=== PATIENT | male | born 1950 | race Caucasian/White ===

== ENCOUNTER 2018-03-13 10:09 | Inpatient (IN) | payer OTHER, MEDICARE ==
[~2018-03-13] VITALS: Ht 170.2 cm; Wt 73.6 kg
[2018-03-13 10:18] VITALS: BP 109/59; PULSE 77; RESP 16; TEMP 98.6; O2SAT 96
[2018-03-13 11:42] LABS: AUTOMATED NEUTROPHIL # 4.8 TH/MM3 (1.8-7.7); BASOPHIL # 0.1 TH/MM3 (0-0.2); BASOPHIL % 1.2 % (0.0-2.0); EOSINOPHIL # 0.1 TH/MM3 (0-0.4); EOSINOPHIL % 1.7 % (0.0-4.0); HEMOGLOBIN 14.1 GM/DL (13.0-17.0); LYMPH % 18.2 % (9.0-44.0); LYMPHOCYTE # 1.3 TH/MM3 (1.0-4.8); MEAN CELL VOLUME 91.8 FL (80.0-100.0); MEAN CORPUSCULAR HEMOGLOBIN 31.5 PG (27.0-34.0); MEAN CORPUSCULAR HGB CONC 34.4 % (32.0-36.0); MEAN PLATELET VOLUME 7.7 FL (7.0-11.0); MONO % 11.2 % (0.0-8.0); MONOCYTE # 0.8 TH/MM3 (0-0.9); NEUT % 67.7 % (16.0-70.0); PLATELET COUNT 392 TH/MM3 (150-450); RED BLOOD COUNT 4.47 MIL/MM3 (4.50-5.90); RED CELL DISTRIBUTION WIDTH 17.2 % (11.6-17.2); WHITE BLOOD COUNT 7.2 TH/MM3 (4.0-11.0)
--- NOTE | 2018-03-13 11:59 | PD ---
HPI Chief Complaint: Skin Problem Time Seen by Provider: 10:54 Travel History International Travel<30 days: No Contact w/Intl Traveler<30days: No Traveled to known affect area: No History of Present Illness HPI 68-year-old male with PMH of DM, HTN, paraplegia, current smoker presents the ED for evaluation of bilateral lower extremity cellulitis. Patient states it started with the bilateral great toes. He was seen at the [facility] and prescribed an unknown antibiotic for the last 10 days. Despite this the redness of the leg has continued to spread. He denies fevers, chills, nausea, vomiting. States that he recently ran his foot into the wall while using his wheelchair. Complains of 6/10 bilateral great toe pain, left greater than right, worsened by touch. No alleviating factors reported. Patient states that he just moved from [facility] ~7 weeks ago. Denies history of MRSA. PFSH Past Medical History Hx Anticoagulant Therapy: Yes High Cholesterol: Yes Neurologic: Yes (nerve damage in legs) Tetanus Vaccination: < 5 Years Social History Alcohol Use: Yes Tobacco Use: Yes Substance Use: No Allergies-Medications (Allergen,Severity, Reaction): Coded Allergies: No Known Allergies (Unverified , 03/13/18) Reported Meds & Prescriptions Reported Meds & Active Scripts Active Active Prescriptions or Reported Medications Unobtainable Review of Systems ROS Limitations: Poor Historian Except as stated in HPI: all other systems reviewed are Neg Physical Exam Exam Limitations: Poor Historian Narrative GENERAL: Pleasant white male, confined to a wheelchair, in no acute distress. SKIN: Focused skin assessment warm/dry. Warm, tender, erythema and edema to the knees bilaterally. HEAD: Atraumatic. Normocephalic. EYES: Pupils equal and round. No scleral icterus. No injection or drainage. ENT: No nasal bleeding or discharge. Mucous membranes pink and moist. NECK: Trachea midline. No JVD. CARDIOVASCULAR: Regular rate and rhythm. No murmur appreciated. RESPIRATORY: No accessory muscle use. Clear to auscultation. Breath sounds equal bilaterally. GASTROINTESTINAL: Abdomen soft, non-tender, nondistended. Hepatic and splenic margins not palpable. MUSCULOSKELETAL: No obvious deformities. No clubbing. No cyanosis. Bilateral great toes are erythematous, edematous, tender to touch. Left greater than right. Palpable DP pulses bilaterally. Patient is able to wiggle her toes bilaterally. Sensation intact to light touch distally bilaterally. NEUROLOGICAL: Awake and alert. No obvious cranial nerve deficits. Motor grossly within normal limits. Normal speech. PSYCHIATRIC: Appropriate mood and affect; insight and judgment normal. Data Data Last Documented VS Vital Signs Date Time Temp Pulse Resp B/P (MAP) Pulse Ox O2 Delivery O2 Flow Rate FiO2 03/13/18 10:18 98.6 77 16 109/59 (76) 96 Orders Orders Basic Metabolic Panel (Bmp) (03/13/18 11:12) Complete Blood Count With Diff (03/13/18 11:12) Iv Access Insert/Monitor (03/13/18 11:12) Blood Culture (03/13/18 11:25) Foot, Complete ([id number]) (03/13/18 11:25) Foot, Complete ([id number]) (03/13/18 11:25) Vancomycin Inj (Vancomycin Inj) (03/13/18 12:45) Piperacil-Tazo 4.5 Gm Premix (Zosyn 4.5 (03/13/18 12:45) Sodium Chlor 0.9% 1000 Ml Inj (Ns 1000 M (03/13/18 12:45) Nicotine 21 Mg Patch.24 Hr (Habitrol 21 (03/13/18 12:45) Diet Heart Healthy (03/13/18 Lunch) Furosemide Inj (Lasix Inj) (03/13/18 13:30) Consult Podiatry (03/13/18 ) Admit Order (Ed Use Only) (03/13/18 13:18) Labs Laboratory Tests Test 03/13/18 11:15 White Blood Count 7.2 TH/MM3 Red Blood Count 4.47 MIL/MM3 Hemoglobin 14.1 GM/DL Hematocrit 41.0 % Mean Corpuscular Volume 91.8 FL Mean Corpuscular Hemoglobin 31.5 PG Mean Corpuscular Hemoglobin Concent 34.4 % Red Cell Distribution Width 17.2 % Platelet Count 392 TH/MM3 Mean Platelet Volume 7.7 FL Neutrophils (%) (Auto) 67.7 % Lymphocytes (%) (Auto) 18.2 % Monocytes (%) (Auto) 11.2 % Eosinophils (%) (Auto) 1.7 % Basophils (%) (Auto) 1.2 % Neutrophils # (Auto) 4.8 TH/MM3 Lymphocytes # (Auto) 1.3 TH/MM3 Monocytes # (Auto) 0.8 TH/MM3 Eosinophils # (Auto) 0.1 TH/MM3 Basophils # (Auto) 0.1 TH/MM3 CBC Comment DIFF FINAL Differential Comment Blood Urea Nitrogen 6 MG/DL Creatinine 0.57 MG/DL Random Glucose 89 MG/DL Calcium Level 8.1 MG/DL Sodium Level 125 MEQ/L Potassium Level 3.5 MEQ/L Chloride Level 87 MEQ/L Carbon Dioxide Level 24.8 MEQ/L Anion Gap 13 MEQ/L Estimat Glomerular Filtration Rate 143 ML/MIN MDM Medical Decision Making Medical Screen Exam Complete: Yes Emergency Medical Condition: Yes Differential Diagnosis Great toe fracture versus cellulitis versus failed outpatient treatment versus sepsis versus other Narrative Course 68-year-old male with PMH of DM, HTN, paraplegia, current smoker presents the ED for evaluation of bilateral lower extremity cellulitis. [facility] Denies history of MRSA. States he ran into the wall with his wheelchair and complains of bilateral great toe pain. Afebrile on presentation. On exam there is erythema, tender edema in bilateral lower extremities extending to the knee. Left foot erythematous, tender to touch. No visible deformity. X-ray reveals distal phalanx fracture left great toe. No leukocytosis noted. Potassium 125, chloride 87. I discussed the results of the workup with the patient as well as the recommendation for admission. He is agreeable to the plan. Blood cultures were obtained. Patient was administered vancomycin and Zosyn IV. Podiatry consult placed. I spoke with Dr. Licona. He suspects hyponatremia secondary to lower extremity edema. [address] Licona will accept the patient to the medicine service. Please see medicine and podiatry notes for disposition. Diagnosis Primary Impression: Bilateral lower leg cellulitis Additional Impressions: Hyponatremia Fracture of left great toe Qualified Codes: S92.425A - Nondisplaced fracture of distal phalanx of left great toe, initial encounter for closed fracture Scripts Unable to Obtain Active Prescriptions or Reported Meds Kyra Rdz Mar 13, 2018 11:59
[2018-03-13 12:14] LABS: BICARBONATE 24.8 MEQ/L (21.0-32.0); CALCIUM 8.1 MG/DL (8.5-10.1); CREATININE 0.57 MG/DL (0.60-1.30)
--- NOTE | 2018-03-13 12:36 | RADRPT ---
EXAM DATE: 03/13/2018 12:28 PM EDT AGE/SEX: 68 years / Male INDICATIONS: Left foot pain, redness and swelling. Hit legs on a wall in his wheelchair. CLINICAL DATA: This is the patient's initial encounter. Patient reports that signs and symptoms have been present for 3 days and indicates a pain score of 10/10. MEDICAL/SURGICAL HISTORY: Hypertension. Paraplegia in legs. . ORIF left ankle COMPARISON: No prior exams available for comparison. FINDINGS: There is a complete fracture of the first distal phalanx partially extending intra-articularly. Diffu se osteopenia is seen with superimposed chronic degenerative change and vascular calcifications. Ther e are postsurgical changes involving the distal tibia and fibula. CONCLUSION: Fracture of the first distal phalanx. Electronically signed by: Jacobo Lora MD 03/13/2018 12:35 PM EDT
--- NOTE | 2018-03-13 12:37 | RADRPT ---
EXAM DATE: 03/13/2018 12:30 PM EDT AGE/SEX: 68 years / Male INDICATIONS: Right foot pain, swelling and redness. Ran into wall with wheelchair. CLINICAL DATA: This is the patient's initial encounter. Patient reports that signs and symptoms have been present for 3 days and indicates a pain score of 10/10. MEDICAL/SURGICAL HISTORY: Hypertension. Paraplegia in legs. None. COMPARISON: No prior exams available for comparison. FINDINGS: No definite fractures, or dislocations are identified. No definite lytic or sclerotic les ion is seen. Slight to moderate osteopenia is seen. There are atherosclerotic calcifications involvi ng the visualized blood vessels chronic in nature. CONCLUSION: Chronic changes and no definite fracture for technique. Electronically signed by: Jacobo Lora MD 03/13/2018 12:35 PM EDT
[2018-03-13] MEDS ORDERED: SODIUM CHLOR 0.9% 1000 ML INJ 1,000 ML IV ONE (12:45)
[2018-03-13] MEDS ORDERED: PIPERACIL-TAZO 4.5 GM PREMIX 100 ML IV ONE (12:45)
[2018-03-13] MEDS ORDERED: NICOTINE 21 MG/24 HR PATCH T-DERMAL ONE (12:45)
[2018-03-13] MEDS ORDERED: VANCOMYCIN INJ 1,000 MG in SODIUM CHLOR 0.9% 250 ML INJ 250 ML IV ONE (12:45)
[2018-03-13] MEDS ORDERED: FUROSEMIDE 40 MG/4 ML VIAL IV PUSH ONE (13:30)
[2018-03-13] MEDS ORDERED: NALOXONE HCL 0.4 MG/ML AMP IV PUSH PRN (14:30)
[2018-03-13] MEDS ORDERED: SODIUM CHLORIDE 0.9% FLUSH 10 ML FLUSH IV FLUSH PRN (14:30)
[2018-03-13] MEDS ORDERED: ACETAMINOPHEN 325 MG TAB PO PRN (14:30)
[2018-03-13] MEDS ORDERED: BISACODYL 10 MG SUPP RECTAL PRN (14:30)
[2018-03-13] MEDS ORDERED: LACTULOSE SYRUP 20 GM/30 ML CUP PO PRN (14:30)
[2018-03-13] MEDS ORDERED: SENNOSIDES 8.6 MG TAB PO PRN (14:30)
[2018-03-13] MEDS ORDERED: MAGNESIUM HYDROXIDE SUSP 30 ML CUP PO PRN (14:30)
[2018-03-13 16:07] VITALS: BP 128/62; PULSE 89; RESP 18; O2SAT 95
[2018-03-13] MEDS: ENOXAPARIN SODIUM 40 MG/0.4 ML SYRINGE SQ SCH (16:09)
[2018-03-13 17:15] VITALS: BP 105/67; PULSE 86; RESP 16; TEMP 98.1; O2SAT 94
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
[2018-03-13] MEDS: SODIUM CHLOR 0.9% 1000 ML INJ 1,000 ML IV SCH (18:00)
[2018-03-13 20:00] VITALS: BP 119/59; PULSE 91; RESP 18; TEMP 97.7; O2SAT 93
[2018-03-13] MEDS: DOCUSATE SODIUM 50 MG/SENNA 8.6 MG TAB PO SCH (20:30)
[2018-03-13] MEDS: MORPHINE SULFATE 4 MG/ML INJ IV PUSH PRN (20:30)
[2018-03-13] MEDS: SODIUM CHLORIDE 0.9% FLUSH 10 ML FLUSH IV FLUSH SCH (20:31)
[2018-03-13] MEDS: VANCOMYCIN INJ 1,000 MG in SODIUM CHLOR 0.9% 250 ML INJ 250 ML IV SCH (20:32)
[2018-03-13 21:38] LABS: INTERNATIONAL NORMALIZED RATIO 3.5 RATIO
[2018-03-13 21:43] LABS: CALCIUM 7.6 MG/DL (8.5-10.1); CREATININE 0.68 MG/DL (0.60-1.30)
[2018-03-13] MEDS: KETOROLAC TROMETHAMINE 10 MG TAB PO PRN (21:53)
[2018-03-14] VITALS (7 sets, daily range): BP systolic 117–158; BP diastolic 56–76; PULSE 87–93; RESP 16–18; TEMP 97.3–98.1; O2SAT 90–95
[2018-03-14] MEDS: SODIUM CHLOR 0.9% 1000 ML INJ 1,000 ML IV SCH ×2 (04:00→09:23)
[2018-03-14] MEDS: KETOROLAC TROMETHAMINE 10 MG TAB PO PRN ×3 (04:24→16:10)
[2018-03-14 07:35] LABS: AUTOMATED NEUTROPHIL # 3.8 TH/MM3 (1.8-7.7); BASOPHIL % 0.9 % (0.0-2.0); EOSINOPHIL # 0.1 TH/MM3 (0-0.4); EOSINOPHIL % 1.5 % (0.0-4.0); HEMATOCRIT 36.8 % (39.0-51.0); HEMOGLOBIN 12.4 GM/DL (13.0-17.0); LYMPH % 17.3 % (9.0-44.0); LYMPHOCYTE # 0.9 TH/MM3 (1.0-4.8); MEAN CELL VOLUME 91.8 FL (80.0-100.0); MEAN CORPUSCULAR HGB CONC 33.7 % (32.0-36.0); MEAN PLATELET VOLUME 7.3 FL (7.0-11.0); MONO % 11.3 % (0.0-8.0); MONOCYTE # 0.6 TH/MM3 (0-0.9); PLATELET COUNT 306 TH/MM3 (150-450); RED BLOOD COUNT 4.01 MIL/MM3 (4.50-5.90); RED CELL DISTRIBUTION WIDTH 17.3 % (11.6-17.2); WHITE BLOOD COUNT 5.4 TH/MM3 (4.0-11.0)
[2018-03-14 07:56] LABS: ALBUMIN 2.1 GM/DL (3.4-5.0); BICARBONATE 28.4 MEQ/L (21.0-32.0); CALCIUM-PROTEIN CORRECTED 7.8 MG/DL (8.5-10.1); CREATININE 0.57 MG/DL (0.60-1.30); TOTAL BILIRUBIN ADULT 0.4 MG/DL (0.2-1.0); TOTAL PROTEIN 5.5 GM/DL (6.4-8.2)
[2018-03-14] MEDS: DOCUSATE SODIUM 50 MG/SENNA 8.6 MG TAB PO SCH ×2 (09:23→21:00)
[2018-03-14] MEDS: VANCOMYCIN INJ 1,000 MG in SODIUM CHLOR 0.9% 250 ML INJ 250 ML IV SCH ×2 (09:23→11:27)
[2018-03-14] MEDS: SODIUM CHLORIDE 0.9% FLUSH 10 ML FLUSH IV FLUSH SCH ×2 (09:24→21:26)
[2018-03-14] MEDS ORDERED: POTASSIUM CHLORIDE 20 MEQ CONTROLLED RELEASE TAB PO ONE (09:30)
[2018-03-14] MEDS: POTASSIUM CHLOR 20 MEQ PREMIX 100 ML IV SCH ×2 (09:33→12:00)
[2018-03-14] MEDS ORDERED: CALCIUM CHLORIDE INJ 2 GM in SODIUM CHLORIDE 0.9% INJ 100 ML IV ONE (10:00)
[2018-03-14] MEDS: MORPHINE SULFATE 4 MG/ML INJ IV PUSH PRN ×3 (11:27→21:20)
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
[2018-03-14] MEDS: ENOXAPARIN SODIUM 40 MG/0.4 ML SYRINGE SQ SCH (16:21)
--- NOTE | 2018-03-14 16:56 | HHI.PR ---
Subjective Remarks Deferred entry, the patient was seen earlier at 9:30 AM. Patient is threatening to leave AGAINST MEDICAL ADVICE. States pain in lower extremities is still present but improved. Denies fevers or chills. Denies chest pain or shortness of breath. Potassium critically low. Objective Vitals Vital Signs Date Time Temp Pulse Resp B/P (MAP) Pulse Ox O2 Delivery O2 Flow Rate FiO2 03/14/18 12:16 95 Nasal Cannula 3.00 03/14/18 12:05 94 Nasal Cannula 3.00 03/14/18 12:00 98.0 90 16 158/75 (102) 90 03/14/18 08:00 98.1 92 16 156/71 (99) 93 03/14/18 04:00 97.8 93 18 138/67 (90) 92 03/14/18 00:00 97.5 87 18 117/56 (76) 94 03/13/18 20:30 94 Nasal Cannula 3.00 03/13/18 20:00 97.7 91 18 119/59 (79) 93 03/13/18 17:42 94 Nasal Cannula 3.00 03/13/18 17:15 98.1 86 16 105/67 (80) 94 03/13/18 17:06 I/O 03/13/18 03/13/18 03/13/18 03/14/18 03/14/18 03/14/18 07:00 15:00 23:00 07:00 15:00 23:00 Intake Total 1350 ml 550 ml Output Total 2200 ml 300 ml 600 ml Balance 1350 ml -2200 ml -300 ml -50 ml Intake IV Total 1350 ml 550 ml Output Urine Total 2200 ml 300 ml 600 ml # Voids 1 1 # Bowel Movements 1 Result Diagram: 03/14/18 0721 03/14/18 0721 Imaging Last Impressions Foot X-Ray 03/13/18 1125 Signed Impressions: CONCLUSION: Fracture of the first distal phalanx. Objective Remarks AAOx3 Clear lungs BL S1S2 RRR, no MRG abdomen soft, nt, nd Swelling with erythema, warmth, tenderness to touch in bilateral extremities. A/P Problem List: (1) Bilateral lower leg cellulitis ICD Code: L03.116 - Cellulitis of left lower limb; L03.115 - Cellulitis of right lower limb Status: Acute Plan: The patient admitted to the medical floor. Start an IV vancomycin IV cefazolin. Status post IV vancomycin IV Zosyn in the emergency department. ID consulted. Appreciate recommendations. Discontinue IV vancomycin and continue IV cefazolin. Monitor response to antibiotic therapy. Blood cultures negative to date. Continue pain control with p.o. Toradol and IV morphine sulfate for breakthrough pain. (2) Fracture of left great toe ICD Code: S92.402A - Displaced unspecified fracture of left great toe, initial encounter for closed fracture Status: Acute Plan: Podiatry consulted. Recommendations pending. (3) Hyponatremia ICD Code: E87.1 - Hypo-osmolality and hyponatremia Status: Acute Plan: Sodium seems to be improving. Up to 130. Discontinue IV normal saline. Monitor BMP (4) Hypokalemia ICD Code: E87.6 - Hypokalemia Status: Acute Plan: Severe hypokalemia with a potassium of 2.8. Replace orally and with IV potassium chloride. Continue to monitor BMP. (5) Hypocalcemia ICD Code: E83.51 - Hypocalcemia Status: Acute Plan: Replace with IV calcium chloride. Continue to monitor calcium levels. Assessment and Plan DVT prophylaxis: Lovenox subcutaneously. Discharge Planning Continue to monitor and the medical floor. Possible discharge in 1-2 days. Problem Qualifiers (1) Fracture of left great toe: Qualified Codes: S92.425A - Nondisplaced fracture of distal phalanx of left great toe, initial encounter for closed fracture Jamshid Reynoso MD Mar 14, 2018 16:56
--- NOTE | 2018-03-14 17:45 | MB ---
cc: Aba Gordillo DPM DATE: 03/14/2018 REASON FOR CONSULTATION: Hallux fracture, lower extremity cellulitis. HISTORY OF PRESENT ILLNESS: This is a 68-year-old male who presented to [facility] with redness and pain in the extremities. Redness started approximately 10 days ago. He was seen at the [facility] and prescribed an antibiotic, which was not helpful. The patient reports an injury in which he ran his foot into a wall. Otherwise, no obvious incident. PAST MEDICAL HISTORY: Hypercholesteremia, hypertension, diabetes, paraplegia, peripheral vascular disease, ORIF of the ankle after being injured with a bear trap. OUTPATIENT MEDICATIONS: Poor historian when it comes to outpatient medications. INPATIENT MEDICATIONS: Cefazolin and vancomycin. Please see complete medication list in chart. ALLERGIES: NO KNOWN DRUG ALLERGIES. PHYSICAL EXAMINATION: VITAL SIGNS: Temperature 98, pulse rate 90, respiratory rate 16, blood pressure 158/75, saturating 95% on 3 liters nasal cannula. GENERAL: Alert and oriented male, seen bedside. EXTREMITIES: Bilateral lower extremities were examined. There is noted to be diffuse muscle wasting. Erythema of the bilateral calves. Superficial abrasions to the dorsum of the feet. They appeared to be a very superficial. No obvious signs of abscess or cellulitis. Left hallux, there is edema, ecchymosis and early signs of a superficial eschar over the dorsal aspect of the proximal phalanx. There is extreme tenderness upon attempting range of motion. The knees are noted to be in a mild flexure contracture. Limited range of motion of the lower extremities: Pulses are hard to palpate, specifically the posterior tibialis on the left. LABORATORY FINDINGS: White blood cell 5.4, hemoglobin and hematocrit 12 and 36, platelet count 306. Chem-7: Sodium 130, potassium 2.8, chloride 92, CO2 of 28.4, BUN is 3, creatinine 0.57, random glucose is 112. Microbiology: Aerobic blood culture, no growth. IMAGING FINDINGS: Right foot: Chronic changes, osteopenia, no obvious acute fracture. Left lower extremity x-rays: Fracture of the distal phalanx extending intraarticularly with good alignment. There appears to be post-surgical changes involving the distal tibia and fibula. Evidence of old placement of hardware. ASSESSMENT: Left hallux fracture, cellulitis, bilateral lower extremities. Rule out peripheral vascular disease. RECOMMENDATION: ABIs to be ordered to be certain blood flow is adequate for healing. Otherwise, the patient can followup with the [facility] outpatient. Recommend a postop shoe, fracture shoe for immobilization, which will be ordered to bedside. If blood flow comes back reasonable, no reason for the patient to stay in-house; however, [facility]. NIKITA Sinha/RHETT , 05:27 PM , 05:44 PM
[2018-03-14] MEDS: ceFAZolin 2 GM PREMIX 50 ML IV SCH (21:17)
[2018-03-15] VITALS (7 sets, daily range): BP systolic 112–155; BP diastolic 68–82; PULSE 87–114; RESP 18; TEMP 97.8–99.1; O2SAT 90–97
[2018-03-15] MEDS: MORPHINE SULFATE 4 MG/ML INJ IV PUSH PRN ×5 (03:20→22:33)
[2018-03-15] MEDS: ceFAZolin 2 GM PREMIX 50 ML IV SCH ×3 (05:04→20:32)
[2018-03-15] MEDS: DOCUSATE SODIUM 50 MG/SENNA 8.6 MG TAB PO SCH ×3 (07:55→20:32)
[2018-03-15] MEDS: SODIUM CHLORIDE 0.9% FLUSH 10 ML FLUSH IV FLUSH SCH ×2 (07:55→20:32)
[2018-03-15 09:39] LABS: AUTOMATED NEUTROPHIL # 4.9 TH/MM3 (1.8-7.7); BASOPHIL # 0.1 TH/MM3 (0-0.2); BASOPHIL % 1.2 % (0.0-2.0); EOSINOPHIL % 0.7 % (0.0-4.0); HEMATOCRIT 40.3 % (39.0-51.0); HEMOGLOBIN 13.8 GM/DL (13.0-17.0); LYMPH % 13.2 % (9.0-44.0); LYMPHOCYTE # 0.9 TH/MM3 (1.0-4.8); MEAN CELL VOLUME 91.2 FL (80.0-100.0); MEAN CORPUSCULAR HEMOGLOBIN 31.3 PG (27.0-34.0); MEAN CORPUSCULAR HGB CONC 34.3 % (32.0-36.0); MEAN PLATELET VOLUME 7.7 FL (7.0-11.0); MONO % 10.3 % (0.0-8.0); MONOCYTE # 0.7 TH/MM3 (0-0.9); NEUT % 74.6 % (16.0-70.0); PLATELET COUNT 288 TH/MM3 (150-450); RED BLOOD COUNT 4.42 MIL/MM3 (4.50-5.90); WHITE BLOOD COUNT 6.6 TH/MM3 (4.0-11.0)
[2018-03-15 10:28] LABS: ALBUMIN 2.1 GM/DL (3.4-5.0); ALKALINE PHOSPHATASE 132 U/L (45-117); ALT (GPT) 13 U/L (12-78); AST (GOT) 20 U/L (15-37); BICARBONATE 25.1 MEQ/L (21.0-32.0); BLOOD UREA NITROGEN 1 MG/DL (7-18); CHLORIDE 90 MEQ/L (98-107); GLOMERULAR FILTRATION RATE 215 ML/MIN (>89); GLUCOSE,RANDOM 117 MG/DL (74-106); MAGNESIUM 1.4 MG/DL (1.5-2.5); PHOSPHORUS 2.6 MG/DL (2.5-4.9); SODIUM (NA) 126 MEQ/L (136-145); TOTAL BILIRUBIN ADULT 0.5 MG/DL (0.2-1.0); TOTAL PROTEIN 6.1 GM/DL (6.4-8.2)
[2018-03-15] MEDS: KETOROLAC TROMETHAMINE 10 MG TAB PO PRN (10:40)
--- NOTE | 2018-03-15 12:50 | RADRPT ---
EXAM DATE: 03/15/2018 11:48 AM EDT AGE/SEX: 68 years / Male INDICATIONS: Bilateral lower extremity cellulitis CLINICAL DATA: This is the patient's initial encounter. Patient reports that signs and symptoms have been present for 2 weeks and indicates a pain score of 6/10. MEDICAL/SURGICAL HISTORY: . Bilateral lower extremity cellulitis, left great toe fracture, diab etes mellitus, hyperlipidemia, hypertension, nerve damage legs, smoking, hyponatremia . COMPARISON: No prior exams available for comparison. TECHNIQUE: Four-cuff ankle and brachial pressures were obtained. Pulse cuff waveform tracings of the ankles were recorded, and ankle-brachial indices were calculated. PRESSURES (mmHg): Brachial (arm) : RIGHT: IV SITE, LEFT: 141 Ankle : RIGHT: 95, LEFT: 78 ALAINA : RIGHT: 0.67, LEFT: 0.55 TBI : RIGHT: 0.00, LEFT: 0.00 PULSED CUFF WAVEFORMS: There is blunting of the waveform bilaterally. CONCLUSION: 1. Significantly diminished ABIs bilaterally. CT angiography and runoff would be warranted for more definitive assessment. 2. No definite pulse could be identified within the great toe bilaterally. Electronically signed by: Martir Zacarias MD 03/15/2018 12:49 PM EDT
[2018-03-15] MEDS: ENOXAPARIN SODIUM 40 MG/0.4 ML SYRINGE SQ SCH (14:05)
--- NOTE | 2018-03-15 14:22 | HHI.IDPN ---
Note Infectious Disease Note Patient states that he feels better. He notes that the leg pain is improved. Afebrile. Admitted after failed outpatient oral antibiotic treatment for cellulitis. PAST MEDICAL HISTORY: Paraplegia, peripheral vascular disease, hypercholesterolemia, left ankle repair surgery. ALLERGIES: NO KNOWN DRUG ALLERGIES. MEDICATIONS: Current Medications Medications (Trade) Dose Ordered Sig/Geoffrey Route PRN Reason Start Time Stop Time Status Last Admin Dose Admin Sodium Chloride (NS Flush) 2 ml UNSCH PRN IV FLUSH FLUSH AFTER USING IV ACCESS 03/13/18 14:30 Sodium Chloride (NS Flush) 2 ml BID IV FLUSH 03/13/18 21:00 03/15/18 07:55 Acetaminophen (Tylenol) 650 mg Q4H PRN PO TEMP > 100.4 03/13/18 14:30 Enoxaparin Sodium (Lovenox Inj) 40 mg Q24H SQ 03/13/18 16:00 03/15/18 14:05 Naloxone HCl (Narcan Inj) 0.4 mg UNSCH PRN IV PUSH SEE LABEL COMMENTS 03/13/18 14:30 Senna/Docusate Sodium (Felicia-Colace) 1 tab BID PO 03/13/18 21:00 03/14/18 09:23 Magnesium Hydroxide (Milk Of Magnesia Liq) 30 ml Q12H PRN PO Mild constipation 03/13/18 14:30 Sennosides (Senokot) 17.2 mg Q12H PRN PO Moderate constipation 03/13/18 14:30 Bisacodyl (Dulcolax Supp) 10 mg DAILY PRN RECTAL SEVERE CONSITIPATION 03/13/18 14:30 Lactulose (Lactulose Liq) 30 ml DAILY PRN PO SEVERE CONSITIPATION 03/13/18 14:30 Ketorolac Tromethamine (Toradol) 10 mg Q6H PRN PO PAIN 1 TO 10 AND/OR AGITATION 03/13/18 18:00 03/18/18 17:59 03/15/18 10:40 Morphine Sulfate (Morphine Inj) 2 mg Q4H PRN IV PUSH BREAKTHROUGH PAIN 03/13/18 18:00 03/15/18 14:06 Cefazolin Sodium/ Dextrose 50 ml @ 200 mls/hr Q8H IV 03/14/18 21:00 03/15/18 14:04 OBJECTIVE: Vital Signs Date Time Temp Pulse Resp B/P (MAP) Pulse Ox O2 Delivery O2 Flow Rate FiO2 03/15/18 12:00 99.1 87 18 147/79 (101) 90 03/15/18 10:50 94 Nasal Cannula 3.00 03/15/18 08:00 97.8 102 18 131/68 (89) 94 03/15/18 04:00 98.7 101 18 151/82 (105) 93 03/15/18 00:00 97.9 99 18 155/74 (101) 93 03/14/18 20:00 97.3 92 18 135/67 (89) 95 03/14/18 16:00 97.8 88 18 143/76 (98) 94 Laboratory Tests Test 03/14/18 07:21 03/15/18 09:10 White Blood Count 5.4 TH/MM3 6.6 TH/MM3 Red Blood Count 4.01 MIL/MM3 4.42 MIL/MM3 Hemoglobin 12.4 GM/DL 13.8 GM/DL Hematocrit 36.8 % 40.3 % Mean Corpuscular Volume 91.8 FL 91.2 FL Mean Corpuscular Hemoglobin 31.0 PG 31.3 PG Mean Corpuscular Hemoglobin Concent 33.7 % 34.3 % Red Cell Distribution Width 17.3 % 17.0 % Platelet Count 306 TH/MM3 288 TH/MM3 Mean Platelet Volume 7.3 FL 7.7 FL Neutrophils (%) (Auto) 69.0 % 74.6 % Lymphocytes (%) (Auto) 17.3 % 13.2 % Monocytes (%) (Auto) 11.3 % 10.3 % Eosinophils (%) (Auto) 1.5 % 0.7 % Basophils (%) (Auto) 0.9 % 1.2 % Neutrophils # (Auto) 3.8 TH/MM3 4.9 TH/MM3 Lymphocytes # (Auto) 0.9 TH/MM3 0.9 TH/MM3 Monocytes # (Auto) 0.6 TH/MM3 0.7 TH/MM3 Eosinophils # (Auto) 0.1 TH/MM3 0.0 TH/MM3 Basophils # (Auto) 0.0 TH/MM3 0.1 TH/MM3 CBC Comment DIFF FINAL DIFF FINAL Differential Comment Laboratory Tests Test 03/13/18 20:02 03/14/18 07:21 03/15/18 09:10 Blood Urea Nitrogen 5 MG/DL 3 MG/DL 1 MG/DL Creatinine 0.68 MG/DL 0.57 MG/DL 0.40 MG/DL Random Glucose 128 MG/DL 112 MG/DL 117 MG/DL Calcium Level 7.6 MG/DL 7.0 MG/DL 8.0 MG/DL Sodium Level 133 MEQ/L 130 MEQ/L 126 MEQ/L Potassium Level 3.1 MEQ/L 2.8 MEQ/L 3.3 MEQ/L Chloride Level 94 MEQ/L 92 MEQ/L 90 MEQ/L Carbon Dioxide Level 28.0 MEQ/L 28.4 MEQ/L 25.1 MEQ/L Anion Gap 11 MEQ/L 10 MEQ/L 11 MEQ/L Estimat Glomerular Filtration Rate 117 ML/MIN 143 ML/MIN 215 ML/MIN Total Protein 5.5 GM/DL 6.1 GM/DL Albumin 2.1 GM/DL 2.1 GM/DL Alkaline Phosphatase 127 U/L 132 U/L Aspartate Amino Transf (AST/SGOT) 21 U/L 20 U/L Alanine Aminotransferase (ALT/SGPT) 12 U/L 13 U/L Total Bilirubin 0.4 MG/DL 0.5 MG/DL Protein Corrected Calcium 7.8 MG/DL Phosphorus Level 2.6 MG/DL Magnesium Level 1.4 MG/DL Microbiology Date/Time Source Procedure Growth Status 03/13/18 11:25 Blood Line Aerobic Blood Culture - Preliminary NO GROWTH IN 2 DAYS Resulted 03/13/18 11:25 Blood Line Anaerobic Blood Culture - Preliminary NO GROWTH IN 2 DAYS Resulted 03/13/18 11:20 Blood Line Aerobic Blood Culture - Preliminary NO GROWTH IN 2 DAYS Resulted 03/13/18 11:20 Blood Line Anaerobic Blood Culture - Preliminary NO GROWTH IN 2 DAYS Resulted PHYSICAL EXAMINATION: GENERAL: No acute distress. HEENT: The head is atraumatic. Extraocular movements are grossly intact. Pupils reactive to light. No icterus. Oropharynx moist mucosa without lesions. NECK: Supple without swelling or adenopathy. LUNGS: Clear to auscultation. HEART: Regular S1 and S2, without murmurs, rubs or gallops. ABDOMEN: Bowel sounds present. Soft, nontender. GENITOURINARY: Normal genitalia. EXTREMITIES: Erythema of both legs has improved. Patient still has a fair amount of erythema. Decreased edema. Peeling of skin at the feet. No drainage. NEUROLOGIC: The patient is paraplegic. PSYCHIATRIC: The patient is calm, irate. IMPRESSION: Bilateral lower extremity cellulitis. The patient failed outpatient oral antibiotic treatment. Improving. RECOMMENDATIONS: 1. Continue cefazolin. 2. Monitor response to antibiotic. If there continues to be continued improvement tomorrow We may be able to send him out on p.o. Keflex. Per his description of antibiotics he was receiving it appears that he may have been on Bactrim. If the cellulitis does not show additional improvement he may require a course of IV antibiotics outpatient. Rahat Le MD Mar 15, 2018 14:22
--- NOTE | 2018-03-15 17:22 | HHI.PR ---
Subjective Remarks Deferred entry - patient seen in am patient c/o bl foot pain States redness and swelling is improving. Denies fevers or chills Objective Vitals Vital Signs Date Time Temp Pulse Resp B/P (MAP) Pulse Ox O2 Delivery O2 Flow Rate FiO2 03/15/18 15:37 97.9 114 18 129/78 (95) 91 03/15/18 12:00 99.1 87 18 147/79 (101) 90 03/15/18 10:50 94 Nasal Cannula 3.00 03/15/18 08:00 97.8 102 18 131/68 (89) 94 03/15/18 04:00 98.7 101 18 151/82 (105) 93 03/15/18 00:00 97.9 99 18 155/74 (101) 93 03/14/18 20:00 97.3 92 18 135/67 (89) 95 I/O 03/14/18 03/14/18 03/14/18 03/15/18 03/15/18 03/15/18 07:00 15:00 23:00 07:00 15:00 23:00 Intake Total 550 ml 871 ml 50 ml Output Total 300 ml 600 ml 920 ml 1600 ml Balance -300 ml -50 ml -49 ml -1600 ml 50 ml Intake IV Total 550 ml 871 ml 50 ml Output Urine Total 300 ml 600 ml 920 ml 1600 ml # Voids 1 # Bowel Movements 1 1 Result Diagram: 03/15/18 0910 03/15/18 0910 Imaging Last Impressions Extremity Arterial Study 03/14/18 0000 Signed Impressions: CONCLUSION: 1. Significantly diminished ABIs bilaterally. CT angiography and runoff would be warranted for more definitive assessment. 2. No definite pulse could be identified within the great toe bilaterally. Foot X-Ray 03/13/18 1125 Signed Impressions: CONCLUSION: Fracture of the first distal phalanx. Objective Remarks AAOx3 Clear lungs BL S1S2 RRR, no MRG abdomen soft, nt, nd Swelling with erythema, warmth, tenderness to touch in bilateral extremities - improving A/P Problem List: (1) Bilateral lower leg cellulitis ICD Code: L03.116 - Cellulitis of left lower limb; L03.115 - Cellulitis of right lower limb Status: Acute Plan: The patient admitted to the medical floor. Start an IV vancomycin IV cefazolin. Status post IV vancomycin IV Zosyn in the emergency department. ID consulted. Appreciate recommendations. Discontinue IV vancomycin and continue IV cefazolin. Monitor response to antibiotic therapy. Blood cultures negative to date. Continue pain control with p.o. Toradol and IV morphine sulfate for breakthrough pain. will start gabapentin for pain control (2) Fracture of left great toe ICD Code: S92.402A - Displaced unspecified fracture of left great toe, initial encounter for closed fracture Status: Acute Plan: Appreciate podiatry recommendations. Discussed the case with Dr Marquis, vascular surgery will be consulted since ALAINA 's abnormal. (3) Hyponatremia ICD Code: E87.1 - Hypo-osmolality and hyponatremia Status: Acute Plan: Sodium seems to be improving. Up to 130. Discontinue IV normal saline. Monitor BMP / Sodium trending down. Patient with negative fluid balance - likely hypovolemic hyponatremia. Start normal saline (4) Hypokalemia ICD Code: E87.6 - Hypokalemia Status: Acute Plan: K improving. Replace orally. monitor bmp in am.. (5) Hypocalcemia ICD Code: E83.51 - Hypocalcemia Status: Acute Plan: sp replacement with IV calcium chloride. Calcium within normal ramge. Monitor calcium levels. Assessment and Plan DVT prophylaxis: Lovenox subcutaneously. Discharge Planning Continue to monitor and the medical floor. Pending vascular surgery consultation, podiatry and ID. Problem Qualifiers (1) Fracture of left great toe: Qualified Codes: S92.425A - Nondisplaced fracture of distal phalanx of left great toe, initial encounter for closed fracture Jamshid Reynoso MD Mar 15, 2018 17:22
--- NOTE | 2018-03-15 19:39 | HHI.PR ---
Subjective Remarks Pain remains of the left foot, no events over night. Objective Vital Signs Date Time Temp Pulse Resp B/P (MAP) Pulse Ox O2 Delivery O2 Flow Rate FiO2 03/15/18 15:37 97.9 114 18 129/78 (95) 91 03/15/18 12:00 99.1 87 18 147/79 (101) 90 03/15/18 10:50 94 Nasal Cannula 3.00 03/15/18 08:00 97.8 102 18 131/68 (89) 94 03/15/18 04:00 98.7 101 18 151/82 (105) 93 03/15/18 00:00 97.9 99 18 155/74 (101) 93 03/14/18 20:00 97.3 92 18 135/67 (89) 95 I/O 03/14/18 03/14/18 03/14/18 03/15/18 03/15/18 03/15/18 07:00 15:00 23:00 07:00 15:00 23:00 Intake Total 550 ml 871 ml 50 ml Output Total 300 ml 600 ml 920 ml 1600 ml Balance -300 ml -50 ml -49 ml -1600 ml 50 ml Intake IV Total 550 ml 871 ml 50 ml Output Urine Total 300 ml 600 ml 920 ml 1600 ml # Voids 1 # Bowel Movements 1 1 Result Diagram: 03/15/18 0910 03/15/18 0910 Imaging Last 72 hours Impressions Extremity Arterial Study 03/14/18 0000 Signed Impressions: CONCLUSION: 1. Significantly diminished ABIs bilaterally. CT angiography and runoff would be warranted for more definitive assessment. 2. No definite pulse could be identified within the great toe bilaterally. Foot X-Ray 03/13/18 1125 Signed Impressions: CONCLUSION: Fracture of the first distal phalanx. Foot X-Ray 03/13/18 1125 Signed Impressions: CONCLUSION: Chronic changes and no definite fracture for technique. Objective Remarks GENERAL: Alert and oriented male, seen bedside. EXTREMITIES: Bilateral lower extremities were examined. There is noted to be diffuse muscle wasting. Erythema of the bilateral calves. Superficial abrasions to the dorsum of the feet. They appeared to be a very superficial. No obvious signs of abscess or cellulitis. Left hallux, there is edema, ecchymosis and early signs of a superficial eschar over the dorsal aspect of the proximal phalanx. There is extreme tenderness upon attempting range of motion. The knees are noted to be in a mild flexure contracture. Limited range of motion of the lower extremities: Pulses are hard to palpate, specifically the posterior tibialis on the left. Medications and IVs Administered Medications Medications (Trade) Dose Ordered Sig/Geoffrey Route PRN Reason Start Time Stop Time Status Last Admin Dose Admin Sodium Chloride (NS Flush) 2 ml BID IV FLUSH 03/13/18 21:00 03/15/18 07:55 Enoxaparin Sodium (Lovenox Inj) 40 mg Q24H SQ 03/13/18 16:00 03/15/18 14:05 Senna/Docusate Sodium (Felicia-Colace) 1 tab BID PO 03/13/18 21:00 03/14/18 09:23 Ketorolac Tromethamine (Toradol) 10 mg Q6H PRN PO PAIN 1 TO 10 AND/OR AGITATION 03/13/18 18:00 03/18/18 17:59 03/15/18 10:40 Morphine Sulfate (Morphine Inj) 2 mg Q4H PRN IV PUSH BREAKTHROUGH PAIN 03/13/18 18:00 03/15/18 18:07 Cefazolin Sodium/ Dextrose 50 ml @ 200 mls/hr Q8H IV 03/14/18 21:00 03/15/18 14:04 Assessment and Plan Assessment and Plan Left hallux fracture, abrasion, PVD, possible early ischemic changes. Reviewed ALAINA's with patient. Informed him that he may not heal the toe injury given blood flow. Requesting Vascular consult to evaluate. Follow up 1-2 days. Continue post op shoe and monitoring of healing, do not recommend ice at this point Aba Gordillo DPM Mar 15, 2018 19:39
[2018-03-15] MEDS ORDERED: GABA800T PO (20:41)
[2018-03-16] VITALS: BP 154/80; PULSE 98; RESP 17; TEMP 98.6; O2SAT 95
[2018-03-16] MEDS ORDERED: NS + KCL 20 MEQ INJ 1,000 ML IV SCH
[2018-03-16] MEDS: KETOROLAC TROMETHAMINE 10 MG TAB PO PRN ×3 (02:23→18:09)
[2018-03-16] MEDS: NS + KCL 20 MEQ INJ 1,000 ML IV SCH ×2 (02:24→11:42)
[2018-03-16] MEDS: ceFAZolin 2 GM PREMIX 50 ML IV SCH ×3 (03:55→20:27)
[2018-03-16] MEDS: MORPHINE SULFATE 4 MG/ML INJ IV PUSH PRN ×4 (03:55→20:28)
[2018-03-16 03:56] VITALS: BP 142/77; PULSE 88; RESP 18; TEMP 98.3; O2SAT 95
[2018-03-16 07:08] LABS: BICARBONATE 27.1 MEQ/L (21.0-32.0); CALCIUM 7.6 MG/DL (8.5-10.1); CREATININE 0.46 MG/DL (0.60-1.30)
[2018-03-16 08:00] VITALS: BP 139/76; PULSE 91; RESP 18; TEMP 98; O2SAT 92
[2018-03-16] MEDS: GABAPENTIN 300 MG CAP PO SCH ×3 (08:10→18:09)
[2018-03-16] MEDS: SODIUM CHLORIDE 0.9% FLUSH 10 ML FLUSH IV FLUSH SCH ×2 (08:11→20:28)
[2018-03-16] MEDS: DOCUSATE SODIUM 50 MG/SENNA 8.6 MG TAB PO SCH ×2 (08:11→20:28)
[2018-03-16] MEDS ORDERED: POTASSIUM CHLORIDE 10 MEQ CONTROLLED RELEASE TAB PO ONE (09:00)
--- NOTE | 2018-03-16 11:19 | HHI.IDPN ---
Note Infectious Disease Note Patient notes that he feels okay. Has pain in the left foot. No other complaints. Afebrile. Admitted after failed outpatient oral antibiotic treatment for cellulitis. PAST MEDICAL HISTORY: Paraplegia, peripheral vascular disease, hypercholesterolemia, left ankle repair surgery. ALLERGIES: NO KNOWN DRUG ALLERGIES. MEDICATIONS: Current Medications Medications (Trade) Dose Ordered Sig/Geoffrey Route PRN Reason Start Time Stop Time Status Last Admin Dose Admin Sodium Chloride (NS Flush) 2 ml UNSCH PRN IV FLUSH FLUSH AFTER USING IV ACCESS 03/13/18 14:30 Sodium Chloride (NS Flush) 2 ml BID IV FLUSH 03/13/18 21:00 03/16/18 08:11 Acetaminophen (Tylenol) 650 mg Q4H PRN PO TEMP > 100.4 03/13/18 14:30 Enoxaparin Sodium (Lovenox Inj) 40 mg Q24H SQ 03/13/18 16:00 03/15/18 14:05 Naloxone HCl (Narcan Inj) 0.4 mg UNSCH PRN IV PUSH SEE LABEL COMMENTS 03/13/18 14:30 Senna/Docusate Sodium (Felicia-Colace) 1 tab BID PO 03/13/18 21:00 03/15/18 20:32 Magnesium Hydroxide (Milk Of Magnesia Liq) 30 ml Q12H PRN PO Mild constipation 03/13/18 14:30 Sennosides (Senokot) 17.2 mg Q12H PRN PO Moderate constipation 03/13/18 14:30 Bisacodyl (Dulcolax Supp) 10 mg DAILY PRN RECTAL SEVERE CONSITIPATION 03/13/18 14:30 Lactulose (Lactulose Liq) 30 ml DAILY PRN PO SEVERE CONSITIPATION 03/13/18 14:30 Ketorolac Tromethamine (Toradol) 10 mg Q6H PRN PO PAIN 1 TO 10 AND/OR AGITATION 03/13/18 18:00 03/18/18 17:59 03/16/18 02:23 Morphine Sulfate (Morphine Inj) 2 mg Q4H PRN IV PUSH BREAKTHROUGH PAIN 03/13/18 18:00 03/16/18 08:11 Cefazolin Sodium/ Dextrose 50 ml @ 200 mls/hr Q8H IV 03/14/18 21:00 03/16/18 03:55 Gabapentin (Neurontin) 300 mg TID PO 03/16/18 09:00 03/16/18 08:10 Potassium Chloride/Sodium Chloride 1,000 ml @ 84 mls/hr [id number] IV 03/16/18 00:00 03/16/18 02:24 OBJECTIVE: Vital Signs Date Time Temp Pulse Resp B/P (MAP) Pulse Ox O2 Delivery O2 Flow Rate FiO2 03/16/18 08:00 98.0 91 18 139/76 (97) 92 03/16/18 07:00 95 Nasal Cannula 3.00 03/16/18 03:56 98.3 88 18 142/77 (98) 95 03/16/18 00:00 98.6 98 17 154/80 (104) 95 03/15/18 20:36 95 Nasal Cannula 3.00 03/15/18 20:00 98.6 100 18 112/78 (89) 97 03/15/18 15:37 97.9 114 18 129/78 (95) 91 03/15/18 12:00 99.1 87 18 147/79 (101) 90 Laboratory Tests Test 03/15/18 09:10 White Blood Count 6.6 TH/MM3 Red Blood Count 4.42 MIL/MM3 Hemoglobin 13.8 GM/DL Hematocrit 40.3 % Mean Corpuscular Volume 91.2 FL Mean Corpuscular Hemoglobin 31.3 PG Mean Corpuscular Hemoglobin Concent 34.3 % Red Cell Distribution Width 17.0 % Platelet Count 288 TH/MM3 Mean Platelet Volume 7.7 FL Neutrophils (%) (Auto) 74.6 % Lymphocytes (%) (Auto) 13.2 % Monocytes (%) (Auto) 10.3 % Eosinophils (%) (Auto) 0.7 % Basophils (%) (Auto) 1.2 % Neutrophils # (Auto) 4.9 TH/MM3 Lymphocytes # (Auto) 0.9 TH/MM3 Monocytes # (Auto) 0.7 TH/MM3 Eosinophils # (Auto) 0.0 TH/MM3 Basophils # (Auto) 0.1 TH/MM3 CBC Comment DIFF FINAL Differential Comment Laboratory Tests Test 03/15/18 09:10 03/16/18 05:57 Blood Urea Nitrogen 1 MG/DL 2 MG/DL Creatinine 0.40 MG/DL 0.46 MG/DL Random Glucose 117 MG/DL 102 MG/DL Total Protein 6.1 GM/DL Albumin 2.1 GM/DL Calcium Level 8.0 MG/DL 7.6 MG/DL Phosphorus Level 2.6 MG/DL Magnesium Level 1.4 MG/DL Alkaline Phosphatase 132 U/L Aspartate Amino Transf (AST/SGOT) 20 U/L Alanine Aminotransferase (ALT/SGPT) 13 U/L Total Bilirubin 0.5 MG/DL Sodium Level 126 MEQ/L 129 MEQ/L Potassium Level 3.3 MEQ/L 3.1 MEQ/L Chloride Level 90 MEQ/L 92 MEQ/L Carbon Dioxide Level 25.1 MEQ/L 27.1 MEQ/L Anion Gap 11 MEQ/L 10 MEQ/L Estimat Glomerular Filtration Rate 215 ML/MIN 183 ML/MIN Microbiology Date/Time Source Procedure Growth Status 03/13/18 11:25 Blood Line Aerobic Blood Culture - Preliminary NO GROWTH IN 3 DAYS Resulted 03/13/18 11:25 Blood Line Anaerobic Blood Culture - Preliminary NO GROWTH IN 3 DAYS Resulted 03/13/18 11:20 Blood Line Aerobic Blood Culture - Preliminary NO GROWTH IN 3 DAYS Resulted 03/13/18 11:20 Blood Line Anaerobic Blood Culture - Preliminary NO GROWTH IN 3 DAYS Resulted IMAGING: Extremity Arterial Study 03/14/18 0000 Signed Impressions: CONCLUSION: 1. Significantly diminished ABIs bilaterally. CT angiography and runoff would be warranted for more definitive assessment. 2. No definite pulse could be identified within the great toe bilaterally. Foot X-Ray 03/13/18 1125 Signed Impressions: CONCLUSION: Fracture of the first distal phalanx. PHYSICAL EXAMINATION: GENERAL: No acute distress. HEENT: The head is atraumatic. Extraocular movements are grossly intact. Pupils reactive to light. No icterus. Oropharynx moist mucosa without lesions. NECK: Supple without swelling or adenopathy. LUNGS: Clear to auscultation. HEART: Regular S1 and S2, without murmurs, rubs or gallops. ABDOMEN: Bowel sounds present. Soft, nontender. EXTREMITIES: Decreasing erythema of both legs. No edema. Purpuric discoloration at the distal aspect of the left great toe. Peeling of skin at the feet. No drainage. NEUROLOGIC: The patient is paraplegic. PSYCHIATRIC: The patient is calm and cooperative. IMPRESSION: Bilateral lower extremity cellulitis. Improving. PVD. RECOMMENDATIONS: Okay to transition to PO Keflex 500mg QID x 10 days and follow up at the [facility]. Discussed with Dr. Licona. I will sign off now. Call if further input is needed. Rahat Le MD Mar 16, 2018 11:19
[2018-03-16 12:00] VITALS: BP 145/78; PULSE 86; RESP 19; TEMP 98.1; O2SAT 93
--- NOTE | 2018-03-16 15:04 | HHI.PR ---
Subjective Remarks She states that he wants to go home. Denies fevers or chills. Pain is better controlled. Denies rash, denies diarrhea. Objective Vitals Vital Signs Date Time Temp Pulse Resp B/P (MAP) Pulse Ox O2 Delivery O2 Flow Rate FiO2 03/16/18 12:00 98.1 86 19 145/78 (100) 93 03/16/18 08:00 98.0 91 18 139/76 (97) 92 03/16/18 07:00 95 Nasal Cannula 3.00 03/16/18 03:56 98.3 88 18 142/77 (98) 95 03/16/18 00:00 98.6 98 17 154/80 (104) 95 03/15/18 20:36 95 Nasal Cannula 3.00 03/15/18 20:00 98.6 100 18 112/78 (89) 97 03/15/18 15:37 97.9 114 18 129/78 (95) 91 I/O 03/15/18 03/15/18 03/15/18 03/16/18 03/16/18 03/16/18 07:00 15:00 23:00 07:00 15:00 23:00 Intake Total 50 ml 50 ml Output Total 1600 ml Balance -1600 ml 50 ml 50 ml Intake IV Total 50 ml 50 ml Output Urine Total 1600 ml Result Diagram: 03/15/18 0910 03/16/18 0557 Imaging Last Impressions Extremity Arterial Study 03/14/18 0000 Signed Impressions: CONCLUSION: 1. Significantly diminished ABIs bilaterally. CT angiography and runoff would be warranted for more definitive assessment. 2. No definite pulse could be identified within the great toe bilaterally. Foot X-Ray 03/13/18 1125 Signed Impressions: CONCLUSION: Fracture of the first distal phalanx. Objective Remarks AAOx3 Clear lungs BL S1S2 RRR, no MRG abdomen soft, nt, nd Swelling with erythema, warmth, tenderness to touch in bilateral extremities - improving A/P Problem List: (1) Bilateral lower leg cellulitis ICD Code: L03.116 - Cellulitis of left lower limb; L03.115 - Cellulitis of right lower limb Status: Acute Plan: The patient admitted to the medical floor. Start an IV vancomycin IV cefazolin. Status post IV vancomycin IV Zosyn in the emergency department. ID consulted. Appreciate recommendations. Discontinue IV vancomycin and continue IV cefazolin. Monitor response to antibiotic therapy. Blood cultures negative to date. Continue pain control with p.o. Toradol and IV morphine sulfate for breakthrough pain. 03/16 continue gabapentin, Toradol and IV morphine for pain control. Discussed case with ID who cleared the patient for discharge on oral Keflex 500 mg p.o. twice daily 10 days. (2) Fracture of left great toe ICD Code: S92.402A - Displaced unspecified fracture of left great toe, initial encounter for closed fracture Status: Acute Plan: Appreciate podiatry recommendations. Discussed the case with Dr Marquis, vascular surgery will be consulted since ALAINA 's abnormal. (3) Hyponatremia ICD Code: E87.1 - Hypo-osmolality and hyponatremia Status: Acute Plan: Sodium seems to be improving. Up to 130. Discontinue IV normal saline. Monitor BMP 03/15 Sodium trending down. Patient with negative fluid balance - likely hypovolemic hyponatremia. Start normal saline 03/16 continue IV normal saline, sodium slowly improving. (4) Hypokalemia ICD Code: E87.6 - Hypokalemia Status: Acute Plan: Potassium still low at 3.1. Replace orally and continue to monitor BMP. (5) Hypocalcemia ICD Code: E83.51 - Hypocalcemia Status: Acute Plan: sp replacement with IV calcium chloride. Calcium within normal ramge. Monitor calcium levels. Assessment and Plan DVT prophylaxis: Lovenox subcutaneously. Discharge Planning Continue to monitor and the medical floor. Pending vascular surgery consultation, podiatry and ID. Problem Qualifiers (1) Fracture of left great toe: Qualified Codes: S92.425A - Nondisplaced fracture of distal phalanx of left great toe, initial encounter for closed fracture Jamshid Reynoso MD Mar 16, 2018 15:04
[2018-03-16] MEDS: ENOXAPARIN SODIUM 40 MG/0.4 ML SYRINGE SQ SCH (15:28)
[2018-03-16 16:00] VITALS: BP 141/78; PULSE 71; RESP 19; TEMP 98.1; O2SAT 92
--- NOTE | 2018-03-16 18:23 | PD.CAR.PN ---
CVT Progress Note Subjective/Hospital Course: Patient seen and examined Full consult dictated CTA and carotid ultrasound ordered Patient has bilateral severe peripheral vascular disease based on clinical findings and should stay in the hospital to this is resolved Patient wanted to go home and sign out AMA but it would be quite unwise in this situation We will follow Thanks J Objective: Vital Signs Date Time Temp Pulse Resp B/P (MAP) Pulse Ox O2 Delivery O2 Flow Rate FiO2 03/16/18 16:00 98.1 71 19 141/78 (99) 92 03/16/18 15:19 3.00 03/16/18 12:00 98.1 86 19 145/78 (100) 93 03/16/18 08:00 98.0 91 18 139/76 (97) 92 03/16/18 07:00 95 Nasal Cannula 3.00 03/16/18 03:56 98.3 88 18 142/77 (98) 95 03/16/18 00:00 98.6 98 17 154/80 (104) 95 03/15/18 20:36 95 Nasal Cannula 3.00 03/15/18 20:00 98.6 100 18 112/78 (89) 97 Result Diagram: 03/15/18 0910 03/16/18 0557 Bertram Luciano MD Mar 16, 2018 18:23
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
[2018-03-16 20:00] VITALS: BP 110/60; PULSE 96; RESP 18; TEMP 97.9; O2SAT 96
[2018-03-17] MEDS: KETOROLAC TROMETHAMINE 10 MG TAB PO PRN ×4 (00:40→23:34)
[2018-03-17 00:56] VITALS: BP 130/76; PULSE 93; RESP 18; TEMP 98; O2SAT 96
[2018-03-17] MEDS: MORPHINE SULFATE 4 MG/ML INJ IV PUSH PRN ×5 (01:56→21:54)
[2018-03-17] MEDS: NS + KCL 20 MEQ INJ 1,000 ML IV SCH ×3 (01:56→21:56)
[2018-03-17 04:57] VITALS: BP 152/82; PULSE 92; RESP 18; TEMP 98.1; O2SAT 93
[2018-03-17] MEDS: ceFAZolin 2 GM PREMIX 50 ML IV SCH ×3 (05:56→21:54)
[2018-03-17 07:37] VITALS: BP 146/76; PULSE 102; RESP 19; TEMP 98.4; O2SAT 92
[2018-03-17] MEDS: GABAPENTIN 300 MG CAP PO SCH ×3 (08:42→17:22)
[2018-03-17] MEDS: DOCUSATE SODIUM 50 MG/SENNA 8.6 MG TAB PO SCH ×2 (08:42→21:54)
[2018-03-17] MEDS: SODIUM CHLORIDE 0.9% FLUSH 10 ML FLUSH IV FLUSH SCH ×2 (08:43→21:54)
[2018-03-17 10:27] LABS: BICARBONATE 26.8 MEQ/L (21.0-32.0); CALCIUM 7.7 MG/DL (8.5-10.1); CREATININE 0.45 MG/DL (0.60-1.30); MAGNESIUM 1.6 MG/DL (1.5-2.5); PHOSPHORUS 2.5 MG/DL (2.5-4.9)
[2018-03-17] MEDS ORDERED: IOHEXOL 350 MG/ML 10 ML VIAL (for RAD DIAG) IVCONTRAST ONE (10:58)
--- NOTE | 2018-03-17 11:41 | RADRPT ---
EXAM DATE: 03/17/2018 11:38 AM EDT AGE/SEX: 68 years / Male INDICATIONS: Right Bruit. CLINICAL DATA: This is the patient's initial encounter. Patient reports that signs and symptoms have been present for 1 day and indicates a pain score of 1/10. MEDICAL/SURGICAL HISTORY: Chronic obstructive pulmonary disease. Hypercholesterolemia. Cardio vascular disease. PVD. Paraplegia. . Left ankle surgery. COMPARISON: No prior exams available for comparison. VELOCITY PARAMETERS: ICA/CCA Ratio: Right 1.3 , Left 1.4 ICA: Right 106.4 cm/sec, Left 102.2 cm/sec CCA: Right 82.7 cm/sec, Left 72.6 cm/sec ECA: Right 76.3 cm/sec, Left 76.5 cm/sec Vertebral: Right UTO cm/sec absent, Left 41.7 cm/sec antegrade FINDINGS: RIGHT CAROTID: There is no evidence for a hemodynamically significant carotid stenosis. Minimal int imal hyperplasia is present with scattered calcific plaque. LEFT CAROTID: There is no evidence for a hemodynamically significant carotid stenosis. Minimal inti mal hyperplasia is present with scattered calcific plaque. Flow is antegrade in left vertebral artery. Right vertebral artery not visualized There are no ancillary masses or adenopathy. CONCLUSION: Negative examination for a hemodynamically significant carotid stenosis. Right vertebral artery not visualized Dhruv Zacarias MD FACR Electronically signed by: Dhruv Zacarias MD 03/17/2018 11:39 AM EDT
--- NOTE | 2018-03-17 12:05 | RADRPT ---
EXAM DATE: 03/17/2018 11:34 AM EDT AGE/SEX: 68 years / Male INDICATIONS: Severe peripheral vascular disease CLINICAL DATA: This is the patient's initial encounter. Patient reports that signs and symptoms have been present for 1 day and indicates a pain score of 3/10. MEDICAL/SURGICAL HISTORY: Chronic obstructive pulmonary disease. nerve damage in legs . RADIATION DOSE: 3.75 CTDI (mGy) COMPARISON: No prior exams available for comparison. TECHNIQUE: Volumetric scanning was performed using a multi-row detector CT scanner during bolus infu dustin of 97 ml Omnipaque 350 (iohexol) nonionic water-soluble contrast as a single exam dose. The d fuad was post processed with a variety of visualization algorithms including full volume maximum inten sity projection, multi-planar sliding thin slab reformation, curved planar reformation, and surface r endering techniques. Using automated exposure control and adjustment of the mA and/or kV according t o patient size, radiation dose was kept as low as reasonably achievable to obtain optimal diagnostic quality images. FINDINGS: AORTA: Diffuse calcified atheromatous plaque throughout the aorta and inflow vessels. No aneurysmal c hange or significant stenosis involving the aorta. A 40% stenosis is seen involving the right common iliac artery origin due to eccentric calcified plaque. The right inflow is calcified but otherwise pa tent. Left inflow is diffusely calcified but patent. Both internal iliac arteries are stenotic at the ir origins. A high-grade stenosis is seen involving the celiac origin. A 50% stenosis involving the S MA origin. Moderate stenoses involving the renal artery origins bilaterally. Approximately 50% on the right and 30-40% on the left. RIGHT LOWER EXTREMITY: Eccentric calcified plaque involving the common femoral artery generates a 30% stenosis. There is a 50% stenosis involving the origin of the profunda femoris. The SFA is occluded throughout its entirety. There is reconstitution of the popliteal artery essentially at the level of the knee joint. The below-knee popliteal artery is patent. The posterior tibial artery is chronically occluded. The anterior tibial artery and peroneal artery show diffuse atherosclerotic disease with m ultiple areas of moderate luminal narrowing scattered throughout their entirety. Dorsalis pedis arter y is formed and patent. There is reconstitution of a very small plantar vessels. LEFT LOWER EXTREMITY: Eccentric calcified plaque involving the common femoral artery generates a 30% stenosis. Profunda femoris origin is patent. The [place] SFA is occluded throughout its entirety. The re is reconstitution of the popliteal artery at the level of the knee joint. The below-knee popliteal artery is patent. The posterior tibial artery is chronically occluded. The peroneal artery and anter ior tibial artery are significantly diseased. The anterior tibial artery has short segment occlusions throughout. Peroneal artery shows numerous moderate stenoses throughout. A dorsalis pedis artery is patent. A small reconstituted plantar vessel is seen. OTHER STRUCTURES: Emphysematous changes within the visualized lung bases. Coronary artery atheroscle rotic calcifications. Scattered colonic diverticuli without acute inflammation. Spinal stimulator pac k overlies left hip posteriorly. CONCLUSION: 1. 40% stenosis involving the right common iliac artery origin. Inflow is calcified but otherwise pa tent. 2. 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 Reconstitution of the popliteal a t the medial joint. Posterior tibial artery is occluded. Diseased anterior tibial artery and peroneal artery are present. 3. Left lower extremity with chronic occlusion of the entire SFA. Reconstitution of the popliteal at the medial joint. Posterior tibial artery is occluded. Diseased anterior tibial artery and peroneal artery are present. Electronically signed by: Sheng Mora MD 03/17/2018 12:04 PM EDT
[2018-03-17 12:11] VITALS: BP 176/94; PULSE 107; RESP 20; TEMP 98.3; O2SAT 93
--- NOTE | 2018-03-17 13:28 | HHI.PR ---
Subjective Remarks Pain controlled Denies fevers or chills Denies cp/sob sodium trending up. Objective Vitals Vital Signs Date Time Temp Pulse Resp B/P (MAP) Pulse Ox O2 Delivery O2 Flow Rate FiO2 03/17/18 12:11 98.3 107 20 176/94 (121) 93 03/17/18 07:37 98.4 102 19 146/76 (99) 92 03/17/18 04:57 98.1 92 18 152/82 (105) 93 03/17/18 00:56 98.0 93 18 130/76 (94) 96 03/16/18 20:45 Nasal Cannula 3.00 03/16/18 20:00 97.9 96 18 110/60 (77) 96 03/16/18 16:00 98.1 71 19 141/78 (99) 92 03/16/18 15:19 3.00 I/O 03/16/18 03/16/18 03/16/18 03/17/18 03/17/18 03/17/18 07:00 15:00 23:00 07:00 15:00 23:00 Intake Total 530 ml 1322 ml Output Total 850 ml 800 ml 1850 ml 200 ml Balance -320 ml 522 ml -1850 ml -200 ml Intake Oral 480 ml IV Total 50 ml 1322 ml Output Urine Total 850 ml 800 ml 1850 ml 200 ml # Bowel Movements 0 Result Diagram: 03/15/18 0910 03/17/18 0832 Imaging Last Impressions Carotid Artery Ultrasound 03/17/18 0000 Signed Impressions: CONCLUSION: Negative examination for a hemodynamically significant carotid rayna nosis. Right vertebral artery not visualized Dhruv Zacarias MD FACR Aorta w/Runoff CTA 03/17/18 0000 Signed Impressions: CONCLUSION: 1. 40% stenosis involving the right common iliac artery origin. Inflow is calc ified but otherwise patent. 2. 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 Reconstitut ion of the popliteal at the medial joint. Posterior tibial artery is occluded. Diseased anterior tibial artery and peroneal artery are present. 3. Left lower extremity with chronic occlusion of the entire SFA. Reconstituti on of the popliteal at the medial joint. Posterior tibial artery is occluded. D iseased anterior tibial artery and peroneal artery are present. Extremity Arterial Study 03/14/18 0000 Signed Impressions: CONCLUSION: 1. Significantly diminished ABIs bilaterally. CT angiography and runoff would be warranted for more definitive assessment. 2. No definite pulse could be identified within the great toe bilaterally. Foot X-Ray 03/13/18 1125 Signed Impressions: CONCLUSION: Fracture of the first distal phalanx. Objective Remarks AAOx3 Clear lungs BL S1S2 RRR, no MRG abdomen soft, nt, nd Swelling with erythema, warmth, tenderness to touch in bilateral extremities - improving A/P Problem List: (1) Bilateral lower leg cellulitis ICD Code: L03.116 - Cellulitis of left lower limb; L03.115 - Cellulitis of right lower limb Status: Acute Plan: The patient admitted to the medical floor. Start an IV vancomycin IV cefazolin. Status post IV vancomycin IV Zosyn in the emergency department. ID consulted. Appreciate recommendations. Discontinue IV vancomycin and continue IV cefazolin. Monitor response to antibiotic therapy. Blood cultures negative to date. Continue pain control with p.o. Toradol and IV morphine sulfate for breakthrough pain. 03/16 continue gabapentin, Toradol and IV morphine for pain control. Discussed case with ID who cleared the patient for discharge on oral Keflex 500 mg p.o. twice daily 10 days. (2) Fracture of left great toe ICD Code: S92.402A - Displaced unspecified fracture of left great toe, initial encounter for closed fracture Status: Acute Plan: Appreciate podiatry recommendations. Discussed the case with Dr Marquis, vascular surgery will be consulted since ALAINA 's abnormal. 03/17 appreciate vascular surgery recommendation Carotid ultrasound negative. Aorta with runoff as described above. Fu CV surgery recommendations. (3) Hyponatremia ICD Code: E87.1 - Hypo-osmolality and hyponatremia Status: Acute Plan: Sodium seems to be improving. Up to 130. Discontinue IV normal saline. Monitor BMP 03/15 Sodium trending down. Patient with negative fluid balance - likely hypovolemic hyponatremia. Start normal saline 03/17 continue IV normal saline, sodium slowly improving. (4) Hypokalemia ICD Code: E87.6 - Hypokalemia Status: Acute Plan: Potassium still low at 3.1. Replace orally and continue to monitor BMP. 03/17 Resolved. Continue to monitor BMP and replace as needed. (5) Hypocalcemia ICD Code: E83.51 - Hypocalcemia Status: Acute Plan: sp replacement with IV calcium chloride. Calcium within normal range. Monitor calcium levels. Assessment and Plan DVT prophylaxis: Lovenox subcutaneously. Discharge Planning Continue to monitor and the medical floor. Pending vascular surgery consultation, podiatry and ID. Problem Qualifiers (1) Fracture of left great toe: Qualified Codes: S92.425A - Nondisplaced fracture of distal phalanx of left great toe, initial encounter for closed fracture Jamshid Reynoso MD Mar 17, 2018 13:28
[2018-03-17 14:46] LABS: HEMATOCRIT 41.2 % (39.0-51.0); MEAN CELL VOLUME 92.7 FL (80.0-100.0); MEAN CORPUSCULAR HEMOGLOBIN 31.5 PG (27.0-34.0); MEAN PLATELET VOLUME 7.4 FL (7.0-11.0); PLATELET COUNT 300 TH/MM3 (150-450); RED BLOOD COUNT 4.45 MIL/MM3 (4.50-5.90); RED CELL DISTRIBUTION WIDTH 17.5 % (11.6-17.2); WHITE BLOOD COUNT 8.6 TH/MM3 (4.0-11.0)
[2018-03-17] MEDS: ENOXAPARIN SODIUM 40 MG/0.4 ML SYRINGE SQ SCH (15:26)
[2018-03-17 15:49] VITALS: BP 121/66; PULSE 106; RESP 20; TEMP 98.4; O2SAT 96
--- NOTE | 2018-03-17 19:22 | PD.CAR.PN ---
CVT Progress Note Subjective/Hospital Course: Patient seen and examined Full consult dictated CTA and carotid ultrasound ordered Patient has bilateral severe peripheral vascular disease based on clinical findings and should stay in the hospital to this is resolved Patient wanted to go home and sign out AMA but it would be quite unwise in this situation We will follow Thanks J 03/17/2018 Consistent with clinical examination CTA with a runoff confirms the finding of severe peripheral vascular disease. Patient has calcified aorta and some aortoiliac disease with perhaps 40% stenosis of the right common iliac artery while on the left side looks little better The right 40% stenosis is not hemodynamically significant so inflow is not terribly impaired Coming to the groin patient has arterial sclerotic changes in both common femoral arteries and and occlusion of both SFAs with reconstitution of popliteal arteries Below the level of the trifurcation patient has severe vascular disease with multilevel occlusions of all 3 vessels but eventual flow to the foot At this point the only remaining option is the left femoral-popliteal bypass followed by the right. There is nothing to do below the level of the knee for vessels are multilevel interrupted with collateral flow so there is no endovascular open procedure to remedy this If patient has no procedure done he will for sure lose the left leg in the next few weeks. At this point patient refuses surgery wants to go home to see his doggie and spent some time with him I can see his point no matter how medically ill advised. Therefore I am willing to bring patient in next week and do surgery on him if he is willing to come in Objective: Vital Signs Date Time Temp Pulse Resp B/P (MAP) Pulse Ox O2 Delivery O2 Flow Rate FiO2 03/17/18 15:49 98.4 106 20 121/66 (84) 96 03/17/18 12:11 98.3 107 20 176/94 (121) 93 03/17/18 07:37 98.4 102 19 146/76 (99) 92 03/17/18 04:57 98.1 92 18 152/82 (105) 93 03/17/18 00:56 98.0 93 18 130/76 (94) 96 03/16/18 20:45 Nasal Cannula 3.00 03/16/18 20:00 97.9 96 18 110/60 (77) 96 Labs: Laboratory Tests Test 03/17/18 08:32 03/17/18 14:20 Blood Urea Nitrogen 2 MG/DL (7-18) Creatinine 0.45 MG/DL (0.60-1.30) Random Glucose 91 MG/DL (74-106) Calcium Level 7.7 MG/DL (8.5-10.1) Phosphorus Level 2.5 MG/DL (2.5-4.9) Magnesium Level 1.6 MG/DL (1.5-2.5) Sodium Level 130 MEQ/L (136-145) Potassium Level 4.2 MEQ/L (3.5-5.1) Chloride Level 96 MEQ/L (98-107) Carbon Dioxide Level 26.8 MEQ/L (21.0-32.0) Anion Gap 7 MEQ/L (5-15) Estimat Glomerular Filtration Rate 188 ML/MIN (>89) White Blood Count 8.6 TH/MM3 (4.0-11.0) Red Blood Count 4.45 MIL/MM3 (4.50-5.90) Hemoglobin 14.0 GM/DL (13.0-17.0) Hematocrit 41.2 % (39.0-51.0) Mean Corpuscular Volume 92.7 FL (80.0-100.0) Mean Corpuscular Hemoglobin 31.5 PG (27.0-34.0) Mean Corpuscular Hemoglobin Concent 34.0 % (32.0-36.0) Red Cell Distribution Width 17.5 % (11.6-17.2) Platelet Count 300 TH/MM3 (150-450) Mean Platelet Volume 7.4 FL (7.0-11.0) Result Diagram: 03/17/18 1420 03/17/18 0832 Bertram Luciano MD Mar 17, 2018 19:22
[2018-03-17 19:55] VITALS: BP 130/65; PULSE 104; RESP 20; TEMP 97.7; O2SAT 93
[2018-03-18 00:21] VITALS: BP 135/73; PULSE 99; RESP 20; TEMP 97.1; O2SAT 96
[2018-03-18] MEDS: ceFAZolin 2 GM PREMIX 50 ML IV SCH ×2 (04:42→12:05)
[2018-03-18 04:46] VITALS: BP 149/86; PULSE 67; RESP 20; TEMP 97.6; O2SAT 96
[2018-03-18] MEDS: KETOROLAC TROMETHAMINE 10 MG TAB PO PRN (05:59)
[2018-03-18] MEDS: MORPHINE SULFATE 4 MG/ML INJ IV PUSH PRN ×2 (06:54→11:34)
[2018-03-18] MEDS: SODIUM CHLORIDE 0.9% FLUSH 10 ML FLUSH IV FLUSH SCH (07:08)
[2018-03-18] MEDS: NS + KCL 20 MEQ INJ 1,000 ML IV SCH (07:21)
[2018-03-18] MEDS: DOCUSATE SODIUM 50 MG/SENNA 8.6 MG TAB PO SCH (07:21)
[2018-03-18] MEDS: GABAPENTIN 300 MG CAP PO SCH ×2 (07:22→12:05)
[2018-03-18 08:00] VITALS: BP 153/88; PULSE 97; RESP 18; TEMP 98.2; O2SAT 94
--- NOTE | 2018-03-18 10:51 | PD.POD ---
Subjective Podiatric Problems Left hallux fracture with progressing ischemia. Pt states he is still having pain, but wants to leave today to care for his dog. He has spoken with and they have agreed on an outpt procedure. He is aware that prolonging his vascular surgery will increase the risk of possible amputation in the future. He denies any n/v/f/h/c/s/ob. Pain score: 5 Past Med/Surg/Social History Social History Smoking Status: Current Every Day Smoker Objective Vital Signs Vital Signs Date Time Temp Pulse Resp B/P (MAP) Pulse Ox O2 Delivery O2 Flow Rate FiO2 03/18/18 08:07 94 Nasal Cannula 3.00 03/18/18 08:00 98.2 97 18 153/88 (109) 94 03/18/18 04:46 97.6 67 20 149/86 (107) 96 03/18/18 00:21 97.1 99 20 135/73 (93) 96 03/17/18 19:55 97.7 104 20 130/65 (86) 93 03/17/18 19:14 Room Air 03/17/18 15:49 98.4 106 20 121/66 (84) 96 03/17/18 12:11 98.3 107 20 176/94 (121) 93 Coded Allergies: No Known Allergies (Unverified , 03/13/18) Exam-Podiatry Remarks Left hallux with splotchy areas of ischemia, borderline dry gangrene, + edema, + mild erythema. +pain Assessment & Plan A/P 1) left hallux fx with vascular impairment -pt is persistent about d/c today despite increased risk -f/u with outpt Tuesday -f/u with outpt in 3-5 days -outpt abx as pre ID recs -no home health care needed Wendi Reich DPM Mar 18, 2018 10:51
--- NOTE | 2018-03-18 11:36 | HHI.PR ---
Subjective Remarks Follow-up bilateral lower extremity cellulitis/left hallux fracture with vascular impairment/severe peripheral arterial disease March 18, 2018-patient seen and examined, patient is very adamant about leaving hospital today. Denies any significant lower stomach complaints although is requesting narcotics to be written prior to discharge. States he will follow with vascular surgery upon discharge. Objective Vitals Vital Signs Date Time Temp Pulse Resp B/P (MAP) Pulse Ox O2 Delivery O2 Flow Rate FiO2 03/18/18 08:07 94 Nasal Cannula 3.00 03/18/18 08:00 98.2 97 18 153/88 (109) 94 03/18/18 04:46 97.6 67 20 149/86 (107) 96 03/18/18 00:21 97.1 99 20 135/73 (93) 96 03/17/18 19:55 97.7 104 20 130/65 (86) 93 03/17/18 19:14 Room Air 03/17/18 15:49 98.4 106 20 121/66 (84) 96 03/17/18 12:11 98.3 107 20 176/94 (121) 93 I/O 03/17/18 03/17/18 03/17/18 03/18/18 03/18/18 03/18/18 07:00 15:00 23:00 07:00 15:00 23:00 Intake Total 50 ml 470 ml 50 ml Output Total 1850 ml 200 ml 1200 ml 700 ml Balance -1850 ml -150 ml -730 ml -650 ml IV Total 50 ml 470 ml 50 ml Output Urine Total 1850 ml 200 ml 1200 ml 700 ml Result Diagram: 03/17/18 1420 03/17/18 0832 Imaging Last Impressions Carotid Artery Ultrasound 03/17/18 0000 Signed Impressions: CONCLUSION: Negative examination for a hemodynamically significant carotid rayna nosis. Right vertebral artery not visualized Dhruv Zacarias MD FACR Aorta w/Runoff CTA 03/17/18 0000 Signed Impressions: CONCLUSION: 1. 40% stenosis involving the right common iliac artery origin. Inflow is calc ified but otherwise patent. 2. 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 Reconstitut ion of the popliteal at the medial joint. Posterior tibial artery is occluded. Diseased anterior tibial artery and peroneal artery are present. 3. Left lower extremity with chronic occlusion of the entire SFA. Reconstituti on of the popliteal at the medial joint. Posterior tibial artery is occluded. D iseased anterior tibial artery and peroneal artery are present. Extremity Arterial Study 03/14/18 0000 Signed Impressions: CONCLUSION: 1. Significantly diminished ABIs bilaterally. CT angiography and runoff would be warranted for more definitive assessment. 2. No definite pulse could be identified within the great toe bilaterally. Foot X-Ray 03/13/18 1125 Signed Impressions: CONCLUSION: Fracture of the first distal phalanx. Objective Remarks GENERAL: NAD SKIN: Warm and dry. HEAD: Normocephalic. EYES: No scleral icterus. No injection or drainage. NECK: Supple, trachea midline. No JVD or lymphadenopathy. CARDIOVASCULAR: Regular rate and rhythm without murmurs, gallops, or rubs. RESPIRATORY: Breath sounds equal bilaterally. No accessory muscle use. GASTROINTESTINAL: Abdomen soft, non-tender, nondistended. MUSCULOSKELETAL: No cyanosis, or edema. BACK: Nontender without obvious deformity. No CVA tenderness. A/P Problem List: (1) Bilateral lower leg cellulitis ICD Code: L03.116 - Cellulitis of left lower limb; L03.115 - Cellulitis of right lower limb Status: Acute (2) Fracture of left great toe ICD Code: S92.402A - Displaced unspecified fracture of left great toe, initial encounter for closed fracture Status: Acute (3) Hyponatremia ICD Code: E87.1 - Hypo-osmolality and hyponatremia Status: Acute (4) Hypokalemia ICD Code: E87.6 - Hypokalemia Status: Acute (5) Hypocalcemia ICD Code: E83.51 - Hypocalcemia Status: Acute Assessment and Plan 68-year-old man with Bilateral lower extremity cellulitis Currently on Ancef IV, will discharge home on Keflex 500 mg 4 times daily 10 days per ID Left hallux fracture with vascular impairment Patient's seen by podiatry, will follow outpatient in 3-5 days Severe bilateral peripheral vascular disease Patient seen by vascular surgery however patient is adamant about leaving the hospital. He will follow outpatient with Dr. Chavarria, who plan for femoropopliteal of the left follow by the right Hyponatremia Improving with IV fluid Will discharge home on salt tablet 2 days Hypokalemia Resolved status post replacement Problem Qualifiers (1) Fracture of left great toe: Qualified Codes: S92.425A - Nondisplaced fracture of distal phalanx of left great toe, initial encounter for closed fracture Rory Allan MD Mar 18, 2018 11:36
[2018-03-18] MEDS ORDERED: HYDR-3288 PO (11:44)
[2018-03-18] MEDS ORDERED: CEPH-460 PO (11:44)
[2018-03-18] MEDS ORDERED: LACTCHW3 CHEW (11:44)
[2018-03-18] MEDS ORDERED: KETO10 PO (11:44)
--- NOTE | 2018-03-18 11:49 | HHI.DS ---
Discharge Summary Admission Date Mar 13, 2018 at 13:21 Discharge Date: Mar 18, 2018 Admitting Diagnosis BLE cellulitis, hyponatremia, left great toe fracture (1) Bilateral lower leg cellulitis ICD Code: L03.116 - Cellulitis of left lower limb; L03.115 - Cellulitis of right lower limb Status: Acute (2) Fracture of left great toe ICD Code: S92.402A - Displaced unspecified fracture of left great toe, initial encounter for closed fracture Status: Acute (3) Hyponatremia ICD Code: E87.1 - Hypo-osmolality and hyponatremia Status: Acute (4) Hypokalemia ICD Code: E87.6 - Hypokalemia Status: Acute (5) Hypocalcemia ICD Code: E83.51 - Hypocalcemia Status: Acute Procedures None Brief History - From Admission This is a 68-year-old male very poor historian who presented to [facility] complaining of redness and pain of bilateral extremities. The patient states that he has had redness which started approximately 10 days ago. The patient was seen at the [facility] and prescribed an unknown antibiotic for the last 10 days. The patient states that despite taking the antibiotic the redness over the legs and increased pain continue to spread. Patient denies any fevers, chills, nausea, vomiting. The patient states that he recently ran his foot into the wall while using his wheelchair. Complains of 6/10 pain in bilateral toes left greater than right. No alleviating factors reported other than medications given in the ED. CBC/BMP: 03/17/18 1420 03/17/18 0832 Significant Findings Laboratory Tests Test 03/16/18 05:57 03/17/18 08:32 03/17/18 14:20 Blood Urea Nitrogen 2 MG/DL (7-18) 2 MG/DL (7-18) Creatinine 0.46 MG/DL (0.60-1.30) 0.45 MG/DL (0.60-1.30) Calcium Level 7.6 MG/DL (8.5-10.1) 7.7 MG/DL (8.5-10.1) Sodium Level 129 MEQ/L (136-145) 130 MEQ/L (136-145) Potassium Level 3.1 MEQ/L (3.5-5.1) Chloride Level 92 MEQ/L (98-107) 96 MEQ/L (98-107) Red Blood Count 4.45 MIL/MM3 (4.50-5.90) Red Cell Distribution Width 17.5 % (11.6-17.2) Imaging Last Impressions Carotid Artery Ultrasound 03/17/18 0000 Signed Impressions: CONCLUSION: Negative examination for a hemodynamically significant carotid rayna nosis. Right vertebral artery not visualized Dhruv Zacarias MD FACR Aorta w/Runoff CTA 03/17/18 0000 Signed Impressions: CONCLUSION: 1. 40% stenosis involving the right common iliac artery origin. Inflow is calc ified but otherwise patent. 2. 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 Reconstitut ion of the popliteal at the medial joint. Posterior tibial artery is occluded. Diseased anterior tibial artery and peroneal artery are present. 3. Left lower extremity with chronic occlusion of the entire SFA. Reconstituti on of the popliteal at the medial joint. Posterior tibial artery is occluded. D iseased anterior tibial artery and peroneal artery are present. Extremity Arterial Study 03/14/18 0000 Signed Impressions: CONCLUSION: 1. Significantly diminished ABIs bilaterally. CT angiography and runoff would be warranted for more definitive assessment. 2. No definite pulse could be identified within the great toe bilaterally. Foot X-Ray 03/13/18 1125 Signed Impressions: CONCLUSION: Fracture of the first distal phalanx. PE at Discharge GENERAL: NAD SKIN: Warm and dry. HEAD: Normocephalic. EYES: No scleral icterus. No injection or drainage. NECK: Supple, trachea midline. No JVD or lymphadenopathy. CARDIOVASCULAR: Regular rate and rhythm without murmurs, gallops, or rubs. RESPIRATORY: Breath sounds equal bilaterally. No accessory muscle use. GASTROINTESTINAL: Abdomen soft, non-tender, nondistended. MUSCULOSKELETAL: No cyanosis, or edema. BACK: Nontender without obvious deformity. No CVA tenderness. Hospital Course Patient admitted securing to bilateral lower extremity cellulitis for which I was consulted and patient started on IV antibiotic with monitoring of culture. Secondary to severe peripheral vascular disease diagnosed by CTA runoff, vascular surgery was consulted for evaluation for possible femoropopliteal however patient's was adamant about leaving the hospital and state he will follow outpatient with Dr. Chavarria. Podiatry was consulted due to left hallux fracture with vascular impairments, again patient's was adamant that he would only follow outpatient. All electrolyte abnormalities were corrected accordingly. Patient will be discharged home on Keflex 500 4 times daily 10 days. Pt Condition on Discharge: Fair Discharge Disposition: Discharge Home Discharge Time: > 30 minutes Discharge Instructions DIET: Follow Instructions for: Heart Healthy Diet Activities you can perform: Regular-No Restrictions Follow up Referrals: PCP Follow-up - 1 Week Podiatry - 3-5 Days Vascular Surgery - 3-5 Days New Medications: Cephalexin (Keflex) 500 Mg Capsule 500 MG PO QID for Infection, #40 CAP 0 Refills Hydrocodone-Acetaminophen (Colmar) 7.5-325 mg Tab 1 TAB PO Q6H PRN for PAIN, #15 TAB 0 Refills Lactobacillus Acidophilus (Lactinex) 1 Chew 1 TAB CHEW BID for Nutritional Supplement, #20 TAB 0 Refills Ketorolac (Ketorolac) 10 Mg Tab 10 MG PO Q6H PRN for PAIN 1 TO 10 AND/OR AGITATION, #20 TAB Continued Medications: Gabapentin (Gabapentin) 800 Mg Tab 800 MG PO QID, #90 TAB 0 Refills Rory Allan MD Mar 18, 2018 11:49
--- NOTE | 2018-03-18 12:14 | PD.CAR.PN ---
CVT Progress Note Subjective/Hospital Course: Patient seen and examined Full consult dictated CTA and carotid ultrasound ordered Patient has bilateral severe peripheral vascular disease based on clinical findings and should stay in the hospital to this is resolved Patient wanted to go home and sign out AMA but it would be quite unwise in this situation We will follow Thanks J 03/17/2018 Consistent with clinical examination CTA with a runoff confirms the finding of severe peripheral vascular disease. Patient has calcified aorta and some aortoiliac disease with perhaps 40% stenosis of the right common iliac artery while on the left side looks little better The right 40% stenosis is not hemodynamically significant so inflow is not terribly impaired Coming to the groin patient has arterial sclerotic changes in both common femoral arteries and and occlusion of both SFAs with reconstitution of popliteal arteries Below the level of the trifurcation patient has severe vascular disease with multilevel occlusions of all 3 vessels but eventual flow to the foot At this point the only remaining option is the left femoral-popliteal bypass followed by the right. There is nothing to do below the level of the knee for vessels are multilevel interrupted with collateral flow so there is no endovascular open procedure to remedy this If patient has no procedure done he will for sure lose the left leg in the next few weeks. At this point patient refuses surgery wants to go home to see his doggie and spent some time with him I can see his point no matter how medically ill advised. Therefore I am willing to bring patient in next week and do surgery on him if he is willing to come in 03/18/2018 Patient with bilateral SFA occlusions and severe ischemia over the both legs Patient will lose both legs if it does not have vascular construction and even in face of vascular construction he may progress to the same Patient is adamant to go home so I guess I will have to bring him in electively to do the surgery next week If patient stayed in the hospital he could have had surgery Tuesday Objective: Vital Signs Date Time Temp Pulse Resp B/P (MAP) Pulse Ox O2 Delivery O2 Flow Rate FiO2 03/18/18 08:07 94 Nasal Cannula 3.00 03/18/18 08:00 98.2 97 18 153/88 (109) 94 03/18/18 04:46 97.6 67 20 149/86 (107) 96 03/18/18 00:21 97.1 99 20 135/73 (93) 96 03/17/18 19:55 97.7 104 20 130/65 (86) 93 03/17/18 19:14 Room Air 03/17/18 15:49 98.4 106 20 121/66 (84) 96 Result Diagram: 03/17/18 1420 03/17/18 0832 Bertram Luciano MD Mar 18, 2018 12:14
== END 2018-03-18 12:39 | disposition home or self-care (01) | DRG 603 ==
LOC: NEPE 10:09 → NEDA 13:21 → N05A 17:01
PROVIDERS: ADMIT Hospitalist; ATTEND Hospitalist
PROC: B41DYZZ Fluoroscopy of Aorta and Bilateral Lower Extremity Arteries using Other Contrast (ICD-10-PCS; principal; 2018-03-17)
DX: L03.115 Cellulitis of right lower limb (principal); G82.22 Paraplegia, incomplete; J44.9 Chronic obstructive pulmonary disease, unspecified; E87.1 Hypo-osmolality and hyponatremia; S92.425A Nondisplaced fracture of distal phalanx of left great toe, initial encounter for closed fracture; I10 Essential (primary) hypertension; L03.116 Cellulitis of left lower limb; E78.00 Pure hypercholesterolemia, unspecified; I70.0 Atherosclerosis of aorta; I70.203 Unspecified atherosclerosis of native arteries of extremities, bilateral legs; I70.8 Atherosclerosis of other arteries; I35.0 Nonrheumatic aortic (valve) stenosis; E87.6 Hypokalemia; E83.51 Hypocalcemia; F17.210 Nicotine dependence, cigarettes, uncomplicated; W22.09XA Striking against other stationary object, initial encounter; Z53.29 Procedure and treatment not carried out because of patient's decision for other reasons; Z79.01 Long term (current) use of anticoagulants
CPT/HCPCS: 73630; 75635; 80048; 80053; 82948; 83735; 84100; 85025; 85027; 85610; 87040; 93880; 93922; 96365; 96368; J0690; J1650; J1940; J2270; J2543; J3370; J3480; J7030; J7050; Q9967

== ENCOUNTER 2018-03-23 07:13 | Inpatient (IN) | payer MEDICARE, OTHER ==
[~2018-03-23] VITALS: Ht 170.2 cm; Wt 77.7 kg
[~2018-03-23 07:13] MED LIST: CEPH-460 PO; GABA800T PO; HYDR-3288 PO; KETO10 PO; LACTCHW3 CHEW
[2018-03-23] MEDS ORDERED: METOPROLOL TARTRATE 25 MG TAB PO PRN (08:00)
[2018-03-23] MEDS ORDERED: POVIDONE IODINE 5% (ANTISEPSIS KIT) 4 APPLICATIONS EACH NARE PRN (08:00)
[2018-03-23] MEDS ORDERED: CHLORHEXIDINE GLUCONATE 2 % 1 PACK (2 CLOTHS) TOPICAL PRN (08:00)
[2018-03-23] MEDS ORDERED: SODIUM CHLORID 0.9% 500 ML IV PRN (08:00)
[2018-03-23] MEDS ORDERED: LACTATED RINGER'S 1000 ML IV PRN (08:00)
[2018-03-23 08:36] LABS: AUTOMATED NEUTROPHIL # 3.6 TH/MM3 (1.8-7.7); BASOPHIL # 0.1 TH/MM3 (0-0.2); BASOPHIL % 1.1 % (0.0-2.0); EOSINOPHIL # 0.1 TH/MM3 (0-0.4); EOSINOPHIL % 2.3 % (0.0-4.0); HEMATOCRIT 37.8 % (39.0-51.0); HEMOGLOBIN 12.8 GM/DL (13.0-17.0); LYMPH % 23.9 % (9.0-44.0); LYMPHOCYTE # 1.5 TH/MM3 (1.0-4.8); MEAN CELL VOLUME 91.8 FL (80.0-100.0); MEAN CORPUSCULAR HEMOGLOBIN 31.2 PG (27.0-34.0); MEAN PLATELET VOLUME 8.2 FL (7.0-11.0); MONO % 15.3 % (0.0-8.0); NEUT % 57.4 % (16.0-70.0); PLATELET COUNT 370 TH/MM3 (150-450); RED BLOOD COUNT 4.12 MIL/MM3 (4.50-5.90); WHITE BLOOD COUNT 6.2 TH/MM3 (4.0-11.0)
[2018-03-23] MEDS ORDERED: COUM1TAB PO (08:41)
[2018-03-23] MEDS ORDERED: ASPI-516 CHEW (08:41)
[2018-03-23] MEDS ORDERED: OMEP10SU PO (08:41)
[2018-03-23 08:44] LABS: PROTHROMBIN TIME - PATIENT 19.9 SEC (9.8-11.6)
[2018-03-23] MEDS ORDERED: PROTAMINE SULFATE 50 MG/5 ML VIAL ONE (08:49)
[2018-03-23] MEDS ORDERED: HEPARIN SODIUM - IV 10,000 UNITS/10 ML VIAL ONE (08:49)
[2018-03-23] MEDS ORDERED: HEPARIN SODIUM - SQ 10,000 UNITS/ML VIAL ONE (08:49)
[2018-03-23] MEDS ORDERED: ceFAZolin 2 GM PREMIX 0 ML ONE (08:49)
[2018-03-23 09:13] LABS: ALBUMIN 2.4 GM/DL (3.4-5.0); ALKALINE PHOSPHATASE 125 U/L (45-117); ALT (GPT) 14 U/L (12-78); AST (GOT) 33 U/L (15-37); BICARBONATE 19.2 MEQ/L (21.0-32.0); BLOOD UREA NITROGEN 12 MG/DL (7-18); CALCIUM 8.5 MG/DL (8.5-10.1); CHLORIDE 88 MEQ/L (98-107); CREATININE 0.66 MG/DL (0.60-1.30); GLOMERULAR FILTRATION RATE 121 ML/MIN (>89); GLUCOSE,RANDOM 85 MG/DL (74-106); TOTAL BILIRUBIN ADULT 0.6 MG/DL (0.2-1.0); TOTAL PROTEIN 6.4 GM/DL (6.4-8.2)
[2018-03-23 09:16] LABS: SODIUM (NA) 120 MEQ/L (136-145)
--- NOTE | 2018-03-23 10:16 | PD.CAR.PN ---
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 Scheduled for the left femoropopliteal bypass today. On preop studies patient has significant hyponatremia with sodium of 1 20 mEq/ L. while mild hyponatremia is not uncommon in hospital patients doing an elective surgery with this level of hyponatremia will be quite unwise and potentially dangerous. Therefore patient needs to be admitted, hyponatremia corrected and patient will be scheduled for surgery once sodium within normal range, likely Tuesday. In addition, patient forgot to stop coumadin as instructed in pre-op phase. INR 2.0. Will wait till INR comes down as well. Discussed with hospitalist nurse practitioner. Patient will be admitted to medicine and I will follow. Objective: Vital Signs Date Time Temp Pulse Resp B/P (MAP) Pulse Ox O2 Delivery O2 Flow Rate FiO2 03/23/18 08:13 98.0 72 18 98/51 (67) 93 Labs: Laboratory Tests Test 03/23/18 08:00 White Blood Count 6.2 TH/MM3 (4.0-11.0) Red Blood Count 4.12 MIL/MM3 (4.50-5.90) Hemoglobin 12.8 GM/DL (13.0-17.0) Hematocrit 37.8 % (39.0-51.0) Mean Corpuscular Volume 91.8 FL (80.0-100.0) Mean Corpuscular Hemoglobin 31.2 PG (27.0-34.0) Mean Corpuscular Hemoglobin Concent 34.0 % (32.0-36.0) Red Cell Distribution Width 17.0 % (11.6-17.2) Platelet Count 370 TH/MM3 (150-450) Mean Platelet Volume 8.2 FL (7.0-11.0) Neutrophils (%) (Auto) 57.4 % (16.0-70.0) Lymphocytes (%) (Auto) 23.9 % (9.0-44.0) Monocytes (%) (Auto) 15.3 % (0.0-8.0) Eosinophils (%) (Auto) 2.3 % (0.0-4.0) Basophils (%) (Auto) 1.1 % (0.0-2.0) Neutrophils # (Auto) 3.6 TH/MM3 (1.8-7.7) Lymphocytes # (Auto) 1.5 TH/MM3 (1.0-4.8) Monocytes # (Auto) 1.0 TH/MM3 (0-0.9) Eosinophils # (Auto) 0.1 TH/MM3 (0-0.4) Basophils # (Auto) 0.1 TH/MM3 (0-0.2) CBC Comment DIFF FINAL Differential Comment Prothrombin Time 19.9 SEC (9.8-11.6) Prothromb Time International Ratio 2.0 RATIO Blood Urea Nitrogen 12 MG/DL (7-18) Creatinine 0.66 MG/DL (0.60-1.30) Random Glucose 85 MG/DL (74-106) Total Protein 6.4 GM/DL (6.4-8.2) Albumin 2.4 GM/DL (3.4-5.0) Calcium Level 8.5 MG/DL (8.5-10.1) Alkaline Phosphatase 125 U/L (45-117) Aspartate Amino Transf (AST/SGOT) 33 U/L (15-37) Alanine Aminotransferase (ALT/SGPT) 14 U/L (12-78) Total Bilirubin 0.6 MG/DL (0.2-1.0) Sodium Level 120 MEQ/L (136-145) Potassium Level 4.3 MEQ/L (3.5-5.1) Chloride Level 88 MEQ/L (98-107) Carbon Dioxide Level 19.2 MEQ/L (21.0-32.0) Anion Gap 13 MEQ/L (5-15) Estimat Glomerular Filtration Rate 121 ML/MIN (>89) Result Diagram: 03/23/18 0800 03/23/18 0800 Bertram Luciano MD Mar 23, 2018 10:16
[2018-03-23] MEDS ORDERED: SODIUM CHLOR 0.9% 1000 ML INJ 1,000 ML IV SCH (10:30)
--- NOTE | 2018-03-23 10:44 | HHI.HP ---
[facility] Admission Diagnosis hyponatremia Diagnoses: (1) Hyponatremia Diagnosis: Principal (2) Peripheral vascular disease Diagnosis: Principal Chief Complaint: ' my sodium is low'. Travel History International Travel<30 Days: No Contact w/Intl Traveler <30 Da: No Traveled to Known Affected Are: No History of Present Illness patient is a 68 y/o male with history of PVD,recently diagnosed and treated for cellulitis of both legs was scheduled for left fem-pop bypass today . however the surgery was cancelled after he was found to have a sodium level of 120. he was just admitted to the hospital for cellulitis of both lower extremities. he was evaluated by ID, podiatry and vascular surgery. he was discharged on po Keflex per ID recommendations. he was found to have PVD with bilateral SFA occlusions. the patient decided to go home at the time. he was brought back for elective surgery today. at the time of my evaluation he was in no distress with no reported headache, nausea, vomiting- has some pain to both legs. Review of Systems Constitutional: DENIES: Fever, Weight loss, Chills, Night Sweats Eyes: DENIES: Blurred vision, Diplopia, Vision loss, Double Vision Ears, nose, mouth, throat: DENIES: Tinnitus, Vertigo, Throat pain, Epistaxis Respiratory: DENIES: Apneas, Cough, Snoring, Wheezing, Hemoptysis, Sputum production, Shortness of breath Cardiovascular: DENIES: Chest pain, Palpitations, Syncope, Dyspnea on Exertion , PND, Lower Extremity Edema, Orthopnea, Claudication Gastrointestinal: DENIES: Abdominal pain, Black stools, Bloody stools, Constipation, Diarrhea, Nausea, Vomiting, Difficulty Swallowing, Anorexia Genitourinary: DENIES: Urinary frequency, Urgency, Hematuria, Dysuria Musculoskeletal: COMPLAINS OF: Joint pain, DENIES: Muscle aches, Stiffness, Joint Swelling Integumentary: DENIES: Rash Neurologic: DENIES: Abnormal gait, Headache, Localized weakness, Paresthesias, Seizures, Speech Problems, Tremor, Poor Balance Psychiatric: DENIES: Anxiety, Confusion, Mood changes, Depression, Hallucinations, Agitation, Suicidal Ideation, Homicidal Ideation, Delusions Past Family Social History Past Medical History CHF?/ dyslipidemia/ PVD- recently treated cellulitis. Past Surgical History foot surgery. Reported Medications aspirin/ coumadin/ lactobacillus Allergies: Coded Allergies: No Known Allergies (Unverified , 03/23/18) Active Ordered Medications Inpatient Medications Chlorhexidine Gluconate (Chlorhexidine 2% Cloth) 3 pack WEIGHER OPERATOR PRN TOPICAL SEE LABEL COMMENTS; Start 03/23/18 at 08:00; Stop 03/26/18 at 07:59 Lactated Ringer's 1,000 ml @ 30 mls/hr Q24H PRN IV SEE LABEL COMMENTS; Start at 08:00; Stop 03/26/18 at 07:59 Metoprolol Tartrate (Lopressor) 25 mg WEIGHER OPERATOR PRN PO SEE LABEL COMMENTS; Start 03/23/18 at 08:00; Stop 03/26/18 at 07:59 Povidone Iodine (Betadine 5% Antisepsis Kit) 1 applic WEIGHER OPERATOR PRN EACH NARE SEE LABEL COMMENTS; Start 03/23/18 at 08:00; Stop 03/26/18 at 07:59 Sodium Chloride 1,000 ml @ 84 mls/hr [id number] IV ; Start 03/23/18 at 10:30; Status UNV Family History not significant. Social History smokes half a pack a day- drinks occasionally. Physical Exam Vital Signs Vital Signs Date Time Temp Pulse Resp B/P (MAP) Pulse Ox O2 Delivery O2 Flow Rate FiO2 03/23/18 08:13 98.0 72 18 98/51 (67) 93 Physical Exam GENERAL: This is a well-nourished, well-developed patient, in no apparent distress. SKIN: erythema of both lower extremities. HEAD: Atraumatic. Normocephalic. No temporal or scalp tenderness. EYES: Pupils equal round and reactive. Extraocular motions intact. No scleral icterus. No injection or drainage. ENT: Nose without bleeding, purulent drainage or septal hematoma. Throat without erythema, tonsillar hypertrophy or exudate. Uvula midline. Airway patent. NECK: Trachea midline. No JVD or lymphadenopathy. Supple, nontender, no meningeal signs. CARDIOVASCULAR: Regular rate and rhythm without murmurs, gallops, or rubs. RESPIRATORY: Clear to auscultation. Breath sounds equal bilaterally. No wheezes , rales, or rhonchi. GASTROINTESTINAL: Abdomen soft, non-tender, nondistended. No hepato-splenomegaly , or palpable masses. No guarding. MUSCULOSKELETAL: gangrene of the left great toe/ redness and warmth over both lower extremities. NEUROLOGICAL: Awake and alert. Cranial nerves II through XII intact. Laboratory Laboratory Tests Test 03/23/18 08:00 White Blood Count 6.2 Red Blood Count 4.12 Hemoglobin 12.8 Hematocrit 37.8 Mean Corpuscular Volume 91.8 Mean Corpuscular Hemoglobin 31.2 Mean Corpuscular Hemoglobin Concent 34.0 Red Cell Distribution Width 17.0 Platelet Count 370 Mean Platelet Volume 8.2 Neutrophils (%) (Auto) 57.4 Lymphocytes (%) (Auto) 23.9 Monocytes (%) (Auto) 15.3 Eosinophils (%) (Auto) 2.3 Basophils (%) (Auto) 1.1 Neutrophils # (Auto) 3.6 Lymphocytes # (Auto) 1.5 Monocytes # (Auto) 1.0 Eosinophils # (Auto) 0.1 Basophils # (Auto) 0.1 CBC Comment DIFF FINAL Differential Comment Prothrombin Time 19.9 Prothromb Time International Ratio 2.0 Blood Urea Nitrogen 12 Creatinine 0.66 Random Glucose 85 Total Protein 6.4 Albumin 2.4 Calcium Level 8.5 Alkaline Phosphatase 125 Aspartate Amino Transf (AST/SGOT) 33 Alanine Aminotransferase (ALT/SGPT) 14 Total Bilirubin 0.6 Sodium Level 120 Potassium Level 4.3 Chloride Level 88 Carbon Dioxide Level 19.2 Anion Gap 13 Estimat Glomerular Filtration Rate 121 Result Diagram: 03/23/18 0800 03/23/18 0800 Caprini VTE Risk Assessment Caprini VTE Risk Assessment: Mod/High Risk (score >= 2) Caprini Risk Assessment Model Point Value = 1 Point Value = 2 Point Value = 3 Point Value = 5 Age 41-60 Minor surgery BMI > 25 kg/m2 Swollen legs Varicose veins or History of unexplained or recurrent spontaneous Oral contraceptives or hormone replacement Sepsis (< 1 month) Serious lung disease, including pneumonia (< 1 month) Abnormal pulmonary function Acute myocardial infarction Congestive heart failure (< 1 month) History of inflammatory bowel disease Medical patient at bed rest Age 61-74 Arthroscopic surgery Major open surgery (> 45 min) Laparoscopic surgery (> 45 min) Malignancy Confined to bed (> 72 hours) Immobilizing plaster cast Central venous access Age >= 75 History of VTE Family history of VTE Factor V Leiden Prothrombin [id number] Lupus anticoagulant Anticardiolipin antibodies Elevated serum homocysteine Heparin-induced thrombocytopenia Other congenital or acquired thrombophilia Stroke (< 1 month) Elective arthroplasty Hip, pelvis, or leg fracture Acute spinal cord injury (< 1 month) Prophylaxis Regimen Total Risk Factor Score Risk Level Prophylaxis Regimen 0-1 Low Early ambulation 2 Moderate Order ONE of the following: *Sequential Compression Device (SCD) *Heparin 5000 units SQ BID 3-4 Higher Order ONE of the following medications: *Heparin 5000 units SQ TID *Enoxaparin/Lovenox 40 mg SQ daily (WT < 150 kg, CrCl > 30 mL/min) *Enoxaparin/Lovenox 30 mg SQ daily (WT < 150 kg, CrCl > 10-29 mL/min) *Enoxaparin/Lovenox 30 mg SQ BID (WT < 150 kg, CrCl > 30 mL/min) AND/OR *Sequential Compression Device (SCD) 5 or more Highest Order ONE of the following medications: *Heparin 5000 units SQ TID (Preferred with Epidurals) *Enoxaparin/Lovenox 40 mg SQ daily (WT < 150 kg, CrCl > 30 mL/min) *Enoxaparin/Lovenox 30 mg SQ daily (WT < 150 kg, CrCl > 10-29 mL/min) *Enoxaparin/Lovenox 30 mg SQ BID (WT < 150 kg, CrCl > 30 mL/min) AND *Sequential Compression Device (SCD) Assessment and Plan Assessment and Plan A/P - Hyponatremia start on NS- check urine/ plasma osmolality and urine sodium- check TSH- will monitor the sodium level closely. -PVD- schedule for left fem-pop bypass surgery- surgery was cancelled today due to hyponatremia; will be rescheduled when the sodium level improves- vascular surgery consulted. hold coumadin for planned surgery. -cellulitis of both lower extremities; evaluated by podiatry and ID recent admission ( recommended Keflex as outpatient) ; will start on Ancef for now- will consult podiatry ( ). -DVT prophylaxis; will start on subq Lovenox when INR < 2. Discussed Condition With the patient and RN. Physician Certification 2 Midnight Certification Type: Admission for Inpatient Services Order for Inpatient Services The services are ordered in accordance with Medicare regulations or non- Medicare payer requirements, as applicable. In the case of services not specified as inpatient-only, they are appropriately provided as inpatient services in accordance with the 2-midnight benchmark. Estimated LOS (days): 5 days is the estimated time the patient will need to remain in the hospital, assuming treatment plan goals are met and no additional complications. Post-Hospital Plan: Not yet determined Mor Prieto MD Mar 23, 2018 10:44
[2018-03-23] MEDS ORDERED: CEPHALEXIN MONOHYDRATE 500 MG CAP PO SCH (12:00)
[2018-03-23 13:00] VITALS: BP 106/51; PULSE 87; RESP 18; TEMP 97.5; O2SAT 93
[2018-03-23] MEDS: GABAPENTIN 400 MG CAP PO SCH ×3 (14:53→21:43)
[2018-03-23] MEDS: ACETAMINOPHEN/HYDROcodone 325 MG/5 MG TAB PO PRN ×2 (14:53→21:55)
[2018-03-23] MEDS: SODIUM CHLOR 0.9% 1000 ML INJ 1,000 ML IV SCH (15:09)
[2018-03-23 16:28] VITALS: BP_SYST 114; BP_SYST 163; BP_DIAS 59; BP_DIAS 72; PULSE 60; PULSE 83; RESP 18; TEMP 97.7; O2SAT 93; O2SAT 97
--- NOTE | 2018-03-23 17:45 | EKG ---
Date Performed: 03/23/2018 Time Performed: 08:00:35 PTAGE: 68 years EKG: Sinus rhythm WITH FIRST DEGREE AV BLOCK INFERIOR MYOCARDIAL INFARCTION , PROBABLY OLD WITH POSTERIOR EXTENSION AB NORMAL ECG NO PREVIOUS TRACING DOCTOR: Melanie Pena Interpretating Date/Time 03/23/2018 17:43:28
[2018-03-23 19:53] VITALS: BP 125/62; PULSE 85; RESP 18; TEMP 97.8; O2SAT 94
[2018-03-23] MEDS: LACTOBACILLUS ACIDOPHILUS TAB PO SCH (21:43)
[2018-03-24 00:01] VITALS: BP 105/54; PULSE 91; RESP 18; TEMP 97.7; O2SAT 93
[2018-03-24 04:00] VITALS: BP 143/70; PULSE 84; RESP 18; TEMP 97.7; O2SAT 93
[2018-03-24] MEDS: ACETAMINOPHEN/HYDROcodone 325 MG/7.5 MG TAB PO PRN ×4 (04:27→23:20)
[2018-03-24 05:32] LABS: SODIUM,RANDOM URINE 71 MEQ/L
[2018-03-24 08:00] VITALS: BP 144/71; PULSE 83; RESP 18; TEMP 97.4; O2SAT 91
[2018-03-24 08:05] LABS: OSMOLALITY,URINE 394 MOSM/KG (300-1300)
[2018-03-24 08:15] LABS: INTERNATIONAL NORMALIZED RATIO 1.3 RATIO; PROTHROMBIN TIME - PATIENT 13.2 SEC (9.8-11.6)
[2018-03-24 08:45] LABS: BICARBONATE 23.7 MEQ/L (21.0-32.0); CALCIUM 7.4 MG/DL (8.5-10.1); CREATININE 0.45 MG/DL (0.60-1.30)
[2018-03-24] MEDS: REMOVE OLD NICOTINE PATCH T-DERMAL SCH (08:55)
[2018-03-24] MEDS: NICOTINE 14 MG/24 HR PATCH T-DERMAL SCH (08:55)
[2018-03-24] MEDS: GABAPENTIN 400 MG CAP PO SCH ×4 (08:55→21:36)
[2018-03-24] MEDS: ASPIRIN 81 MG CHEW TAB CHEW SCH (08:55)
[2018-03-24] MEDS: LACTOBACILLUS ACIDOPHILUS TAB PO SCH ×2 (08:55→21:36)
[2018-03-24 08:58] LABS: CALCIUM-PROTEIN CORRECTED 8.3 MG/DL (8.5-10.1); TOTAL PROTEIN 5.4 GM/DL (6.4-8.2)
--- NOTE | 2018-03-24 09:33 | PD.WCN.NOT ---
Wound Consult Description: Wound care consult ordered by for wound management Communicated with: Akosua HEARN 6 [place], Recommendation: 1. Turn patient every 2 hours for comfort and offloading. 2. Cleanse intra gluteal cleft/groin with remedy soft cloth barrier wipes 3. Apply Calazime cream in thick layer to intra gluteal cleft and groin/scrotum skin folds BID or as needed for incontinence. 4. Avoid placing patient on cotton underpads please use only UltraSorb moisture wicking underpads 5. Please reconsult wound care if treatment fails or wounds worsen. Additional Information: Late entry from 03/23.Patient was seen today by manual writer for wound management.Patient alert and oriented laying in bed resting upon writers arrival.No complaints at this time.Patient has general lower extremity weakness in which he ambulates with electric wheelchair.Patient was able to independently reposition to left side .Foam dressing removed from sacral area and intra gluteal cleft/sacral area cleansed with remedy soft cloth barriers wipes.Patient states he is not very good at providing self vishnu care.Patient noted to have moisture/incontinence related dermatitis to intra gluteal cleft and groin/scrotum area.Partial thickness denuded area located on right intra gluteal cleft measures ~1.5cm x~1.0cm wound base is 100% moist pink tissue periwound blanchable to touch.Calazime cream applied in thick layer and left open to air cotton underpad removed and ultrasorb moisture wicking underpad .Patient remained offloaded on left side upon writers departure. Abdiel Mcknight [facility] Mar 24, 2018 09:33
[2018-03-24] MEDS: SODIUM CHLOR 0.9% 1000 ML INJ 1,000 ML IV SCH ×3 (11:10→21:35)
--- NOTE | 2018-03-24 11:17 | HHI.PR ---
Subjective Remarks Leg pain better. But needs to take pain medication. Wound care nurse came out to see him earlier Objective Vitals Vital Signs Date Time Temp Pulse Resp B/P (MAP) Pulse Ox O2 Delivery O2 Flow Rate FiO2 03/24/18 08:00 97.4 83 18 144/71 (95) 91 03/24/18 04:00 97.7 84 18 143/70 (94) 93 03/24/18 00:01 97.7 91 18 105/54 (71) 93 03/23/18 19:53 97.8 85 18 125/62 (83) 94 03/23/18 16:28 97.7 83 18 114/59 (77) 93 03/23/18 13:00 97.5 87 18 106/51 (69) 93 I/O 03/23/18 03/23/18 03/23/18 03/24/18 03/24/18 03/24/18 07:00 15:00 23:00 07:00 15:00 23:00 Intake Total 1552 ml Output Total 250 ml 600 ml 625 ml Balance -250 ml -600 ml 927 ml Intake IV Total 1552 ml Output Urine Total 250 ml 600 ml 625 ml Result Diagram: 03/23/18 0800 03/24/18 0728 Other Results Item Value Date Time Prothromb Time International Ratio 1.3 RATIO 03/24/18 0728 Objective Remarks GENERAL: This is a well-nourished, well-developed patient, in no apparent distress. CARDIOVASCULAR: Regular rate and rhythm RESPIRATORY: Clear to auscultation. Breath sounds equal bilaterally. No wheezes , rales, or rhonchi. GASTROINTESTINAL: Abdomen soft, non-tender, nondistended. Normal active bowel sounds SKIN: Peripheral vascular changes with black necrotic changes in the left and right foot first toe areas, erythematous redness worse over the left dorsum of the foot but present on bilateral lower extremities NEURO: Alert & Oriented x4 to person, place, time, situation. Moves all ext x4 A/P Problem List: (1) Hyponatremia ICD Code: E87.1 - Hypo-osmolality and hyponatremia (2) Peripheral vascular disease ICD Code: I73.9 - Peripheral vascular disease, unspecified Assessment and Plan -1. Hyponatremia Levels improved On NS- check urine/ plasma osmolality and urine sodium- check TSH- will monitor the sodium level closely. 2. PVD-previously scheduled for left fem-pop bypass surgery- surgery was cancelled yesterday due to hyponatremia; will be rescheduled when the sodium level improves- vascular surgery consulted. hold coumadin for planned surgery. 3. Cellulitis of both lower extremities; evaluated by podiatry and ID recent admission ( recommended Keflex as outpatient) ; will start on Ancef for now- will consult podiatry ( ). 4. DVT prophylaxis; will start on subq Lovenox when INR < 2. Today's INR 1.3. Coumadin currently on hold. Cheri Woodson MD Mar 24, 2018 11:17
[2018-03-24 12:00] VITALS: BP 126/60; PULSE 71; RESP 18; TEMP 97.6; O2SAT 91
[2018-03-24] MEDS: ENOXAPARIN SODIUM 40 MG/0.4 ML SYRINGE SQ SCH (13:10)
[2018-03-24] MEDS: LACTIC ACID (AMMONIUM LACTATE) 12% LOTION 225 GM BTL TOPICAL SCH ×2 (14:21→21:36)
[2018-03-24 16:00] VITALS: BP 152/75; PULSE 85; RESP 20; TEMP 97.4; O2SAT 97
--- NOTE | 2018-03-24 16:44 | MB ---
cc: Aba Gordillo DPM DATE: 03/24/2018 REASON FOR CONSULTATION: Management of lower extremity wounds, specifically left hallux fracture with ischemic changes. HISTORY OF PRESENT ILLNESS: This is a 68-year-old male who was originally planned to have a revascularization per Dr. Luciano. However, the patient was noted to have an elevated INR and needed correction of sodium. The patient is known to me from previous admission. The patient sustained an injury in which it was noted that he had a left hallux fracture. Upon evaluating his condition last admission, signs of early ischemic changes were noted and Vascular Surgery was consulted. There was a plan for the patient to followup and receive revascularization in an attempt to salvage the left lower extremity. PAST MEDICAL HISTORY: Paraplegia with limited function of the extremities, PVD, hallux fracture, questionable CHF, dyslipidemia, limited movement of the lower extremities; however, mainly in wheelchair but uses his limbs to transfer. SOCIAL HISTORY: Smokes half a pack a day, drinks occasionally. INPATIENT MEDICATIONS: Reviewed. He is receiving cefazolin. Please see complete medication list in chart. PHYSICAL EXAMINATION: VITAL SIGNS: Temperature 97.6, pulse rate 71, respiratory rate 18, blood pressure 126/60, saturating 91% on room air. GENERAL: This is an alert and oriented gentleman. He is seen bedside. EXTREMITIES: He has mild contractures at his knees and his feet. In the left lower extremity there is a near-circumferential dry stable eschar with delayed capillary refill time to the left hallux. There is also noted to be interdigital eschar between the third and fourth digits. There is ischemic rubor of the left lower extremity in a similar type presentation of the right lower extremity, but no eschar, no wounds. The feet are warm, however, pulses are not palpable. Sensation significantly decreased to light touch and deep pressure. LABORATORY DATA: White blood cell 6.2, hemoglobin and hematocrit, 12 and 37, platelet count is 370. Chem-7: Sodium 130, potassium 3.6, chloride 98, CO2 23.7, BUN 4, creatinine 0.45, glucose 107. Coagulation profile: PT 13.2, INR 1.3. IMAGING STUDIES: Foot x-ray from 03/13/2018, left foot x-rays from earlier admission: Fracture of the distal phalanx extending intraarticular with good alignment. CTA with runoff, as well as arterial Doppler, all significant for peripheral vascular disease. Please see complete dictation in medical records. ASSESSMENT: Peripheral vascular disease, early evolving ischemia, left hallux and forefoot. PLAN; Await vascular intervention. The patient may need debridement versus amputation. We will discuss after the patient receives vascular intervention. In the meantime, we will keep the lesions clean and dry, Betadine swab, try to offload the heels. Thank you for this consultation. NIKITA Sinha/DONNELL , 04:11 PM , 04:43 PM AGATHA
[2018-03-24 20:00] VITALS: BP 156/72; PULSE 82; RESP 18; TEMP 97.3; O2SAT 98
[2018-03-24] MEDS: CALCIUM CARBONATE 1.25 GM (CA 500 MG) TAB PO SCH (21:36)
[2018-03-25] VITALS: BP 146/73; PULSE 84; RESP 20; TEMP 97.4; O2SAT 97
[2018-03-25] MEDS: SODIUM CHLOR 0.9% 1000 ML INJ 1,000 ML IV SCH ×2 (06:06→15:45)
[2018-03-25] MEDS: ACETAMINOPHEN/HYDROcodone 325 MG/7.5 MG TAB PO PRN ×3 (06:10→18:21)
[2018-03-25 06:40] LABS: INTERNATIONAL NORMALIZED RATIO 1.1 RATIO; PROTHROMBIN TIME - PATIENT 11.1 SEC (9.8-11.6)
[2018-03-25 06:51] LABS: BICARBONATE 28.7 MEQ/L (21.0-32.0); CALCIUM 7.9 MG/DL (8.5-10.1); CREATININE 0.38 MG/DL (0.60-1.30)
[2018-03-25 08:00] VITALS: BP 150/72; PULSE 77; RESP 20; TEMP 97.2; O2SAT 96
[2018-03-25] MEDS: ASPIRIN 81 MG CHEW TAB CHEW SCH (08:57)
[2018-03-25] MEDS: CALCIUM CARBONATE 1.25 GM (CA 500 MG) TAB PO SCH ×2 (08:57→20:47)
[2018-03-25] MEDS: LACTOBACILLUS ACIDOPHILUS TAB PO SCH ×2 (08:57→20:47)
[2018-03-25] MEDS: GABAPENTIN 400 MG CAP PO SCH ×4 (08:57→20:48)
[2018-03-25] MEDS: NICOTINE 14 MG/24 HR PATCH T-DERMAL SCH (08:58)
[2018-03-25] MEDS: LACTIC ACID (AMMONIUM LACTATE) 12% LOTION 225 GM BTL TOPICAL SCH ×2 (08:58→20:49)
[2018-03-25] MEDS: REMOVE OLD NICOTINE PATCH T-DERMAL SCH (08:59)
[2018-03-25] MEDS: ENOXAPARIN SODIUM 40 MG/0.4 ML SYRINGE SQ SCH (12:34)
--- NOTE | 2018-03-25 13:22 | PD.CAR.PN ---
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 Scheduled for the left femoropopliteal bypass today. On preop studies patient has significant hyponatremia with sodium of 1 20 mEq/ L. while mild hyponatremia is not uncommon in hospital patients doing an elective surgery with this level of hyponatremia will be quite unwise and potentially dangerous. Therefore patient needs to be admitted, hyponatremia corrected and patient will be scheduled for surgery once sodium within normal range, likely Tuesday. In addition, patient forgot to stop coumadin as instructed in pre-op phase. INR 2.0. Will wait till INR comes down as well. Discussed with hospitalist nurse practitioner. Patient will be admitted to medicine and I will follow. 03/25/2018 Patient with improving Na level. INR normalized. For left fem-pop Tuesday Objective: Vital Signs Date Time Temp Pulse Resp B/P (MAP) Pulse Ox O2 Delivery O2 Flow Rate FiO2 03/25/18 08:00 97.2 77 20 150/72 (98) 96 03/25/18 00:00 97.4 84 20 146/73 (97) 97 03/24/18 20:00 97.3 82 18 156/72 (100) 98 03/24/18 16:00 97.4 85 20 152/75 (100) 97 Labs: Laboratory Tests Test 03/25/18 06:00 Prothrombin Time 11.1 SEC (9.8-11.6) Prothromb Time International Ratio 1.1 RATIO Blood Urea Nitrogen 2 MG/DL (7-18) Creatinine 0.38 MG/DL (0.60-1.30) Random Glucose 99 MG/DL (74-106) Calcium Level 7.9 MG/DL (8.5-10.1) Sodium Level 133 MEQ/L (136-145) Potassium Level 3.6 MEQ/L (3.5-5.1) Chloride Level 96 MEQ/L (98-107) Carbon Dioxide Level 28.7 MEQ/L (21.0-32.0) Anion Gap 8 MEQ/L (5-15) Estimat Glomerular Filtration Rate 228 ML/MIN (>89) Result Diagram: 03/23/18 0800 03/25/18 0600 Bertram Luciano MD Mar 25, 2018 13:22
[2018-03-25 14:00] VITALS: BP 142/66; PULSE 87; RESP 18; TEMP 97.6; O2SAT 96
--- NOTE | 2018-03-25 15:09 | HHI.PR ---
Subjective Remarks patient is a 68 y/o male with history of PVD,recently diagnosed and treated for cellulitis of both legs was scheduled for left fem-pop bypass today . however the surgery was cancelled after he was found to have a sodium level of 120. he was just admitted to the hospital for cellulitis of both lower extremities. he was evaluated by ID, podiatry and vascular surgery. he was discharged on po Keflex per ID recommendations. he was found to have PVD with bilateral SFA occlusions. the patient decided to go home at the time. he was brought back for elective surgery today. at the time of my evaluation he was in no distress with no reported headache, nausea, vomiting- has some pain to both legs. 03-24 Leg pain better. But needs to take pain medication. Wound care nurse came out to see him earlier 03-05 PATIENT IS SCHEDULED FOR LEFT FEM-POP WITH Dr. Luciano on Tuesday Monitor labs and correct Pain control as needed Discussed with RN and patient and case management Objective Vitals Vital Signs Date Time Temp Pulse Resp B/P (MAP) Pulse Ox O2 Delivery O2 Flow Rate FiO2 03/25/18 08:00 97.2 77 20 150/72 (98) 96 03/25/18 00:00 97.4 84 20 146/73 (97) 97 03/24/18 20:00 97.3 82 18 156/72 (100) 98 03/24/18 16:00 97.4 85 20 152/75 (100) 97 I/O 03/24/18 03/24/18 03/24/18 03/25/18 03/25/18 03/25/18 07:00 15:00 23:00 07:00 15:00 23:00 Intake Total 1552 ml 493 ml 1126 ml 2145 ml Output Total 625 ml 2150 ml Balance 927 ml 493 ml 1126 ml -5 ml Intake Oral 720 ml IV Total 1552 ml 493 ml 1126 ml 1425 ml Output Urine Total 625 ml 2150 ml Result Diagram: 03/23/18 0800 03/25/18 0600 Other Results Laboratory Tests Test 03/23/18 08:00 03/23/18 18:41 03/23/18 19:32 03/24/18 04:58 White Blood Count 6.2 TH/MM3 Red Blood Count 4.12 MIL/MM3 Hemoglobin 12.8 GM/DL Hematocrit 37.8 % Mean Corpuscular Volume 91.8 FL Mean Corpuscular Hemoglobin 31.2 PG Mean Corpuscular Hemoglobin Concent 34.0 % Red Cell Distribution Width 17.0 % Platelet Count 370 TH/MM3 Mean Platelet Volume 8.2 FL Neutrophils (%) (Auto) 57.4 % Lymphocytes (%) (Auto) 23.9 % Monocytes (%) (Auto) 15.3 % Eosinophils (%) (Auto) 2.3 % Basophils (%) (Auto) 1.1 % Neutrophils # (Auto) 3.6 TH/MM3 Lymphocytes # (Auto) 1.5 TH/MM3 Monocytes # (Auto) 1.0 TH/MM3 Eosinophils # (Auto) 0.1 TH/MM3 Basophils # (Auto) 0.1 TH/MM3 CBC Comment DIFF FINAL Differential Comment Prothrombin Time 19.9 SEC Prothromb Time International Ratio 2.0 RATIO Blood Urea Nitrogen 12 MG/DL Creatinine 0.66 MG/DL Random Glucose 85 MG/DL Total Protein 6.4 GM/DL Albumin 2.4 GM/DL Calcium Level 8.5 MG/DL Alkaline Phosphatase 125 U/L Aspartate Amino Transf (AST/SGOT) 33 U/L Alanine Aminotransferase (ALT/SGPT) 14 U/L Total Bilirubin 0.6 MG/DL Sodium Level 120 MEQ/L 128 MEQ/L 128 MEQ/L Potassium Level 4.3 MEQ/L Chloride Level 88 MEQ/L Carbon Dioxide Level 19.2 MEQ/L Anion Gap 13 MEQ/L Estimat Glomerular Filtration Rate 121 ML/MIN Serum Osmolality 262 MOSM/KG Thyroid Stimulating Hormone 3rd Gen 3.120 uIU/ML Urine Osmolality 394 MOSM/KG Urine Random Sodium 71 MEQ/L Test 03/24/18 07:28 03/25/18 06:00 Prothrombin Time 13.2 SEC 11.1 SEC Prothromb Time International Ratio 1.3 RATIO 1.1 RATIO Blood Urea Nitrogen 4 MG/DL 2 MG/DL Creatinine 0.45 MG/DL 0.38 MG/DL Random Glucose 107 MG/DL 99 MG/DL Total Protein 5.4 GM/DL Calcium Level 7.4 MG/DL 7.9 MG/DL Sodium Level 130 MEQ/L 133 MEQ/L Potassium Level 3.6 MEQ/L 3.6 MEQ/L Chloride Level 98 MEQ/L 96 MEQ/L Carbon Dioxide Level 23.7 MEQ/L 28.7 MEQ/L Anion Gap 8 MEQ/L 8 MEQ/L Estimat Glomerular Filtration Rate 188 ML/MIN 228 ML/MIN Protein Corrected Calcium 8.3 MG/DL Objective Remarks GENERAL: Well-nourished well-developed patient in no acute distress SKIN: Warm and dry. Peripheral vascular changes with black necrotic changes in the left and right foot first toe areas, erythematous redness worse over the left dorsum of the foot present on bilateral lower extremities HEAD: Atraumatic. Normocephalic. EYES: Pupils equal and round. No scleral icterus. No injection or drainage. ENT: No nasal bleeding or discharge. Mucous membranes pink and moist. NECK: Trachea midline. No JVD. CARDIOVASCULAR: Regular rate and rhythm. RESPIRATORY: No accessory muscle use. Clear to auscultation. Breath sounds equal bilaterally. GASTROINTESTINAL: Abdomen soft, non-tender, nondistended. Hepatic and splenic margins not palpable. MUSCULOSKELETAL: Extremities without clubbing, cyanosis, or edema. No obvious deformities. NEUROLOGICAL: Awake and alert. No obvious cranial nerve deficits. Motor grossly within normal limits. Five out of 5 muscle strength in the arms and legs. Normal speech. Awake alert and oriented 4 to person, place, time, situation moves all 4 extremities PSYCHIATRIC: Appropriate mood and affect; insight and judgment normal. Medications and IVs Current Medications Lactated Ringer's 1,000 ml @ 30 mls/hr Q24H PRN IV SEE LABEL COMMENTS Last administered on 03/23/18at 09:00; Start 03/23/18 at 08:00; Stop 03/23/18 at 14:08 ; Status DC Sodium Chloride 500 ml @ 30 mls/hr [id number] PRN IV SEE LABEL COMMENTS; Start at 08:00; Stop 03/23/18 at 14:08; Status DC Metoprolol Tartrate (Lopressor) 25 mg POSTING SPECIALIST PRN PO SEE LABEL COMMENTS; Start 03/23/18 at 08:00; Stop 03/26/18 at 07:59 Povidone Iodine (Betadine 5% Antisepsis Kit) 1 applic POSTING SPECIALIST PRN EACH NARE SEE LABEL COMMENTS; Start 03/23/18 at 08:00; Stop 03/26/18 at 07:59 Chlorhexidine Gluconate (Chlorhexidine 2% Cloth) 3 pack POSTING SPECIALIST PRN TOPICAL SEE LABEL COMMENTS; Start 03/23/18 at 08:00; Stop 03/26/18 at 07:59 Heparin Sodium (Porcine) (Heparin Inj) 10,000 units STK-MED ONCE .ROUTE ; Start 03/23/18 at 08:49; Stop 03/23/18 at 08:50; Status DC Cefazolin Sodium/ Dextrose 0 ml @ As Directed STK-MED ONCE .ROUTE ; Start at 08:49; Stop 03/23/18 at 08:50; Status DC Heparin Sodium (Porcine) (Heparin Inj) 10,000 units STK-MED ONCE .ROUTE ; Start 03/23/18 at 08:49; Stop 03/23/18 at 08:50; Status DC Protamine Sulfate (Protamine Sulfate Inj) 50 mg STK-MED ONCE .ROUTE ; Start at 08:49; Stop 03/23/18 at 08:50; Status DC Sodium Chloride 1,000 ml @ 84 mls/hr [id number] IV ; Start 03/23/18 at 10:30; Stop 03/23/18 at 10:49; Status DC Sodium Chloride 1,000 ml @ 100 mls/hr Q10H IV Last administered on 03/25/18at 06:06; Start 03/23/18 at 14:00 Gabapentin (Neurontin) 800 mg QID PO Last administered on 03/25/18at 12:34; Start 03/23/18 at 14:00 Lactobacillus Acidophilus (Lactinex) 1 tab BID PO Last administered on at 08:57; Start 03/23/18 at 21:00 Cephalexin Monohydrate (Keflex) 500 mg Q6HR PO ; Start 03/23/18 at 12:00; Stop 03/23/18 at 12:00; Status DC Nicotine (Habitrol 14 Mg Patch.24 Hr) 1 patch DAILY T-DERMAL Last administered on 03/25/18at 08:58; Start 03/24/18 at 09:00 Acetaminophen/ Hydrocodone Bitart ([place] 5-325 Mg) 1 tab Q4H PRN PO PAIN 4-10 Last administered on 03/23/18at 21:55; Start 03/23/18 at 11:00 Cefazolin Sodium 1000 mg/Sodium Chloride 100 ml @ 200 mls/hr Q8H IV Last administered on 03/25/18 06:06; Start 03/23/18 at 14:00 Miscellaneous Information 1 DAILY T-DERMAL Last administered on 03/25/18 08:59 ; Start 03/24/18 at 09:00 Aspirin (Aspirin Chew) 81 mg DAILY CHEW Last administered on 03/25/18 08:57; Start 03/24/18 at 09:00 Acetaminophen/ Hydrocodone Bitart ([place] 7.5-325 Mg) 1 tab Q6H PRN PO PAIN Last administered on 03/25/18 12:34; Start 03/24/18 at 02:45 Calcium Carbonate (Oscal) 500 mg Q12HR PO Last administered on 03/25/18 08:57 ; Start 03/24/18 at 21:00 Enoxaparin Sodium (Lovenox Inj) 40 mg Q24H SQ Last administered on 03/25/18 12 :34; Start 03/24/18 at 13:00 Lactic Acid (Lac-Hydrin 12% Lotion) 1 applic BID TOPICAL Last administered on 08:58; Start 03/24/18 at 14:00 A/P Problem List: (1) Hyponatremia ICD Code: E87.1 - Hypo-osmolality and hyponatremia (2) Peripheral vascular disease ICD Code: I73.9 - Peripheral vascular disease, unspecified Assessment and Plan -1. Hyponatremia Levels improved On NS- check urine/ plasma osmolality and urine sodium- check TSH- will monitor the sodium level closely. 2. PVD-previously scheduled for left fem-pop bypass surgery- surgery was cancelled yesterday due to hyponatremia; will be rescheduled when the sodium level improves- vascular surgery consulted. hold coumadin for planned surgery. 3. Cellulitis of both lower extremities; evaluated by podiatry and ID recent admission ( recommended Keflex as outpatient) ; will start on Ancef for now- will consult podiatry ( ). 4. DVT prophylaxis; will start on subq Lovenox when INR < 2. Today's INR 1.3. Coumadin currently on hold. Discharge Planning Pending surgical clearance Dhruv Tobias DO Mar 25, 2018 15:09
[2018-03-25 20:00] VITALS: BP 122/59; PULSE 91; RESP 20; TEMP 97.7; O2SAT 95
[2018-03-26] VITALS: BP 113/59; PULSE 79; RESP 20; TEMP 97.4; O2SAT 91
[2018-03-26] MEDS: SODIUM CHLOR 0.9% 1000 ML INJ 1,000 ML IV SCH ×2 (02:38→12:00)
[2018-03-26] MEDS: ACETAMINOPHEN/HYDROcodone 325 MG/7.5 MG TAB PO PRN ×2 (02:42→09:23)
[2018-03-26 06:36] LABS: AUTOMATED NEUTROPHIL # 3.7 TH/MM3 (1.8-7.7); BASOPHIL # 0.1 TH/MM3 (0-0.2); BASOPHIL % 1.4 % (0.0-2.0); EOSINOPHIL # 0.3 TH/MM3 (0-0.4); EOSINOPHIL % 4.3 % (0.0-4.0); HEMATOCRIT 38.8 % (39.0-51.0); HEMOGLOBIN 12.9 GM/DL (13.0-17.0); LYMPH % 22.5 % (9.0-44.0); LYMPHOCYTE # 1.3 TH/MM3 (1.0-4.8); MEAN CELL VOLUME 92.4 FL (80.0-100.0); MEAN CORPUSCULAR HEMOGLOBIN 30.8 PG (27.0-34.0); MEAN CORPUSCULAR HGB CONC 33.3 % (32.0-36.0); MEAN PLATELET VOLUME 8.1 FL (7.0-11.0); MONO % 9.7 % (0.0-8.0); MONOCYTE # 0.6 TH/MM3 (0-0.9); NEUT % 62.1 % (16.0-70.0); PLATELET COUNT 372 TH/MM3 (150-450); RED CELL DISTRIBUTION WIDTH 17.5 % (11.6-17.2); WHITE BLOOD COUNT 5.9 TH/MM3 (4.0-11.0)
[2018-03-26 07:00] LABS: ALBUMIN 1.9 GM/DL (3.4-5.0); AST (GOT) 23 U/L (15-37); BICARBONATE 28.7 MEQ/L (21.0-32.0); BLOOD UREA NITROGEN 3 MG/DL (7-18); CALCIUM 8.1 MG/DL (8.5-10.1); CHLORIDE 95 MEQ/L (98-107); CREATININE 0.39 MG/DL (0.60-1.30); GLOMERULAR FILTRATION RATE 222 ML/MIN (>89); GLUCOSE,RANDOM 87 MG/DL (74-106); MAGNESIUM 1.4 MG/DL (1.5-2.5); SODIUM (NA) 132 MEQ/L (136-145)
[2018-03-26 07:10] LABS: ALKALINE PHOSPHATASE 104 U/L (45-117); ALT (GPT) 10 U/L (12-78); FREE T4 1.03 NG/DL (0.76-1.46); PHOSPHORUS 2.3 MG/DL (2.5-4.9); TOTAL BILIRUBIN ADULT 0.2 MG/DL (0.2-1.0); TOTAL PROTEIN 5.5 GM/DL (6.4-8.2)
[2018-03-26 08:00] VITALS: BP 173/73; PULSE 85; RESP 18; TEMP 98; O2SAT 94
[2018-03-26] MEDS: REMOVE OLD NICOTINE PATCH T-DERMAL SCH (09:00)
[2018-03-26] MEDS: ASPIRIN 81 MG CHEW TAB CHEW SCH (09:22)
[2018-03-26] MEDS: CALCIUM CARBONATE 1.25 GM (CA 500 MG) TAB PO SCH ×2 (09:22→20:15)
[2018-03-26] MEDS: GABAPENTIN 400 MG CAP PO SCH ×4 (09:22→20:15)
[2018-03-26] MEDS: LACTOBACILLUS ACIDOPHILUS TAB PO SCH ×2 (09:22→20:15)
[2018-03-26] MEDS: NICOTINE 14 MG/24 HR PATCH T-DERMAL SCH (09:23)
[2018-03-26] MEDS: LACTIC ACID (AMMONIUM LACTATE) 12% LOTION 225 GM BTL TOPICAL SCH ×2 (09:23→20:15)
--- NOTE | 2018-03-26 11:26 | HHI.PR ---
Subjective Remarks patient is a 68 y/o male with history of PVD,recently diagnosed and treated for cellulitis of both legs was scheduled for left fem-pop bypass today . however the surgery was cancelled after he was found to have a sodium level of 120. he was just admitted to the hospital for cellulitis of both lower extremities. he was evaluated by ID, podiatry and vascular surgery. he was discharged on po Keflex per ID recommendations. he was found to have PVD with bilateral SFA occlusions. the patient decided to go home at the time. he was brought back for elective surgery today. at the time of my evaluation he was in no distress with no reported headache, nausea, vomiting- has some pain to both legs. 03-24 Leg pain better. But needs to take pain medication. Wound care nurse came out to see him earlier 03-25 PATIENT IS SCHEDULED FOR LEFT FEM-POP WITH Dr. Luciano on Tuesday Monitor labs and correct Pain control as needed Discussed with RN and patient and case management 03-26 SCHEDULED FOR FEM-POP WITH Dr. Luciano TUESDAY STATES PAIN IS NOT CONTROLLED WILL ADJUST AM LABS DW RN AND PT AND CM REPLACE POTASSIUM HYPOMAG WILL REPLACE ALSO Objective Vitals Vital Signs Date Time Temp Pulse Resp B/P (MAP) Pulse Ox O2 Delivery O2 Flow Rate FiO2 03/26/18 00:00 97.4 79 20 113/59 (77) 91 03/25/18 20:00 97.7 91 20 122/59 (80) 95 03/25/18 14:00 97.6 87 18 142/66 (91) 96 I/O 03/25/18 03/25/18 03/25/18 03/26/18 03/26/18 03/26/18 07:00 15:00 23:00 07:00 15:00 23:00 Intake Total 2145 ml 1080 ml Output Total 2150 ml 2475 ml Balance -5 ml -1395 ml Intake Oral 720 ml 1080 ml IV Total 1425 ml Output Urine Total 2150 ml 2475 ml Result Diagram: 03/26/18 0530 03/26/18 0530 Other Results Laboratory Tests Test 03/23/18 18:41 03/23/18 19:32 03/24/18 04:58 03/24/18 07:28 Sodium Level 128 MEQ/L 128 MEQ/L 130 MEQ/L Serum Osmolality 262 MOSM/KG Thyroid Stimulating Hormone 3rd Gen 3.120 uIU/ML Urine Osmolality 394 MOSM/KG Urine Random Sodium 71 MEQ/L Prothrombin Time 13.2 SEC Prothromb Time International Ratio 1.3 RATIO Blood Urea Nitrogen 4 MG/DL Creatinine 0.45 MG/DL Random Glucose 107 MG/DL Total Protein 5.4 GM/DL Calcium Level 7.4 MG/DL Potassium Level 3.6 MEQ/L Chloride Level 98 MEQ/L Carbon Dioxide Level 23.7 MEQ/L Anion Gap 8 MEQ/L Estimat Glomerular Filtration Rate 188 ML/MIN Protein Corrected Calcium 8.3 MG/DL Test 03/25/18 06:00 03/26/18 05:30 Prothrombin Time 11.1 SEC Prothromb Time International Ratio 1.1 RATIO Blood Urea Nitrogen 2 MG/DL 3 MG/DL Creatinine 0.38 MG/DL 0.39 MG/DL Random Glucose 99 MG/DL 87 MG/DL Calcium Level 7.9 MG/DL 8.1 MG/DL Sodium Level 133 MEQ/L 132 MEQ/L Potassium Level 3.6 MEQ/L 3.3 MEQ/L Chloride Level 96 MEQ/L 95 MEQ/L Carbon Dioxide Level 28.7 MEQ/L 28.7 MEQ/L Anion Gap 8 MEQ/L 8 MEQ/L Estimat Glomerular Filtration Rate 228 ML/MIN 222 ML/MIN White Blood Count 5.9 TH/MM3 Red Blood Count 4.20 MIL/MM3 Hemoglobin 12.9 GM/DL Hematocrit 38.8 % Mean Corpuscular Volume 92.4 FL Mean Corpuscular Hemoglobin 30.8 PG Mean Corpuscular Hemoglobin Concent 33.3 % Red Cell Distribution Width 17.5 % Platelet Count 372 TH/MM3 Mean Platelet Volume 8.1 FL Neutrophils (%) (Auto) 62.1 % Lymphocytes (%) (Auto) 22.5 % Monocytes (%) (Auto) 9.7 % Eosinophils (%) (Auto) 4.3 % Basophils (%) (Auto) 1.4 % Neutrophils # (Auto) 3.7 TH/MM3 Lymphocytes # (Auto) 1.3 TH/MM3 Monocytes # (Auto) 0.6 TH/MM3 Eosinophils # (Auto) 0.3 TH/MM3 Basophils # (Auto) 0.1 TH/MM3 CBC Comment DIFF FINAL Differential Comment Total Protein 5.5 GM/DL Albumin 1.9 GM/DL Phosphorus Level 2.3 MG/DL Magnesium Level 1.4 MG/DL Alkaline Phosphatase 104 U/L Aspartate Amino Transf (AST/SGOT) 23 U/L Alanine Aminotransferase (ALT/SGPT) 10 U/L Total Bilirubin 0.2 MG/DL Free Thyroxine 1.03 NG/DL Thyroid Stimulating Hormone 3rd Gen 4.310 uIU/ML Objective Remarks GENERAL: Well-nourished well-developed patient in no acute distress SKIN: Warm and dry. Peripheral vascular changes with black necrotic changes in the left and right foot first toe areas, erythematous redness worse over the left dorsum of the foot present on bilateral lower extremities HEAD: Atraumatic. Normocephalic. EYES: Pupils equal and round. No scleral icterus. No injection or drainage. ENT: No nasal bleeding or discharge. Mucous membranes pink and moist. NECK: Trachea midline. No JVD. CARDIOVASCULAR: Regular rate and rhythm. RESPIRATORY: No accessory muscle use. Clear to auscultation. Breath sounds equal bilaterally. GASTROINTESTINAL: Abdomen soft, non-tender, nondistended. Hepatic and splenic margins not palpable. MUSCULOSKELETAL: Extremities without clubbing, cyanosis, or edema. No obvious deformities. NEUROLOGICAL: Awake and alert. No obvious cranial nerve deficits. Motor grossly within normal limits. Five out of 5 muscle strength in the arms and legs. Normal speech. Awake alert and oriented 4 to person, place, time, situation moves all 4 extremities PSYCHIATRIC: Appropriate mood and affect; insight and judgment normal. Medications and IVs Current Medications Lactated Ringer's 1,000 ml @ 30 mls/hr Q24H PRN IV SEE LABEL COMMENTS Last administered on 03/23/18at 09:00; Start 03/23/18 at 08:00; Stop 03/23/18 at 14:08 ; Status DC Sodium Chloride 500 ml @ 30 mls/hr [id number] PRN IV SEE LABEL COMMENTS; Start at 08:00; Stop 03/23/18 at 14:08; Status DC Metoprolol Tartrate (Lopressor) 25 mg [employer]GER PRN PO SEE LABEL COMMENTS; Start 03/23/18 at 08:00; Stop 03/26/18 at 07:59; Status DC Povidone Iodine (Betadine 5% Antisepsis Kit) 1 applic [employer]GER PRN EACH NARE SEE LABEL COMMENTS; Start 03/23/18 at 08:00; Stop 03/26/18 at 07:59; Status DC Chlorhexidine Gluconate (Chlorhexidine 2% Cloth) 3 pack [employer]GER PRN TOPICAL SEE LABEL COMMENTS; Start 03/23/18 at 08:00; Stop 03/26/18 at 07:59; Status DC Heparin Sodium (Porcine) (Heparin Inj) 10,000 units STK-MED ONCE .ROUTE ; Start 03/23/18 at 08:49; Stop 03/23/18 at 08:50; Status DC Cefazolin Sodium/ Dextrose 0 ml @ As Directed STK-MED ONCE .ROUTE ; Start at 08:49; Stop 03/23/18 at 08:50; Status DC Heparin Sodium (Porcine) (Heparin Inj) 10,000 units STK-MED ONCE .ROUTE ; Start 03/23/18 at 08:49; Stop 03/23/18 at 08:50; Status DC Protamine Sulfate (Protamine Sulfate Inj) 50 mg STK-MED ONCE .ROUTE ; Start at 08:49; Stop 03/23/18 at 08:50; Status DC Sodium Chloride 1,000 ml @ 84 mls/hr [id number] IV ; Start 03/23/18 at 10:30; Stop 03/23/18 at 10:49; Status DC Sodium Chloride 1,000 ml @ 100 mls/hr Q10H IV Last administered on 03/26/18at 02:38; Start 03/23/18 at 14:00 Gabapentin (Neurontin) 800 mg QID PO Last administered on 03/26/18at 09:22; Start 03/23/18 at 14:00 Lactobacillus Acidophilus (Lactinex) 1 tab BID PO Last administered on at 09:22; Start 03/23/18 at 21:00 Cephalexin Monohydrate (Keflex) 500 mg Q6HR PO ; Start 03/23/18 at 12:00; Stop 03/23/18 at 12:00; Status DC Nicotine (Habitrol 14 Mg Patch.24 Hr) 1 patch DAILY T-DERMAL Last administered on 03/26/18at 09:23; Start 03/24/18 at 09:00 Acetaminophen/ Hydrocodone Bitart ([place] 5-325 Mg) 1 tab Q4H PRN PO PAIN 4-10 Last administered on 6/21/18at 21:55; Start 03/23/18 at 11:00 Cefazolin Sodium 1000 mg/Sodium Chloride 100 ml @ 200 mls/hr Q8H IV Last administered on 03/26/18 06:19; Start 03/23/18 at 14:00 Miscellaneous Information 1 DAILY T-DERMAL Last administered on 03/26/18 09:00 ; Start 03/24/18 at 09:00 Aspirin (Aspirin Chew) 81 mg DAILY CHEW Last administered on 03/26/18 09:22; Start 03/24/18 at 09:00 Acetaminophen/ Hydrocodone Bitart ([place] 7.5-325 Mg) 1 tab Q6H PRN PO PAIN Last administered on 03/26/18 09:23; Start 03/24/18 at 02:45 Calcium Carbonate ([place]scal) 500 mg Q12HR PO Last administered on 03/26/18 09:22 ; Start 03/24/18 at 21:00 Enoxaparin Sodium (Lovenox Inj) 40 mg Q24H SQ Last administered on 03/25/18 12 :34; Start 03/24/18 at 13:00 Lactic Acid (Lac-Hydrin 12% Lotion) 1 applic BID TOPICAL Last administered on 09:23; Start 03/24/18 at 14:00 A/P Problem List: (1) Hyponatremia ICD Code: E87.1 - Hypo-osmolality and hyponatremia (2) Peripheral vascular disease ICD Code: I73.9 - Peripheral vascular disease, unspecified Assessment and Plan -1. Hyponatremia Levels improved On NS- check urine/ plasma osmolality and urine sodium- check TSH- will monitor the sodium level closely. 2. PVD-previously scheduled for left fem-pop bypass surgery- surgery was cancelled yesterday due to hyponatremia; will be rescheduled when the sodium level improves- vascular surgery consulted. hold coumadin for planned surgery. 3. Cellulitis of both lower extremities; evaluated by podiatry and ID recent admission ( recommended Keflex as outpatient) ; will start on Ancef for now- will consult podiatry ( ). 4. DVT prophylaxis; will start on subq Lovenox when INR < 2. Today's INR 1.3. Coumadin currently on hold. FOR LEFT FEM-POP TOMORROW AM LABS ADJUST PAIN MEDS HYPOKALEMIA WILL REPLACE HYPOMAG WILL REPLACE Discharge Planning Pending surgical clearance Dhruv Tobias DO Mar 26, 2018 11:26
[2018-03-26] MEDS ORDERED: NALOXONE HCL 0.4 MG/ML AMP IV PUSH PRN (11:30)
[2018-03-26] MEDS ORDERED: METOCLOPRAMIDE HCL 10 MG/2 ML VIAL IV PUSH PRN (11:30)
[2018-03-26] MEDS ORDERED: LACTULOSE SYRUP 20 GM/30 ML CUP PO PRN (11:30)
[2018-03-26] MEDS ORDERED: ACETAMINOPHEN 325 MG TAB PO PRN ×2 (11:30)
[2018-03-26] MEDS ORDERED: SODIUM CHLORIDE 0.9% FLUSH 10 ML FLUSH IV FLUSH PRN (11:30)
[2018-03-26] MEDS ORDERED: SENNOSIDES 8.6 MG TAB PO PRN (11:30)
[2018-03-26] MEDS ORDERED: MAGNESIUM HYDROXIDE SUSP 30 ML CUP PO PRN (11:30)
[2018-03-26] MEDS ORDERED: POTASSIUM PHOSPHATE INJ 30 MMOL in SODIUM CHLOR 0.9% 250 ML INJ 250 ML IV ONE (11:30)
[2018-03-26] MEDS ORDERED: MORPHINE SULFATE 4 MG/ML INJ IV PUSH PRN ×2 (11:30)
[2018-03-26] MEDS ORDERED: BISACODYL 10 MG SUPP RECTAL PRN (11:30)
[2018-03-26] MEDS ORDERED: POTASSIUM CHLORIDE 20 MEQ CONTROLLED RELEASE TAB PO ONE ×2 (11:30→13:30)
[2018-03-26] MEDS ORDERED: ONDANSETRON ODT 4 MG TAB PO PRN (11:45)
[2018-03-26 12:22] LABS: HEMOGLOBIN A1C 5.1 % (4.3-6.0)
[2018-03-26] MEDS: MAGNESIUM SULFATE 1 GM PREMIX 100 ML IV SCH ×2 (14:42→16:03)
[2018-03-26] MEDS: ENOXAPARIN SODIUM 40 MG/0.4 ML SYRINGE SQ SCH (14:48)
[2018-03-26] MEDS: oxyCODONE/ACETAMINOPHEN 10 MG/325 MG TAB PO PRN ×2 (14:50→20:51)
--- NOTE | 2018-03-26 14:52 | PD.CAR.PN ---
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 Scheduled for the left femoropopliteal bypass today. On preop studies patient has significant hyponatremia with sodium of 1 20 mEq/ L. while mild hyponatremia is not uncommon in hospital patients doing an elective surgery with this level of hyponatremia will be quite unwise and potentially dangerous. Therefore patient needs to be admitted, hyponatremia corrected and patient will be scheduled for surgery once sodium within normal range, likely Tuesday. In addition, patient forgot to stop coumadin as instructed in pre-op phase. INR 2.0. Will wait till INR comes down as well. Discussed with hospitalist nurse practitioner. Patient will be admitted to medicine and I will follow. 03/25/2018 Patient with improving Na level. INR normalized. For left fem-pop Tuesday03/26/2018 Patient doing much better Sodium corrected Hemoglobin stable For left femoropopliteal bypass tomorrow Objective: Vital Signs Date Time Temp Pulse Resp B/P (MAP) Pulse Ox O2 Delivery O2 Flow Rate FiO2 03/26/18 00:00 97.4 79 20 113/59 (77) 91 03/25/18 20:00 97.7 91 20 122/59 (80) 95 Labs: Laboratory Tests Test 03/26/18 05:30 White Blood Count 5.9 TH/MM3 (4.0-11.0) Red Blood Count 4.20 MIL/MM3 (4.50-5.90) Hemoglobin 12.9 GM/DL (13.0-17.0) Hematocrit 38.8 % (39.0-51.0) Mean Corpuscular Volume 92.4 FL (80.0-100.0) Mean Corpuscular Hemoglobin 30.8 PG (27.0-34.0) Mean Corpuscular Hemoglobin Concent 33.3 % (32.0-36.0) Red Cell Distribution Width 17.5 % (11.6-17.2) Platelet Count 372 TH/MM3 (150-450) Mean Platelet Volume 8.1 FL (7.0-11.0) Neutrophils (%) (Auto) 62.1 % (16.0-70.0) Lymphocytes (%) (Auto) 22.5 % (9.0-44.0) Monocytes (%) (Auto) 9.7 % (0.0-8.0) Eosinophils (%) (Auto) 4.3 % (0.0-4.0) Basophils (%) (Auto) 1.4 % (0.0-2.0) Neutrophils # (Auto) 3.7 TH/MM3 (1.8-7.7) Lymphocytes # (Auto) 1.3 TH/MM3 (1.0-4.8) Monocytes # (Auto) 0.6 TH/MM3 (0-0.9) Eosinophils # (Auto) 0.3 TH/MM3 (0-0.4) Basophils # (Auto) 0.1 TH/MM3 (0-0.2) CBC Comment DIFF FINAL Differential Comment Blood Urea Nitrogen 3 MG/DL (7-18) Creatinine 0.39 MG/DL (0.60-1.30) Random Glucose 87 MG/DL (74-106) Total Protein 5.5 GM/DL (6.4-8.2) Albumin 1.9 GM/DL (3.4-5.0) Calcium Level 8.1 MG/DL (8.5-10.1) Phosphorus Level 2.3 MG/DL (2.5-4.9) Magnesium Level 1.4 MG/DL (1.5-2.5) Alkaline Phosphatase 104 U/L (45-117) Aspartate Amino Transf (AST/SGOT) 23 U/L (15-37) Alanine Aminotransferase (ALT/SGPT) 10 U/L (12-78) Total Bilirubin 0.2 MG/DL (0.2-1.0) Sodium Level 132 MEQ/L (136-145) Potassium Level 3.3 MEQ/L (3.5-5.1) Chloride Level 95 MEQ/L (98-107) Carbon Dioxide Level 28.7 MEQ/L (21.0-32.0) Anion Gap 8 MEQ/L (5-15) Estimat Glomerular Filtration Rate 222 ML/MIN (>89) Hemoglobin A1c 5.1 % (4.3-6.0) Free Thyroxine 1.03 NG/DL (0.76-1.46) Thyroid Stimulating Hormone 3rd Gen 4.310 uIU/ML (0.358-3.740) Result Diagram: 03/26/1830 03/26/1830 Bertram Luciano MD Mar 26, 2018 14:52
--- NOTE | 2018-03-26 15:18 | OTSOAPIP ---
RECEIVED OCCUPATIONAL THERAPY ORDERS FROM DR. BERNARD. ATTEMPTED TO SEE PATIENT THIS DATE, HOWEVER PATIENT POLITELY DECLINES EVALUATION. PATIENT STATES "I'M NOT FEELING GOOD AT ALL." PATIENT IS SCHEDULED FOR LEFT FEMOROPOPLITEAL BYPASS TOMORROW. WILL REATTEMPT POST SURGERY. INTERDISCIPLINARY COMMUNICATION: REVIEWED ELECTRONIC MEDICAL RECORD Therapist: Leeann Mohr, OTR/L Signature on file
[2018-03-26 16:00] VITALS: BP 156/76; PULSE 84; RESP 18; TEMP 98; O2SAT 96
[2018-03-26 20:10] VITALS: BP 140/69; PULSE 86; RESP 17; TEMP 97.6; O2SAT 96
[2018-03-26] MEDS: DOCUSATE SODIUM 50 MG/SENNA 8.6 MG TAB PO SCH (20:15)
[2018-03-26] MEDS: SODIUM CHLORIDE 0.9% FLUSH 10 ML FLUSH IV FLUSH SCH (20:16)
[2018-03-27] MEDS: SODIUM CHLOR 0.9% 1000 ML INJ 1,000 ML IV SCH ×4 (00:31→20:30)
[2018-03-27 00:32] VITALS: BP 157/69; PULSE 82; RESP 17; TEMP 97.5; O2SAT 98
[2018-03-27] MEDS: MORPHINE SULFATE 4 MG/ML INJ IV PUSH PRN ×5 (00:32→14:23)
[2018-03-27] MEDS ORDERED: POVIDONE IODINE 5% (ANTISEPSIS KIT) 4 APPLICATIONS EACH NARE PRN (02:45)
[2018-03-27] MEDS ORDERED: LACTATED RINGER'S 1000 ML IV PRN (02:45)
[2018-03-27] MEDS ORDERED: METOPROLOL TARTRATE 25 MG TAB PO PRN (02:45)
[2018-03-27] MEDS ORDERED: CHLORHEXIDINE GLUCONATE 2 % 1 PACK (2 CLOTHS) TOPICAL PRN (02:45)
[2018-03-27] MEDS ORDERED: SODIUM CHLORID 0.9% 500 ML IV PRN (02:45)
[2018-03-27 08:00] VITALS: BP 144/79; PULSE 86; RESP 18; TEMP 97.3; O2SAT 97
[2018-03-27] MEDS: REMOVE OLD NICOTINE PATCH T-DERMAL SCH (08:15)
[2018-03-27] MEDS: NICOTINE 14 MG/24 HR PATCH T-DERMAL SCH (08:22)
[2018-03-27] MEDS: CALCIUM CARBONATE 1.25 GM (CA 500 MG) TAB PO SCH ×2 (08:23→22:06)
[2018-03-27] MEDS: GABAPENTIN 400 MG CAP PO SCH ×4 (08:23→22:06)
[2018-03-27] MEDS: LACTOBACILLUS ACIDOPHILUS TAB PO SCH ×2 (08:23→22:05)
[2018-03-27] MEDS: ASPIRIN 81 MG CHEW TAB CHEW SCH (08:23)
[2018-03-27] MEDS: DOCUSATE SODIUM 50 MG/SENNA 8.6 MG TAB PO SCH ×2 (08:23→22:06)
[2018-03-27] MEDS: LACTIC ACID (AMMONIUM LACTATE) 12% LOTION 225 GM BTL TOPICAL SCH ×2 (09:00→21:00)
[2018-03-27] MEDS: SODIUM CHLORIDE 0.9% FLUSH 10 ML FLUSH IV FLUSH SCH ×2 (09:00→20:30)
[2018-03-27 09:50] LABS: AUTOMATED NEUTROPHIL # 3.2 TH/MM3 (1.8-7.7); BASOPHIL # 0.1 TH/MM3 (0-0.2); BASOPHIL % 1.1 % (0.0-2.0); EOSINOPHIL # 0.4 TH/MM3 (0-0.4); EOSINOPHIL % 6.9 % (0.0-4.0); HEMATOCRIT 39.8 % (39.0-51.0); HEMOGLOBIN 13.4 GM/DL (13.0-17.0); LYMPH % 26.1 % (9.0-44.0); LYMPHOCYTE # 1.5 TH/MM3 (1.0-4.8); MEAN CELL VOLUME 94.5 FL (80.0-100.0); MEAN CORPUSCULAR HEMOGLOBIN 31.8 PG (27.0-34.0); MEAN CORPUSCULAR HGB CONC 33.6 % (32.0-36.0); MEAN PLATELET VOLUME 7.9 FL (7.0-11.0); MONO % 10.6 % (0.0-8.0); MONOCYTE # 0.6 TH/MM3 (0-0.9); NEUT % 55.3 % (16.0-70.0); PLATELET COUNT 378 TH/MM3 (150-450); RED BLOOD COUNT 4.21 MIL/MM3 (4.50-5.90); RED CELL DISTRIBUTION WIDTH 17.3 % (11.6-17.2); WHITE BLOOD COUNT 5.7 TH/MM3 (4.0-11.0)
[2018-03-27 10:05] LABS: PROTHROMBIN TIME - PATIENT 10.4 SEC (9.8-11.6)
--- NOTE | 2018-03-27 11:00 | HHI.PR ---
Subjective Remarks patient is a 68 y/o male with history of PVD,recently diagnosed and treated for cellulitis of both legs was scheduled for left fem-pop bypass today . however the surgery was cancelled after he was found to have a sodium level of 120. he was just admitted to the hospital for cellulitis of both lower extremities. he was evaluated by ID, podiatry and vascular surgery. he was discharged on po Keflex per ID recommendations. he was found to have PVD with bilateral SFA occlusions. the patient decided to go home at the time. he was brought back for elective surgery today. at the time of my evaluation he was in no distress with no reported headache, nausea, vomiting- has some pain to both legs. 03-24 Leg pain better. But needs to take pain medication. Wound care nurse came out to see him earlier 03-25 PATIENT IS SCHEDULED FOR LEFT FEM-POP WITH Dr. Luciano on Tuesday Monitor labs and correct Pain control as needed Discussed with RN and patient and case management 03-26 SCHEDULED FOR FEM-POP WITH Dr. Luciano TUESDAY STATES PAIN IS NOT CONTROLLED WILL ADJUST AM LABS DW RN AND PT AND CM REPLACE POTASSIUM HYPOMAG WILL REPLACE ALSO 03-27 FOR SURGERY TODAY DW RN AND PT AND CM Objective Vitals Vital Signs Date Time Temp Pulse Resp B/P (MAP) Pulse Ox O2 Delivery O2 Flow Rate FiO2 03/27/18 08:00 97.3 86 18 144/79 (100) 97 03/27/18 00:32 97.5 82 17 157/69 (98) 98 03/26/18 20:10 97.6 86 17 140/69 (92) 96 03/26/18 16:00 98.0 84 18 156/76 (102) 96 I/O 03/26/18 03/26/18 03/26/18 03/27/18 03/27/18 03/27/18 07:00 15:00 23:00 07:00 15:00 23:00 Intake Total 1080 ml 1820 ml Output Total 2475 ml 2100 ml 1950 ml 700 ml Balance -1395 ml -2100 ml -130 ml -700 ml Intake Oral 1080 ml 720 ml IV Total 1100 ml Output Urine Total 2475 ml 2100 ml 1950 ml 700 ml # Bowel Movements 0 Result Diagram: 03/27/18 0810 03/26/18 0530 Other Results Laboratory Tests Test 03/25/18 06:00 03/26/18 05:30 03/27/18 08:00 03/27/18 08:10 Prothrombin Time 11.1 SEC 10.4 SEC Prothromb Time International Ratio 1.1 RATIO 1.0 RATIO Blood Urea Nitrogen 2 MG/DL 3 MG/DL Creatinine 0.38 MG/DL 0.39 MG/DL Random Glucose 99 MG/DL 87 MG/DL Calcium Level 7.9 MG/DL 8.1 MG/DL Sodium Level 133 MEQ/L 132 MEQ/L Potassium Level 3.6 MEQ/L 3.3 MEQ/L Chloride Level 96 MEQ/L 95 MEQ/L Carbon Dioxide Level 28.7 MEQ/L 28.7 MEQ/L Anion Gap 8 MEQ/L 8 MEQ/L Estimat Glomerular Filtration Rate 228 ML/MIN 222 ML/MIN White Blood Count 5.9 TH/MM3 5.7 TH/MM3 Red Blood Count 4.20 MIL/MM3 4.21 MIL/MM3 Hemoglobin 12.9 GM/DL 13.4 GM/DL Hematocrit 38.8 % 39.8 % Mean Corpuscular Volume 92.4 FL 94.5 FL Mean Corpuscular Hemoglobin 30.8 PG 31.8 PG Mean Corpuscular Hemoglobin Concent 33.3 % 33.6 % Red Cell Distribution Width 17.5 % 17.3 % Platelet Count 372 TH/MM3 378 TH/MM3 Mean Platelet Volume 8.1 FL 7.9 FL Neutrophils (%) (Auto) 62.1 % 55.3 % Lymphocytes (%) (Auto) 22.5 % 26.1 % Monocytes (%) (Auto) 9.7 % 10.6 % Eosinophils (%) (Auto) 4.3 % 6.9 % Basophils (%) (Auto) 1.4 % 1.1 % Neutrophils # (Auto) 3.7 TH/MM3 3.2 TH/MM3 Lymphocytes # (Auto) 1.3 TH/MM3 1.5 TH/MM3 Monocytes # (Auto) 0.6 TH/MM3 0.6 TH/MM3 Eosinophils # (Auto) 0.3 TH/MM3 0.4 TH/MM3 Basophils # (Auto) 0.1 TH/MM3 0.1 TH/MM3 CBC Comment DIFF FINAL DIFF FINAL Differential Comment Total Protein 5.5 GM/DL Albumin 1.9 GM/DL Phosphorus Level 2.3 MG/DL Magnesium Level 1.4 MG/DL Alkaline Phosphatase 104 U/L Aspartate Amino Transf (AST/SGOT) 23 U/L Alanine Aminotransferase (ALT/SGPT) 10 U/L Total Bilirubin 0.2 MG/DL Hemoglobin A1c 5.1 % Free Thyroxine 1.03 NG/DL Thyroid Stimulating Hormone 3rd Gen 4.310 uIU/ML Objective Remarks GENERAL: Well-nourished well-developed patient in no acute distress SKIN: Warm and dry. Peripheral vascular changes with black necrotic changes in the left and right foot first toe areas, erythematous redness worse over the left dorsum of the foot present on bilateral lower extremities HEAD: Atraumatic. Normocephalic. EYES: Pupils equal and round. No scleral icterus. No injection or drainage. ENT: No nasal bleeding or discharge. Mucous membranes pink and moist. NECK: Trachea midline. No JVD. CARDIOVASCULAR: Regular rate and rhythm. RESPIRATORY: No accessory muscle use. Clear to auscultation. Breath sounds equal bilaterally. GASTROINTESTINAL: Abdomen soft, non-tender, nondistended. Hepatic and splenic margins not palpable. MUSCULOSKELETAL: Extremities without clubbing, cyanosis, or edema. No obvious deformities. NEUROLOGICAL: Awake and alert. No obvious cranial nerve deficits. Motor grossly within normal limits. Five out of 5 muscle strength in the arms and legs. Normal speech. Awake alert and oriented 4 to person, place, time, situation moves all 4 extremities PSYCHIATRIC: Appropriate mood and affect; insight and judgment normal. Medications and IVs Current Medications Lactated Ringer's 1,000 ml @ 30 mls/hr Q24H PRN IV SEE LABEL COMMENTS Last administered on 03/23/18at 09:00; Start 03/23/18 at 08:00; Stop 03/23/18 at 14:08 ; Status DC Sodium Chloride 500 ml @ 30 mls/hr [id number] PRN IV SEE LABEL COMMENTS; Start at 08:00; Stop 03/23/18 at 14:08; Status DC Metoprolol Tartrate (Lopressor) 25 mg ADMINISTRATIVE ASSISTANT PRN PO SEE LABEL COMMENTS; Start 03/23/18 at 08:00; Stop 03/26/18 at 07:59; Status DC Povidone Iodine (Betadine 5% Antisepsis Kit) 1 applic ADMINISTRATIVE ASSISTANT PRN EACH NARE SEE LABEL COMMENTS; Start 03/23/18 at 08:00; Stop 03/26/18 at 07:59; Status DC Chlorhexidine Gluconate (Chlorhexidine 2% Cloth) 3 pack ADMINISTRATIVE ASSISTANT PRN TOPICAL SEE LABEL COMMENTS; Start 03/23/18 at 08:00; Stop 03/26/18 at 07:59; Status DC Heparin Sodium (Porcine) (Heparin Inj) 10,000 units STK-MED ONCE .ROUTE ; Start 03/23/18 at 08:49; Stop 03/23/18 at 08:50; Status DC Cefazolin Sodium/ Dextrose 0 ml @ As Directed STK-MED ONCE .ROUTE ; Start at 08:49; Stop 03/23/18 at 08:50; Status DC Heparin Sodium (Porcine) (Heparin Inj) 10,000 units STK-MED ONCE .ROUTE ; Start 03/23/18 at 08:49; Stop 03/23/18 at 08:50; Status DC Protamine Sulfate (Protamine Sulfate Inj) 50 mg STK-MED ONCE .ROUTE ; Start at 08:49; Stop 03/23/18 at 08:50; Status DC Sodium Chloride 1,000 ml @ 84 mls/hr [id number] IV ; Start 03/23/18 at 10:30; Stop 03/23/18 at 10:49; Status DC Sodium Chloride 1,000 ml @ 100 mls/hr Q10H IV Last administered on 03/27/18at 00:31; Start 03/23/18 at 14:00 Gabapentin (Neurontin) 800 mg QID PO Last administered on 03/27/18at 08:23; Start 03/23/18 at 14:00 Lactobacillus Acidophilus (Lactinex) 1 tab BID PO Last administered on at 08:23; Start 03/23/18 at 21:00 Cephalexin Monohydrate (Keflex) 500 mg Q6HR PO ; Start 03/23/18 at 12:00; Stop 03/23/18 at 12:00; Status DC Nicotine (Habitrol 14 Mg Patch.24 Hr) 1 patch DAILY T-DERMAL Last administered on 03/27/18at 08:22; Start 03/24/18 at 09:00 Acetaminophen/ Hydrocodone Bitart ([place] 5-325 Mg) 1 tab Q4H PRN PO PAIN 4-10 Last administered on 03/23/18at 21:55; Start 03/23/18 at 11:00; Stop 03/26/18 at 11:23; Status DC Cefazolin Sodium 1000 mg/Sodium Chloride 100 ml @ 200 mls/hr Q8H IV Last administered on 03/27/18 05:35; Start 03/23/18 at 14:00 Miscellaneous Information 1 DAILY T-DERMAL Last administered on 03/27/18 08:15 ; Start 03/24/18 at 09:00 Aspirin (Aspirin Chew) 81 mg DAILY CHEW Last administered on 03/27/18 08:23; Start 03/24/18 at 09:00 Acetaminophen/ Hydrocodone Bitart ([place] 7.5-325 Mg) 1 tab Q6H PRN PO PAIN Last administered on 03/26/18 09:23; Start 03/24/18 at 02:45; Stop 03/26/18 at 11:23; Status DC Calcium Carbonate (Oscal) 500 mg Q12HR PO Last administered on 03/27/18 08:23 ; Start 03/24/18 at 21:00 Enoxaparin Sodium (Lovenox Inj) 40 mg Q24H SQ Last administered on 03/26/18 14 :48; Start 03/24/18 at 13:00 Lactic Acid (Lac-Hydrin 12% Lotion) 1 applic BID TOPICAL Last administered on 09:00; Start 03/24/18 at 14:00 Sodium Chloride (NS Flush) 2 ml UNSCH PRN IV FLUSH FLUSH AFTER USING IV ACCESS ; Start 03/26/18 at 11:30 Sodium Chloride (NS Flush) 2 ml BID IV FLUSH Last administered on 03/27/18at 09: 00; Start 03/26/18 at 21:00 Acetaminophen (Tylenol) 650 mg Q4H PRN PO TEMP > 100.4; Start 03/26/18 at 11:30 Ondansetron HCl (Zofran Odt) 4 mg Q6H PRN PO NAUSEA OR VOMITING; Start at 11:45 Metoclopramide HCl (Reglan Inj) 5 mg Q6H PRN IV PUSH NAUSEA OR VOMITING; Start 03/26/18 at 11:30 Acetaminophen (Tylenol) 650 mg Q6H PRN PO PAIN SCALE 1 TO 2; Start 03/26/18 at 11:30 Oxycodone/ Acetaminophen (Percocet 5-325 Mg) 1 tab Q6H PRN PO PAIN SCALE 3 TO 5; Start 03/26/18 at 11:30 Oxycodone/ Acetaminophen (Percocet 10-325 Mg) 1 tab Q6H PRN PO PAIN SCALE 6 TO 10 Last administered on 03/26/18at 20:51; Start 03/26/18 at 11:30 Morphine Sulfate (Morphine Inj) 2 mg Q3H PRN IV PUSH Pain 3-5; if unable to take PO; Start 03/26/18 at 11:30 Morphine Sulfate (Morphine Inj) 4 mg Q3H PRN IV PUSH Pain 6-10;if unable to take PO Last administered on 03/27/18at 08:23; Start 03/26/18 at 11:30 Morphine Sulfate (Morphine Inj) 4 mg Q3H PRN IV PUSH BREAKTHROUGH PAIN; Start 03/26/18 at 11:30 Naloxone HCl (Narcan Inj) 0.4 mg UNSCH PRN IV PUSH SEE LABEL COMMENTS; Start at 11:30 Senna/Docusate Sodium (Felicia-Colace) 1 tab BID PO Last administered on at 08:23; Start 03/26/18 at 21:00 Magnesium Hydroxide (Milk Of Magnesia Liq) 30 ml Q12H PRN PO Mild constipation ; Start 03/26/18 at 11:30 Sennosides (Senokot) 17.2 mg Q12H PRN PO Moderate constipation; Start 03/26/18 at 11:30 Bisacodyl (Dulcolax Supp) 10 mg DAILY PRN RECTAL SEVERE CONSITIPATION; Start at 11:30 Lactulose (Lactulose Liq) 30 ml DAILY PRN PO SEVERE CONSITIPATION; Start at 11:30 Magnesium Sulfate/ Dextrose 100 ml @ 100 mls/hr Q1H IV Last administered on at 16:03; Start 03/26/18 at 11:30; Stop 03/26/18 at 13:29; Status DC Potassium Phosphate 30 mmol/ Sodium Chloride 260 ml @ 43.333 mls/ hr ONCE ONCE IV Last administered on 03/26/18at 17:26; Start 03/26/18 at 11:30; Stop at 17:29; Status DC Potassium Chloride (KCl) 40 meq ONCE ONCE PO Last administered on 03/26/18at 14 :49; Start 03/26/18 at 11:30; Stop 03/26/18 at 11:42; Status DC Potassium Chloride (KCl) 40 meq ONCE ONCE PO Last administered on 03/26/18at 13 :30; Start 03/26/18 at 13:30; Stop 03/26/18 at 13:31; Status DC Lactated Ringer's 1,000 ml @ 30 mls/hr Q24H PRN IV SEE LABEL COMMENTS; Start at 02:45; Stop 03/30/18 at 02:44 Sodium Chloride 500 ml @ 30 mls/hr [id number] PRN IV SEE LABEL COMMENTS; Start at 02:45; Stop 03/30/18 at 02:44 Metoprolol Tartrate (Lopressor) 25 mg ADMINISTRATIVE ASSISTANT PRN PO SEE LABEL COMMENTS; Start 03/27/18 at 02:45; Stop 03/30/18 at 02:44 Povidone Iodine (Betadine 5% Antisepsis Kit) 1 applic ADMINISTRATIVE ASSISTANT PRN EACH NARE SEE LABEL COMMENTS; Start 03/27/18 at 02:45; Stop 03/30/18 at 02:44 Chlorhexidine Gluconate (Chlorhexidine 2% Cloth) 3 pack ADMINISTRATIVE ASSISTANT PRN TOPICAL SEE LABEL COMMENTS; Start 03/27/18 at 02:45; Stop 03/30/18 at 02:44 A/P Problem List: (1) Hyponatremia ICD Code: E87.1 - Hypo-osmolality and hyponatremia (2) Peripheral vascular disease ICD Code: I73.9 - Peripheral vascular disease, unspecified Assessment and Plan -1. Hyponatremia Levels improved On NS- check urine/ plasma osmolality and urine sodium- check TSH- will monitor the sodium level closely. 2. PVD-previously scheduled for left fem-pop bypass surgery- surgery was cancelled yesterday due to hyponatremia; will be rescheduled when the sodium level improves- vascular surgery consulted. hold coumadin for planned surgery. 3. Cellulitis of both lower extremities; evaluated by podiatry and ID recent admission ( recommended Keflex as outpatient) ; will start on Ancef for now- will consult podiatry ( ). 4. DVT prophylaxis; will start on subq Lovenox when INR < 2. Today's INR 1.3. Coumadin currently on hold. FOR LEFT FEM-POP 6-25 AM LABS ADJUST PAIN MEDS HYPOKALEMIA WILL REPLACE HYPOMAG WILL REPLACE Discharge Planning Pending surgical clearance Dhruv Tobias DO Mar 27, 2018 11:00
[2018-03-27] MEDS ORDERED: ROCURONIUM INJ 50 MG/5 ML SYRINGE IV PUSH ONE (12:00)
[2018-03-27] MEDS ORDERED: METOPROLOL TARTRATE 5 MG/5 ML VIAL IV ONE (12:00)
[2018-03-27] MEDS ORDERED: ceFAZolin INJ 1,000 MG VIAL IV ONE ×2 (12:00→19:34)
[2018-03-27] MEDS ORDERED: ONDANSETRON HCL 4 MG/2 ML VIAL IV PUSH ONE (12:00)
[2018-03-27] MEDS ORDERED: PHENYLEPH/NS 1000 MCG/10 ML SYR IV ONE (12:00)
[2018-03-27] MEDS ORDERED: GLYCOPYRROLATE 1 MG/5 ML SYRINGE IV PUSH ONE (12:00)
[2018-03-27] MEDS ORDERED: PROPOFOL 200 MG/20 ML AMP IV ONE (12:00)
[2018-03-27] MEDS ORDERED: LIDOCAINE HCL 1% PF 5 ML SYRINGE OTHER ONE (12:00)
[2018-03-27] MEDS ORDERED: NEOSTIGMINE 5 MG/5 ML SYRINGE IV PUSH ONE (12:00)
[2018-03-27 12:15] LABS: AST (GOT) 24 U/L (15-37); BLOOD UREA NITROGEN 3 MG/DL (7-18); CHLORIDE 96 MEQ/L (98-107); CREATININE 0.39 MG/DL (0.60-1.30); GLOMERULAR FILTRATION RATE 222 ML/MIN (>89); GLUCOSE,RANDOM 65 MG/DL (74-106); SODIUM (NA) 132 MEQ/L (136-145)
[2018-03-27 12:22] LABS: ALKALINE PHOSPHATASE 104 U/L (45-117); ALT (GPT) 13 U/L (12-78); PHOSPHORUS 3.3 MG/DL (2.5-4.9); TOTAL BILIRUBIN ADULT 0.2 MG/DL (0.2-1.0); TOTAL PROTEIN 5.9 GM/DL (6.4-8.2)
[2018-03-27 12:46] VITALS: BP 165/80; PULSE 86; RESP 17; TEMP 97.7; O2SAT 94
[2018-03-27] MEDS: ENOXAPARIN SODIUM 40 MG/0.4 ML SYRINGE SQ SCH (13:00)
--- NOTE | 2018-03-27 13:34 | OTSOAPIP ---
REATTEMPTED TO COMPLETE OT EVALUATION AGAIN THIS DATE. PATIENT STATED, "WHAT FOR? I CAN DO EVERYTHING ON MY OWN AND I HAVE EVERYTHING I NEED AT HOME. I'M WAITING TO GO TO SURGERY AND I'M NOT HAPPY" (REGARDING WAITING A LONG TIME TO GO TO SURGERY). WILL CONTINUE TO DEFER EVALUATION AND REATTEMPT ONE LAST TIME TOMORROW POST SURGERY. IF PATIENT CONTINUES TO DECLINE EVALUATION, OCCUPATIONAL THERAPY WILL SIGN OFF. INTERDISCIPLINARY COMMUNICATION: REVIEWED ELECTRONIC MEDICAL RECORD Therapist: BEATRIZ Kumar/Jessica Signature on file
[2018-03-27] MEDS ORDERED: HEPARIN SODIUM - IV 10,000 UNITS/10 ML VIAL ONE (14:37)
[2018-03-27] MEDS ORDERED: fentaNYL CITRATE 250 MCG/5 ML AMP ONE (14:37)
[2018-03-27] MEDS ORDERED: PROTAMINE SULFATE 50 MG/5 ML VIAL ONE (14:37)
[2018-03-27] MEDS ORDERED: HEPARIN SODIUM - SQ 10,000 UNITS/ML VIAL ONE (14:37)
[2018-03-27] MEDS ORDERED: MIDAZOLAM HCL 2 MG/2 ML VIAL ONE (19:00)
[2018-03-27] MEDS ORDERED: DO NOT ADM ANY ANTICOAGULANT DRUGS PRN (21:00)
[2018-03-27] MEDS ORDERED: *morphine SULFATE 4 MG/ML PERIprocedure ONLY ONE (21:03)
[2018-03-27 22:38] VITALS: PULSE 76
[2018-03-27 23:29] VITALS: BP 105/53; PULSE 71; PULSE 74; TEMP 97.7; O2SAT 93
[2018-03-28] VITALS (29 sets, daily range): BP systolic 123–151; BP diastolic 64–73; PULSE 67–114; RESP 18; TEMP 98.1–98.8; O2SAT 93–98
[2018-03-28] MEDS: MORPHINE SULFATE 4 MG/ML INJ IV PUSH PRN ×2 (00:25→05:10)
[2018-03-28 05:42] LABS: AUTOMATED NEUTROPHIL # 5.1 TH/MM3 (1.8-7.7); BASOPHIL # 0.1 TH/MM3 (0-0.2); BASOPHIL % 0.8 % (0.0-2.0); EOSINOPHIL # 0.2 TH/MM3 (0-0.4); EOSINOPHIL % 2.1 % (0.0-4.0); HEMATOCRIT 36.8 % (39.0-51.0); HEMOGLOBIN 12.2 GM/DL (13.0-17.0); LYMPH % 17.4 % (9.0-44.0); LYMPHOCYTE # 1.2 TH/MM3 (1.0-4.8); MEAN CELL VOLUME 93.3 FL (80.0-100.0); MEAN CORPUSCULAR HEMOGLOBIN 30.8 PG (27.0-34.0); MEAN PLATELET VOLUME 7.8 FL (7.0-11.0); MONO % 8.8 % (0.0-8.0); MONOCYTE # 0.6 TH/MM3 (0-0.9); NEUT % 70.9 % (16.0-70.0); PLATELET COUNT 385 TH/MM3 (150-450); RED BLOOD COUNT 3.95 MIL/MM3 (4.50-5.90); RED CELL DISTRIBUTION WIDTH 17.1 % (11.6-17.2); WHITE BLOOD COUNT 7.2 TH/MM3 (4.0-11.0)
[2018-03-28 05:56] LABS: ALBUMIN 1.9 GM/DL (3.4-5.0); AST (GOT) 16 U/L (15-37); BICARBONATE 29.3 MEQ/L (21.0-32.0); BLOOD UREA NITROGEN 5 MG/DL (7-18); CALCIUM 7.8 MG/DL (8.5-10.1); CHLORIDE 96 MEQ/L (98-107); CREATININE 0.43 MG/DL (0.60-1.30); GLOMERULAR FILTRATION RATE 198 ML/MIN (>89); GLUCOSE,RANDOM 86 MG/DL (74-106); MAGNESIUM 1.8 MG/DL (1.5-2.5); SODIUM (NA) 132 MEQ/L (136-145)
[2018-03-28 06:00] LABS: ALKALINE PHOSPHATASE 99 U/L (45-117); ALT (GPT) 9 U/L (12-78); PHOSPHORUS 3.8 MG/DL (2.5-4.9); TOTAL BILIRUBIN ADULT 0.2 MG/DL (0.2-1.0); TOTAL PROTEIN 5.4 GM/DL (6.4-8.2)
--- NOTE | 2018-03-28 06:31 | MP ---
cc: Bertram Luciano MD DATE OF OPERATION: 03/27/2018 PREOPERATIVE DIAGNOSIS: Ischemia of both legs, left more than right, SFA occlusion peripheral severe vascular disease. POSTOPERATIVE DIAGNOSIS: Ischemia of both legs, left more than right, SFA occlusion peripheral severe vascular disease. PROCEDURE PERFORMED: Left femoropopliteal bypass. SURGEON: Bertram Luciano MD ANESTHESIA: General. ESTIMATED BLOOD LOSS: 100 mL. PROCEDURE IN DETAIL: The patient prepped and draped in the usual fashion. First, a left groin incision was made, deepened down to the level of the neurovascular bundle. Common femoral, deep femoral, superficial femoral arteries are isolated and proximal external iliac artery is isolated. Each is encircled with a vessel loop and now the attention is directed toward the distal end. Incisions made in the medial thigh just proximal to the knee, deepened down to the level of the neurovascular bundle and then the popliteal artery was carefully isolated with sharp and blunt dissection with vessel loops placed around it. I isolated the vessel very distally considering the fact that proximally it is closed and the very distal end of the popliteal artery is open as it goes into the trifurcation. I could see the trifurcation vessels at this point coming off and even here, the vessel is very diseased. The patient was given 5000 units of heparin and then an 8 mm ringed [place] graft is pulled from proximal to distal using a Park-Wick tunneler. The popliteal artery is now attended. Vessel loops were pulled up and then vessels opened longitudinally with an 11 blade and Hayes scissors. Distally, there is backbleeding, but proximally there is a large atherosclerotic plaque occluding the vessel. Part of this is removed in order to gain some more control of the vessel and gain the length for the anastomosis. This was done by dissecting the plaque with a Frederick dissector and then removing it. There is pretty good bleeding back from the vessel at this point. The graft is now cut in an oblique angle with the 11 blade and the anastomosis between the PTFE graft and the popliteal artery was created with a running 5-0 Prolene. Once this was completed, the graft was flushed with heparinized saline and clamped while allowing the blood flow in the chitina vessels to continue. The proximal area was now attended. The Satinsky clamp is placed proximally and then a profunda clamp on the deep femoral artery. The vessel is opened longitudinally with Hayes scissors. There was a huge plaque in the vessel. This was dissected with a [place] dissector and removed. Anastomosis is now created between the graft under a very spatulated angle in the common femoral and distal external iliac artery using a 5-0 running Prolene. Once this was completed, blood flow was reestablished in the usual order and fashion. Meticulous hemostasis assured. At this point, the patient has a bounding pulse in the popliteal distal artery and trifurcation which is checked with Doppler. Foot warms up. I do not believe the patient ever had an actually dopplerable pulse since I saw him distally; however, now there is a faint posterior tibial pulse present. The area irrigated with copious amounts of saline and then the incision was closed with 0 Vicryl in layers and 4-0 Monocryl for the skin. The patient tolerated the procedure well. MD MEHNAZ Solorzano/YARITZA , 09:06 PM , 06:29 AM
--- NOTE | 2018-03-28 07:42 | HHI.PR ---
Subjective Remarks in no acute distress. has some pain to the left foot. otherwise no other complaints. d/w the RN and no acute issues over night. Objective Vitals Vital Signs Date Time Temp Pulse Resp B/P (MAP) Pulse Ox O2 Delivery O2 Flow Rate FiO2 03/28/18 06:06 75 03/28/18 05:24 79 03/28/18 05:23 95 Nasal Cannula 4.00 03/28/18 05:22 98.1 80 151/70 (97) 95 03/28/18 04:31 84 03/28/18 03:21 73 03/28/18 02:35 69 03/28/18 01:02 70 03/28/18 00:16 93 Nasal Cannula 4.00 03/28/18 00:08 67 03/27/18 23:29 97.7 74 105/53 (70) 93 03/27/18 23:29 71 03/27/18 22:38 76 03/27/18 21:30 71 13 125/67 (86) 92 Nasal Cannula 4 03/27/18 21:15 69 10 118/62 (80) 94 Nasal Cannula 4 03/27/18 21:00 97.3 70 22 128/68 (88) 93 Nasal Cannula 4 03/27/18 20:45 73 16 133/64 (87) 94 Nasal Cannula 4 03/27/18 20:30 76 15 159/79 (105) 91 Nasal Cannula 4 03/27/18 20:00 75 10 131/73 (92) 100 Simple Mask 10 03/27/18 19:45 82 10 133/71 (91) 84 Simple Mask 10 03/27/18 19:44 97.5 82 10 138/75 (96) 87 Nasal Cannula 5 03/27/18 12:46 97.7 86 17 165/80 (108) 94 03/27/18 08:00 97.3 86 18 144/79 (100) 97 I/O 03/27/18 03/27/18 03/27/18 03/28/18 03/28/18 03/28/18 07:00 15:00 23:00 07:00 15:00 23:00 Intake Total 1820 ml 2300 ml 1340 ml Output Total 1950 ml 1400 ml 1300 ml 425 ml Balance -130 ml -1400 ml 1000 ml 915 ml Intake Oral 720 ml 0 ml 240 ml IV Total 1100 ml 300 ml 1100 ml Other 2000 ml Output Urine Total 1950 ml 1400 ml 1100 ml 425 ml Estimated Blood Loss 200 ml # Bowel Movements 0 Result Diagram: 03/28/1843103/28/18431 Objective Remarks GENERAL: This is a well-nourished, well-developed patient, in no apparent distress. CARDIOVASCULAR: Regular rate and regular rhythm without murmurs, gallops, or rubs. RESPIRATORY: Clear to auscultation. Breath sounds equal bilaterally. No wheezes , rales, or rhonchi. GASTROINTESTINAL: Abdomen soft, non-tender, nondistended. 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 Moves all ext x4 Procedures left fem-pop bypass. Medications and IVs Inpatient Medications Acetaminophen (Tylenol) 650 mg Q6H PRN PO PAIN SCALE 1 TO 2; Start 03/26/18 at 11:30 Acetaminophen/ Hydrocodone Bitart ([place] 5-325 Mg) 1 tab Q4H PRN PO PAIN 4-10 Last administered on 03/23/18at 21:55; Start 03/23/18 at 11:00; Stop 03/26/18 at 11:23; Status DC Acetaminophen/ Hydrocodone Bitart ([place] 7.5-325 Mg) 1 tab Q6H PRN PO PAIN Last administered on 03/26/18at 09:23; Start 03/24/18 at 02:45; Stop 03/26/18 at 11:23; Status DC Aspirin (Aspirin Chew) 81 mg DAILY CHEW Last administered on 03/27/18at 08:23; Start 03/24/18 at 09:00 Bisacodyl (Dulcolax Supp) 10 mg DAILY PRN RECTAL SEVERE CONSITIPATION; Start at 11:30 Calcium Carbonate (Oscal) 500 mg Q12HR PO Last administered on 03/27/18at 22:06 ; Start 03/24/18 at 21:00 Cefazolin Sodium (Ancef Inj) 2,000 mg ONCE ONCE IV Last administered on at 17:06; Start 03/27/18 at 19:34; Stop 03/27/18 at 19:35; Status DC Cefazolin Sodium 1000 mg/Sodium Chloride 100 ml @ 200 mls/hr Q8H IV Last administered on 03/28/18at 05:10; Start 03/23/18 at 14:00 Cephalexin Monohydrate (Keflex) 500 mg Q6HR PO ; Start 03/23/18 at 12:00; Stop 03/23/18 at 12:00; Status DC Chlorhexidine Gluconate (Chlorhexidine 2% Cloth) 3 pack SUPERVISOR POWDERED METAL PRN TOPICAL SEE LABEL COMMENTS; Start 03/27/18 at 02:45; Stop 03/30/18 at 02:44 Enoxaparin Sodium (Lovenox Inj) 40 mg Q24H SQ Last administered on 03/26/18at 14 :48; Start 03/24/18 at 13:00 Gabapentin (Neurontin) 800 mg QID PO Last administered on 03/27/18at 22:06; Start 03/23/18 at 14:00 Lactated Ringer's 1,000 ml @ 30 mls/hr Q24H PRN IV SEE LABEL COMMENTS; Start at 02:45; Stop 03/30/18 at 02:44 Lactic Acid (Lac-Hydrin 12% Lotion) 1 applic BID TOPICAL Last administered on at 09:00; Start 03/24/18 at 14:00 Lactobacillus Acidophilus (Lactinex) 1 tab BID PO Last administered on at 22:05; Start 03/23/18 at 21:00 Lactulose (Lactulose Liq) 30 ml DAILY PRN PO SEVERE CONSITIPATION; Start at 11:30 Magnesium Hydroxide (Milk Of Magnesia Liq) 30 ml Q12H PRN PO Mild constipation ; Start 03/26/18 at 11:30 Magnesium Sulfate/ Dextrose 100 ml @ 100 mls/hr Q1H IV Last administered on at 16:03; Start 03/26/18 at 11:30; Stop 03/26/18 at 13:29; Status DC Metoclopramide HCl (Reglan Inj) 5 mg Q6H PRN IV PUSH NAUSEA OR VOMITING; Start 03/26/18 at 11:30 Metoprolol Tartrate (Lopressor) 25 mg SUPERVISOR POWDERED METAL PRN PO SEE LABEL COMMENTS; Start 03/27/18 at 02:45; Stop 03/30/18 at 02:44 Miscellaneous Information (Misc Nursing Information) ALL NURSING DEPARTME... UNSCH PRN .XX SEE LABEL COMMENTS; Start 03/27/18 at 21:00; Stop 03/28/18 at 20: 59 Morphine Sulfate (Morphine Inj) 4 mg Q3H PRN IV PUSH BREAKTHROUGH PAIN; Start 03/26/18 at 11:30 Naloxone HCl (Narcan Inj) 0.4 mg UNSCH PRN IV PUSH SEE LABEL COMMENTS; Start at 11:30 Nicotine (Habitrol 14 Mg Patch.24 Hr) 1 patch DAILY T-DERMAL Last administered on 03/27/18at 08:22; Start 03/24/18 at 09:00 Ondansetron HCl (Zofran Odt) 4 mg Q6H PRN PO NAUSEA OR VOMITING; Start at 11:45 Oxycodone/ Acetaminophen (Percocet 5-325 Mg) 1 tab Q6H PRN PO PAIN SCALE 3 TO 5; Start 03/26/18 at 11:30 Oxycodone/ Acetaminophen (Percocet 10-325 Mg) 1 tab Q6H PRN PO PAIN SCALE 6 TO 10 Last administered on 03/26/18at 20:51; Start 03/26/18 at 11:30 Potassium Phosphate 30 mmol/ Sodium Chloride 260 ml @ 43.333 mls/ hr ONCE ONCE IV Last administered on 03/26/18at 17:26; Start 03/26/18 at 11:30; Stop at 17:29; Status DC Potassium Chloride (KCl) 40 meq ONCE ONCE PO Last administered on 03/26/18at 13 :30; Start 03/26/18 at 13:30; Stop 03/26/18 at 13:31; Status DC Povidone Iodine (Betadine 5% Antisepsis Kit) 1 applic SUPERVISOR POWDERED METAL PRN EACH NARE SEE LABEL COMMENTS; Start 03/27/18 at 02:45; Stop 03/30/18 at 02:44 Senna/Docusate Sodium (Felicia-Colace) 1 tab BID PO Last administered on at 22:06; Start 03/26/18 at 21:00 Sennosides (Senokot) 17.2 mg Q12H PRN PO Moderate constipation; Start 03/26/18 at 11:30 Sodium Chloride 500 ml @ 30 mls/hr [id number] PRN IV SEE LABEL COMMENTS; Start at 02:45; Stop 03/30/18 at 02:44 Sodium Chloride (NS Flush) 2 ml BID IV FLUSH Last administered on 03/27/18at 20: 30; Start 03/26/18 at 21:00 A/P Problem List: (1) Hyponatremia ICD Code: E87.1 - Hypo-osmolality and hyponatremia (2) Peripheral vascular disease ICD Code: I73.9 - Peripheral vascular disease, unspecified Assessment and Plan A/P -1. Hyponatremia Levels improved On NS- 2. PVD- s/p left fem-pop bypass- continue with pain control- management per vascular surgery. 3. Cellulitis of both lower extremities with ischemia of the left hallux and forefoot; evaluated by podiatry and ID recent admission ( recommended Keflex as outpatient) ; continue Ancef. podiatry consult appreciated; considering debridement vs amputation. 4. DVT prophylaxis; resume subq Lovenox- when ok with surgery. Discharge Planning w/u in progress- not ready for discharge yet. Mor Prieto MD Mar 28, 2018 07:42
[2018-03-28] MEDS: DOCUSATE SODIUM 50 MG/SENNA 8.6 MG TAB PO SCH ×2 (08:14→21:37)
[2018-03-28] MEDS: SODIUM CHLORIDE 0.9% FLUSH 10 ML FLUSH IV FLUSH SCH ×2 (08:15→21:38)
[2018-03-28] MEDS: CALCIUM CARBONATE 1.25 GM (CA 500 MG) TAB PO SCH ×2 (08:15→21:37)
[2018-03-28] MEDS: GABAPENTIN 400 MG CAP PO SCH ×4 (08:15→21:37)
[2018-03-28] MEDS: oxyCODONE/ACETAMINOPHEN 10 MG/325 MG TAB PO PRN ×3 (08:15→21:38)
[2018-03-28] MEDS: LACTOBACILLUS ACIDOPHILUS TAB PO SCH ×2 (08:15→21:37)
[2018-03-28] MEDS: ASPIRIN 81 MG CHEW TAB CHEW SCH (08:15)
[2018-03-28] MEDS: REMOVE OLD NICOTINE PATCH T-DERMAL SCH (08:17)
[2018-03-28] MEDS: NICOTINE 14 MG/24 HR PATCH T-DERMAL SCH (08:17)
[2018-03-28] MEDS: LACTIC ACID (AMMONIUM LACTATE) 12% LOTION 225 GM BTL TOPICAL SCH ×2 (08:19→21:38)
[2018-03-28] MEDS: ENOXAPARIN SODIUM 40 MG/0.4 ML SYRINGE SQ SCH (12:40)
[2018-03-28] MEDS: SODIUM CHLOR 0.9% 1000 ML INJ 1,000 ML IV SCH (13:51)
--- NOTE | 2018-03-28 14:17 | PD.POD ---
Subjective Podiatric Problems Pt states that he is having some discomfort in the left leg from recent vascular surgery but denies any pain in the foot. He states that he has elected not to have surgery today and wants to wait and see how the eschars progress naturally. He denies any n/v/f/h/c/sob. Pain score: 4 Past Med/Surg/Social History Social History Smoking Status: Current Every Day Smoker Objective Vital Signs Vital Signs Date Time Temp Pulse Resp B/P (MAP) Pulse Ox O2 Delivery O2 Flow Rate FiO2 03/28/18 14:00 95 03/28/18 13:00 110 03/28/18 12:00 86 03/28/18 11:07 98.5 84 18 131/64 (86) 98 03/28/18 11:07 98 Nasal Cannula 3.00 03/28/18 11:00 80 03/28/18 10:00 90 03/28/18 09:00 101 03/28/18 08:00 98 03/28/18 07:15 93 Nasal Cannula 3.00 03/28/18 07:15 98.3 76 18 130/69 (89) 93 03/28/18 07:00 68 03/28/18 06:06 75 03/28/18 05:24 79 03/28/18 05:23 95 Nasal Cannula 4.00 03/28/18 05:22 98.1 80 151/70 (97) 95 03/28/18 04:31 84 03/28/18 03:21 73 03/28/18 02:35 69 03/28/18 01:02 70 03/28/18 00:16 93 Nasal Cannula 4.00 03/28/18 00:08 67 03/27/18 23:29 97.7 74 105/53 (70) 93 03/27/18 23:29 71 03/27/18 22:38 76 03/27/18 21:30 71 13 125/67 (86) 92 Nasal Cannula 4 03/27/18 21:15 69 10 118/62 (80) 94 Nasal Cannula 4 03/27/18 21:00 97.3 70 22 128/68 (88) 93 Nasal Cannula 4 03/27/18 20:45 73 16 133/64 (87) 94 Nasal Cannula 4 03/27/18 20:30 76 15 159/79 (105) 91 Nasal Cannula 4 03/27/18 20:00 75 10 131/73 (92) 100 Simple Mask 10 03/27/18 19:45 82 10 133/71 (91) 84 Simple Mask 10 03/27/18 19:44 97.5 82 10 138/75 (96) 87 Nasal Cannula 5 Coded Allergies: No Known Allergies (Unverified , 03/23/18) Physical Exam Remarks No changes from consultation evaluation. Pulses in left foot are not palpable but overall perfusion does appear improved. 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 He is well aware that is places him at an increased risk for infection and potentially limb amputation. He would like to monitor the area and treat conservatively. He states that he wants to avoid multiple surgeries and if he developed an infection that requires amputation he would elect for a BKA or AKA. We spoke at length regarding all possible outcomes. -No dressing needed, area to be swabbed daily with betadine and kept dry -ok to d/c from a podiatry standpoint, no further intervention warranted Wendi Reich DPM Mar 28, 2018 14:17
--- NOTE | 2018-03-28 15:59 | PD.CAR.PN ---
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 Scheduled for the left femoropopliteal bypass today. On preop studies patient has significant hyponatremia with sodium of 1 20 mEq/ L. while mild hyponatremia is not uncommon in hospital patients doing an elective surgery with this level of hyponatremia will be quite unwise and potentially dangerous. Therefore patient needs to be admitted, hyponatremia corrected and patient will be scheduled for surgery once sodium within normal range, likely Tuesday. In addition, patient forgot to stop coumadin as instructed in pre-op phase. INR 2.0. Will wait till INR comes down as well. Discussed with hospitalist nurse practitioner. Patient will be admitted to medicine and I will follow. 03/25/2018 Patient with improving Na level. INR normalized. For left fem-pop Tuesday03/26/2018 Patient doing much better Sodium corrected Hemoglobin stable For left femoropopliteal bypass tomorrow 03/28/2018 Patient status post left femoral-popliteal bypass and endarterectomy. Foot is warm and incisions are clean and dry There is strong dopplerable pulse in the graft and popliteal artery Would proceed with podiatry surgery as per Dr. Reich and after that patient can be discharged from my point any time Objective: Vital Signs Date Time Temp Pulse Resp B/P (MAP) Pulse Ox O2 Delivery O2 Flow Rate FiO2 03/28/18 15:07 97 Nasal Cannula 3.00 03/28/18 15:07 98.6 98 18 131/67 (88) 97 03/28/18 15:00 106 03/28/18 14:00 95 03/28/18 13:00 110 03/28/18 12:00 86 03/28/18 11:07 98.5 84 18 131/64 (86) 98 03/28/18 11:07 98 Nasal Cannula 3.00 03/28/18 11:00 80 03/28/18 10:00 90 03/28/18 09:00 101 03/28/18 08:00 98 03/28/18 07:15 93 Nasal Cannula 3.00 03/28/18 07:15 98.3 76 18 130/69 (89) 93 03/28/18 07:00 68 03/28/18 06:06 75 03/28/18 05:24 79 03/28/18 05:23 95 Nasal Cannula 4.00 03/28/18 05:22 98.1 80 151/70 (97) 95 03/28/18 04:31 84 03/28/18 03:21 73 03/28/18 02:35 69 03/28/18 01:02 70 03/28/18 00:16 93 Nasal Cannula 4.00 03/28/18 00:08 67 03/27/18 23:29 97.7 74 105/53 (70) 93 03/27/18 23:29 71 03/27/18 22:38 76 03/27/18 21:30 71 13 125/67 (86) 92 Nasal Cannula 4 03/27/18 21:15 69 10 118/62 (80) 94 Nasal Cannula 4 03/27/18 21:00 97.3 70 22 128/68 (88) 93 Nasal Cannula 4 03/27/18 20:45 73 16 133/64 (87) 94 Nasal Cannula 4 03/27/18 20:30 76 15 159/79 (105) 91 Nasal Cannula 4 03/27/18 20:00 75 10 131/73 (92) 100 Simple Mask 10 03/27/18 19:45 82 10 133/71 (91) 84 Simple Mask 10 03/27/18 19:44 97.5 82 10 138/75 (96) 87 Nasal Cannula 5 Labs: Laboratory Tests Test 03/28/18 04:32 White Blood Count 7.2 TH/MM3 (4.0-11.0) Red Blood Count 3.95 MIL/MM3 (4.50-5.90) Hemoglobin 12.2 GM/DL (13.0-17.0) Hematocrit 36.8 % (39.0-51.0) Mean Corpuscular Volume 93.3 FL (80.0-100.0) Mean Corpuscular Hemoglobin 30.8 PG (27.0-34.0) Mean Corpuscular Hemoglobin Concent 33.0 % (32.0-36.0) Red Cell Distribution Width 17.1 % (11.6-17.2) Platelet Count 385 TH/MM3 (150-450) Mean Platelet Volume 7.8 FL (7.0-11.0) Neutrophils (%) (Auto) 70.9 % (16.0-70.0) Lymphocytes (%) (Auto) 17.4 % (9.0-44.0) Monocytes (%) (Auto) 8.8 % (0.0-8.0) Eosinophils (%) (Auto) 2.1 % (0.0-4.0) Basophils (%) (Auto) 0.8 % (0.0-2.0) Neutrophils # (Auto) 5.1 TH/MM3 (1.8-7.7) Lymphocytes # (Auto) 1.2 TH/MM3 (1.0-4.8) Monocytes # (Auto) 0.6 TH/MM3 (0-0.9) Eosinophils # (Auto) 0.2 TH/MM3 (0-0.4) Basophils # (Auto) 0.1 TH/MM3 (0-0.2) CBC Comment DIFF FINAL Differential Comment Blood Urea Nitrogen 5 MG/DL (7-18) Creatinine 0.43 MG/DL (0.60-1.30) Random Glucose 86 MG/DL (74-106) Total Protein 5.4 GM/DL (6.4-8.2) Albumin 1.9 GM/DL (3.4-5.0) Calcium Level 7.8 MG/DL (8.5-10.1) Phosphorus Level 3.8 MG/DL (2.5-4.9) Magnesium Level 1.8 MG/DL (1.5-2.5) Alkaline Phosphatase 99 U/L (45-117) Aspartate Amino Transf (AST/SGOT) 16 U/L (15-37) Alanine Aminotransferase (ALT/SGPT) 9 U/L (12-78) Total Bilirubin 0.2 MG/DL (0.2-1.0) Sodium Level 132 MEQ/L (136-145) Potassium Level 4.7 MEQ/L (3.5-5.1) Chloride Level 96 MEQ/L (98-107) Carbon Dioxide Level 29.3 MEQ/L (21.0-32.0) Anion Gap 7 MEQ/L (5-15) Estimat Glomerular Filtration Rate 198 ML/MIN (>89) Result Diagram: 03/28/18 0432 03/28/18 0432 Bertram Luciano MD Mar 28, 2018 15:59
[2018-03-29] VITALS (12 sets, daily range): BP systolic 160–184; BP diastolic 89; PULSE 82–112; RESP 18–20; TEMP 98.9–99; O2SAT 93–97
[2018-03-29] MEDS: oxyCODONE/ACETAMINOPHEN 5 MG/325 MG TAB PO PRN ×2 (01:45→08:47)
[2018-03-29] MEDS: SODIUM CHLOR 0.9% 1000 ML INJ 1,000 ML IV SCH ×2 (01:49→10:00)
[2018-03-29] MEDS: ASPIRIN 81 MG CHEW TAB CHEW SCH (08:47)
[2018-03-29] MEDS: DOCUSATE SODIUM 50 MG/SENNA 8.6 MG TAB PO SCH (08:49)
[2018-03-29] MEDS: LACTOBACILLUS ACIDOPHILUS TAB PO SCH (08:49)
[2018-03-29] MEDS: CALCIUM CARBONATE 1.25 GM (CA 500 MG) TAB PO SCH (08:49)
[2018-03-29] MEDS: SODIUM CHLORIDE 0.9% FLUSH 10 ML FLUSH IV FLUSH SCH (08:50)
[2018-03-29] MEDS: GABAPENTIN 400 MG CAP PO SCH (08:50)
[2018-03-29] MEDS: NICOTINE 14 MG/24 HR PATCH T-DERMAL SCH (08:51)
[2018-03-29] MEDS: LACTIC ACID (AMMONIUM LACTATE) 12% LOTION 225 GM BTL TOPICAL SCH (09:00)
[2018-03-29] MEDS: REMOVE OLD NICOTINE PATCH T-DERMAL SCH (09:00)
--- NOTE | 2018-03-29 09:53 | HHI.PR ---
Subjective Remarks patient is a 68 y/o male with history of PVD,recently diagnosed and treated for cellulitis of both legs was scheduled for left fem-pop bypass today . however the surgery was cancelled after he was found to have a sodium level of 120. he was just admitted to the hospital for cellulitis of both lower extremities. he was evaluated by ID, podiatry and vascular surgery. he was discharged on po Keflex per ID recommendations. he was found to have PVD with bilateral SFA occlusions. the patient decided to go home at the time. he was brought back for elective surgery today. at the time of my evaluation he was in no distress with no reported headache, nausea, vomiting- has some pain to both legs. 03-24 Leg pain better. But needs to take pain medication. Wound care nurse came out to see him earlier 03-25 PATIENT IS SCHEDULED FOR LEFT FEM-POP WITH Dr. Luciano on Tuesday Monitor labs and correct Pain control as needed Discussed with RN and patient and case management 03-26 SCHEDULED FOR FEM-POP WITH Dr. Luciano TUESDAY STATES PAIN IS NOT CONTROLLED WILL ADJUST AM LABS DW RN AND PT AND CM REPLACE POTASSIUM HYPOMAG WILL REPLACE ALSO 03-27 FOR SURGERY TODAY DW RN AND PT AND CM 03-28 CLEARED BY SURGERY AND PODIATRY 03-29 WANTS TO GO HOME DW RN AND PT STATES HE FEELS HE CAN GO HOME Objective Vitals Vital Signs Date Time Temp Pulse Resp B/P (MAP) Pulse Ox O2 Delivery O2 Flow Rate FiO2 03/29/18 09:00 82 03/29/18 08:59 93 Nasal Cannula 4.00 03/29/18 08:00 98.9 98 20 184/89 (120) 97 03/29/18 08:00 99 03/29/18 07:00 96 03/29/18 06:23 112 03/29/18 05:34 102 03/29/18 05:00 93 Nasal Cannula 4.00 03/29/18 04:59 99.0 108 160/89 (112) 93 03/29/18 04:27 99 03/29/18 03:48 100 03/29/18 02:53 100 03/29/18 02:52 18 03/29/18 01:54 95 03/29/18 00:48 20 03/29/18 00:21 92 03/28/18 23:59 98.1 104 142/73 (96) 94 03/28/18 23:59 94 Nasal Cannula 3.00 03/28/18 23:55 104 03/28/18 23:21 18 03/28/18 22:16 103 03/28/18 20:09 100 03/28/18 20:05 94 Nasal Cannula 3.00 03/28/18 20:03 98.8 110 123/64 (83) 94 03/28/18 19:10 98 03/28/18 18:00 104 03/28/18 17:00 114 03/28/18 16:00 112 03/28/18 15:07 97 Nasal Cannula 3.00 03/28/18 15:07 98.6 98 18 131/67 (88) 97 03/28/18 15:00 106 03/28/18 14:00 95 03/28/18 13:00 110 03/28/18 12:00 86 03/28/18 11:07 98.5 84 18 131/64 (86) 98 03/28/18 11:07 98 Nasal Cannula 3.00 03/28/18 11:00 80 03/28/18 10:00 90 I/O 03/28/18 03/28/18 03/28/18 03/29/18 03/29/18 03/29/18 07:00 15:00 23:00 07:00 15:00 23:00 Intake Total 1340 ml 100 ml 2645 ml 1060 ml Output Total 425 ml 800 ml 500 ml Balance 915 ml 100 ml 1845 ml 560 ml Intake Oral 240 ml 1400 ml 960 ml IV Total 1100 ml 100 ml 1245 ml 100 ml Output Urine Total 425 ml 800 ml 500 ml Bladder Scan Volume Amount 357 ml 357 ml Result Diagram: 03/28/18 0432 03/28/18 0432 Other Results Laboratory Tests Test 03/27/18 08:00 03/27/18 08:10 03/27/18 18:00 03/28/18 04:32 Blood Urea Nitrogen 3 MG/DL 5 MG/DL Creatinine 0.39 MG/DL 0.43 MG/DL Random Glucose 65 MG/DL 86 MG/DL Total Protein 5.9 GM/DL 5.4 GM/DL Albumin 2.0 GM/DL 1.9 GM/DL Calcium Level 8.0 MG/DL 7.8 MG/DL Phosphorus Level 3.3 MG/DL 3.8 MG/DL Magnesium Level 2.0 MG/DL 1.8 MG/DL Alkaline Phosphatase 104 U/L 99 U/L Aspartate Amino Transf (AST/SGOT) 24 U/L 16 U/L Alanine Aminotransferase (ALT/SGPT) 13 U/L 9 U/L Total Bilirubin 0.2 MG/DL 0.2 MG/DL Sodium Level 132 MEQ/L 132 MEQ/L Potassium Level 3.9 MEQ/L 4.7 MEQ/L Chloride Level 96 MEQ/L 96 MEQ/L Carbon Dioxide Level 27.0 MEQ/L 29.3 MEQ/L Anion Gap 9 MEQ/L 7 MEQ/L Estimat Glomerular Filtration Rate 222 ML/MIN 198 ML/MIN White Blood Count 5.7 TH/MM3 7.2 TH/MM3 Red Blood Count 4.21 MIL/MM3 3.95 MIL/MM3 Hemoglobin 13.4 GM/DL 12.2 GM/DL Hematocrit 39.8 % 36.8 % Mean Corpuscular Volume 94.5 FL 93.3 FL Mean Corpuscular Hemoglobin 31.8 PG 30.8 PG Mean Corpuscular Hemoglobin Concent 33.6 % 33.0 % Red Cell Distribution Width 17.3 % 17.1 % Platelet Count 378 TH/MM3 385 TH/MM3 Mean Platelet Volume 7.9 FL 7.8 FL Neutrophils (%) (Auto) 55.3 % 70.9 % Lymphocytes (%) (Auto) 26.1 % 17.4 % Monocytes (%) (Auto) 10.6 % 8.8 % Eosinophils (%) (Auto) 6.9 % 2.1 % Basophils (%) (Auto) 1.1 % 0.8 % Neutrophils # (Auto) 3.2 TH/MM3 5.1 TH/MM3 Lymphocytes # (Auto) 1.5 TH/MM3 1.2 TH/MM3 Monocytes # (Auto) 0.6 TH/MM3 0.6 TH/MM3 Eosinophils # (Auto) 0.4 TH/MM3 0.2 TH/MM3 Basophils # (Auto) 0.1 TH/MM3 0.1 TH/MM3 CBC Comment DIFF FINAL DIFF FINAL Differential Comment Prothrombin Time 10.4 SEC Prothromb Time International Ratio 1.0 RATIO Blood Gas Puncture Site DRAWN IN OR Blood Gas Patient Temperature 98.6 Blood Gas HCO3 27 mmol/L Blood Gas Base Excess 2.3 mmol/L Blood Gas Oxygen Saturation 96 % Arterial Blood pH 7.41 Arterial Blood Partial Pressure CO2 43 mmHg Arterial Blood Partial Pressure O2 133 mmHg Arterial Blood Oxygen Content 16.6 Vol % Arterial Blood Carboxyhemoglobin 1.0 % Arterial Blood Methemoglobin 1.3 % Blood Gas Hemoglobin 12.1 G/DL Oxygen Delivery Device OR Blood Gas Ventilator Setting OR Objective Remarks GENERAL: Well-nourished well-developed patient in no acute distress SKIN: Warm and dry. Peripheral vascular changes with black necrotic changes in the left and right foot first toe areas, erythematous redness worse over the left dorsum of the foot present on bilateral lower extremities HEAD: Atraumatic. Normocephalic. EYES: Pupils equal and round. No scleral icterus. No injection or drainage. ENT: No nasal bleeding or discharge. Mucous membranes pink and moist. NECK: Trachea midline. No JVD. CARDIOVASCULAR: Regular rate and rhythm. RESPIRATORY: No accessory muscle use. Clear to auscultation. Breath sounds equal bilaterally. GASTROINTESTINAL: Abdomen soft, non-tender, nondistended. Hepatic and splenic margins not palpable. MUSCULOSKELETAL: Extremities without clubbing, cyanosis, or edema. No obvious deformities. NEUROLOGICAL: Awake and alert. No obvious cranial nerve deficits. Motor grossly within normal limits. Five out of 5 muscle strength in the arms and legs. Normal speech. Awake alert and oriented 4 to person, place, time, situation moves all 4 extremities PSYCHIATRIC: Appropriate mood and affect; insight and judgment normal. Procedures left fem-pop bypass. Medications and IVs Current Medications Lactated Ringer's 1,000 ml @ 30 mls/hr Q24H PRN IV SEE LABEL COMMENTS Last administered on 03/23/18at 09:00; Start 03/23/18 at 08:00; Stop 03/23/18 at 14:08 ; Status DC Sodium Chloride 500 ml @ 30 mls/hr [id number] PRN IV SEE LABEL COMMENTS; Start at 08:00; Stop 03/23/18 at 14:08; Status DC Metoprolol Tartrate (Lopressor) 25 mg JUKEBOX CHECKER PRN PO SEE LABEL COMMENTS; Start 03/23/18 at 08:00; Stop 03/26/18 at 07:59; Status DC Povidone Iodine (Betadine 5% Antisepsis Kit) 1 applic JUKEBOX CHECKER PRN EACH NARE SEE LABEL COMMENTS; Start 03/23/18 at 08:00; Stop 03/26/18 at 07:59; Status DC Chlorhexidine Gluconate (Chlorhexidine 2% Cloth) 3 pack JUKEBOX CHECKER PRN TOPICAL SEE LABEL COMMENTS; Start 03/23/18 at 08:00; Stop 03/26/18 at 07:59; Status DC Heparin Sodium (Porcine) (Heparin Inj) 10,000 units STK-MED ONCE .ROUTE ; Start 03/23/18 at 08:49; Stop 03/23/18 at 08:50; Status DC Cefazolin Sodium/ Dextrose 0 ml @ As Directed STK-MED ONCE .ROUTE ; Start at 08:49; Stop 03/23/18 at 08:50; Status DC Heparin Sodium (Porcine) (Heparin Inj) 10,000 units STK-MED ONCE .ROUTE ; Start 03/23/18 at 08:49; Stop 03/23/18 at 08:50; Status DC Protamine Sulfate (Protamine Sulfate Inj) 50 mg STK-MED ONCE .ROUTE ; Start at 08:49; Stop 03/23/18 at 08:50; Status DC Sodium Chloride 1,000 ml @ 84 mls/hr [id number] IV ; Start 03/23/18 at 10:30; Stop 03/23/18 at 10:49; Status DC Sodium Chloride 1,000 ml @ 100 mls/hr Q10H IV Last administered on 03/29/18at 01:49; Start 03/23/18 at 14:00 Gabapentin (Neurontin) 800 mg QID PO Last administered on 03/29/18at 08:50; Start 03/23/18 at 14:00 Lactobacillus Acidophilus (Lactinex) 1 tab BID PO Last administered on at 08:49; Start 03/23/18 at 21:00 Cephalexin Monohydrate (Keflex) 500 mg Q6HR PO ; Start 03/23/18 at 12:00; Stop 03/23/18 at 12:00; Status DC Nicotine (Habitrol 14 Mg Patch.24 Hr) 1 patch DAILY T-DERMAL Last administered on 03/27/18at 08:22; Start 03/24/18 at 09:00 Acetaminophen/ Hydrocodone Bitart ([place] 5-325 Mg) 1 tab Q4H PRN PO PAIN 4-10 Last administered on 03/23/18 21:55; Start 03/23/18 at 11:00; Stop 03/26/18 at 11:23; Status DC Cefazolin Sodium 1000 mg/Sodium Chloride 100 ml @ 200 mls/hr Q8H IV Last administered on 03/29/18 06:39; Start 03/23/18 at 14:00 Miscellaneous Information 1 DAILY T-DERMAL Last administered on 03/28/18 08:17 ; Start 03/24/18 at 09:00 Aspirin (Aspirin Chew) 81 mg DAILY CHEW Last administered on 03/29/18 08:47; Start 03/24/18 at 09:00 Acetaminophen/ Hydrocodone Bitart ([place] 7.5-325 Mg) 1 tab Q6H PRN PO PAIN Last administered on 03/26/18 09:23; Start 03/24/18 at 02:45; Stop 03/26/18 at 11:23; Status DC Calcium Carbonate (Oscal) 500 mg Q12HR PO Last administered on 03/29/18 08:49 ; Start 03/24/18 at 21:00 Enoxaparin Sodium (Lovenox Inj) 40 mg Q24H SQ Last administered on 03/28/18 12 :40; Start 03/24/18 at 13:00 Lactic Acid (Lac-Hydrin 12% Lotion) 1 applic BID TOPICAL Last administered on at 21:38; Start 03/24/18 at 14:00 Sodium Chloride (NS Flush) 2 ml UNSCH PRN IV FLUSH FLUSH AFTER USING IV ACCESS ; Start 03/26/18 at 11:30 Sodium Chloride (NS Flush) 2 ml BID IV FLUSH Last administered on 03/29/18at 08: 50; Start 03/26/18 at 21:00 Acetaminophen (Tylenol) 650 mg Q4H PRN PO TEMP > 100.4; Start 03/26/18 at 11:30 Ondansetron HCl (Zofran Odt) 4 mg Q6H PRN PO NAUSEA OR VOMITING; Start at 11:45 Metoclopramide HCl (Reglan Inj) 5 mg Q6H PRN IV PUSH NAUSEA OR VOMITING; Start 03/26/18 at 11:30 Acetaminophen (Tylenol) 650 mg Q6H PRN PO PAIN SCALE 1 TO 2; Start 03/26/18 at 11:30 Oxycodone/ Acetaminophen (Percocet 5-325 Mg) 1 tab Q6H PRN PO PAIN SCALE 3 TO 5 Last administered on 03/29/18at 08:47; Start 03/26/18 at 11:30 Oxycodone/ Acetaminophen (Percocet 10-325 Mg) 1 tab Q6H PRN PO PAIN SCALE 6 TO 10 Last administered on 03/28/18at 21:38; Start 03/26/18 at 11:30 Morphine Sulfate (Morphine Inj) 2 mg Q3H PRN IV PUSH Pain 3-5; if unable to take PO Last administered on 03/29/18at 00:26; Start 03/26/18 at 11:30 Morphine Sulfate (Morphine Inj) 4 mg Q3H PRN IV PUSH Pain 6-10;if unable to take PO Last administered on 03/28/18at 05:10; Start 03/26/18 at 11:30 Morphine Sulfate (Morphine Inj) 4 mg Q3H PRN IV PUSH BREAKTHROUGH PAIN; Start 03/26/18 at 11:30 Naloxone HCl (Narcan Inj) 0.4 mg UNSCH PRN IV PUSH SEE LABEL COMMENTS; Start at 11:30 Senna/Docusate Sodium (Felicia-Colace) 1 tab BID PO Last administered on at 08:49; Start 03/26/18 at 21:00 Magnesium Hydroxide (Milk Of Magnesia Liq) 30 ml Q12H PRN PO Mild constipation ; Start 03/26/18 at 11:30 Sennosides (Senokot) 17.2 mg Q12H PRN PO Moderate constipation; Start 03/26/18 at 11:30 Bisacodyl (Dulcolax Supp) 10 mg DAILY PRN RECTAL SEVERE CONSITIPATION; Start at 11:30 Lactulose (Lactulose Liq) 30 ml DAILY PRN PO SEVERE CONSITIPATION; Start at 11:30 Magnesium Sulfate/ Dextrose 100 ml @ 100 mls/hr Q1H IV Last administered on at 16:03; Start 03/26/18 at 11:30; Stop 03/26/18 at 13:29; Status DC Potassium Phosphate 30 mmol/ Sodium Chloride 260 ml @ 43.333 mls/ hr ONCE ONCE IV Last administered on 03/26/18at 17:26; Start 03/26/18 at 11:30; Stop at 17:29; Status DC Potassium Chloride (KCl) 40 meq ONCE ONCE PO Last administered on 03/26/18at 14 :49; Start 03/26/18 at 11:30; Stop 03/26/18 at 11:42; Status DC Potassium Chloride (KCl) 40 meq ONCE ONCE PO Last administered on 03/26/18at 13 :30; Start 03/26/18 at 13:30; Stop 03/26/18 at 13:31; Status DC Lactated Ringer's 1,000 ml @ 30 mls/hr Q24H PRN IV SEE LABEL COMMENTS; Start at 02:45; Stop 03/30/18 at 02:44 Sodium Chloride 500 ml @ 30 mls/hr [id number] PRN IV SEE LABEL COMMENTS; Start at 02:45; Stop 03/30/18 at 02:44 Metoprolol Tartrate (Lopressor) 25 mg JUKEBOX CHECKER PRN PO SEE LABEL COMMENTS; Start 03/27/18 at 02:45; Stop 03/30/18 at 02:44 Povidone Iodine (Betadine 5% Antisepsis Kit) 1 applic JUKEBOX CHECKER PRN EACH NARE SEE LABEL COMMENTS; Start 03/27/18 at 02:45; Stop 03/30/18 at 02:44 Chlorhexidine Gluconate (Chlorhexidine 2% Cloth) 3 pack JUKEBOX CHECKER PRN TOPICAL SEE LABEL COMMENTS; Start 03/27/18 at 02:45; Stop 03/30/18 at 02:44 Heparin Sodium (Porcine) (Heparin Inj) 10,000 units STK-MED ONCE .ROUTE Last administered on 03/27/18at 17:25; Start 03/27/18 at 14:37; Stop 03/27/18 at 14:38 ; Status DC Heparin Sodium (Porcine) (Heparin Inj) 10,000 units STK-MED ONCE .ROUTE Last administered on 03/27/18at 17:25; Start 03/27/18 at 14:37; Stop 03/27/18 at 14:38 ; Status DC Protamine Sulfate (Protamine Sulfate Inj) 50 mg STK-MED ONCE .ROUTE ; Start at 14:37; Stop 03/27/18 at 14:38; Status DC Fentanyl Citrate (fentaNYL INJ) 500 mcg STK-MED ONCE .ROUTE ; Start 03/27/18 at 14:37; Stop 03/27/18 at 14:38; Status DC Midazolam HCl (Versed Inj) 2 mg STK-MED ONCE .ROUTE ; Start 03/27/18 at 19:00; Stop 03/27/18 at 19:01; Status DC Cefazolin Sodium (Ancef Inj) 2,000 mg ONCE ONCE IV Last administered on at 17:06; Start 03/27/18 at 19:34; Stop 03/27/18 at 19:35; Status DC Miscellaneous Information ([facility] Nursing Information) ALL NURSING DEPARTME... UNSCH PRN .XX SEE LABEL COMMENTS; Start 03/27/18 at 21:00; Stop 03/28/18 at 20: 59; Status DC Morphine Sulfate (*morphine INJ PERIprocedure ONLY) 4 mg STK-MED ONCE .ROUTE Last administered on 03/27/18at 21:06; Start 03/27/18 at 21:03; Stop 03/27/18 at 21:04; Status DC Lidocaine HCl (Xylocaine-Mpf 1% Inj) 10 ml STK-MED ONCE OTHER ; Start 03/27/18 at 12:00; Stop 03/28/18 at 11:41; Status DC Rocuronium [place] (Zemuron Inj) 100 mg STK-MED ONCE IV PUSH ; Start 03/27/18 at 12:00; Stop 03/28/18 at 11:41; Status DC Neostigmine Methylsulfate (Prostigmine Inj) 5 mg STK-MED ONCE IV PUSH ; Start at 12:00; Stop 03/28/18 at 11:41; Status DC Glycopyrrolate (Robinul Inj) 1 mg STK-MED ONCE IV PUSH ; Start 03/27/18 at 12:00 ; Stop 03/28/18 at 11:41; Status DC Phenylephrine HCl (Neosynephrine/ NS 1000 Mcg/10ml Syr) 1,000 mcg STK-MED ONCE IV ; Start 03/27/18 at 12:00; Stop 03/28/18 at 11:41; Status DC Metoprolol Tartrate (Lopressor Inj) 5 mg STK-MED ONCE IV ; Start 03/27/18 at 12: 00; Stop 03/28/18 at 11:41; Status DC Ondansetron HCl (Zofran Inj) 4 mg STK-MED ONCE IV PUSH ; Start 03/27/18 at 12:00 ; Stop 03/28/18 at 11:41; Status DC Cefazolin Sodium (Ancef Inj) 2,000 mg STK-MED ONCE IV ; Start 03/27/18 at 12:00 ; Stop 03/28/18 at 11:41; Status DC Propofol (Diprivan 200 Mg/20 ml Inj) 200 mg STK-MED ONCE IV ; Start 03/27/18 at 12:00; Stop 03/28/18 at 11:41; Status DC A/P Problem List: (1) Hyponatremia ICD Code: E87.1 - Hypo-osmolality and hyponatremia (2) Peripheral vascular disease ICD Code: I73.9 - Peripheral vascular disease, unspecified Assessment and Plan -1. Hyponatremia Levels improved On NS- check urine/ plasma osmolality and urine sodium- check TSH- will monitor the sodium level closely. 2. PVD-previously scheduled for left fem-pop bypass surgery- surgery was cancelled yesterday due to hyponatremia; will be rescheduled when the sodium level improves- vascular surgery consulted. hold coumadin for planned surgery. 3. Cellulitis of both lower extremities; evaluated by podiatry and ID recent admission ( recommended Keflex as outpatient) ; will start on Ancef for now- will consult podiatry ( ). 4. DVT prophylaxis; will start on subq Lovenox when INR < 2. Today's INR 1.3. Coumadin currently on hold. SP LEFT FEM-POP BYPASS SURGERY FOR LEFT FEM-POP 6-25 AM LABS ADJUST PAIN MEDS HYPOKALEMIA WILL REPLACE HYPOMAG WILL REPLACE WANTS TO GO HOME Discharge Planning CLEARED BY SURGERY FOR Dhruv Kc DO Mar 29, 2018 09:52
[2018-03-29] MEDS ORDERED: NICO14DI23 T-DERMAL (10:00)
[2018-03-29] MEDS ORDERED: HYDR-3288 PO (10:00)
[2018-03-29] MEDS ORDERED: SENN187 P-ARTICULR (10:00)
[2018-03-29] MEDS ORDERED: ASPI-516 CHEW (10:00)
[2018-03-29] MEDS ORDERED: GABA800T PO (10:00)
[2018-03-29] MEDS ORDERED: LACTCHW3 CHEW (10:00)
[2018-03-29] MEDS ORDERED: CEPH-460 PO (10:00)
[2018-03-29] MEDS ORDERED: PRIL20TA2 PO (10:00)
--- NOTE | 2018-03-29 10:03 | HHI.FF ---
Face to Face Verification Diagnosis: (1) Gangrene of toe (2) Tobacco abuse (3) Peripheral vascular disease (4) Hyponatremia (5) Hypocalcemia (6) Hypokalemia Physical Therapy Order: Evaluate and Treat, Improve ambulation, Strength and gait training Occupational Therapy Order: Evaluate and Treat, Gross motor coordination, Fine motor coordination Home Health Nursing Order: Medical education Signs/symptoms of disease process Wound care and dressing changes Nursing assessment with vital signs Home Health Aide Order: To Assist In: Bathing and personal care, electronic wirer and meal prep I have seen patient Aron Wang on 03/29/18. My clinical findings support the need for the requested home health care services because: Ltd mobility - disease progression Med compliance is questionable Impaired cognition/judgement I certify that my clinical findings support that this patient is homebound because: Post-op weakness Impaired cognitive ability/safety Unsteady gait/balance Need for psychosocial assistance Dhruv Tobias DO Mar 29, 2018 10:03
--- NOTE | 2018-03-29 10:04 | HHI.DS ---
Discharge Summary Admission Date Mar 23, 2018 at 10:31 Discharge Date: Mar 29, 2018 Admitting Diagnosis hyponatremia (1) Hyponatremia ICD Code: E87.1 - Hypo-osmolality and hyponatremia Diagnosis: Principal (2) Peripheral vascular disease ICD Code: I73.9 - Peripheral vascular disease, unspecified Diagnosis: Principal Procedures left fem-pop bypass. Brief History - From Admission patient is a 68 y/o male with history of PVD,recently diagnosed and treated for cellulitis of both legs was scheduled for left fem-pop bypass today . however the surgery was cancelled after he was found to have a sodium level of 120. he was just admitted to the hospital for cellulitis of both lower extremities. he was evaluated by ID, podiatry and vascular surgery. he was discharged on po Keflex per ID recommendations. he was found to have PVD with bilateral SFA occlusions. the patient decided to go home at the time. he was brought back for elective surgery today. at the time of my evaluation he was in no distress with no reported headache, nausea, vomiting- has some pain to both legs. CBC/BMP: 03/28/18 0432 03/28/18 0432 Significant Findings Laboratory Tests Test 03/27/18 08:00 03/27/18 08:10 03/27/18 18:00 03/28/18 04:32 Blood Urea Nitrogen 3 MG/DL (7-18) 5 MG/DL (7-18) Creatinine 0.39 MG/DL (0.60-1.30) 0.43 MG/DL (0.60-1.30) Random Glucose 65 MG/DL (74-106) Total Protein 5.9 GM/DL (6.4-8.2) 5.4 GM/DL (6.4-8.2) Albumin 2.0 GM/DL (3.4-5.0) 1.9 GM/DL (3.4-5.0) Calcium Level 8.0 MG/DL (8.5-10.1) 7.8 MG/DL (8.5-10.1) Sodium Level 132 MEQ/L (136-145) 132 MEQ/L (136-145) Chloride Level 96 MEQ/L (98-107) 96 MEQ/L (98-107) Red Blood Count 4.21 MIL/MM3 (4.50-5.90) 3.95 MIL/MM3 (4.50-5.90) Red Cell Distribution Width 17.3 % (11.6-17.2) Monocytes (%) (Auto) 10.6 % (0.0-8.0) 8.8 % (0.0-8.0) Eosinophils (%) (Auto) 6.9 % (0.0-4.0) Blood Gas HCO3 27 mmol/L (22-26) Blood Gas Base Excess 2.3 mmol/L (-2-2) Arterial Blood Partial Pressure CO2 43 mmHg (38-42) Arterial Blood Partial Pressure O2 133 mmHg (61-120) Hemoglobin 12.2 GM/DL (13.0-17.0) Hematocrit 36.8 % (39.0-51.0) Neutrophils (%) (Auto) 70.9 % (16.0-70.0) Alanine Aminotransferase (ALT/SGPT) 9 U/L (12-78) PE at Discharge GENERAL: This is a well-nourished, well-developed patient, in no apparent distress. CARDIOVASCULAR: Regular rate and regular rhythm without murmurs, gallops, or rubs. RESPIRATORY: Clear to auscultation. Breath sounds equal bilaterally. No wheezes , rales, or rhonchi. GASTROINTESTINAL: Abdomen soft, non-tender, nondistended. 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 Moves all ext x4 Hospital Course patient is a 68 y/o male with history of PVD,recently diagnosed and treated for cellulitis of both legs was scheduled for left fem-pop bypass today . however the surgery was cancelled after he was found to have a sodium level of 120. he was just admitted to the hospital for cellulitis of both lower extremities. he was evaluated by ID, podiatry and vascular surgery. he was discharged on po Keflex per ID recommendations. he was found to have PVD with bilateral SFA occlusions. the patient decided to go home at the time. he was brought back for elective surgery today. at the time of my evaluation he was in no distress with no reported headache, nausea, vomiting- has some pain to both legs. 03-24 Leg pain better. But needs to take pain medication. Wound care nurse came out to see him earlier 03-25 PATIENT IS SCHEDULED FOR LEFT FEM-POP WITH Dr. Luciano on Tuesday Monitor labs and correct Pain control as needed Discussed with RN and patient and case management 03-26 SCHEDULED FOR FEM-POP WITH Dr. Luciano TUESDAY STATES PAIN IS NOT CONTROLLED WILL ADJUST AM LABS DW RN AND PT AND CM REPLACE POTASSIUM HYPOMAG WILL REPLACE ALSO 03-27 FOR SURGERY TODAY DW RN AND PT AND CM 03-28 CLEARED BY SURGERY AND PODIATRY 03-29 WANTS TO GO HOME DW RN AND PT STATES HE FEELS HE CAN GO HOME Pt Condition on Discharge: Good Discharge Disposition: Disch w/ Home Health Serv Discharge Time: > 30 minutes Discharge Instructions DIET: Follow Instructions for: Heart Healthy Diet Speech Therapy-Diet Recommends: Regular Activities you can perform: Weight Bearing as [place], Shower Only-No Bath Follow up Referrals: Home Health PCP Follow-up - 2-3 Days @ [facility] Podiatry - 3-5 Days with Wendi Reich DPM Vascular Surgery - 2 Weeks with Bertram Luciano MD New Medications: Cephalexin (Keflex) 500 Mg Cap 500 MG PO Q6H for Infection, #40 CAP 0 Refills Omeprazole Magnesium (Prilosec) 20 Mg Tab 1 TAB PO DAILY for Manage Heartburn, #30 TAB Sennosides (Senna-Lax) 8.6 Mg Tab 2 TAB P-ARTICULR BID for Bowel Management, #120 TAB Nicotine (Eq Nicotine) 14 Mg/24 Hour Dis 1 PATCH T-DERMAL DAILY for TOBACCO, #30 PATCH Continued Medications: Aspirin (Aspirin) 81 Mg Chew 81 MG CHEW DAILY for Blood Clot Prevention, #30 TAB 0 Refills (This prescription has been renewed) Gabapentin (Gabapentin) 800 Mg Tab 800 MG PO QID for Pain Management, #120 TAB 0 Refills (This prescription has been renewed) Hydrocodone-Acetaminophen ([place]) 7.5-325 mg Tab 1 TAB PO Q6H PRN for PAIN, #40 TAB 0 Refills (This prescription has been renewed ) Lactobacillus Acidophilus (Lactinex) 1 Chew 1 TAB CHEW BID for Nutritional Supplement, #30 TAB 0 Refills (This prescription has been renewed) Discontinued Medications: Omeprazole Magnesium (Prilosec) 10 Mg Pow MG PO DAILY Dhruv Tobias DO Mar 29, 2018 10:04
== END 2018-03-29 11:56 | disposition home or self-care (01) | DRG 629 ==
LOC: HSDC 07:13 → N06B 10:31 → HPAC 03-27 20:21 → HCPC 03-27 20:37 → HPAC 03-27 20:44 → HCPC 03-27 21:35
PROVIDERS: ADMIT Hospitalist; ATTEND Hospitalist
PROC: 041L0JL Bypass Left Femoral Artery to Popliteal Artery with Synthetic Substitute, Open Approach (ICD-10-PCS; principal; 2018-03-27 16:10)
DX: E87.1 Hypo-osmolality and hyponatremia (principal); G82.22 Paraplegia, incomplete; I50.9 Heart failure, unspecified; I70.262 Atherosclerosis of native arteries of extremities with gangrene, left leg; I70.221 Atherosclerosis of native arteries of extremities with rest pain, right leg; L03.115 Cellulitis of right lower limb; E83.42 Hypomagnesemia; L03.116 Cellulitis of left lower limb; E78.5 Hyperlipidemia, unspecified; F17.210 Nicotine dependence, cigarettes, uncomplicated; E87.6 Hypokalemia; Z79.01 Long term (current) use of anticoagulants
CPT/HCPCS: 80048; 80053; 82805; 83036; 83735; 83930; 83935; 84100; 84155; 84295; 84300; 84439; 84443; 85025; 85610; 86850; 86900; 86901; 88304; 88311; 93005; C1768; J0690; J1644; J1650; J2250; J2270; J2370; J2405; J2710; J2720; J3010; J3475; J7030; J7050; J7120

== ENCOUNTER 2018-03-31 13:47 | Inpatient (IN) ==
[2018-04-01] MEDS ORDERED: Albumin Human 5% Inj 500 ML IV.SIG ONE (23:52)
[2018-04-02] MEDS ORDERED: Sodium Phosphate Inj 30 MMOL in Sodium Chlor 0.9% Inj 250 ML IV.SIG PRN (00:01)
[2018-04-02] MEDS ORDERED: Morphine Inj 4 MG/ML Vial IV.PUSH PRN (00:01)
[2018-04-02] MEDS ORDERED: Potassium Chlor 20 mEq Premix 20 MEQ/100 ML PIGGYBACK IV.SIG PRN ×2 (00:01)
[2018-04-02] MEDS ORDERED: RESP: Albuterol Concentrated 2.5 MG/0.5 ML Neb NEB PRN (00:01)
[2018-04-02] MEDS ORDERED: Dextrose 50% in Water 50 ML Vial IV.PUSH PRN (00:01)
[2018-04-02] MEDS ORDERED: Magnesium Sulfate Inj 4 GM in Sodium Chlor 0.9% Inj 92 ML IV.SIG PRN (00:01)
[2018-04-02] MEDS ORDERED: Vancomycin Consult Pharmacy 1 EACH OTHER SCH (00:01)
[2018-04-02] MEDS ORDERED: Potassium Chloride 25 MEQ Effervescent Tablet PO PRN (00:01)
[2018-04-02] MEDS ORDERED: Dexmedetomidine Inj 200 MCG/50 ML INFUS..BTL IV.CONT PRN (00:01)
[2018-04-02] MEDS ORDERED: Magnesium Oxide 400 MG Tablet PO PRN (00:01)
[2018-04-02] MEDS ORDERED: Potassium Phosphate 500 MG Soluble Tablet PO PRN ×2 (00:01)
[2018-04-02] MEDS ORDERED: Bisacodyl 10 MG Supp RECTAL PRN (00:01)
[2018-04-02] MEDS ORDERED: Magnesium Sulfate Inj 2 GM in Sodium Chlor 0.9% Inj 96 ML IV.SIG PRN (00:01)
[2018-04-02] MEDS ORDERED: Potassium Chlor 40 mEq Premix 40 MEQ/100 ML PIGGYBACK IV.SIG PRN ×2 (00:01)
[2018-04-02] MEDS ORDERED: Potassium Phosphate Inj 30 MMOL in Sodium Chlor 0.9% Inj 250 ML IV.SIG PRN (00:01)
[2018-04-02] MEDS: Sod Chloride 0.9% Inj 1,000 ML IV.SIG SCH ×2 (01:00→14:46)
[2018-04-02] MEDS: Morphine Inj 4 MG/ML Vial IV.PUSH PRN ×4 (03:13→22:46)
[2018-04-02] MEDS: Piperacil/Tazo 3.375 GM Premix 50 ML IV.SIG SCH ×2 (04:00→09:28)
[2018-04-02] MEDS: Chlorhexidine Gluconate 2% 1 Pack (2 Cloths) TOPICAL SCH (04:00)
[2018-04-02] MEDS ORDERED: Chlorhexidine Gluconate 2% 1 Pack (2 Cloths) TOPICAL PRN (04:00)
[2018-04-02] MEDS ORDERED: Dextrose 5%/Lactated Ringer's 1,000 ML IV.SIG ONE (04:16)
[2018-04-02] MEDS ORDERED: Vancomycin Inj 1,500 MG in Sodium Chlor 0.9% Inj 500 ML IV.SIG SCH (07:00)
[2018-04-02] MEDS: Gabapentin 400 MG Capsule PO SCH ×4 (09:28→22:16)
[2018-04-02] MEDS: Famotidine PF Inj 20 MG/2 ML Vial IV.PUSH SCH ×2 (09:29→21:15)
[2018-04-02] MEDS: Senna/Docusate Sodium 8.6/50 MG Tablet PO SCH ×2 (10:58→22:15)
[2018-04-02] MEDS: Insulin NovoLOG Aspart Correctional Sugar Inj SQ SCH ×4 (11:08→22:47)
--- NOTE | 2018-04-02 12:34 | P.PNCC ---
Subjective Subjective Remarks/Hospital Course: 03/31: Providing cross cover and called to bedside for respiratory distress. He was tachypneic with poor air movement bilaterally and appeared in distress on 100% NR. I discussed intubation and mechanical ventilation with him and he refused stating that he did not need it. Ordered duo nebs. He remained in some distress and indicated to nurse that he might want to "use the breathing machine". His son (Scot Wang) called and intubation and mechanical ventilation was discussed with him (by RN) and he was surprised stating that his father had a DNR. His son, states he is the healthcare surrogate. I went in to discuss code status with patient. He is oriented x3 and appears capacitated for medical decision-making. He confirms that he previously had designated himself DNR. I discussed that his respiratory status was worse and that we were preparing for intubation. He states that he would not want to be on ventilator. I discussed with him what he would want us to do if it was " life and ". He states that he would wish to forego intubation and ventilation even if it would result in . He states that if intubation became inevitable and he was in distress, that he wishes to be "kept comfortable ". He is agreeable to trying BiPAP. He primarily is focused on getting pain medication right now. I discussed with them that we can treat his pain while simultaneously supporting his breathing. His bedside RN, compass operator and RT are at bedside. Asked him again about his code status. He confirms DNR. I called patients son. He states that it was his understanding from prior conversations with his dad that he desires DNR and he states he would support decision for DNR if patient lost capacity. Son states he want to be the only person that could receive medical information about the patient. I spoke with the patient who also states he wants his SON TO BE THE ONLY PERSON WHO RECEIVES MEDICAL INFORMATION. I have notified charge nurse and bedside nurse. Patient's pin number will be changed to last 4 of H number. Son provided the pin. Son wishes to be called with any major changes, any time of day/night [phone] Code status changed to DNR as per above. 04/01: On nasal cannula since this morning, off BiPAP. 04/02: Received fluid bolus overnight for hypotension. Currently appears comfortable breathing comfortably. No specific complaints normotensive now Objective Vital Signs / I&O: Vital Signs 04/02/18 00:00 04/02/18 01:00 04/02/18 02:00 Temperature 98.2 F Pulse Rate 76 72 84 Respiratory Rate 11 L 10 L 16 Blood Pressure 98/57 L 106/65 84/60 L Pulse Oximetry 99 96 92 L 04/02/18 03:00 04/02/18 03:15 04/02/18 04:00 Temperature 98.0 F Pulse Rate 80 74 Respiratory Rate 15 16 15 Blood Pressure 99/58 L 80/50 L Pulse Oximetry 97 100 04/02/18 05:00 04/02/18 05:07 04/02/18 06:00 Temperature Pulse Rate 70 71 80 Respiratory Rate 15 16 17 Blood Pressure 103/56 L 100/57 L Pulse Oximetry 99 98 04/02/18 07:00 04/02/18 07:57 04/02/18 08:00 Temperature 98.5 F Pulse Rate 74 79 Respiratory Rate 11 L 21 Blood Pressure 93/57 L 101/55 L Pulse Oximetry 95 94 L 95 04/02/18 09:39 Temperature Pulse Rate 76 Respiratory Rate 15 Blood Pressure Pulse Oximetry 99 Intake & Output 04/01/18 04/02/18 04/02/18 18:59 06:59 18:59 Intake Total 1550 / 1550 Output Total 600 / 600 Balance 950 / 950 Intake: IV 1550 / 1550 Alburx 5% Inj 500 ML @ 0 mls/hr 500 / 500 IV.SIG .STK-MED ONE Rx#: [id number] D5W/LR Inj 1,000 ML @ Wide Open 1000 / 1000 IV.SIG BOLUS ONE Rx#:[id number] Zosyn 3.375 GM Premix 50 ML @ 50 / 50 100 mls/hr IV.SIG Q6H ZULEMA Rx#: [id number] Output: Urine Amount (Catheter) 600 / 600 Condom 600 / 600 Result Diagrams: 04/01/18 03:27 04/02/18 06:19 Objective Remarks: GENERAL: Elderly male, laying in ICU bed, not in any acute distress SKIN: Cool and dry. No generalized rash, no ecchymoses HEAD: Atraumatic. Normocephalic. EYES: Pupils equal, round and reactive to light. Extraocular movements full and intact. No scleral icterus. No injection or drainage. EARS, NOSE AND THROAT: No exudate. No oral thrush. NECK: Trachea midline. Supple and not tender, no meningeal signs CARDIOVASCULAR: Regular rate and rhythm. No murmurs, rubs or gallops heard RESPIRATORY: Scattered rhonchi bilaterally with few wheezes. Decreased breath sounds at bases ABDOMEN: Soft, non-tender, nondistended. Bowel sounds present and normoactive. No guarding. No rebound. No organomegaly. EXTREMITIES: No clubbing, cyanosis. Incision L groin ok, no redness, has small amount drainage. Incision L medial thigh with some induration. Ecchymoses in L upper thigh. Swelling L foot, sensitive to touch, some necrotic changes over his big toe and the 4th band 3rd toes, no odor. LLE, no redness, no tenderness. NEUROLOGICAL: Awake and alert. Cranial nerves grossly intact. Motor grossly within normal limits. Assessment and Plan - Assessment and Plan Plan: Assessment and Plan This is a 68-year-old male recently hospitalized status post femoropopliteal bypass with concurrent diagnosis of bilateral foot cellulitis under the direction of infectious disease management, that was recently discharged. Now presenting with altered mental status, electrolyte derangement with severe hyponatremia and possible necrotizing fasciitis. Plan by systems: Neurologic: Paraplegia Syncopal episodes Altered mental status Neuro checks per ICU protocol Acetaminophen 650 every 6 hours as needed for pain 1-5 and/or fever Dilaudid 1 mg every 4 hours for pain scale 6-10 CT brain-no acute abnormality Respiratory: Home O2 dependency/COPD Maintain O2 saturation greater than 92% Duo nebs every 4 hours as needed for wheezing BIPAP prn Cardiovascular: Peripheral vascular disease Hypotension S/P left femoropopliteal bypass Hypercholesterolemia Received fluid bolus yesterday night Maintain MAP greater than 65mmHG Noted elevated troponin 1.2, cardiology consult Monitor serial troponin, obtain EKG Vascular surgery Dr. Luciano Renal: Place condom catheter if needed -- Strict I/Os FEN/GI: Rhabdomyolysis Hyponatremia Hyperammonemia Protein calorie malnutrition PO diet as tolerated Zofran for nausea Monitor ammonia levels Trend creatinine kinase level Heme/ID: Leukocytosis Recent history bilateral lower extremity cellulitis F/U blood and urine cultures Monitor CBC empiric antibiotics-vancomycin and Zosyn ID consult noted Endocrine: Glucose monitoring per ICU protocol low dose regimen -- SSI Prophylaxis: GI Prophylaxis Famotidine twice daily DVT Prophylaxis -- SCDs Lines: Peripheral IVs 2 DNR status Problem Qualifiers
--- NOTE | 2018-04-02 13:41 | P.PNCA ---
- Note Subjective/Hospital Course:: 04/02/2018 Patient is status post left femoral-popliteal bypass Graft is patent patient has good dopplerable signal in the graft and popliteal artery Feet are warm Incisions are clean and dry Still persistent leukocytosis but not from the surgery sites Nothing to add to care at this time We will continue to follow with you Objective:: Vital Signs - 24 hr 04/02/18 00:00 04/02/18 01:00 04/02/18 02:00 Temperature 98.2 F Pulse Rate 76 72 84 Respiratory Rate 11 L 10 L 16 Blood Pressure 98/57 L 106/65 84/60 L Pulse Oximetry 99 96 92 L 04/02/18 03:00 04/02/18 03:15 04/02/18 04:00 Temperature 98.0 F Pulse Rate 80 74 Respiratory Rate 15 16 15 Blood Pressure 99/58 L 80/50 L Pulse Oximetry 97 100 04/02/18 05:00 04/02/18 05:07 04/02/18 06:00 Temperature Pulse Rate 70 71 80 Respiratory Rate 15 16 17 Blood Pressure 103/56 L 100/57 L Pulse Oximetry 99 98 04/02/18 07:00 04/02/18 07:57 04/02/18 08:00 Temperature 98.5 F Pulse Rate 74 79 Respiratory Rate 11 L 21 Blood Pressure 93/57 L 101/55 L Pulse Oximetry 95 94 L 95 04/02/18 09:39 04/02/18 12:00 04/02/18 13:00 Temperature 97.8 F Pulse Rate 76 82 82 Respiratory Rate 15 22 Blood Pressure 109/61 Pulse Oximetry 99 97 Labs:: Laboratory Results - last 12 hr 04/02/18 04/02/18 04/02/18 06:19 06:19 06:19 Sodium 130 L Potassium Troponin I 0.80 H* Vancomycin Trough 18.3 H 04/02/18 06:19 Sodium Potassium 3.8 Troponin I Vancomycin Trough Result Diagrams: 04/01/18 03:27 04/02/18 06:19
--- NOTE | 2018-04-02 13:56 | P.PNID ---
Subjective Remarks: Patient is a 68-year-old male, presented to the hospital after he was found by his home health vocational nursing instructor on the floor. He was quite lethargic with altered mental status. Patient has been hospitalized twice recently. The first one was March 13 - March 18 and at that time he was diagnosed to have bilateral lower extremity cellulitis, and he had some gangrenous changes on the toes on his left foot. Vascular saw the patient, and it was decided to have the patient come in for elective surgery to do his revascularization. He was discharged March 18 on Keflex. He was readmitted March 23 after he was found to have significant hyponatremia. He is vascular surgery was postponed. During that admission he underwent left femoropopliteal bypass grafting March 27 and he had a Mckee-Abraham graft put in. Podiatry apparently has evaluated the patient, and had recommended amputation of some of the toes on his left foot, but the patient refused. Patient was discharged March 29, and he had home health vocational nursing instructor come to his house twice a day. On the day of admission, he was apparently on his wheelchair, and he passed out. When the home health vocational nursing instructor came that night he was found on the floor, and he was brought into the hospital for further evaluation and treatment. In the ED his vital signs were stable. He has had some low-grade temps. His WBC was up to 22,000. CPK was elevated. Urinalysis had 15 WBC. Chest x-ray with cardiomegaly and pulmonary vascular congestion. Patient had CT of the left lower extremity and there are some postsurgical changes with some gas and some small pockets of fluid. WBC is up to 24,000 today. Cultures are pending. Vascular surgery has evaluated the patient, and felt that there is no evidence of infection in the left lower extremity. Infectious disease consultation has been requested to evaluate the patient with recent bilateral lower extremity cellulitis,? Necrotizing fasciitis. At the time my exam, patient denies any shortness of breath. He has some low-grade temps. His hemodynamics are stable. He is not on pressors. He states he has some smoker's cough, but not does not bring up any significant sputum production. He uses oxygen at home. He denies any chest pain. There is been no nausea or vomiting, no diarrhea or any urinary complaints. He complains of pain in his left lower extremity which has mildly improved since after the surgery. He has significant sensitivity on the left foot when touched which has been the same and has not really worsened. Currently he is on vancomycin and Zosyn. Notes reviewed Last fever was yesterday at 4:00 in the morning Leg pain under control blood cultures are negative Urine culture with Pseudomonas Hemodynamics good Antibiotics: Zosyn Vancomycin Past Medical History: CHF? Hyperlipidemia PVD Recently treated cellulitis. ?COPD Past Surgical History Ankle surgery Recent L fempop bypass Allergies/Adverse Reactions: Allergies No Known Allergies Allergy (Unverified 03/31/18 14:30) Objective Vital Signs Temp Pulse Resp BP Pulse Ox 04/02/18 13:00 82 04/02/18 12:00 97.8 F 82 22 109/61 97 04/02/18 09:39 76 15 99 04/02/18 08:00 98.5 F 79 21 101/55 L 95 04/02/18 07:57 94 L 04/02/18 07:00 74 11 L 93/57 L 95 04/02/18 06:00 80 17 100/57 L 98 04/02/18 05:07 71 16 04/02/18 05:00 70 15 103/56 L 99 04/02/18 04:00 98.0 F 74 15 80/50 L 100 04/02/18 03:15 16 04/02/18 03:00 80 15 99/58 L 97 04/02/18 02:00 84 16 84/60 L 92 L 04/02/18 01:00 72 10 L 106/65 96 04/02/18 00:00 98.2 F 76 11 L 98/57 L 99 Intake and Output 04/01/18 04/02/18 04/02/18 22:59 06:59 14:59 Intake Total 1550 / 1550 Output Total 600 / 600 Balance 950 / 950 Intake: IV 1550 / 1550 Al[place] 5% Inj 500 ML @ 0 mls/hr 500 / 500 IV.SIG .STK-MED ONE Rx#: [id number] D5W/LR Inj 1,000 ML @ Wide Open 1000 / 1000 IV.SIG BOLUS ONE Rx#:[id number] Zosyn 3.375 GM Premix 50 ML @ 50 / 50 100 mls/hr IV.SIG Q6H ZULEMA Rx#: [id number] Output: Urine Amount (Catheter) 600 / 600 Condom 600 / 600 Intake & Output 04/01/18 04/02/18 04/02/18 18:59 06:59 18:59 Intake Total 1550 / 1550 Output Total 600 / 600 Balance 950 / 950 Intake: IV 1550 / 1550 [place] 5% Inj 500 ML @ 0 mls/hr 500 / 500 IV.SIG .STK-MED ONE Rx#: [id number] D5W/LR Inj 1,000 ML @ Wide Open 1000 / 1000 IV.SIG BOLUS ONE Rx#:[id number] Zosyn 3.375 GM Premix 50 ML @ 50 / 50 100 mls/hr IV.SIG Q6H ZULEMA Rx#: [id number] Output: Urine Amount (Catheter) 600 / 600 Condom 600 / 600 Lab - Hematology Results 03/31/18 04/01/18 15:10 03:27 WBC 22.6 H 24.3 H RBC 3.44 L 2.94 L Hgb 10.4 L 9.0 L Hct 31.3 L 26.6 L MCV 91.1 90.5 MCH 30.2 30.7 MCHC 33.2 34.0 RDW 17.0 16.3 Plt Count 365 316 MPV 8.3 8.0 Neut % (Auto) 93.5 H 94.7 H Lymph % (Auto) 2.9 L 2.0 L [place] % (Auto) 3.3 2.1 Eos % (Auto) 0.1 0.0 Baso % (Auto) 0.2 1.2 Neut # (Auto) 21.1 H 23.0 H Lymph # (Auto) 0.7 L 0.5 L [place] # (Auto) 0.7 0.5 Eos # (Auto) 0.0 0.0 Baso # (Auto) 0.0 0.3 H CBC Comment AUTO DIFF DIFF FINAL Total Counted 100 Neutrophils % (Manual) 77 H Band Neutrophils % 15 H Lymphocytes % 4 L Monocytes % 4 Neutrophils # (Manual) 20.8 H Differential Comment FINAL DIFF MANUAL Toxic Vacuolation PRESENT H Platelet Estimate NORMAL Plt Morphology Comment NORMAL Lab - Chemistry Results 03/31/18 03/31/18 03/31/18 15:10 15:10 15:10 Sodium 120 L* Potassium 4.0 Chloride 85 L Carbon Dioxide 20.6 L Anion Gap 14 BUN 14 Creatinine 0.55 L Estimated GFR 149 Random Glucose 80 Lactic Acid 1.6 Calcium 7.2 L* Prot Corrected Calcium 7.9 L Phosphorus Total Bilirubin 0.7 AST 76 H ALT 12 Alkaline Phosphatase 91 Ammonia 30 Total Creatine Kinase 1214 H CK-MB (CK-2) 9.6 H CK-MB (CK-2) % 0.8 Troponin I 1.21 H* B-Natriuretic Peptide Total Protein 5.7 L Albumin 1.9 L [facility] 3rd Generation 1.780 03/31/18 03/31/18 04/01/18 15:10 18:30 01:09 Sodium 125 L Potassium Chloride Carbon Dioxide Anion Gap BUN Creatinine Estimated GFR Random Glucose Lactic Acid Calcium Prot Corrected Calcium Phosphorus 2.3 L Total Bilirubin AST ALT Alkaline Phosphatase Ammonia Total Creatine Kinase 1432 H 1324 H CK-MB (CK-2) 10.8 H 5.9 H CK-MB (CK-2) % 0.8 0.4 Troponin I 2.44 H* D B-Natriuretic Peptide 1345 H Total Protein Albumin [facility] 3rd Generation 04/01/18 04/01/18 04/01/18 03:27 03:27 13:05 Sodium 126 L 126 L Potassium 2.8 L* D Chloride 92 L Carbon Dioxide 19.7 L Anion Gap 14 BUN 11 Creatinine 0.56 L Estimated GFR 146 Random Glucose 102 Lactic Acid 1.3 Calcium 6.7 L* Prot Corrected Calcium 7.8 L Phosphorus 3.1 Total Bilirubin 0.6 AST 93 H ALT 16 Alkaline Phosphatase 77 Ammonia Total Creatine Kinase CK-MB (CK-2) CK-MB (CK-2) % Troponin I 2.31 H* D 1.22 H* D B-Natriuretic Peptide Total Protein 4.9 L D Albumin 1.6 L [facility] 3rd Generation 04/01/18 04/01/18 04/02/18 18:40 18:40 06:19 Sodium 126 L 130 L Potassium 3.4 L Chloride Carbon Dioxide Anion Gap BUN Creatinine Estimated GFR Random Glucose Lactic Acid Calcium Prot Corrected Calcium Phosphorus Total Bilirubin AST ALT Alkaline Phosphatase Ammonia Total Creatine Kinase CK-MB (CK-2) CK-MB (CK-2) % Troponin I 1.11 H* D B-Natriuretic Peptide Total Protein Albumin [facility] 3rd Generation 04/02/18 04/02/18 06:19 06:19 Sodium Potassium 3.8 Chloride Carbon Dioxide Anion Gap BUN Creatinine Estimated GFR Random Glucose Lactic Acid Calcium Prot Corrected Calcium Phosphorus Total Bilirubin AST ALT Alkaline Phosphatase Ammonia Total Creatine Kinase CK-MB (CK-2) CK-MB (CK-2) % Troponin I 0.80 H* B-Natriuretic Peptide Total Protein Albumin TSH 3rd Generation Imaging: RADIOLOGY STUDIES/FILMS REVIEWED Head CT 03/31/18 1505 Signed Impressions: CONCLUSION: 1. Senescent changes with mild to moderate periventricular ischemic white dio er demyelination. 2. No acute intracranial abnormality. Chest X-Ray 03/31/18 1505 Signed Impressions: CONCLUSION: 1. Cardiomegaly with mild pulmonary vascular congestion. Lower Extremity CT 03/31/18 0000 Signed Impressions: CONCLUSION: 1. Expected postsurgical changes status post recent surgery with edema and sma ll fluid collections. 2. No definite abscess. Abdomen/Pelvis CT 03/31/18 0000 Signed Impressions: CONCLUSION: 1. Diffuse anasarca. 2. Nonobstructive bowel gas pattern. 3. Moderate to severe compression fracture deformity L3 vertebral body which i s of indeterminate age but could be acute. 4. Chronic appearing interstitial opacities in both lung bases as well as atel ectasis in the dependent portions. There is evidence of chronic underlying lung disease. Physical Exam: Physical Exam GENERAL: Patient is a well-nourished, well-developed male, awake and alert, not in respiratory distress. SKIN: Cool and dry. No generalized rash, no ecchymoses and no evidence of embolic lesions. HEAD: Atraumatic. Normocephalic. No temporal wasting, or tenderness. EYES: [place] conjunctiva. No petechia or hemorrhage. Pupils equal, round and reactive to light. Extraocular movements full and intact. No scleral icterus. No injection or drainage. EARS, NOSE AND THROAT: Nose without bleeding or purulent nasal discharge. No sinus tenderness. Mucous membranes pink and moist. No oral lesions noted. No exudate. No oral thrush. NECK: Trachea midline. Supple and not tender, no meningeal signs CARDIOVASCULAR: Regular rate and rhythm. No murmurs, rubs or gallops heard RESPIRATORY: Clear to auscultation. Breath sounds equal bilaterally. No rales , wheezing or rhonchi. Decreased breath sounds at bases ABDOMEN: Soft, non-tender, nondistended. Bowel sounds present and normoactive. No guarding. No rebound. No organomegaly. EXTREMITIES: No clubbing, cyanosis. Incision L groin ok, no redness, has small amount drainage. INcision L medial thigh with some induration, nut no redness, tender to touch, no crepitus. Has some ecchymoses in L upper thigh. L leg not tender. Has swelling L foot, very sensitive to touch, no erythema, has some necrotic changes over his big toe and the 4th band 3rd toes, no odor. LLE, no redness, no tenderness. Both LE has very tight skin. No calf tenderness. NEUROLOGICAL: Awake and alert. Cranial nerves grossly intact. Motor grossly within normal limits. PSYCHIATRIC: Normal affect, calm and cooperative. LINE: No evidence of infection Assessment and Plan - Plan IMPRESSION Possible sepsis, present on admission - source - LLE looks ok, no cellulitis, wounds ok, clinically no evidence of nec fasc - CT findings prob all post op changes - ?PNA - has mild pyuria, UC with PSAE UTI, PSAE - CT A/P no obstruction PVD with necrotic changes in his toes L foot, S/P revascularization Elevated CPK, ?from fall and post-op Leukocytosis ?Possible acute AK, with elevated troponin RECOMMENDATION Stop Vancomycin Change Zosyn to Cefepime Follow cultures and adjust antibiotics accordingly Monitor temps Follow CBC Monitor progress
--- NOTE | 2018-04-02 15:09 | P.PNCA ---
Subjective Interval history: Follow up for Dr. Larson Evaluated due to elevated troponin with SOB Extubated, doing well overall Denies CP, SOB better Physical Exam Vital signs: Vital Signs 04/02/18 00:00 04/02/18 01:00 04/02/18 02:00 Temperature 98.2 F Pulse Rate 76 72 84 Respiratory Rate 11 L 10 L 16 Blood Pressure 98/57 L 106/65 84/60 L Pulse Oximetry 99 96 92 L 04/02/18 03:00 04/02/18 03:15 04/02/18 04:00 Temperature 98.0 F Pulse Rate 80 74 Respiratory Rate 15 16 15 Blood Pressure 99/58 L 80/50 L Pulse Oximetry 97 100 04/02/18 05:00 04/02/18 05:07 04/02/18 06:00 Temperature Pulse Rate 70 71 80 Respiratory Rate 15 16 17 Blood Pressure 103/56 L 100/57 L Pulse Oximetry 99 98 04/02/18 07:00 04/02/18 07:57 04/02/18 08:00 Temperature 98.5 F Pulse Rate 74 79 Respiratory Rate 11 L 21 Blood Pressure 93/57 L 101/55 L Pulse Oximetry 95 94 L 95 04/02/18 09:39 04/02/18 12:00 04/02/18 13:00 Temperature 97.8 F Pulse Rate 76 82 82 Respiratory Rate 15 22 Blood Pressure 109/61 Pulse Oximetry 99 97 Intake & Output 04/01/18 04/02/18 04/02/18 18:59 06:59 18:59 Intake Total 1550 / 1550 Output Total 600 / 600 Balance 950 / 950 Intake: IV 1550 / 1550 Alburx 5% Inj 500 ML @ 0 mls/hr 500 / 500 IV.SIG .STK-MED ONE Rx#: [id number] D5W/LR Inj 1,000 ML @ Wide Open 1000 / 1000 IV.SIG BOLUS ONE Rx#:[id number] Zosyn 3.375 GM Premix 50 ML @ 50 / 50 100 mls/hr IV.SIG Q6H ZULEMA Rx#: [id number] Output: Urine Amount (Catheter) 600 / 600 Condom 600 / 600 Narrative: GENERAL: NAD, AAOx3 SKIN: Warm and dry. HEAD: Atraumatic. Normocephalic. EYES: Pupils equal and round. No scleral icterus. No injection or drainage. ENT: No nasal bleeding or discharge. Mucous membranes pink and moist. NECK: Trachea midline. No JVD. CARDIOVASCULAR: Regular rate and rhythm. RESPIRATORY: No accessory muscle use. Clear to auscultation. Breath sounds equal bilaterally. GASTROINTESTINAL: Abdomen soft, non-tender, nondistended. Hepatic and splenic margins not palpable. MUSCULOSKELETAL: Extremities without clubbing, cyanosis, or edema. Left foot with some eschar around the toes NEUROLOGICAL: Awake and alert. No obvious cranial nerve deficits. Motor grossly within normal limits. Five out of 5 muscle strength in the arms and legs. Normal speech. PSYCHIATRIC: Appropriate mood and affect; insight and judgment normal. - Urinary Catheter Management Condom Cath placed during this visit: no Assessment and Plan - Assessment (1) NSTEMI (non-ST elevated myocardial infarction) Code(s): I21.4 - Non-ST elevation (NSTEMI) myocardial infarction Status: Acute (2) SOB (shortness of breath) Code(s): R06.02 - Shortness of breath Status: Acute (3) COPD (chronic obstructive pulmonary disease) Code(s): J44.9 - Chronic obstructive pulmonary disease, unspecified Status: Acute (4) Peripheral vascular disease Code(s): I73.9 - Peripheral vascular disease, unspecified Status: Acute - Plan 1) NSTEMI Most likely type 2 due to significant COPD exacerbation High likelihood of significant CAD due to history of PAD Will not plan on ischemic evaluation at the patient's wishes due to DNR status and he would not like further procedures 2) COPD exacerbation s/p intubation and extubation 3) PAD s/p left fem-pop bypass 4) EF 55-60% 5) Con't medical management
[2018-04-03 05:03] LABS: Baso # (Auto) 0.1 th/mm3 (0.0-0.2); Baso % (Auto) 0.6 % (0.0-2.0); Eos # (Auto) 0.2 th/mm3 (0.0-0.4); Hematocrit 28.9 % (39.0-51.0); Hemoglobin 9.6 gm/dL (13.0-17.0); Lymph % (Auto) 11.5 % (9.0-44.0); Mean Corpuscular HGB Conc 33.3 % (32.0-36.0); Mean Corpuscular Hemoglobin 30.9 pg (27.0-34.0); Mean Corpuscular Volume 92.6 fL (80.0-100.0); Mean Platelet Volume 8.4 fL (7.0-11.0); Mono # (Auto) 0.5 th/mm3 (0.0-0.9); Mono % (Auto) 5.9 % (0.0-8.0); Neut # (Auto) 7.2 th/mm3 (1.8-7.7); Platelet Count 285 th/mm3 (150-450); Red Blood Count 3.12 mil/mm3 (4.50-5.90); Red Cell Distribution Width 16.9 % (11.6-17.2)
[2018-04-03 05:26] LABS: Alanine Aminotransferase 22 U/L (12-78); Albumin 1.8 g/dL (3.4-5.0); Alkaline Phosphatase 77 U/L (45-117); Anion Gap 11 meq/L (5-15); Aspartate Aminotransferase 49 U/L (15-37); Blood Urea Nitrogen 6 mg/dL (7-18); Calcium 7.7 mg/dL (8.5-10.1); Carbon Dioxide 19.6 meq/L (21.0-32.0); Chloride 101 meq/L (98-107); Glomerular Filtration Rate Greater Than 89 mL/min (>89); Glucose,Random 96 mg/dL (74-106); Potassium 3.5 meq/L (3.5-5.1); Sodium 132 meq/L (136-145); Total Protein 5.3 g/dL (6.4-8.2)
[2018-04-03] MEDS: Morphine Inj 4 MG/ML Vial IV.PUSH PRN ×5 (06:09→23:12)
--- NOTE | 2018-04-03 09:12 | P.PN ---
Subjective Interval history: Nursing denies any deterioration since last night. Patient himself says he really wants to go home. Says he is open to "operations" if warranted but he does not want to be resuscitated. He declined a cardiac catheterization. Physical Exam Vital signs: Vital Signs 04/02/18 09:39 04/02/18 12:00 04/02/18 13:00 Temperature 97.8 F Pulse Rate 76 82 82 Respiratory Rate 15 22 Blood Pressure 109/61 Pulse Oximetry 99 97 04/02/18 16:00 04/02/18 16:06 04/02/18 20:00 Temperature 98.7 F 97.7 F Pulse Rate 88 77 84 Respiratory Rate 22 14 13 Blood Pressure 104/57 L 131/59 L Pulse Oximetry 94 L 96 04/02/18 21:49 04/02/18 21:50 04/02/18 22:00 Temperature Pulse Rate 79 82 Respiratory Rate 12 Blood Pressure Pulse Oximetry 100 04/03/18 00:00 04/03/18 04:00 04/03/18 04:52 Temperature 98.1 F 97.8 F Pulse Rate 83 81 79 Respiratory Rate 16 14 17 Blood Pressure 109/56 L 116/63 Pulse Oximetry 96 96 04/03/18 08:00 Temperature 98.3 F Pulse Rate 80 Respiratory Rate 9 L Blood Pressure 129/73 Pulse Oximetry 94 L Intake & Output 04/02/18 04/03/18 04/03/18 18:59 06:59 18:59 Intake Total 1000 / 1000 1480 / 1480 Output Total 850 / 850 400 / 400 Balance 150 / 150 1080 / 1080 Intake: IV 1000 / 1000 NS Inj 1,000 ML @ 84 mls/hr IV. 1000 / 1000 SIG .[id number] [facility] Rx#:[id number] Oral 1000 / 1000 480 / 480 Output: Urine Amount (Catheter) 850 / 850 400 / 400 Condom 850 / 850 400 / 400 Other: Date of Last Bowel Movement 04/03/18 04/02/18 # Bowel Movements 1 1 Narrative: Unlabored breathing, clear lungs bilaterally, no cyanosis Atrophied skin on bilateral lower extremities, bilateral feet appears slightly erythematous - Urinary Catheter Management Condom Cath placed during this visit: no Results - Labs CBC & Chem 7: 04/03/18 03:48 04/03/18 03:48 Laboratory Results - last 24 hr 04/02/18 04/02/18 04/02/18 06:19 11:16 11:16 WBC RBC Hgb Hct MCV MCH MCHC RDW Plt Count MPV Neut % (Auto) Lymph % (Auto) [place] % (Auto) Eos % (Auto) Baso % (Auto) Neut # (Auto) Lymph # (Auto) [place] # (Auto) Eos # (Auto) Baso # (Auto) WBC Differential Differential Comment Sodium 133 L Potassium 3.8 Chloride Carbon Dioxide Anion Gap BUN Creatinine Estimated GFR Random Glucose Calcium Total Bilirubin AST ALT Alkaline Phosphatase Troponin I 0.76 H* Total Protein Albumin 04/02/18 04/02/18 04/03/18 11:16 20:01 03:48 WBC RBC Hgb Hct MCV MCH MCHC RDW Plt Count MPV Neut % (Auto) Lymph % (Auto) [place] % (Auto) Eos % (Auto) Baso % (Auto) Neut # (Auto) Lymph # (Auto) [place] # (Auto) Eos # (Auto) Baso # (Auto) WBC Differential Differential Comment Sodium 132 L Potassium 3.5 Chloride 101 Carbon Dioxide 19.6 L Anion Gap 11 BUN 6 L Creatinine 0.51 L Estimated GFR Greater than 89 Random Glucose 113 H 96 Calcium 7.7 L Total Bilirubin 0.3 AST 49 H ALT 22 Alkaline Phosphatase 77 Troponin I 0.70 H* Total Protein 5.3 L Albumin 1.8 L 04/03/18 03:48 WBC 9.0 RBC 3.12 L Hgb 9.6 L Hct 28.9 L MCV 92.6 MCH 30.9 MCHC 33.3 RDW 16.9 Plt Count 285 MPV 8.4 Neut % (Auto) 80.0 H Lymph % (Auto) 11.5 [place] % (Auto) 5.9 Eos % (Auto) 2.0 Baso % (Auto) 0.6 Neut # (Auto) 7.2 Lymph # (Auto) 1.0 [place] # (Auto) 0.5 Eos # (Auto) 0.2 Baso # (Auto) 0.1 WBC Differential . Differential Comment Auto diff final Sodium Potassium Chloride Carbon Dioxide Anion Gap BUN Creatinine Estimated GFR Random Glucose Calcium Total Bilirubin AST ALT Alkaline Phosphatase Troponin I Total Protein Albumin Assessment and Plan - Plan This is a 68-year-old male recently hospitalized status post femoropopliteal bypass with concurrent diagnosis of bilateral foot cellulitis under the direction of infectious disease management, that was recently discharged. Now presenting with altered mental status, electrolyte derangement with severe hyponatremia and possible necrotizing fasciitis. Chronic Paraplegia Syncopal episodes - possibly 2/2 NSTEMI, fall precautions and keep on telemetry Altered mental status -resolved Neuro checks Dilaudid 1 mg every 4 hours for pain scale 6-10 CT brain-no acute abnormality Home O2 dependency/COPD Duo nebs every 4 hours as needed for wheezing BIPAP prn Possible ACS/N STEMI Patient declining invasive cardiac workup. Start aspirin and Lipitor Peripheral vascular disease Starting aspirin and Lipitor S/P left femoropopliteal bypass Rhabdomyolysis Hyponatremia Hyperammonemia Recent history bilateral lower extremity cellulitis F/U blood and urine cultures empiric antibiotics-vancomycin and Zosyn ID consult noted lovenox DNR status Discharge Planning: Patient is willing to have conversation with palliative care, especially given that he has very complex preferences in terms of the level of care he would desire.
[2018-04-03] MEDS: Famotidine PF Inj 20 MG/2 ML Vial IV.PUSH SCH ×2 (09:18→23:23)
[2018-04-03] MEDS: Gabapentin 400 MG Capsule PO SCH ×5 (09:19→23:50)
[2018-04-03] MEDS: Chlorhexidine Gluconate 2% 1 Pack (2 Cloths) TOPICAL SCH (09:19)
[2018-04-03] MEDS: Sod Chloride 0.9% Inj 1,000 ML IV.SIG SCH (09:20)
--- NOTE | 2018-04-03 10:26 | P.CONPAL ---
Consult Service: Palliative Care Requesting Physician: Kike Toussaint Reason for Consult: a. To assist with evaluation and management of symptoms including: b. To assist medical decision maker(s) with: better understanding of current medical conditions; weighing benefits/burdens of medical treatment options; making medical treatment decisions. Primary Care Provider: [facility] History of Present Illness History of Present Illness: This is the third acute care hospitalization since 03/13/18 for this 68 y/o with a complicated medical history including peripheral vascular disease ; O2 dependent COPD; hyperlipidemia; hypertension who presented to the [facility] Emergency Department via EMS on 03/31/18 with altered mental status. The patient had recently been discharged from the hospital after having undergone left femoral-popliteal bypass surgery on 03/27/[address] Varela. The patient had to have his vascular bypass surgery postponed initially due to cellulitis. The surgery, however was uneventful with a reported normal postoperative course. He was discharged home with home health services in place. It was the home health nurse who apparently activated EMS by calling 911. The patient reported that he had been passing out earlier in the morning. There is no history of vomiting or diarrhea. Patient denied pain. Initial vital signs in the emergency department revealed the following: Temperature 98.0; pulse 94; respiratory rate 16; blood pressure 144/75; pulse oximetry 95% on O2 via nasal cannula at 3 L a minute. Initial examination by the emergency emergency department clinician noted the following: Patient was lethargic, disheveled appearing, poor skin hygiene, and in moderate distress. Cardiovascular, respiratory, abdominal, and psychiatric exams were reportedly normal. The left lower extremity was noted to be warm, swollen, and erythematous especially in the groin area. The emergency emergency department clinician was concerned about possible subcutaneous emphysema in that area. Slurred speech was noted. Initial diagnostic testing revealed the following: * CBC showed WBC 22.6; hemoglobin 10.4; platelet count 365. There were 15% band neutrophils. Toxic vacuolation was present. * Coagulation profile showed PT 11.5 seconds; INR level 1.1 * Urinalysis showed large occult blood, small leukocyte esterase, 15 WBCs per high-power field. Nitrites were negative. * Chemistry profile showed sodium 120; potassium 4.0; chloride 85; CO2 20.6; BUN 14; creatinine 0.55; glucose 80; calcium 7.2; GFR 149; anion gap 14; lactic acid 1.6; protein corrected calcium 7.9 * Liver function studies showed total bilirubin 0.7; AST 76; ALT 12; alkaline phosphatase 91; total protein 5.7; albumin 1.9; ammonia 30 * Cardiac serology showed total CK 1214; CK-MB 9.6; CK-MB percent 0.8; troponin I 0.21; B-type natriuretic peptide 1345 * TSH was 1.78 * Urine drug screen was negative as was acetaminophen level * Ethyl alcohol level was less than 3 * Twelve-lead EKG showed normal sinus rhythm, normal axis, and nonspecific ST-T wave changes. * Chest x-ray showed a left lower lobe infiltrate * CT imaging of the abdomen/pelvis showed diffuse anasarca; nonobstructive bowel gas pattern; moderate to severe compression fracture deformity of L3 of indeterminate age; and chronic appearing interstitial opacities in both lung bases. * Head CT was unremarkable except for mild to moderate senescent changes. Overall, there were concerns for the patient's elevated white blood cell count and bandemia; lung infiltrate; hyponatremia; possible rhabdomyolysis, and elevated cardiac enzymes. The intravenous antibiotics. The patient was placed on empiric Critical care was consulted and the patient was admitted to the intensive care unit. Cardiology and vascular surgery was also consulted. Cardiology felt the patient had suffered a non-ST elevation myocardial infarction. Echocardiogram showed preserved left ventricular systolic function with an ejection fraction of 55-60%. There is no significant valvular dysfunction. Vascular surgery did not think the patient's status was related to the recent vascular surgery but instead felt the clinical picture is due to the left lower lobe infiltrate and hyponatremia as well as the apparent myocardial infarction. The patient went into respiratory distress on the evening of 03/31/18. He was tachypneic with poor air movement bilaterally in spite of being on a nonrebreather and 100%. the critical care physician felt the patient was capacitated. Resuscitation status was discussed with both the patient and the patient's son. The patient was clear that he did not want to be intubated or placed on mechanical ventilation. He did agree to BiPAP. Infectious disease was consulted on oh 04/01/18. Infectious disease did not think there was cellulitis or wound infection or necrotizing fasciitis. There were concerns for pneumonia and possible urinary tract infection. The urine culture ultimately grew out Pseudomonas. Blood cultures were negative. By 04/01/18 the patient had weaned off the BiPAP and was tolerating O2 via nasal cannula. On 04/02/18 there was an episode of hypotension requiring a fluid bolus. The patient has complained of significant pain since admission primarily involving his leg and foot on the affected side. He has also had pain in the medial buttock. Have primarily been in the #6 to #10 range. Nursing pain scores Nurses have noted that the reported pain has been accompanied by anxiety , restlessness, agitation, moaning, grimacing, and guarding. Patient has at times described the pain as hot and burning. Patient complains of deteriorating vision. He is quite hard of hearing and wears hearing aids at home. He gets occasional chest pains which he attributes to his COPD. He rarely coughs. No nausea, vomiting, diarrhea, constipation, blood per rectum. He has some discomfort chronically when he starts to urinate , but things feel normal once urination is under way. The remainder of the ROS is negative. . 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 He began using a walker in 1972 and became essentially wheelchair bound in 1975. Nevertheless, he has been living independently doing his own transfers, toileting, bathing, and other ADLs. 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 He normally has pain in the lower extremities requiring scheduled gabapentin and 0-3 immediate release oxycodone per day. . Review of Systems All other systems reviewed negative except as stated in HPI [facility] - Surgical History Surgical History: Surgical History (Last Updated 04/03/18 @ 10:40 by Reji Copeland MD) Status post femoral-popliteal bypass surgery - Family History Family History: Family History (Last Updated 04/03/18 @ 11:25 by Reji Copeland MD) Father Family history of cancer - Tobacco History Tobacco Use In Past 30 Days: Yes Smoking Status: Current every day smoker - Alcohol History How Often Do You Have a Drink Containing Alcohol: 2 to 3 times a week - Substance Use History Substance History: No History of Abuse - Travel History History of Recent Travel: Yes (Moved here from [facility] about 3 weeks ago) Recent Travel in the [facility] Within the Last 8 Weeks: Yes Recent Travel Out of the Country Within the Last 8 Weeks: No Medications and Allergies Active Medications: Active Medications Hydrocodone Bitart/Acetaminophen ([place] 5/325) 1 tab PO Q6H PRN PRN Reason: PAIN SCALE 1 TO 10 Al Hydroxide/Mg Hydroxide (Milk Of Magnazul Liq) 30 ml PO Q12H PRN PRN Reason: MILD CONSTIPATION Albuterol (Duoneb Neb ([facility])) 1 ampul NEB Q6HR NEB [facility] Last Admin: 04/02/18 21:48 Dose: 1 ampul Albuterol (Albuterol Concentrated Neb) 2.5 mg NEB Q2HR NEB PRN PRN Reason: WHEEZING Albuterol (Duoneb Neb ([facility]off[facility])) 1 ampul NEB Q4HR NEB [facility] Last Admin: 04/02/18 16:05 Dose: 1 ampul Aspirin (Aspirin) 325 mg PO DAILY GEOFFREY Atorvastatin Calcium (Lipitor) 40 mg PO HS [facility] Bisacodyl (Dulcolax Supp) 10 mg RECTAL DAILY PRN PRN Reason: SEVERE CONSITIPATION Chlorhexidine Gluconate (Chlorhexidine 2% Cloth) 3 pack TOPICAL DAILY@0400 [facility] Stop: 04/07/18 03:59 Last Admin: 04/03/18 09:19 Dose: 3 pack Chlorhexidine Gluconate (Chlorhexidine 2% Cloth) 3 pack TOPICAL DAILY@0400 PRN PRN Reason: Extra cloth needed Stop: 04/07/18 03:59 Dextrose (D50w Vial) 50 ml IV.PUSH UNSCH PRN PRN Reason: PER HYPOGLYCEMIA PROTOCOL Famotidine (Pepcid Pf Inj) 20 mg IV.PUSH Q12HR [facility] Last Admin: 04/03/18 09:18 Dose: 20 mg Gabapentin (Neurontin) 800 mg PO QID [facility] Gabapentin (Neurontin) 800 mg PO QID [facility] Last Admin: 04/03/18 09:19 Dose: 800 mg Glucagon (Glucagon Inj) 1 mg OTHER PRN PRN PRN Reason: for Hypoglycemia Protocol Cefepime HCl 2,000 mg/ Sodium (Chloride) 100 mls @ 200 mls/hr IV.SIG Q8H [facility] Last Admin: 04/03/18 09:19 Dose: 200 mls/hr Magnesium Sulfate Inj 4 gm/ (Sodium Chloride) 100 mls @ 50 mls/hr IV.SIG UNSCH PRN PRN Reason: For Magnesium 0.9 - 1.1 mg/dL Magnesium Sulfate Inj 2 gm/ (Sodium Chloride) 100 mls @ 50 mls/hr IV.SIG UNSCH PRN PRN Reason: For Magnesium 1.2 - 1.6 mg/dL Potassium Chloride (Kcl 40 Meq Premix Inj) 40 meq in 100 mls @ 25 mls/hr IV.SIG Q2H PRN PRN Reason: For Potassium 2.8 - 3.2 mEq/L Potassium Chloride (Kcl 20 Meq Premix Inj) 20 meq in 100 mls @ 50 mls/hr IV.SIG Q2H PRN PRN Reason: For Potassium 3.3 - 3.5 mEq/L Potassium Chloride (Kcl 40 Meq Premix Inj) 40 meq in 100 mls @ 25 mls/hr IV.SIG UNSCH PRN PRN Reason: For Potassium 3.3 - 3.5 mEq/L Potassium Phosphate 30 mmol/ (Sodium Chloride) 260 mls @ 42 mls/hr IV.SIG UNSCH PRN PRN Reason: SEE LABEL COMMENTS Sodium Phosphate 30 mmol/ (Sodium Chloride) 260 mls @ 42 mls/hr IV.SIG UNSCH PRN PRN Reason: For Phosphorus < 2.5 mg/dL Potassium Chloride (Kcl 20 Meq Premix Inj) 20 meq in 100 mls @ 50 mls/hr IV.SIG Q2H PRN PRN Reason: For Potassium 2.8 - 3.2 mEq/L Sodium Chloride (Ns Inj) 1,000 mls @ 84 mls/hr IV.SIG .[id number] [facility] Last Admin: 04/03/18 09:20 Dose: 84 mls/hr Dexmedetomidine/Sodium Chloride (Precedex Inj) 200 mcg in 50 mls @ 3.885 mls/ hr IV.CONT TITRATE PRN; Protocol PRN Reason: SEDATION Insulin Aspart (Novolog Insulin Suppl Scale Inj) 1 unit SQ ACHS GEOFFREY; Protocol Last Admin: 04/02/18 22:47 Dose: Not Given Lactobacillus Acidophilus (Lactinex) 1 tab PO BID [facility] Lactulose (Lactulose Liq) 30 ml PO DAILY PRN PRN Reason: SEVERE CONSITIPATION Magnesium Oxide (Mag-Ox) 800 mg PO UNSCH PRN PRN Reason: For Magnesium 1.2 - 1.6 mg/dL Miscellaneous Information ([facility] Ordered Lab Info) 0 each OTHER ONCE ONE Stop: 04/06/18 06:46 Morphine Sulfate (Morphine Inj) 2 mg IV.PUSH Q3H PRN PRN Reason: BREAKTHROUGH PAIN 1-3 Morphine Sulfate (Morphine Inj) 4 mg IV.PUSH Q3H PRN PRN Reason: BREAKTROUGH PAIN 4-10 Last Admin: 04/03/18 09:31 Dose: 4 mg Ondansetron HCl (Zofran Inj) 4 mg IV.PUSH Q6H PRN PRN Reason: NAUSEA OR VOMITING Potassium Bicarb/Potassium Chloride (K-Lyte) 50 meq PO UNSCH PRN PRN Reason: For Potassium 3.3 - 3.5 mEq/L Potassium Phosphate (K-Phos Original) 2,000 mg PO Q4H PRN PRN Reason: Phosphorus Less Than 2.5 mg/dL Potassium Phosphate (K-Phos Original) 2,000 mg PO UNSCH PRN PRN Reason: SEE LABEL COMMENTS Senna/Docusate Sodium (Felicia-Colace) 1 tab PO BID [facility] Last Admin: 04/02/18 22:15 Dose: Not Given Sennosides (Senokot) 17.2 mg PO Q12H PRN PRN Reason: MODERATE CONSTIPATION Sodium Chloride (Ns Flush) 2 ml IV.FLUSH BID [facility] Last Admin: 04/02/18 22:16 Dose: 2 ml Sodium Chloride (Ns Flush) 2 ml IV.FLUSH PRN PRN PRN Reason: FLUSH AFTER USING IV ACCESS Allergies Allergy/AdvReac Type Severity Reaction Status Date / Time No Known Allergies Allergy Unverified 03/31/18 14:30 Home Medications Medication Instructions Recorded Confirmed Type Lactobacillus acidoph-L.bulgar 1 tab PO BID 04/01/18 04/01/18 History [Lactinex] aspirin 81 mg PO DAILY 04/01/18 04/01/18 History cephalexin 500 mg PO Q6H 04/01/18 04/01/18 History gabapentin 800 mg PO QID 04/01/18 04/01/18 History hydrocodone-acetaminophen 1 tab PO DAILY 04/01/18 04/01/18 History nicotine 1 patch TRANSDERMAL DAILY 04/01/18 04/01/18 History omeprazole 20 mg PO DAILY 04/01/18 04/01/18 History sennosides 8.6 mg PO BID 04/01/18 04/01/18 History Advance Directives Living Will: Yes Healthcare Surrogate: Yes (Reports his son is his health care surrogate. ) Power of Special Service Officer: No Today's verbally stated goals: Patient does not want intubation, mechanical ventilation, or shock. He will accpet BiPAP. He still wants aggressive care short of hospitalizations including surgery, more hospitalizations, diagnostic testing, etc. . Family/friends goals: Did not speak with family/friends today Ethical and Legal Issues: No known legal / ethical issues at this time. . Physical Exam Vital Signs: Vital Signs - 24 hr 04/02/18 12:00 04/02/18 13:00 04/02/18 16:00 Temperature 97.8 F 98.7 F Pulse Rate 82 82 88 Respiratory Rate 22 22 Blood Pressure 109/61 104/57 L Pulse Oximetry 97 94 L 04/02/18 16:06 04/02/18 20:00 04/02/18 21:49 Temperature 97.7 F Pulse Rate 77 84 79 Respiratory Rate 14 13 12 Blood Pressure 131/59 L Pulse Oximetry 96 04/02/18 21:50 04/02/18 22:00 04/03/18 00:00 Temperature 98.1 F Pulse Rate 82 83 Respiratory Rate 16 Blood Pressure 109/56 L Pulse Oximetry 100 96 04/03/18 04:00 04/03/18 04:52 04/03/18 08:00 Temperature 97.8 F 98.3 F Pulse Rate 81 79 80 Respiratory Rate 14 17 9 L Blood Pressure 116/63 129/73 Pulse Oximetry 96 94 L I&O: Intake & Output 04/01/18 04/02/18 04/03/18 04/04/18 06:59 06:59 06:59 06:59 Intake Total 1550 / 1550 2580 / 2580 Output Total 600 / 600 1250 / 1250 Balance 950 / 950 1330 / 1330 Weight 77.7 kg Physical Exam: CONSTITUTIONAL/GENERAL: This is an adequately nourished patient, in no apparent distress. TUBES/LINES/DRAINS: Nasal cannula 02; peripheral IV; dodd SKIN: No jaundice, rashes. Healing surgical incision Left lower extremity without evidence of infection. Both lower extermities with induration but no real erythema/warmth. Left foot swollen and tender. Necrotic changes over left great toe. . Skin temperature appropriate. Not diaphoretic. HEAD: Atraumatic. Normocephalic. EYES: Pupils equal and round and reactive. Extraocular motions intact. No scleral icterus. No injection or drainage. Fundi not examined. ENT: Hard of hearing. Nose without bleeding or purulent drainage. Throat without visible erythema, exudates, masses, or lesions. Dentures. NECK: Trachea midline. Supple, nontender. No palpable thyroid enlargement or nodularity. CARDIOVASCULAR: Regular rate and rhythm without murmurs, gallops, or rubs. + JVD. RESPIRATORY/CHEST: Symmetric, unlabored respirations. Diminished air moveemnt bilatearlly. . No wheezes, rales, or rhonchi. GASTROINTESTINAL: Abdomen soft, non-tender, nondistended. No hepato-splenomegaly , or palpable masses. No guarding. Bowel sounds present. GENITOURINARY: Without palpable bladder distension. Dodd catheter in place. MUSCULOSKELETAL: Healing surgical incision Left lower extremity without evidence of infection. Both lower extermities with induration but no real erythema/warmth. Left foot swollen and tender. Necrotic changes over left great toe. . Skin temperature appropriate. Not diaphoretic. LYMPHATICS: No palpable cervical or supraclavicular adenopathy. NEUROLOGICAL: Awake and alert. Motor and sensory grossly within normal limits. Follows commands. Cognitively sharp. Moves all extremities. PSYCHIATRIC: No obvious anxiety/depression. Frustrated with being in hospital. No apparent hallucinations or other psychotic thought process. Diagnostic Tests Laboratory: Laboratory Results - last 72 hr 03/31/18 03/31/18 03/31/18 15:10 15:10 15:10 WBC RBC Hgb Hct MCV MCH MCHC RDW Plt Count MPV Neut % (Auto) Lymph % (Auto) [place] % (Auto) Eos % (Auto) Baso % (Auto) Neut # (Auto) Lymph # (Auto) [place] # (Auto) Eos # (Auto) Baso # (Auto) CBC Comment WBC Differential Total Counted Neutrophils % (Manual) Band Neutrophils % Lymphocytes % Monocytes % Neutrophils # (Manual) Differential Comment Toxic Vacuolation Platelet Estimate Plt Morphology Comment PT INR APTT Puncture Site Patient Temperature HCO3 Base Excess O2 Saturation ABG pH ABG pCO2 ABG pO2 ABG O2 Content ABG Carboxyhemoglobin ABG Methemoglobin Hemoglobin O2 Delivery Device Liter Flow Sodium 120 L* Potassium 4.0 Chloride 85 L Carbon Dioxide 20.6 L Anion Gap 14 BUN 14 Creatinine 0.55 L Estimated GFR 149 Random Glucose 80 Lactic Acid Calcium 7.2 L* Prot Corrected Calcium 7.9 L Phosphorus Total Bilirubin 0.7 AST 76 H ALT 12 Alkaline Phosphatase 91 Ammonia Total Creatine Kinase 1214 H CK-MB (CK-2) 9.6 H CK-MB (CK-2) % 0.8 Troponin I 1.21 H* B-Natriuretic Peptide Total Protein 5.7 L Albumin 1.9 L TSH 3rd Generation 1.780 Urine Color Urine Turbidity Urine pH Ur Specific [place] Urine Protein Urine Glucose (UA) Urine Ketones Urine Occult Blood Urine Nitrite Urine Bilirubin Urine Urobilinogen Ur Leukocyte Esterase Urine RBC Urine WBC Hyaline Casts Urine Mucus Micro UA Comment Nasal Screen MRSA (PCR) Vancomycin Trough Salicylates LESS THAN 1.7 L Urine Opiates Screen NEG Acetaminophen LESS THAN 2.0 L Ur Barbiturates Screen NEG Ur Amphetamines Screen NEG U Benzodiazepines Scrn NEG Urine Cocaine Screen NEG U Cannabinoids Screen NEG Ethyl Alcohol LESS THAN 3 03/31/18 03/31/18 03/31/18 15:10 15:10 15:10 WBC RBC Hgb Hct MCV MCH MCHC RDW Plt Count MPV Neut % (Auto) Lymph % (Auto) [place] % (Auto) Eos % (Auto) Baso % (Auto) Neut # (Auto) Lymph # (Auto) [place] # (Auto) Eos # (Auto) Baso # (Auto) CBC Comment WBC Differential Total Counted Neutrophils % (Manual) Band Neutrophils % Lymphocytes % Monocytes % Neutrophils # (Manual) Differential Comment Toxic Vacuolation Platelet Estimate Plt Morphology Comment PT 11.5 INR 1.1 APTT Puncture Site Patient Temperature HCO3 Base Excess O2 Saturation ABG pH ABG pCO2 ABG pO2 ABG O2 Content ABG Carboxyhemoglobin ABG Methemoglobin Hemoglobin O2 Delivery Device Liter Flow Sodium Potassium Chloride Carbon Dioxide Anion Gap BUN Creatinine Estimated GFR Random Glucose Lactic Acid 1.6 Calcium Prot Corrected Calcium Phosphorus Total Bilirubin AST ALT Alkaline Phosphatase Ammonia 30 Total Creatine Kinase CK-MB (CK-2) CK-MB (CK-2) % Troponin I B-Natriuretic Peptide Total Protein Albumin TSH 3rd Generation Urine Color Urine Turbidity Urine pH Ur Specific [place] Urine Protein Urine Glucose (UA) Urine Ketones Urine Occult Blood Urine Nitrite Urine Bilirubin Urine Urobilinogen Ur Leukocyte Esterase Urine RBC Urine WBC Hyaline Casts Urine Mucus Micro UA Comment Nasal Screen MRSA (PCR) Vancomycin Trough Salicylates Urine Opiates Screen Acetaminophen Ur Barbiturates Screen Ur Amphetamines Screen U Benzodiazepines Scrn Urine Cocaine Screen U Cannabinoids Screen Ethyl Alcohol 03/31/18 03/31/18 03/31/18 15:10 15:10 15:10 WBC 22.6 H RBC 3.44 L Hgb 10.4 L Hct 31.3 L MCV 91.1 MCH 30.2 MCHC 33.2 RDW 17.0 Plt Count 365 MPV 8.3 Neut % (Auto) 93.5 H Lymph % (Auto) 2.9 L [place] % (Auto) 3.3 Eos % (Auto) 0.1 Baso % (Auto) 0.2 Neut # (Auto) 21.1 H Lymph # (Auto) 0.7 L [place] # (Auto) 0.7 Eos # (Auto) 0.0 Baso # (Auto) 0.0 CBC Comment AUTO DIFF WBC Differential Total Counted 100 Neutrophils % (Manual) 77 H Band Neutrophils % 15 H Lymphocytes % 4 L Monocytes % 4 Neutrophils # (Manual) 20.8 H Differential Comment FINAL DIFF MANUAL Toxic Vacuolation PRESENT H Platelet Estimate NORMAL Plt Morphology Comment NORMAL PT INR APTT Puncture Site Patient Temperature HCO3 Base Excess O2 Saturation ABG pH ABG pCO2 ABG pO2 ABG O2 Content ABG Carboxyhemoglobin ABG Methemoglobin Hemoglobin O2 Delivery Device Liter Flow Sodium Potassium Chloride Carbon Dioxide Anion Gap BUN Creatinine Estimated GFR Random Glucose Lactic Acid Calcium Prot Corrected Calcium Phosphorus Total Bilirubin AST ALT Alkaline Phosphatase Ammonia Total Creatine Kinase CK-MB (CK-2) CK-MB (CK-2) % Troponin I B-Natriuretic Peptide 1345 H Total Protein Albumin TSH 3rd Generation Urine Color YELLOW Urine Turbidity HAZY H Urine pH 6.0 Ur Specific [place] 1.012 Urine Protein NEG Urine Glucose (UA) NEG Urine Ketones TRACE H Urine Occult Blood LARGE H Urine Nitrite NEG Urine Bilirubin NEG Urine Urobilinogen 2.0 H Ur Leukocyte Esterase SMALL H Urine RBC 1 Urine WBC 15 H Hyaline Casts 1 Urine Mucus FEW H Micro UA Comment CULTURE INDICATED Nasal Screen MRSA (PCR) Vancomycin Trough Salicylates Urine Opiates Screen Acetaminophen Ur Barbiturates Screen Ur Amphetamines Screen U Benzodiazepines Scrn Urine Cocaine Screen U Cannabinoids Screen Ethyl Alcohol 03/31/18 03/31/18 03/31/18 17:28 18:30 21:00 WBC RBC Hgb Hct MCV MCH MCHC RDW Plt Count MPV Neut % (Auto) Lymph % (Auto) [place] % (Auto) Eos % (Auto) Baso % (Auto) Neut # (Auto) Lymph # (Auto) [place] # (Auto) Eos # (Auto) Baso # (Auto) CBC Comment WBC Differential Total Counted Neutrophils % (Manual) Band Neutrophils % Lymphocytes % Monocytes % Neutrophils # (Manual) Differential Comment Toxic Vacuolation Platelet Estimate Plt Morphology Comment PT INR APTT Puncture Site RT RADIAL Patient Temperature 98.6 HCO3 22 Base Excess -0.8 O2 Saturation 85 L* ABG pH 7.50 H ABG pCO2 29 L ABG pO2 53 L* ABG O2 Content 11.4 L ABG Carboxyhemoglobin 3.2 ABG Methemoglobin 0.4 Hemoglobin 9.5 L O2 Delivery Device [place]AL [place] Liter Flow 3 Sodium Potassium Chloride Carbon Dioxide Anion Gap BUN Creatinine Estimated GFR Random Glucose Lactic Acid Calcium Prot Corrected Calcium Phosphorus Total Bilirubin AST ALT Alkaline Phosphatase Ammonia Total Creatine Kinase 1432 H CK-MB (CK-2) 10.8 H CK-MB (CK-2) % 0.8 Troponin I B-Natriuretic Peptide Total Protein Albumin TSH 3rd Generation Urine Color Urine Turbidity Urine pH Ur Specific [place] Urine Protein Urine Glucose (UA) Urine Ketones Urine Occult Blood Urine Nitrite Urine Bilirubin Urine Urobilinogen Ur Leukocyte Esterase Urine RBC Urine WBC Hyaline Casts Urine Mucus Micro UA Comment Nasal Screen MRSA (PCR) MRSA NOT DETECTED Vancomycin Trough Salicylates Urine Opiates Screen Acetaminophen Ur Barbiturates Screen Ur Amphetamines Screen U Benzodiazepines Scrn Urine Cocaine Screen U Cannabinoids Screen Ethyl Alcohol 04/01/18 04/01/18 04/01/18 01:09 03:27 03:27 WBC RBC Hgb Hct MCV MCH MCHC RDW Plt Count MPV Neut % (Auto) Lymph % (Auto) [place] % (Auto) Eos % (Auto) Baso % (Auto) Neut # (Auto) Lymph # (Auto) [place] # (Auto) Eos # (Auto) Baso # (Auto) CBC Comment WBC Differential Total Counted Neutrophils % (Manual) Band Neutrophils % Lymphocytes % Monocytes % Neutrophils # (Manual) Differential Comment Toxic Vacuolation Platelet Estimate Plt Morphology Comment PT INR APTT Puncture Site Patient Temperature HCO3 Base Excess O2 Saturation ABG pH ABG pCO2 ABG pO2 ABG O2 Content ABG Carboxyhemoglobin ABG Methemoglobin Hemoglobin O2 Delivery Device Liter Flow Sodium 125 L 126 L Potassium 2.8 L* D Chloride 92 L Carbon Dioxide 19.7 L Anion Gap 14 BUN 11 Creatinine 0.56 L Estimated GFR 146 Random Glucose 102 Lactic Acid 1.3 Calcium 6.7 L* Prot Corrected Calcium 7.8 L Phosphorus 2.3 L 3.1 Total Bilirubin 0.6 AST 93 H ALT 16 Alkaline Phosphatase 77 Ammonia Total Creatine Kinase 1324 H CK-MB (CK-2) 5.9 H CK-MB (CK-2) % 0.4 Troponin I 2.44 H* D 2.31 H* D B-Natriuretic Peptide Total Protein 4.9 L D Albumin 1.6 L TSH 3rd Generation Urine Color Urine Turbidity Urine pH Ur Specific [place] Urine Protein Urine Glucose (UA) Urine Ketones Urine Occult Blood Urine Nitrite Urine Bilirubin Urine Urobilinogen Ur Leukocyte Esterase Urine RBC Urine WBC Hyaline Casts Urine Mucus Micro UA Comment Nasal Screen MRSA (PCR) Vancomycin Trough Salicylates Urine Opiates Screen Acetaminophen Ur Barbiturates Screen Ur Amphetamines Screen U Benzodiazepines Scrn Urine Cocaine Screen U Cannabinoids Screen Ethyl Alcohol 04/01/18 04/01/18 04/01/18 03:27 03:27 13:05 WBC 24.3 H RBC 2.94 L Hgb 9.0 L Hct 26.6 L MCV 90.5 MCH 30.7 MCHC 34.0 RDW 16.3 Plt Count 316 MPV 8.0 Neut % (Auto) 94.7 H Lymph % (Auto) 2.0 L [place] % (Auto) 2.1 Eos % (Auto) 0.0 Baso % (Auto) 1.2 Neut # (Auto) 23.0 H Lymph # (Auto) 0.5 L [place] # (Auto) 0.5 Eos # (Auto) 0.0 Baso # (Auto) 0.3 H CBC Comment DIFF FINAL WBC Differential Total Counted Neutrophils % (Manual) Band Neutrophils % Lymphocytes % Monocytes % Neutrophils # (Manual) Differential Comment Toxic Vacuolation Platelet Estimate Plt Morphology Comment PT INR APTT 30.2 H Puncture Site Patient Temperature HCO3 Base Excess O2 Saturation ABG pH ABG pCO2 ABG pO2 ABG O2 Content ABG Carboxyhemoglobin ABG Methemoglobin Hemoglobin O2 Delivery Device Liter Flow Sodium 126 L Potassium Chloride Carbon Dioxide Anion Gap BUN Creatinine Estimated GFR Random Glucose Lactic Acid Calcium Prot Corrected Calcium Phosphorus Total Bilirubin AST ALT Alkaline Phosphatase Ammonia Total Creatine Kinase CK-MB (CK-2) CK-MB (CK-2) % Troponin I 1.22 H* D B-Natriuretic Peptide Total Protein Albumin TSH 3rd Generation Urine Color Urine Turbidity Urine pH Ur Specific [place] Urine Protein Urine Glucose (UA) Urine Ketones Urine Occult Blood Urine Nitrite Urine Bilirubin Urine Urobilinogen Ur Leukocyte Esterase Urine RBC Urine WBC Hyaline Casts Urine Mucus Micro UA Comment Nasal Screen MRSA (PCR) Vancomycin Trough Salicylates Urine Opiates Screen Acetaminophen Ur Barbiturates Screen Ur Amphetamines Screen U Benzodiazepines Scrn Urine Cocaine Screen U Cannabinoids Screen Ethyl Alcohol 04/01/18 04/01/18 04/01/18 18:40 18:40 18:40 WBC RBC Hgb Hct MCV MCH MCHC RDW Plt Count MPV Neut % (Auto) Lymph % (Auto) [place] % (Auto) Eos % (Auto) Baso % (Auto) Neut # (Auto) Lymph # (Auto) [place] # (Auto) Eos # (Auto) Baso # (Auto) CBC Comment WBC Differential Total Counted Neutrophils % (Manual) Band Neutrophils % Lymphocytes % Monocytes % Neutrophils # (Manual) Differential Comment Toxic Vacuolation Platelet Estimate Plt Morphology Comment PT INR APTT Puncture Site Patient Temperature HCO3 Base Excess O2 Saturation ABG pH ABG pCO2 ABG pO2 ABG O2 Content ABG Carboxyhemoglobin ABG Methemoglobin Hemoglobin O2 Delivery Device Liter Flow Sodium 126 L Potassium 3.4 L Chloride Carbon Dioxide Anion Gap BUN Creatinine Estimated GFR Random Glucose Lactic Acid Calcium Prot Corrected Calcium Phosphorus Total Bilirubin AST ALT Alkaline Phosphatase Ammonia Total Creatine Kinase CK-MB (CK-2) CK-MB (CK-2) % Troponin I 1.11 H* D B-Natriuretic Peptide Total Protein Albumin TSH 3rd Generation Urine Color Urine Turbidity Urine pH Ur Specific [place] Urine Protein Urine Glucose (UA) Urine Ketones Urine Occult Blood Urine Nitrite Urine Bilirubin Urine Urobilinogen Ur Leukocyte Esterase Urine RBC Urine WBC Hyaline Casts Urine Mucus Micro UA Comment Nasal Screen MRSA (PCR) Vancomycin Trough 17.8 H Salicylates Urine Opiates Screen Acetaminophen Ur Barbiturates Screen Ur Amphetamines Screen U Benzodiazepines Scrn Urine Cocaine Screen U Cannabinoids Screen Ethyl Alcohol 04/02/18 04/02/18 04/02/18 06:19 06:19 06:19 WBC RBC Hgb Hct MCV MCH MCHC RDW Plt Count MPV Neut % (Auto) Lymph % (Auto) [place] % (Auto) Eos % (Auto) Baso % (Auto) Neut # (Auto) Lymph # (Auto) [place] # (Auto) Eos # (Auto) Baso # (Auto) CBC Comment WBC Differential Total Counted Neutrophils % (Manual) Band Neutrophils % Lymphocytes % Monocytes % Neutrophils # (Manual) Differential Comment Toxic Vacuolation Platelet Estimate Plt Morphology Comment PT INR APTT Puncture Site Patient Temperature HCO3 Base Excess O2 Saturation ABG pH ABG pCO2 ABG pO2 ABG O2 Content ABG Carboxyhemoglobin ABG Methemoglobin Hemoglobin O2 Delivery Device Liter Flow Sodium 130 L Potassium Chloride Carbon Dioxide Anion Gap BUN Creatinine Estimated GFR Random Glucose Lactic Acid Calcium Prot Corrected Calcium Phosphorus Total Bilirubin AST ALT Alkaline Phosphatase Ammonia Total Creatine Kinase CK-MB (CK-2) CK-MB (CK-2) % Troponin I 0.80 H* B-Natriuretic Peptide Total Protein Albumin TSH 3rd Generation Urine Color Urine Turbidity Urine pH Ur Specific [place] Urine Protein Urine Glucose (UA) Urine Ketones Urine Occult Blood Urine Nitrite Urine Bilirubin Urine Urobilinogen Ur Leukocyte Esterase Urine RBC Urine WBC Hyaline Casts Urine Mucus Micro UA Comment Nasal Screen MRSA (PCR) Vancomycin Trough 18.3 H Salicylates Urine Opiates Screen Acetaminophen Ur Barbiturates Screen Ur Amphetamines Screen U Benzodiazepines Scrn Urine Cocaine Screen U Cannabinoids Screen Ethyl Alcohol 04/02/18 04/02/18 04/02/18 06:19 11:16 11:16 WBC RBC Hgb Hct MCV MCH MCHC RDW Plt Count MPV Neut % (Auto) Lymph % (Auto) [place] % (Auto) Eos % (Auto) Baso % (Auto) Neut # (Auto) Lymph # (Auto) [place] # (Auto) Eos # (Auto) Baso # (Auto) CBC Comment WBC Differential Total Counted Neutrophils % (Manual) Band Neutrophils % Lymphocytes % Monocytes % Neutrophils # (Manual) Differential Comment Toxic Vacuolation Platelet Estimate Plt Morphology Comment PT INR APTT Puncture Site Patient Temperature HCO3 Base Excess O2 Saturation ABG pH ABG pCO2 ABG pO2 ABG O2 Content ABG Carboxyhemoglobin ABG Methemoglobin Hemoglobin O2 Delivery Device Liter Flow Sodium 133 L Potassium 3.8 Chloride Carbon Dioxide Anion Gap BUN Creatinine Estimated GFR Random Glucose Lactic Acid Calcium Prot Corrected Calcium Phosphorus Total Bilirubin AST ALT Alkaline Phosphatase Ammonia Total Creatine Kinase CK-MB (CK-2) CK-MB (CK-2) % Troponin I 0.76 H* B-Natriuretic Peptide Total Protein Albumin TSH 3rd Generation Urine Color Urine Turbidity Urine pH Ur Specific [place] Urine Protein Urine Glucose (UA) Urine Ketones Urine Occult Blood Urine Nitrite Urine Bilirubin Urine Urobilinogen Ur Leukocyte Esterase Urine RBC Urine WBC Hyaline Casts Urine Mucus Micro UA Comment Nasal Screen MRSA (PCR) Vancomycin Trough Salicylates Urine Opiates Screen Acetaminophen Ur Barbiturates Screen Ur Amphetamines Screen U Benzodiazepines Scrn Urine Cocaine Screen U Cannabinoids Screen Ethyl Alcohol 04/02/18 04/02/18 04/03/18 11:16 20:01 03:48 WBC RBC Hgb Hct MCV MCH MCHC RDW Plt Count MPV Neut % (Auto) Lymph % (Auto) [place] % (Auto) Eos % (Auto) Baso % (Auto) Neut # (Auto) Lymph # (Auto) [place] # (Auto) Eos # (Auto) Baso # (Auto) CBC Comment WBC Differential Total Counted Neutrophils % (Manual) Band Neutrophils % Lymphocytes % Monocytes % Neutrophils # (Manual) Differential Comment Toxic Vacuolation Platelet Estimate Plt Morphology Comment PT INR APTT Puncture Site Patient Temperature HCO3 Base Excess O2 Saturation ABG pH ABG pCO2 ABG pO2 ABG O2 Content ABG Carboxyhemoglobin ABG Methemoglobin Hemoglobin O2 Delivery Device Liter Flow Sodium 132 L Potassium 3.5 Chloride 101 Carbon Dioxide 19.6 L Anion Gap 11 BUN 6 L Creatinine 0.51 L Estimated GFR Greater than 89 Random Glucose 113 H 96 Lactic Acid Calcium 7.7 L Prot Corrected Calcium Phosphorus Total Bilirubin 0.3 AST 49 H ALT 22 Alkaline Phosphatase 77 Ammonia Total Creatine Kinase CK-MB (CK-2) CK-MB (CK-2) % Troponin I 0.70 H* B-Natriuretic Peptide Total Protein 5.3 L Albumin 1.8 L TSH 3rd Generation Urine Color Urine Turbidity Urine pH Ur Specific [place] Urine Protein Urine Glucose (UA) Urine Ketones Urine Occult Blood Urine Nitrite Urine Bilirubin Urine Urobilinogen Ur Leukocyte Esterase Urine RBC Urine WBC Hyaline Casts Urine Mucus Micro UA Comment Nasal Screen MRSA (PCR) Vancomycin Trough Salicylates Urine Opiates Screen Acetaminophen Ur Barbiturates Screen Ur Amphetamines Screen U Benzodiazepines Scrn Urine Cocaine Screen U Cannabinoids Screen Ethyl Alcohol 04/03/18 03:48 WBC 9.0 RBC 3.12 L Hgb 9.6 L Hct 28.9 L MCV 92.6 MCH 30.9 MCHC 33.3 RDW 16.9 Plt Count 285 MPV 8.4 Neut % (Auto) 80.0 H Lymph % (Auto) 11.5 [place] % (Auto) 5.9 Eos % (Auto) 2.0 Baso % (Auto) 0.6 Neut # (Auto) 7.2 Lymph # (Auto) 1.0 [place] # (Auto) 0.5 Eos # (Auto) 0.2 Baso # (Auto) 0.1 CBC Comment WBC Differential . Total Counted Neutrophils % (Manual) Band Neutrophils % Lymphocytes % Monocytes % Neutrophils # (Manual) Differential Comment Auto diff final Toxic Vacuolation Platelet Estimate Plt Morphology Comment PT INR APTT Puncture Site Patient Temperature HCO3 Base Excess O2 Saturation ABG pH ABG pCO2 ABG pO2 ABG O2 Content ABG Carboxyhemoglobin ABG Methemoglobin Hemoglobin O2 Delivery Device Liter Flow Sodium Potassium Chloride Carbon Dioxide Anion Gap BUN Creatinine Estimated GFR Random Glucose Lactic Acid Calcium Prot Corrected Calcium Phosphorus Total Bilirubin AST ALT Alkaline Phosphatase Ammonia Total Creatine Kinase CK-MB (CK-2) CK-MB (CK-2) % Troponin I B-Natriuretic Peptide Total Protein Albumin TSH 3rd Generation Urine Color Urine Turbidity Urine pH Ur Specific [place] Urine Protein Urine Glucose (UA) Urine Ketones Urine Occult Blood Urine Nitrite Urine Bilirubin Urine Urobilinogen Ur Leukocyte Esterase Urine RBC Urine WBC Hyaline Casts Urine Mucus Micro UA Comment Nasal Screen MRSA (PCR) Vancomycin Trough Salicylates Urine Opiates Screen Acetaminophen Ur Barbiturates Screen Ur Amphetamines Screen U Benzodiazepines Scrn Urine Cocaine Screen U Cannabinoids Screen Ethyl Alcohol Result Diagrams: 04/03/18 03:48 04/03/18 03:48 Microbiology: Urine cx from 03/31/18 -- Psuedomoans Blood cx from 03/31/18 -- no growth Patient/Family Conference Present at Family Conference: Patient Family Conference Time: 45 Family Conference Location: Bedside Issues Discussed: * Palliative care role, purpose, approach * Additional medical, psychosocial, and spiritual history * Patients general health, functional status, and cognitive changes in the months leading up to the current hospitalization * Patient understanding of the current medical problems * Patient understanding of prognosis * Patients goals of care as best understood from advance directives and/or conversations and/or values * Current medical treatment options and benefits/burdens of those options * Likely scenarios comparing ongoing aggressive care with a transition to comfort measures only * Questions answered to the best of my ability . Assessment and Plan - Disease Oriented Problem List (1) COPD (chronic obstructive pulmonary disease) (2) NSTEMI (non-ST elevated myocardial infarction) (3) Hyponatremia (4) Hypoalbuminemia (5) Anemia (6) Pseudomonas urinary tract infection (7) Pneumonia (8) Peripheral vascular disease - Symptom Scale (1) Dyspnea 0-10 Scale: Unable to quantify (2) Pain Comment: Patient has had chronic lower extremity pain since the 1970s. Pain has been worse since his left lower extremity bypass surgery. Pain is often in the #6-#10 level. Prior to surgery he would use 0-3 5 mg oxycodone tablets a day as well as daily gabapentin. He describes pain at different times as achey and burning. Pertinent Non-Medical Issues: Psychosocial: Originally from [place], [place]. Just moved to [facility] in March 2018. High school education . [place] with service related injuries to lower extremities in . Using a walker in 1972, and became wheel chair bound in 1975. 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 x 1 and . Has one son who lives in [place] Has one brother and 4 sisters. Spiritual: "I'm a believer." No particular denomination. Not interested in neon sign mechanic visits at this time. Legal: Reportedly has completed Advance Directives and has them at home. Ethical issues impacting care: No known ethical issues at this time. Substance Use: == Smoked 1 ppd for most of his adult life. Still actively smokes but probably about 1/2 ppd. == Consumes about 2-3 drinks / week. No known hx of abuse == No known use of illicits. Family History: Father of lung cancer. Mother of "old age." 1 brother and 4 sisters reported to be in good health. No known family history of atherosclerotic vascular disease or chronic lung disease. . Important Contacts: Scot Wang (son and patient's verbally designated health care surrogate) [phone] . Prognosis: This 68 y/o [place] has had 02 dependent COPD for 3 years. He has been wheelchair bound since 1975. He has severe coronary and peripheral vascular disease requiring femoral-popliteal bypass surgery in 03/2018 and suffering a NSTEMI during this admission. He has hyponatremia. He had respiratory insufficiency during this admission that would have resulted in intubation and mechanical ventilation had the patient permitted it. He has recurrent hyponatremia. On this admission he also has an apparent pneumonia and Pseudomonas UTI. Given the above, I would not be surprised if life expectancy were 6 months or less. He would be eiligible for hospice services at such time that his goals are comfort oriented. . Code Status: No Code DNR Plan: == Code Status: No Code -- pt is willing to accept BiPAP but NO intubation, mechanical ventilation, chest compressions, or shock. = Decision making: Patient is capacitated to make his own medical decisions. Should he become incapacitated he would like his son to serve as health care surrogate. He says he has an advance directive indicating this selection but we do not have a copy of a living willl or health care surrogate designation in his record. == Goals of medical treatment: though the patient does NOT want to be resuscitated, he will accept BiPAP and he does want ongoing aggressive care short of resuscitation including surgical procedures, diagnostic testing, hospitalizations, etc. if needed. == Symptoms * Pain: Patient has acute on chronic pain. He has long-standing pain that is probably neuropathic in both lower extremities. He would take gabapentin for this and 0-3 oxycodone per day. Pain has become much worse, moreso in the LLE, since his recent femoro-popliteal bypass surgery on that side. Other sources of discomfort include vascular access lines, urinary catheter, prolonged bedbound status. His current regimen which included IV moprhine and PO hydrocodone as well as gabapentin appears to be adequate. No further recommendations at this time. * Dyspnea: Dyspnea likely secondary to underlying COPD, acute pneumonia, anemia , and possible CAD. Patient is relatively comfortable now on 02 via nasal cannula while at rest. He was in respiratory distress requiring BiPAP earlier in this hospitalization. Anticipate the dyspnea will grow worse as he becomes more active. Optimal treatment will be to treat the underlying problems. Should he require BipAP and remain dyspneic and not want intubation, his opiates and additional benzodiazepines would be good comfort oriented medications. == Patient is NOT hospice appropriate because goals remain aggressive short of resuscitation. == Patient does not seem to have a good understanding of how ill he has been with his underlying COPD, pneumonia, UTI, NC, hyponatremia, and hypotension. He is already frustrated with the hospitalization, but he is likely to return to the hospital again if discharged home too soon. If he is not willing to go to a rehab facility, he could certainly benefit from home health. Given his range of problems , not having a caregiver at home is a concern. == If hyponatremia persists or is recurrent, we may have to consider an occult malignancy. == Palliative care will continue to follow to assist with symptom management and to further clarify goals of medical treatment as the clinical course evolves. Appreciation Thank you for the opportunity to participate in the care of Aron Mcmanus . Attestation Attestation: To help prompt me to consider important information that might be impacting today's encounter and assessment, information from prior notes written by myself or my colleagues may have been "brought forward" into today's note. My signature on this note, however, is an attestation that I personally performed the exam, history, and/or decision-making noted today, and, unless otherwise indicated, the interactions with patient, family, and staff as well as the review of records all occurred today. I also attest that the listed assessment and stated plan reflect my best clinical judgment today based on the combination of historical information, prior notes, and today's exam/ interactions. When time spent is documented, it refers only to time spent today by the signer, or if indicated, combined time spent today by collaborating physician/nurse practitioner. .
--- NOTE | 2018-04-03 12:20 | P.PNCA ---
Subjective Interval history: No events overnight Patient anxious to get home No chest pain Physical Exam Vital signs: Vital Signs 04/02/18 13:00 04/02/18 16:00 04/02/18 16:06 Temperature 98.7 F Pulse Rate 82 88 77 Respiratory Rate 22 14 Blood Pressure 104/57 L Pulse Oximetry 94 L 04/02/18 20:00 04/02/18 21:49 04/02/18 21:50 Temperature 97.7 F Pulse Rate 84 79 Respiratory Rate 13 12 Blood Pressure 131/59 L Pulse Oximetry 96 100 04/02/18 22:00 04/03/18 00:00 04/03/18 04:00 Temperature 98.1 F 97.8 F Pulse Rate 82 83 81 Respiratory Rate 16 14 Blood Pressure 109/56 L 116/63 Pulse Oximetry 96 96 04/03/18 04:52 04/03/18 08:00 04/03/18 10:51 Temperature 98.3 F Pulse Rate 79 80 80 Respiratory Rate 17 9 L 20 Blood Pressure 129/73 Pulse Oximetry 94 L 04/03/18 10:58 04/03/18 12:00 Temperature 98.2 F Pulse Rate 77 Respiratory Rate 10 L Blood Pressure 137/74 Pulse Oximetry 96 99 Intake & Output 04/02/18 04/03/18 04/03/18 18:59 06:59 18:59 Intake Total 1100 / 1100 1480 / 1480 Output Total 850 / 850 400 / 400 Balance 250 / 250 1080 / 1080 Intake: IV 100 / 100 1000 / 1000 Maxipime Inj 2,000 MG In NS Inj 100 / 100 100 ML @ 200 mls/hr IV.SIG Q8H ZULEMA Rx#:[id number] NS Inj 1,000 ML @ 84 mls/hr IV. 1000 / 1000 SIG .[id number] ZULEMA Rx#:[id number] Oral 1000 / 1000 480 / 480 Output: Urine Amount (Catheter) 850 / 850 400 / 400 Condom 850 / 850 400 / 400 Other: Date of Last Bowel Movement 04/03/18 04/02/18 # Bowel Movements 1 1 - Constitutional no acute distress - Routine HEENT Exam Head: Present: normocephalic, atraumatic Eye: Present: EOMI, PERRL ENT: Present: mucous membranes moist - Routine Neck Exam Present: supple, JVD - Routine Respiratory Exam Present: CTA bilaterally. Absent: accessory muscle use - Routine Cardiovascular Exam Present: RRR, S1, S2 - Routine Abdominal Exam Present: soft, normoactive bowel sounds. Absent: tenderness - Routine Extremities Exam Absent: cyanosis, clubbing, edema - Routine Skin Exam Present: intact, dry. Absent: cyanosis, erythema - Routine Neurological Exam Present: alert, oriented X3, CN II-XII intact - Urinary Catheter Management Condom Cath placed during this visit: no Assessment and Plan - Assessment (1) NSTEMI (non-ST elevated myocardial infarction) Code(s): I21.4 - Non-ST elevation (NSTEMI) myocardial infarction Status: Acute (2) SOB (shortness of breath) Code(s): R06.02 - Shortness of breath Status: Acute (3) COPD (chronic obstructive pulmonary disease) Code(s): J44.9 - Chronic obstructive pulmonary disease, unspecified Status: Acute (4) Peripheral vascular disease Code(s): I73.9 - Peripheral vascular disease, unspecified Status: Acute - Plan 1) NSTEMI Most likely type 2 due to significant COPD exacerbation High likelihood of significant CAD due to history of PAD Will not plan on ischemic evaluation at the patient's wishes due to DNR status and refused cath 2) COPD exacerbation s/p intubation and extubation 3) PAD s/p left fem-pop bypass 4) EF 55-60% 5) Con't medical management 6) Agree with palliative care seeing
--- NOTE | 2018-04-03 14:26 | P.PNID ---
Subjective Remarks: Patient is a 68-year-old male, presented to the hospital after he was found by his home health doctor of nursing practice on the floor. He was quite lethargic with altered mental status. Patient has been hospitalized twice recently. The first one was March 13 - March 18 and at that time he was diagnosed to have bilateral lower extremity cellulitis, and he had some gangrenous changes on the toes on his left foot. Vascular saw the patient, and it was decided to have the patient come in for elective surgery to do his revascularization. He was discharged March 18 on Keflex. He was readmitted March 23 after he was found to have significant hyponatremia. He is vascular surgery was postponed. During that admission he underwent left femoropopliteal bypass grafting March 27 and he had a [place]-Abraham graft put in. Podiatry apparently has evaluated the patient, and had recommended amputation of some of the toes on his left foot, but the patient refused. Patient was discharged March 29, and he had home health doctor of nursing practice come to his house twice a day. On the day of admission, he was apparently on his wheelchair, and he passed out. When the home health doctor of nursing practice came that night he was found on the floor, and he was brought into the hospital for further evaluation and treatment. In the ED his vital signs were stable. He has had some low-grade temps. His WBC was up to 22,000. CPK was elevated. Urinalysis had 15 WBC. Chest x-ray with cardiomegaly and pulmonary vascular congestion. Patient had CT of the left lower extremity and there are some postsurgical changes with some gas and some small pockets of fluid. WBC is up to 24,000 today. Cultures are pending. Vascular surgery has evaluated the patient, and felt that there is no evidence of infection in the left lower extremity. Infectious disease consultation has been requested to evaluate the patient with recent bilateral lower extremity cellulitis,? Necrotizing fasciitis. At the time my exam, patient denies any shortness of breath. He has some low-grade temps. His hemodynamics are stable. He is not on pressors. He states he has some smoker's cough, but not does not bring up any significant sputum production. He uses oxygen at home. He denies any chest pain. There is been no nausea or vomiting, no diarrhea or any urinary complaints. He complains of pain in his left lower extremity which has mildly improved since after the surgery. He has significant sensitivity on the left foot when touched which has been the same and has not really worsened. Currently he is on vancomycin and Zosyn. Notes reviewed Has been afebrile BP ok WBC down to normal Leg pain under control blood cultures are negative Urine culture with Pseudomonas pansensitive Hemodynamics good Antibiotics: Cefepime Past Medical History: CHF? Hyperlipidemia PVD Recently treated cellulitis. ?COPD Past Surgical History Ankle surgery Recent L fempop bypass Allergies/Adverse Reactions: Allergies No Known Allergies Allergy (Unverified 03/31/18 14:30) Objective Vital Signs 04/02/18 16:00 04/02/18 16:06 04/02/18 20:00 Temperature 98.7 F 97.7 F Pulse Rate 88 77 84 Respiratory Rate 22 14 13 Blood Pressure 104/57 L 131/59 L Pulse Oximetry 94 L 96 04/02/18 21:49 04/02/18 21:50 04/02/18 22:00 Temperature Pulse Rate 79 82 Respiratory Rate 12 Blood Pressure Pulse Oximetry 100 04/03/18 00:00 04/03/18 04:00 04/03/18 04:52 Temperature 98.1 F 97.8 F Pulse Rate 83 81 79 Respiratory Rate 16 14 17 Blood Pressure 109/56 L 116/63 Pulse Oximetry 96 96 04/03/18 08:00 04/03/18 10:51 04/03/18 10:58 Temperature 98.3 F Pulse Rate 80 80 Respiratory Rate 9 L 20 Blood Pressure 129/73 Pulse Oximetry 94 L 96 04/03/18 12:00 04/03/18 14:08 Temperature 98.2 F Pulse Rate 77 Respiratory Rate 10 L 12 Blood Pressure 137/74 Pulse Oximetry 99 Intake & Output 04/02/18 04/03/18 04/03/18 18:59 06:59 18:59 Intake Total 1100 / 1100 1480 / 1480 Output Total 850 / 850 400 / 400 Balance 250 / 250 1080 / 1080 Intake: IV 100 / 100 1000 / 1000 Maxipime Inj 2,000 MG In NS Inj 100 / 100 100 ML @ 200 mls/hr IV.SIG Q8H ZULEMA Rx#:[id number] NS Inj 1,000 ML @ 84 mls/hr IV. 1000 / 1000 SIG .[id number] ZULEMA Rx#:[id number] Oral 1000 / 1000 480 / 480 Output: Urine Amount (Catheter) 850 / 850 400 / 400 Condom 850 / 850 400 / 400 Other: Date of Last Bowel Movement 04/03/18 04/03/18 # Bowel Movements 1 1 Lab - Hematology Results 03/31/18 04/01/18 04/03/18 15:10 03:27 03:48 WBC 22.6 H 24.3 H 9.0 RBC 3.44 L 2.94 L 3.12 L Hgb 10.4 L 9.0 L 9.6 L Hct 31.3 L 26.6 L 28.9 L MCV 91.1 90.5 92.6 MCH 30.2 30.7 30.9 MCHC 33.2 34.0 33.3 RDW 17.0 16.3 16.9 Plt Count 365 316 285 MPV 8.3 8.0 8.4 Neut % (Auto) 93.5 H 94.7 H 80.0 H Lymph % (Auto) 2.9 L 2.0 L 11.5 [place] % (Auto) 3.3 2.1 5.9 Eos % (Auto) 0.1 0.0 2.0 Baso % (Auto) 0.2 1.2 0.6 Neut # (Auto) 21.1 H 23.0 H 7.2 Lymph # (Auto) 0.7 L 0.5 L 1.0 [place] # (Auto) 0.7 0.5 0.5 Eos # (Auto) 0.0 0.0 0.2 Baso # (Auto) 0.0 0.3 H 0.1 CBC Comment AUTO DIFF DIFF FINAL WBC Differential . Total Counted 100 Neutrophils % (Manual) 77 H Band Neutrophils % 15 H Lymphocytes % 4 L Monocytes % 4 Neutrophils # (Manual) 20.8 H Differential Comment FINAL DIFF MANUAL Auto diff final Toxic Vacuolation PRESENT H Platelet Estimate NORMAL Plt Morphology Comment NORMAL Lab - Chemistry Results 03/31/18 03/31/18 03/31/18 15:10 15:10 15:10 Sodium 120 L* Potassium 4.0 Chloride 85 L Carbon Dioxide 20.6 L Anion Gap 14 BUN 14 Creatinine 0.55 L Estimated GFR 149 POC Glucose Random Glucose 80 Lactic Acid 1.6 Calcium 7.2 L* Prot Corrected Calcium 7.9 L Phosphorus Total Bilirubin 0.7 AST 76 H ALT 12 Alkaline Phosphatase 91 Ammonia 30 Total Creatine Kinase 1214 H CK-MB (CK-2) 9.6 H CK-MB (CK-2) % 0.8 Troponin I 1.21 H* B-Natriuretic Peptide Total Protein 5.7 L Albumin 1.9 L [facility] 3rd Generation 1.780 03/31/18 03/31/18 04/01/18 15:10 18:30 01:09 Sodium 125 L Potassium Chloride Carbon Dioxide Anion Gap BUN Creatinine Estimated GFR POC Glucose Random Glucose Lactic Acid Calcium Prot Corrected Calcium Phosphorus 2.3 L Total Bilirubin AST ALT Alkaline Phosphatase Ammonia Total Creatine Kinase 1432 H 1324 H CK-MB (CK-2) 10.8 H 5.9 H CK-MB (CK-2) % 0.8 0.4 Troponin I 2.44 H* D B-Natriuretic Peptide 1345 H Total Protein Albumin [facility] 3rd Generation 04/01/18 04/01/18 04/01/18 03:27 03:27 13:05 Sodium 126 L 126 L Potassium 2.8 L* D Chloride 92 L Carbon Dioxide 19.7 L Anion Gap 14 BUN 11 Creatinine 0.56 L Estimated GFR 146 POC Glucose Random Glucose 102 Lactic Acid 1.3 Calcium 6.7 L* Prot Corrected Calcium 7.8 L Phosphorus 3.1 Total Bilirubin 0.6 AST 93 H ALT 16 Alkaline Phosphatase 77 Ammonia Total Creatine Kinase CK-MB (CK-2) CK-MB (CK-2) % Troponin I 2.31 H* D 1.22 H* D B-Natriuretic Peptide Total Protein 4.9 L D Albumin 1.6 L [facility] 3rd Generation 04/01/18 04/01/18 04/02/18 18:40 18:40 06:19 Sodium 126 L 130 L Potassium 3.4 L Chloride Carbon Dioxide Anion Gap BUN Creatinine Estimated GFR POC Glucose Random Glucose Lactic Acid Calcium Prot Corrected Calcium Phosphorus Total Bilirubin AST ALT Alkaline Phosphatase Ammonia Total Creatine Kinase CK-MB (CK-2) CK-MB (CK-2) % Troponin I 1.11 H* D B-Natriuretic Peptide Total Protein Albumin [facility] 3rd Generation 04/02/18 04/02/18 04/02/18 06:19 06:19 11:16 Sodium 133 L Potassium 3.8 Chloride Carbon Dioxide Anion Gap BUN Creatinine Estimated GFR POC Glucose Random Glucose Lactic Acid Calcium Prot Corrected Calcium Phosphorus Total Bilirubin AST ALT Alkaline Phosphatase Ammonia Total Creatine Kinase CK-MB (CK-2) CK-MB (CK-2) % Troponin I 0.80 H* B-Natriuretic Peptide Total Protein Albumin [facility] 3rd Generation 04/02/18 04/02/18 04/02/18 11:16 11:16 20:01 Sodium Potassium Chloride Carbon Dioxide Anion Gap BUN Creatinine Estimated GFR POC Glucose Random Glucose 113 H Lactic Acid Calcium Prot Corrected Calcium Phosphorus Total Bilirubin AST ALT Alkaline Phosphatase Ammonia Total Creatine Kinase CK-MB (CK-2) CK-MB (CK-2) % Troponin I 0.76 H* 0.70 H* B-Natriuretic Peptide Total Protein Albumin [facility] 3rd Generation 04/03/18 04/03/18 03:48 12:55 Sodium 132 L Potassium 3.5 Chloride 101 Carbon Dioxide 19.6 L Anion Gap 11 BUN 6 L Creatinine 0.51 L Estimated GFR Greater than 89 POC Glucose 115 H Random Glucose 96 Lactic Acid Calcium 7.7 L Prot Corrected Calcium Phosphorus Total Bilirubin 0.3 AST 49 H ALT 22 Alkaline Phosphatase 77 Ammonia Total Creatine Kinase CK-MB (CK-2) CK-MB (CK-2) % Troponin I B-Natriuretic Peptide Total Protein 5.3 L Albumin 1.8 L [facility] 3rd Generation Physical Exam: Physical Exam GENERAL: awake and alert, not in respiratory distress. SKIN: Cool and dry. No generalized rash HEAD: Atraumatic. Normocephalic. No temporal wasting, or tenderness. EYES: [place] conjunctiva. No petechia or hemorrhage. Pupils equal, round and reactive to light. Extraocular movements full and intact. No scleral icterus. No injection or drainage. EARS, NOSE AND THROAT: Nose without bleeding or purulent nasal discharge. No sinus tenderness. Mucous membranes pink and moist. No oral lesions noted. No exudate. No oral thrush. NECK: Trachea midline. Supple and not tender, no meningeal signs CARDIOVASCULAR: Regular rate and rhythm. No murmurs, rubs or gallops heard RESPIRATORY: Clear to auscultation. Breath sounds equal bilaterally. No rales , wheezing or rhonchi. Decreased breath sounds at bases ABDOMEN: Soft, non-tender, nondistended. Bowel sounds present and normoactive. No guarding. No rebound. No organomegaly. EXTREMITIES: No clubbing, cyanosis. Incision L groin ok, no redness. INcision L medial thigh with some induration, nut no redness, tender to touch, no crepitus. Has some ecchymoses in L upper thigh. L leg not tender. Has swelling L foot, very sensitive to touch, no erythema, has some necrotic changes over his big toe and the 4th band 3rd toes, no odor. LLE, no redness, no tenderness. Both LE has very tight skin. No calf tenderness. NEUROLOGICAL: Grossly non-focal. PSYCHIATRIC: Normal affect, calm and cooperative. LINE: No evidence of infection Assessment and Plan - Plan IMPRESSION Possible sepsis, present on admission - source - LLE looks ok, no cellulitis, wounds ok, clinically no evidence of nec fasc - CT findings prob all post op changes - ?PNA - has mild pyuria, UC with PSAE UTI, PSAE - CT A/P no obstruction PVD with necrotic changes in his toes L foot, S/P revascularization Elevated CPK, ?from fall and post-op Leukocytosis ?Possible acute [place], with elevated troponin RECOMMENDATION Continue Cefepime Monitor temps Follow CBC Monitor progress If no further fever, will switch to oral Cipro in the next day or two and complete total 14 days Abx
[2018-04-03] MEDS ORDERED: Dexmedetomidine Inj 200 MCG/50 ML INFUS..BTL IV.CONT PRN (15:22)
[2018-04-03] MEDS ORDERED: Dexmedetomidine Inj 200 MCG in Sodium Chlor 0.9% Inj 50 ML IV.SIG PRN (15:45)
[2018-04-04] MEDS: Sod Chloride 0.9% Inj 1,000 ML IV.SIG SCH (00:13)
[2018-04-04] MEDS: Lactobacillus Acidophilus/L. Spores Tablet PO SCH ×3 (00:25→20:02)
[2018-04-04] MEDS: Morphine Inj 4 MG/ML Vial IV.PUSH PRN ×4 (02:33→12:32)
[2018-04-04] MEDS: Chlorhexidine Gluconate 2% 1 Pack (2 Cloths) TOPICAL SCH (06:00)
[2018-04-04] MEDS: Insulin NovoLOG Aspart Correctional Sugar Inj SQ SCH ×4 (08:47→22:58)
[2018-04-04] MEDS: Aspirin 325 MG Tablet PO SCH (08:50)
[2018-04-04] MEDS: Gabapentin 400 MG Capsule PO SCH ×5 (08:50→20:03)
[2018-04-04] MEDS: Famotidine PF Inj 20 MG/2 ML Vial IV.PUSH SCH ×2 (08:50→20:04)
[2018-04-04] MEDS: Senna/Docusate Sodium 8.6/50 MG Tablet PO SCH ×2 (08:56→23:10)
--- NOTE | 2018-04-04 10:26 | P.PNCA ---
- Note Subjective/Hospital Course: 04/04/2018 Patient doing well at this time Groin and popliteal incisions are clean and dry with no swelling or drainage Patient has excellent pulse Doppler signal in the graft and popliteal artery Leukocytosis normalized. Exacerbation of the COPD is improving. Patient does have cellulitis of the foot and gangrene of the toes yet he refuses to have surgery done and he refused amputation the last time. Had I known the patient would refuse the surgery for amputation, I would have been very hesitant to do femoropopliteal bypass for there is a risk of infecting the graft from distant site Nothing to add to care at this time Objective: Vital Signs - 24 hr 04/03/18 10:51 04/03/18 10:58 04/03/18 12:00 Temperature 98.2 F Pulse Rate 80 77 Respiratory Rate 20 10 L Blood Pressure 137/74 Pulse Oximetry 96 99 04/03/18 14:08 04/03/18 16:00 04/03/18 16:27 Temperature 98.2 F Pulse Rate 86 85 Respiratory Rate 12 12 10 L Blood Pressure 134/65 Pulse Oximetry 97 04/03/18 20:00 04/03/18 22:04 04/03/18 22:26 Temperature 97.9 F Pulse Rate 97 H 100 H Respiratory Rate 19 19 Blood Pressure 139/72 Pulse Oximetry 92 L 04/03/18 22:27 04/04/18 00:00 04/04/18 02:00 Temperature 98.1 F Pulse Rate 104 H 97 H Respiratory Rate 12 Blood Pressure 149/79 H Pulse Oximetry 97 90 L 04/04/18 04:00 04/04/18 04:09 04/04/18 04:10 Temperature 98.4 F Pulse Rate 104 H 95 H Respiratory Rate 12 19 Blood Pressure 125/97 H Pulse Oximetry 90 L 97 04/04/18 06:00 04/04/18 06:01 04/04/18 08:00 Temperature 98 F Pulse Rate 100 H 85 Respiratory Rate 24 8 L Blood Pressure 125/77 Pulse Oximetry 95 04/04/18 09:33 04/04/18 09:34 Temperature Pulse Rate 88 Respiratory Rate 19 Blood Pressure Pulse Oximetry 96 Labs: Laboratory Results - last 12 hr 04/04/18 08:16 POC Glucose 103 Result Diagrams: 04/03/18 03:48 04/03/18 03:48
--- NOTE | 2018-04-04 11:32 | P.PNPAL ---
Palliative care met with Mr. Wang for ongoing conversation and assistance with advanced directives. Upon entrance into room, RN providing care. Mr. Wang is alert, oriented, and able to make his needs known. He is pleasant throughout most of conversation. Verbalizes he is feeling good, no complaints, no pain, and he is on NC breathing comfortably. Gently reviewed advanced directives. Mr. Wang confirms he has completed advanced directives prior, unable to obtain copies at this time. States his son is working and lives in [place]. Receptive to complete health care surrogate. Answered his questions and concerns. Mr. Wang appoints his son, Scot Wang as health care surrogate. Declines completing living will. Participated in some life review. Mr. Wang verbalizes frustration with multiple hospitalizations spending many weeks in the hospital since he moved to [place]. Desires to go home as quickly as possible. Spoke with case work aide. Currently working on discharge plan to return home with home health care. Updated Dr. Copeland on above. Palliative care will attempt to get Community DNR Order completed to discharge with Mr. Wang if he is receptive to completing. Palliative care will continue to follow throughout hospitalization. Important Contacts Scot Wang, Son/[facility]: #[phone]
--- NOTE | 2018-04-04 12:30 | P.PNID ---
Subjective Remarks: Patient is a 68-year-old male, presented to the hospital after he was found by his home health licensed nursing assistant on the floor. He was quite lethargic with altered mental status. Patient has been hospitalized twice recently. The first one was March 13 - March 18 and at that time he was diagnosed to have bilateral lower extremity cellulitis, and he had some gangrenous changes on the toes on his left foot. Vascular saw the patient, and it was decided to have the patient come in for elective surgery to do his revascularization. He was discharged March 18 on Keflex. He was readmitted March 23 after he was found to have significant hyponatremia. He is vascular surgery was postponed. During that admission he underwent left femoropopliteal bypass grafting March 27 and he had a [place]-Abraham graft put in. Podiatry apparently has evaluated the patient, and had recommended amputation of some of the toes on his left foot, but the patient refused. Patient was discharged March 29, and he had home health licensed nursing assistant come to his house twice a day. On the day of admission, he was apparently on his wheelchair, and he passed out. When the home health licensed nursing assistant came that night he was found on the floor, and he was brought into the hospital for further evaluation and treatment. In the ED his vital signs were stable. He has had some low-grade temps. His WBC was up to 22,000. CPK was elevated. Urinalysis had 15 WBC. Chest x-ray with cardiomegaly and pulmonary vascular congestion. Patient had CT of the left lower extremity and there are some postsurgical changes with some gas and some small pockets of fluid. WBC is up to 24,000 today. Cultures are pending. Vascular surgery has evaluated the patient, and felt that there is no evidence of infection in the left lower extremity. Infectious disease consultation has been requested to evaluate the patient with recent bilateral lower extremity cellulitis,? Necrotizing fasciitis. At the time my exam, patient denies any shortness of breath. He has some low-grade temps. His hemodynamics are stable. He is not on pressors. He states he has some smoker's cough, but not does not bring up any significant sputum production. He uses oxygen at home. He denies any chest pain. There is been no nausea or vomiting, no diarrhea or any urinary complaints. He complains of pain in his left lower extremity which has mildly improved since after the surgery. He has significant sensitivity on the left foot when touched which has been the same and has not really worsened. Currently he is on vancomycin and Zosyn. Notes reviewed Afebrie BP ok WBC down to normal Leg pain under control - no change Blood cultures are negative Urine culture with Pseudomonas pansensitive Hemodynamics good Anxious to go home Antibiotics: Cefepime Lines: PIV Past Medical History: CHF? Hyperlipidemia PVD Recently treated cellulitis. ?COPD Past Surgical History Ankle surgery Recent L fempop bypass Allergies/Adverse Reactions: Allergies No Known Allergies Allergy (Unverified 03/31/18 14:30) Objective Vital Signs 04/03/18 14:08 04/03/18 16:00 04/03/18 16:27 Temperature 98.2 F Pulse Rate 86 85 Respiratory Rate 12 12 10 L Blood Pressure 134/65 Pulse Oximetry 97 04/03/18 20:00 04/03/18 22:04 04/03/18 22:26 Temperature 97.9 F Pulse Rate 97 H 100 H Respiratory Rate 19 19 Blood Pressure 139/72 Pulse Oximetry 92 L 04/03/18 22:27 04/04/18 00:00 04/04/18 02:00 Temperature 98.1 F Pulse Rate 104 H 97 H Respiratory Rate 12 Blood Pressure 149/79 H Pulse Oximetry 97 90 L 04/04/18 04:00 04/04/18 04:09 04/04/18 04:10 Temperature 98.4 F Pulse Rate 104 H 95 H Respiratory Rate 12 19 Blood Pressure 125/97 H Pulse Oximetry 90 L 97 04/04/18 06:00 04/04/18 06:01 04/04/18 08:00 Temperature 98 F Pulse Rate 100 H 85 Respiratory Rate 24 8 L Blood Pressure 125/77 Pulse Oximetry 95 04/04/18 09:33 04/04/18 09:34 Temperature Pulse Rate 88 Respiratory Rate 19 Blood Pressure Pulse Oximetry 96 Intake & Output 04/03/18 04/04/18 04/04/18 18:59 06:59 18:59 Intake Total 1400 / 1400 1920 / 1920 340 / 340 Output Total 950 / 950 1900 / 1900 1600 / 1600 Balance 450 / 450 20 / 20 -1260 / -1260 Intake: IV 800 / 800 720 / 720 100 / 100 Maxipime Inj 2,000 MG In NS Inj 100 / 100 100 / 100 100 ML @ 200 mls/hr IV.SIG Q8H ZULEMA Rx#:[id number] NS Inj 1,000 ML @ 84 mls/hr IV. 700 / 700 720 / 720 SIG .[id number] [facility] Rx#:[id number] Oral 600 / 600 1200 / 1200 240 / 240 Output: Urine Amount (Catheter) 950 / 950 1900 / 1900 1600 / 1600 Condom 950 / 950 1900 / 1900 1600 / 1600 Other: Date of Last Bowel Movement 04/03/18 04/03/18 04/03/18 # Bowel Movements 1 Lab - Hematology Results 04/03/18 03:48 WBC 9.0 RBC 3.12 L Hgb 9.6 L Hct 28.9 L MCV 92.6 MCH 30.9 MCHC 33.3 RDW 16.9 Plt Count 285 MPV 8.4 Neut % (Auto) 80.0 H Lymph % (Auto) 11.5 [place] % (Auto) 5.9 Eos % (Auto) 2.0 Baso % (Auto) 0.6 Neut # (Auto) 7.2 Lymph # (Auto) 1.0 [place] # (Auto) 0.5 Eos # (Auto) 0.2 Baso # (Auto) 0.1 WBC Differential . Differential Comment Auto diff final Lab - Chemistry Results 04/02/18 04/02/18 04/02/18 11:16 11:16 11:16 Sodium 133 L Potassium Chloride Carbon Dioxide Anion Gap BUN Creatinine Estimated GFR POC Glucose Random Glucose 113 H Calcium Total Bilirubin AST ALT Alkaline Phosphatase Troponin I 0.76 H* Total Protein Albumin 04/02/18 04/03/18 04/03/18 20:01 03:48 12:55 Sodium 132 L Potassium 3.5 Chloride 101 Carbon Dioxide 19.6 L Anion Gap 11 BUN 6 L Creatinine 0.51 L Estimated GFR Greater than 89 POC Glucose 115 H Random Glucose 96 Calcium 7.7 L Total Bilirubin 0.3 AST 49 H ALT 22 Alkaline Phosphatase 77 Troponin I 0.70 H* Total Protein 5.3 L Albumin 1.8 L 04/03/18 04/04/18 04/04/18 18:56 08:16 12:07 Sodium Potassium Chloride Carbon Dioxide Anion Gap BUN Creatinine Estimated GFR POC Glucose 117 H 103 85 Random Glucose Calcium Total Bilirubin AST ALT Alkaline Phosphatase Troponin I Total Protein Albumin Physical Exam: Physical Exam GENERAL: awake and alert, not in respiratory distress. SKIN: Cool and dry. No generalized rash HEAD: Atraumatic. Normocephalic. No temporal wasting, or tenderness. EYES: [place] conjunctiva. No petechia or hemorrhage. Pupils equal, round and reactive to light. Extraocular movements full and intact. No scleral icterus. No injection or drainage. EARS, NOSE AND THROAT: Nose without bleeding or purulent nasal discharge. Mucous membranes pink and moist. No oral lesions noted. NECK: Trachea midline. Supple and not tender, no meningeal signs CARDIOVASCULAR: Regular rate and rhythm. No murmurs, rubs or gallops heard RESPIRATORY: Clear to auscultation. Breath sounds equal bilaterally. No rales , wheezing or rhonchi. Decreased breath sounds at bases ABDOMEN: Soft, non-tender, nondistended. Bowel sounds present and normoactive. No guarding. No rebound. No organomegaly. EXTREMITIES: No clubbing, cyanosis. Incision L groin ok, no redness. INcision L medial thigh with some induration, nut no redness, tender to touch, no crepitus. Has some ecchymoses in L upper thigh. L leg not tender. Has swelling L foot, very sensitive to touch, no erythema, has some dry necrotic changes over his big toe and the 4th and 3rd toes, no odor. LLE, no redness, no tenderness. Both LE has very tight skin. No calf tenderness. NEUROLOGICAL: Grossly non-focal. PSYCHIATRIC: Normal affect, calm and cooperative. LINE: No evidence of infection Assessment and Plan - Plan IMPRESSION Possible sepsis, present on admission - source - LLE looks ok, no cellulitis, wounds ok, clinically no evidence of nec fasc - CT findings prob all post op changes - ?PNA - has mild pyuria, UC with PSAE UTI, PSAE - CT A/P no obstruction PVD with necrotic changes in his toes L foot, S/P revascularization Elevated CPK, ?from fall and post-op Leukocytosis ?Possible acute [place], with elevated troponin RECOMMENDATION Change to Levaquin and complete Rx for UTI He is clinically stable from ID standpoint Explained plan to the patient I will be available prn Please call if with any new ID issue or question
--- NOTE | 2018-04-04 16:49 | P.DS ---
Date of admission: 03/31/18 17:08 Primary care physician: Physician '[facility] Brief History from admission: This is a 68-year-old male that presented to the ED with history of altered mental status. Upon presentation the patient patient was lethargic but opens his eyes upon calling his name a few times. H As per the paramedics patient was recently discharged from the hospital after having a left femoropopliteal bypass, with Dr. Luciano. Vital signs were stable upon arrival. Patient says that he has been passing out this morning and hence he called EMS. The patient denied any history of vomiting or diarrhea. The patient complains of bilateral foot pain patient appears to be disheveled. He lives at home, and is cared for by home health nurse. CT imaging studies are pending, lab results reveal a creatinine kinase of 1218, and a significant leukocytosis with a WBC count of 22. Suspicion for necrotizing fasciitis. Vascular surgery Dr. suárez was consulted, recommendations pending. DS: Medications - Discharge Medications Prescriptions: atorvastatin 40 mg PO HS #30 tab carvedilol 3.125 mg PO BID #60 tab DS: Summary Hospital Course: Patient was admitted, started on antibiotics, IV fluids. Infectious disease consulted, deemed that the patient did NOT clinically have necrotizing fasciitis , and helped comanage antibiotics since the patient was found to have PSAE UTI. Patient did have suspected N STEMI and this was thought to have been contributing to his frequent syncopal episodes at home that ultimately led to some rhabdomyolysis with acute renal failure. However declined cardiac catheterization. Palliative care was consulted, patient ultimately wanted full aggressive measures just short of cardiac catheterization and resuscitation. Healthcare surrogate was assigned to the son and the scenario should the patient become incapacitated. Patient's acute encephalopathy, rhabdomyolysis, and electrolyte derangements had resolved. Patient has met maximal benefit from hospitalization is clinically stable for discharge. - Time Spent with Patient Total time spent providing and/or coordinating discharge services: Less than 30 minutes Exam Vital signs: Vital Signs 04/03/18 20:00 04/03/18 22:04 04/03/18 22:26 Temperature 97.9 F Pulse Rate 97 H 100 H Respiratory Rate 19 19 Blood Pressure 139/72 Pulse Oximetry 92 L 04/03/18 22:27 04/04/18 00:00 04/04/18 02:00 Temperature 98.1 F Pulse Rate 104 H 97 H Respiratory Rate 12 Blood Pressure 149/79 H Pulse Oximetry 97 90 L 04/04/18 04:00 04/04/18 04:09 04/04/18 04:10 Temperature 98.4 F Pulse Rate 104 H 95 H Respiratory Rate 12 19 Blood Pressure 125/97 H Pulse Oximetry 90 L 97 04/04/18 06:00 04/04/18 06:01 04/04/18 08:00 Temperature 98 F Pulse Rate 100 H 85 Respiratory Rate 24 8 L Blood Pressure 125/77 Pulse Oximetry 95 04/04/18 09:33 04/04/18 09:34 04/04/18 12:00 Temperature 98.1 F Pulse Rate 88 91 H Respiratory Rate 19 12 Blood Pressure 137/70 Pulse Oximetry 96 96 04/04/18 12:33 04/04/18 14:00 04/04/18 16:00 Temperature 98.4 F Pulse Rate 91 H 100 H Respiratory Rate 12 9 L Blood Pressure 120/61 Pulse Oximetry 96 04/04/18 16:13 04/04/18 16:19 Temperature Pulse Rate 86 87 Respiratory Rate 18 Blood Pressure Pulse Oximetry Intake & Output 04/03/18 04/04/18 04/04/18 18:59 06:59 18:59 Intake Total 1400 / 1400 1920 / 1920 340 / 340 Output Total 950 / 950 1900 / 1900 1600 / 1600 Balance 450 / 450 20 / 20 -1260 / -1260 Intake: IV 800 / 800 720 / 720 100 / 100 Maxipime Inj 2,000 MG In NS Inj 100 / 100 100 / 100 100 ML @ 200 mls/hr IV.SIG Q8H ZULEMA Rx#:[id number] NS Inj 1,000 ML @ 84 mls/hr IV. 700 / 700 720 / 720 SIG .[id number] ZULEMA Rx#:[id number] Oral 600 / 600 1200 / 1200 240 / 240 Output: Urine Amount (Catheter) 950 / 950 1900 / 1900 1600 / 1600 Condom 950 / 950 1900 / 1900 1600 / 1600 Other: Date of Last Bowel Movement 04/03/18 04/03/18 04/03/18 # Bowel Movements 1 Narrative: Heart sounds regular rate rhythm, no murmurs Unlabored breathing, clear lungs bilaterally Results Procedures completed during hospitalization: . Labs on day of discharge: Labs from last 24 hours 04/04/18 04/04/18 04/04/18 13:55 12:07 08:16 POC Glucose 85 103 Total Creatine Kinase 94 04/03/18 18:56 POC Glucose 117 H Total Creatine Kinase Discharge Plan - Discharge Disposition Patient Disposition: W/Home Health Service - Discharge Condition Condition: Stable - Discharge Order Discharge Orders: Discharge Order (Routine); Ordered 04/05/18 Ordered By: Mack Mayes - Discharge Details Anticipated Discharge Date: 04/04/18 Discharge Comment: Patient will need Atorvastatin, Carvedilol, Levofloxacin, and ASA scripts to go home - Physicians Team Primary Care Provider: [facility] Attending Provider: Mack Mayes Other Providers: Hugh Larson MD ; Adelina Griggs MD ; Rahat Le MD ; Kike Toussaint MD ; Joao Lee MD - Rxs /Orders / Referrals /Forms Prescriptions: New atorvastatin 40 mg Tablet 40 mg PO HS Qty: 30 RF: 0 carvedilol 3.125 mg Tablet 3.125 mg PO BID Qty: 60 RF: 0 Continue gabapentin 800 mg Tablet 800 mg PO QID hydrocodone-acetaminophen 7.5-325 mg Tablet 1 tab PO DAILY nicotine 14 mg/24 hr Patch 24 Hour 1 patch TRANSDERMAL DAILY omeprazole 20 mg Capsule,Delayed Release(Dr/Ec) 20 mg PO DAILY sennosides 8.6 mg Tablet 8.6 mg PO BID Discontinued aspirin 81 mg Tablet,Chewable 81 mg PO DAILY cephalexin 500 mg Capsule 500 mg PO Q6H No Action aspirin 325 mg Tablet 325 mg PO DAILY Qty: 30 RF: 0 Lactobacillus acidoph-L.bulgar [Lactinex] 1 million cell Tablet,Chewable 1 tab PO BID Qty: 30 levofloxacin 750 mg Tablet 750 mg PO DAILY Qty: 8 RF: 0 nystatin [Nystop] 100,000 unit/gram Powder 1 applicatio Topical QID Qty: 1 RF: 0 Referrals: Hugh Larson MD [Physician] - See Instructions (Please follow-up with a Embedded Systems Developer at discharge) [facility] [Primary Care Provider] - See Instructions Bertram Luciano MD [Physician] - See Instructions (10 days) Vinod Bradley MD [Physician] - See Instructions (10 days) - Discharge Instructions Patient Printed Instructions: Atorvastatin (By mouth), Levofloxacin (By mouth) , Carvedilol (By mouth), COPD (Chronic Obstructive Pulmonary Disease) (DC) - Post Discharge Care Plan Care Plan Goals: Discharge Care Plan Goals for COPD You have been diagnosed with chronic obstructive pulmonary disease (COPD). This is a name given to a group of diseases that limit the flow of air in and out of your lungs. This makes it harder to breathe. With COPD, you are also more likely to get lung infections. COPD includes chronic bronchitis and emphysema. COPD is most often caused by heavy, long-term cigarette smoking. Directions to Meet your Goals: 1. Quit smoking: * If you smoke, quit. It is the best thing you can do for your COPD and your overall health. * Join a stop-smoking program. There are even telephone, text message, and Internet programs to help you quit. * Ask your doctor about medicines or other methods to help you quit. * Ask family members to quit smoking as well. * Don't allow people to smoke in your home, in your car, or when they are around you. 2. Protect yourself from infection: * Wash your hands often. Do your best to keep your hands away from your face. Most germs are spread from your hands to your mouth. * Get a flu shot every year. Also ask your provider about pneumonia vaccines. * Avoid crowds. It's especially important to do this in the winter when more people have colds and flu. * To stay healthy, get enough sleep, exercise regularly, and eat a balanced diet. You should: -Get about 8 hours of sleep every night. -Try to exercise for at least 30 minutes on most days. -Have healthy foods including fruits and vegetables, 100% whole grains, lean meats and fish, and low-fat dairy products. -Try to stay away from foods high in fats and sugar. 3. Take your medicines: * Take your medicines exactly as directed. Don't skip doses. 4. Manage you stress: Stress can make COPD worse. Use this stress management technique: * Find a quiet place and sit or lie in a comfortable position. * Close your eyes and perform breathing exercises for several minutes. 5. Pulmonary rehabilitation: * Pulmonary rehab can help you feel better. These programs include exercise, breathing techniques, information about COPD, counseling, and help for smokers. * Ask your doctor or your local hospital about programs in your area. 6. When to call your doctor: Call doctor immediately if you have any of the following: Shortness of breath, wheezing, or coughing Increased mucus Yellow, green, bloody, or smelly mucus Fever or chills Tightness in your chest that does not go away with rest or medicine An irregular heartbeat or a feeling that your heart is beating very fast Swollen ankles 7. Follow-up: Do Not miss your follow-up appointment. Keep up with all your appointments and yearly check ups Discharge Care Plan Goals for Heart Attack Directions to Meet your Goals: 1. Home Care: * Take your medicines exactly as directed. Dont skip doses. Talk with your doctor if your medicines aren't working for you. * Remember that recovery after a heart attack takes time. Plan to rest for at least 4 to 8 weeks while you recover. Then return to normal activity when your doctor says its OK. * Join a heart rehabilitation program if recommended by your doctor. This can help strengthen your heart and lungs and give you more energy and confidence. * Tell your doctor if you are feeling depressed. Feelings of sadness are common after a heart attack. But it is important to speak to someone or seek counseling if you are feeling overwhelmed by these feelings. * Call 911 right away if you have chest pain or pain that goes to your shoulder , neck, or back. Don't drive yourself to the hospital. * Ask your family members to learn CPR. This is an important skill that can save lives when it's needed. * Learn to take your own blood pressure and pulse. Keep a record of your results. 2. Diet: You may need to see a registered dietitian for help with these diet changes. These changes may include: * Cutting back on how much fat and cholesterol you eat * Cutting back on how much salt (sodium) you eat, especially if you have high blood pressure * Eating more fresh vegetables and fruits * Eating lean proteins such as fish, poultry, beans, and peas, and eating less red meat and processed meats * Using low-fat dairy products * Using vegetable and nut oils in limited amounts * Limiting how many sweets and processed foods such as chips, cookies, and baked goods you eat * Limiting how often you eat out. And when you do eat out, making better food choices. * Not eating fried or greasy foods, or foods high in saturated fat 3. Exercise and Activity: * Follow your doctor's directions on exercises and activity * If your doctor may recommends that you get moderate to vigorous physical activity, here are few examples of moderate to vigorous activity include: * Walking at a brisk pace, about 3 to 4 miles per hour * Jogging or running * Swimming or water aerobics * Hiking * Dancing * Martial arts * Tennis * Riding a bicycle or stationary bike 4. Lifestyle Modifications: * Weight Management: For Losing weight, making dietary changes and getting more exercise can help. A good goal is to lose your 10% of your body weight in one year. * Stop smoking. Sign up for a stop-smoking program to make it more likely for you to quit for good. You can join a stop-smoking support group. Or ask your doctor about nicotine replacement products. * Stress Management: Learn to manage stress. Stress management techniques to help you deal with stress in your home and work life. This will help you feel better emotionally and ease the strain on your heart. 5. Follow-Up: Do Not miss your follow-up appointment. Keep up with all your appointments and yearly check ups When to call your doctor: Call your doctor right away if you have: Lightheadedness, dizziness, or fainting Feeling of irregular heartbeat or fast pulse Call 911: Call 911 right away if you have: * Chest pain that goes to your neck, jaw, back, or shoulder * Shortness of breath Your Health Problems: Goals to Promote Your Health: * To prevent worsening of your condition * To maintain your health at the optimal level Directions to Meet Your Goals: * Take your medications as prescribed * Follow your dietary instruction * Follow activity as directed * Keep your appointments as scheduled * Take your immunizations and boosters as scheduled * If your symptoms worsen call your PCP * If no PCP go to Urgent Care or Emergency Room Smoking is dangerous to your health. Avoid second hand smoke. You may reach the 24-hour crisis hotline for domestic abuse at .
[2018-04-04] MEDS: levoFLOXacin 750 MG Tablet PO SCH (18:56)
[2018-04-05] MEDS: Insulin NovoLOG Aspart Correctional Sugar Inj SQ SCH (08:55)
[2018-04-05] MEDS: Gabapentin 400 MG Capsule PO SCH ×4 (09:20→13:09)
[2018-04-05] MEDS: Lactobacillus Acidophilus/L. Spores Tablet PO SCH (09:21)
[2018-04-05] MEDS: levoFLOXacin 750 MG Tablet PO SCH (09:21)
[2018-04-05] MEDS: Aspirin 325 MG Tablet PO SCH (09:21)
[2018-04-05] MEDS: Senna/Docusate Sodium 8.6/50 MG Tablet PO SCH (09:22)
--- NOTE | 2018-04-05 10:51 | P.PN ---
Subjective Interval history: Mr. Wang was afebrile with stable VS overnight; patient with HR ~100. Patient requests to go home today; he feels that he can get by due to him typically having home health and having a friend in his neighborhood that can help him until [facility] arrives. Patient agreeable to taking antibiotic prescriptions and following up with physicians after he gets home. No chest pain, shortness of breath, or other concerns currently. Physical Exam Vital signs: Vital Signs 04/04/18 12:00 04/04/18 12:33 04/04/18 14:00 Temperature 98.1 F Pulse Rate 91 H 91 H Respiratory Rate 12 12 Blood Pressure 137/70 Pulse Oximetry 96 04/04/18 16:00 04/04/18 16:13 04/04/18 16:19 Temperature 98.4 F Pulse Rate 100 H 86 87 Respiratory Rate 9 L 18 Blood Pressure 120/61 Pulse Oximetry 96 04/04/18 20:00 04/04/18 20:18 04/05/18 00:00 Temperature 98.1 F Pulse Rate 94 H 96 H Respiratory Rate 10 L 20 21 Blood Pressure 139/79 Pulse Oximetry 95 96 04/05/18 01:35 04/05/18 03:51 04/05/18 04:16 Temperature 98.1 F 98.1 F Pulse Rate 96 H 93 H 90 Respiratory Rate 20 17 Blood Pressure 111/60 125/75 Pulse Oximetry 94 L 96 04/05/18 04:17 04/05/18 04:29 04/05/18 09:27 Temperature Pulse Rate 97 H 90 Respiratory Rate 18 Blood Pressure Pulse Oximetry 98 97 Intake & Output 04/04/18 04/05/18 04/05/18 18:59 06:59 18:59 Intake Total 1060 / 1060 Output Total 2650 / 2650 1450 / 1450 Balance -1590 / -1590 -1450 / -1450 Weight 91.1 kg Intake: IV 100 / 100 Maxipime Inj 2,000 MG In NS Inj 100 / 100 100 ML @ 200 mls/hr IV.SIG Q8H ZULEMA Rx#:[id number] Oral 960 / 960 Output: Urine 1450 / 1450 Urine Amount (Catheter) 2650 / 2650 Condom 2650 / 2650 Other: Date of Last Bowel Movement 04/04/18 04/05/18 # Incontinent Bowel Movements 1 Narrative: GENERAL: NAD SKIN: Cool and dry. No generalized rash HEAD: Atraumatic. Normocephalic. EYES: EOM grossly I CARDIOVASCULAR: Regular rate and rhythm. No murmurs. Normal perfusion RESPIRATORY: CTAB; normal rate. Decreased breath sounds ABDOMEN: Soft, non-tender, nondistended. Bowel sounds present and normoactive. No guarding. No rebound. No organomegaly. EXTREMITIES: Incisions/wounds not uncovered/assessed today. No calf tenderness or asymmetry. Grossly normal ROM and motor function. NEUROLOGICAL: Awake, alert. Grossly normal CN. No focal deficits. PSYCHIATRIC: Normal affect, calm and cooperative. - Urinary Catheter Management Condom Cath placed during this visit: no Results - Labs CBC & Chem 7: 04/03/18 03:48 04/03/18 03:48 Laboratory Results - last 24 hr 04/04/18 04/04/18 04/04/18 12:07 13:55 18:47 POC Glucose 85 159 H Total Creatine Kinase 94 04/05/18 07:52 POC Glucose 90 Total Creatine Kinase Assessment and Plan - Assessment (1) Cellulitis Code(s): L03.90 - Cellulitis, unspecified Status: Acute (2) COPD (chronic obstructive pulmonary disease) Code(s): J44.9 - Chronic obstructive pulmonary disease, unspecified Status: Chronic (3) NSTEMI (non-ST elevated myocardial infarction) Code(s): I21.4 - Non-ST elevation (NSTEMI) myocardial infarction Status: Acute (4) Peripheral vascular disease Code(s): I73.9 - Peripheral vascular disease, unspecified Status: Acute (5) Pseudomonas urinary tract infection Code(s): N39.0 - Urinary tract infection, site not specified; B96.5 - Pseudomonas (aeruginosa) (mallei) (pseudomallei) as the cause of diseases classified elsewhere Status: Acute - Plan Mr. Wang is a 68-year-old male recently hospitalized s/p femoropopliteal bypass with concurrent diagnosis of bilateral foot cellulitis under the direction of infectious disease management, that was recently discharged. Now presenting with altered mental status, electrolyte derangement with severe hyponatremia and possible necrotizing fasciitis. ID Recent history bilateral lower extremity cellulitis UTI (pseudomonas sensitive) Impression: possible sepsis on admission. Source as likely cellulitis; wounds reassuring. CT A/P without obstruction -ID consulted -Can change to Levaquin and d/c with treatmentfor UTI Cardiovascular PAD Impression: s/p L fem - pop bypass by Dr. Luciano; surgical sites clean -Patient w/ celllulitis in LE's with toe gangrene; amputation previously declined NSTEMI Impression: likely from COPD exacerbation. EF 55-60% -Medical management Chronic Paraplegia Syncopal episodes - possibly 2/2 NSTEMI, fall precautions and keep on telemetry Altered mental status -resolved CT brain-no acute abnormality Neuro checks Dilaudid 1 mg every 4 hours for pain scale 6-10 Home O2 dependency/COPD Duo nebs every 4 hours as needed for wheezing BIPAP prn Possible ACS/N STEMI Patient declining invasive cardiac workup. Start aspirin and Lipitor Peripheral vascular disease Starting aspirin and Lipitor S/P left femoropopliteal bypass Rhabdomyolysis Hyponatremia Hyperammonemia DVT PPX lovenox Code Status: DNR Discharge Planning: Discharge today with home health
[2018-04-06] MEDS ORDERED: Pharmacy Ordered Lab Info OTHER ONE (06:45)
== END 2018-04-05 13:35 | disposition home health service (06) ==
LOC: N03 17:08 → N04 04-05 00:12
PROVIDERS: ADMIT Family Medicine; ATTEND Family Medicine

== ENCOUNTER 2018-04-06 16:46 | Inpatient (IN) ==
[2018-04-06] MEDS ORDERED: HYDROmorphone PF Inj 2 MG/ML Vial IV.PUSH ONE (18:21)
[2018-04-06 19:02] LABS: Baso # (Auto) 0.1 th/mm3 (0.0-0.2); Eos # (Auto) 0.2 th/mm3 (0.0-0.4); Eos % (Auto) 3.6 % (0.0-4.0); Hematocrit 33.2 % (39.0-51.0); Hemoglobin 11.3 gm/dL (13.0-17.0); Lymph # (Auto) 1.3 th/mm3 (1.0-4.8); Lymph % (Auto) 19.7 % (9.0-44.0); Mean Corpuscular HGB Conc 34.1 % (32.0-36.0); Mean Corpuscular Hemoglobin 31.6 pg (27.0-34.0); Mean Corpuscular Volume 92.7 fL (80.0-100.0); Mean Platelet Volume 7.8 fL (7.0-11.0); Mono # (Auto) 0.6 th/mm3 (0.0-0.9); Mono % (Auto) 9.5 % (0.0-8.0); Neut # (Auto) 4.2 th/mm3 (1.8-7.7); Neut % (Auto) 66.2 % (16.0-70.0); Platelet Count 421 th/mm3 (150-450); Red Blood Count 3.58 mil/mm3 (4.50-5.90); White Blood Count 6.4 th/mm3 (4.0-11.0)
--- NOTE | 2018-04-06 19:02 | ED ---
HPI General Chief complaint: Back Pain/Injury Stated complaint: Back Pain/Resp comaplint/EVAC Time Seen by Provider: 04/06/18 17:54 History of Present Illness HPI narrative: Is a 68-year-old male presents to the emergency department complaining of leg pain and swelling. He is a history of extensive medical problems including COPD, peripheral vascular disease, paraplegia. He has not known chronic wounds on his legs with gangrene but was refusing toe amputation. He was recently admitted for a non-ST elevation ID and because of peripheral vascular disease and infection underwent femoropopliteal bypass with Dr. Chavarria. He was discharged to home yesterday. He was supposed to continue Levaquin. He states he was unable to get out to fill the prescriptions. He is wheelchair- bound because of paraplegia from trauma in the 70s. He states he has been in his wheelchair with his leg down all day, not so he does. He states he came in today because he had worsening pain and swelling in his legs, especially the left. He is also been unable to get his prescriptions filled. According to records he had been refusing any kind of intervention, significant placement, hospice, or other. He has home health that comes out to his house now for 4 hours a day with an aide, but he states that he needs more help. Related Data Home Medications Medication Instructions Recorded Confirmed Lactobacillus acidoph-L.bulgar 1 tab PO BID 04/01/18 04/06/18 [Lactinex] gabapentin 800 mg PO QID 04/01/18 04/06/18 hydrocodone-acetaminophen 1 tab PO DAILY 04/01/18 04/06/18 nicotine 1 patch TRANSDERMAL DAILY 04/01/18 04/06/18 omeprazole 20 mg PO DAILY 04/01/18 04/06/18 sennosides 8.6 mg PO BID 04/01/18 04/06/18 Previous Rx's Medication Instructions Recorded atorvastatin 40 mg PO HS #30 tab 04/04/18 carvedilol 3.125 mg PO BID #60 tab 04/04/18 levofloxacin 750 mg PO DAILY #8 tab 04/04/18 aspirin 81 mg PO DAILY #30 tab 04/05/18 Allergies Allergy/AdvReac Type Severity Reaction Status Date / Time No Known Allergies Allergy Verified 04/06/18 17:04 Review of Systems ROS Unobtainable All other systems reviewed negative except as stated in HPI [facility] Social History Social History Substance History: No History of Abuse Second Hand Smoke Exposure: Yes Smoking Status: Current every day smoker Tobacco Type: Cigarettes How Often Do You Have a Drink Containing Alcohol: Monthly or less Hx Recent Travel: Yes (Moved here from [facility] about 3 weeks ago) Recent Travel in [facility] within the Last 8 Weeks: No Recent Out of Country Travel within the Last 8 Weeks: No Immunization History Tetanus Immunization: Unable to Assess Hx Influenza Vaccine This Season: Yes Exam Narrative Exam Narrative: GENERAL: 68-year-old man, no acute distress. SKIN: Focused skin assessment warm/dry. HEAD: Atraumatic. Normocephalic. EYES: Pupils equal and round. No scleral icterus. No injection or drainage. ENT: No nasal bleeding or discharge. Mucous membranes pink and moist. NECK: Trachea midline. No JVD. CARDIOVASCULAR: Regular rate and rhythm. No murmur appreciated. RESPIRATORY: No accessory muscle use. Clear to auscultation. Breath sounds equal bilaterally. GASTROINTESTINAL: Abdomen soft, non-tender, nondistended. Hepatic and splenic margins not palpable. MUSCULOSKELETAL: Edema in both lower extremities. Obvious wounds with gangrene to several toes on the left foot. There is rubor and skin loss in the lower extremities suggestive of vascular disease. Paraplegia. NEUROLOGICAL: Awake and alert. No obvious cranial nerve deficits. Paraplegia. Normal speech. Course Initial Documented Vital Signs Temperature 98.0 F 04/06/18 16:52 Last Documented Vital Signs Temperature 98.2 F 04/10/18 04:00 Pulse Rate 94 H 04/10/18 04:58 Respiratory Rate 18 04/10/18 04:58 Blood Pressure 160/75 H 04/10/18 04:00 Pulse Oximetry 93 L 04/10/18 04:58 NIH Stroke Scale NIH Stroke Scale Level of Consciousness: 1-Drowsy Orientation Questions: 0-Answers both correct Responds to Commands: 0-Both tasks correct Gaze Eye Movement: 0-Horizontal movement WNL [employer]: 0-No visual field defect Facial Movement: 1-Minor facial palsy Motor Functions Arm LEFT: 0-No drift Motor Functions Arm RIGHT: 0-No drift Motor Functions Leg LEFT: 1-Drift before 5 seconds Motor Functions Leg RIGHT: 0-No drift Limb Ataxia: 0-No ataxia Sensory Loss: 1-Mild sensory loss Best Language: 0-Normal Articulation: 1-Mild dysarthia Extinction or Inattention Sensory: 0-Absent Total: 5 Medical Decision Making MDM Narrative Medical decision making narrative: This 68-year-old man, very chronically ill including paraplegia, severe peripheral vascular disease, chronic lower extremity wounds that are healing, medical care refusal, poor social support. It seems like his problems are related to his worsening cellulitis because he could not get his antibiotics, and is dependent legs in his wheelchair. Discussed extensively what his goals were. I reviewed his palliative care consult from Dr. Copeland. Reviewed his recent medical records. Seems like he would benefit from keeping his legs more elevated, being able to fill his antibiotics, and f[facility] rehab. He apparently had been refusing that in the past. I spoke with him about this in detail, he is agreeable to a short course of [facility] rehabilitation for treatment of his lower extremity wounds. I spoke with case management. Benefit from [facility]. She placed some initial consultations. Patient will be admitted. Lab Data Result diagrams: 04/08/18 22:08 04/08/18 22:08 Lab Results 04/06/18 04/06/18 04/07/18 Range/Units 18:36 18:36 07:22 WBC 6.4 5.0 (4.0-11.0) th/mm3 RBC 3.58 L 3.26 L (4.50-5.90) mil/mm3 Hgb 11.3 L 10.1 L (13.0-17.0) gm/dL POC Hgb (Calc) (13.0-17.0) g/dL Hct 33.2 L 30.0 L (39.0-51.0) % POC Hct (39-51.0) % MCV 92.7 92.0 (80.0-100.0) fL MCH 31.6 31.1 (27.0-34.0) pg MCHC 34.1 33.7 (32.0-36.0) % RDW 17.0 17.0 (11.6-17.2) % Plt Count 421 D 410 (150-450) th/mm3 MPV 7.8 7.4 (7.0-11.0) fL Neut % (Auto) 66.2 51.8 (16.0-70.0) % Lymph % (Auto) 19.7 26.3 (9.0-44.0) % [place] % (Auto) 9.5 H 14.2 H (0.0-8.0) % Eos % (Auto) 3.6 6.6 H (0.0-4.0) % Baso % (Auto) 1.0 1.1 (0.0-2.0) % Neut # (Auto) 4.2 2.6 (1.8-7.7) th/mm3 Lymph # (Auto) 1.3 1.3 (1.0-4.8) th/mm3 [place] # (Auto) 0.6 0.7 (0.0-0.9) th/mm3 Eos # (Auto) 0.2 0.3 (0.0-0.4) th/mm3 Baso # (Auto) 0.1 0.1 (0.0-0.2) th/mm3 WBC Differential . . Differential Comment Auto diff final Auto diff final PT (9.8-11.6) sec INR Ratio APTT (24.3-30.1) sec Fibrinogen (227-377) mg/dL POC Sodium (137-144) mmol/L Sodium 132 L (136-145) meq/L POC Potassium (3.6-5.0) mmol/L Potassium 3.7 (3.5-5.1) meq/L POC Chloride (102-111) mmol/L Chloride 95 L (98-107) meq/L Carbon Dioxide 26.7 (21.0-32.0) meq/L Anion Gap 10 (5-15) meq/L POC BUN (5-21) mg/dL BUN 3 L (7-18) mg/dL Creatinine 0.55 L (0.60-1.30) mg/dL POC Creatinine (0.6-1.3) mg/dL Estimated GFR Greater than 89 (>89) mL/min POC Glucose (68-110) mg/dl Random Glucose 89 (74-106) mg/dL Calcium 8.4 L (8.5-10.1) mg/dL Prot Corrected Calcium (8.5-10.1) mg/dL Total Bilirubin 0.5 (0.2-1.0) mg/dL AST 23 (15-37) U/L ALT 23 (12-78) U/L Alkaline Phosphatase 110 (45-117) U/L Total Creatine Kinase (39-308) U/L Troponin I (0.02-0.05) ng/mL Total Protein 6.4 D (6.4-8.2) g/dL Albumin 2.2 L (3.4-5.0) g/dL Triglycerides (42-150) mg/dL Cholesterol (120-200) mg/dL LDL Cholesterol, Calc (0-99) mg/dL HDL Cholesterol (40.0-60.0) mg/dL Cholesterol/HDL Ratio Ratio Nasal Screen MRSA (PCR) (Negative) Blood Type Antibody Screen 04/07/18 04/08/18 04/08/18 Range/Units 07:22 21:36 21:46 WBC (4.0-11.0) th/mm3 RBC (4.50-5.90) mil/mm3 Hgb (13.0-17.0) gm/dL POC Hgb (Calc) (13.0-17.0) g/dL Hct (39.0-51.0) % POC Hct (39-51.0) % MCV (80.0-100.0) fL MCH (27.0-34.0) pg MCHC (32.0-36.0) % RDW (11.6-17.2) % Plt Count (150-450) th/mm3 MPV (7.0-11.0) fL Neut % (Auto) (16.0-70.0) % Lymph % (Auto) (9.0-44.0) % [place] % (Auto) (0.0-8.0) % Eos % (Auto) (0.0-4.0) % Baso % (Auto) (0.0-2.0) % Neut # (Auto) (1.8-7.7) th/mm3 Lymph # (Auto) (1.0-4.8) th/mm3 [place] # (Auto) (0.0-0.9) th/mm3 Eos # (Auto) (0.0-0.4) th/mm3 Baso # (Auto) (0.0-0.2) th/mm3 WBC Differential Differential Comment PT 11.6 (9.8-11.6) sec INR 1.1 Ratio APTT 25.4 (24.3-30.1) sec Fibrinogen 361 (227-377) mg/dL POC Sodium (137-144) mmol/L Sodium 135 L (136-145) meq/L POC Potassium (3.6-5.0) mmol/L Potassium 3.8 (3.5-5.1) meq/L POC Chloride (102-111) mmol/L Chloride 99 (98-107) meq/L Carbon Dioxide 27.3 (21.0-32.0) meq/L Anion Gap 9 (5-15) meq/L POC BUN (5-21) mg/dL BUN 3 L (7-18) mg/dL Creatinine 0.43 L (0.60-1.30) mg/dL POC Creatinine (0.6-1.3) mg/dL Estimated GFR Greater than 89 (>89) mL/min POC Glucose 189 H (68-110) mg/dl Random Glucose 85 (74-106) mg/dL Calcium 7.9 L (8.5-10.1) mg/dL Prot Corrected Calcium (8.5-10.1) mg/dL Total Bilirubin 0.5 (0.2-1.0) mg/dL AST 19 (15-37) U/L ALT 19 (12-78) U/L Alkaline Phosphatase 90 (45-117) U/L Total Creatine Kinase (39-308) U/L Troponin I (0.02-0.05) ng/mL Total Protein 5.5 L D (6.4-8.2) g/dL Albumin 1.9 L (3.4-5.0) g/dL Triglycerides (42-150) mg/dL Cholesterol (120-200) mg/dL LDL Cholesterol, Calc (0-99) mg/dL HDL Cholesterol (40.0-60.0) mg/dL Cholesterol/HDL Ratio Ratio Nasal Screen MRSA (PCR) (Negative) Blood Type Antibody Screen 04/08/18 04/08/18 04/08/18 Range/Units 22:08 22:08 22:08 WBC 6.7 (4.0-11.0) th/mm3 RBC 2.87 L (4.50-5.90) mil/mm3 Hgb 8.8 L (13.0-17.0) gm/dL POC Hgb (Calc) 8.5 L (13.0-17.0) g/dL Hct 26.7 L (39.0-51.0) % POC Hct 25.0 L (39-51.0) % MCV 93.0 (80.0-100.0) fL MCH 30.8 (27.0-34.0) pg MCHC 33.1 (32.0-36.0) % RDW 17.4 H (11.6-17.2) % Plt Count 378 (150-450) th/mm3 MPV 7.2 (7.0-11.0) fL Neut % (Auto) (16.0-70.0) % Lymph % (Auto) (9.0-44.0) % [place] % (Auto) (0.0-8.0) % Eos % (Auto) (0.0-4.0) % Baso % (Auto) (0.0-2.0) % Neut # (Auto) (1.8-7.7) th/mm3 Lymph # (Auto) (1.0-4.8) th/mm3 [place] # (Auto) (0.0-0.9) th/mm3 Eos # (Auto) (0.0-0.4) th/mm3 Baso # (Auto) (0.0-0.2) th/mm3 WBC Differential Differential Comment PT (9.8-11.6) sec INR Ratio APTT (24.3-30.1) sec Fibrinogen (227-377) mg/dL POC Sodium 129 L (137-144) mmol/L Sodium 133 L (136-145) meq/L POC Potassium 4.2 (3.6-5.0) mmol/L Potassium 4.2 (3.5-5.1) meq/L POC Chloride 94 L (102-111) mmol/L Chloride 99 (98-107) meq/L Carbon Dioxide 23.7 (21.0-32.0) meq/L Anion Gap 10 (5-15) meq/L POC BUN 6 (5-21) mg/dL BUN 7 (7-18) mg/dL Creatinine 0.81 (0.60-1.30) mg/dL POC Creatinine 0.6 (0.6-1.3) mg/dL Estimated GFR Greater than 89 (>89) mL/min POC Glucose 160 H (68-110) mg/dl Random Glucose 166 H (74-106) mg/dL Calcium 7.1 L* D (8.5-10.1) mg/dL Prot Corrected Calcium 8.2 L (8.5-10.1) mg/dL Total Bilirubin (0.2-1.0) mg/dL AST (15-37) U/L ALT (12-78) U/L Alkaline Phosphatase (45-117) U/L Total Creatine Kinase 91 (39-308) U/L Troponin I 1.25 H* (0.02-0.05) ng/mL Total Protein 5.0 L (6.4-8.2) g/dL Albumin (3.4-5.0) g/dL Triglycerides (42-150) mg/dL Cholesterol (120-200) mg/dL LDL Cholesterol, Calc (0-99) mg/dL HDL Cholesterol (40.0-60.0) mg/dL Cholesterol/HDL Ratio Ratio Nasal Screen MRSA (PCR) (Negative) Blood Type A Positive Antibody Screen Negative 04/08/18 04/09/18 Range/Units 23:00 13:05 WBC (4.0-11.0) th/mm3 RBC (4.50-5.90) mil/mm3 Hgb (13.0-17.0) gm/dL POC Hgb (Calc) (13.0-17.0) g/dL Hct (39.0-51.0) % POC Hct (39-51.0) % MCV (80.0-100.0) fL MCH (27.0-34.0) pg MCHC (32.0-36.0) % RDW (11.6-17.2) % Plt Count (150-450) th/mm3 MPV (7.0-11.0) fL Neut % (Auto) (16.0-70.0) % Lymph % (Auto) (9.0-44.0) % [place] % (Auto) (0.0-8.0) % Eos % (Auto) (0.0-4.0) % Baso % (Auto) (0.0-2.0) % Neut # (Auto) (1.8-7.7) th/mm3 Lymph # (Auto) (1.0-4.8) th/mm3 [place] # (Auto) (0.0-0.9) th/mm3 Eos # (Auto) (0.0-0.4) th/mm3 Baso # (Auto) (0.0-0.2) th/mm3 WBC Differential Differential Comment PT (9.8-11.6) sec INR Ratio APTT (24.3-30.1) sec Fibrinogen (227-377) mg/dL POC Sodium (137-144) mmol/L Sodium (136-145) meq/L POC Potassium (3.6-5.0) mmol/L Potassium (3.5-5.1) meq/L POC Chloride (102-111) mmol/L Chloride (98-107) meq/L Carbon Dioxide (21.0-32.0) meq/L Anion Gap (5-15) meq/L POC BUN (5-21) mg/dL BUN (7-18) mg/dL Creatinine (0.60-1.30) mg/dL POC Creatinine (0.6-1.3) mg/dL Estimated GFR (>89) mL/min POC Glucose (68-110) mg/dl Random Glucose (74-106) mg/dL Calcium (8.5-10.1) mg/dL Prot Corrected Calcium (8.5-10.1) mg/dL Total Bilirubin (0.2-1.0) mg/dL AST (15-37) U/L ALT (12-78) U/L Alkaline Phosphatase (45-117) U/L Total Creatine Kinase (39-308) U/L Troponin I (0.02-0.05) ng/mL Total Protein (6.4-8.2) g/dL Albumin (3.4-5.0) g/dL Triglycerides 81 (42-150) mg/dL Cholesterol 95 L (120-200) mg/dL LDL Cholesterol, Calc 48 (0-99) mg/dL HDL Cholesterol 30.4 L (40.0-60.0) mg/dL Cholesterol/HDL Ratio 3.12 Ratio Nasal Screen MRSA (PCR) Not detected (Negative) Blood Type Antibody Screen Imaging Data Radiologist's impression: ITS Impressions Foot X-Ray 04/07/18 18:20 CONCLUSION: 1. Incompletely healed comminuted fracture involving the left first distal phalanx. 2. No acute fracture or dislocation. 3. Diffuse osteoporosis. 4. Tiny plantar calcaneal spur. Foot X-Ray 04/08/18 00:00 CONCLUSION: Postsurgical changes with amputation at the distal metatarsal levels. Head CT 04/08/18 21:43 CONCLUSION: 1. No acute intracranial abnormalities. Partial opacification of the mastoid air cells bilaterally. Head CTA 04/08/18 21:51 CONCLUSION: 1. Negative CTA brain. Neck CTA 04/08/18 21:51 CONCLUSION: 1. No carotid stenosis. Atherosclerotic plaque around the carotid bifurcations. Right vertebral artery not patent within the neck but may reconstitute distally. The left vertebral artery and basilar artery are patent. Findings called to Dr. Pena. Discharge Plan Discharge Disposition Patient Disposition: 30 Still Patient Physicians Team ED Provider: Marcel Prieto Primary Care Provider: Primary Care Juanita,Doris Attending Provider: Dhruv Tobias Other Providers: [facility], ; 1 Moneta,Lori Greenwood ; Lori Greenwood, Agency ; Bertram Luciano ; Arelis Awad ; Jb Pena Discharge Interventions Interventions: ED Discharge Assessment Last Done: 04/06/18 20:53 Vital Signs Last Done: 04/06/18 16:57 Status ED Status: Left Department Discharge Information Discharge Date/Time: 04/06/18 20:55
[2018-04-06 19:18] LABS: Albumin 2.2 g/dL (3.4-5.0); Anion Gap 10 meq/L (5-15); Aspartate Aminotransferase 23 U/L (15-37); Blood Urea Nitrogen 3 mg/dL (7-18); Calcium 8.4 mg/dL (8.5-10.1); Carbon Dioxide 26.7 meq/L (21.0-32.0); Chloride 95 meq/L (98-107); Glomerular Filtration Rate Greater Than 89 mL/min (>89); Glucose,Random 89 mg/dL (74-106); Potassium 3.7 meq/L (3.5-5.1); Sodium 132 meq/L (136-145)
[2018-04-06 19:22] LABS: Alanine Aminotransferase 23 U/L (12-78); Alkaline Phosphatase 110 U/L (45-117); Total Protein 6.4 g/dL (6.4-8.2)
[2018-04-06] MEDS ORDERED: Bisacodyl 10 MG Supp RECTAL PRN (20:04)
[2018-04-06] MEDS: Senna/Docusate Sodium 8.6/50 MG Tablet PO SCH (23:05)
[2018-04-06] MEDS: Gabapentin 400 MG Capsule PO SCH (23:05)
[2018-04-06] MEDS: Heparin - SQ 10,000 UNITS/ML Vial SQ SCH (23:05)
[2018-04-07] MEDS ORDERED: Naloxone Inj 0.4 MG/ML Vial IV.PUSH PRN (00:57)
[2018-04-07] MEDS ORDERED: Acetaminophen 325 MG Tablet PO PRN (00:57)
[2018-04-07] MEDS: Sod Chloride 0.9% Inj 1,000 ML IV.CONT SCH ×3 (01:10→20:56)
[2018-04-07 07:49] LABS: Baso # (Auto) 0.1 th/mm3 (0.0-0.2); Baso % (Auto) 1.1 % (0.0-2.0); Eos # (Auto) 0.3 th/mm3 (0.0-0.4); Eos % (Auto) 6.6 % (0.0-4.0); Hemoglobin 10.1 gm/dL (13.0-17.0); Lymph # (Auto) 1.3 th/mm3 (1.0-4.8); Lymph % (Auto) 26.3 % (9.0-44.0); Mean Corpuscular HGB Conc 33.7 % (32.0-36.0); Mean Corpuscular Hemoglobin 31.1 pg (27.0-34.0); Mean Platelet Volume 7.4 fL (7.0-11.0); Mono # (Auto) 0.7 th/mm3 (0.0-0.9); Mono % (Auto) 14.2 % (0.0-8.0); Neut # (Auto) 2.6 th/mm3 (1.8-7.7); Neut % (Auto) 51.8 % (16.0-70.0); Platelet Count 410 th/mm3 (150-450); Red Blood Count 3.26 mil/mm3 (4.50-5.90)
[2018-04-07 08:01] LABS: Albumin 1.9 g/dL (3.4-5.0); Anion Gap 9 meq/L (5-15); Aspartate Aminotransferase 19 U/L (15-37); Blood Urea Nitrogen 3 mg/dL (7-18); Calcium 7.9 mg/dL (8.5-10.1); Carbon Dioxide 27.3 meq/L (21.0-32.0); Chloride 99 meq/L (98-107); Glomerular Filtration Rate Greater Than 89 mL/min (>89); Glucose,Random 85 mg/dL (74-106); Potassium 3.8 meq/L (3.5-5.1); Sodium 135 meq/L (136-145)
[2018-04-07 08:02] LABS: Alanine Aminotransferase 19 U/L (12-78)
[2018-04-07 08:04] LABS: Alkaline Phosphatase 90 U/L (45-117); Total Protein 5.5 g/dL (6.4-8.2)
[2018-04-07] MEDS: Senna/Docusate Sodium 8.6/50 MG Tablet PO SCH ×2 (08:37→20:51)
[2018-04-07] MEDS: Pantoprazole Sodium 20 MG DR Tablet PO SCH (08:37)
[2018-04-07] MEDS: levoFLOXacin 750 MG Tablet PO SCH (08:38)
[2018-04-07] MEDS: Heparin - SQ 10,000 UNITS/ML Vial SQ SCH ×2 (08:38→20:50)
[2018-04-07] MEDS: Gabapentin 400 MG Capsule PO SCH ×4 (08:38→20:49)
--- NOTE | 2018-04-07 14:04 | P.HPIM ---
History of Present Illness Primary Care Physician: No Primary Care Physician Chief Complaint: Left leg pain History of Present Illness: 68-year-old male with a medical history significant for COPD, peripheral vascular disease, paraplegia who recently had femoral popliteal bypass with Dr. Chavarria. Patient had significant revascularization down to his ankle, however the left foot remain gangrenous due to [place] vessel disease. A partial foot amputation was recommended, however the patient refused any intervention. He returned to the hospital with complaint of worsening left leg pain. On my evaluation today, he indicated that he is willing to go through with surgery. Of note the patient was discharged 2 days ago after he was treated for Pseudomonas UTI and lower extremity cellulitis. The patient also had evidence of NSTEMI during the last hospitalization but he refused any invasive cardiac workup. He was treated medically. The patient was discharged on Levaquin and heart medications. However he did not start any of these medications. The patient denies any fevers or chills. He is shortness of breath is at baseline. No chest pain. - Diagnosis (1) Gangrene of left foot (2) Peripheral vascular disease (3) COPD (chronic obstructive pulmonary disease) (4) Cellulitis Inpatient Certification: I certify that the inpatient services were ordered in accordance with Medicare regulations governing the order. This includes certification that hospital inpatient services are reasonable and necessary and in the case of services not specified as inpatient-only under 42 CFR 419.22(n), that they are appropriately provided as inpatient services in accordance to with the 2-midnight benchmark under 43 CFR 412.3(e) Estimated Total Length of Stay (Days): 5 Plans for Post Hospital Care: SNF Review of Systems All other systems reviewed negative except as stated in HPI [facility] - History History Provided By: Patient, Office Manager Receptionist / EMT - Medical History Medical History: Medical History (Last Reviewed 04/07/18 @ 13:46 by Dimitri Traore MD) CHF (congestive heart failure) - Surgical History Surgical History: Surgical History (Last Reviewed 04/07/18 @ 13:46 by Dimitri Traore MD) Status post femoral-popliteal bypass surgery - Family History Family History: Family History (Last Updated 04/03/18 @ 11:25 by Reji Copeland MD) Father Family history of cancer - Tobacco History Second Hand Smoke Exposure: Yes Tobacco Use In Past 30 Days: Yes Smoking Status: Current every day smoker Tobacco Type: Cigarettes - Alcohol History How Often Do You Have a Drink Containing Alcohol: Monthly or less - Substance Use History Substance History: No History of Abuse - Travel History History of Recent Travel: Yes (Moved here from [facility] about 3 weeks ago) Recent Travel in the [facility] Within the Last 8 Weeks: No Recent Travel Out of the Country Within the Last 8 Weeks: No - Immunization History Tetanus Immunization: Unable to Assess Hx Influenza Vaccine This Season: Yes Medications and Allergies Active Medications: Active Medications Acetaminophen (Tylenol) 650 mg PO Q6HR PRN PRN Reason: PAIN SCALE 1 TO 2 Hydrocodone Bitart/Acetaminophen ([place] 5/325) 1 tab PO Q4H PRN PRN Reason: PAIN SCALE 3 TO 5 Hydrocodone Bitart/Acetaminophen ([place] 7.5/325) 1 tab PO Q4H PRN PRN Reason: PAIN SCALE 6 TO 10 Last Admin: 04/07/18 12:03 Dose: 1 tab Al Hydroxide/Mg Hydroxide (Milk Of Magnesia Liq) 30 ml PO Q12H PRN PRN Reason: Mild Constipation Aspirin (Aspirin Chew) 81 mg PO DAILY [facility] Last Admin: 04/07/18 08:37 Dose: 81 mg Atorvastatin Calcium (Lipitor) 40 mg PO HS [facility] Last Admin: 04/06/18 23:05 Dose: 40 mg Bisacodyl (Dulcolax Supp) 10 mg RECTAL DAILY PRN PRN Reason: SEVERE CONSITIPATION Carvedilol (Coreg) 3.125 mg PO BID [facility] Last Admin: 04/07/18 08:37 Dose: 3.125 mg Gabapentin (Neurontin) 800 mg PO QID [facility] Last Admin: 04/07/18 12:03 Dose: 800 mg Heparin Sodium (Porcine) (Heparin Inj) 5,000 units SQ Q12H [facility] Last Admin: 04/07/18 08:38 Dose: 5,000 units Sodium Chloride (Ns Inj) 1,000 mls @ 100 mls/hr IV.CONT .Q10H [facility] Last Admin: 04/07/18 12:03 Dose: 100 mls/hr Lactulose (Lactulose Liq) 30 ml PO DAILY PRN PRN Reason: SEVERE CONSITIPATION Levofloxacin (Levaquin) 750 mg PO DAILY [facility] Last Admin: 04/07/18 08:38 Dose: 750 mg Naloxone HCl (Narcan Inj) 0.4 mg IV.PUSH UNSCH PRN PRN Reason: SEE LABEL COMMENTS Nicotine (Habitrol 14 Mg Patch.24 Hr) 1 patch T-DERMAL DAILY [facility] Last Admin: 04/07/18 10:58 Dose: 1 patch Pantoprazole Sodium (Protonix) 20 mg PO DAILY [facility] Last Admin: 04/07/18 08:37 Dose: 20 mg Patch Removal (Remove Old Patch) 1 each T-DERMAL Q24H [facility] Senna/Docusate Sodium (Felicia-Colace) 1 tab PO BID [facility] Last Admin: 04/07/18 08:37 Dose: 1 tab Sennosides (Senokot) 8.6 mg PO BID [facility] Last Admin: 04/07/18 12:04 Dose: 8.6 mg Sennosides (Senokot) 17.2 mg PO Q12H PRN PRN Reason: Moderate Constipation Temazepam (Restoril) 15 mg PO HS PRN PRN Reason: INSOMNIA Allergies Allergy/AdvReac Type Severity Reaction Status Date / Time No Known Allergies Allergy Verified 04/06/18 17:04 Home Medications Medication Instructions Recorded Confirmed Type Lactobacillus acidoph-L.bulgar 1 tab PO BID 04/01/18 04/06/18 History [Lactinex] gabapentin 800 mg PO QID 04/01/18 04/06/18 History hydrocodone-acetaminophen 1 tab PO DAILY 04/01/18 04/06/18 History nicotine 1 patch TRANSDERMAL DAILY 04/01/18 04/06/18 History omeprazole 20 mg PO DAILY 04/01/18 04/06/18 History sennosides 8.6 mg PO BID 04/01/18 04/06/18 History Exam Vital signs: Vital Signs 04/06/18 16:52 04/06/18 16:57 04/06/18 19:20 Temperature 98.0 F 98.6 F Pulse Rate 109 H Respiratory Rate 20 16 Blood Pressure 147/70 H Pulse Oximetry 90 L 04/06/18 20:00 04/07/18 00:00 04/07/18 03:34 Temperature 99.2 F 97.4 F L 97.7 F Pulse Rate 88 104 H 86 Respiratory Rate 20 18 16 Blood Pressure 130/78 139/70 136/61 Pulse Oximetry 78 L 95 93 L 04/07/18 12:00 Temperature 98.2 F Pulse Rate 88 Respiratory Rate 22 Blood Pressure 130/66 Pulse Oximetry 98 Intake & Output 04/06/18 04/07/18 04/07/18 18:59 06:59 18:59 Intake Total 1000 / 1000 Output Total 500 / 500 Balance 500 / 500 Weight 81.647 kg Intake: IV 1000 / 1000 NS Inj 1,000 ML @ 100 mls/hr IV 1000 / 1000 .CONT .Q10H [facility] Rx#:[id number] Output: Urine 500 / 500 Narrative: GENERAL: Patient appears older than stated age, in no apparent distress. CARDIOVASCULAR: Normal rate and regular rhythm without murmurs, gallops, or rubs. RESPIRATORY: Diminished breath sounds throughout otherwise clear to auscultation. GASTROINTESTINAL: Abdomen soft, non-tender, non-distended. Normal active bowel sounds MUSCULOSKELETAL: Left foot with multiple gangrenous toes. Foot is warm but I am unable to palpate a pulse. NEURO: Alert & Oriented x4 to person, place, time, situation. Moves all ext x4 PSYCH: Appropriate mood and affect. Results - Labs CBC & Chem 7: 04/07/18 07:22 04/07/18 07:22 Labs: Short CBC 04/06/18 04/07/18 Range/Units 18:36 07:22 WBC 6.4 5.0 (4.0-11.0) th/mm3 Hgb 11.3 L 10.1 L (13.0-17.0) gm/dL Hct 33.2 L 30.0 L (39.0-51.0) % Plt Count 421 D 410 (150-450) th/mm3 BMP 04/06/18 04/07/18 18:36 07:22 Sodium 132 L 135 L Potassium 3.7 3.8 Chloride 95 L 99 Carbon Dioxide 26.7 27.3 BUN 3 L 3 L Creatinine 0.55 L 0.43 L Calcium 8.4 L 7.9 L Liver Function 04/06/18 04/07/18 Range/Units 18:36 07:22 Total Bilirubin 0.5 0.5 (0.2-1.0) mg/dL AST 23 19 (15-37) U/L ALT 23 19 (12-78) U/L Alkaline Phosphatase 110 90 (45-117) U/L Albumin 2.2 L 1.9 L (3.4-5.0) g/dL Caprini VTE Risk Assessment Caprini VTE Risk Assessment: Moderate/High Risk (score >= 2) Caprini Risk Assessment Model: Point Value = 1 Point Value = 2 Point Value = 3 Point Value = 5 Age 41-60 Minor surgery BMI > 25 kg/m2 Swollen legs Varicose veins or History of unexplained or recurrent spontaneous Oral contraceptives or hormone replacement Sepsis (< 1 month) Serious lung disease, including pneumonia (< 1 month) Abnormal pulmonary function Acute myocardial infarction Congestive heart failure (< 1 month) History of inflammatory bowel disease Medical patient at bed rest Age 61-74 Arthroscopic surgery Major open surgery (> 45 min) Laparoscopic surgery (> 45 min) Malignancy Confined to bed (> 72 hours) Immobilizing plaster cast Central venous access Age >= 75 History of VTE Family history of VTE Factor V Leiden Prothrombin [id number] Lupus anticoagulant Anticardiolipin antibodies Elevated serum homocysteine Heparin-induced thrombocytopenia Other congenital or acquired thrombophilia Stroke (< 1 month) Elective arthroplasty Hip, pelvis, or leg fracture Acute spinal cord injury (< 1 month) Prophylaxis Regimen: Total Risk Factor Score Risk Level Prophylaxis Regimen 0-1 Low Early ambulation 2 Moderate Order ONE of the following: *Sequential Compression Device (SCD) *Heparin 5000 units SQ BID 3-4 Higher Order ONE of the following medications: *Heparin 5000 units SQ TID *Enoxaparin/Lovenox 40 mg SQ daily (WT < 150 kg, CrCl > 30 mL/min) *Enoxaparin/Lovenox 30 mg SQ daily (WT < 150 kg, CrCl > 10-29 mL/min) *Enoxaparin/Lovenox 30 mg SQ BID (WT < 150 kg, CrCl > 30 mL/min) AND/OR *Sequential Compression Device (SCD) 5 or more Highest Order ONE of the following medications: *Heparin 5000 units SQ TID (Preferred with Epidurals) *Enoxaparin/Lovenox 40 mg SQ daily (WT < 150 kg, CrCl > 30 mL/min) *Enoxaparin/Lovenox 30 mg SQ daily (WT < 150 kg, CrCl > 10-29 mL/min) *Enoxaparin/Lovenox 30 mg SQ BID (WT < 150 kg, CrCl > 30 mL/min) AND *Sequential Compression Device (SCD) Assessment and Plan - Assessment (1) Gangrene of left foot Code(s): I96 - Gangrene, not elsewhere classified Status: Acute Plan: Patient is status post revascularization by Dr. Chavarria. Partial amputation of the left foot previously recommended. However he has been refusing. He is now agreeable to proceed with surgery. Consult Dr. Chavarria Continue aspirin and Lipitor (2) Peripheral vascular disease Code(s): I73.9 - Peripheral vascular disease, unspecified Status: Acute Plan: Status post femoral popliteal bypass. See above. Lifestyle modification discussed. Continue aspirin and Lipitor. pain control. (3) COPD (chronic obstructive pulmonary disease) Code(s): J44.9 - Chronic obstructive pulmonary disease, unspecified Status: Chronic Plan: Duo nebs and supplemental oxygen as needed. (4) Cellulitis Code(s): L03.90 - Cellulitis, unspecified Status: Acute Plan: We will continue Levaquin for now. Left groin area appeared to have a fungal rash. Started nystatin powder. H&P: Quality - VTE Deep Vein Thrombosis/Pulmonary Embolism Present on Admission: No
--- NOTE | 2018-04-07 16:32 | P.PNCA ---
- Note Subjective/Hospital Course: 04/07/2018 Patient known from previous admissions. Patient is paraparetic and uses likes to move himself stooped from bed to chair and such. Several weeks ago he underwent successful left femoral-popliteal bypass with endarterectomy and at that time was advised to have a forefoot/necrotic toes amputated by podiatry. Patient refused this and went home and then returned back with a non-STEMI and remain several days in the hospital. He then again left and decided to go home prior to having any other surgery Developed Pseudomonas urosepsis and states he is too weak to take care of himself at home so he is back now On physical exam left groin incision is well healed and dry although patient has not taken a shower or washed it at all Popliteal incision is clean and dry and well-healed Patient has excellent doppler signal in the popliteal artery and very weak posterior tibial pulse Foot is warm but the toes are gangrenous Discussed with patient at length and he agrees to forefoot amputation saw Dr. Awad podiatry has been consulted. Eventually patient will require right femoral-popliteal bypass but this is something we will discuss in the future. Objective: Vital Signs - 24 hr 04/06/18 16:52 04/06/18 16:57 04/06/18 19:20 Temperature 98.0 F 98.6 F Pulse Rate 109 H Respiratory Rate 20 16 Blood Pressure 147/70 H Pulse Oximetry 90 L 04/06/18 20:00 04/07/18 00:00 04/07/18 03:34 Temperature 99.2 F 97.4 F L 97.7 F Pulse Rate 88 104 H 86 Respiratory Rate 20 18 16 Blood Pressure 130/78 139/70 136/61 Pulse Oximetry 78 L 95 93 L 04/07/18 12:00 04/07/18 16:00 Temperature 98.2 F 98.0 F Pulse Rate 88 80 Respiratory Rate 22 20 Blood Pressure 130/66 120/60 Pulse Oximetry 98 98 Labs: Laboratory Results - last 12 hr 04/07/18 04/07/18 07:22 07:22 WBC 5.0 RBC 3.26 L Hgb 10.1 L Hct 30.0 L MCV 92.0 MCH 31.1 MCHC 33.7 RDW 17.0 Plt Count 410 MPV 7.4 Neut % (Auto) 51.8 Lymph % (Auto) 26.3 [place] % (Auto) 14.2 H Eos % (Auto) 6.6 H Baso % (Auto) 1.1 Neut # (Auto) 2.6 Lymph # (Auto) 1.3 [place] # (Auto) 0.7 Eos # (Auto) 0.3 Baso # (Auto) 0.1 WBC Differential . Differential Comment Auto diff final Sodium 135 L Potassium 3.8 Chloride 99 Carbon Dioxide 27.3 Anion Gap 9 BUN 3 L Creatinine 0.43 L Estimated GFR Greater than 89 Random Glucose 85 Calcium 7.9 L Total Bilirubin 0.5 AST 19 ALT 19 Alkaline Phosphatase 90 Total Protein 5.5 L D Albumin 1.9 L Result Diagrams: 04/07/18 07:22 04/07/18 07:22
--- NOTE | 2018-04-07 18:20 | P.CONPOD ---
History of Present Illness Service: Foot and ankle surgery/podiatry Consult date: 04/07/18 Reason for Consult: Left foot gangrene Primary Care Provider: No Primary Care Physician Family Provider: No Primary Care Physician Chief Complaint: Left leg pain History of Present Illness: Podiatry consulted for this 68-year-old male with a medical history for COPD, paraplegia who recently had a femoropopliteal Matt peripheral vascular disease , bypass with Dr. Duong Patient had significant revascularization down to his ankle however left forefoot remains gangrenous due to [place] vessel disease. Partial foot amputation was recommended upon last admission however patient refused any intervention. He returned to the hospital with complaint of worsening left leg pain. On evaluation he indicated to the hospitalist that he is willing to go through with surgery. Patient was discharged 2 days ago after he was treated for pseudomonal UTI and lower extremity cellulitis. Patient also had evidence of an STEMI during last hospitalization but he refused any invasive cardiac workup. Patient was treated medically for this. Patient was discharged on Levaquin and heart medications, however he did not start any of his medications. He denies any nausea vomiting fevers or chills or chest pain. Review of Systems Constitutional: Denies body ache(s), Denies chills, Denies fever(s), Denies night sweats Eyes: Denies blind spots, Denies blurry vision Ears, Nose, Mouth, and Throat: Reports abnormal hearing Cardiovascular: Denies chest pain Respiratory: Denies cough, Denies shortness of breath Gastrointestinal: Denies abdominal pain PMFSH - History History Provided By: Patient, Wholesale Parts Salesperson / EMT - Medical History Medical History: Medical History (Last Reviewed 04/07/18 @ 18:16 by Arelis Awad DPM) CHF (congestive heart failure) - Surgical History Surgical History: Surgical History (Last Reviewed 04/07/18 @ 18:16 by Arelis Awad DPM) Status post femoral-popliteal bypass surgery - Family History Family History: Family History (Last Reviewed 04/07/18 @ 18:16 by Arelis Awad DPM) Father Family history of cancer - Tobacco History Second Hand Smoke Exposure: Yes Tobacco Use In Past 30 Days: Yes Smoking Status: Current every day smoker Tobacco Type: Cigarettes - Alcohol History How Often Do You Have a Drink Containing Alcohol: Monthly or less - Substance Use History Substance History: No History of Abuse - Travel History History of Recent Travel: Yes (Moved here from [facility] about 3 weeks ago) Recent Travel in the [place] Within the Last 8 Weeks: No Recent Travel Out of the Country Within the Last 8 Weeks: No - Immunization History Tetanus Immunization: Unable to Assess Hx Influenza Vaccine This Season: Yes Medications and Allergies Active Medications: Active Medications Acetaminophen (Tylenol) 650 mg PO Q6HR PRN PRN Reason: PAIN SCALE 1 TO 2 Last Admin: 04/07/18 17:40 Dose: 650 mg Hydrocodone Bitart/Acetaminophen ([place] 5/325) 1 tab PO Q4H PRN PRN Reason: PAIN SCALE 3 TO 5 Hydrocodone Bitart/Acetaminophen ([place] 7.5/325) 1 tab PO Q4H PRN PRN Reason: PAIN SCALE 6 TO 10 Last Admin: 04/07/18 16:30 Dose: 1 tab Al Hydroxide/Mg Hydroxide (Milk Of Magnesia Liq) 30 ml PO Q12H PRN PRN Reason: Mild Constipation Albuterol (Duoneb Neb (Prn)) 1 ampul NEB Q4HR NEB PRN PRN Reason: SHORTNESS OF BREATH/WHEEZING Aspirin (Aspirin Chew) 81 mg PO DAILY [facility] Last Admin: 04/07/18 08:37 Dose: 81 mg Atorvastatin Calcium (Lipitor) 40 mg PO HS [facility] Last Admin: 04/06/18 23:05 Dose: 40 mg Bisacodyl (Dulcolax Supp) 10 mg RECTAL DAILY PRN PRN Reason: SEVERE CONSITIPATION Carvedilol (Coreg) 3.125 mg PO BID [facility] Last Admin: 04/07/18 08:37 Dose: 3.125 mg Gabapentin (Neurontin) 800 mg PO QID [facility] Last Admin: 04/07/18 17:41 Dose: 800 mg Heparin Sodium (Porcine) (Heparin Inj) 5,000 units SQ Q12H [facility] Last Admin: 04/07/18 08:38 Dose: 5,000 units Sodium Chloride (Ns Inj) 1,000 mls @ 100 mls/hr IV.CONT .Q10H [facility] Last Admin: 04/07/18 12:03 Dose: 100 mls/hr Lactulose (Lactulose Liq) 30 ml PO DAILY PRN PRN Reason: SEVERE CONSITIPATION Levofloxacin (Levaquin) 750 mg PO DAILY [facility] Last Admin: 04/07/18 08:38 Dose: 750 mg Naloxone HCl (Narcan Inj) 0.4 mg IV.PUSH UNSCH PRN PRN Reason: SEE LABEL COMMENTS Nicotine (Habitrol 14 Mg Patch.24 Hr) 1 patch T-DERMAL DAILY [facility] Last Admin: 04/07/18 10:58 Dose: 1 patch Nystatin (Mycostatin Powder) 1 applicatio TOPICAL QID [facility] Pantoprazole Sodium (Protonix) 20 mg PO DAILY [facility] Last Admin: 04/07/18 08:37 Dose: 20 mg Patch Removal (Remove Old Patch) 1 each T-DERMAL Q24H [facility] Senna/Docusate Sodium (Felicia-Colace) 1 tab PO BID [facility] Last Admin: 04/07/18 08:37 Dose: 1 tab Sennosides (Senokot) 8.6 mg PO BID [facility] Last Admin: 04/07/18 12:04 Dose: 8.6 mg Sennosides (Senokot) 17.2 mg PO Q12H PRN PRN Reason: Moderate Constipation Temazepam (Restoril) 15 mg PO HS PRN PRN Reason: INSOMNIA Allergies Allergy/AdvReac Type Severity Reaction Status Date / Time No Known Allergies Allergy Verified 04/06/18 17:04 Home Medications Medication Instructions Recorded Confirmed Type Lactobacillus acidoph-L.bulgar 1 tab PO BID 04/01/18 04/06/18 History [Lactinex] gabapentin 800 mg PO QID 04/01/18 04/06/18 History hydrocodone-acetaminophen 1 tab PO DAILY 04/01/18 04/06/18 History nicotine 1 patch TRANSDERMAL DAILY 04/01/18 04/06/18 History omeprazole 20 mg PO DAILY 04/01/18 04/06/18 History sennosides 8.6 mg PO BID 04/01/18 04/06/18 History Physical Exam Vital signs: Vital Signs 04/06/18 19:20 04/06/18 20:00 04/07/18 00:00 Temperature 99.2 F 97.4 F L Pulse Rate 88 104 H Respiratory Rate 16 20 18 Blood Pressure 130/78 139/70 Pulse Oximetry 78 L 95 04/07/18 03:34 04/07/18 12:00 04/07/18 16:00 Temperature 97.7 F 98.2 F 98.0 F Pulse Rate 86 88 80 Respiratory Rate 16 22 20 Blood Pressure 136/61 130/66 120/60 Pulse Oximetry 93 L 98 98 04/07/18 17:33 Temperature Pulse Rate Respiratory Rate 5 L Blood Pressure Pulse Oximetry Intake & Output 04/06/18 04/07/18 04/07/18 18:59 06:59 18:59 Intake Total 1000 / 1000 Output Total 500 / 500 Balance 500 / 500 Weight 81.647 kg Intake: IV 1000 / 1000 NS Inj 1,000 ML @ 100 mls/hr IV 1000 / 1000 .CONT .Q10H [facility] Rx#:[id number] Output: Urine 500 / 500 Narrative: GENERAL: This is a well-nourished, well-developed patient, in no apparent distress. SKIN: HEAD: Atraumatic. EYES: Pupils equal round and reactive. ENT: Airway patent. NECK: Trachea midline. RESPIRATORY: Nonlabored breathing. MUSCULOSKELETAL:. Negative Homans sign bilaterally. NEUROLOGICAL: Awake and alert. Normal speech. Lower extremity physical exam: Vascular: Dorsalis pedis nonpalpable, posterior tibial nonpalpable. Capillary refill time delayed to digits 5 bilateral foot. Edema present left foot Neuro: Gross sensation intact to bilateral lower extremity. Pinpoint sensation decreased. No hyperalgesia noted to bilateral lower extremity Dermatology: Normal temperature and turgor to bilateral lower extremity. Thin shiny atrophic skin. Multiple gangrenous lesions noted to left hallux, left fifth digit, left fourth digit. Ischemia noted globally to entire left fourth digit as well as lateral side of the third. Left heel ulceration noted with dry eschar base and surrounding deep tissue injury. Musculoskeletal: Tender to palpation to left foot globally and diffusely. Results - Labs CBC & Chem 7: 04/07/18 07:22 04/07/18 07:22 Laboratory Results - last 24 hr 04/06/18 04/06/18 04/07/18 18:36 18:36 07:22 WBC 6.4 5.0 RBC 3.58 L 3.26 L Hgb 11.3 L 10.1 L Hct 33.2 L 30.0 L MCV 92.7 92.0 MCH 31.6 31.1 MCHC 34.1 33.7 RDW 17.0 17.0 Plt Count 421 D 410 MPV 7.8 7.4 Neut % (Auto) 66.2 51.8 Lymph % (Auto) 19.7 26.3 [place] % (Auto) 9.5 H 14.2 H Eos % (Auto) 3.6 6.6 H Baso % (Auto) 1.0 1.1 Neut # (Auto) 4.2 2.6 Lymph # (Auto) 1.3 1.3 [place] # (Auto) 0.6 0.7 Eos # (Auto) 0.2 0.3 Baso # (Auto) 0.1 0.1 WBC Differential . . Differential Comment Auto diff final Auto diff final Sodium 132 L Potassium 3.7 Chloride 95 L Carbon Dioxide 26.7 Anion Gap 10 BUN 3 L Creatinine 0.55 L Estimated GFR Greater than 89 Random Glucose 89 Calcium 8.4 L Total Bilirubin 0.5 AST 23 ALT 23 Alkaline Phosphatase 110 Total Protein 6.4 D Albumin 2.2 L 04/07/18 07:22 WBC RBC Hgb Hct MCV MCH MCHC RDW Plt Count MPV Neut % (Auto) Lymph % (Auto) [place] % (Auto) Eos % (Auto) Baso % (Auto) Neut # (Auto) Lymph # (Auto) [place] # (Auto) Eos # (Auto) Baso # (Auto) WBC Differential Differential Comment Sodium 135 L Potassium 3.8 Chloride 99 Carbon Dioxide 27.3 Anion Gap 9 BUN 3 L Creatinine 0.43 L Estimated GFR Greater than 89 Random Glucose 85 Calcium 7.9 L Total Bilirubin 0.5 AST 19 ALT 19 Alkaline Phosphatase 90 Total Protein 5.5 L D Albumin 1.9 L Assessment and Plan - Plan 68-year-old male with left foot forefoot gangrene, left foot heel ulcer Patient examined evaluated with all questions answered Discussed with patient surgical options as well as conservative intervention Patient states he like to proceed with surgical intervention he would like one definitive surgery rather than multiple digital amputations States he does not walk and only transfers on his left lower extremity He agrees with surgical intervention to left foot transmetatarsal amputation N.p.o. after midnight Obtain surgical consent for left transmetatarsal amputation Left heel deep tissue injury noted Multi-Podus boot ordered for offloading
[2018-04-07] MEDS: Nystatin 100,000 UNITS/GM Powder 15 GM Bottle TOPICAL SCH ×2 (18:22→20:51)
--- NOTE | 2018-04-07 19:02 | XR ---
EXAM DATE: 04/07/2018 6:55 PM EDT AGE/SEX: 68 years / Male INDICATIONS: Left foot pain, fungal infection. CLINICAL DATA: This is the patient's initial encounter. Patient reports that signs and symptoms have been present for 2 weeks and indicates a pain score of 10/10. MEDICAL/SURGICAL HISTORY: None. . Pins and screws in left ankle. COMPAR[place]: [facility] [place][id number]), 03/13/2018. . FINDINGS: There is evidence of a incompletely healed comminuted fracture involving the left first distal phalan x. Diffuse osteoporosis of the bones of the left foot is noted. Screws are noted within the distal ti chelo and fibula. No acute fracture or dislocation is noted. Tiny plantar calcaneal spur is noted. CONCLUSION: 1. Incompletely healed comminuted fracture involving the left first distal phalanx. 2. No acute fracture or dislocation. 3. Diffuse osteoporosis. 4. Tiny plantar calcaneal spur. Electronically signed by: Uri Echols MD 04/07/2018 7:01 PM EDT
[2018-04-08] MEDS ORDERED: Chlorhexidine Gluconate 2% 1 Pack (2 Cloths) TOPICAL SCH (00:30)
[2018-04-08] MEDS ORDERED: Sodium Chlor 0.9% Inj 500 ML IV.SIG SCH (01:00)
[2018-04-08] MEDS: Senna/Docusate Sodium 8.6/50 MG Tablet PO SCH (08:09)
[2018-04-08] MEDS: Pantoprazole Sodium 20 MG DR Tablet PO SCH (08:09)
[2018-04-08] MEDS: levoFLOXacin 750 MG Tablet PO SCH (08:10)
[2018-04-08] MEDS: Gabapentin 400 MG Capsule PO SCH ×3 (08:10→17:59)
[2018-04-08] MEDS: Heparin - SQ 10,000 UNITS/ML Vial SQ SCH (08:12)
[2018-04-08] MEDS: Nystatin 100,000 UNITS/GM Powder 15 GM Bottle TOPICAL SCH (08:13)
--- NOTE | 2018-04-08 10:19 | P.PN ---
Subjective Interval history: Follow-up visit COPD, PVD, paraplegia, left foot gangrene. Patient seen and examined today. States he had a horrible night secondary to pain. States that the pain medication is not helping him out, pain is located on the left foot, rated 10/10, aggravated by touching or movement, unrelieved by current pain management and patient is asking for IV pain medication. Patient is to go to surgery today for amputation. Discussed extensively that he is going to get some pain relief especially that he is going to the OR to get anesthetic. We will adjust his pain medication when he comes out of the operating room. Otherwise, Denies pain and discomfort. Denies SOB/ dyspnea. Denies chest pain , palpitations, headaches, dizziness. Denies fevers, chills, n/v/d. Denies hematuria, dysuria. Physical Exam Vital signs: Vital Signs 04/07/18 12:00 04/07/18 16:00 04/07/18 17:33 Temperature 98.2 F 98.0 F Pulse Rate 88 80 Respiratory Rate 22 20 5 L Blood Pressure 130/66 120/60 Pulse Oximetry 98 98 04/07/18 19:18 04/07/18 23:35 04/08/18 03:54 Temperature 98.2 F 97.6 F 97.6 F Pulse Rate 86 80 81 Respiratory Rate 16 18 18 Blood Pressure 118/63 118/66 127/66 Pulse Oximetry 96 93 L 96 Intake & Output 04/07/18 04/08/18 04/08/18 18:59 06:59 18:59 Intake Total 1000 / 1000 1000 / 1000 Output Total 500 / 500 Balance 500 / 500 1000 / 1000 Intake: IV 1000 / 1000 1000 / 1000 NS Inj 1,000 ML @ 100 mls/hr IV 1000 / 1000 1000 / 1000 .CONT .Q10H ZULEMA Rx#:[id number] Output: Urine 500 / 500 Narrative: GENERAL: This is a well-nourished, well-developed patient, in no apparent distress. SKIN: Warm and dry. HEENT: Normocephalic. Pupils equal round and reactive. Nose without bleeding. Airway patent. NECK: Trachea midline. No JVD. Supple. CARDIOVASCULAR: Regular rate and rhythm without murmurs, gallops, or rubs. RESPIRATORY: Clear to auscultation. Breath sounds equal bilaterally. No wheezes , rales, or rhonchi. GASTROINTESTINAL: Abdomen soft, non-tender, nondistended. Bowel Sounds normoactive x4. MUSCULOSKELETAL: Extremities without clubbing, cyanosis. Left lower extremity tenderness, necrosis gangrene noted forefoot, left foot ulcer NEUROLOGICAL: Awake and alert. Oriented to place, person. No focal neuro deficit. Moves all extremities. Normal speech. Results - Labs CBC & Chem 7: 04/07/18 07:22 04/07/18 07:22 - Imaging Impressions Foot X-Ray 04/07/18 18:20 CONCLUSION: 1. Incompletely healed comminuted fracture involving the left first distal phalanx. 2. No acute fracture or dislocation. 3. Diffuse osteoporosis. 4. Tiny plantar calcaneal spur. Assessment and Plan - Assessment (1) Gangrene of left foot Code(s): I96 - Gangrene, not elsewhere classified Status: Acute Plan: Patient is status post revascularization by Dr. Chavarria. Partial amputation of the left foot previously recommended. However he has been refusing. He is now agreeable to proceed with surgery. Consult Dr. Chavarria Continue aspirin and Lipitor (2) Peripheral vascular disease Code(s): I73.9 - Peripheral vascular disease, unspecified Status: Acute Plan: Status post femoral popliteal bypass. See above. Lifestyle modification discussed. Continue aspirin and Lipitor. pain control. (3) COPD (chronic obstructive pulmonary disease) Code(s): J44.9 - Chronic obstructive pulmonary disease, unspecified Status: Chronic Plan: Duo nebs and supplemental oxygen as needed. (4) Cellulitis Code(s): L03.90 - Cellulitis, unspecified Status: Acute Plan: We will continue Levaquin for now. Left groin area appeared to have a fungal rash. Started nystatin powder. - Plan 68-year-old male with a medical history significant for COPD, peripheral vascular disease, paraplegia who recently had femoral popliteal bypass with Dr. Chavarria. Patient had significant revascularization down to his ankle Gangrene of left foot -Patient is status post revascularization by Dr. Chavarria. Partial amputation of the left foot previously recommended. However he has been refusing. He is now agreeable to proceed with surgery. -Consult Dr. Lin, appreciate recommendations -Consult Dr. Awad, evaluated patient plan for surgical intervention today. Continue aspirin and Lipitor Peripheral vascular disease -Status post femoral popliteal bypass. See above. Lifestyle modification discussed. -Continue aspirin and Lipitor. -Pain control. COPD (chronic obstructive pulmonary disease), not in exacerbation -Duo nebs and supplemental oxygen as needed. Cellulitis -Continue Levaquin for now. -Left groin area appeared to have a fungal rash. Started nystatin powder. DVT prop hold off on chemoprophylaxis as patient is going to surgery today. Plan for chemoprophylaxis post surgical intervention by surgeon. Code Status: Full code Discussed Condition With: Patient, nurse Discharge Planning: Plan to discharge home when clinically improved, pending surgical intervention.
--- NOTE | 2018-04-08 10:34 | P.PNPOD ---
Subjective Interval history: Patient seen in preop. Nursing and anesthesia bedside. Patient agrees with plan surgical procedure. Patient understands that all digits will be amputated and his forefoot will be gone, to left foot Physical Exam Vital signs: Vital Signs 04/07/18 12:00 04/07/18 16:00 04/07/18 17:33 Temperature 98.2 F 98.0 F Pulse Rate 88 80 Respiratory Rate 22 20 5 L Blood Pressure 130/66 120/60 Pulse Oximetry 98 98 04/07/18 19:18 04/07/18 23:35 04/08/18 03:54 Temperature 98.2 F 97.6 F 97.6 F Pulse Rate 86 80 81 Respiratory Rate 16 18 18 Blood Pressure 118/63 118/66 127/66 Pulse Oximetry 96 93 L 96 Intake & Output 04/07/18 04/08/18 04/08/18 18:59 06:59 18:59 Intake Total 1000 / 1000 1000 / 1000 Output Total 500 / 500 Balance 500 / 500 1000 / 1000 Intake: IV 1000 / 1000 1000 / 1000 NS Inj 1,000 ML @ 100 mls/hr IV 1000 / 1000 1000 / 1000 .CONT .Q10H ZULEMA Rx#:[id number] Output: Urine 500 / 500 Narrative: Lower extremity physical exam: Vascular: Dorsalis pedis nonpalpable, posterior tibial nonpalpable. Capillary refill time delayed to digits 5 bilateral foot. Edema present left foot Neuro: Gross sensation intact to bilateral lower extremity. Pinpoint sensation decreased. No hyperalgesia noted to bilateral lower extremity Dermatology: Normal temperature and turgor to bilateral lower extremity. Thin shiny atrophic skin. Multiple gangrenous lesions noted to left hallux, left fifth digit, left fourth digit. Ischemia noted globally to entire left fourth digit as well as lateral side of the third. Left heel ulceration noted with dry eschar base and surrounding deep tissue injury. Musculoskeletal: Tender to palpation to left foot globally and diffusely. Medications and Allergies Active Medications: Active Medications Acetaminophen (Tylenol) 650 mg PO Q6HR PRN PRN Reason: PAIN SCALE 1 TO 2 Last Admin: 04/07/18 17:40 Dose: 650 mg Hydrocodone Bitart/Acetaminophen ([place] 5/325) 1 tab PO Q4H PRN PRN Reason: PAIN SCALE 3 TO 5 Hydrocodone Bitart/Acetaminophen ([place] 7.5/325) 1 tab PO Q4H PRN PRN Reason: PAIN SCALE 6 TO 10 Last Admin: 04/08/18 02:44 Dose: 1 tab Al Hydroxide/Mg Hydroxide (Milk Of Magnesia Liq) 30 ml PO Q12H PRN PRN Reason: Mild Constipation Albuterol (Duoneb Neb (Prn)) 1 ampul NEB Q4HR NEB PRN PRN Reason: SHORTNESS OF BREATH/WHEEZING Aspirin (Aspirin Chew) 81 mg PO DAILY [facility] Last Admin: 04/08/18 08:11 Dose: Not Given Atorvastatin Calcium (Lipitor) 40 mg PO HS [facility] Last Admin: 04/07/18 20:50 Dose: 40 mg Bisacodyl (Dulcolax Supp) 10 mg RECTAL DAILY PRN PRN Reason: SEVERE CONSITIPATION Carvedilol (Coreg) 3.125 mg PO BID [facility] Last Admin: 04/08/18 08:10 Dose: 3.125 mg Chlorhexidine Gluconate (Chlorhexidine 2% Cloth) 3 pack TOPICAL METAL TUBE CUTTER [facility] Stop: 04/11/18 00:30 Gabapentin (Neurontin) 800 mg PO QID [facility] Last Admin: 04/08/18 08:10 Dose: 800 mg Heparin Sodium (Porcine) (Heparin Inj) 5,000 units SQ Q12H [facility] Last Admin: 04/08/18 08:12 Dose: Not Given Sodium Chloride (Ns Inj) 1,000 mls @ 100 mls/hr IV.CONT .Q10H [facility] Last Admin: 04/07/18 20:56 Dose: 100 mls/hr Lactated Ringer's (Lr 1000 Ml Inj) 1,000 mls @ 30 mls/hr IV.SIG .Q24H [facility] Stop: 04/11/18 00:30 Sodium Chloride (Ns Inj) 500 mls @ 30 mls/hr IV.SIG .Q10H [facility] Stop: 04/11/18 00:30 Lactulose (Lactulose Liq) 30 ml PO DAILY PRN PRN Reason: SEVERE CONSITIPATION Levofloxacin (Levaquin) 750 mg PO DAILY [facility] Last Admin: 04/08/18 08:10 Dose: 750 mg Naloxone HCl (Narcan Inj) 0.4 mg IV.PUSH UNSCH PRN PRN Reason: SEE LABEL COMMENTS Nicotine (Habitrol 14 Mg Patch.24 Hr) 1 patch T-DERMAL DAILY [facility] Last Admin: 04/07/18 10:58 Dose: 1 patch Nystatin (Mycostatin Powder) 1 applicatio TOPICAL QID [facility] Last Admin: 04/08/18 08:13 Dose: Not Given Pantoprazole Sodium (Protonix) 20 mg PO DAILY [facility] Last Admin: 04/08/18 08:09 Dose: 20 mg Patch Removal (Remove Old Patch) 1 each T-DERMAL Q24H [facility] Last Admin: 04/07/18 19:38 Dose: Not Given Povidone Iodine (Betadine 5% Antisepsis Kit) 1 applicatio EACH NARE METAL TUBE CUTTER [facility] Stop: 04/11/18 00:30 Senna/Docusate Sodium (Felicia-Colace) 1 tab PO BID [facility] Last Admin: 04/08/18 08:09 Dose: Not Given Sennosides (Senokot) 8.6 mg PO BID [facility] Last Admin: 04/08/18 08:08 Dose: Not Given Sennosides (Senokot) 17.2 mg PO Q12H PRN PRN Reason: Moderate Constipation Temazepam (Restoril) 15 mg PO HS PRN PRN Reason: INSOMNIA Allergies Allergy/AdvReac Type Severity Reaction Status Date / Time No Known Allergies Allergy Verified 04/06/18 17:04 Home Medications Medication Instructions Recorded Confirmed Type Lactobacillus acidoph-L.bulgar 1 tab PO BID 04/01/18 04/06/18 History [Lactinex] gabapentin 800 mg PO QID 04/01/18 04/06/18 History hydrocodone-acetaminophen 1 tab PO DAILY 04/01/18 04/06/18 History nicotine 1 patch TRANSDERMAL DAILY 04/01/18 04/06/18 History omeprazole 20 mg PO DAILY 04/01/18 04/06/18 History sennosides 8.6 mg PO BID 04/01/18 04/06/18 History Results - Labs CBC & Chem 7: 04/07/18 07:22 04/07/18 07:22 - Imaging Impressions Foot X-Ray 04/07/18 18:20 CONCLUSION: 1. Incompletely healed comminuted fracture involving the left first distal phalanx. 2. No acute fracture or dislocation. 3. Diffuse osteoporosis. 4. Tiny plantar calcaneal spur. Assessment and Plan - Plan 68-year-old male with left foot forefoot gangrene, left foot heel ulcer Patient examined evaluated with all questions answered Left lower extremity marked Consent signed Patient states he like to proceed with surgical intervention he would like one definitive surgery rather than multiple digital amputations States he does not walk and only transfers on his left lower extremity He agrees with surgical intervention to left foot transmetatarsal amputation He has remained n.p.o. after midnight Discussed with vascular surgery and patient is optimized from a vascular standpoint for transmetatarsal amputation
[2018-04-08] MEDS ORDERED: ceFAZolin 2 GM Premix Inj 2 GM/50 ML PIGGYBACK IV.SIG ONE (10:40)
[2018-04-08] MEDS ORDERED: Bupivacaine PF 0.25% Inj 30 ML Vial ONE (10:40)
[2018-04-08] MEDS ORDERED: Ketorolac Inj 30 MG/ML (IVP) Vial IV.PUSH ONE (11:49)
[2018-04-08] MEDS ORDERED: Phenylephrine/NS 1000 MCG/10ML Syringe IV.PUSH ONE (11:49)
[2018-04-08] MEDS ORDERED: Lidocaine PF 1% Inj 5 ML Syringe INFILTRATN ONE (11:49)
[2018-04-08] MEDS ORDERED: Misc Info for Pharmacy OTHER STA (12:18)
[2018-04-08] MEDS ORDERED: fentaNYL Citrate Inj 100 MCG/2 ML Ampul ONE (12:22)
--- NOTE | 2018-04-08 12:25 | P.PCN ---
Date of procedure: 04/08/18 Pre-op diagnosis: left forefoot gangrene Post-op diagnosis: same Procedure: Left transmetatarsal amputation Anesthesia: PEDROA Surgeon: Arelis Awad Estimated blood loss (mL): 20 Pathology: other (Soft tissue left foot for micro; Left forefoot for pathology) Condition: stable (Tolerated procedure and anesthesia well with NVS intact to left amputation site) Disposition: PACU
[2018-04-08] MEDS ORDERED: *morphine SULFATE 4 MG/ML PERIprocedure ONLY ONE (12:43)
--- NOTE | 2018-04-08 13:17 | MR ---
cc: Arelis Awad DPM DATE: 04/08/2018 DATE OF OPERATION: 04/08/2018 SURGEON: Arelis Awad DPM PREOPERATIVE DIAGNOSIS: Left foot gangrene noted to the fourth, third and first digit of left foot. POSTOPERATIVE DIAGNOSIS: Left foot gangrene noted to the fourth, third and first digit of left foot. OPERATION PERFORMED: Left transmetatarsal amputation. ANESTHESIA: General. ESTIMATED BLOOD LOSS: 20 mL. HEMOSTASIS: None. MATERIALS: 2-0 and 3-0 Prolene. INJECTABLES: 0.5% Marcaine plain, 20 mL infiltrated about left foot. COMPLICATIONS: None. INDICATIONS FOR PROCEDURE: The patient is a 68-year-old male who has had progressive gangrene of his left first, third, and fourth digits. The patient has been in the hospital over the past month and has refused amputations. He presented on this admission with worsening gangrene and ischemic pain. The patient states he wants one operation, he does not want to have multiple digital amputations and is requesting a transmetatarsal amputation at this time. The patient understands all risks and benefits of the procedure, alternatives associated with the procedure and he would like to proceed with transmetatarsal amputation. Transmetatarsal amputation recommended due to degree of gangrene to forefoot. DESCRIPTION OF PROCEDURE: The patient was brought to the operating room, and placed on the operating room table in the supine position. After adequate induction of anesthesia, left foot was prepped and draped in sterile fashion. There was noted to be gangrene noted to the hallux, third and fourth digits with complete ischemia of the fourth digit. At this time, local infiltrate of 0.5% Marcaine plain, 20 mL was infiltrated about the left foot. A fish mouth incision was then made around the left forefoot. This incision was carried down through the soft tissue down to the metatarsal bones with care to retract all vital neurovascular structures. Incision was continued to the metatarsophalangeal joints at which time the left forefoot was disarticulated and passed off the field for pathology. A 2-0 silk was utilized with hemostats to retract dorsal flap. Laguerre elevator was utilized to remove periosteum from the first through fifth metatarsal heads and distal metatarsal shafts. Oscillating saw was utilized to resect first through fifth metatarsal shafts. Metatarsals 1 through 5 were passed off the field. All nonviable necrotic tissue was debrided from amputation site. Tendons were transected until retraction to avoid any sort of tendon sheath infections. Plantar plate was removed to avoid any infection. Site was copiously irrigated with normal saline. Vancomycin powder was applied to left transmetatarsal amputation site. Plantar flap was then brought into approximation with dorsal incision utilizing 2-0 and 3-0 nylon. Care was taken not to place the flap under tension. AUSTYN wound VAC was then placed Left foot transmetatarsal amputation sites. He was noted to be good suction. The patient has a superficial heel ulceration with necrotic base. This was dressed with Adaptic and 4 x 4s. The whole foot was dressed with cast padding and Sawyer. The patient was placed in heel offloading device. He tolerated the procedure and anesthesia well. He was transferred from the OR to PACU with vital signs stable and neurovascular status intact to left transmetatarsal amputation site and plantar flap. He will remain in-house and we will reevaluate postop day 1. Anticipate discharge from podiatry standpoint in 2-3 days. The patient is to remain nonweightbearing to left lower extremity. NIKITA Cuevas , 12:34 PM , 01:16 PM AGATHA
--- NOTE | 2018-04-08 13:20 | XR ---
EXAM DATE: 04/08/2018 1:16 PM EDT AGE/SEX: 68 years / Male INDICATIONS: Post op toe amputations. CLINICAL DATA: This is the patient's subsequent encounter. Patient reports that signs and symptoms h ave been present for 1 day and indicates a pain score of 8/10. MEDICAL/SURGICAL HISTORY: None. . Pins and screws in left ankle. COMPARISON: [facility] – [place], [place] COMPLETE LEFT 3V, 04/07/2018. . FINDINGS: Views left foot demonstrates amputation at the distal metatarsals. Postsurgical changes with drain in place. Orthopedic hardware distal leg. Small plantar calcaneal spur. Degenerative changes and vascul ar calcifications CONCLUSION: Postsurgical changes with amputation at the distal metatarsal levels. Electronically signed by: Rory Carrillo MD 04/08/2018 1:19 PM EDT
--- NOTE | 2018-04-08 22:01 | CT ---
EXAM DATE: 04/08/2018 9:56 PM EDT AGE/SEX: 68 years / Male INDICATIONS: Right sided facial droop; weakness. CLINICAL DATA: This is the patient's initial encounter. Patient reports that signs and symptoms have been present for 1 day and indicates a pain score of Nonresponsive. MEDICAL/SURGICAL HISTORY: . Peripheral vascular disease . Recent toe amputations RADIATION DOSE: 56.35 CTDI (mGy) [place] [facility] [place]. . Report was called by [ ] TECHNIQUE: CT of the head without contrast. Using automated exposure control and adjustment of the mA and/or kV according to patient size, radiation dose was kept as low as reasonably achievable to ob tain optimal diagnostic quality images. DICOM format image data is available electronically for revi ew and comparison. FINDINGS: Cerebrum: The ventricles are normal for age. No evidence of midline shift, mass lesion, hemorrhage or acute infarction. No extraaxial fluid collections are seen. Posterior Fossa: The cerebellum and brainstem are intact. The 4th ventricle is midline. The cerebe llopontine angle is unremarkable. Extracranial: The visualized portion of the orbits is intact. Skull: The calvaria is intact. No evidence of skull fracture. CONCLUSION: 1. No acute intracranial abnormalities. Partial opacification of the mastoid air cells bilaterally. Electronically signed by: Pradeep Jiménez MD 04/08/2018 10:00 PM EDT
--- NOTE | 2018-04-08 22:21 | CT ---
EXAM DATE: 04/08/2018 10:11 PM EDT AGE/SEX: 68 years / Male INDICATIONS: Right sided facial droop; weakness. CLINICAL DATA: This is the patient's initial encounter. Patient reports that signs and symptoms have been present for 1 day and indicates a pain score of Nonresponsive. MEDICAL/SURGICAL HISTORY: . Peripheral vascular disease . Recent toe amputations RADIATION DOSE: 10.43 CTDI (mGy) ; Combined studies COMPAR[place]: [facility] [place]08/2018. . TECHNIQUE: Volumetric scanning was performed using a multi-row detector CT scanner during bolus infu dustin of 99 ml Visipaque 320 (iodixanol) nonionic water-soluble contrast as a cumulative dose for mul tiple exams. The data was post processed with a variety of visualization algorithms including full volume maximum intensity projection, multi-planar sliding thin slab reformation, curved planar reform ation, and surface rendering techniques. Using automated exposure control and adjustment of the mA a nd/or kV according to patient size, radiation dose was kept as low as reasonably achievable to obtain optimal diagnostic quality images. DICOM format image data is available electronically for review a nd comparison. FINDINGS: There is excellent visualization of the major intracranial arteries out to the second-order branch ve ssels. There is no evidence for aneurysm, vessel truncation or stenosis, and no evidence for vascula r malformation. CONCLUSION: 1. Negative CTA brain. Electronically signed by: Pradeep Jiménez MD 04/08/2018 10:20 PM EDT
[2018-04-08 22:28] LABS: Hematocrit 26.7 % (39.0-51.0); Hemoglobin 8.8 gm/dL (13.0-17.0); Mean Corpuscular HGB Conc 33.1 % (32.0-36.0); Mean Corpuscular Hemoglobin 30.8 pg (27.0-34.0); Mean Platelet Volume 7.2 fL (7.0-11.0); Platelet Count 378 th/mm3 (150-450); Red Blood Count 2.87 mil/mm3 (4.50-5.90); Red Cell Distribution Width 17.4 % (11.6-17.2); White Blood Count 6.7 th/mm3 (4.0-11.0)
[2018-04-08 22:46] LABS: Activated Partial Thrombo Time 25.4 sec (24.3-30.1); INR 1.1 Ratio; Prothrombin Time 11.6 sec (9.8-11.6)
--- NOTE | 2018-04-08 23:00 | CT ---
EXAM DATE: 04/08/2018 10:33 PM EDT AGE/SEX: 68 years / Male INDICATIONS: Right sided facial droop; weakness. CLINICAL DATA: This is the patient's initial encounter. Patient reports that signs and symptoms have been present for 1 day and indicates a pain score of Nonresponsive. MEDICAL/SURGICAL HISTORY: . Peripheral vascular disease . Recent toe amputations RADIATION DOSE: 10.43 CTDI (mGy) ; Combined studies COMPARISON: [facility], CTA HEAD W CONTRAST W 3D, 04/08/2018. . TECHNIQUE: Volumetric scanning was performed using a multirow detector CT scanner during bolus infus ion of 99 ml Visipaque 320 (iodixanol) nonionic water-soluble contrast as a cumulative dose for mult iple exams. The data was postprocessed with a variety of visualization algorithms including full-vo lume maximum intensity projection, multiplanar sliding thin-slab reformation, curved-planar reformati on, and surface-rendering techniques. Using automated exposure control and adjustment of the mA and/ or kV according to patient size, radiation dose was kept as low as reasonably achievable to obtain op timal diagnostic quality images. DICOM format image data is available electronically for review and comparison. Elevated flow velocities and ICA/CCA ratios have been found to correlate with increased degrees of ve ssel stenosis, calculated as percentage of diameter relative to a normal segment of distal ICA/CCA. FINDINGS: Great vessel origins are patent. Atherosclerotic plaque around the carotid bifurcation without stenos is in the common carotid or internal carotid arteries. Left vertebral artery is dominant and patent within the neck. No flow is seen in the right vertebral artery within the neck are limited as a. Be some reconstitution just before the basilar artery which is patent. CONCLUSION: 1. No carotid stenosis. Atherosclerotic plaque around the carotid bifurcations. Right vertebral artery not patent within the neck but may reconstitute distally. The left vertebral a rtery and basilar artery are patent. Findings called to Dr. Pena. Electronically signed by: Pradeep Jiménez MD 04/08/2018 10:59 PM EDT
[2018-04-08 23:02] LABS: Anion Gap 10 meq/L (5-15); Blood Urea Nitrogen 7 mg/dL (7-18); Calcium 7.1 mg/dL (8.5-10.1); Carbon Dioxide 23.7 meq/L (21.0-32.0); Chloride 99 meq/L (98-107); Glomerular Filtration Rate Greater Than 89 mL/min (>89); Glucose,Random 166 mg/dL (74-106); Potassium 4.2 meq/L (3.5-5.1); Sodium 133 meq/L (136-145)
--- NOTE | 2018-04-08 23:04 | ECG ---
Date Performed: 04/08/2018 Time Performed: 22:22:11 PTAGE: 68 years EKG: Sinus rhythm NONSPECIFIC ANTEROLATERAL ST ABNORMALITY PROLONGED QT INTERVAL ABNORMAL ECG PREVIOUS TRACING : 03/31/2018 14.40 Compared to previous tracing, nonspecific ST abnormality is now present. DOCTOR: Kb Urban Interpretating Date/Time 04/08/2018 23:02:48
[2018-04-08 23:06] LABS: Creatine Kinase 91 U/L (39-308)
[2018-04-08 23:07] LABS: Troponin I 1.25 ng/mL (0.02-0.05)
[2018-04-09] MEDS: Morphine Inj 4 MG/ML Vial IV.PUSH PRN ×5 (00:42→22:12)
[2018-04-09] MEDS: Sod Chloride 0.9% Inj 1,000 ML IV.CONT SCH (06:37)
--- NOTE | 2018-04-09 08:54 | P.PNIM ---
Subjective Interval history: Randall called on the patient overnight for stroke alert. Patient seen this morning in the ICU. He appears to have a facial drop. His speech at times is slurred but also has periods of complete clarity. Physical Exam Vital signs: Vital Signs 04/08/18 12:15 04/08/18 12:30 04/08/18 12:45 Temperature 97.6 F Pulse Rate 88 90 Respiratory Rate 24 16 16 Blood Pressure 166/96 H 149/69 H 152/82 H Pulse Oximetry 95 92 L 92 L 04/08/18 13:00 04/08/18 13:15 04/08/18 13:58 Temperature 97.6 F 98.1 F Pulse Rate 91 H 91 H 89 Respiratory Rate 16 17 15 Blood Pressure 157/85 H 156/79 H 169/81 H Pulse Oximetry 93 L 94 L 85 L 04/08/18 16:00 04/08/18 20:00 04/08/18 22:27 Temperature 98.2 F Pulse Rate 116 H 104 H 87 Respiratory Rate 18 Blood Pressure 74/50 L 90/54 L Pulse Oximetry 92 L 04/08/18 22:30 04/08/18 22:45 04/08/18 23:00 Temperature Pulse Rate 86 86 80 Respiratory Rate Blood Pressure 125/75 122/75 128/75 Pulse Oximetry 96 04/08/18 23:15 04/08/18 23:31 04/08/18 23:45 Temperature Pulse Rate 84 90 85 Respiratory Rate Blood Pressure 126/73 143/82 H 140/76 Pulse Oximetry 92 L 94 L 92 L 04/09/18 00:00 04/09/18 00:16 04/09/18 00:30 Temperature Pulse Rate 84 84 89 Respiratory Rate Blood Pressure 142/81 H 137/78 135/82 Pulse Oximetry 94 L 92 L 86 L 04/09/18 00:45 04/09/18 01:00 04/09/18 01:15 Temperature Pulse Rate 90 90 85 Respiratory Rate Blood Pressure 140/87 149/79 H 147/80 H Pulse Oximetry 93 L 92 L 92 L 04/09/18 01:30 04/09/18 01:45 04/09/18 02:00 Temperature Pulse Rate 84 85 84 Respiratory Rate Blood Pressure 148/80 H 119/59 L Pulse Oximetry 91 L 82 L 91 L 04/09/18 02:01 04/09/18 02:15 04/09/18 02:30 Temperature Pulse Rate 86 84 85 Respiratory Rate Blood Pressure 133/71 134/71 130/68 Pulse Oximetry 93 L 91 L 90 L 04/09/18 02:45 04/09/18 03:00 04/09/18 03:16 Temperature Pulse Rate 86 87 90 Respiratory Rate Blood Pressure 133/78 133/82 168/86 H Pulse Oximetry 90 L 88 L 89 L 04/09/18 03:31 04/09/18 03:45 04/09/18 04:00 Temperature Pulse Rate 99 H 80 85 Respiratory Rate Blood Pressure 115/63 122/70 138/83 Pulse Oximetry 89 L 91 L 04/09/18 04:15 04/09/18 04:30 04/09/18 04:46 Temperature Pulse Rate 83 86 92 H Respiratory Rate Blood Pressure 137/78 134/69 152/97 H Pulse Oximetry 94 L 89 L 86 L 04/09/18 05:00 04/09/18 05:15 04/09/18 08:00 Temperature 98 F Pulse Rate 84 81 100 H Respiratory Rate 18 Blood Pressure 138/92 H 151/72 H 150/72 H Pulse Oximetry 89 L 93 L 96 Intake & Output 04/08/18 04/09/18 04/09/18 18:59 06:59 18:59 Intake Total 850 / 850 0 / 0 Output Total 470 / 470 600 / 600 Balance 380 / 380 -600 / -600 Intake: Oral 0 / 0 Anesthesia Amount 850 / 850 Output: Urine 450 / 450 600 / 600 Stool 0 / 0 Estimated Blood Loss 20 / 20 Other: # Voids 2 Narrative: GENERAL: This is a well-nourished, well-developed patient, in no apparent distress. CARDIOVASCULAR: Normal rate and regular rhythm without murmurs, gallops, or rubs. RESPIRATORY: Good respiratory efforts. Breath sounds equal and clear to auscultation bilaterally. GASTROINTESTINAL: Abdomen soft, non-tender, non-distended. Normal active bowel sounds MUSCULOSKELETAL: Status post left partial foot amputation. Foot is wrapped and dressing appear intact. NEURO: He is alert and oriented. Slurred speech noted occasionally. Left facial droop. PSYCH: Appropriate mood and affect. Results - Labs CBC & Chem 7: 04/08/18 22:08 04/08/18 22:08 Laboratory Results - last 24 hr 04/08/18 04/08/18 04/08/18 21:36 21:46 22:08 WBC 6.7 RBC 2.87 L Hgb 8.8 L POC Hgb (Calc) Hct 26.7 L POC Hct MCV 93.0 MCH 30.8 MCHC 33.1 RDW 17.4 H Plt Count 378 MPV 7.2 PT 11.6 INR 1.1 APTT 25.4 Fibrinogen 361 POC Sodium Sodium POC Potassium Potassium POC Chloride Chloride Carbon Dioxide Anion Gap POC BUN BUN Creatinine POC Creatinine Estimated GFR POC Glucose 189 H Random Glucose Calcium Prot Corrected Calcium Total Creatine Kinase Troponin I Total Protein Nasal Screen MRSA (PCR) Blood Type Antibody Screen 04/08/18 04/08/18 04/08/18 22:08 22:08 23:00 WBC RBC Hgb POC Hgb (Calc) 8.5 L Hct POC Hct 25.0 L MCV MCH MCHC RDW Plt Count MPV PT INR APTT Fibrinogen POC Sodium 129 L Sodium 133 L POC Potassium 4.2 Potassium 4.2 POC Chloride 94 L Chloride 99 Carbon Dioxide 23.7 Anion Gap 10 POC BUN 6 BUN 7 Creatinine 0.81 POC Creatinine 0.6 Estimated GFR Greater than 89 POC Glucose 160 H Random Glucose 166 H Calcium 7.1 L* D Prot Corrected Calcium 8.2 L Total Creatine Kinase 91 Troponin I 1.25 H* Total Protein 5.0 L Nasal Screen MRSA (PCR) Not detected Blood Type A Positive Antibody Screen Negative - Imaging Impressions Foot X-Ray 04/08/18 00:00 CONCLUSION: Postsurgical changes with amputation at the distal metatarsal levels. Head CT 04/08/18 21:43 CONCLUSION: 1. No acute intracranial abnormalities. Partial opacification of the mastoid air cells bilaterally. Head CTA 04/08/18 21:51 CONCLUSION: 1. Negative CTA brain. Neck CTA 04/08/18 21:51 CONCLUSION: 1. No carotid stenosis. Atherosclerotic plaque around the carotid bifurcations. Right vertebral artery not patent within the neck but may reconstitute distally. The left vertebral artery and basilar artery are patent. Findings called to Dr. Pena. Assessment and Plan - Assessment (1) CVA (cerebral vascular accident) Code(s): I63.9 - Cerebral infarction, unspecified Status: Suspected Plan: Patient is status post partial left foot amputation. Stroke alert called overnight. His symptoms seems to be waxing and waning. Increase aspirin to 325 mg daily. Speech therapy for swallow eval Awaiting further input from neurology Given his symptoms are not completely resolved, will obtain brain MRI. Further plans per neurology. (2) Gangrene of left foot Code(s): I96 - Gangrene, not elsewhere classified Status: Acute Plan: Patient is status post revascularization by Dr. Duong Partial amputation recommended. Patient previously refused but agreed for amputation this admission. Appreciate podiatry following. Status post partial foot amputation. Continue aspirin and Lipitor (3) Peripheral vascular disease Code(s): I73.9 - Peripheral vascular disease, unspecified Status: Acute Plan: Status post femoral popliteal bypass. See above. Lifestyle modification discussed. Continue aspirin and Lipitor. pain control. (4) COPD (chronic obstructive pulmonary disease) Code(s): J44.9 - Chronic obstructive pulmonary disease, unspecified Status: Chronic Plan: Duo nebs and supplemental oxygen as needed. (5) Cellulitis Code(s): L03.90 - Cellulitis, unspecified Status: Acute Plan: We will continue Levaquin for now. Left groin area appeared to have a fungal rash. Nystatin powder.
[2018-04-09] MEDS: levoFLOXacin 750 MG Tablet PO SCH (08:56)
[2018-04-09] MEDS: Senna/Docusate Sodium 8.6/50 MG Tablet PO SCH ×2 (08:56→20:06)
[2018-04-09] MEDS: Pantoprazole Sodium 20 MG DR Tablet PO SCH (08:56)
[2018-04-09] MEDS: Gabapentin 400 MG Capsule PO SCH ×3 (08:56→20:06)
--- NOTE | 2018-04-09 10:24 | MB ---
cc: Jb Pena MD, PhD DATE: 04/09/2018 REASON FOR CONSULTATION: Stroke alert. HISTORY OF PRESENT ILLNESS: Mr. Wang is a 68-year-old man who underwent surgery yesterday for a left transmetatarsal amputation for gangrene of the left forefoot. He was stable and then last night, he developed acute onset of slurring of his speech, as well as what is reported as right-sided weakness. A stroke alert was called. He was evaluated emergently via the stroke alert protocol with a CT of the brain, which was unremarkable with no acute change present. Because of the patient's recent surgery, he was not a candidate for IV TPA. Further evaluation was pursued with a CT angiogram in search of large vessel occlusion. The CTA of the head revealed no large vessel occlusion, was basically normal. In addition, he had a CT angiogram of the neck performed, which revealed right vertebral artery was not patent and may reconstitute distally. The carotids were normal with no significant stenosis, although there was some mild plaquing. I discussed these findings last night with Dr. Jiménez of radiology. I felt, based on the patient's symptoms that the vertebral occlusion was not significant with regard to the patient's symptoms. The patient relates that he has improved. He does not relate any weakness at the time, but states his speech is still dysarthric. PAST MEDICAL HISTORY: He has a history of COPD, peripheral vascular disease. He has a history of femoral popliteal bypass. He had persistent gangrene of the left foot requiring the partial foot amputation. History of myocardial infarction. He has a history of paraplegia in the lower extremities due to trauma in the 1970s, wheelchair bound because of this. CURRENT MEDICATIONS: 1. Tylenol p.r.n. 2. Hydrocodone p.r.n. 3. Albuterol. 4. Aspirin 325 mg daily, which was just started. 5. Lipitor 40 mg daily. 6. Dulcolax suppository. 7. Carvedilol 3.125 mg b.i.d. 8. Gabapentin 800 mg q.i.d. 9. He is on subcutaneous heparin 5000 units b.i.d. 10. Levofloxacin 750 mg daily. 11. Morphine sulfate. 12. Narcan. 13. Habitrol. 14. Protonix 20 mg daily. 15. Senna. 16. Temazepam as needed for sleep. The patient states he was previously on warfarin, which has been on hold. NEUROLOGIC EXAMINATION: VITAL SIGNS: Blood pressure is 150/72, pulse is 100 and regular, respirations 18, temperature 98 degrees. Higher cortical function: He is alert. Speech is dysarthric. 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 Other cranial nerves are completely normal. Motor exam: He has 5/5 strength in both upper extremities. He is weak in both lower extremities at about 4/5, which is his baseline. Reflexes are symmetric. IMAGING STUDIES: As noted above. LABORATORY DATA: White count 6700, hemoglobin 8.8, hematocrit 26.7%, platelet count 378,000. PT 11.6, INR 1.1, APTT 25.4. Sodium is 129, potassium 4.2, chloride 94, CO2 is 23.7. The BUN is 7, creatinine 0.81, glucose is 160, AST 19, ALT 19. IMPRESSION: Acute stroke, mainly with dysarthria at the present time. The patient, as noted above, is not a candidate for TPA because of his recent surgery, there was no evidence of any large vessel occlusion that would be retrievable with intervention. RECOMMENDATION: Continue aspirin 325 mg daily. We will obtain an MRI of the brain, echocardiogram. Continue to monitor cardiac telemetry, rule out atrial fibrillation. Will also obtain a lipid panel. Jb Pena MD, PhD ANDREEA/WENDY , 09:52 AM , 10:22 AM
--- NOTE | 2018-04-09 10:42 | P.PNCA ---
- Note Subjective/Hospital Course: 04/07/2018 Patient known from previous admissions. Patient is paraparetic and uses likes to move himself stooped from bed to chair and such. Several weeks ago he underwent successful left femoral-popliteal bypass with endarterectomy and at that time was advised to have a forefoot/necrotic toes amputated by podiatry. Patient refused this and went home and then returned back with a non-STEMI and remain several days in the hospital. He then again left and decided to go home prior to having any other surgery Developed Pseudomonas urosepsis and states he is too weak to take care of himself at home so he is back now On physical exam left groin incision is well healed and dry although patient has not taken a shower or washed it at all Popliteal incision is clean and dry and well-healed Patient has excellent doppler signal in the popliteal artery and very weak posterior tibial pulse Foot is warm but the toes are gangrenous Discussed with patient at length and he agrees to forefoot amputation saw Dr. Awad podiatry has been consulted. Eventually patient will require right femoral-popliteal bypass but this is something we will discuss in the future. 04/09/2018 Left groin incision clean and dry and left popliteal incision is clean and dry Patient has excellent pulse and Doppler signal in the graft and popliteal artery. Apparently through the night developed some facial drooping underwent stroke workup which is negative It should be noted that patient had carotid workup prior to peripheral vascular surgery for I rarely do peripheral vascular surgery without knowing the carotid status or carotid surgery without having at least some idea about peripheral vascular status considering this is the same organ system. Therefore the carotid CTA and ultrasound are consistent with the once patient had several weeks ago. Nothing further to add to care Agree fully with Dr. Awad, as far as transmetatarsal amputation. Objective: Vital Signs - 24 hr 04/08/18 12:15 04/08/18 12:30 04/08/18 12:45 Temperature 97.6 F Pulse Rate 88 90 Respiratory Rate 24 16 16 Blood Pressure 166/96 H 149/69 H 152/82 H Pulse Oximetry 95 92 L 92 L 04/08/18 13:00 04/08/18 13:15 04/08/18 13:58 Temperature 97.6 F 98.1 F Pulse Rate 91 H 91 H 89 Respiratory Rate 16 17 15 Blood Pressure 157/85 H 156/79 H 169/81 H Pulse Oximetry 93 L 94 L 85 L 04/08/18 16:00 04/08/18 20:00 04/08/18 22:27 Temperature 98.2 F Pulse Rate 116 H 104 H 87 Respiratory Rate 18 Blood Pressure 74/50 L 90/54 L Pulse Oximetry 92 L 04/08/18 22:30 04/08/18 22:45 04/08/18 23:00 Temperature Pulse Rate 86 86 80 Respiratory Rate Blood Pressure 125/75 122/75 128/75 Pulse Oximetry 96 04/08/18 23:15 04/08/18 23:31 04/08/18 23:45 Temperature Pulse Rate 84 90 85 Respiratory Rate Blood Pressure 126/73 143/82 H 140/76 Pulse Oximetry 92 L 94 L 92 L 04/09/18 00:00 04/09/18 00:16 04/09/18 00:30 Temperature Pulse Rate 84 84 89 Respiratory Rate Blood Pressure 142/81 H 137/78 135/82 Pulse Oximetry 94 L 92 L 86 L 04/09/18 00:45 04/09/18 01:00 04/09/18 01:15 Temperature Pulse Rate 90 90 85 Respiratory Rate Blood Pressure 140/87 149/79 H 147/80 H Pulse Oximetry 93 L 92 L 92 L 04/09/18 01:30 04/09/18 01:45 04/09/18 02:00 Temperature Pulse Rate 84 85 84 Respiratory Rate Blood Pressure 148/80 H 119/59 L Pulse Oximetry 91 L 82 L 91 L 04/09/18 02:01 04/09/18 02:15 04/09/18 02:30 Temperature Pulse Rate 86 84 85 Respiratory Rate Blood Pressure 133/71 134/71 130/68 Pulse Oximetry 93 L 91 L 90 L 04/09/18 02:45 04/09/18 03:00 04/09/18 03:16 Temperature Pulse Rate 86 87 90 Respiratory Rate Blood Pressure 133/78 133/82 168/86 H Pulse Oximetry 90 L 88 L 89 L 04/09/18 03:31 04/09/18 03:45 04/09/18 04:00 Temperature Pulse Rate 99 H 80 85 Respiratory Rate Blood Pressure 115/63 122/70 138/83 Pulse Oximetry 89 L 91 L 04/09/18 04:15 04/09/18 04:30 04/09/18 04:46 Temperature Pulse Rate 83 86 92 H Respiratory Rate Blood Pressure 137/78 134/69 152/97 H Pulse Oximetry 94 L 89 L 86 L 04/09/18 05:00 04/09/18 05:15 04/09/18 08:00 Temperature 98 F Pulse Rate 84 81 100 H Respiratory Rate 18 Blood Pressure 138/92 H 151/72 H 150/72 H Pulse Oximetry 89 L 93 L 96 Labs: Laboratory Results - last 12 hr 04/08/18 04/08/18 04/08/18 21:46 22:08 22:08 POC Hgb (Calc) 8.5 L POC Hct 25.0 L PT 11.6 INR 1.1 APTT 25.4 Fibrinogen 361 POC Sodium 129 L Sodium 133 L POC Potassium 4.2 Potassium 4.2 POC Chloride 94 L Chloride 99 Carbon Dioxide 23.7 Anion Gap 10 POC BUN 6 BUN 7 Creatinine 0.81 POC Creatinine 0.6 Estimated GFR Greater than 89 POC Glucose 160 H Random Glucose 166 H Calcium 7.1 L* D Prot Corrected Calcium 8.2 L Total Creatine Kinase 91 Troponin I 1.25 H* Total Protein 5.0 L Nasal Screen MRSA (PCR) Blood Type A Positive Antibody Screen Negative 04/08/18 23:00 POC Hgb (Calc) POC Hct PT INR APTT Fibrinogen POC Sodium Sodium POC Potassium Potassium POC Chloride Chloride Carbon Dioxide Anion Gap POC BUN BUN Creatinine POC Creatinine Estimated GFR POC Glucose Random Glucose Calcium Prot Corrected Calcium Total Creatine Kinase Troponin I Total Protein Nasal Screen MRSA (PCR) Not detected Blood Type Antibody Screen Result Diagrams: 04/08/18 22:08 04/08/18 22:08
[2018-04-09] MEDS: Heparin - SQ 10,000 UNITS/ML Vial SQ SCH ×2 (12:23→22:11)
[2018-04-09] MEDS: Nystatin 100,000 UNITS/GM Powder 15 GM Bottle TOPICAL SCH (12:27)
[2018-04-09] MEDS: Sod Chloride 0.9% Inj 1,000 ML IV.SIG SCH ×2 (12:31→12:32)
[2018-04-09 14:02] LABS: Chol/HDL Ratio 3.12 Ratio; HDL Cholesterol 30.4 mg/dL (40.0-60.0)
--- NOTE | 2018-04-09 21:37 | P.PNPOD ---
Subjective Interval history: Patient seen bedside. His heel and on the bed with no offloading whatsoever. He was being worked up for stroke status post surgical intervention however this is negative. Patient was found to have a facial drooping and some speech slurring last night. Physical Exam Vital signs: Vital Signs 04/08/18 22:27 04/08/18 22:30 04/08/18 22:45 Temperature Pulse Rate 87 86 86 Respiratory Rate Blood Pressure 125/75 122/75 Pulse Oximetry 04/08/18 23:00 04/08/18 23:15 04/08/18 23:31 Temperature Pulse Rate 80 84 90 Respiratory Rate Blood Pressure 128/75 126/73 143/82 H Pulse Oximetry 96 92 L 94 L 04/08/18 23:45 04/09/18 00:00 04/09/18 00:16 Temperature Pulse Rate 85 84 84 Respiratory Rate Blood Pressure 140/76 142/81 H 137/78 Pulse Oximetry 92 L 94 L 92 L 04/09/18 00:30 04/09/18 00:45 04/09/18 01:00 Temperature Pulse Rate 89 90 90 Respiratory Rate Blood Pressure 135/82 140/87 149/79 H Pulse Oximetry 86 L 93 L 92 L 04/09/18 01:15 04/09/18 01:30 08 01:45 Temperature Pulse Rate 85 84 85 Respiratory Rate Blood Pressure 147/80 H 148/80 H 119/59 L Pulse Oximetry 92 L 91 L 82 L 04/09/18 02:00 04/09/18 02:01 04/09/18 02:15 Temperature Pulse Rate 84 86 84 Respiratory Rate Blood Pressure 133/71 134/71 Pulse Oximetry 91 L 93 L 91 L 04/09/18 02:30 04/09/18 02:45 04/09/18 03:00 Temperature Pulse Rate 85 86 87 Respiratory Rate Blood Pressure 130/68 133/78 133/82 Pulse Oximetry 90 L 90 L 88 L 04/09/18 03:16 04/09/18 03:31 04/09/18 03:45 Temperature Pulse Rate 90 99 H 80 Respiratory Rate Blood Pressure 168/86 H 115/63 122/70 Pulse Oximetry 89 L 89 L 04/09/18 04:00 04/09/18 04:15 04/09/18 04:30 Temperature Pulse Rate 85 83 86 Respiratory Rate Blood Pressure 138/83 137/78 134/69 Pulse Oximetry 91 L 94 L 89 L 04/09/18 04:46 04/09/18 05:00 04/09/18 05:15 Temperature Pulse Rate 92 H 84 81 Respiratory Rate Blood Pressure 152/97 H 138/92 H 151/72 H Pulse Oximetry 86 L 89 L 93 L 04/09/18 08:00 04/09/18 12:00 04/09/18 16:00 Temperature 98 F 98 F 98.6 F Pulse Rate 100 H 101 H 98 H Respiratory Rate 18 16 16 Blood Pressure 150/72 H 137/70 147/72 H Pulse Oximetry 96 96 96 Intake & Output 04/09/18 04/09/18 04/10/18 06:59 18:59 06:59 Intake Total 0 / 0 Output Total 600 / 600 Balance -600 / -600 Intake: Oral 0 / 0 Output: Urine 600 / 600 Stool 0 / 0 Other: # Voids 2 Narrative: Surgical dressing intact to left foot with Audrey wound VAC functioning adequately. No ascending cellulitis noted to left lower extremity. Medications and Allergies Active Medications: Active Medications Acetaminophen (Tylenol) 650 mg PO Q6HR PRN PRN Reason: PAIN SCALE 1 TO 2 Last Admin: 04/07/18 17:40 Dose: 650 mg Hydrocodone Bitart/Acetaminophen ([place] 5/325) 1 tab PO Q4H PRN PRN Reason: PAIN SCALE 3 TO 5 Hydrocodone Bitart/Acetaminophen ([place] 7.5/325) 1 tab PO Q4H PRN PRN Reason: PAIN SCALE 6 TO 10 Last Admin: 04/09/18 20:04 Dose: 1 tab Al Hydroxide/Mg Hydroxide (Milk Of Magnazul Liq) 30 ml PO Q12H PRN PRN Reason: Mild Constipation Albuterol (Duoneb Neb (Prn)) 1 ampul NEB Q4HR NEB PRN PRN Reason: SHORTNESS OF BREATH/WHEEZING Aspirin (Aspirin) 325 mg PO DAILY [facility] Atorvastatin Calcium (Lipitor) 40 mg PO HS [facility] Last Admin: 04/09/18 20:05 Dose: 40 mg Bisacodyl (Dulcolax Supp) 10 mg RECTAL DAILY PRN PRN Reason: SEVERE CONSITIPATION Carvedilol (Coreg) 3.125 mg PO BID [facility] Last Admin: 04/08/18 08:10 Dose: 3.125 mg Chlorhexidine Gluconate (Chlorhexidine 2% Cloth) 3 pack TOPICAL CARBONIZER [facility] Stop: 04/11/18 00:30 Gabapentin (Neurontin) 800 mg PO QID [facility] Last Admin: 04/09/18 20:06 Dose: 800 mg Heparin Sodium (Porcine) (Heparin Inj) 5,000 units SQ Q12H [facility] Last Admin: 04/09/18 12:23 Dose: 5,000 units Sodium Chloride (Ns Inj) 1,000 mls @ 100 mls/hr IV.CONT .Q10H [facility] Last Admin: 04/09/18 06:37 Dose: 100 mls/hr Lactated Ringer's (Lr 1000 Ml Inj) 1,000 mls @ 30 mls/hr IV.SIG .Q24H [facility] Stop: 04/11/18 00:30 Sodium Chloride (Ns Inj) 500 mls @ 30 mls/hr IV.SIG .Q10H [facility] Stop: 04/11/18 00:30 Sodium Chloride (Ns Inj) 1,000 mls @ 70 mls/hr IV.SIG .[id number] [facility] Last Admin: 04/09/18 12:32 Dose: Not Given Lactulose (Lactulose Liq) 30 ml PO DAILY PRN PRN Reason: SEVERE CONSITIPATION Levofloxacin (Levaquin) 750 mg PO DAILY [facility] Last Admin: 04/09/18 08:56 Dose: 750 mg Morphine Sulfate (Morphine Inj) 4 mg IV.PUSH Q4H PRN PRN Reason: pain 6-10 Last Admin: 04/09/18 12:24 Dose: 4 mg Naloxone HCl (Narcan Inj) 0.4 mg IV.PUSH UNSCH PRN PRN Reason: SEE LABEL COMMENTS Nicotine (Habitrol 14 Mg Patch.24 Hr) 1 patch T-DERMAL DAILY [facility] Last Admin: 04/09/18 12:26 Dose: 1 patch Nystatin (Mycostatin Powder) 1 applicatio TOPICAL QID [facility] Last Admin: 04/09/18 12:27 Dose: Not Given Pantoprazole Sodium (Protonix) 20 mg PO DAILY [facility] Last Admin: 04/09/18 08:56 Dose: 20 mg Patch Removal (Remove Old Patch) 1 each T-DERMAL Q24H [facility] Last Admin: 04/09/18 12:26 Dose: 1 each Povidone Iodine (Betadine 5% Antisepsis Kit) 1 applicatio EACH NARE CARBONIZER [facility] Stop: 04/11/18 00:30 Senna/Docusate Sodium (Felicia-Colace) 1 tab PO BID [facility] Last Admin: 04/09/18 20:06 Dose: 1 tab Sennosides (Senokot) 8.6 mg PO BID [facility] Last Admin: 04/09/18 20:06 Dose: 8.6 mg Sennosides (Senokot) 17.2 mg PO Q12H PRN PRN Reason: Moderate Constipation Temazepam (Restoril) 15 mg PO HS PRN PRN Reason: INSOMNIA Allergies Allergy/AdvReac Type Severity Reaction Status Date / Time No Known Allergies Allergy Verified 04/06/18 17:04 Home Medications Medication Instructions Recorded Confirmed Type Lactobacillus acidoph-L.bulgar 1 tab PO BID 04/01/18 04/06/18 History [Lactinex] gabapentin 800 mg PO QID 04/01/18 04/06/18 History hydrocodone-acetaminophen 1 tab PO DAILY 04/01/18 04/06/18 History nicotine 1 patch TRANSDERMAL DAILY 04/01/18 04/06/18 History omeprazole 20 mg PO DAILY 04/01/18 04/06/18 History sennosides 8.6 mg PO BID 04/01/18 04/06/18 History Results - Labs CBC & Chem 7: 04/08/18 22:08 04/08/18 22:08 Laboratory Results - last 24 hr 04/08/18 04/08/18 04/08/18 21:36 21:46 22:08 WBC 6.7 RBC 2.87 L Hgb 8.8 L POC Hgb (Calc) Hct 26.7 L POC Hct MCV 93.0 MCH 30.8 MCHC 33.1 RDW 17.4 H Plt Count 378 MPV 7.2 PT 11.6 INR 1.1 APTT 25.4 Fibrinogen 361 POC Sodium Sodium POC Potassium Potassium POC Chloride Chloride Carbon Dioxide Anion Gap POC BUN BUN Creatinine POC Creatinine Estimated GFR POC Glucose 189 H Random Glucose Calcium Prot Corrected Calcium Total Creatine Kinase Troponin I Total Protein Triglycerides Cholesterol LDL Cholesterol, Calc HDL Cholesterol Cholesterol/HDL Ratio Nasal Screen MRSA (PCR) Blood Type Antibody Screen 04/08/18 04/08/18 04/08/18 22:08 22:08 23:00 WBC RBC Hgb POC Hgb (Calc) 8.5 L Hct POC Hct 25.0 L MCV MCH MCHC RDW Plt Count MPV PT INR APTT Fibrinogen POC Sodium 129 L Sodium 133 L POC Potassium 4.2 Potassium 4.2 POC Chloride 94 L Chloride 99 Carbon Dioxide 23.7 Anion Gap 10 POC BUN 6 BUN 7 Creatinine 0.81 POC Creatinine 0.6 Estimated GFR Greater than 89 POC Glucose 160 H Random Glucose 166 H Calcium 7.1 L* D Prot Corrected Calcium 8.2 L Total Creatine Kinase 91 Troponin I 1.25 H* Total Protein 5.0 L Triglycerides Cholesterol LDL Cholesterol, Calc HDL Cholesterol Cholesterol/HDL Ratio Nasal Screen MRSA (PCR) Not detected Blood Type A Positive Antibody Screen Negative 04/09/18 13:05 WBC RBC Hgb POC Hgb (Calc) Hct POC Hct MCV MCH MCHC RDW Plt Count MPV PT INR APTT Fibrinogen POC Sodium Sodium POC Potassium Potassium POC Chloride Chloride Carbon Dioxide Anion Gap POC BUN BUN Creatinine POC Creatinine Estimated GFR POC Glucose Random Glucose Calcium Prot Corrected Calcium Total Creatine Kinase Troponin I Total Protein Triglycerides 81 Cholesterol 95 L LDL Cholesterol, Calc 48 HDL Cholesterol 30.4 L Cholesterol/HDL Ratio 3.12 Nasal Screen MRSA (PCR) Blood Type Antibody Screen Microbiology 04/08/18 11:24 Tissue - Foot Gram Stain - Final 04/08/18 11:24 Tissue - Foot Wound Culture - Preliminary No growth in 24 hours 04/08/18 11:24 Tissue - Foot Fungal Smear - Final No fungal elements seen - Imaging Impressions Head CT 04/08/18 21:43 CONCLUSION: 1. No acute intracranial abnormalities. Partial opacification of the mastoid air cells bilaterally. Head CTA 04/08/18 21:51 CONCLUSION: 1. Negative CTA brain. Neck CTA 04/08/18 21:51 CONCLUSION: 1. No carotid stenosis. Atherosclerotic plaque around the carotid bifurcations. Right vertebral artery not patent within the neck but may reconstitute distally. The left vertebral artery and basilar artery are patent. Findings called to Dr. Pena. Assessment and Plan - Plan 68-year-old male status post left transmetatarsal amputation Patient examined evaluated with all questions answered Stroke workup negative Patient understands he is to have heel offloaded at all times Dressing will be changed by physician prior to discharge Dressings to remain clean dry and intact Patient to follow up within 1 week of discharge with Dr[address] Awad
[2018-04-10] MEDS: Nystatin 100,000 UNITS/GM Powder 15 GM Bottle TOPICAL SCH ×5 (02:34→22:57)
[2018-04-10] MEDS: Sod Chloride 0.9% Inj 1,000 ML IV.SIG SCH ×2 (02:35→22:50)
[2018-04-10] MEDS: Morphine Inj 4 MG/ML Vial IV.PUSH PRN ×4 (04:39→19:38)
[2018-04-10 07:18] LABS: Anion Gap 8 meq/L (5-15); Blood Urea Nitrogen 4 mg/dL (7-18); Calcium 7.8 mg/dL (8.5-10.1); Carbon Dioxide 26.7 meq/L (21.0-32.0); Chloride 100 meq/L (98-107); Glomerular Filtration Rate Greater Than 89 mL/min (>89); Glucose,Random 122 mg/dL (74-106); Potassium 3.6 meq/L (3.5-5.1); Sodium 135 meq/L (136-145)
[2018-04-10 07:20] LABS: Hematocrit 28.4 % (39.0-51.0); Hemoglobin 9.5 gm/dL (13.0-17.0); Mean Corpuscular HGB Conc 33.4 % (32.0-36.0); Mean Corpuscular Volume 92.8 fL (80.0-100.0); Mean Platelet Volume 7.3 fL (7.0-11.0); Platelet Count 414 th/mm3 (150-450); Red Blood Count 3.07 mil/mm3 (4.50-5.90); Red Cell Distribution Width 17.1 % (11.6-17.2); White Blood Count 7.4 th/mm3 (4.0-11.0)
[2018-04-10] MEDS: levoFLOXacin 750 MG Tablet PO SCH (08:56)
[2018-04-10] MEDS: Aspirin 325 MG Tablet PO SCH (08:57)
[2018-04-10] MEDS: Senna/Docusate Sodium 8.6/50 MG Tablet PO SCH ×3 (08:57→22:59)
[2018-04-10] MEDS: Pantoprazole Sodium 20 MG DR Tablet PO SCH (08:57)
[2018-04-10] MEDS: Gabapentin 400 MG Capsule PO SCH ×5 (08:58→23:00)
--- NOTE | 2018-04-10 09:48 | P.PNIM ---
Subjective Interval history: 68-year-old male with a medical history significant for COPD, peripheral vascular disease, paraplegia who recently had femoral popliteal bypass with Dr. Chavarria. Patient had significant revascularization down to his ankle, however the left foot remain gangrenous due to [place] vessel disease. A partial foot amputation was recommended, however the patient refused any intervention. He returned to the hospital with complaint of worsening left leg pain. On my evaluation today, he indicated that he is willing to go through with surgery. Of note the patient was discharged 2 days ago after he was treated for Pseudomonas UTI and lower extremity cellulitis. The patient also had evidence of NSTEMI during the last hospitalization but he refused any invasive cardiac workup. He was treated medically. The patient was discharged on Levaquin and heart medications. However he did not start any of these medications. The patient denies any fevers or chills. He is shortness of breath is at baseline. No chest pain. 7-7 Follow-up visit COPD, PVD, paraplegia, left foot gangrene. Patient seen and examined today. States he had a horrible night secondary to pain. States that the pain medication is not helping him out, pain is located on the left foot, rated 10/10, aggravated by touching or movement, unrelieved by current pain management and patient is asking for IV pain medication. Patient is to go to surgery today for amputation. Discussed extensively that he is going to get some pain relief especially that he is going to the OR to get anesthetic. We will adjust his pain medication when he comes out of the operating room. Otherwise, Denies pain and discomfort. Denies SOB/ dyspnea. Denies chest pain , palpitations, headaches, dizziness. Denies fevers, chills, n/v/d. Denies hematuria, dysuria. 7-8 Randall called on the patient overnight for stroke alert. Patient seen this morning in the ICU. He appears to have a facial drop. His speech at times is slurred but also has periods of complete clarity. 7-9 SO FAR ALL CAT SCANS AND US OF NECK ARE reviewed--right neck with occlusion on scan CAN'T HAVE MRI DUE TO OLD SPINAL CORD STIMULATOR IN PLACE DW RN AND PT PT AND OT AND ST CONSULTS AWAIT OFFICIAL NEUROLOGY CONSULT LEFT FOOT IS DRESSED- HAS VACC IN PLACE TRANSFER OUT OF ICU Physical Exam Vital signs: Vital Signs 04/09/18 09:51 04/09/18 10:00 04/09/18 10:30 Temperature Pulse Rate 101 H 103 H 94 H Respiratory Rate Blood Pressure 121/79 154/76 H 134/72 Pulse Oximetry 75 L 74 L 81 L 04/09/18 11:00 04/09/18 11:30 04/09/18 12:00 Temperature 98 F Pulse Rate 89 101 H 92 H Respiratory Rate 16 Blood Pressure 145/71 H 148/74 H 137/70 Pulse Oximetry 88 L 81 L 98 04/09/18 12:01 04/09/18 12:31 04/09/18 13:00 Temperature Pulse Rate 92 H 97 H 98 H Respiratory Rate Blood Pressure 114/69 159/90 H 148/88 H Pulse Oximetry 84 L 86 L 88 L 04/09/18 13:31 04/09/18 14:00 04/09/18 14:31 Temperature Pulse Rate 100 H 99 H 101 H Respiratory Rate Blood Pressure 160/91 H 137/70 122/71 Pulse Oximetry 92 L 89 L 81 L 04/09/18 15:00 04/09/18 15:30 04/09/18 16:00 Temperature 98.6 F Pulse Rate 104 H 97 H 101 H Respiratory Rate 16 Blood Pressure 134/79 125/76 151/79 H Pulse Oximetry 91 L 92 L 90 L 04/09/18 16:31 04/09/18 17:00 04/09/18 17:44 Temperature Pulse Rate 101 H 96 H 102 H Respiratory Rate Blood Pressure 138/81 147/72 H 138/83 Pulse Oximetry 91 L 91 L 89 L 04/09/18 18:00 04/09/18 18:02 04/09/18 19:00 Temperature Pulse Rate 95 H 95 H 98 H Respiratory Rate Blood Pressure 128/72 135/65 Pulse Oximetry 89 L 91 L 91 L 04/09/18 20:00 04/09/18 20:40 04/09/18 21:00 Temperature 98.0 F Pulse Rate 92 H 93 H Respiratory Rate 8 L Blood Pressure 144/83 H 154/94 H Pulse Oximetry 91 L 89 L 04/09/18 22:00 04/09/18 22:15 04/09/18 23:00 Temperature Pulse Rate 100 H 99 H Respiratory Rate 15 Blood Pressure 157/88 H 159/84 H Pulse Oximetry 89 L 89 L 04/10/18 00:00 04/10/18 04:00 04/10/18 04:58 Temperature 98.4 F 98.2 F Pulse Rate 95 H 90 94 H Respiratory Rate 14 16 18 Blood Pressure 123/66 160/75 H Pulse Oximetry 92 L 95 93 L 04/10/18 08:07 Temperature Pulse Rate Respiratory Rate Blood Pressure Pulse Oximetry 95 Intake & Output 04/09/18 04/10/18 04/10/18 18:59 06:59 18:59 Intake Total 500 / 500 Output Total 400 / 400 Balance 100 / 100 Weight 90.3 kg Intake: Oral 500 / 500 Output: Urine 400 / 400 Narrative: GENERAL: Awake alert and oriented 3 talkative and cooperative SKIN: Warm and dry. Left foot is wrapped and dressed HEAD: Atraumatic. Normocephalic. EYES: Pupils equal and round. No scleral icterus. No injection or drainage. ENT: No nasal bleeding or discharge. Mucous membranes pink and moist. Left facial droop improved NECK: Trachea midline. No JVD. CARDIOVASCULAR: Regular rate and rhythm. RESPIRATORY: No accessory muscle use. Clear to auscultation. Breath sounds equal bilaterally. GASTROINTESTINAL: Abdomen soft, non-tender, nondistended. Hepatic and splenic margins not palpable. MUSCULOSKELETAL: Extremities without clubbing, cyanosis, or edema. No obvious deformities. Left foot is wrapped and dressed NEUROLOGICAL: Awake and alert. No obvious cranial nerve deficits. Motor grossly within normal limits. Five out of 5 muscle strength in the arms and legs. Normal speech. PSYCHIATRIC: Appropriate mood and affect; insight and judgment normal. Results - Labs CBC & Chem 7: 04/10/18 06:20 04/10/18 06:20 Laboratory Results - last 24 hr 04/09/18 04/10/18 04/10/18 13:05 06:20 06:20 WBC 7.4 RBC 3.07 L Hgb 9.5 L Hct 28.4 L MCV 92.8 MCH 31.0 MCHC 33.4 RDW 17.1 Plt Count 414 MPV 7.3 Sodium 135 L Potassium 3.6 Chloride 100 Carbon Dioxide 26.7 Anion Gap 8 BUN 4 L Creatinine 0.59 L Estimated GFR Greater than 89 Random Glucose 122 H Calcium 7.8 L Triglycerides 81 Cholesterol 95 L LDL Cholesterol, Calc 48 HDL Cholesterol 30.4 L Cholesterol/HDL Ratio 3.12 Microbiology 04/08/18 11:24 Tissue - Foot Gram Stain - Final 04/08/18 11:24 Tissue - Foot Wound Culture - Preliminary No growth in 24 hours 04/08/18 11:24 Tissue - Foot Fungal Smear - Final No fungal elements seen - Imaging ITS Impressions Foot X-Ray 04/08/18 00:00 CONCLUSION: Postsurgical changes with amputation at the distal metatarsal levels. Head CT 04/08/18 21:43 CONCLUSION: 1. No acute intracranial abnormalities. Partial opacification of the mastoid air cells bilaterally. Head CTA 04/08/18 21:51 CONCLUSION: 1. Negative CTA brain. Neck CTA 04/08/18 21:51 CONCLUSION: 1. No carotid stenosis. Atherosclerotic plaque around the carotid bifurcations. Right vertebral artery not patent within the neck but may reconstitute distally. The left vertebral artery and basilar artery are patent. Findings called to Dr. Pena. - Procedures 04/08/2018 SURGEON: Arelis Awad DPM PREOPERATIVE DIAGNOSIS: Left foot gangrene noted to the fourth, third and first digit of left foot. POSTOPERATIVE DIAGNOSIS: Left foot gangrene noted to the fourth, third and first digit of left foot. OPERATION PERFORMED: Left transmetatarsal amputation. Assessment and Plan - Assessment (1) CVA (cerebral vascular accident) Code(s): I63.9 - Cerebral infarction, unspecified Status: Suspected Plan: Patient is status post partial left foot amputation. Stroke alert called overnight. His symptoms seems to be waxing and waning. Increase aspirin to 325 mg daily. Speech therapy for swallow eval Awaiting further input from neurology Given his symptoms are not completely resolved, CAN'T HAVE MRI DUE TO SPINAL STIMULATOR IN PLACE (2) Gangrene of left foot Code(s): I96 - Gangrene, not elsewhere classified Status: Acute Plan: Patient is status post revascularization by Dr. Duong Partial amputation recommended. Patient previously refused but agreed for amputation this admission. Appreciate podiatry following. Status post partial foot amputation ON THE LEFT Continue aspirin and Lipitor (3) Peripheral vascular disease Code(s): I73.9 - Peripheral vascular disease, unspecified Status: Acute Plan: Status post femoral popliteal bypass. See above. Lifestyle modification discussed. Continue aspirin and Lipitor. pain control. (4) COPD (chronic obstructive pulmonary disease) Code(s): J44.9 - Chronic obstructive pulmonary disease, unspecified Status: Chronic Plan: Duo nebs and supplemental oxygen as needed. (5) Cellulitis Code(s): L03.90 - Cellulitis, unspecified Status: Acute Plan: We will continue Levaquin for now. Left groin area appeared to have a fungal rash. Nystatin powder. - Plan AWAIT NEUROLOGY CLEARANCE TRANSFER OUT OF ICU DW RN AND PT Code Status: FULL CODE Discussed Condition With: RN AND PT Discharge Planning: PENDING PODIATRY AND VASCULAR CLEARANCE HOPEFULLY NEXT 24-48 HOURS
--- NOTE | 2018-04-10 15:59 | ECHRPT ---
Indication: CVA/TIA CONCLUSIONS Limited echo, patient refused part way through the exam, so conclusions are based on limited imaging The left ventricular systolic function is normal with an estimated ejection fraction in the range of 55-60%. BP: / HR: Rhythm: Sinus MEASUREMENTS (Male / Female) Normal Values Technical Quality:Fair 2D ECHO LV Diastolic Diameter PLAX 3.8 cm 4.2 - 5.9 / 3.9 - 5.3 cm LV Systolic Diameter PLAX 2.8 cm IVS Diastolic Thickness 1.1 cm 0.6 - 1.0 / 0.6 - 0.9 cm LVPW Diastolic Thickness 1.1 cm 0.6 - 1.0 / 0.6 - 0.9 cm LV Relative Wall Thickness 0.6 LVOT Diameter 1.6 cm M-MODE Aortic Root Diameter MM 2.4 cm LA Systolic Diameter MM 3.7 cm LA Ao Ratio MM 1.5 AV Cusp Separation MM 1.5 cm FINDINGS LEFT VENTRICLE The left ventricular systolic function is normal with an estimated ejection fraction in the range of 55-60%. Normal left ventricular size. Wall thickness is normal. RIGHT VENTRICLE Grossly normal LEFT ATRIUM The left atrial size is upper limits of normal. RIGHT ATRIUM The right atrium is not well visualized. ATRIAL SEPTUM The interatrial septum not well visualized. AORTA The aortic root and proximal ascending aorta are not well visualized. MITRAL VALVE Grossly normal No mitral valve regurgitation. AORTIC VALVE The aortic valve is not well visualized. TRICUSPID VALVE The tricuspid valve is not well visualized. PULMONARY VALVE The pulmonary valve is not well visualized. Noé Garcia DO (Electronically Signed) Final Date:10 April 2018 15:58
--- NOTE | 2018-04-10 16:14 | P.PNNEU ---
Subjective Subjective Comments: No acute events reported He feels right sided strength is normal Speech still dysarthric especially if he is pressured Active Medications: Active Medications Generic Name Dose Route Start Last Admin Trade Name Freq PRN Reason Stop Dose Admin Acetaminophen 650 mg 04/07/18 00:57 04/07/18 17:40 Tylenol PO 650 mg Q6HR PRN Administration PAIN SCALE 1 TO 2 Hydrocodone Bitart/Acetaminophen 1 tab 04/07/18 00:57 [place] 5/325 PO Q4H PRN PAIN SCALE 3 TO 5 Hydrocodone Bitart/Acetaminophen 1 tab 04/07/18 00:57 04/09/18 20:04 [place] 7.5/325 PO 1 tab Q4H PRN Administration PAIN SCALE 6 TO 10 Al Hydroxide/Mg Hydroxide 30 ml 04/06/18 20:04 Milk Of Magnesia Liq PO Q12H PRN Mild Constipation Albuterol 1 ampul 04/07/18 13:56 04/10/18 04:57 Duoneb Neb (Prn) NEB 1 ampul Q4HR NEB PRN Administration SHORTNESS OF BREATH/WHEEZING Aspirin 325 mg 04/09/18 10:30 04/10/18 08:57 Aspirin PO 325 mg DAILY [facility] Administration Atorvastatin Calcium 40 mg 04/06/18 21:00 04/09/18 20:05 Lipitor PO 40 mg HS [facility] Administration Bisacodyl 10 mg 04/06/18 20:04 Dulcolax Supp RECTAL DAILY PRN SEVERE CONSITIPATION Carvedilol 3.125 mg 04/06/18 21:00 04/08/18 08:10 Coreg PO 3.125 mg BID [facility] Administration Chlorhexidine Gluconate 3 pack 04/08/18 00:30 Chlorhexidine 2% Cloth TOPICAL 04/11/18 00:30 LANGUAGE TUTOR [facility] Gabapentin 800 mg 04/06/18 21:00 04/10/18 14:29 Neurontin PO 800 mg QID [facility] Administration Heparin Sodium (Porcine) 5,000 units 04/09/18 11:00 04/09/18 22:11 Heparin Inj SQ 5,000 units Q12H [facility] Administration Sodium Chloride 1,000 mls @ 100 mls/hr 04/06/18 21:00 04/09/18 19:00 Ns Inj IV.CONT 0 mls/hr .Q10H [facility] Infusion Lactated Ringer's 1,000 mls @ 30 mls/hr 04/08/18 00:30 Lr 1000 Ml Inj IV.SIG 04/11/18 00:30 .Q24H [facility] Sodium Chloride 500 mls @ 30 mls/hr 04/08/18 01:00 Ns Inj IV.SIG 04/11/18 00:30 .Q10H [facility] Sodium Chloride 1,000 mls @ 70 mls/hr 04/08/18 22:15 04/10/18 02:35 Ns Inj IV.SIG 70 mls/hr .[id number] [facility] Administration Lactulose 30 ml 04/06/18 20:04 Lactulose Liq PO DAILY PRN SEVERE CONSITIPATION Levofloxacin 750 mg 04/07/18 09:00 04/10/18 08:56 Levaquin PO 750 mg DAILY [facility] Administration Morphine Sulfate 4 mg 04/08/18 23:56 04/10/18 14:29 Morphine Inj IV.PUSH 4 mg Q4H PRN Administration pain 6-10 Naloxone HCl 0.4 mg 04/07/18 00:57 Narcan Inj IV.PUSH UNSCH PRN SEE LABEL COMMENTS Nicotine 1 patch 04/07/18 09:00 04/10/18 08:58 Habitrol 14 Mg Patch.24 Hr T-DERMAL Not Given DAILY [facility] Nystatin 1 applicatio 04/07/18 18:00 04/10/18 14:29 Mycostatin Powder TOPICAL 1 applicatio QID [facility] Administration Pantoprazole Sodium 20 mg 04/07/18 09:00 04/10/18 08:57 Protonix PO 20 mg DAILY [facility] Administration Patch Removal 1 each 04/07/18 09:00 04/10/18 08:59 Remove Old Patch T-DERMAL Not Given Q24H [facility] Povidone Iodine 1 applicatio 04/08/18 00:30 Betadine 5% Antisepsis Kit EACH NARE 04/11/18 00:30 LANGUAGE TUTOR [facility] Senna/Docusate Sodium 1 tab 04/06/18 21:00 04/10/18 08:57 Felicia-Colace PO 1 tab BID [facility] Administration Sennosides 8.6 mg 04/06/18 21:00 04/10/18 08:56 Senokot PO 8.6 mg BID [facility] Administration Sennosides 17.2 mg 04/06/18 20:04 Senokot PO Q12H PRN Moderate Constipation Temazepam 15 mg 04/06/18 20:04 Restoril PO HS PRN INSOMNIA Allergies/Adverse Reactions: Allergies Allergy/AdvReac Type Severity Reaction Status Date / Time No Known Allergies Allergy Verified 04/06/18 17:04 Physical Exam Vital signs: Vital Signs 04/09/18 16:31 04/09/18 17:00 04/09/18 17:44 Temperature Pulse Rate 101 H 96 H 102 H Respiratory Rate Blood Pressure 138/81 147/72 H 138/83 Pulse Oximetry 91 L 91 L 89 L 04/09/18 18:00 04/09/18 18:02 04/09/18 19:00 Temperature Pulse Rate 95 H 95 H 98 H Respiratory Rate Blood Pressure 128/72 135/65 Pulse Oximetry 89 L 91 L 91 L 04/09/18 20:00 04/09/18 20:40 04/09/18 21:00 Temperature 98.0 F Pulse Rate 92 H 93 H Respiratory Rate 8 L Blood Pressure 144/83 H 154/94 H Pulse Oximetry 91 L 89 L 04/09/18 22:00 04/09/18 22:15 04/09/18 23:00 Temperature Pulse Rate 100 H 99 H Respiratory Rate 15 Blood Pressure 157/88 H 159/84 H Pulse Oximetry 89 L 89 L 04/10/18 00:00 04/10/18 04:00 04/10/18 04:58 Temperature 98.4 F 98.2 F Pulse Rate 95 H 90 94 H Respiratory Rate 14 16 18 Blood Pressure 123/66 160/75 H Pulse Oximetry 92 L 95 93 L 04/10/18 08:00 04/10/18 08:07 04/10/18 09:00 Temperature Pulse Rate 87 106 H Respiratory Rate Blood Pressure 142/95 H 159/97 H Pulse Oximetry 99 95 87 L 04/10/18 10:00 04/10/18 11:00 04/10/18 12:00 Temperature Pulse Rate 106 H 106 H 100 H Respiratory Rate Blood Pressure 129/66 127/83 141/81 H Pulse Oximetry 89 L 91 L 92 L Intake & Output 04/09/18 04/10/18 04/10/18 18:59 06:59 18:59 Intake Total 500 / 500 Output Total 400 / 400 Balance 100 / 100 Weight 90.3 kg Intake: Oral 500 / 500 Output: Urine 400 / 400 - Routine Neurological Exam alert, speech dysarthric. comprehension is normal CN intact MOTOR 5/5 BUE Objective Radiology Results: echocardiogram--normal Laboratory Results - last 24 hr 04/10/18 04/10/18 06:20 06:20 WBC 7.4 RBC 3.07 L Hgb 9.5 L Hct 28.4 L MCV 92.8 MCH 31.0 MCHC 33.4 RDW 17.1 Plt Count 414 MPV 7.3 Sodium 135 L Potassium 3.6 Chloride 100 Carbon Dioxide 26.7 Anion Gap 8 BUN 4 L Creatinine 0.59 L Estimated GFR Greater than 89 Random Glucose 122 H Calcium 7.8 L Microbiology 04/08/18 11:24 Gram Stain - Final Tissue - Foot Wound Culture - Preliminary No growth in 48 hours Review/Management - Diagnosis (1) TIA (transient ischemic attack) Code(s): G45.9 - Transient cerebral ischemic attack, unspecified Status: Acute Current Visit: Yes - Review/Management Plan: continue aspirin 325 mg daily
[2018-04-10] MEDS: Sod Chloride 0.9% Inj 1,000 ML IV.CONT SCH (19:38)
[2018-04-10] MEDS: Heparin - SQ 10,000 UNITS/ML Vial SQ SCH (22:58)
[2018-04-10] MEDS: Temazepam 15 MG Capsule PO PRN (23:03)
[2018-04-11] MEDS: Morphine Inj 4 MG/ML Vial IV.PUSH PRN ×3 (01:03→15:23)
[2018-04-11] MEDS: Nystatin 100,000 UNITS/GM Powder 15 GM Bottle TOPICAL SCH ×6 (01:15→23:17)
[2018-04-11] MEDS: Gabapentin 400 MG Capsule PO SCH ×4 (08:44→23:36)
[2018-04-11] MEDS: Aspirin 325 MG Tablet PO SCH (08:45)
[2018-04-11] MEDS: Senna/Docusate Sodium 8.6/50 MG Tablet PO SCH ×2 (08:45→23:38)
[2018-04-11] MEDS: levoFLOXacin 750 MG Tablet PO SCH (08:45)
[2018-04-11] MEDS: Pantoprazole Sodium 20 MG DR Tablet PO SCH (08:45)
[2018-04-11 11:26] LABS: Baso # (Auto) 0.1 th/mm3 (0.0-0.2); Eos # (Auto) 0.1 th/mm3 (0.0-0.4); Eos % (Auto) 1.5 % (0.0-4.0); Hematocrit 28.6 % (39.0-51.0); Hemoglobin 9.6 gm/dL (13.0-17.0); Lymph # (Auto) 1.4 th/mm3 (1.0-4.8); Lymph % (Auto) 19.7 % (9.0-44.0); Mean Corpuscular HGB Conc 33.5 % (32.0-36.0); Mean Corpuscular Hemoglobin 31.1 pg (27.0-34.0); Mean Corpuscular Volume 92.7 fL (80.0-100.0); Mean Platelet Volume 7.3 fL (7.0-11.0); Mono # (Auto) 0.8 th/mm3 (0.0-0.9); Mono % (Auto) 10.7 % (0.0-8.0); Neut # (Auto) 4.7 th/mm3 (1.8-7.7); Neut % (Auto) 67.1 % (16.0-70.0); Platelet Count 418 th/mm3 (150-450); Red Blood Count 3.08 mil/mm3 (4.50-5.90); Red Cell Distribution Width 17.3 % (11.6-17.2)
[2018-04-11 12:34] LABS: Alanine Aminotransferase 14 U/L (12-78); Albumin 2.1 g/dL (3.4-5.0); Alkaline Phosphatase 84 U/L (45-117); Anion Gap 11 meq/L (5-15); Aspartate Aminotransferase 22 U/L (15-37); Blood Urea Nitrogen 3 mg/dL (7-18); Calcium 7.3 mg/dL (8.5-10.1); Carbon Dioxide 25.1 meq/L (21.0-32.0); Chloride 100 meq/L (98-107); Free T4 (Free Thyroxine) 1.24 ng/dL (0.76-1.46); Glomerular Filtration Rate Greater Than 89 mL/min (>89); Glucose,Random 112 mg/dL (74-106); Magnesium 1.6 mg/dL (1.5-2.5); Phosphorus 3.5 mg/dL (2.5-4.9); Potassium 3.5 meq/L (3.5-5.1); Sodium 136 meq/L (136-145); Total Protein 5.2 g/dL (6.4-8.2)
--- NOTE | 2018-04-11 12:38 | P.PNIM ---
Subjective Interval history: Today patient complains of lack of sleep last night. Neurology is following. Further neurological monitoring is ongoing. He is status post foot surgery and podiatry is following and vascular surgery is following. No new complaints from the patient. Pain control. Physical Exam Vital signs: Vital Signs 04/10/18 16:00 04/10/18 17:37 04/10/18 19:50 Temperature 98.3 F 98.3 F Pulse Rate 95 H 68 Respiratory Rate 17 19 18 Blood Pressure 148/71 H 124/58 L Pulse Oximetry 96 97 04/10/18 21:00 04/10/18 22:58 04/11/18 00:40 Temperature 98.3 F Pulse Rate 95 H Respiratory Rate 19 19 19 Blood Pressure 135/87 Pulse Oximetry 93 L 04/11/18 01:00 04/11/18 01:17 04/11/18 04:20 Temperature 98 F 98.9 F Pulse Rate 89 88 Respiratory Rate 18 18 19 Blood Pressure 130/84 129/89 Pulse Oximetry 93 L 94 L 04/11/18 08:00 04/11/18 09:20 04/11/18 11:20 Temperature 97.5 F L Pulse Rate 94 H Respiratory Rate 16 17 Blood Pressure 136/74 Pulse Oximetry 92 L 92 L Intake & Output 04/10/18 04/11/18 04/11/18 18:59 06:59 18:59 Intake Total 1000 / 1000 3600 / 3600 Output Total 2725 / 2725 Balance 1000 / 1000 875 / 875 Weight 90 kg Intake: IV 1000 / 1000 1000 / 1000 NS Inj 1,000 ML @ 100 mls/hr IV 1000 / 1000 .CONT .Q10H [facility] Rx#:[id number] NS Inj 1,000 ML @ 70 mls/hr IV. 1000 / 1000 SIG .[id number] [facility] Rx#:[id number] Oral 2600 / 2600 Output: Urine 2725 / 2725 Other: Date of Last Bowel Movement 04/10/18 04/11/18 04/11/18 # Incontinent Bowel Movements 1 Narrative: GENERAL: NAD, A&Ox3 HEAD: Normocephalic. NECK: Supple, trachea midline. No lymphadenopathy. EYES: No scleral icterus. No injection or drainage. CARDIOVASCULAR: Regular rate and rhythm without murmurs, gallops, or rubs. RESPIRATORY: Breath sounds equal bilaterally. No accessory muscle use. GASTROINTESTINAL: Abdomen soft, non-tender, nondistended. MUSCULOSKELETAL: No cyanosis, or edema. Left foot is bandaged. SKIN: Warm and dry. NEURO: No focal neurological deficits. Results - Labs CBC & Chem 7: 04/11/18 10:33 04/10/18 06:20 Laboratory Results - last 24 hr 04/11/18 10:33 WBC 7.0 RBC 3.08 L Hgb 9.6 L Hct 28.6 L MCV 92.7 MCH 31.1 MCHC 33.5 RDW 17.3 H Plt Count 418 MPV 7.3 Neut % (Auto) 67.1 Lymph % (Auto) 19.7 [place] % (Auto) 10.7 H Eos % (Auto) 1.5 Baso % (Auto) 1.0 Neut # (Auto) 4.7 Lymph # (Auto) 1.4 [place] # (Auto) 0.8 Eos # (Auto) 0.1 Baso # (Auto) 0.1 WBC Differential . Differential Comment Auto diff final Microbiology 04/08/18 11:24 Tissue - Foot Gram Stain - Final 04/08/18 11:24 Tissue - Foot Wound Culture - Final No growth in 72 hours (aerobically and anaerobically ) - Procedures 04/08/2018 SURGEON: Arelis Awad DPM PREOPERATIVE DIAGNOSIS: Left foot gangrene noted to the fourth, third and first digit of left foot. POSTOPERATIVE DIAGNOSIS: Left foot gangrene noted to the fourth, third and first digit of left foot. OPERATION PERFORMED: Left transmetatarsal amputation. Assessment and Plan - Assessment (1) CVA (cerebral vascular accident) Code(s): I63.9 - Cerebral infarction, unspecified Status: Suspected Plan: Patient is status post partial left foot amputation. Stroke alert called overnight. His symptoms seems to be waxing and waning. Increase aspirin to 325 mg daily. Speech therapy for swallow eval Awaiting further input from neurology Given his symptoms are not completely resolved, CAN'T HAVE MRI DUE TO SPINAL STIMULATOR IN PLACE (2) Gangrene of left foot Code(s): I96 - Gangrene, not elsewhere classified Status: Acute Plan: Patient is status post revascularization by Dr. Duong Partial amputation recommended. Patient previously refused but agreed for amputation this admission. Appreciate podiatry following. Status post partial foot amputation ON THE LEFT Continue aspirin and Lipitor (3) Peripheral vascular disease Code(s): I73.9 - Peripheral vascular disease, unspecified Status: Acute Plan: Status post femoral popliteal bypass. See above. Lifestyle modification discussed. Continue aspirin and Lipitor. pain control. (4) COPD (chronic obstructive pulmonary disease) Code(s): J44.9 - Chronic obstructive pulmonary disease, unspecified Status: Chronic Plan: Duo nebs and supplemental oxygen as needed. (5) Cellulitis Code(s): L03.90 - Cellulitis, unspecified Status: Acute Plan: We will continue Levaquin for now. Left groin area appeared to have a fungal rash. Nystatin powder. - Plan 68-year-old male admitted secondary to left foot gangrene and cellulitis, status post amputation, status post acute CVA Acute CVA Continue aspirin Neurology following MRI none option due to spinal stimulator Left foot gangrene Left foot cellulitis Status post amputation Peripheral vascular disease Podiatry following Vascular surgery following Continue aspirin and Lipitor Continue Levaquin COPD No exacerbation Continue oxygen as needed Continue duo nebs Left groin candidiasis Continue nystatin powder DVT prophylaxis Continue heparin Discharge planning Neurological clearance, podiatry clearance, and vascular clearance and stability needed prior to discharge
[2018-04-11] MEDS: Sod Chloride 0.9% Inj 1,000 ML IV.CONT SCH (15:27)
[2018-04-11 21:48] LABS: Hemoglobin A1c 5.5 % (4.3-6.0)
[2018-04-11] MEDS: Heparin - SQ 10,000 UNITS/ML Vial SQ SCH (23:10)
--- NOTE | 2018-04-11 23:31 | P.PNPOD ---
Subjective Interval history: s/p TMA left foot Physical Exam Vital signs: Vital Signs 04/11/18 00:40 04/11/18 01:00 04/11/18 01:17 Temperature 98 F Pulse Rate 89 Respiratory Rate 19 18 18 Blood Pressure 130/84 Pulse Oximetry 93 L 04/11/18 04:20 04/11/18 08:00 04/11/18 09:20 Temperature 98.9 F 97.5 F L Pulse Rate 88 94 H Respiratory Rate 19 16 17 Blood Pressure 129/89 136/74 Pulse Oximetry 94 L 92 L 04/11/18 11:20 04/11/18 12:00 04/11/18 15:27 Temperature 97.7 F Pulse Rate 88 Respiratory Rate 17 17 Blood Pressure 125/68 Pulse Oximetry 92 L 94 L 04/11/18 16:00 04/11/18 20:00 04/11/18 23:06 Temperature 98.1 F 98.5 F Pulse Rate 95 H 97 H Respiratory Rate 18 18 18 Blood Pressure 154/82 H 135/75 Pulse Oximetry 93 L 94 L Intake & Output 04/11/18 04/11/18 04/12/18 06:59 18:59 06:59 Intake Total 3600 / 3600 1000 / 1000 1200 / 1200 Output Total 2725 / 2725 550 / 550 300 / 300 Balance 875 / 875 450 / 450 900 / 900 Weight 90 kg Intake: IV 1000 / 1000 1000 / 1000 NS Inj 1,000 ML @ 100 mls/hr IV 1000 / 1000 1000 / 1000 .CONT .Q10H [facility] Rx#:[id number] Oral 2600 / 2600 1200 / 1200 Output: Urine 2725 / 2725 550 / 550 300 / 300 Other: Date of Last Bowel Movement 04/11/18 04/11/18 # Bowel Movements 0 # Incontinent Bowel Movements 1 Medications and Allergies Active Medications: Active Medications Acetaminophen (Tylenol) 650 mg PO Q6HR PRN PRN Reason: PAIN SCALE 1 TO 2 Last Admin: 04/07/18 17:40 Dose: 650 mg Hydrocodone Bitart/Acetaminophen ([place] 5/325) 1 tab PO Q4H PRN PRN Reason: PAIN SCALE 3 TO 5 Hydrocodone Bitart/Acetaminophen ([place] 7.5/325) 1 tab PO Q4H PRN PRN Reason: PAIN SCALE 6 TO 10 Last Admin: 04/11/18 18:56 Dose: 1 tab Al Hydroxide/Mg Hydroxide (Milk Of Magnesia Liq) 30 ml PO Q12H PRN PRN Reason: Mild Constipation Albuterol (Duoneb Neb (Prn)) 1 ampul NEB Q4HR NEB PRN PRN Reason: SHORTNESS OF BREATH/WHEEZING Last Admin: 04/10/18 04:57 Dose: 1 ampul Aspirin (Aspirin) 325 mg PO DAILY [facility] Last Admin: 04/11/18 08:45 Dose: 325 mg Atorvastatin Calcium (Lipitor) 40 mg PO HS [facility] Last Admin: 04/10/18 23:00 Dose: 40 mg Bisacodyl (Dulcolax Supp) 10 mg RECTAL DAILY PRN PRN Reason: SEVERE CONSITIPATION Carvedilol (Coreg) 3.125 mg PO BID [facility] Last Admin: 04/08/18 08:10 Dose: 3.125 mg Gabapentin (Neurontin) 800 mg PO QID [facility] Last Admin: 04/11/18 14:47 Dose: 800 mg Heparin Sodium (Porcine) (Heparin Inj) 5,000 units SQ Q12H [facility] Last Admin: 04/10/18 22:58 Dose: 5,000 units Sodium Chloride (Ns Inj) 1,000 mls @ 100 mls/hr IV.CONT .Q10H [facility] Last Admin: 04/11/18 15:27 Dose: 100 mls/hr Sodium Chloride (Ns Inj) 1,000 mls @ 70 mls/hr IV.SIG .[id number] [facility] Last Admin: 04/10/18 22:50 Dose: 70 mls/hr Lactulose (Lactulose Liq) 30 ml PO DAILY PRN PRN Reason: SEVERE CONSITIPATION Levofloxacin (Levaquin) 750 mg PO DAILY [facility] Last Admin: 04/11/18 08:45 Dose: 750 mg Morphine Sulfate (Morphine Inj) 4 mg IV.PUSH Q4H PRN PRN Reason: pain 6-10 Last Admin: 04/11/18 15:23 Dose: 4 mg Naloxone HCl (Narcan Inj) 0.4 mg IV.PUSH UNSCH PRN PRN Reason: SEE LABEL COMMENTS Nicotine (Habitrol 14 Mg Patch.24 Hr) 1 patch T-DERMAL DAILY [facility] Last Admin: 04/11/18 08:49 Dose: Not Given Nystatin (Mycostatin Powder) 1 applicatio TOPICAL QID [facility] Last Admin: 04/11/18 18:58 Dose: 1 applicatio Pantoprazole Sodium (Protonix) 20 mg PO DAILY [facility] Last Admin: 04/11/18 08:45 Dose: 20 mg Patch Removal (Remove Old Patch) 1 each T-DERMAL Q24H [facility] Last Admin: 04/11/18 11:32 Dose: Not Given Senna/Docusate Sodium (Felicia-Colace) 1 tab PO BID [facility] Last Admin: 04/11/18 08:45 Dose: 1 tab Sennosides (Senokot) 8.6 mg PO BID [facility] Last Admin: 04/11/18 08:50 Dose: Not Given Sennosides (Senokot) 17.2 mg PO Q12H PRN PRN Reason: Moderate Constipation Temazepam (Restoril) 15 mg PO HS PRN PRN Reason: INSOMNIA Last Admin: 04/10/18 23:03 Dose: 15 mg Allergies Allergy/AdvReac Type Severity Reaction Status Date / Time No Known Allergies Allergy Verified 04/06/18 17:04 Home Medications Medication Instructions Recorded Confirmed Type Lactobacillus acidoph-L.bulgar 1 tab PO BID 04/01/18 04/06/18 History [Lactinex] gabapentin 800 mg PO QID 04/01/18 04/06/18 History hydrocodone-acetaminophen 1 tab PO DAILY 04/01/18 04/06/18 History nicotine 1 patch TRANSDERMAL DAILY 04/01/18 04/06/18 History omeprazole 20 mg PO DAILY 04/01/18 04/06/18 History sennosides 8.6 mg PO BID 04/01/18 04/06/18 History Results - Labs CBC & Chem 7: 04/11/18 10:33 04/11/18 10:33 Laboratory Results - last 24 hr 04/11/18 04/11/18 04/11/18 10:33 10:33 10:33 WBC 7.0 RBC 3.08 L Hgb 9.6 L Hct 28.6 L MCV 92.7 MCH 31.1 MCHC 33.5 RDW 17.3 H Plt Count 418 MPV 7.3 Neut % (Auto) 67.1 Lymph % (Auto) 19.7 [place] % (Auto) 10.7 H Eos % (Auto) 1.5 Baso % (Auto) 1.0 Neut # (Auto) 4.7 Lymph # (Auto) 1.4 [place] # (Auto) 0.8 Eos # (Auto) 0.1 Baso # (Auto) 0.1 WBC Differential . Differential Comment Auto diff final Sodium 136 Potassium 3.5 Chloride 100 Carbon Dioxide 25.1 Anion Gap 11 BUN 3 L Creatinine 0.46 L Estimated GFR Greater than 89 Random Glucose 112 H Hemoglobin A1c 5.5 Calcium 7.3 L* Prot Corrected Calcium 8.3 L Phosphorus 3.5 Magnesium 1.6 Total Bilirubin 0.3 AST 22 ALT 14 Alkaline Phosphatase 84 Total Protein 5.2 L Albumin 2.1 L TSH 4.100 H Free T4 1.24 Microbiology 04/08/18 11:24 Tissue - Foot Gram Stain - Final 04/08/18 11:24 Tissue - Foot Wound Culture - Final No growth in 72 hours (aerobically and anaerobically ) - Procedures 04/08/2018 SURGEON: Arelis Awad DPM PREOPERATIVE DIAGNOSIS: Left foot gangrene noted to the fourth, third and first digit of left foot. POSTOPERATIVE DIAGNOSIS: Left foot gangrene noted to the fourth, third and first digit of left foot. OPERATION PERFORMED: Left transmetatarsal amputation. Assessment and Plan - Assessment (1) Peripheral vascular disease Code(s): I73.9 - Peripheral vascular disease, unspecified Status: Acute - Plan S/p TMA left foot. Removed AUSTYN vac left foot and dry sterile dressing applied. Keep clean, dry, intact until next week. Follow up [address] Awad. Nonweightbearing left foot Cleared for discharge from podiatry standpoint.
[2018-04-12] MEDS: Morphine Inj 4 MG/ML Vial IV.PUSH PRN ×4 (08:53→23:49)
[2018-04-12] MEDS: Gabapentin 400 MG Capsule PO SCH ×5 (08:56→21:15)
[2018-04-12] MEDS: Pantoprazole Sodium 20 MG DR Tablet PO SCH (08:56)
[2018-04-12] MEDS: levoFLOXacin 750 MG Tablet PO SCH (08:56)
[2018-04-12] MEDS: Aspirin 325 MG Tablet PO SCH ×2 (08:56→20:59)
[2018-04-12 09:46] LABS: Baso # (Auto) 0.1 th/mm3 (0.0-0.2); Baso % (Auto) 0.9 % (0.0-2.0); Eos # (Auto) 0.1 th/mm3 (0.0-0.4); Hematocrit 28.6 % (39.0-51.0); Hemoglobin 9.5 gm/dL (13.0-17.0); Lymph # (Auto) 1.1 th/mm3 (1.0-4.8); Lymph % (Auto) 16.3 % (9.0-44.0); Mean Corpuscular HGB Conc 33.3 % (32.0-36.0); Mean Corpuscular Hemoglobin 31.1 pg (27.0-34.0); Mean Corpuscular Volume 93.3 fL (80.0-100.0); Mean Platelet Volume 7.4 fL (7.0-11.0); Mono # (Auto) 0.6 th/mm3 (0.0-0.9); Mono % (Auto) 9.1 % (0.0-8.0); Neut # (Auto) 4.8 th/mm3 (1.8-7.7); Neut % (Auto) 71.7 % (16.0-70.0); Platelet Count 481 th/mm3 (150-450); Red Blood Count 3.07 mil/mm3 (4.50-5.90); White Blood Count 6.7 th/mm3 (4.0-11.0)
[2018-04-12 10:15] LABS: Alanine Aminotransferase 12 U/L (12-78); Anion Gap 10 meq/L (5-15); Aspartate Aminotransferase 19 U/L (15-37); Blood Urea Nitrogen 3 mg/dL (7-18); Calcium 7.9 mg/dL (8.5-10.1); Carbon Dioxide 25.8 meq/L (21.0-32.0); Chloride 100 meq/L (98-107); Glomerular Filtration Rate Greater Than 89 mL/min (>89); Glucose,Random 85 mg/dL (74-106); Potassium 3.5 meq/L (3.5-5.1); Sodium 136 meq/L (136-145)
[2018-04-12 10:18] LABS: Alkaline Phosphatase 86 U/L (45-117); Total Protein 5.4 g/dL (6.4-8.2)
[2018-04-12] MEDS: Heparin - SQ 10,000 UNITS/ML Vial SQ SCH ×4 (12:41→23:48)
--- NOTE | 2018-04-12 13:19 | P.DS ---
Date of admission: 04/07/18 14:05 Primary care physician: No Primary Care Physician Brief History from admission: 68-year-old male with a medical history significant for COPD, peripheral vascular disease, paraplegia who recently had femoral popliteal bypass with Dr. Chavarria. Patient had significant revascularization down to his ankle, however the left foot remain gangrenous due to lummi vessel disease. A partial foot amputation was recommended, however the patient refused any intervention. He returned to the hospital with complaint of worsening left leg pain. On my evaluation today, he indicated that he is willing to go through with surgery. Of note the patient was discharged 2 days ago after he was treated for Pseudomonas UTI and lower extremity cellulitis. The patient also had evidence of NSTEMI during the last hospitalization but he refused any invasive cardiac workup. He was treated medically. The patient was discharged on Levaquin and heart medications. However he did not start any of these medications. The patient denies any fevers or chills. He is shortness of breath is at baseline. No chest pain. DS: Diagnosis - Discharge Diagnosis (1) CVA (cerebral vascular accident) Status: Suspected (2) Gangrene of left foot Status: Acute (3) Peripheral vascular disease Status: Acute (4) COPD (chronic obstructive pulmonary disease) Status: Chronic (5) Cellulitis Status: Acute DS: Summary Hospital Course: Mr. Wang is a 68 year old male. He was admitted secondary to gangrene of left foot. While here he has had his left distal foot amputated. He is doing well after the procedure. Podiatry has been following the wounds has cleared this patient for discharge today based on findings. Patient also had a familypop bypass perform a vascular surgery. He is recovering well from this. After the procedure he had a CVA. Deficits are minor at this point. Neurology has recommended an aspirin a day. Patient is medically stable and clear for transition to a [facility] facility at this point for continued care under physical therapy. Medically stable and cleared for discharge today. - Time Spent with Patient Total time spent providing and/or coordinating discharge services: - Quality: VTE Deep Vein Thrombosis/Pulmonary Embolism Present on Admission: No Exam Vital signs: Vital Signs 04/11/18 15:27 04/11/18 16:00 04/11/18 20:00 Temperature 98.1 F 98.5 F Pulse Rate 95 H 97 H Respiratory Rate 17 18 18 Blood Pressure 154/82 H 135/75 Pulse Oximetry 93 L 94 L 04/11/18 20:46 04/11/18 23:06 04/11/18 23:51 Temperature Pulse Rate 100 H Respiratory Rate 18 18 Blood Pressure Pulse Oximetry 04/12/18 00:20 04/12/18 04:51 04/12/18 05:20 Temperature 98.9 F 98 F Pulse Rate 88 84 88 Respiratory Rate 19 19 Blood Pressure 128/67 122/66 Pulse Oximetry 95 94 L 04/12/18 08:03 04/12/18 08:05 04/12/18 12:36 Temperature 98 F 98 F 97.9 F Pulse Rate 87 93 H Respiratory Rate 16 16 18 Blood Pressure 140/76 140/76 140/76 Pulse Oximetry 94 L 92 L Intake & Output 04/11/18 04/12/18 04/12/18 18:59 06:59 18:59 Intake Total 2000 / 2000 2950 / 2950 Output Total 550 / 550 1700 / 1700 Balance 1450 / 1450 1250 / 1250 Weight 90.5 kg Intake: IV 1999 / 1999 NS Inj 1,000 ML @ 100 mls/hr IV 1000 / 1000 .CONT .Q10H [facility] Rx#:[id number] NS Inj 1,000 ML @ 70 mls/hr IV. 1000 / 1000 SIG .[id number] [facility] Rx#:[id number] Oral 2950 / 2950 Output: Urine 550 / 550 1700 / 1700 Stool 0 / 0 Other: Date of Last Bowel Movement 04/11/18 04/12/18 # Bowel Movements 5 # Incontinent Bowel Movements 5 Results Procedures completed during hospitalization: 04/08/2018 SURGEON: Arelis Awad DPM PREOPERATIVE DIAGNOSIS: Left foot gangrene noted to the fourth, third and first digit of left foot. POSTOPERATIVE DIAGNOSIS: Left foot gangrene noted to the fourth, third and first digit of left foot. OPERATION PERFORMED: Left transmetatarsal amputation. Labs on day of discharge: Labs from last 24 hours 04/12/18 04/12/18 04/11/18 08:52 08:52 10:33 WBC 6.7 RBC 3.07 L Hgb 9.5 L Hct 28.6 L MCV 93.3 MCH 31.1 MCHC 33.3 RDW 17.0 Plt Count 481 H MPV 7.4 Neut % (Auto) 71.7 H Lymph % (Auto) 16.3 [place] % (Auto) 9.1 H Eos % (Auto) 2.0 Baso % (Auto) 0.9 Neut # (Auto) 4.8 Lymph # (Auto) 1.1 [place] # (Auto) 0.6 Eos # (Auto) 0.1 Baso # (Auto) 0.1 WBC Differential . Differential Comment Auto diff final Sodium 136 Potassium 3.5 Chloride 100 Carbon Dioxide 25.8 Anion Gap 10 BUN 3 L Creatinine 0.43 L Estimated GFR Greater than 89 Random Glucose 85 Hemoglobin A1c 5.5 Calcium 7.9 L Total Bilirubin 0.4 AST 19 ALT 12 Alkaline Phosphatase 86 Total Protein 5.4 L Albumin 2.0 L - Impressions ITS Impressions Foot X-Ray 04/08/18 00:00 CONCLUSION: Postsurgical changes with amputation at the distal metatarsal levels. Head CT 04/08/18 21:43 CONCLUSION: 1. No acute intracranial abnormalities. Partial opacification of the mastoid air cells bilaterally. Head CTA 04/08/18 21:51 CONCLUSION: 1. Negative CTA brain. Neck CTA 04/08/18 21:51 CONCLUSION: 1. No carotid stenosis. Atherosclerotic plaque around the carotid bifurcations. Right vertebral artery not patent within the neck but may reconstitute distally. The left vertebral artery and basilar artery are patent. Findings called to Dr. Pena. Discharge Plan - Discharge Disposition Patient Disposition: 03 Discharge to SNF - Discharge Condition Condition: Stable - Discharge Order Discharge Orders: Discharge Order (Routine); Ordered 04/12/18 Ordered By: Martir Walker - Discharge Details Anticipated Discharge Date: 04/12/18 - Physicians Team Primary Care Provider: Primary Care Zbarinai,Doris Attending Provider: Martir Walker Other Providers: [facility], ; [address] [place],[facility] ; [facility], [place] ; Bertram Luciano MD ; Arelis Awad, ELLIOTTM ; Jb Pena MD, PhD
--- NOTE | 2018-04-12 20:52 | P.PNNEU ---
Subjective Subjective Comments: No acute events reported feels speech is improving. Right side strenght normal Active Medications: Active Medications Acetaminophen (Tylenol) 650 mg PO Q6HR PRN PRN Reason: PAIN SCALE 1 TO 2 Last Admin: 04/07/18 17:40 Dose: 650 mg Hydrocodone Bitart/Acetaminophen ([place] 5/325) 1 tab PO Q4H PRN PRN Reason: PAIN SCALE 3 TO 5 Hydrocodone Bitart/Acetaminophen ([place] 7.5/325) 1 tab PO Q4H PRN PRN Reason: PAIN SCALE 6 TO 10 Last Admin: 04/12/18 16:21 Dose: 1 tab Al Hydroxide/Mg Hydroxide (Milk Of Magnesia Liq) 30 ml PO Q12H PRN PRN Reason: Mild Constipation Albuterol (Duoneb Neb (Prn)) 1 ampul NEB Q4HR NEB PRN PRN Reason: SHORTNESS OF BREATH/WHEEZING Last Admin: 04/10/18 04:57 Dose: 1 ampul Aspirin (Aspirin) 325 mg PO DAILY [facility] Last Admin: 04/12/18 08:56 Dose: 325 mg Atorvastatin Calcium (Lipitor) 40 mg PO HS [facility] Last Admin: 04/11/18 23:37 Dose: 40 mg Bisacodyl (Dulcolax Supp) 10 mg RECTAL DAILY PRN PRN Reason: SEVERE CONSITIPATION Carvedilol (Coreg) 3.125 mg PO BID [facility] Last Admin: 04/08/18 08:10 Dose: 3.125 mg Gabapentin (Neurontin) 800 mg PO QID [facility] Last Admin: 04/12/18 12:40 Dose: 800 mg Heparin Sodium (Porcine) (Heparin Inj) 5,000 units SQ Q12H [facility] Last Admin: 04/12/18 12:41 Dose: 5,000 units Sodium Chloride (Ns Inj) 1,000 mls @ 100 mls/hr IV.CONT .Q10H [facility] Last Admin: 04/11/18 15:27 Dose: 100 mls/hr Sodium Chloride (Ns Inj) 1,000 mls @ 70 mls/hr IV.SIG .[id number] [facility] Last Infusion: 04/11/18 13:08 Dose: Infused Lactulose (Lactulose Liq) 30 ml PO DAILY PRN PRN Reason: SEVERE CONSITIPATION Levofloxacin (Levaquin) 750 mg PO DAILY [facility] Last Admin: 04/12/18 08:56 Dose: 750 mg Morphine Sulfate (Morphine Inj) 4 mg IV.PUSH Q4H PRN PRN Reason: pain 6-10 Last Admin: 04/12/18 17:58 Dose: 4 mg Naloxone HCl (Narcan Inj) 0.4 mg IV.PUSH UNSCH PRN PRN Reason: SEE LABEL COMMENTS Nicotine (Habitrol 14 Mg Patch.24 Hr) 1 patch T-DERMAL DAILY [facility] Last Admin: 04/12/18 08:59 Dose: Not Given Nystatin (Mycostatin Powder) 1 applicatio TOPICAL QID [facility] Last Admin: 04/11/18 23:17 Dose: 1 applicatio Pantoprazole Sodium (Protonix) 20 mg PO DAILY [facility] Last Admin: 04/12/18 08:56 Dose: 20 mg Patch Removal (Remove Old Patch) 1 each T-DERMAL Q24H [facility] Last Admin: 04/11/18 11:32 Dose: Not Given Senna/Docusate Sodium (Felicia-Colace) 1 tab PO BID [facility] Last Admin: 04/11/18 23:38 Dose: Not Given Sennosides (Senokot) 8.6 mg PO BID [facility] Last Admin: 04/11/18 23:17 Dose: Not Given Sennosides (Senokot) 17.2 mg PO Q12H PRN PRN Reason: Moderate Constipation Temazepam (Restoril) 15 mg PO HS PRN PRN Reason: INSOMNIA Last Admin: 04/10/18 23:03 Dose: 15 mg Allergies/Adverse Reactions: Allergies Allergy/AdvReac Type Severity Reaction Status Date / Time No Known Allergies Allergy Verified 04/06/18 17:04 Physical Exam Vital signs: Vital Signs 04/11/18 23:06 04/11/18 23:51 04/12/18 00:20 Temperature 98.9 F Pulse Rate 88 Respiratory Rate 18 18 19 Blood Pressure 128/67 Pulse Oximetry 95 04/12/18 04:51 04/12/18 05:20 04/12/18 08:00 Temperature 98 F 98 F Pulse Rate 84 88 97 H Respiratory Rate 19 18 Blood Pressure 122/66 150/74 H Pulse Oximetry 94 L 95 04/12/18 08:03 04/12/18 08:05 04/12/18 12:00 Temperature 98 F 98 F Pulse Rate 87 95 H Respiratory Rate 16 16 Blood Pressure 140/76 140/76 Pulse Oximetry 94 L 04/12/18 12:36 04/12/18 16:00 Temperature 97.9 F 98.7 F Pulse Rate 93 H 90 Respiratory Rate 18 18 Blood Pressure 140/76 137/78 Pulse Oximetry 92 L 90 L Intake & Output 04/12/18 04/12/18 04/13/18 06:59 18:59 06:59 Intake Total 2950 / 2950 Output Total 1700 / 1700 Balance 1250 / 1250 Weight 90.5 kg Intake: Oral 2950 / 2950 Output: Urine 1700 / 1700 Stool 0 / 0 Other: Date of Last Bowel Movement 04/12/18 # Bowel Movements 5 # Incontinent Bowel Movements 5 - Routine Neurological Exam alert, speech mildly dysarthric CN intact MOTOR 5/5 RUE and RLE Objective Laboratory Results - last 24 hr 04/11/18 04/12/18 04/12/18 10:33 08:52 08:52 WBC 6.7 RBC 3.07 L Hgb 9.5 L Hct 28.6 L MCV 93.3 MCH 31.1 MCHC 33.3 RDW 17.0 Plt Count 481 H MPV 7.4 Neut % (Auto) 71.7 H Lymph % (Auto) 16.3 [place] % (Auto) 9.1 H Eos % (Auto) 2.0 Baso % (Auto) 0.9 Neut # (Auto) 4.8 Lymph # (Auto) 1.1 [place] # (Auto) 0.6 Eos # (Auto) 0.1 Baso # (Auto) 0.1 WBC Differential . Differential Comment Auto diff final Sodium 136 Potassium 3.5 Chloride 100 Carbon Dioxide 25.8 Anion Gap 10 BUN 3 L Creatinine 0.43 L Estimated GFR Greater than 89 Random Glucose 85 Hemoglobin A1c 5.5 Calcium 7.9 L Total Bilirubin 0.4 AST 19 ALT 12 Alkaline Phosphatase 86 Total Protein 5.4 L Albumin 2.0 L Microbiology 04/08/18 11:24 Acid Fast Bacilli Smear - Final Tissue - Foot No acid fast bacilli seen Review/Management - Diagnosis (1) TIA (transient ischemic attack) Code(s): G45.9 - Transient cerebral ischemic attack, unspecified Status: Acute Current Visit: Yes - Review/Management Plan: continue aspirin 325 mg daily
[2018-04-12] MEDS: Nystatin 100,000 UNITS/GM Powder 15 GM Bottle TOPICAL SCH ×6 (20:59→21:14)
[2018-04-12] MEDS: Sod Chloride 0.9% Inj 1,000 ML IV.CONT SCH ×6 (20:59→21:04)
[2018-04-12] MEDS: Sod Chloride 0.9% Inj 1,000 ML IV.SIG SCH ×3 (21:01→21:04)
[2018-04-12] MEDS: Senna/Docusate Sodium 8.6/50 MG Tablet PO SCH ×2 (21:03→21:06)
[2018-04-12] MEDS: Temazepam 15 MG Capsule PO PRN (21:06)
[2018-04-13] MEDS: Morphine Inj 4 MG/ML Vial IV.PUSH PRN ×2 (06:42→11:48)
[2018-04-13] MEDS: Sod Chloride 0.9% Inj 1,000 ML IV.CONT SCH ×2 (06:43→12:05)
[2018-04-13] MEDS: Sod Chloride 0.9% Inj 1,000 ML IV.SIG SCH ×2 (06:43→19:50)
[2018-04-13] MEDS: Aspirin 325 MG Tablet PO SCH (09:17)
[2018-04-13] MEDS: levoFLOXacin 750 MG Tablet PO SCH (09:17)
[2018-04-13] MEDS: Senna/Docusate Sodium 8.6/50 MG Tablet PO SCH (09:17)
[2018-04-13] MEDS: Gabapentin 400 MG Capsule PO SCH ×4 (09:17→20:07)
[2018-04-13] MEDS: Pantoprazole Sodium 20 MG DR Tablet PO SCH (09:18)
[2018-04-13] MEDS: Nystatin 100,000 UNITS/GM Powder 15 GM Bottle TOPICAL SCH ×3 (09:20→17:45)
--- NOTE | 2018-04-13 11:16 | P.PNIM ---
Subjective Interval history: He has been cleared for discharge to care home facility yesterday. Medically clear and orders in place as of yesterday. No significant changes compared to yesterday. Physical Exam Vital signs: Vital Signs 04/12/18 12:00 04/12/18 12:36 04/12/18 16:00 Temperature 97.9 F 98.7 F Pulse Rate 95 H 93 H 90 Respiratory Rate 18 18 Blood Pressure 140/76 137/78 Pulse Oximetry 92 L 90 L 04/12/18 20:00 04/13/18 00:00 04/13/18 04:00 Temperature 98 F 97.7 F Pulse Rate 98 H 102 H 91 H Respiratory Rate 18 18 Blood Pressure 106/60 132/76 Pulse Oximetry 94 L 95 04/13/18 09:15 Temperature Pulse Rate 95 H Respiratory Rate 19 Blood Pressure 144/73 H Pulse Oximetry 92 L Intake & Output 04/12/18 04/13/18 04/13/18 18:59 06:59 18:59 Output Total 200 / 200 300 / 300 Balance -200 / -200 -300 / -300 Weight 93.4 kg Output: Urine 200 / 200 300 / 300 Other: Date of Last Bowel Movement 04/12/18 04/12/18 Results - Labs CBC & Chem 7: 04/12/18 08:52 04/12/18 08:52 Microbiology 04/08/18 11:24 Tissue - Foot Acid Fast Bacilli Smear - Final No acid fast bacilli seen - Procedures 04/08/2018 SURGEON: Arelis Awad DPM PREOPERATIVE DIAGNOSIS: Left foot gangrene noted to the fourth, third and first digit of left foot. POSTOPERATIVE DIAGNOSIS: Left foot gangrene noted to the fourth, third and first digit of left foot. OPERATION PERFORMED: Left transmetatarsal amputation. Assessment and Plan - Assessment (1) CVA (cerebral vascular accident) Code(s): I63.9 - Cerebral infarction, unspecified Status: Suspected Plan: Patient is status post partial left foot amputation. Stroke alert called overnight. His symptoms seems to be waxing and waning. Increase aspirin to 325 mg daily. Speech therapy for swallow eval Awaiting further input from neurology Given his symptoms are not completely resolved, CAN'T HAVE MRI DUE TO SPINAL STIMULATOR IN PLACE (2) Gangrene of left foot Code(s): I96 - Gangrene, not elsewhere classified Status: Acute Plan: Patient is status post revascularization by Dr. Duong Partial amputation recommended. Patient previously refused but agreed for amputation this admission. Appreciate podiatry following. Status post partial foot amputation ON THE LEFT Continue aspirin and Lipitor (3) Peripheral vascular disease Code(s): I73.9 - Peripheral vascular disease, unspecified Status: Acute Plan: Status post femoral popliteal bypass. See above. Lifestyle modification discussed. Continue aspirin and Lipitor. pain control. (4) COPD (chronic obstructive pulmonary disease) Code(s): J44.9 - Chronic obstructive pulmonary disease, unspecified Status: Chronic Plan: Duo nebs and supplemental oxygen as needed. (5) Cellulitis Code(s): L03.90 - Cellulitis, unspecified Status: Acute Plan: We will continue Levaquin for now. Left groin area appeared to have a fungal rash. Nystatin powder. - Plan 68-year-old male admitted secondary to left foot gangrene and cellulitis, status post amputation, status post acute CVA Patient discharged on 04/12/2018. Awaiting placement at care home facility. Medically clear on 04/12/2018 for transfer to care home facility when bed available. Acute CVA Continue aspirin Left foot gangrene Left foot cellulitis Status post amputation Peripheral vascular disease Podiatry follow-up as an outpatient Vascular surgery follow-up as an outpatient Continue aspirin and Lipitor Continue Levaquin at discharge COPD No exacerbation Continue oxygen as needed Continue duo nebs Left groin candidiasis Continue nystatin powder DVT prophylaxis Continue heparin until discharge Discharge planning Patient discharge on 04/12/2018 to a care home facility.
[2018-04-13] MEDS: Heparin - SQ 10,000 UNITS/ML Vial SQ SCH (11:49)
== END 2018-04-13 21:59 ==
LOC: NEDA 16:46 → NEPD 16:46 → NEPGCP 20:51 → N06 04-08 10:56 → HIMC 04-08 22:10 → N05 04-10 15:21
PROVIDERS: ADMIT Hospitalist; ATTEND Hospitalist

== ENCOUNTER 2018-06-19 10:32 | Inpatient (IN) ==
--- NOTE | 2018-06-19 10:50 | ED ---
Triage General Time Seen by Provider: 06/19/18 10:48 History of Present Illness HPI narrative: 68 y/o male here c/o bilateral foot pain, he reports that he spoke to a nurse [facility] who told him that his physician at the [facility] wants him to go to the ER imemdiately in regards to his feet. He is a poor historian. Seen at triage desk awaiting bed placement. Home Meds Home Medications Medication Instructions Recorded Confirmed gabapentin 800 mg PO QID 04/01/18 04/06/18 hydrocodone-acetaminophen 1 tab PO DAILY 04/01/18 04/06/18 nicotine 1 patch TRANSDERMAL DAILY 04/01/18 04/06/18 omeprazole 20 mg PO DAILY 04/01/18 04/06/18 sennosides 8.6 mg PO BID 04/01/18 04/06/18 Previous Rx's Medication Instructions Recorded atorvastatin 40 mg PO HS #30 tab 04/04/18 carvedilol 3.125 mg PO BID #60 tab 04/04/18 Lactobacillus acidoph-L.bulgar 1 tab PO BID #30 tab 04/12/18 [Lactinex] aspirin 325 mg PO DAILY #30 tab 04/12/18 levofloxacin 750 mg PO DAILY #8 tab 04/12/18 nystatin [Nystop] 1 applicatio TOPICAL QID #1 tube 04/12/18 Allergies Allergies Allergy/AdvReac Type Severity Reaction Status Date / Time No Known Allergies Allergy Verified 04/06/18 17:04 Vital Signs Recall Vital Signs: Initial Documented Vital Signs Temperature 98.1 F 06/19/18 10:42 Pulse Rate 92 H 06/19/18 10:42 Respiratory Rate 16 06/19/18 10:42 Blood Pressure 131/61 06/19/18 10:42 Pulse Oximetry 90 L 06/19/18 10:42 Last Documented Vital Signs Temperature 98.1 F 06/19/18 10:42 Pulse Rate 92 H 06/19/18 10:42 Respiratory Rate 16 06/19/18 10:42 Blood Pressure 131/61 06/19/18 10:42 Pulse Oximetry 90 L 06/19/18 10:42 Vital Signs 3 l l l l 06/19/18 10:42 l l 06/19/18 10:42 l l Height 172.72 cm l l Weight 73.482 kg l l BMI 24.6 l l BP 131/61 l l Blood Pressure Location l l Position Sitting l l Respiration 16 l l Pulse 92 H l l Pulse Source l l Temp 98.1 F l l Temp Source Oral l l Pulse Oximetry (%) 90 L l l Oxygen Delivery Method l l Oxygen Flow Rate l l Comment [facility] Social History Social History Substance History: No History of Abuse Second Hand Smoke Exposure: Yes Smoking Status: Current every day smoker Tobacco Type: Cigarettes How Often Do You Have a Drink Containing Alcohol: Monthly or less Hx Recent Travel: Yes (Moved here from [facility] about 3 weeks ago) Recent Travel in [facility] within the Last 8 Weeks: No Recent Out of Country Travel within the Last 8 Weeks: No
[2018-06-19] MEDS ORDERED: Vancomycin Inj 1,000 MG in Sodium Chlor 0.9% Inj 250 ML IV.SIG STA (14:40)
[2018-06-19] MEDS ORDERED: Piperacil/Tazo 4.5 GM Premix 4.5 GM/100 ML BAG IV.SIG STA (14:40)
--- NOTE | 2018-06-19 14:54 | ED ---
HPI General Chief complaint: Skin/Abscess/Foreign Body Stated complaint: [facility] Time Seen by Provider: 06/19/18 10:48 Source: patient and old records reviewed History of Present Illness HPI narrative: The patient is a 68-year-old male with past medical history significant for right Chopar due to peripheral vascular disease paraplegia status post fem-pop bypass and foot amputation. The patient states that he has had a home care nurse that has been taking care of his wound but it is not healing so he was recommended to come to the emergency department for evaluation. He is to gangrene of the right foot at the area of the amputation and also starting to have lesions on his left foot as well as decubitus ulceration on large area of his buttocks due to being wheelchair bound. During his previous hospitalization the patient had a Pseudomonas UTI, his lower extremity cellulitis and an NSTEMI. He was subsequently discharged to a rehab center. complaint: lesion and other Onset (ago): unknown (Chronic) Tetanus Immunization: <5 Years Location: buttocks, L foot and R foot Severity: severe Related Data Home Medications Medication Instructions Recorded Confirmed omeprazole 20 mg PO DAILY 04/01/18 04/06/18 aspirin [Ye Aspirin] 325 mg PO DAILY 06/19/18 carvedilol [Coreg] 3.125 mg PO BID 06/19/18 gabapentin 06/19/18 Previous Rx's Medication Instructions Recorded atorvastatin 40 mg PO HS #30 tab 04/04/18 Allergies Allergy/AdvReac Type Severity Reaction Status Date / Time No Known Allergies Allergy Verified 04/06/18 17:04 Review of Systems ROS: all other systems reviewed are negative [facility] Medical History Medical History Depression (Acute) Hypercholesteremia (Acute) CHF (congestive heart failure) (Acute) Surgical History Surgical History Status post femoral-popliteal bypass surgery (Acute) Family History Family History Father Family history of cancer Social History Social History Substance History: No History of Abuse Second Hand Smoke Exposure: No Smoking Status: Current every day smoker Tobacco Type: Cigarettes How Often Do You Have a Drink Containing Alcohol: Monthly or less Hx Recent Travel: Yes (Moved here from [facility] about 3 weeks ago) Recent Travel in [facility] within the Last 8 Weeks: No Recent Out of Country Travel within the Last 8 Weeks: No Immunization History Tetanus Immunization: <5 Years Hx Influenza Vaccine This Season: Yes Exam Narrative Exam Narrative: GENERAL: Alert and oriented in no distress SKIN: Stage I decubitus pressure ulcers extensively on the patient's buttock. Bilateral foot cellulitis. HEAD: Atraumatic. Normocephalic. EYES: Pupils equal and round. No scleral icterus. No injection or drainage. ENT: No nasal bleeding or discharge. Mucous membranes pink and moist. NECK: Trachea midline. No JVD. CARDIOVASCULAR: Regular rate and rhythm. No murmur appreciated. RESPIRATORY: No accessory muscle use. Clear to auscultation. Breath sounds equal bilaterally. GASTROINTESTINAL: Abdomen soft, non-tender, nondistended. Hepatic and splenic margins not palpable. MUSCULOSKELETAL: N bilateral pitting edema. Left foot post amputation of all toes with macerated tissue drainage swollen soft tissue. No crepitus. Sensory is told on the left foot. Right foot with extensive cellulitis very tender to light palpation. Capillary refill present. NEUROLOGICAL: Awake and alert. No obvious cranial nerve deficits. Motor grossly within normal limits. For the patient who is wheelchair-bound. PSYCHIATRIC: Appropriate mood and affect; insight and judgment normal. Course Hospital Course: Leukocytosis of 11.2Patient received broad-spectrum antibiotics due to severity of his wound especially on the left foot. We did obtain an x-ray of the right foot appears to also be infected for several weeks that was unremarkable for ostial. Patient has several x-rays of the left foot. There was no crepitation on palpation of both feet. Leukocytosis of 11.2. Patient has chronic hyponatremia sodium of 121. Patient was admitted for surgical consultation wound debridement. Initial Documented Vital Signs Temperature 98.1 F 06/19/18 10:42 Pulse Rate 92 H 06/19/18 10:42 Respiratory Rate 16 06/19/18 10:42 Blood Pressure 131/61 06/19/18 10:42 Pulse Oximetry 90 L 06/19/18 10:42 Last Documented Vital Signs Temperature 98.1 F 06/20/18 00:00 Pulse Rate 110 H 06/20/18 00:00 Respiratory Rate 22 06/20/18 00:00 Blood Pressure 137/66 06/20/18 00:00 Pulse Oximetry 90 L 06/20/18 00:00 Medical Decision Making MDM Narrative Medical decision making narrative: Patient with severe infection of postoperative foot on the left and new infection on the right. Was admitted for podiatry consultation. Broad-spectrum antibiotics. Medical Screen Exam Complete: Yes Emergency Medical Condition: Yes Lab Data Lab results reviewed: Yes I reviewed the patient's lab results. Result diagrams: 06/20/18 05:12 06/19/18 14:45 Lab Results 06/19/18 06/19/18 06/19/18 Range/Units 14:45 14:45 14:45 WBC 11.2 H (4.0-11.0) th/mm3 RBC 4.50 (4.50-5.90) mil/mm3 Hgb 13.1 (13.0-17.0) gm/dL Hct 39.4 (39.0-51.0) % MCV 87.7 (80.0-100.0) fL MCH 29.2 (27.0-34.0) pg MCHC 33.3 (32.0-36.0) % RDW 19.3 H (11.6-17.2) % Plt Count 577 H (150-450) th/mm3 MPV 6.9 L (7.0-11.0) fL Neut % (Auto) 75.1 H (16.0-70.0) % Lymph % (Auto) 14.2 (9.0-44.0) % [place] % (Auto) 9.1 H (0.0-8.0) % Eos % (Auto) 1.1 (0.0-4.0) % Baso % (Auto) 0.5 (0.0-2.0) % Neut # (Auto) 8.4 H (1.8-7.7) th/mm3 Lymph # (Auto) 1.6 (1.0-4.8) th/mm3 [place] # (Auto) 1.0 H (0.0-0.9) th/mm3 Eos # (Auto) 0.1 (0.0-0.4) th/mm3 Baso # (Auto) 0.1 (0.0-0.2) th/mm3 WBC Differential . Differential Comment Auto diff final PT 15.4 H (9.8-11.6) sec INR 1.5 Ratio APTT 30.4 H (24.3-30.1) sec Sodium 121 L* (136-145) meq/L Potassium 3.8 (3.5-5.1) meq/L Chloride 84 L (98-107) meq/L Carbon Dioxide 26.9 (21.0-32.0) meq/L Anion Gap 10 (5-15) meq/L BUN 4 L (7-18) mg/dL Creatinine 0.49 L (0.60-1.30) mg/dL Estimated GFR Greater than 89 (>89) mL/min Random Glucose 96 (74-106) mg/dL Lactic Acid (0.4-2.0) mmol/L Calcium 8.4 L (8.5-10.1) mg/dL Total Bilirubin 1.0 (0.2-1.0) mg/dL AST 37 (15-37) U/L ALT 20 (12-78) U/L Alkaline Phosphatase 161 H (45-117) U/L Total Protein 7.3 (6.4-8.2) g/dL Albumin 2.7 L (3.4-5.0) g/dL 18 06/20/18 Range/Units 14:45 05:12 WBC 12.0 H (4.0-11.0) th/mm3 RBC 4.18 L (4.50-5.90) mil/mm3 Hgb 12.1 L (13.0-17.0) gm/dL Hct 36.7 L (39.0-51.0) % MCV 88.0 (80.0-100.0) fL MCH 29.0 (27.0-34.0) pg MCHC 33.0 (32.0-36.0) % RDW 19.5 H (11.6-17.2) % Plt Count 492 H (150-450) th/mm3 MPV 7.2 (7.0-11.0) fL Neut % (Auto) 78.4 H (16.0-70.0) % Lymph % (Auto) 10.3 (9.0-44.0) % [place] % (Auto) 10.1 H (0.0-8.0) % Eos % (Auto) 0.2 (0.0-4.0) % Baso % (Auto) 1.0 (0.0-2.0) % Neut # (Auto) 9.4 H (1.8-7.7) th/mm3 Lymph # (Auto) 1.2 (1.0-4.8) th/mm3 [place] # (Auto) 1.2 H (0.0-0.9) th/mm3 Eos # (Auto) 0.0 (0.0-0.4) th/mm3 Baso # (Auto) 0.1 (0.0-0.2) th/mm3 WBC Differential . Differential Comment Auto diff final PT (9.8-11.6) sec INR Ratio APTT (24.3-30.1) sec Sodium (136-145) meq/L Potassium (3.5-5.1) meq/L Chloride (98-107) meq/L Carbon Dioxide (21.0-32.0) meq/L Anion Gap (5-15) meq/L BUN (7-18) mg/dL Creatinine (0.60-1.30) mg/dL Estimated GFR (>89) mL/min Random Glucose (74-106) mg/dL Lactic Acid 1.2 (0.4-2.0) mmol/L Calcium (8.5-10.1) mg/dL Total Bilirubin (0.2-1.0) mg/dL AST (15-37) U/L ALT (12-78) U/L Alkaline Phosphatase (45-117) U/L Total Protein (6.4-8.2) g/dL Albumin (3.4-5.0) g/dL Imaging Data Radiologist's impression: Chest X-Ray 06/19/18 14:41 CONCLUSION: 1. Mild increased interstitial markings are noted consistent with possible pulmonary vascular congestion or viral pneumonitis. Clinical correlation is recommended. Foot X-Ray 06/19/18 15:34 CONCLUSION: 1. No acute fracture or dislocation. 2. Diffuse osteoporosis. Discharge Plan Discharge Disposition Patient Disposition: 30 Still Patient Discharge Condition Condition: Stable Discharge Details Diagnosis: Gangrene of left foot, Cellulitis, Hyponatremia Physicians Team ED Provider: Fahad Cisneros Primary Care Provider: Primary Care Doris Grant Attending Provider: Dawson Galvin Other Providers: Solo Mello ; Aba Treviño Discharge Interventions Interventions: ED Discharge Assessment Last Done: 06/19/18 18:31 Vital Signs Last Done: 06/19/18 14:42 Status ED Status: Left Department Discharge Information Discharge Date/Time: 06/19/18 18:38
[2018-06-19 15:01] LABS: Baso # (Auto) 0.1 th/mm3 (0.0-0.2); Baso % (Auto) 0.5 % (0.0-2.0); Eos # (Auto) 0.1 th/mm3 (0.0-0.4); Eos % (Auto) 1.1 % (0.0-4.0); Hematocrit 39.4 % (39.0-51.0); Hemoglobin 13.1 gm/dL (13.0-17.0); Lymph # (Auto) 1.6 th/mm3 (1.0-4.8); Lymph % (Auto) 14.2 % (9.0-44.0); Mean Corpuscular HGB Conc 33.3 % (32.0-36.0); Mean Corpuscular Hemoglobin 29.2 pg (27.0-34.0); Mean Corpuscular Volume 87.7 fL (80.0-100.0); Mean Platelet Volume 6.9 fL (7.0-11.0); Mono % (Auto) 9.1 % (0.0-8.0); Neut # (Auto) 8.4 th/mm3 (1.8-7.7); Neut % (Auto) 75.1 % (16.0-70.0); Platelet Count 577 th/mm3 (150-450); Red Cell Distribution Width 19.3 % (11.6-17.2); White Blood Count 11.2 th/mm3 (4.0-11.0)
[2018-06-19 15:11] LABS: Activated Partial Thrombo Time 30.4 sec (24.3-30.1); INR 1.5 Ratio; Prothrombin Time 15.4 sec (9.8-11.6)
[2018-06-19 15:37] LABS: Alanine Aminotransferase 20 U/L (12-78); Albumin 2.7 g/dL (3.4-5.0); Alkaline Phosphatase 161 U/L (45-117); Anion Gap 10 meq/L (5-15); Aspartate Aminotransferase 37 U/L (15-37); Blood Urea Nitrogen 4 mg/dL (7-18); Calcium 8.4 mg/dL (8.5-10.1); Carbon Dioxide 26.9 meq/L (21.0-32.0); Chloride 84 meq/L (98-107); Glomerular Filtration Rate Greater Than 89 mL/min (>89); Glucose,Random 96 mg/dL (74-106); Potassium 3.8 meq/L (3.5-5.1); Total Protein 7.3 g/dL (6.4-8.2)
[2018-06-19 15:42] LABS: Sodium 121 meq/L (136-145)
--- NOTE | 2018-06-19 15:45 | XR ---
EXAM DATE: 06/19/2018 3:42 PM EDT AGE/SEX: 68 years / Male INDICATIONS: Fever, cough, short of breath CLINICAL DATA: This is the patient's initial encounter. Patient reports that signs and symptoms have been present for 3 days and indicates a pain score of Nonresponsive. MEDICAL/SURGICAL HISTORY: Non-responsive. Non-responsive. COMPARISON: [facility] [place]ST SINGLE AP, 03/31/2018. . FINDINGS: Mild increased interstitial markings are noted consistent with possible pulmonary vascular congestion or viral pneumonitis. Clinical correlation is recommended. The heart is stable. Spinal stimulator le ads are noted within the thoracic spine. CONCLUSION: 1. Mild increased interstitial markings are noted consistent with possible pulmonary vascular conges tion or viral pneumonitis. Clinical correlation is recommended. Electronically signed by: Uri Echols MD 06/19/2018 3:44 PM EDT
--- NOTE | 2018-06-19 15:57 | XR ---
EXAM DATE: 06/19/2018 3:52 PM EDT AGE/SEX: 68 years / Male INDICATIONS: Right foot pain and swelling, infection. CLINICAL DATA: This is the patient's initial encounter. Patient reports that signs and symptoms have been present for 3 months and indicates a pain score of 8/10. MEDICAL/SURGICAL HISTORY: None. None. COMPARISON: [facility] – [place], FOOT RIGHT COMPLETE ([id number]), 03/13/2018. . FINDINGS: Diffuse osteoporosis is noted involving the right foot. There is no acute fracture or dislocation. CONCLUSION: 1. No acute fracture or dislocation. 2. Diffuse osteoporosis. Electronically signed by: Uri Echols MD 06/19/2018 3:56 PM EDT
[2018-06-19] MEDS ORDERED: Acetaminophen 325 MG Tablet PO PRN (16:38)
[2018-06-19] MEDS ORDERED: Bisacodyl 10 MG Supp RECTAL PRN (16:38)
[2018-06-19] MEDS: Sod Chloride 0.9% Inj 1,000 ML IV.CONT SCH (17:29)
--- NOTE | 2018-06-19 20:00 | P.HPIM ---
History of Present Illness Primary Care Physician: No Primary Care Physician History of Present Illness: This patient is a 68-year-old male with a past medical history of severe peripheral vascular disease, paraplegia and is wheelchair-bound, status post stem pop bypass and partial left foot amputation. He also has chronic hyponatremia. The patient was recently admitted at our facility and was treated for an STEMI as well as bilateral foot cellulitis. He was evaluated by podiatry and at that time was refusing treatment and recommendations. The patient is wheelchair-bound and has some ulcerations of bilateral buttocks as well as worsening bilateral foot cellulitis. Because of his symptoms he was sent almost department for evaluation and care. He denies having any fevers or chills however the pain his feet and ulcerations were getting worse so he came in for evaluation. He denies any abdominal pain, no diarrhea, no chest pain, shortness of breath. Inpatient Certification: I certify that the inpatient services were ordered in accordance with Medicare regulations governing the order. This includes certification that hospital inpatient services are reasonable and necessary and in the case of services not specified as inpatient-only under 42 CFR 419.22(n), that they are appropriately provided as inpatient services in accordance to with the 2-midnight benchmark under 43 CFR 412.3(e) Estimated Total Length of Stay (Days): 3 Plans for Post Hospital Care: Other Review of Systems All other systems reviewed negative except as stated in HPI PMFSH - History History Provided By: Patient - Medical History Medical History: Medical History (Last Updated 06/19/18 @ 14:16 by Claire Jorge) Depression Hypercholesteremia CHF (congestive heart failure) - Surgical History Surgical History: Surgical History (Last Reviewed 06/19/18 @ 14:16 by Claire Jorge) Status post femoral-popliteal bypass surgery - Family History Family History: Family History (Last Reviewed 04/09/18 @ 07:53 by Katie Meredith RN) Father Family history of cancer - Tobacco History Second Hand Smoke Exposure: No Tobacco Use In Past 30 Days: Yes Smoking Status: Current every day smoker Tobacco Type: Cigarettes - Alcohol History How Often Do You Have a Drink Containing Alcohol: Monthly or less - Substance Use History Substance History: No History of Abuse - Travel History History of Recent Travel: Yes (Moved here from [facility] about 3 weeks ago) Recent Travel in the [facility] Within the Last 8 Weeks: No Recent Travel Out of the Country Within the Last 8 Weeks: No - Immunization History Tetanus Immunization: <5 Years Hx Influenza Vaccine This Season: Yes Medications and Allergies Active Medications: Active Medications Acetaminophen (Tylenol) 650 mg PO Q4H PRN PRN Reason: Temp > 100.4 Al Hydroxide/Mg Hydroxide (Milk Of Magnesia Liq) 30 ml PO Q12H PRN PRN Reason: Mild Constipation Bisacodyl (Dulcolax Supp) 10 mg RECTAL DAILY PRN PRN Reason: SEVERE CONSITIPATION Sodium Chloride (Ns Inj) 1,000 mls @ 100 mls/hr IV.CONT .Q10H ZULEMA Last Admin: 06/19/18 17:29 Dose: 100 mls/hr Lactulose (Lactulose Liq) 30 ml PO DAILY PRN PRN Reason: SEVERE CONSITIPATION Senna/Docusate Sodium (Felicia-Colace) 1 tab PO BID [facility] Sennosides (Senokot) 17.2 mg PO Q12H PRN PRN Reason: Moderate Constipation Allergies Allergy/AdvReac Type Severity Reaction Status Date / Time No Known Allergies Allergy Verified 04/06/18 17:04 Home Medications Medication Instructions Recorded Confirmed Type omeprazole 20 mg PO DAILY 04/01/18 04/06/18 History aspirin [Ye Aspirin] 325 mg PO DAILY 06/19/18 History carvedilol [Coreg] 3.125 mg PO BID 06/19/18 History Exam Vital signs: Vital Signs 06/19/18 10:42 06/19/18 14:42 06/19/18 17:51 Temperature 98.1 F Pulse Rate 92 H 92 H 106 H Respiratory Rate 16 17 20 Blood Pressure 131/61 141/67 H 147/75 H Pulse Oximetry 90 L 82 L 96 Intake & Output 06/19/18 06/19/18 06/20/18 06:59 18:59 06:59 Intake Total 350 / 350 Balance 350 / 350 Weight 73.482 kg Intake: IV 350 / 350 Zosyn 4.5 GM Premix 4.5 gm In 100 / 100 100 ml @ 200 mls/hr IV.SIG STAT STA Rx#:[id number] Vancomycin Inj 1,000 MG In NS 250 / 250 Inj 250 ML @ 250 mls/hr IV.SIG STAT STA Rx#:[id number] Narrative: General patient in no acute distress HEENT extraocular movements are intact, clear oropharyngeal mucosa, no JVD Cardiovascular S1-S2 audible, RRR, no murmurs rubs or gallops Respiratory clear to auscultation bilaterally Abdomen soft, nontender, nondistended, normal bowel sounds Extremities 1+ pitting edema bilateral lower extremities up to the shins, bilateral foot cellulitis, left foot wrapped in bandage, no active drainage noted from the right foot Results - Labs CBC & Chem 7: 06/19/18 14:45 06/19/18 14:45 Labs: Short CBC 06/19/18 Range/Units 14:45 WBC 11.2 H (4.0-11.0) th/mm3 Hgb 13.1 (13.0-17.0) gm/dL Hct 39.4 (39.0-51.0) % Plt Count 577 H (150-450) th/mm3 BMP 06/19/18 14:45 Sodium 121 L* Potassium 3.8 Chloride 84 L Carbon Dioxide 26.9 BUN 4 L Creatinine 0.49 L Calcium 8.4 L Liver Function 06/19/18 Range/Units 14:45 Total Bilirubin 1.0 (0.2-1.0) mg/dL AST 37 (15-37) U/L ALT 20 (12-78) U/L Alkaline Phosphatase 161 H (45-117) U/L Albumin 2.7 L (3.4-5.0) g/dL - Imaging Impressions Chest X-Ray 06/19/18 14:41 CONCLUSION: 1. Mild increased interstitial markings are noted consistent with possible pulmonary vascular congestion or viral pneumonitis. Clinical correlation is recommended. Foot X-Ray 06/19/18 15:34 CONCLUSION: 1. No acute fracture or dislocation. 2. Diffuse osteoporosis. Caprini VTE Risk Assessment Caprini VTE Risk Assessment: Moderate/High Risk (score >= 2) Caprini Risk Assessment Model: Point Value = 1 Point Value = 2 Point Value = 3 Point Value = 5 Age 41-60 Minor surgery BMI > 25 kg/m2 Swollen legs Varicose veins or History of unexplained or recurrent spontaneous Oral contraceptives or hormone replacement Sepsis (< 1 month) Serious lung disease, including pneumonia (< 1 month) Abnormal pulmonary function Acute myocardial infarction Congestive heart failure (< 1 month) History of inflammatory bowel disease Medical patient at bed rest Age 61-74 Arthroscopic surgery Major open surgery (> 45 min) Laparoscopic surgery (> 45 min) Malignancy Confined to bed (> 72 hours) Immobilizing plaster cast Central venous access Age >= 75 History of VTE Family history of VTE Factor V Leiden Prothrombin [id number] Lupus anticoagulant Anticardiolipin antibodies Elevated serum homocysteine Heparin-induced thrombocytopenia Other congenital or acquired thrombophilia Stroke (< 1 month) Elective arthroplasty Hip, pelvis, or leg fracture Acute spinal cord injury (< 1 month) Prophylaxis Regimen: Total Risk Factor Score Risk Level Prophylaxis Regimen 0-1 Low Early ambulation 2 Moderate Order ONE of the following: *Sequential Compression Device (SCD) *Heparin 5000 units SQ BID 3-4 Higher Order ONE of the following medications: *Heparin 5000 units SQ TID *Enoxaparin/Lovenox 40 mg SQ daily (WT < 150 kg, CrCl > 30 mL/min) *Enoxaparin/Lovenox 30 mg SQ daily (WT < 150 kg, CrCl > 10-29 mL/min) *Enoxaparin/Lovenox 30 mg SQ BID (WT < 150 kg, CrCl > 30 mL/min) AND/OR *Sequential Compression Device (SCD) 5 or more Highest Order ONE of the following medications: *Heparin 5000 units SQ TID (Preferred with Epidurals) *Enoxaparin/Lovenox 40 mg SQ daily (WT < 150 kg, CrCl > 30 mL/min) *Enoxaparin/Lovenox 30 mg SQ daily (WT < 150 kg, CrCl > 10-29 mL/min) *Enoxaparin/Lovenox 30 mg SQ BID (WT < 150 kg, CrCl > 30 mL/min) AND *Sequential Compression Device (SCD) Assessment and Plan - Plan This patient is a 68-year-old male with above-mentioned past medical history severe peripheral vascular disease, status post partial amputation of the left foot.. The patient presented with worsening bilateral lower extremity cellulitis. Because of his symptoms he was sent to our emergency department for evaluation and care. 1. Bilateral lower extremity cellulitis and severe peripheral vascular disease. The patient is currently on IV antibiotics, wound cultures and blood cultures have been ordered and will be followed up. Podiatry has been consulted to evaluate the patient further management recommendations regarding possible debridement and/or amputation. We will follow up with recommendations. 2. Hyponatremia Patient has hyponatremia currently in the low 120s. After reviewing the patient 's recent admissions it appears that the patient usually had a sodium level below 130. He will be started on normal saline as the patient appears dry on physical examination. Patient's hyponatremia is possibly secondary due to dehydration as he has been having poor p.o. intake. Nephrology will be consulted to evaluate the patient for hyponatremia. 3. History of an STEMI. Continue aspirin, statin, and beta-ermias. No DVT prophylaxis for today as the patient will be evaluated by podiatry and may possibly require surgery. If the patient does not undergo surgery will be started on pharmacotherapy for DVT prophylaxis.
[2018-06-19] MEDS: Senna/Docusate Sodium 8.6/50 MG Tablet PO SCH (21:25)
[2018-06-20] MEDS: Sod Chloride 0.9% Inj 1,000 ML IV.CONT SCH ×2 (03:49→14:05)
[2018-06-20 06:56] LABS: Baso # (Auto) 0.1 th/mm3 (0.0-0.2); Eos % (Auto) 0.2 % (0.0-4.0); Hematocrit 36.7 % (39.0-51.0); Hemoglobin 12.1 gm/dL (13.0-17.0); Lymph # (Auto) 1.2 th/mm3 (1.0-4.8); Lymph % (Auto) 10.3 % (9.0-44.0); Mean Platelet Volume 7.2 fL (7.0-11.0); Mono # (Auto) 1.2 th/mm3 (0.0-0.9); Mono % (Auto) 10.1 % (0.0-8.0); Neut # (Auto) 9.4 th/mm3 (1.8-7.7); Neut % (Auto) 78.4 % (16.0-70.0); Platelet Count 492 th/mm3 (150-450); Red Blood Count 4.18 mil/mm3 (4.50-5.90); Red Cell Distribution Width 19.5 % (11.6-17.2)
[2018-06-20 07:41] LABS: Anion Gap 13 meq/L (5-15); Blood Urea Nitrogen 4 mg/dL (7-18); Calcium 7.5 mg/dL (8.5-10.1); Carbon Dioxide 23.5 meq/L (21.0-32.0); Chloride 93 meq/L (98-107); Glomerular Filtration Rate Greater Than 89 mL/min (>89); Glucose,Random 141 mg/dL (74-106); Potassium 3.2 meq/L (3.5-5.1); Sodium 129 meq/L (136-145)
--- NOTE | 2018-06-20 07:48 | ECG ---
Date Performed: 06/19/2018 Time Performed: 15:35:05 PTAGE: 68 years EKG: Sinus rhythm POSSIBLE LEFT ATRIAL ENLARGEMENT MINIMAL ST DEPRESSION BORDERLINE ECG PREVIOUS TRACING : 04/08/2018 22.22 Since the previous tracing, no significant change noted DOCTOR: Melanie Pena Interpretating Date/Time 06/20/2018 07:46:18
[2018-06-20] MEDS: Senna/Docusate Sodium 8.6/50 MG Tablet PO SCH ×2 (08:12→23:22)
--- NOTE | 2018-06-20 12:35 | P.CONNP ---
History of Present Illness Service: Nephrology Reason for Consult: Hyponatremia Primary Care Provider: No Primary Care Physician Family Provider: No Primary Care Physician History of Present Illness: Mr. Wang is a 68 year old male with history of paraplegia, PAD. He also appears to have chronic hyponatremia. He is s/p left Fem-pop bypass surgery. He has been admitted with ulcers on his buttocks and worsening cellulitis of legs and feet. He is s/p partial amputation (amputation of the toes) left foot. His serum Na was 121 on admission, he has been given IVF, today it is 129 which appears to be his baseline. He is a poor historian. Continues to smoke. Review of Systems Constitutional: Reports anorexia, Reports weight loss Ears, Nose, Mouth, and Throat: Denies abnormal hearing Cardiovascular: Reports leg pain with activity, Reports shortness of breath, Denies chest pain Respiratory: Reports cough, Reports wheezing Gastrointestinal: Denies abdominal pain, Denies black, tarry stools, Denies loose stools, Denies nausea, Denies vomiting PMFSH - History History Provided By: Patient - Medical History Medical History: Medical History (Last Reviewed 06/20/18 @ 07:21 by Fahad Cisneros DO) Depression Hypercholesteremia CHF (congestive heart failure) - Surgical History Surgical History: Surgical History (Last Reviewed 06/20/18 @ 07:21 by Fahad Cisneros DO) Status post femoral-popliteal bypass surgery - Family History Family History: Family History (Last Reviewed 06/20/18 @ 07:21 by Fahad Cisneros DO) Father Family history of cancer - Tobacco History Second Hand Smoke Exposure: No Tobacco Use In Past 30 Days: Yes Smoking Status: Current every day smoker Tobacco Type: Cigarettes - Alcohol History How Often Do You Have a Drink Containing Alcohol: Monthly or less - Substance Use History Substance History: No History of Abuse - Travel History History of Recent Travel: Yes (Moved here from [facility] about 3 weeks ago) Recent Travel in the [facility] Within the Last 8 Weeks: No Recent Travel Out of the Country Within the Last 8 Weeks: No - Immunization History Tetanus Immunization: <5 Years Hx Influenza Vaccine This Season: Yes Medications and Allergies Active Medications: Active Medications Acetaminophen (Tylenol) 650 mg PO Q4H PRN PRN Reason: Temp > 100.4 Hydrocodone Bitart/Acetaminophen (Nutley 7.5/325) 1 tab PO Q4H PRN PRN Reason: pain > 6 Last Admin: 06/20/18 06:40 Dose: 1 tab Hydrocodone Bitart/Acetaminophen (Nutley 5/325) 1 tab PO Q4H PRN PRN Reason: pain 3 - 6 Last Admin: 06/20/18 10:45 Dose: 1 tab Al Hydroxide/Mg Hydroxide (Milk Of Magnesia Liq) 30 ml PO Q12H PRN PRN Reason: Mild Constipation Aspirin (Aspirin Chew) 81 mg PO DAILY [facility] Last Admin: 06/20/18 08:12 Dose: 81 mg Atorvastatin Calcium (Lipitor) 40 mg PO HS [facility] Last Admin: 06/19/18 21:23 Dose: 40 mg Bisacodyl (Dulcolax Supp) 10 mg RECTAL DAILY PRN PRN Reason: SEVERE CONSITIPATION Carvedilol (Coreg) 3.125 mg PO BID [facility] Last Admin: 06/20/18 08:13 Dose: 3.125 mg Sodium Chloride (Ns Inj) 1,000 mls @ 100 mls/hr IV.CONT .Q10H [facility] Last Admin: 06/20/18 03:49 Dose: 100 mls/hr Lactulose (Lactulose Liq) 30 ml PO DAILY PRN PRN Reason: SEVERE CONSITIPATION Senna/Docusate Sodium (Felicia-Colace) 1 tab PO BID [facility] Last Admin: 06/20/18 08:12 Dose: Not Given Sennosides (Senokot) 17.2 mg PO Q12H PRN PRN Reason: Moderate Constipation Allergies Allergy/AdvReac Type Severity Reaction Status Date / Time No Known Allergies Allergy Verified 04/06/18 17:04 Home Medications Medication Instructions Recorded Confirmed Type omeprazole 20 mg PO DAILY 04/01/18 04/06/18 History aspirin [Ye Aspirin] 325 mg PO DAILY 06/19/18 History carvedilol [Coreg] 3.125 mg PO BID 06/19/18 History gabapentin 06/19/18 History Exam Vital signs: Vital Signs 06/19/18 14:42 06/19/18 17:51 06/19/18 20:00 Temperature 97.4 F L Pulse Rate 92 H 106 H 105 H Respiratory Rate 17 20 22 Blood Pressure 141/67 H 147/75 H 166/77 H Pulse Oximetry 82 L 96 90 L 06/20/18 00:00 06/20/18 10:23 Temperature 98.1 F Pulse Rate 110 H Respiratory Rate 22 Blood Pressure 137/66 Pulse Oximetry 90 L 91 L Intake & Output 06/19/18 06/20/18 06/20/18 18:59 06:59 18:59 Intake Total 350 / 350 1000 / 1000 Balance 350 / 350 1000 / 1000 Weight 73.482 kg Intake: IV 350 / 350 1000 / 1000 NS Inj 1,000 ML @ 100 mls/hr IV 1000 / 1000 .CONT .Q10H ZULEMA Rx#:[id number] Zosyn 4.5 GM Premix 4.5 gm In 100 / 100 100 ml @ 200 mls/hr IV.SIG STAT STA Rx#:[id number] Vancomycin Inj 1,000 MG In NS 250 / 250 Inj 250 ML @ 250 mls/hr IV.SIG STAT STA Rx#:[id number] Other: Date of Last Bowel Movement 06/18/18 - Constitutional no acute distress, thin, chronically ill appearing - Routine HEENT Exam Head: Present: normocephalic, atraumatic Eye: Present: EOMI, PERRL - Routine Neck Exam Present: supple. Absent: JVD, lymphadenopathy - Routine Respiratory Exam Present: rhonchi, wheezes - Routine Cardiovascular Exam Present: RRR, S1, S2 - Routine Abdominal Exam Present: soft, normoactive bowel sounds - Routine Extremities Exam Absent: edema Comments: left transmetatarsal amputation - Routine Skin Exam Present: erythema - Routine Neurological Exam Present: alert, oriented X3 Results - Lab Results 06/20/18 05:12 06/20/18 05:12 Most recent lab results Calcium 7.5 mg/dL (8.5-10.1) L D 06/20/18 05:12 Assessment and Plan - Assessment (1) Hyponatremia Code(s): E87.1 - Hypo-osmolality and hyponatremia Status: Acute Plan: may have chronic hyponatremia: may have SIADH. He is on SSRI, also may have chronic lung issues, continues to smoke. Acute worsening of hyponatremia could be due to hypovolemic hyponatremia. Hyponatremia has improved with hydration. I will obtain serum uric acid, urine osmolality and serum osmolality. Also obtain urine Na, but since he has been given IVF, it will not accurately reflect his presentation. I will reduce IVF. Stop IVF by frandyorrow. On the skilled nursing, he will require fluid restriction with or without salt tablets and loop diuretic if he has SIADH. Consider CT of the chest since he is a skilled nursing smoker to rule out underlying malignancy. (2) COPD (chronic obstructive pulmonary disease) Code(s): J44.9 - Chronic obstructive pulmonary disease, unspecified Status: Chronic Plan: bronchodilators, tobacco cessation was advised. (3) Peripheral vascular disease Code(s): I73.9 - Peripheral vascular disease, unspecified Status: Acute Plan: continue risk factor modifications. He is currently being treated with antibiotics for cellulitis. - Attending Attestation Thanks for the consult.
[2018-06-20 14:29] LABS: Uric Acid 2.9 mg/dl (2.6-7.2)
[2018-06-20] MEDS ORDERED: Vancomycin Consult Pharmacy OTHER PRN (17:17)
--- NOTE | 2018-06-20 17:19 | P.PNIM ---
Subjective Interval history: Patient says he is feeling all right. Reports pain is controlled. Denies any chest pain or shortness of breath Physical Exam Vital signs: Vital Signs 06/19/18 17:51 06/19/18 20:00 06/20/18 00:00 Temperature 97.4 F L 98.1 F Pulse Rate 106 H 105 H 110 H Respiratory Rate 20 22 22 Blood Pressure 147/75 H 166/77 H 137/66 Pulse Oximetry 96 90 L 90 L 06/20/18 08:00 06/20/18 10:23 06/20/18 12:00 Temperature 97.9 F 97.6 F Pulse Rate 87 81 Respiratory Rate 20 18 Blood Pressure 147/62 H 135/72 Pulse Oximetry 88 L 91 L 92 L 06/20/18 16:00 Temperature 97.2 F L Pulse Rate 88 Respiratory Rate 18 Blood Pressure 125/57 L Pulse Oximetry 95 Intake & Output 06/19/18 06/20/18 06/20/18 18:59 06:59 18:59 Intake Total 350 / 350 1000 / 1000 840 / 840 Output Total 850 / 850 Balance 350 / 350 1000 / 1000 -10 / -10 Weight 73.482 kg Intake: IV 350 / 350 1000 / 1000 NS Inj 1,000 ML @ 100 mls/hr IV 1000 / 1000 .CONT .Q10H ZULEMA Rx#:[id number] Zosyn 4.5 GM Premix 4.5 gm In 100 / 100 100 ml @ 200 mls/hr IV.SIG STAT STA Rx#:[id number] Vancomycin Inj 1,000 MG In NS 250 / 250 Inj 250 ML @ 250 mls/hr IV.SIG STAT STA Rx#:[id number] Oral 840 / 840 Output: Urine 850 / 850 Other: Date of Last Bowel Movement 06/18/18 # Bowel Movements 0 Narrative: GENERAL: Patient sitting up in bed. Appears comfortable. SKIN: Warm and dry. HEAD: Normocephalic. EYES: No scleral icterus. No injection or drainage. NECK: Supple, trachea midline. No JVD or lymphadenopathy. CARDIOVASCULAR: Regular rate and rhythm without murmurs, gallops, or rubs. RESPIRATORY: Breath sounds equal bilaterally. No accessory muscle use. GASTROINTESTINAL: Abdomen soft, non-tender, nondistended. MUSCULOSKELETAL: No cyanosis, or edema. Left lower extremity dressed with dressing clean dry and intact. I discussed with podiatry who reports there is exposed bone. BACK: Nontender without obvious deformity. No CVA tenderness. Results - Labs CBC & Chem 7: 06/20/18 05:12 06/20/18 05:12 Laboratory Results - last 24 hr 06/20/18 06/20/18 06/20/18 05:12 05:12 13:18 WBC 12.0 H RBC 4.18 L Hgb 12.1 L Hct 36.7 L MCV 88.0 MCH 29.0 MCHC 33.0 RDW 19.5 H Plt Count 492 H MPV 7.2 Neut % (Auto) 78.4 H Lymph % (Auto) 10.3 [place] % (Auto) 10.1 H Eos % (Auto) 0.2 Baso % (Auto) 1.0 Neut # (Auto) 9.4 H Lymph # (Auto) 1.2 [place] # (Auto) 1.2 H Eos # (Auto) 0.0 Baso # (Auto) 0.1 WBC Differential . Differential Comment Auto diff final Sodium 129 L Potassium 3.2 L Chloride 93 L D Carbon Dioxide 23.5 Anion Gap 13 BUN 4 L Creatinine 0.53 L Estimated GFR Greater than 89 Random Glucose 141 H Osmolality 264 L Uric Acid 2.9 Calcium 7.5 L D Microbiology 06/19/18 14:45 Wound - Foot Gram Stain - Final 06/19/18 14:45 Wound - Foot Wound Culture - Preliminary 06/19/18 14:45 Wound - Buttock Gram Stain - Final 06/19/18 14:45 Wound - Buttock Wound Culture - Preliminary Proteus species 06/19/18 14:38 Blood - Peripheral Aerobic Blood Culture - Preliminary No growth in 1 day 06/19/18 14:38 Blood - Peripheral Anaerobic Blood Culture - Preliminary No growth in 1 day 06/19/18 14:45 Blood - Peripheral Aerobic Blood Culture - Preliminary No growth in 1 day 06/19/18 14:45 Blood - Peripheral Anaerobic Blood Culture - Preliminary No growth in 1 day Assessment and Plan - Plan This patient is a 68-year-old male with above-mentioned past medical history severe peripheral vascular disease, status post partial amputation of the left foot.. The patient presented with worsening bilateral lower extremity cellulitis. Because of his symptoms he was sent to our emergency department for evaluation and care. //Bilateral lower extremity cellulitis and severe peripheral vascular disease. 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 Podiatry has been consulted to evaluate the patient further management recommendations regarding possible debridement and/or amputation. We will follow up with recommendations. = proteus on wound cultures. Continue IV antibiotics. Discussed with podiatry. Appreciate assistance. Will START antibiotics. // Hyponatremia Patient has hyponatremia currently in the low 120s. After reviewing the patient 's recent admissions it appears that the patient usually had a sodium level below 130. He will be started on normal saline as the patient appears dry on physical examination. Patient's hyponatremia is possibly secondary due to dehydration as he has been having poor p.o. intake. Nephrology will be consulted to evaluate the patient for hyponatremia. = Sodium improving to 129 today. Nephrology following. Appreciate assistance. //Hypokalemia. Potassium 3.2. Replace and monitor. // History of an STEMI. Continue aspirin, statin, and beta-ermias. DVT prophy: No DVT prophylaxis for today as the patient will be evaluated by podiatry and may possibly require surgery. If the patient does not undergo surgery will be started on pharmacotherapy for DVT prophylaxis.
--- NOTE | 2018-06-20 17:24 | MB ---
cc: Aba Gordillo DPM DATE: 06/20/2018 REASON FOR CONSULTATION: Left foot nonhealing Chopart amputation, right lower extremity PVD cellulitis. HISTORY OF PRESENT ILLNESS: A 68-year-old male who is known to the hospital in late March and early April for worsening gangrene and PVD. The patient underwent a vascular intervention and to the best of my knowledge had a surgical amputation, a Chopart amputation, of the left foot. It appears to be nonhealing. The patient cannot recall the surgeon, I am having difficulty finding records of where this was done; patient is a poor historian. He states that his feet hurt so much that he has to keep his legs over the bed. There is a possibility of worsening PVD at this point. Much of the history is taken from the chart. PAST MEDICAL HISTORY: Depression, hypercholesteremia, CHF, PVD, smoking, gangrenous left forefoot, bilateral lower extremity PVD, paraplegia, history of decubitus ulceration of the buttocks, history of Pseudomonas UTI, lower extremity cellulitis. DRUG ALLERGIES: NONE LISTED. INPATIENT MEDICATIONS: P.r.n. meds. No antibiotics listed currently. Please see complete list in chart. PHYSICAL EXAMINATION: GENERAL: This is an alert and oriented male; however, he is having a hard time going through his past medical history and recent surgical events. He seems to remember Dr. Luciano, vascular surgeon from the hospital. VITAL SIGNS: Temperature 97.6, pulse rate 81, respiratory rate 18, blood pressure is 135/72, he is saturating 92% on room air. The patient has limited use of his extremities; however, he is capable of crossing his legs and bending his knees. The left lower extremity is examined. There is mainly fibrotic, open, mixed, mainly sloughing, nonhealing tissue with exposed bone at the level of the Chopart's with the midfoot bone exposed. There is mild odor. There is moderate redness. There is moderate edema of the bilateral lower extremities. the right lower extremity, there appears to be superficial bright fibrotic lesions and interdigital maceration. There is chronic edema noted to bilateral knees and distal. There is a cool feeling from the calf down to the toes on the right and from the calf down to the ankle on the left. Sensation appears to be intact to deep pressure, but not light touch. LABORATORY DATA: White blood cell 12, hemoglobin and hematocrit 12 and 36, platelet count is 492. Coagulation profile: PT 15.4, INR 1.5. Chem-7: Sodium 129, potassium 3.2, chloride 93, BUN 4, creatinine 0.53. Random blood glucose is 141. Microbial findings: Proteus was noted from the buttock wound. No growth is noted from the blood culture. Gram stain from the left foot -- many gram-negative rods and cocci in pairs. X-ray right foot, no acute fracture process or dislocation. Diffuse osteopenia noted. ASSESSMENT AND PLAN: Failing right foot Chopart amputation, peripheral vascular disease, likely infected foot stump wound, bilateral peripheral vascular disease. I am requesting vascular evaluate the patient for further intervention versus [id number] amputation on the left; however, may need [id number] amputation. The right lower extremity at this point, appears to have ischemic changes, and the patient has to keep the foot in a dependent position regarding pain and cramping. The overall prognosis for right foot salvage is fair to poor at this point. I will await vascular evaluation before I recommend debridement. I am most certainly positive that the left foot will fail any more debridement. I do not think that the left foot can be salvaged. I may recommend addition of antibiotics with infectious disease consultation as the patient has a buttock wound. The patient has a polymicrobial infection of the foot and appears to have a positive wound culture from the buttock area. I will follow the patient in the next 1-2 days. For now, it is just wet-to-dry bandaging. NIKITA Sinha , 04:26 PM , 04:37 PM
[2018-06-20] MEDS: Piperacil/Tazo 4.5 GM Premix 4.5 GM/100 ML BAG IV.SIG SCH (23:24)
[2018-06-21] MEDS: Vancomycin Inj 1,000 MG in Sodium Chlor 0.9% Inj 250 ML IV.SIG SCH ×4 (00:18→22:43)
[2018-06-21] MEDS: Piperacil/Tazo 4.5 GM Premix 4.5 GM/100 ML BAG IV.SIG SCH ×4 (02:31→22:35)
[2018-06-21 07:42] LABS: Albumin 2.5 g/dL (3.4-5.0); Anion Gap 10 meq/L (5-15); Blood Urea Nitrogen 3 mg/dL (7-18); Calcium 7.7 mg/dL (8.5-10.1); Carbon Dioxide 23.3 meq/L (21.0-32.0); Chloride 97 meq/L (98-107); Glucose,Random 111 mg/dL (74-106); Potassium 3.6 meq/L (3.5-5.1); Sodium 130 meq/L (136-145)
[2018-06-21 07:43] LABS: Glomerular Filtration Rate Greater Than 89 mL/min (>89); Phosphorus 2.7 mg/dL (2.5-4.9)
[2018-06-21] MEDS: Senna/Docusate Sodium 8.6/50 MG Tablet PO SCH ×2 (08:34→22:35)
[2018-06-21] MEDS: Sod Chloride 0.9% Inj 1,000 ML IV.CONT SCH (08:39)
--- NOTE | 2018-06-21 10:57 | P.PNNP ---
Subjective Interval history: Serum Na has improved. Stop IVF. Urine and serum Osmolality and uric acid all are pending. Physical Exam Vital signs: Vital Signs 06/20/18 12:00 06/20/18 16:00 06/20/18 20:00 Temperature 97.6 F 97.2 F L 97.5 F L Pulse Rate 81 88 84 Respiratory Rate 18 18 20 Blood Pressure 135/72 125/57 L 129/64 Pulse Oximetry 92 L 95 92 L 06/21/18 00:00 06/21/18 08:00 Temperature 97.1 F L 98.0 F Pulse Rate 85 92 H Respiratory Rate 20 18 Blood Pressure 159/63 H 139/62 Pulse Oximetry 92 L 94 L Intake & Output 06/20/18 06/21/18 06/21/18 18:59 06:59 18:59 Intake Total 1840 / 1840 1450 / 1450 Output Total 850 / 850 Balance 990 / 990 1450 / 1450 Intake: IV 1000 / 1000 1450 / 1450 NS Inj 1,000 ML @ 50 mls/hr IV. 1000 / 1000 1000 / 1000 CONT .Q20H ZULEMA Rx#:[id number] Zosyn 4.5 GM Premix 4.5 gm In 200 / 200 100 ml @ 200 mls/hr IV.SIG Q6H ZULEMA Rx#:[id number] Vancomycin Inj 1,000 MG In NS 250 / 250 Inj 250 ML @ 250 mls/hr IV.SIG Q8H ZULEMA Rx#:[id number] Oral 840 / 840 Output: Urine 850 / 850 Other: # Voids 2 Date of Last Bowel Movement 06/18/18 06/18/18 # Bowel Movements 0 1 Narrative: GENERAL: Patient sitting up in bed. Appears comfortable. SKIN: Warm and dry. HEAD: Normocephalic. EYES: No scleral icterus. No injection or drainage. NECK: Supple, trachea midline. No JVD or lymphadenopathy. CARDIOVASCULAR: Regular rate and rhythm without murmurs, gallops, or rubs. bilateral wheezing and rhonchi. No accessory muscle use. GASTROINTESTINAL: Abdomen soft, non-tender, nondistended. MUSCULOSKELETAL: chronic skin changes, left forefoot amputaion. BACK: Nontender without obvious deformity. No CVA tenderness. Assessment and Plan - Assessment (1) Hyponatremia Code(s): E87.1 - Hypo-osmolality and hyponatremia Status: Acute Plan: may have chronic hyponatremia: may have SIADH. He is on SSRI, also may have chronic lung issues, continues to smoke. Acute worsening of hyponatremia could be due to hypovolemic hyponatremia. Hyponatremia has improved with hydration. I had ordered serum uric acid, urine osmolality and serum osmolality. Stop IVF. 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 (2) COPD (chronic obstructive pulmonary disease) Code(s): J44.9 - Chronic obstructive pulmonary disease, unspecified Status: Chronic Plan: bronchodilators, tobacco cessation was advised. (3) Peripheral vascular disease Code(s): I73.9 - Peripheral vascular disease, unspecified Status: Acute Plan: continue risk factor modifications. He is currently being treated with antibiotics for cellulitis. - Attending Attestation I will sign off at this time.
--- NOTE | 2018-06-21 10:58 | P.PNIM ---
Subjective Interval history: Patient says he is feeling right. Reports pain is controlled. Denies any chest pain shortness of breath. Physical Exam Vital signs: Vital Signs 06/20/18 12:00 06/20/18 16:00 06/20/18 20:00 Temperature 97.6 F 97.2 F L 97.5 F L Pulse Rate 81 88 84 Respiratory Rate 18 18 20 Blood Pressure 135/72 125/57 L 129/64 Pulse Oximetry 92 L 95 92 L 06/21/18 00:00 06/21/18 08:00 Temperature 97.1 F L 98.0 F Pulse Rate 85 92 H Respiratory Rate 20 18 Blood Pressure 159/63 H 139/62 Pulse Oximetry 92 L 94 L Intake & Output 06/20/18 06/21/18 06/21/18 18:59 06:59 18:59 Intake Total 1840 / 1840 1450 / 1450 Output Total 850 / 850 Balance 990 / 990 1450 / 1450 Intake: IV 1000 / 1000 1450 / 1450 NS Inj 1,000 ML @ 50 mls/hr IV. 1000 / 1000 1000 / 1000 CONT .Q20H ZULEMA Rx#:[id number] Zosyn 4.5 GM Premix 4.5 gm In 200 / 200 100 ml @ 200 mls/hr IV.SIG Q6H ZULEMA Rx#:[id number] Vancomycin Inj 1,000 MG In NS 250 / 250 Inj 250 ML @ 250 mls/hr IV.SIG Q8H ZULEMA Rx#:[id number] Oral 840 / 840 Output: Urine 850 / 850 Other: # Voids 2 Date of Last Bowel Movement 06/18/18 06/18/18 # Bowel Movements 0 1 Narrative: GENERAL: Patient sitting up on edge of bed.. Appears comfortable. SKIN: Warm and dry. HEAD: Normocephalic. EYES: No scleral icterus. No injection or drainage. NECK: Supple, trachea midline. No JVD or lymphadenopathy. CARDIOVASCULAR: Regular rate and rhythm without murmurs, gallops, or rubs. RESPIRATORY: Breath sounds equal bilaterally. No accessory muscle use. GASTROINTESTINAL: Abdomen soft, non-tender, nondistended. MUSCULOSKELETAL: No cyanosis, or edema. Left lower extremity dressed with dressing clean dry and intact. BACK: Nontender without obvious deformity. No CVA tenderness. Results - Labs CBC & Chem 7: 06/20/18 05:12 06/21/18 06:38 Laboratory Results - last 24 hr 06/20/18 06/21/18 13:18 06:38 Sodium 130 L Potassium 3.6 Chloride 97 L Carbon Dioxide 23.3 Anion Gap 10 BUN 3 L Creatinine 0.43 L Estimated GFR Greater than 89 Random Glucose 111 H Osmolality 264 L Uric Acid 2.9 Calcium 7.7 L Phosphorus 2.7 Albumin 2.5 L Microbiology 06/19/18 14:45 Wound - Foot Gram Stain - Final 06/19/18 14:45 Wound - Foot Wound Culture - Preliminary 06/19/18 14:45 Wound - Buttock Gram Stain - Final 06/19/18 14:45 Wound - Buttock Wound Culture - Preliminary Proteus species 06/19/18 14:38 Blood - Peripheral Aerobic Blood Culture - Preliminary No growth in 1 day 06/19/18 14:38 Blood - Peripheral Anaerobic Blood Culture - Preliminary No growth in 1 day 06/19/18 14:45 Blood - Peripheral Aerobic Blood Culture - Preliminary No growth in 1 day 06/19/18 14:45 Blood - Peripheral Anaerobic Blood Culture - Preliminary No growth in 1 day Assessment and Plan - Plan This patient is a 68-year-old male with above-mentioned past medical history severe peripheral vascular disease, status post partial amputation of the left foot.. The patient presented with worsening bilateral lower extremity cellulitis. Because of his symptoms he was sent to our emergency department for evaluation and care. //Bilateral lower extremity cellulitis and severe peripheral vascular disease. 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 Podiatry has been consulted to evaluate the patient further management recommendations regarding possible debridement and/or amputation. We will follow up with recommendations. = proteus on wound cultures. Continue IV antibiotics. Discussed with podiatry. Appreciate assistance. Will START antibiotics. = Vascular surgery consult pending. Appreciate podiatry and vascular surgery assistance. // Hyponatremia Patient has hyponatremia currently in the low 120s. After reviewing the patient 's recent admissions it appears that the patient usually had a sodium level below 130. He will be started on normal saline as the patient appears dry on physical examination. Patient's hyponatremia is possibly secondary due to dehydration as he has been having poor p.o. intake. Nephrology will be consulted to evaluate the patient for hyponatremia. = Sodium improving to 129 today. Nephrology following. Appreciate assistance. = 06/21. Sodium improving to 130. //Hypokalemia. Potassium 3.2. Replace and monitor. = 06/21. Potassium 3.6. Resolved after replacement. // History of an STEMI. Continue aspirin, statin, and beta-ermias. DVT prophy: No DVT prophylaxis for today as the patient will be evaluated by podiatry and may possibly require surgery. If the patient does not undergo surgery will be started on pharmacotherapy for DVT prophylaxis. Discharge Planning: Pending podiatry, vascular surgery clearance May need IV antibiotics.
[2018-06-21] MEDS ORDERED: Pharmacy Ordered Lab Info OTHER ONE (14:45)
--- NOTE | 2018-06-21 18:46 | P.PNVS ---
Subjective Subjective/Hospital Course: Patient seen and full consult dictated. Thanks J Objective Vital Signs / I&O: Vital Signs 06/20/18 20:00 06/21/18 00:00 06/21/18 08:00 Temperature 97.5 F L 97.1 F L 98.0 F Pulse Rate 84 85 92 H Respiratory Rate 20 20 18 Blood Pressure 129/64 159/63 H 139/62 Pulse Oximetry 92 L 92 L 94 L 06/21/18 12:00 06/21/18 15:32 06/21/18 17:49 Temperature 98.8 F 97.7 F Pulse Rate 87 79 Respiratory Rate 22 18 Blood Pressure 148/63 H 139/54 L Pulse Oximetry 86 L 98 98 Intake & Output 06/20/18 06/21/18 06/21/18 18:59 06:59 18:59 Intake Total 1840 / 1840 1450 / 1450 2420 / 2420 Output Total 850 / 850 550 / 550 Balance 990 / 990 1450 / 1450 1870 / 1870 Intake: IV 1000 / 1000 1450 / 1450 1700 / 1700 NS Inj 1,000 ML @ 50 mls/hr IV. 1000 / 1000 1000 / 1000 1000 / 1000 CONT .Q20H ZULEMA Rx#:[id number] Zosyn 4.5 GM Premix 4.5 gm In 200 / 200 200 / 200 100 ml @ 200 mls/hr IV.SIG Q6H ZULEMA Rx#:[id number] Vancomycin Inj 1,000 MG In NS 250 / 250 500 / 500 Inj 250 ML @ 250 mls/hr IV.SIG Q8H ZULEMA Rx#:[id number] Oral 840 / 840 720 / 720 Output: Urine 850 / 850 550 / 550 Other: # Voids 2 Date of Last Bowel Movement 06/18/18 06/18/18 # Bowel Movements 0 1 0 Laboratory Results - last 24 hr 06/21/18 06/21/18 06:38 14:30 Sodium 130 L Potassium 3.6 Chloride 97 L Carbon Dioxide 23.3 Anion Gap 10 BUN 3 L Creatinine 0.43 L Estimated GFR Greater than 89 Random Glucose 111 H Calcium 7.7 L Phosphorus 2.7 Albumin 2.5 L Vancomycin Trough 13.5 H Microbiology 06/19/18 14:45 Gram Stain - Final Wound - Buttock Wound Culture - Preliminary Proteus species Group D Enterococcus 06/19/18 14:45 Gram Stain - Final Wound - Foot Wound Culture - Preliminary S. aureus MRSA Group D Enterococcus 06/19/18 14:38 Aerobic Blood Culture - Preliminary Blood - Peripheral No growth in 2 days Anaerobic Blood Culture - Preliminary No growth in 2 days 06/19/18 14:45 Aerobic Blood Culture - Preliminary Blood - Peripheral No growth in 2 days Anaerobic Blood Culture - Preliminary No growth in 2 days
--- NOTE | 2018-06-21 20:37 | MB ---
cc: Bertram Luciano MD DATE: 06/21/2018 CONSULTING PHYSICIAN: Bertram Luciano MD, Vascular Surgery REASON FOR CONSULTATION: Ischemia of both legs, left more than right, gangrene of the left foot, paraplegia, sepsis, diabetes mellitus. HISTORY OF PRESENT ILLNESS: This 68-year-old male is known to me from previous admissions. In March of this year, he underwent successful left femoral popliteal bypass graft, which is still patent. Nonetheless, the patient has severe disease below the level of the trifurcation with interrupted trifurcation vessels, going all the way to both feet. The patient is also pretty noncompliant with his care. He now comes back with gangrene of the left foot, where he had a Chopart amputation performed. This amputation was apparently performed at the [facility] in [facility]. Since he left here, he never followed up with my office. The question arises now about salvageability of the foot, and question arises about the vascular implications. PAST MEDICAL HISTORY: Paraplegia, or paraparesis, more so; the patient is using his legs to move from bed to chair. Recurrent DVT. Known peripheral vascular disease. Hypertension. Renal insufficiency. Hyponatremia. PAST SURGICAL HISTORY: Reconstruction of the left leg in where the patient was injured in a bear trap in the [place], left femoral popliteal bypass in March as above noted, and then Chopart amputation at some other institution. PHYSICAL EXAMINATION: GENERAL: Reveals a 68-year-old male, appearing older than his actual age. HEENT: Normocephalic. No trauma to the head. Pupils are equal and reactive. Extraocular muscles intact. NECK: Bilateral carotid pulses right 3-6 bruit, but this has been worked up and has been negative for carotid stenosis. CHEST: Bilateral breath sounds decreased in both lung mejia. The patient has moderate COPD. He has obvious chest wall musculature loss and pulmonary cachexia signs. HEART: Regular rhythm. ABDOMEN: Soft. Active bowel sounds. EXTREMITIES: The patient has very weak bilateral femoral pulses, but good dopplerable pulses. No distal pulses on palpation on the left side. The patient has a clearly patent femoral popliteal graft with superb Doppler signal alongside the graft and in the popliteal artery. On the right side, the patient has a weak right popliteal artery, but present. There is no dorsalis pedis or posterior tibial pulse on the right and, on the left, the patient has a dressing on top of the Chopart amputation and this is foul smelling. In addition, the patient has bilateral ischial decubitus ulcers. Both legs are covered with shiny distended skin. The patient has significant lower extremity edema. NEUROLOGIC: The patient is a functionally paraplegic, although he is sort of paraparetic because he can move his legs a little bit and move from wheelchair to bed and back. RECOMMENDATIONS: At this point, left femoropopliteal bypass is widely patent with excellent signal. Unfortunately, the patient has severe small vessel disease and severe disease beyond the trifurcation which has been noted at the initial admission in March this year. Therefore, the outflow is limited. There is nothing to reconstruct or fix as far as the outflow and small vessel disease is concerned. PLAN: At this point, the patient has a Chopart amputation which is clearly not going to heal. This is foul smelling, infected, and the patient will require a minimum below-knee amputation, but in the future might require above-knee amputation. I have discussed with the patient and he would like to try below-knee amputation because, again, he is using his legs as a lever to move himself around, and it would be very hard for him to do that if he had above-knee amputation. In addition, it should be noted that the patient's right leg has not been attended as far as surgery is concerned and at this point, I would certainly avoid any procedures, unless there is limb threatening ischemia that developed there. In the meantime, the patient should have a correction of sodium. He would probably require significant diuresis because both legs are very swollen, and then we will proceed with [id number] amputation. Thank you very much for this referral. MD MEHNAZ Solorzano/balaji , 06:44 PM , 06:57 PM
[2018-06-22] MEDS: Piperacil/Tazo 4.5 GM Premix 4.5 GM/100 ML BAG IV.SIG SCH ×4 (03:27→20:55)
[2018-06-22] MEDS: Vancomycin Inj 1,000 MG in Sodium Chlor 0.9% Inj 250 ML IV.SIG SCH (06:29)
[2018-06-22] MEDS ORDERED: Pharmacy Ordered Lab Info OTHER ONE (06:45)
[2018-06-22] MEDS: Senna/Docusate Sodium 8.6/50 MG Tablet PO SCH ×2 (08:46→20:56)
--- NOTE | 2018-06-22 11:15 | P.PNIM ---
Subjective Interval history: Patient says he is feeling comfortable. Denies any chest pain shortness of breath. Denies nausea or vomiting. Denies constipation. Reports pain is under control. Physical Exam Vital signs: Vital Signs 06/21/18 12:00 06/21/18 15:32 06/21/18 17:49 Temperature 98.8 F 97.7 F Pulse Rate 87 79 Respiratory Rate 22 18 Blood Pressure 148/63 H 139/54 L Pulse Oximetry 86 L 98 98 06/21/18 20:00 06/22/18 00:00 06/22/18 00:15 Temperature 97.2 F L 97.3 F L Pulse Rate 88 81 Respiratory Rate 18 18 18 Blood Pressure 132/60 Pulse Oximetry 98 96 06/22/18 08:00 Temperature 97.7 F Pulse Rate 79 Respiratory Rate 21 Blood Pressure 135/60 Pulse Oximetry 94 L Intake & Output 06/21/18 06/22/18 06/22/18 18:59 06:59 18:59 Intake Total 2420 / 2420 450 / 450 225 / 225 Output Total 550 / 550 Balance 1870 / 1870 450 / 450 225 / 225 Intake: IV 1700 / 1700 450 / 450 225 / 225 NS Inj 1,000 ML @ 50 mls/hr IV. 1000 / 1000 CONT .Q20H ZULEMA Rx#:[id number] Zosyn 4.5 GM Premix 4.5 gm In 200 / 200 200 / 200 100 / 100 100 ml @ 200 mls/hr IV.SIG Q6H ZULEMA Rx#:[id number] Vancomycin Inj 1,000 MG In NS 500 / 500 250 / 250 125 / 125 Inj 250 ML @ 250 mls/hr IV.SIG Q8H ZULEMA Rx#:[id number] Oral 720 / 720 Output: Urine 550 / 550 Other: Date of Last Bowel Movement 06/21/18 # Bowel Movements 0 Narrative: GENERAL: Patient sitting up in wheelchair. Appears comfortable. SKIN: Warm and dry. HEAD: Normocephalic. EYES: No scleral icterus. No injection or drainage. NECK: Supple, trachea midline. No JVD or lymphadenopathy. CARDIOVASCULAR: Regular rate and rhythm without murmurs, gallops, or rubs. RESPIRATORY: Breath sounds equal bilaterally. No accessory muscle use. GASTROINTESTINAL: Abdomen soft, non-tender, nondistended. MUSCULOSKELETAL: No cyanosis. +2 bilateral lower extremity edema. Left lower extremity dressed with dressing clean dry and intact. BACK: Nontender without obvious deformity. No CVA tenderness. Results - Labs CBC & Chem 7: 06/20/18 05:12 06/21/18 06:38 Laboratory Results - last 24 hr 06/21/18 06/22/18 14:30 06:20 Vancomycin Trough 13.5 H 23.2 H Microbiology 06/19/18 14:38 Blood - Peripheral Aerobic Blood Culture - Preliminary No growth in 3 days 06/19/18 14:38 Blood - Peripheral Anaerobic Blood Culture - Preliminary No growth in 3 days 06/19/18 14:45 Blood - Peripheral Aerobic Blood Culture - Preliminary No growth in 3 days 06/19/18 14:45 Blood - Peripheral Anaerobic Blood Culture - Preliminary No growth in 3 days 06/19/18 14:45 Wound - Foot Gram Stain - Final 06/19/18 14:45 Wound - Foot Wound Culture - Preliminary S. aureus MRSA Group D Enterococcus 06/19/18 14:45 Wound - Buttock Gram Stain - Final 06/19/18 14:45 Wound - Buttock Wound Culture - Preliminary Proteus mirabilis Group D Enterococcus Assessment and Plan - Plan This patient is a 68-year-old male with above-mentioned past medical history severe peripheral vascular disease, status post partial amputation of the left foot.. The patient presented with worsening bilateral lower extremity cellulitis. Because of his symptoms he was sent to our emergency department for evaluation and care. //Bilateral lower extremity cellulitis and severe peripheral vascular disease. 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 Podiatry has been consulted to evaluate the patient further management recommendations regarding possible debridement and/or amputation. We will follow up with recommendations. = proteus on wound cultures. Continue IV antibiotics. Discussed with podiatry. Appreciate assistance. Will START antibiotics. = Vascular surgery consult pending. Appreciate podiatry and vascular surgery assistance. = 06/22. Appreciate vascular surgery consultation. For left BKA in the coming days. // Hyponatremia Patient has hyponatremia currently in the low 120s. After reviewing the patient 's recent admissions it appears that the patient usually had a sodium level below 130. He will be started on normal saline as the patient appears dry on physical examination. Patient's hyponatremia is possibly secondary due to dehydration as he has been having poor p.o. intake. Nephrology will be consulted to evaluate the patient for hyponatremia. = Sodium improving to 129 today. Nephrology following. Appreciate assistance. = 06/21. Sodium improving to 130. = 06/22. Will order BMP. //Chronic diastolic CHF = Continues on Coreg. -Does not appear to be in acute exacerbation, however does have marketed bilateral lower extremity edema. Will check BNP. Start Lasix IV twice daily. //Hypokalemia. Potassium 3.2. Replace and monitor. = 06/21. Potassium 3.6. Resolved after replacement. =06/22. Potassium pending. // History of an STEMI. Continue aspirin, statin, and beta-ermias. DVT prophy: No DVT prophylaxis for today as the patient will be evaluated by podiatry and may possibly require tomorrow. Discharge Planning: Pending podiatry, vascular surgery clearance May need IV antibiotics.
[2018-06-22 13:29] LABS: Anion Gap 11 meq/L (5-15); Blood Urea Nitrogen 3 mg/dL (7-18); Calcium 7.5 mg/dL (8.5-10.1); Carbon Dioxide 23.2 meq/L (21.0-32.0); Chloride 99 meq/L (98-107); Glomerular Filtration Rate Greater Than 89 mL/min (>89); Glucose,Random 79 mg/dL (74-106); Magnesium 1.7 mg/dL (1.5-2.5); Potassium 3.5 meq/L (3.5-5.1); Sodium 133 meq/L (136-145)
--- NOTE | 2018-06-22 14:46 | P.PNPOD ---
Subjective Interval history: Non healing Left chopart at [facility]. PVD Seen with nursing staff Physical Exam Vital signs: Vital Signs 06/21/18 15:32 06/21/18 17:49 06/21/18 20:00 Temperature 97.7 F 97.2 F L Pulse Rate 79 88 Respiratory Rate 18 18 Blood Pressure 139/54 L Pulse Oximetry 98 98 98 06/22/18 00:00 06/22/18 00:15 06/22/18 08:00 Temperature 97.3 F L 97.7 F Pulse Rate 81 79 Respiratory Rate 18 18 21 Blood Pressure 132/60 135/60 Pulse Oximetry 96 94 L 06/22/18 12:00 Temperature 97.2 F L Pulse Rate 67 Respiratory Rate 21 Blood Pressure 101/58 L Pulse Oximetry 91 L Intake & Output 06/21/18 06/22/18 06/22/18 18:59 06:59 18:59 Intake Total 2420 / 2420 450 / 450 225 / 225 Output Total 550 / 550 Balance 1870 / 1870 450 / 450 225 / 225 Intake: IV 1700 / 1700 450 / 450 225 / 225 NS Inj 1,000 ML @ 50 mls/hr IV. 1000 / 1000 CONT .Q20H [facility] Rx#:[id number] Zosyn 4.5 GM Premix 4.5 gm In 200 / 200 200 / 200 100 / 100 100 ml @ 200 mls/hr IV.SIG Q6H [facility] Rx#:[id number] Vancomycin Inj 1,000 MG In NS 500 / 500 250 / 250 125 / 125 Inj 250 ML @ 250 mls/hr IV.SIG Q8H [facility] Rx#:[id number] Oral 720 / 720 Output: Urine 550 / 550 Other: Date of Last Bowel Movement 06/21/18 # Bowel Movements 0 Medications and Allergies Active Medications: Active Medications Acetaminophen (Tylenol) 650 mg PO Q4H PRN PRN Reason: Temp > 100.4 Hydrocodone Bitart/Acetaminophen ([place] 7.5/325) 1 tab PO Q4H PRN PRN Reason: pain > 6 Last Admin: 06/22/18 10:09 Dose: 1 tab Hydrocodone Bitart/Acetaminophen ([place] 5/325) 1 tab PO Q4H PRN PRN Reason: pain 3 - 6 Al Hydroxide/Mg Hydroxide (Milk Of Magnesia Liq) 30 ml PO Q12H PRN PRN Reason: Mild Constipation Aspirin (Aspirin Chew) 81 mg PO DAILY [facility] Last Admin: 06/22/18 08:46 Dose: 81 mg Atorvastatin Calcium (Lipitor) 40 mg PO HS [facility] Last Admin: 06/21/18 22:34 Dose: 40 mg Bisacodyl (Dulcolax Supp) 10 mg RECTAL DAILY PRN PRN Reason: SEVERE CONSITIPATION Carvedilol (Coreg) 3.125 mg PO BID [facility] Last Admin: 06/22/18 08:46 Dose: 3.125 mg Furosemide (Lasix Inj) 40 mg IV.PUSH BID@0900,1800 [facility] Piperacillin/Tazobactam/Dextrose (Zosyn 4.5 Gm Premix) 4.5 gm in 100 mls @ 200 mls/hr IV.SIG Q6H [facility] Last Infusion: 06/22/18 09:17 Dose: Infused Vancomycin HCl 1,250 mg/ (Sodium Chloride) 262.5 mls @ 250 mls/hr IV.SIG Q12H [facility] Lactulose (Lactulose Liq) 30 ml PO DAILY PRN PRN Reason: SEVERE CONSITIPATION Miscellaneous Information ([facility] [place] Lab Info) 0 each OTHER ONCE ONE Stop: 06/24/18 09:46 Pharmacy Profile Note (Vancomycin Consult Pharmacy) 1 each OTHER UNSCH PRN PRN Reason: Pharmacy to dose Senna/Docusate Sodium (Felicia-Colace) 1 tab PO BID [facility] Last Admin: 06/22/18 08:46 Dose: 1 tab Sennosides (Senokot) 17.2 mg PO Q12H PRN PRN Reason: Moderate Constipation Allergies Allergy/AdvReac Type Severity Reaction Status Date / Time No Known Allergies Allergy Verified 04/06/18 17:04 Home Medications Medication Instructions Recorded Confirmed Type omeprazole 20 mg PO DAILY 04/01/18 04/06/18 History aspirin [Ye Aspirin] 325 mg PO DAILY 06/19/18 History carvedilol [Coreg] 3.125 mg PO BID 06/19/18 History gabapentin 06/19/18 History Results - Labs CBC & Chem 7: 06/20/18 05:12 06/22/18 12:39 Laboratory Results - last 24 hr 06/21/18 06/22/18 06/22/18 14:30 06:20 12:39 Sodium Potassium Chloride Carbon Dioxide Anion Gap BUN Creatinine Estimated GFR Random Glucose Calcium Magnesium B-Natriuretic Peptide 321 H Vancomycin Trough 13.5 H 23.2 H 06/22/18 12:39 Sodium 133 L Potassium 3.5 Chloride 99 Carbon Dioxide 23.2 Anion Gap 11 BUN 3 L Creatinine 0.45 L Estimated GFR Greater than 89 Random Glucose 79 Calcium 7.5 L Magnesium 1.7 B-Natriuretic Peptide Vancomycin Trough Microbiology 06/19/18 14:38 Blood - Peripheral Aerobic Blood Culture - Preliminary No growth in 3 days 06/19/18 14:38 Blood - Peripheral Anaerobic Blood Culture - Preliminary No growth in 3 days 06/19/18 14:45 Blood - Peripheral Aerobic Blood Culture - Preliminary No growth in 3 days 06/19/18 14:45 Blood - Peripheral Anaerobic Blood Culture - Preliminary No growth in 3 days 06/19/18 14:45 Wound - Foot Gram Stain - Final 06/19/18 14:45 Wound - Foot Wound Culture - Preliminary S. aureus MRSA Group D Enterococcus 06/19/18 14:45 Wound - Buttock Gram Stain - Final 06/19/18 14:45 Wound - Buttock Wound Culture - Preliminary Proteus mirabilis Group D Enterococcus Assessment and Plan - Assessment (1) Cellulitis Code(s): L03.90 - Cellulitis, unspecified Status: Acute (2) Peripheral vascular disease Code(s): I73.9 - Peripheral vascular disease, unspecified Status: Acute - Plan Pending Left BKA Podiatry will sign off. (1) Cellulitis Qualifiers: Site of cellulitis: other site Qualified Code(s): L03.818 - Cellulitis of other sites
--- NOTE | 2018-06-22 20:54 | P.PNVS ---
Subjective Subjective/Hospital Course: Patient seen and full consult dictated. Thanks J 06/22/2018 At this point, left femoropopliteal bypass is widely patent with excellent signal. Unfortunately, the patient has severe small vessel disease and severe disease beyond the trifurcation which has been noted at the initial admission in March this year. Therefore, the outflow is limited. There is nothing to reconstruct or fix as far as the outflow and small vessel disease is concerned. 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 This is foul smelling, infected, and the patient will require a minimum below-knee amputation, but in the future might require above-knee amputation. I have discussed with the patient and he would like to try below-knee amputation because, again, he is using his legs as a lever to move himself around, and it would be very hard for him to do that if he had above-knee amputation. The fact that the femoral-popliteal graft is patent has no bearing on the fact that patient has small vessel disease in his foot and this is an unreconstructable situation. Nonetheless with patent graft patient will at least end up with below-knee amputation rather than above-knee. Therefore I agree with Dr. Gordillo and I strongly recommend left below-knee amputation at this time in order to prevent further systemic symptoms send potential complications. Patient scheduled for surgery tomorrow and have discussed this with him in detail Objective Vital Signs / I&O: Vital Signs 06/22/18 00:00 06/22/18 00:15 06/22/18 08:00 Temperature 97.3 F L 97.7 F Pulse Rate 81 79 Respiratory Rate 18 18 21 Blood Pressure 132/60 135/60 Pulse Oximetry 96 94 L 06/22/18 12:00 06/22/18 16:00 06/22/18 20:00 Temperature 97.2 F L 97.4 F L 97.1 F L Pulse Rate 67 75 91 H Respiratory Rate 21 19 17 Blood Pressure 101/58 L 122/58 L 121/58 L Pulse Oximetry 91 L 96 98 Intake & Output 06/22/18 06/22/18 06/23/18 06:59 18:59 06:59 Intake Total 450 / 450 1025 / 1025 Output Total 750 / 750 Balance 450 / 450 275 / 275 Intake: IV 450 / 450 325 / 325 Zosyn 4.5 GM Premix 4.5 gm In 200 / 200 200 / 200 100 ml @ 200 mls/hr IV.SIG Q6H [facility] Rx#:[id number] Vancomycin Inj 1,000 MG In NS 250 / 250 125 / 125 Inj 250 ML @ 250 mls/hr IV.SIG Q8H [facility] Rx#:[id number] Oral 700 / 700 Output: Urine 750 / 750 Other: Date of Last Bowel Movement 06/21/18 Laboratory Results - last 24 hr 06/22/18 06/22/18 06/22/18 06:20 12:39 12:39 Sodium 133 L Potassium 3.5 Chloride 99 Carbon Dioxide 23.2 Anion Gap 11 BUN 3 L Creatinine 0.45 L Estimated GFR Greater than 89 Random Glucose 79 Calcium 7.5 L Magnesium 1.7 B-Natriuretic Peptide 321 H Vancomycin Trough 23.2 H Microbiology 06/19/18 14:45 Gram Stain - Final Wound - Foot Wound Culture - Final S. aureus MRSA Enterococcus faecalis 06/19/18 14:45 Gram Stain - Final Wound - Buttock Wound Culture - Final Proteus mirabilis Enterococcus faecium 06/19/18 14:38 Aerobic Blood Culture - Preliminary Blood - Peripheral No growth in 3 days Anaerobic Blood Culture - Preliminary No growth in 3 days 06/19/18 14:45 Aerobic Blood Culture - Preliminary Blood - Peripheral No growth in 3 days Anaerobic Blood Culture - Preliminary No growth in 3 days
[2018-06-22] MEDS: Vancomycin Inj 1,250 MG in Sodium Chlor 0.9% Inj 250 ML IV.SIG SCH ×2 (20:55→22:04)
[2018-06-23] MEDS ORDERED: Chlorhexidine Gluconate 2% 1 Pack (2 Cloths) TOPICAL ONE (02:11)
[2018-06-23] MEDS ORDERED: Sodium Chlor 0.9% Inj 500 ML IV.SIG SCH (03:00)
[2018-06-23] MEDS: Piperacil/Tazo 4.5 GM Premix 4.5 GM/100 ML BAG IV.SIG SCH ×5 (05:03→21:47)
[2018-06-23 06:28] LABS: Baso # (Auto) 0.1 th/mm3 (0.0-0.2); Eos # (Auto) 0.2 th/mm3 (0.0-0.4); Eos % (Auto) 2.3 % (0.0-4.0); Hematocrit 35.2 % (39.0-51.0); Hemoglobin 11.9 gm/dL (13.0-17.0); Lymph # (Auto) 1.5 th/mm3 (1.0-4.8); Lymph % (Auto) 14.6 % (9.0-44.0); Mean Corpuscular HGB Conc 33.9 % (32.0-36.0); Mean Corpuscular Hemoglobin 29.9 pg (27.0-34.0); Mean Platelet Volume 7.1 fL (7.0-11.0); Mono # (Auto) 1.1 th/mm3 (0.0-0.9); Mono % (Auto) 10.7 % (0.0-8.0); Neut # (Auto) 7.3 th/mm3 (1.8-7.7); Neut % (Auto) 71.4 % (16.0-70.0); Platelet Count 540 th/mm3 (150-450); Red Cell Distribution Width 19.3 % (11.6-17.2); White Blood Count 10.2 th/mm3 (4.0-11.0)
[2018-06-23 06:53] LABS: Albumin 2.5 g/dL (3.4-5.0); Anion Gap 12 meq/L (5-15); Blood Urea Nitrogen 4 mg/dL (7-18); Calcium 7.9 mg/dL (8.5-10.1); Carbon Dioxide 25.3 meq/L (21.0-32.0); Chloride 95 meq/L (98-107); Glomerular Filtration Rate Greater Than 89 mL/min (>89); Glucose,Random 81 mg/dL (74-106); Magnesium 1.5 mg/dL (1.5-2.5); Phosphorus 3.6 mg/dL (2.5-4.9); Potassium 3.5 meq/L (3.5-5.1); Sodium 132 meq/L (136-145)
[2018-06-23 06:56] LABS: INR 1.1 Ratio; Prothrombin Time 11.1 sec (9.8-11.6)
[2018-06-23] MEDS: Senna/Docusate Sodium 8.6/50 MG Tablet PO SCH ×2 (09:07→21:48)
[2018-06-23] MEDS ORDERED: Neostigmine Inj 5 MG/5 ML Syringe IV.PUSH ONE (11:30)
[2018-06-23] MEDS ORDERED: Lidocaine PF 1% Inj 5 ML Syringe OTHER ONE (11:30)
[2018-06-23] MEDS ORDERED: Glycopyrrolate Inj 1 MG/5 ML Syringe IV.PUSH ONE (11:30)
[2018-06-23] MEDS: Vancomycin Inj 1,250 MG in Sodium Chlor 0.9% Inj 250 ML IV.SIG SCH ×2 (11:55→21:48)
[2018-06-23] MEDS ORDERED: fentaNYL Citrate Inj 100 MCG/2 ML Ampul ONE (12:57)
[2018-06-23] MEDS ORDERED: *morphine SULFATE 4 MG/ML PERIprocedure ONLY ONE (13:11)
[2018-06-23] MEDS ORDERED: HYDROmorphone PF Inj 2 MG/ML Vial ONE (13:29)
[2018-06-23] MEDS ORDERED: Morphine Inj 4 MG/ML Vial ONE (13:30)
--- NOTE | 2018-06-23 16:17 | MP ---
cc: Bertram Luciano MD DATE OF OPERATION: 06/23/2018 PREOPERATIVE DIAGNOSIS: Gangrene of the left foot with peripheral vascular disease. POSTOPERATIVE DIAGNOSIS: Gangrene of the left foot with peripheral vascular disease. OPERATIVE PROCEDURE: Left below-knee amputation. SURGEON: Bertram Luciano MD ANESTHESIA: General. ESTIMATED BLOOD LOSS: 100 mL DESCRIPTION OF PROCEDURE: The patient was prepped and draped in the usual fashion and the incision made anteriorly and carried down laterally and then posterior flap created with a 10 blade. The incision was now deepened with cautery. The extensor muscle groups were transected, anterior tibial artery and vein ligated and divided and then tibia and fibula were freed up. The periosteum is elevated on the tibia and fibula about an inch and a half proximal to the original skin incision and then both bones were transected with an oscillating saw. Finally, the amputation knife was used to create the posterior flap and amputate the extremity. Meticulous hemostasis was obtained with some 0 Vicryl stick ties and cautery. The tourniquet was released after only about 3 minutes. The area irrigated with copious amounts of saline. Meticulous hemostasis once more achieved and then the flap closed using 0 Vicryl for fascia at the fascial stitches and skin was closed with 2-0 Prolene interrupted stitches. The patient tolerated the procedure well. Dressing applied. Bertram Luciano MD SJ/ct , 02:52 PM , 02:57 PM
--- NOTE | 2018-06-23 16:35 | P.PNIM ---
Subjective Interval history: Patient seen this afternoon following left below the knee amputation. Patient asked how he is feeling, and says "how do you think I feel". Patient is alert, appears comfortable. Physical Exam Vital signs: Vital Signs 06/22/18 20:00 06/22/18 22:04 06/23/18 00:42 Temperature 97.1 F L 97.7 F Pulse Rate 91 H 80 Respiratory Rate 20 20 17 Blood Pressure 121/58 L 119/59 L Pulse Oximetry 98 92 L 06/23/18 08:00 06/23/18 12:55 06/23/18 13:00 Temperature 97.9 F 97.8 F Pulse Rate 84 81 80 Respiratory Rate 18 16 16 Blood Pressure 129/65 133/62 135/62 Pulse Oximetry 92 L 100 93 L 06/23/18 13:05 06/23/18 13:15 06/23/18 13:30 Temperature Pulse Rate 75 75 Respiratory Rate 16 16 Blood Pressure 129/56 L 140/66 Pulse Oximetry 94 L 93 L 92 L 06/23/18 13:45 06/23/18 13:50 06/23/18 14:18 Temperature 98.2 F Pulse Rate 75 79 Respiratory Rate 18 18 Blood Pressure 143/68 H 143/68 H Pulse Oximetry 91 L 91 L 93 L 06/23/18 14:24 06/23/18 16:00 Temperature 97.9 F Pulse Rate 98 H Respiratory Rate 18 Blood Pressure 145/74 H Pulse Oximetry 93 L 90 L Intake & Output 06/22/18 06/23/18 06/23/18 18:59 06:59 18:59 Intake Total 1025 / 1025 462.5 / 462.5 362.5 / 362.5 Output Total 750 / 750 700 / 700 Balance 275 / 275 -237.5 / -237.5 362.5 / 362.5 Weight 73 kg Intake: IV 325 / 325 462.5 / 462.5 362.5 / 362.5 Zosyn 4.5 GM Premix 4.5 gm In 200 / 200 200 / 200 100 / 100 100 ml @ 200 mls/hr IV.SIG Q6H [facility] Rx#:[id number] Vancomycin Inj 1,000 MG In NS 125 / 125 Inj 250 ML @ 250 mls/hr IV.SIG Q8H [facility] Rx#:[id number] Vancomycin Inj 1,250 MG In NS 262.5 / 262.5 262.5 / 262.5 Inj 250 ML @ 250 mls/hr IV.SIG Q12H [facility] Rx#:[id number] Oral 700 / 700 Output: Urine 750 / 750 700 / 700 Other: # Voids 3 Date of Last Bowel Movement 06/22/18 Narrative: GENERAL: Patient sitting up in bed. Appears comfortable. SKIN: Warm and dry. HEAD: Normocephalic. EYES: No scleral icterus. No injection or drainage. NECK: Supple, trachea midline. No JVD or lymphadenopathy. CARDIOVASCULAR: Regular rate and rhythm without murmurs, gallops, or rubs. RESPIRATORY: Breath sounds equal bilaterally. No accessory muscle use. GASTROINTESTINAL: Abdomen soft, non-tender, nondistended. MUSCULOSKELETAL: No cyanosis. +2 bilateral lower extremity edema. Left lower BKA dressing intact. BACK: Nontender without obvious deformity. No CVA tenderness. - Urinary Catheter Management Indwelling Urethral Catheter Cath placed during this visit: yes Reason for continuing: Hourly intake/output Insertion date: 06/23/18 Results - Labs CBC & Chem 7: 06/23/18 05:16 06/23/18 05:16 Laboratory Results - last 24 hr 06/22/18 06/23/18 06/23/18 21:39 05:16 05:16 WBC 10.2 RBC 4.00 L Hgb 11.9 L Hct 35.2 L MCV 88.0 MCH 29.9 MCHC 33.9 RDW 19.3 H Plt Count 540 H MPV 7.1 Neut % (Auto) 71.4 H Lymph % (Auto) 14.6 [place] % (Auto) 10.7 H Eos % (Auto) 2.3 Baso % (Auto) 1.0 Neut # (Auto) 7.3 Lymph # (Auto) 1.5 [place] # (Auto) 1.1 H Eos # (Auto) 0.2 Baso # (Auto) 0.1 WBC Differential . Differential Comment Auto diff final PT INR Sodium 132 L Potassium 3.5 Chloride 95 L Carbon Dioxide 25.3 Anion Gap 12 BUN 4 L Creatinine 0.58 L Estimated GFR Greater than 89 Random Glucose 81 Calcium 7.9 L Phosphorus 3.6 Magnesium 1.5 Albumin 2.5 L Blood Type A Positive Antibody Screen Negative 06/23/18 05:16 WBC RBC Hgb Hct MCV MCH MCHC RDW Plt Count MPV Neut % (Auto) Lymph % (Auto) [place] % (Auto) Eos % (Auto) Baso % (Auto) Neut # (Auto) Lymph # (Auto) [place] # (Auto) Eos # (Auto) Baso # (Auto) WBC Differential Differential Comment PT 11.1 INR 1.1 Sodium Potassium Chloride Carbon Dioxide Anion Gap BUN Creatinine Estimated GFR Random Glucose Calcium Phosphorus Magnesium Albumin Blood Type Antibody Screen Microbiology 06/19/18 14:38 Blood - Peripheral Aerobic Blood Culture - Preliminary No growth in 4 days 06/19/18 14:38 Blood - Peripheral Anaerobic Blood Culture - Preliminary No growth in 4 days 06/19/18 14:45 Blood - Peripheral Aerobic Blood Culture - Preliminary No growth in 4 days 06/19/18 14:45 Blood - Peripheral Anaerobic Blood Culture - Preliminary No growth in 4 days 06/19/18 14:45 Wound - Foot Gram Stain - Final 06/19/18 14:45 Wound - Foot Wound Culture - Final S. aureus MRSA Enterococcus faecalis 06/19/18 14:45 Wound - Buttock Gram Stain - Final 06/19/18 14:45 Wound - Buttock Wound Culture - Final Proteus mirabilis Enterococcus faecium Assessment and Plan - Plan This patient is a 68-year-old male with above-mentioned past medical history severe peripheral vascular disease, status post partial amputation of the left foot.. The patient presented with worsening bilateral lower extremity cellulitis. Because of his symptoms he was sent to our emergency department for evaluation and care. //Bilateral lower extremity cellulitis and severe peripheral vascular disease. 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 Podiatry has been consulted to evaluate the patient further management recommendations regarding possible debridement and/or amputation. We will follow up with recommendations. = proteus on wound cultures. Continue IV antibiotics. Discussed with podiatry. Appreciate assistance. Will START antibiotics. = Vascular surgery consult pending. Appreciate podiatry and vascular surgery assistance. = 06/22. Appreciate vascular surgery consultation. For left BKA in the coming days. = 06/23. BKA performed on the left by vascular surgery. Appreciate assistance. // Hyponatremia Patient has hyponatremia currently in the low 120s. After reviewing the patient 's recent admissions it appears that the patient usually had a sodium level below 130. He will be started on normal saline as the patient appears dry on physical examination. Patient's hyponatremia is possibly secondary due to dehydration as he has been having poor p.o. intake. Nephrology will be consulted to evaluate the patient for hyponatremia. = Sodium improving to 129 today. Nephrology following. Appreciate assistance. = 06/21. Sodium improving to 130. = 06/22. Will order BMP. //Chronic diastolic CHF = Continues on Coreg. -Does not appear to be in acute exacerbation, however does have marketed bilateral lower extremity edema. Will check BNP. Start Lasix IV twice daily. = BNP in the 300s. Follow potassium. //Hypokalemia. Potassium 3.2. Replace and monitor. = 06/21. Potassium 3.6. Resolved after replacement. =06/22. Potassium pending. // History of an STEMI. Continue aspirin, statin, and beta-ermias. DVT prophy: No DVT prophylaxis for today as the patient will be evaluated by podiatry and may possibly require tomorrow. Discharge Planning: Pending vascular surgery clearance PT consult ordered and pending.
[2018-06-24] MEDS: Piperacil/Tazo 4.5 GM Premix 4.5 GM/100 ML BAG IV.SIG SCH ×4 (03:00→20:29)
[2018-06-24] MEDS: Senna/Docusate Sodium 8.6/50 MG Tablet PO SCH ×2 (09:03→20:32)
[2018-06-24] MEDS ORDERED: Pharmacy Ordered Lab Info OTHER ONE ×2 (09:45→21:45)
--- NOTE | 2018-06-24 10:26 | P.PNIM ---
Subjective Interval history: Patient reports the pain is under control. Denies any chest pain or shortness of breath. Appears to sit up in chair instead of lying down. Physical Exam Vital signs: Vital Signs 06/23/18 12:55 06/23/18 13:00 06/23/18 13:05 Temperature 97.8 F Pulse Rate 81 80 Respiratory Rate 16 16 Blood Pressure 133/62 135/62 Pulse Oximetry 100 93 L 94 L 06/23/18 13:15 06/23/18 13:30 06/23/18 13:45 Temperature Pulse Rate 75 75 75 Respiratory Rate 16 16 18 Blood Pressure 129/56 L 140/66 143/68 H Pulse Oximetry 93 L 92 L 91 L 06/23/18 13:50 06/23/18 14:18 06/23/18 14:24 Temperature 98.2 F Pulse Rate 79 Respiratory Rate 18 Blood Pressure 143/68 H Pulse Oximetry 91 L 93 L 93 L 06/23/18 16:00 06/23/18 16:37 06/23/18 20:00 Temperature 97.9 F 97.2 F L Pulse Rate 98 H 99 H Respiratory Rate 18 18 18 Blood Pressure 145/74 H 134/65 Pulse Oximetry 90 L 92 L 06/23/18 23:15 06/24/18 00:00 06/24/18 04:00 Temperature 97.6 F 97.4 F L Pulse Rate 101 H 94 H Respiratory Rate 20 17 14 Blood Pressure 136/63 122/56 L Pulse Oximetry 92 L 96 06/24/18 08:00 Temperature 97.5 F L Pulse Rate 95 H Respiratory Rate 18 Blood Pressure 106/55 L Pulse Oximetry 93 L Intake & Output 06/23/18 06/24/18 06/24/18 18:59 06:59 18:59 Intake Total 1322.5 / 1322.5 1262.5 / 1262.5 100 / 100 Balance 1322.5 / 1322.5 1262.5 / 1262.5 100 / 100 Weight 73.4 kg Intake: IV 462.5 / 462.5 462.5 / 462.5 100 / 100 Zosyn 4.5 GM Premix 4.5 gm In 200 / 200 200 / 200 100 / 100 100 ml @ 200 mls/hr IV.SIG Q6H [facility] Rx#:[id number] Vancomycin Inj 1,250 MG In NS 262.5 / 262.5 262.5 / 262.5 Inj 250 ML @ 250 mls/hr IV.SIG Q12H [facility] Rx#:[id number] Oral 860 / 860 800 / 800 Other: # Voids 500 3 Date of Last Bowel Movement 06/24/18 Narrative: GENERAL: Patient sitting up in bed. Appears comfortable. SKIN: Warm and dry. HEAD: Normocephalic. EYES: No scleral icterus. No injection or drainage. NECK: Supple, trachea midline. No JVD or lymphadenopathy. CARDIOVASCULAR: Regular rate and rhythm without murmurs, gallops, or rubs. RESPIRATORY: Breath sounds equal bilaterally. No accessory muscle use. GASTROINTESTINAL: Abdomen soft, non-tender, nondistended. MUSCULOSKELETAL: No cyanosis. +2 RLE edema with some weeping. sitting up in chair.Left lower BKA dressing intact. BACK: Nontender without obvious deformity. No CVA tenderness. - Urinary Catheter Management Indwelling Urethral Catheter Cath placed during this visit: yes Reason for continuing: Hourly intake/output Insertion date: 06/23/18 Results - Labs CBC & Chem 7: 06/23/18 05:16 06/23/18 05:16 Microbiology 06/19/18 14:38 Blood - Peripheral Aerobic Blood Culture - Preliminary No growth in 4 days 06/19/18 14:38 Blood - Peripheral Anaerobic Blood Culture - Preliminary No growth in 4 days 06/19/18 14:45 Blood - Peripheral Aerobic Blood Culture - Preliminary No growth in 4 days 06/19/18 14:45 Blood - Peripheral Anaerobic Blood Culture - Preliminary No growth in 4 days Assessment and Plan - Plan This patient is a 68-year-old male with above-mentioned past medical history severe peripheral vascular disease, status post partial amputation of the left foot.. The patient presented with worsening bilateral lower extremity cellulitis. Because of his symptoms he was sent to our emergency department for evaluation and care. //Bilateral lower extremity cellulitis and severe peripheral vascular disease. 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 Podiatry has been consulted to evaluate the patient further management recommendations regarding possible debridement and/or amputation. We will follow up with recommendations. = proteus on wound cultures. Continue IV antibiotics. Discussed with podiatry. Appreciate assistance. Will START antibiotics. = Vascular surgery consult pending. Appreciate podiatry and vascular surgery assistance. = 06/22. Appreciate vascular surgery consultation. For left BKA in the coming days. = 06/23. BKA performed on the left by vascular surgery. Continue IV antibiotics for right lower extremity cellulitis which appears much improved. Can go on p.o abx at discharge. Appreciate assistance. // Hyponatremia Patient has hyponatremia currently in the low 120s. After reviewing the patient 's recent admissions it appears that the patient usually had a sodium level below 130. He will be started on normal saline as the patient appears dry on physical examination. Patient's hyponatremia is possibly secondary due to dehydration as he has been having poor p.o. intake. Nephrology will be consulted to evaluate the patient for hyponatremia. = Sodium improving to 129 today. Nephrology following. Appreciate assistance. = 06/21. Sodium improving to 130. = 06/22. Will order BMP. = 06/24. Recheck BMP tomorrow. //Chronic diastolic CHF = Continues on Coreg. -Does not appear to be in acute exacerbation, however does have marketed bilateral lower extremity edema. Will check BNP. Start Lasix IV twice daily. = BNP in the 300s. Follow potassium. = 06/24. Recheck potassium tomorrow. Will start on fluid restrictions. //Right lower extremity edema. Secondary to venous insufficiency. Does not appear to have CHF exacerbation. Will start Sawyer wraps. Advised patient to keep leg elevated as much as possible. Unfortunately he likes to sit in mobility chair. //Hypokalemia. Potassium 3.2. Replace and monitor. = Resolved after replacement // History of an STEMI. Continue aspirin, statin, and beta-ermias. DVT prophy: No DVT prophylaxis for today as the patient will be evaluated by podiatry and may possibly require tomorrow. Discharge Planning: Pending vascular surgery clearance PT consult ordered and pending.
[2018-06-24] MEDS: Vancomycin Inj 1,250 MG in Sodium Chlor 0.9% Inj 250 ML IV.SIG SCH ×2 (12:19→22:07)
--- NOTE | 2018-06-24 17:01 | P.PNVS ---
Subjective Subjective/Hospital Course: Patient seen and full consult dictated. Thanks J 06/22/2018 At this point, left femoropopliteal bypass is widely patent with excellent signal. Unfortunately, the patient has severe small vessel disease and severe disease beyond the trifurcation which has been noted at the initial admission in March this year. Therefore, the outflow is limited. There is nothing to reconstruct or fix as far as the outflow and small vessel disease is concerned. 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 This is foul smelling, infected, and the patient will require a minimum below-knee amputation, but in the future might require above-knee amputation. I have discussed with the patient and he would like to try below-knee amputation because, again, he is using his legs as a lever to move himself around, and it would be very hard for him to do that if he had above-knee amputation. The fact that the femoral-popliteal graft is patent has no bearing on the fact that patient has small vessel disease in his foot and this is an unreconstructable situation. Nonetheless with patent graft patient will at least end up with below-knee amputation rather than above-knee. Therefore I agree with Dr. Gordillo and I strongly recommend left below-knee amputation at this time in order to prevent further systemic symptoms send potential complications. Patient scheduled for surgery tomorrow and have discussed this with him in detail 06/24/2018 Status post left BKA. Dressing intact and clean We will leave the dressing on until Tuesday Nothing to add to care at this time Objective Vital Signs / I&O: Vital Signs 06/23/18 20:00 06/23/18 23:15 06/24/18 00:00 Temperature 97.2 F L 97.6 F Pulse Rate 99 H 101 H Respiratory Rate 18 20 17 Blood Pressure 134/65 136/63 Pulse Oximetry 92 L 92 L 06/24/18 04:00 06/24/18 08:00 06/24/18 12:00 Temperature 97.4 F L 97.5 F L 97.4 F L Pulse Rate 94 H 95 H 84 Respiratory Rate 14 18 18 Blood Pressure 122/56 L 106/55 L 103/55 L Pulse Oximetry 96 93 L 93 L Intake & Output 06/23/18 06/24/18 06/24/18 18:59 06:59 18:59 Intake Total 1322.5 / 1322.5 1262.5 / 1262.5 362.5 / 362.5 Balance 1322.5 / 1322.5 1262.5 / 1262.5 362.5 / 362.5 Weight 73.4 kg Intake: IV 462.5 / 462.5 462.5 / 462.5 362.5 / 362.5 Zosyn 4.5 GM Premix 4.5 gm In 200 / 200 200 / 200 100 / 100 100 ml @ 200 mls/hr IV.SIG Q6H ZULEMA Rx#:[id number] Vancomycin Inj 1,250 MG In NS 262.5 / 262.5 262.5 / 262.5 262.5 / 262.5 Inj 250 ML @ 250 mls/hr IV.SIG Q12H ZULEMA Rx#:[id number] Oral 860 / 860 800 / 800 Other: # Voids 500 3 Date of Last Bowel Movement 06/24/18 Laboratory Results - last 24 hr 06/24/18 11:00 Vancomycin Trough 14.2 H Microbiology 06/19/18 14:38 Aerobic Blood Culture - Final Blood - Peripheral No growth in 5 days Anaerobic Blood Culture - Final No growth in 5 days 06/19/18 14:45 Aerobic Blood Culture - Final Blood - Peripheral No growth in 5 days Anaerobic Blood Culture - Final No growth in 5 days
[2018-06-25] MEDS: Piperacil/Tazo 4.5 GM Premix 4.5 GM/100 ML BAG IV.SIG SCH ×4 (02:53→22:04)
[2018-06-25 05:53] LABS: Albumin 2.1 g/dL (3.4-5.0); Anion Gap 10 meq/L (5-15); Blood Urea Nitrogen 7 mg/dL (7-18); Calcium 7.7 mg/dL (8.5-10.1); Chloride 92 meq/L (98-107); Glomerular Filtration Rate Greater Than 89 mL/min (>89); Glucose,Random 85 mg/dL (74-106); Magnesium 1.7 mg/dL (1.5-2.5); Sodium 133 meq/L (136-145)
[2018-06-25 05:56] LABS: Potassium 3.3 meq/L (3.5-5.1)
[2018-06-25 06:28] LABS: Baso # (Auto) 0.1 th/mm3 (0.0-0.2); Baso % (Auto) 0.8 % (0.0-2.0); Eos # (Auto) 0.2 th/mm3 (0.0-0.4); Eos % (Auto) 1.7 % (0.0-4.0); Hematocrit 33.5 % (39.0-51.0); Hemoglobin 11.3 gm/dL (13.0-17.0); Lymph # (Auto) 1.5 th/mm3 (1.0-4.8); Lymph % (Auto) 17.2 % (9.0-44.0); Mean Corpuscular HGB Conc 33.7 % (32.0-36.0); Mean Corpuscular Hemoglobin 29.5 pg (27.0-34.0); Mean Corpuscular Volume 87.6 fL (80.0-100.0); Mean Platelet Volume 6.9 fL (7.0-11.0); Mono # (Auto) 1.3 th/mm3 (0.0-0.9); Mono % (Auto) 14.7 % (0.0-8.0); Neut # (Auto) 5.8 th/mm3 (1.8-7.7); Neut % (Auto) 65.6 % (16.0-70.0); Platelet Count 431 th/mm3 (150-450); Red Blood Count 3.82 mil/mm3 (4.50-5.90); Red Cell Distribution Width 19.7 % (11.6-17.2); White Blood Count 8.8 th/mm3 (4.0-11.0)
[2018-06-25] MEDS: Senna/Docusate Sodium 8.6/50 MG Tablet PO SCH ×2 (08:25→22:50)
[2018-06-25] MEDS: Vancomycin Inj 1,250 MG in Sodium Chlor 0.9% Inj 250 ML IV.SIG SCH ×2 (10:00→22:41)
--- NOTE | 2018-06-25 10:53 | P.PN ---
Subjective Interval history: This is a pleasant 68 y/o Male with severe peripheral Artery disease, paraplegia and is wheelchair-bound, status post stem pop bypass and partial left foot amputation. He also has chronic hyponatremia. followed Vascular compensation specialist Notes, status post Left femoropopliteal bypass is widely patent with excellent signal Unfortunately the patient has severe small vessel disease and severe disease beyond the trifurcation which has been noted at the initial admission in March this year, the outflow is limited There is nothing to reconstruct or fix as far as the outflow and small vessel disease is concerned. 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 This is foul smelling, infected, and the patient will require a minimum below-knee amputation, but in the future might require above-knee amputation. I have discussed with the patient and he would like to try below-knee amputation because, again, he is using his legs as a lever to move himself around, and it would be very hard, he is in status post left BKA, left dressing until tomorrow, as per Vascular surgery has Anasarca and retained fluid, may be discharged at any time now. Physical Exam Vital signs: Vital Signs 06/24/18 12:00 06/24/18 16:00 06/24/18 20:00 Temperature 97.4 F L 97.4 F L 97.3 F L Pulse Rate 84 85 84 Respiratory Rate 18 18 17 Blood Pressure 103/55 L 95/57 L 101/60 Pulse Oximetry 93 L 93 L 94 L 06/25/18 00:00 06/25/18 08:00 Temperature 97.2 F L 97.8 F Pulse Rate 83 86 Respiratory Rate 17 18 Blood Pressure 106/61 122/63 Pulse Oximetry 94 L 94 L Intake & Output 06/24/18 06/25/18 06/25/18 18:59 06:59 18:59 Intake Total 2262.5 / 2262.5 1404 / 1404 100 / 100 Output Total 600 / 600 400 / 400 Balance 1662.5 / 1662.5 1004 / 1004 100 / 100 Weight 74 kg Intake: IV 462.5 / 462.5 924 / 924 100 / 100 Zosyn 4.5 GM Premix 4.5 gm In 200 / 200 200 / 200 100 / 100 100 ml @ 200 mls/hr IV.SIG Q6H ZULEMA Rx#:[id number] Vancomycin Inj 1,250 MG In NS 262.5 / 262.5 524 / 524 Inj 250 ML @ 250 mls/hr IV.SIG Q12H ZULEMA Rx#:[id number] Oral 1800 / 1800 480 / 480 Output: Urine 600 / 600 400 / 400 Narrative: GENERAL: Patient sitting up in bed. Appears comfortable. SKIN: Warm and dry. HEAD: Normocephalic. EYES: No scleral icterus. No injection or drainage. NECK: Supple, trachea midline. No JVD or lymphadenopathy. CARDIOVASCULAR: Regular rate and rhythm without murmurs, gallops, or rubs. RESPIRATORY: Breath sounds equal bilaterally. No accessory muscle use. GASTROINTESTINAL: Abdomen soft, non-tender, nondistended. MUSCULOSKELETAL: No cyanosis. +2 RLE edema with some weeping. sitting up in chair.Left lower BKA dressing intact. BACK: Nontender without obvious deformity. No CVA tenderness. - Urinary Catheter Management Indwelling Urethral Catheter Cath placed during this visit: yes Reason for continuing: Hourly intake/output Insertion date: 06/23/18 Results - Labs CBC & Chem 7: 06/25/18 05:04 06/26/18 05:43 Laboratory Results - last 24 hr 06/24/18 06/25/18 06/25/18 11:00 05:04 05:04 WBC 8.8 RBC 3.82 L Hgb 11.3 L Hct 33.5 L MCV 87.6 MCH 29.5 MCHC 33.7 RDW 19.7 H Plt Count 431 MPV 6.9 L Neut % (Auto) 65.6 Lymph % (Auto) 17.2 [place] % (Auto) 14.7 H Eos % (Auto) 1.7 Baso % (Auto) 0.8 Neut # (Auto) 5.8 Lymph # (Auto) 1.5 [place] # (Auto) 1.3 H Eos # (Auto) 0.2 Baso # (Auto) 0.1 WBC Differential . Differential Comment Auto diff final Sodium 133 L Potassium 3.3 L Chloride 92 L Carbon Dioxide 31.0 Anion Gap 10 BUN 7 Creatinine 0.58 L Estimated GFR Greater than 89 Random Glucose 85 Calcium 7.7 L Phosphorus 4.0 Magnesium 1.7 Albumin 2.1 L Vancomycin Trough 14.2 H Microbiology 06/19/18 14:38 Blood - Peripheral Aerobic Blood Culture - Final No growth in 5 days 06/19/18 14:38 Blood - Peripheral Anaerobic Blood Culture - Final No growth in 5 days 06/19/18 14:45 Blood - Peripheral Aerobic Blood Culture - Final No growth in 5 days 06/19/18 14:45 Blood - Peripheral Anaerobic Blood Culture - Final No growth in 5 days Assessment and Plan - Plan This patient is a 68-year-old male with above-mentioned past medical history severe peripheral vascular disease, status post partial amputation of the left foot.. The patient presented with worsening bilateral lower extremity cellulitis. Because of his symptoms he was sent to our emergency department for evaluation and care. //Bilateral lower extremity cellulitis and severe peripheral vascular disease. 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 Podiatry has been consulted to evaluate the patient further management recommendations regarding possible debridement and/or amputation. We will follow up with recommendations. = proteus on wound cultures. Continue IV antibiotics. Discussed with podiatry. Appreciate assistance. Will START antibiotics. = Vascular surgery consult pending. Status post Left BKA will go on PO antibiotics on discharge, okay to discharge as per Vascular surgery. // Hyponatremia Patient has hyponatremia currently in the low 120s. After reviewing the patient 's recent admissions it appears that the patient usually had a sodium level below 130. He will be started on normal saline as the patient appears dry on physical examination. Patient's hyponatremia is possibly secondary due to dehydration as he has been having poor p.o. intake. Nephrology will be consulted to evaluate the patient for hyponatremia. = Sodium improving to 129 today. Nephrology following. improving electrolytes. //Chronic diastolic CHF = Continues on Coreg. -Does not appear to be in acute exacerbation, however does have marketed bilateral lower extremity edema. Will check BNP. Start Lasix IV twice daily. = BNP in the 300s. Follow potassium. = 06/24. Recheck potassium tomorrow. Will start on fluid restrictions. //Right lower extremity edema. Secondary to venous insufficiency. Does not appear to have CHF exacerbation. Will start Sawyer wraps. Advised patient to keep leg elevated as much as possible. Unfortunately he likes to sit in mobility chair. //Hypokalemia. Potassium 3.2. Replace and monitor. = Resolved after replacement // History of an STEMI. Continue aspirin, statin, and beta-ermias. DVT prophy: as re commended by compensation specialist. Code Status: Full code. Discussed Condition With: patient and nurse. Discharge Planning: Pending vascular surgery clearance PT consult ordered and pending.
--- NOTE | 2018-06-25 11:14 | P.PNVS ---
Subjective Subjective/Hospital Course: Patient seen and full consult dictated. Thanks J 06/22/2018 At this point, left femoropopliteal bypass is widely patent with excellent signal. Unfortunately, the patient has severe small vessel disease and severe disease beyond the trifurcation which has been noted at the initial admission in March this year. Therefore, the outflow is limited. There is nothing to reconstruct or fix as far as the outflow and small vessel disease is concerned. 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 This is foul smelling, infected, and the patient will require a minimum below-knee amputation, but in the future might require above-knee amputation. I have discussed with the patient and he would like to try below-knee amputation because, again, he is using his legs as a lever to move himself around, and it would be very hard for him to do that if he had above-knee amputation. The fact that the femoral-popliteal graft is patent has no bearing on the fact that patient has small vessel disease in his foot and this is an unreconstructable situation. Nonetheless with patent graft patient will at least end up with below-knee amputation rather than above-knee. Therefore I agree with Dr. Gordillo and I strongly recommend left below-knee amputation at this time in order to prevent further systemic symptoms send potential complications. Patient scheduled for surgery tomorrow and have discussed this with him in detail 06/24/2018 Status post left BKA. Dressing intact and clean We will leave the dressing on until Tuesday Nothing to add to care at this time 06/25/2018 Left BK stump clean and dry Patient still has considerable swelling of the leg with retained fluid Anasarca When sitting in chair patient should not hang the stump down but should be propped on pillows as I suggested several times From my point patient can be discharged any time Stitches to remain in for about 3 weeks total Objective Vital Signs / I&O: Vital Signs 06/24/18 12:00 06/24/18 16:00 06/24/18 20:00 Temperature 97.4 F L 97.4 F L 97.3 F L Pulse Rate 84 85 84 Respiratory Rate 18 18 17 Blood Pressure 103/55 L 95/57 L 101/60 Pulse Oximetry 93 L 93 L 94 L 06/25/18 00:00 06/25/18 08:00 Temperature 97.2 F L 97.8 F Pulse Rate 83 86 Respiratory Rate 17 18 Blood Pressure 106/61 122/63 Pulse Oximetry 94 L 94 L Intake & Output 06/24/18 06/25/18 06/25/18 18:59 06:59 18:59 Intake Total 2262.5 / 2262.5 1404 / 1404 100 / 100 Output Total 600 / 600 400 / 400 Balance 1662.5 / 1662.5 1004 / 1004 100 / 100 Weight 74 kg Intake: IV 462.5 / 462.5 924 / 924 100 / 100 Zosyn 4.5 GM Premix 4.5 gm In 200 / 200 200 / 200 100 / 100 100 ml @ 200 mls/hr IV.SIG Q6H ZULEMA Rx#:[id number] Vancomycin Inj 1,250 MG In NS 262.5 / 262.5 524 / 524 Inj 250 ML @ 250 mls/hr IV.SIG Q12H ZULEMA Rx#:[id number] Oral 1800 / 1800 480 / 480 Output: Urine 600 / 600 400 / 400 Laboratory Results - last 24 hr 06/24/18 06/25/18 06/25/18 11:00 05:04 05:04 WBC 8.8 RBC 3.82 L Hgb 11.3 L Hct 33.5 L MCV 87.6 MCH 29.5 MCHC 33.7 RDW 19.7 H Plt Count 431 MPV 6.9 L Neut % (Auto) 65.6 Lymph % (Auto) 17.2 [place] % (Auto) 14.7 H Eos % (Auto) 1.7 Baso % (Auto) 0.8 Neut # (Auto) 5.8 Lymph # (Auto) 1.5 [place] # (Auto) 1.3 H Eos # (Auto) 0.2 Baso # (Auto) 0.1 WBC Differential . Differential Comment Auto diff final Sodium 133 L Potassium 3.3 L Chloride 92 L Carbon Dioxide 31.0 Anion Gap 10 BUN 7 Creatinine 0.58 L Estimated GFR Greater than 89 Random Glucose 85 Calcium 7.7 L Phosphorus 4.0 Magnesium 1.7 Albumin 2.1 L Vancomycin Trough 14.2 H Microbiology 06/19/18 14:38 Aerobic Blood Culture - Final Blood - Peripheral No growth in 5 days Anaerobic Blood Culture - Final No growth in 5 days 06/19/18 14:45 Aerobic Blood Culture - Final Blood - Peripheral No growth in 5 days Anaerobic Blood Culture - Final No growth in 5 days
[2018-06-25] MEDS: Mag Sulf 1 gm/100 ml Premix 100 ML IV.SIG SCH ×2 (12:31→14:09)
[2018-06-25] MEDS ORDERED: Potassium Chloride 10 MEQ ER Capsule PO ONE (15:00)
[2018-06-26] MEDS: Piperacil/Tazo 4.5 GM Premix 4.5 GM/100 ML BAG IV.SIG SCH ×2 (04:37→09:05)
[2018-06-26 06:33] LABS: Anion Gap 6 meq/L (5-15); Blood Urea Nitrogen 10 mg/dL (7-18); Carbon Dioxide 32.4 meq/L (21.0-32.0); Chloride 92 meq/L (98-107); Glomerular Filtration Rate Greater Than 89 mL/min (>89); Glucose,Random 102 mg/dL (74-106); Potassium 3.3 meq/L (3.5-5.1); Sodium 130 meq/L (136-145)
[2018-06-26] MEDS: Senna/Docusate Sodium 8.6/50 MG Tablet PO SCH (09:05)
[2018-06-26 09:17] VITALS: O2SAT 93
[2018-06-26] MEDS ORDERED: Pharmacy Ordered Lab Info OTHER ONE (09:45)
[2018-06-26] MEDS: Vancomycin Inj 1,250 MG in Sodium Chlor 0.9% Inj 250 ML IV.SIG SCH (13:18)
[2018-06-26 14:12] VITALS: BP 114/58; PULSE 79; RESP 18; TEMP 97.8
--- NOTE | 2018-06-26 15:00 | P.PN ---
Subjective Interval history: This is a pleasant 68 y/o Male with severe peripheral Artery disease, paraplegia and is wheelchair-bound, status post stem pop bypass and partial left foot amputation. He also has chronic hyponatremia. followed Vascular paralegal specialist Notes, status post Left femoropopliteal bypass is widely patent with excellent signal Unfortunately the patient has severe small vessel disease and severe disease beyond the trifurcation which has been noted at the initial admission in March this year, the outflow is limited There is nothing to reconstruct or fix as far as the outflow and small vessel disease is concerned. 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 This is foul smelling, infected, and the patient will require a minimum below-knee amputation, but in the future might require above-knee amputation. I have discussed with the patient and he would like to try below-knee amputation because, again, he is using his legs as a lever to move himself around, and it would be very hard, he is in status post left BKA, left dressing until tomorrow, as per Vascular surgery has Anasarca and retained fluid, may be discharged at any time now. 06/26: Stable in his bedroom no nausea, vomit or diarrhea discussed with division sales manager and nurse he is able to go at this time to home with [facility] for PT and skilled nurse, wound care. Physical Exam Vital signs: Vital Signs 06/25/18 16:00 06/25/18 20:00 06/26/18 00:00 Temperature 98.1 F 98.0 F 97.7 F Pulse Rate 79 84 74 Respiratory Rate 18 20 20 Blood Pressure 106/66 120/56 L 109/53 L Pulse Oximetry 95 95 94 L 06/26/18 08:00 06/26/18 12:00 Temperature 97.9 F 97.8 F Pulse Rate 93 H 79 Respiratory Rate 17 18 Blood Pressure 122/60 114/58 L Pulse Oximetry 93 L 93 L Intake & Output 06/25/18 06/26/18 06/26/18 18:59 06:59 18:59 Intake Total 1912 / 1912 1144 / 1144 100 / 100 Output Total 800 / 800 1080 / 1080 Balance 1112 / 1112 64 / 64 100 / 100 Intake: IV 912 / 912 724 / 724 100 / 100 Magnesium Sulfate 1 gm/D5W 100 200 / 200 ml Premix 100 ML @ 100 mls/hr IV.SIG Q1H ZULEMA Rx#:[id number] Zosyn 4.5 GM Premix 4.5 gm In 200 / 200 200 / 200 100 / 100 100 ml @ 200 mls/hr IV.SIG Q6H ZULEMA Rx#:[id number] Vancomycin Inj 1,250 MG In NS 512 / 512 524 / 524 Inj 250 ML @ 250 mls/hr IV.SIG Q12H ZULEMA Rx#:[id number] Oral 1000 / 1000 420 / 420 Output: Urine 800 / 800 1080 / 1080 Other: Date of Last Bowel Movement 06/25/18 06/25/18 Narrative: GENERAL: Patient sitting up in bed. Appears comfortable. SKIN: Warm and dry. HEAD: Normocephalic. EYES: No scleral icterus. No injection or drainage. NECK: Supple, trachea midline. No JVD or lymphadenopathy. CARDIOVASCULAR: Regular rate and rhythm without murmurs, gallops, or rubs. RESPIRATORY: Breath sounds equal bilaterally. No accessory muscle use. GASTROINTESTINAL: Abdomen soft, non-tender, nondistended. MUSCULOSKELETAL: No cyanosis. +2 RLE edema with some weeping. sitting up in chair.Left lower BKA dressing intact. BACK: Nontender without obvious deformity. No CVA tenderness. - Urinary Catheter Management Indwelling Urethral Catheter Cath placed during this visit: yes Reason for continuing: Hourly intake/output Insertion date: 06/23/18 Results - Labs CBC & Chem 7: 06/25/18 05:04 06/26/18 05:43 Laboratory Results - last 24 hr 06/26/18 06/26/18 05:43 09:49 Sodium 130 L Potassium 3.3 L Chloride 92 L Carbon Dioxide 32.4 H Anion Gap 6 BUN 10 Creatinine 0.59 L Estimated GFR Greater than 89 Random Glucose 102 Calcium 8.0 L Magnesium 2.0 Vancomycin Trough 16.8 H Assessment and Plan - Plan This patient is a 68-year-old male with above-mentioned past medical history severe peripheral vascular disease, status post partial amputation of the left foot.. The patient presented with worsening bilateral lower extremity cellulitis. Because of his symptoms he was sent to our emergency department for evaluation and care. //Bilateral lower extremity cellulitis and severe peripheral vascular disease. 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 Podiatry has been consulted to evaluate the patient further management recommendations regarding possible debridement and/or amputation. We will follow up with recommendations. = proteus on wound cultures. Continue IV antibiotics. Discussed with podiatry. Appreciate assistance. Will START antibiotics. = Vascular surgery consult pending. Status post Left BKA will go on PO antibiotics on discharge, okay to discharge as per Vascular surgery. // Hyponatremia Patient has hyponatremia currently in the low 120s. After reviewing the patient 's recent admissions it appears that the patient usually had a sodium level below 130. He will be started on normal saline as the patient appears dry on physical examination. Patient's hyponatremia is possibly secondary due to dehydration as he has been having poor p.o. intake. Nephrology will be consulted to evaluate the patient for hyponatremia. = Sodium improving to 129 today. Nephrology following. improving electrolytes. //Chronic diastolic CHF = Continues on Coreg. -Does not appear to be in acute exacerbation, however does have marketed bilateral lower extremity edema. Will check BNP. Start Lasix IV twice daily. = BNP in the 300s. Follow potassium. = 06/24. Recheck potassium tomorrow. Will start on fluid restrictions. //Right lower extremity edema. Secondary to venous insufficiency. Does not appear to have CHF exacerbation. Will start Sawyer wraps. Advised patient to keep leg elevated as much as possible. Unfortunately he likes to sit in mobility chair. //Hypokalemia. Potassium 3.3 replaced and will go home on Potassium by mouth, follow by PCP and Vascular surgery. // History of an STEMI. Continue aspirin, statin, and beta-ermias. DVT prophy: as re commended by paralegal specialist. Code Status: full code. Discussed Condition With: Patient, Nurse and division sales manager. Discharge Planning: discharge Home with [facility] for PT and wound care.
--- NOTE | 2018-06-26 15:17 | P.DCO ---
- Diagnosis (2) Cellulitis - Physical Therapy Order: Evaluate and treat, Improve ambulation, Strength and gait training - Occupational Therapy Order: Evaluate and treat, Improve ADL, Gross motor coordination - Home Health Nursing Order: Medical education, Signs/symptoms of disease process, Medication education-adverse effect, Wound care and dressing changes, Nursing assessment with vital signs - Case Management Consult Yes - Certification I have seen patient Aron Wang on 06/26/18. My clinical findings support the need for the requested home health care services because: Limited mobility due to disease progression, Infection with risk of complications I certify that my clinical findings support that this patient is homebound because: Unsafe to leave home unassisted (2) Cellulitis Qualifiers: Site of cellulitis: other site Qualified Code(s): L03.818 - Cellulitis of other sites
--- NOTE | 2018-06-26 15:19 | P.DS ---
Date of admission: 06/19/18 16:57 Primary care physician: No Primary Care Physician Attending physician on discharge: Jay Jay Laboy Anticipated date of discharge: 06/26/18 Brief History from admission: This patient is a 68-year-old male with a past medical history of severe peripheral vascular disease, paraplegia and is wheelchair-bound, status post stem pop bypass and partial left foot amputation. He also has chronic hyponatremia. The patient was recently admitted at our facility and was treated for an STEMI as well as bilateral foot cellulitis. He was evaluated by podiatry and at that time was refusing treatment and recommendations. The patient is wheelchair-bound and has some ulcerations of bilateral buttocks as well as worsening bilateral foot cellulitis. Because of his symptoms he was sent almost department for evaluation and care. He denies having any fevers or chills however the pain his feet and ulcerations were getting worse so he came in for evaluation. He denies any abdominal pain, no diarrhea, no chest pain, shortness of breath. DS: Diagnosis - Discharge Diagnosis (1) Amputation of leg Status: Acute (2) Cellulitis Status: Acute (3) Gangrene of left foot Status: Acute (4) Peripheral vascular disease Status: Acute DS: Medications - Discharge Medications Prescriptions: hydrocodone-acetaminophen 1 tab PO Q4H PRN 3 Days #14 tab PRN Reason: pain 3 - 6 DS: Summary Hospital Course: This is a pleasant 68 y/o Male with severe peripheral Artery disease, paraplegia and is wheelchair-bound, status post stem pop bypass and partial left foot amputation. He also has chronic hyponatremia. followed Vascular surgery center administrator Notes, status post Left femoropopliteal bypass is widely patent with excellent signal Unfortunately the patient has severe small vessel disease and severe disease beyond the trifurcation which has been noted at the initial admission in March this year, the outflow is limited There is nothing to reconstruct or fix as far as the outflow and small vessel disease is concerned. 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 This is foul smelling, infected, and the patient will require a minimum below-knee amputation, but in the future might require above-knee amputation. I have discussed with the patient and he would like to try below-knee amputation because, again, he is using his legs as a lever to move himself around, and it would be very hard, he is in status post left BKA, left dressing until tomorrow, as per Vascular surgery has Anasarca and retained fluid, may be discharged at any time now. 06/26: Stable in his bedroom no nausea, vomit or diarrhea discussed with business initiatives manager and nurse he is able to go at this time to home with [facility] for PT and skilled nurse, wound care. Assessment and Plan - Plan This patient is a 68-year-old male with above-mentioned past medical history severe peripheral vascular disease, status post partial amputation of the left foot.. The patient presented with worsening bilateral lower extremity cellulitis. Because of his symptoms he was sent to our emergency department for evaluation and care. //Bilateral lower extremity cellulitis and severe peripheral vascular disease. 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 Podiatry has been consulted to evaluate the patient further management recommendations regarding possible debridement and/or amputation. We will follow up with recommendations. = proteus on wound cultures. Continue IV antibiotics. Discussed with podiatry. Appreciate assistance. Will START antibiotics. = Vascular surgery consult pending. Status post Left BKA will go on PO antibiotics on discharge, okay to discharge as per Vascular surgery. // Hyponatremia Patient has hyponatremia currently in the low 120s. After reviewing the patient 's recent admissions it appears that the patient usually had a sodium level below 130. He will be started on normal saline as the patient appears dry on physical examination. Patient's hyponatremia is possibly secondary due to dehydration as he has been having poor p.o. intake. Nephrology will be consulted to evaluate the patient for hyponatremia. = Sodium improving to 129 today. Nephrology following. improving electrolytes. //Chronic diastolic CHF = Continues on Coreg. -Does not appear to be in acute exacerbation, however does have marketed bilateral lower extremity edema. Will check BNP. Start Lasix IV twice daily. = BNP in the 300s. Follow potassium. = 06/24. Recheck potassium tomorrow. Will start on fluid restrictions. //Right lower extremity edema. Secondary to venous insufficiency. Does not appear to have CHF exacerbation. Will start Sawyer wraps. Advised patient to keep leg elevated as much as possible. Unfortunately he likes to sit in mobility chair. //Hypokalemia. Potassium 3.3 replaced and will go home on Potassium by mouth, follow by PCP and Vascular surgery. // History of an STEMI. Continue aspirin, statin, and beta-ermias. DVT prophy: as re commended by surgery center administrator. Code Status: full code. Discussed Condition With: Patient, Nurse and business initiatives manager. Discharge Planning: discharge Home with [facility] for PT and wound care. - Time Spent with Patient Total time spent providing and/or coordinating discharge services: Greater than 30 minutes - Quality: VTE Deep Vein Thrombosis/Pulmonary Embolism Present on Admission: No Exam Vital signs: Vital Signs 06/25/18 16:00 06/25/18 20:00 06/26/18 00:00 Temperature 98.1 F 98.0 F 97.7 F Pulse Rate 79 84 74 Respiratory Rate 18 20 20 Blood Pressure 106/66 120/56 L 109/53 L Pulse Oximetry 95 95 94 L 06/26/18 08:00 06/26/18 12:00 Temperature 97.9 F 97.8 F Pulse Rate 93 H 79 Respiratory Rate 17 18 Blood Pressure 122/60 114/58 L Pulse Oximetry 93 L 93 L Intake & Output 06/25/18 06/26/18 06/26/18 18:59 06:59 18:59 Intake Total 1912 / 1912 1144 / 1144 100 / 100 Output Total 800 / 800 1080 / 1080 Balance 1112 / 1112 64 / 64 100 / 100 Intake: IV 912 / 912 724 / 724 100 / 100 Magnesium Sulfate 1 gm/D5W 100 200 / 200 ml Premix 100 ML @ 100 mls/hr IV.SIG Q1H ZULEMA Rx#:[id number] Zosyn 4.5 GM Premix 4.5 gm In 200 / 200 200 / 200 100 / 100 100 ml @ 200 mls/hr IV.SIG Q6H ZULEMA Rx#:[id number] Vancomycin Inj 1,250 MG In NS 512 / 512 524 / 524 Inj 250 ML @ 250 mls/hr IV.SIG Q12H ZULEMA Rx#:[id number] Oral 1000 / 1000 420 / 420 Output: Urine 800 / 800 1080 / 1080 Other: Date of Last Bowel Movement 06/25/18 06/25/18 Narrative: GENERAL: Patient sitting up in bed. Appears comfortable. SKIN: Warm and dry. HEAD: Normocephalic. EYES: No scleral icterus. No injection or drainage. NECK: Supple, trachea midline. No JVD or lymphadenopathy. CARDIOVASCULAR: Regular rate and rhythm without murmurs, gallops, or rubs. RESPIRATORY: Breath sounds equal bilaterally. No accessory muscle use. GASTROINTESTINAL: Abdomen soft, non-tender, nondistended. MUSCULOSKELETAL: No cyanosis. +2 RLE edema with some weeping. sitting up in chair.Left lower BKA dressing intact. BACK: Nontender without obvious deformity. No CVA tenderness. Results Procedures completed during hospitalization: Status post Left BKA Pending studies at discharge: Pending at discharge 06/23/18 15:00 Surgical [PTH] Routine Labs on day of discharge: Labs from last 24 hours 06/26/18 06/26/18 09:49 05:43 Sodium 130 L Potassium 3.3 L Chloride 92 L Carbon Dioxide 32.4 H Anion Gap 6 BUN 10 Creatinine 0.59 L Estimated GFR Greater than 89 Random Glucose 102 Calcium 8.0 L Magnesium 2.0 Vancomycin Trough 16.8 H - Impressions ITS Impressions Chest X-Ray 06/19/18 14:41 CONCLUSION: 1. Mild increased interstitial markings are noted consistent with possible pulmonary vascular congestion or viral pneumonitis. Clinical correlation is recommended. Foot X-Ray 06/19/18 15:34 CONCLUSION: 1. No acute fracture or dislocation. 2. Diffuse osteoporosis. Discharge Plan - Discharge Disposition Patient Disposition: /Home Health Service - Discharge Condition Condition: Stable - Discharge Order Discharge Orders: Discharge Order (Routine); Ordered 06/26/18 Ordered By: Jay Jay Laboy - Discharge Details Anticipated Discharge Date: 06/26/18 Discharge Comment: Follow with PCP in three days - Physicians Team Primary Care Provider: Primary Care Physici,No Attending Provider: Jay Jay Laboy Other Providers: Solo Mello MD ; Aba Treviño DPM ; Bertram Luciano MD
== END 2018-06-26 16:53 | disposition home health service (06) ==
LOC: NEPC 10:32 → NEDA 16:57 → N07 18:32 → UNDODISIN 06-23 11:34
PROVIDERS: ADMIT Internal Medicine; ATTEND Internal Medicine

== ENCOUNTER 2018-07-18 13:01 | Inpatient (IN) ==
--- NOTE | 2018-07-18 14:49 | P.HPIM ---
History of Present Illness Primary Care Physician: UNKNOWN History of Present Illness: Mr. Wang is a 68-year-old male. 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 Since this time that left leg and wound have been healing well. However he has developed an infection and gangrenous changes at 1 toe on his right foot. He denies any fevers. He does say that he has pain. No other complaints today. - Diagnosis (1) Gangrene of right foot Inpatient Certification: I certify that the inpatient services were ordered in accordance with Medicare regulations governing the order. This includes certification that hospital inpatient services are reasonable and necessary and in the case of services not specified as inpatient-only under 42 CFR 419.22(n), that they are appropriately provided as inpatient services in accordance to with the 2-midnight benchmark under 43 CFR 412.3(e) Estimated Total Length of Stay (Days): 5 Plans for Post Hospital Care: Home Review of Systems Constitutional: No fevers, no chills no night sweats, no fatigue, no weakness Eyes: No eye pain, no blurry vision, no loss of vision ENT: No sore throat, no ear pain, no rhinorrhea Cardiovascular: No chest pain, no tachycardia, no palpitations, no shortness of breath, no syncope Respiratory: No wheezing, no cough, no shortness of breath Gastrointestinal: No abdominal pain, no black tarry stools, no bright red blood per rectum, no vomiting, no diarrhea Musculoskeletal: No joint pain, no muscle cramps, no stiffness, right foot pain Integumentary: No rash, no ulcers, no drainage Neurologic: No sensory loss, no loss of motor function, no dizziness Psychiatric: No behavioral changes, no hallucinations, no suicidal ideations PMFSH - History History Provided By: Patient - Medical History Medical History: Medical History (Last Reviewed 06/24/18 @ 08:57 by Edwina Jacobs) CHF (congestive heart failure) Depression Hypercholesteremia - Surgical History Surgical History: Surgical History (Last Reviewed 06/24/18 @ 08:57 by Edwina Jacobs) Status post femoral-popliteal bypass surgery - Family History Family History: Family History (Last Reviewed 06/20/18 @ 07:21 by Fahad Cisneros DO) Father Family history of cancer - Tobacco History Second Hand Smoke Exposure: No Smoking Status: Current every day smoker Tobacco Type: Cigarettes - Alcohol History How Often Do You Have a Drink Containing Alcohol: Monthly or less - Substance Use History Substance History: No History of Abuse - Travel History History of Recent Travel: Yes (Moved here from [facility] about 3 weeks ago) Medications and Allergies Active Medications: Active Medications Hydrocodone Bitart/Acetaminophen ([place] 10/325) 1 tab PO Q4H PRN PRN Reason: Pain 7 to 10 Hydrocodone Bitart/Acetaminophen ([place] 5/325) 1 tab PO Q4H PRN PRN Reason: Pain 3 to 6 Al Hydroxide/Mg Hydroxide (Milk Of Magnazul Liq) 30 ml PO Q12H PRN PRN Reason: Mild Constipation Atorvastatin Calcium (Lipitor) 40 mg PO HS ZULEMA Carvedilol (Coreg) 3.125 mg PO BID ZULEMA Furosemide (Lasix) 20 mg PO BID ZULEMA Sodium Chloride (Ns Inj) 1,000 mls @ 75 mls/hr IV.CONT .[id number] ZULEMA Non-Formulary Medication (Gabapentin [Gabapentin]) 800 mg PO BID ZULEMA Non-Formulary Medication (Omeprazole [Omeprazole]) 20 mg PO DAILY ZULEMA Potassium Chloride (Kcl) 20 meq PO BID ZULEMA Allergies Allergy/AdvReac Type Severity Reaction Status Date / Time No Known Allergies Allergy Verified 04/06/18 17:04 Home Medications Medication Instructions Recorded Confirmed Type omeprazole 20 mg PO DAILY 04/01/18 04/06/18 History aspirin [Ye Aspirin] 325 mg PO DAILY 06/19/18 History carvedilol [Coreg] 3.125 mg PO BID 06/19/18 History gabapentin 06/19/18 History Exam Narrative: GENERAL: NAD, A&Ox3 HEAD: Normocephalic. NECK: Supple, trachea midline. No lymphadenopathy. EYES: No scleral icterus. No injection or drainage. CARDIOVASCULAR: Regular rate and rhythm without murmurs, gallops, or rubs. RESPIRATORY: Breath sounds equal bilaterally. No accessory muscle use. GASTROINTESTINAL: Abdomen soft, non-tender, nondistended. MUSCULOSKELETAL: No cyanosis, or edema. Left BKA, healing well. Right distal foot is bandaged. SKIN: Warm and dry. NEURO: No focal neurological deficits. Caprini VTE Risk Assessment Caprini VTE Risk Assessment: Moderate/High Risk (score >= 2) Caprini Risk Assessment Model: Point Value = 1 Point Value = 2 Point Value = 3 Point Value = 5 Age 41-60 Minor surgery BMI > 25 kg/m2 Swollen legs Varicose veins or History of unexplained or recurrent spontaneous Oral contraceptives or hormone replacement Sepsis (< 1 month) Serious lung disease, including pneumonia (< 1 month) Abnormal pulmonary function Acute myocardial infarction Congestive heart failure (< 1 month) History of inflammatory bowel disease Medical patient at bed rest Age 61-74 Arthroscopic surgery Major open surgery (> 45 min) Laparoscopic surgery (> 45 min) Malignancy Confined to bed (> 72 hours) Immobilizing plaster cast Central venous access Age >= 75 History of VTE Family history of VTE Factor V Leiden Prothrombin [id number] Lupus anticoagulant Anticardiolipin antibodies Elevated serum homocysteine Heparin-induced thrombocytopenia Other congenital or acquired thrombophilia Stroke (< 1 month) Elective arthroplasty Hip, pelvis, or leg fracture Acute spinal cord injury (< 1 month) Prophylaxis Regimen: Total Risk Factor Score Risk Level Prophylaxis Regimen 0-1 Low Early ambulation 2 Moderate Order ONE of the following: *Sequential Compression Device (SCD) *Heparin 5000 units SQ BID 3-4 Higher Order ONE of the following medications: *Heparin 5000 units SQ TID *Enoxaparin/Lovenox 40 mg SQ daily (WT < 150 kg, CrCl > 30 mL/min) *Enoxaparin/Lovenox 30 mg SQ daily (WT < 150 kg, CrCl > 10-29 mL/min) *Enoxaparin/Lovenox 30 mg SQ BID (WT < 150 kg, CrCl > 30 mL/min) AND/OR *Sequential Compression Device (SCD) 5 or more Highest Order ONE of the following medications: *Heparin 5000 units SQ TID (Preferred with Epidurals) *Enoxaparin/Lovenox 40 mg SQ daily (WT < 150 kg, CrCl > 30 mL/min) *Enoxaparin/Lovenox 30 mg SQ daily (WT < 150 kg, CrCl > 10-29 mL/min) *Enoxaparin/Lovenox 30 mg SQ BID (WT < 150 kg, CrCl > 30 mL/min) AND *Sequential Compression Device (SCD) Assessment and Plan - Assessment (1) Gangrene of right foot Code(s): I96 - Gangrene, not elsewhere classified Status: Acute - Plan 68-year-old male admitted secondary to right foot/toe gangrene Right foot/toe gangrene PVD Hx of Left BKA due to Gangrene Vancomycin Zosyn Probiotics As needed pain treatments Consult podiatry Consult vascular surgery Congestive heart failure Continue baseline treatments Follow clinically No evidence of exacerbation Hyperlipidemia Continue statin Follow clinically Follow lipids as an outpatient Depression No change to baseline treatments DVT prophylaxis No anticoagulation provided due to pending surgery SCDs not provided due to previous amputation and degree of peripheral vascular disease
[2018-07-18] MEDS ORDERED: Vancomycin Consult Pharmacy OTHER PRN (16:41)
[2018-07-18] MEDS ORDERED: Vancomycin Inj 1 GM/200 ML PIGGYBACK IV.SIG SCH (17:00)
[2018-07-18] MEDS: Lactobacillus Acidophilus/L. Spores Tablet PO SCH (17:56)
[2018-07-18] MEDS: Sod Chloride 0.9% Inj 1,000 ML IV.CONT SCH (17:57)
[2018-07-18] MEDS: Vancomycin Inj 1,250 MG in Sodium Chlor 0.9% Inj 250 ML IV.SIG SCH (18:12)
--- NOTE | 2018-07-18 18:15 | MB ---
cc: Aba Gordillo DPM DATE: 07/18/2018 REASON FOR CONSULTATION: Right second digit gangrene. HISTORY OF PRESENT ILLNESS: This is a 68-year-old male who is well known to the podiatry service. The patient was recently seen, today in fact, by vascular surgeon, Dr. Glen Luciano, and there was noted to be changes of the right second digit. Of note, the patient has a healing left below-knee amputation. The patient is currently seen at bedside. He is not having significant pain. He denies any rapid progression, but he is unsure how long the toe has been black in parts. The patient apparently resides in a half-way facility. Outpatient medications were reviewed. I am unsure of the last time he had aspirin 325, unsure if there are any active antibiotics. Inpatient medications, we are starting antibiotics. Orders have not been placed yet by the admitting team. ALLERGIES: NONE LISTED. PAST MEDICAL HISTORY: CHF, depression, hypercholesteremia, status post femoral bypass, PVD, nonhealing left Chopart amputation, now a healing left [id number]-elkf amputation. PHYSICAL EXAMINATION: VITAL SIGNS: The patient appears to be afebrile with all vital signs stable. GENERAL: This is an alert and oriented gentleman seen at bedside exhibiting nonlabored respirations. EXTREMITIES: The left lower extremity was not examined; however, per patient, there is a well-healing below-knee amputation. The right lower extremity is examined. There is noted to be a full-thickness eschar with margins that appear to be moist and wet of the distal lateral aspect of the digit. It appears to go down to the capsule of the PIPJ. There is periwound erythema. There is mild interdigital maceration noted, but most of the problem appears to be of the right second digit. There is moderate swelling and edema of the dorsum of the foot. Pulses are hard to palpate, but the foot appears to be warm. There is no obvious odor. There is no crepitus, no obvious soft tissue emphysema. INPATIENT MEDICATIONS: Reviewed. The patient is receiving Zosyn and vancomycin. Please see complete medication list in chart. DIAGNOSTIC STUDIES: Laboratory findings are pending. Microbial is pending. I spoke with admitting team and we both agreed that an MRI is indicated to evaluate for osteomyelitis of the digit. ASSESSMENT AND PLAN: Right second digit eschar, peripheral vascular disease, possible evolving gangrene. At this point, I do recommend an MRI for evaluation for debridement versus digit amputation. The patient understood. He will be ordered n.p.o. after 7 a.m. with anticipation for surgery at 4 p.m. or later tomorrow. I appreciate this consultation. I will continue to review the case with vascular. NIKITA Sinha/fahad , 05:05 PM , 05:14 PM
[2018-07-18 18:45] LABS: Glomerular Filtration Rate Greater Than 89 mL/min (>89)
[2018-07-18] MEDS: Piperacil/Tazo 3.375 GM Premix 50 ML IV.SIG SCH (19:25)
--- NOTE | 2018-07-18 19:41 | P.PNVS ---
Subjective Subjective/Hospital Course: 68-year-old male known to me from previous admissions and recent surgeries. Several weeks ago patient underwent left below-knee amputation for gangrene of the foot. Patient came to my office because he fell on his stump and noticed some drainage. On exam patient has a small area of crusting and another 1 of small dehiscence very superficial so this should heal okay In addition patient has an area of partial thickness skin loss just subpatellar away from the actual stump and this must be due to either tape or some other sort of a burn Apparently home health has been taking very poor care of patients wound and he came to my office all bundled up with dirty dressings. Apparently the wound was not taken care off, was not washed or treated in any way. While this problem has been handled examination reveals right leg problem with wet gangrene of the right second toe and perhaps the third toe as well. CTA performed in March this year reveals occluded superficial femoral artery on the right with a reconstitution of the popliteal and this patient is a candidate for femoral-popliteal bypass however he has to be first taking care of , rehydrated and should have podiatry amputation of the second toe considering the [place] graft will be eventually placed and I do not want infection to spread to the synthetic tissues. Therefore in best case scenario patient should be stabilized placed on antibiotics have the second toe amputated and then may be by the end of the week we going to go ahead with a right femoral-popliteal bypass. Patient in addition has fairly severe distal disease with multilevel stenosis of all 3 vessels and therefore is at high risk of losing the right leg despite best care. Will follow Objective Vital Signs / I&O: Vital Signs 07/18/18 16:00 Temperature 97.6 F Pulse Rate 92 H Respiratory Rate 12 Blood Pressure 126/53 L Pulse Oximetry 89 L Intake & Output 07/18/18 07/18/18 07/19/18 06:59 18:59 06:59 Intake Total 262.5 / 262.5 Balance 262.5 / 262.5 Weight 78.925 kg Intake: IV 262.5 / 262.5 Vancomycin Inj 1,250 MG In NS 262.5 / 262.5 Inj 250 ML @ 250 mls/hr IV.SIG Q12H ZULEMA Rx#:[id number] Other: # Voids 1 Weight On Admission 78.925 kg Laboratory Results - last 24 hr 07/18/18 18:13 Creatinine 0.82 Estimated GFR Greater than 89
[2018-07-18] MEDS: Potassium Chloride 10 MEQ ER Capsule PO SCH (21:03)
[2018-07-18] MEDS: Furosemide 20 MG Tablet PO SCH (21:03)
[2018-07-18] MEDS: Gabapentin 400 MG Capsule PO SCH (21:03)
--- NOTE | 2018-07-18 21:58 | CT ---
EXAM DATE: 07/18/2018 9:20 PM EDT AGE/SEX: 68 years / Male INDICATIONS: Right foot pain. CLINICAL DATA: This is the patient's initial encounter. Patient reports that signs and symptoms have been present for 1 day and indicates a pain score of 7/10. MEDICAL/SURGICAL HISTORY: Congestive heart failure. Peripheral vascular disease. None. RADIATION DOSE: 7.29 CTDI (mGy) COMPARISON: [facility] – [place], FOOT LIMITED RIGHT 2V, 06/19/2018. . TECHNIQUE: Multiple contiguous axial images were acquired using a multirow detector CT scanner after the intravenous administration of 71 ml Omnipaque 350 (iohexol) nonionic water-soluble contrast as a single exam dose. Multiplanar reconstruction was performed in the sagittal and coronal planes. Us ing automated exposure control and adjustment of the mA and/or kV according to patient size, radiatio n dose was kept as low as reasonably achievable to obtain optimal diagnostic quality images. DICOM f ormat image data is available electronically for review and comparison. FINDINGS: Bones: No fracture is seen. There are focal lucencies seen throughout the bony structures. This coul d be seen with prominent osteopenia. Focal areas of destruction are not seen. There is mild spurring at the dorsal distal talus. There is some spurring seen at the first metatarsal head the first MTP jesus manuel int region. Joints: The bones and joints are normally aligned.. Soft Tissues: No soft tissue mass is seen. Vascular calcifications are seen. There is mild soft tiss ue swelling seen at the dorsal aspect of the foot. Other: No foreign bodies seen. Post Contrast: No abnormal areas of enhancement are seen in the marrow or soft tissues. CONCLUSION: 1. Multiple focal lucencies seen throughout the bony structures in the foot which could be seen with prominent osteopenia. Other underlying conditions such as reflex sympathetic dystrophy could have a similar appearance in the correct clinical situation. 2. No areas of bony fracture or bony destruction. Electronically signed by: Jairo Huerta MD 07/18/2018 9:57 PM EDT
[2018-07-19] MEDS: Piperacil/Tazo 3.375 GM Premix 50 ML IV.SIG SCH ×3 (02:04→17:09)
[2018-07-19] MEDS ORDERED: Chlorhexidine Gluconate 2% 1 Pack (2 Cloths) TOPICAL ONE (02:57)
[2018-07-19] MEDS: Vancomycin Inj 1,250 MG in Sodium Chlor 0.9% Inj 250 ML IV.SIG SCH (06:08)
[2018-07-19] MEDS: Sod Chloride 0.9% Inj 1,000 ML IV.CONT SCH (06:10)
--- NOTE | 2018-07-19 08:31 | P.PNPOD ---
Subjective Interval history: No events overnight complaining of right foot pain Physical Exam Vital signs: Vital Signs 07/18/18 16:00 07/18/18 20:00 07/19/18 00:00 Temperature 97.6 F 98.1 F 97.6 F Pulse Rate 92 H 106 H 97 H Respiratory Rate 12 15 15 Blood Pressure 126/53 L 126/60 118/69 Pulse Oximetry 89 L 95 93 L Intake & Output 07/18/18 07/19/18 07/19/18 18:59 06:59 18:59 Intake Total 1616.5 / 1616.5 262.5 / 262.5 Output Total 800 / 800 650 / 650 Balance 816.5 / 816.5 -387.5 / -387.5 Weight 78.925 kg 78.9 kg Intake: IV 1016.5 / 1016.5 262.5 / 262.5 NS Inj 1,000 ML @ 75 mls/hr IV. 654 / 654 CONT .[id number] ZULEMA Rx#:[id number] Zosyn 3.375 GM Premix 50 ML @ 100 / 100 100 mls/hr IV.SIG Q8H ZULEMA Rx#: [id number] Vancomycin Inj 1,250 MG In NS 262.5 / 262.5 262.5 / 262.5 Inj 250 ML @ 250 mls/hr IV.SIG Q12H ZULEMA Rx#:[id number] Oral 600 / 600 Output: Urine 800 / 800 650 / 650 Other: # Voids 1 Weight On Admission 78.925 kg - Constitutional no acute distress - Neurological Alert and oriented x3 - Routine Extremities Exam Comments: Left lower extremity BKA stump wound was not examined. Right lower extremity, ischemic changes to the dorsal lateral aspect of the PIPJ right second digit, reduction in redness and interdigital maceration, foot is warm pulses very hard to palpate, decreased muscle strength noted however no crepitus or instability upon range of motion of forefoot hindfoot and ankle. Decreased sensation to light touch but intact deep pressure Medications and Allergies Active Medications: Active Medications Hydrocodone Bitart/Acetaminophen ([place] 10/325) 1 tab PO Q4H PRN PRN Reason: Pain 7 to 10 Last Admin: 07/19/18 06:08 Dose: 1 tab Hydrocodone Bitart/Acetaminophen ([place] 5/325) 1 tab PO Q4H PRN PRN Reason: Pain 3 to 6 Al Hydroxide/Mg Hydroxide (Milk Of [place] Josephq) 30 ml PO Q12H PRN PRN Reason: Mild Constipation Atorvastatin Calcium (Lipitor) 40 mg PO HS [facility] Last Admin: 07/18/18 21:03 Dose: 40 mg Carvedilol (Coreg) 3.125 mg PO BID [facility] Last Admin: 07/18/18 21:04 Dose: 3.125 mg Furosemide (Lasix) 20 mg PO BID [facility] Last Admin: 07/18/18 21:03 Dose: 20 mg Gabapentin (Neurontin) 800 mg PO BID [facility] Last Admin: 07/18/18 21:03 Dose: 800 mg Sodium Chloride (Ns Inj) 1,000 mls @ 75 mls/hr IV.CONT .[id number] [facility] Last Admin: 07/19/18 06:10 Dose: 75 mls/hr Piperacillin/Tazobactam/Dextrose (Zosyn 3.375 Gm Premix) 50 mls @ 100 mls/hr IV.SIG Q8H [facility] Last Infusion: 07/19/18 02:35 Dose: Infused Vancomycin HCl 1,250 mg/ (Sodium Chloride) 262.5 mls @ 250 mls/hr IV.SIG Q12H [facility] Last Infusion: 07/19/18 07:33 Dose: Infused Lactated Ringer's (Lr 1000 Ml Inj) 1,000 mls @ 30 mls/hr IV.SIG .Q24H [facility] Stop: 07/20/18 02:59 Lactobacillus Acidophilus (Lactinex) 1 tab PO TID [facility] Last Admin: 07/18/18 17:56 Dose: 1 tab Miscellaneous Information ([facility] Ordered Lab Info) 0 each OTHER ONCE ONE Stop: 07/20/18 05:46 Pantoprazole Sodium (Protonix) 20 mg PO DAILY [facility] Pharmacy Profile Note (Vancomycin Consult Pharmacy) 1 each OTHER UNSCH PRN PRN Reason: Pharmacy to dose Potassium Chloride (Kcl) 20 meq PO BID [facility] Last Admin: 07/18/18 21:03 Dose: 20 meq Allergies Allergy/AdvReac Type Severity Reaction Status Date / Time No Known Allergies Allergy Verified 04/06/18 17:04 Home Medications Medication Instructions Recorded Confirmed Type omeprazole 20 mg PO DAILY 04/01/18 07/18/18 History aspirin [Ye Aspirin] 325 mg PO DAILY 06/19/18 07/18/18 History carvedilol [Coreg] 3.125 mg PO BID 06/19/18 07/18/18 History gabapentin 06/19/18 History Results - Labs CBC & Chem 7: 07/18/18 18:13 Laboratory Results - last 24 hr 07/18/18 18:13 Creatinine 0.82 Estimated GFR Greater than 89 - Imaging Impressions Foot CT 07/18/18 00:00 CONCLUSION: 1. Multiple focal lucencies seen throughout the bony structures in the foot which could be seen with prominent osteopenia. Other underlying conditions such as reflex sympathetic dystrophy could have a similar appearance in the correct clinical situation. 2. No areas of bony fracture or bony destruction. Assessment and Plan - Assessment (1) Gangrene of toe of right foot Code(s): I96 - Gangrene, not elsewhere classified Status: Acute - Plan I reviewed the CT with the patient, despite negative findings of the CT, it is recommended to have eradication of any and all infection to allow for the patient to move forward with vascular surgery bypass with graft to help preserve the limb. I reviewed the case with vascular who agreed with the digit amputation. I reviewed risks and benefits including but not limited to poor healing, nonhealing, possible progressive ischemic changes after surgery that may lead to transmetatarsal amputation or proximal amputation such as below the knee amputation. The patient permitted to proceed with surgery later today consent signed for incision drainage debridement with right foot second digit amputation. The patient is n.p.o. at this point I will see the patient later today for surgery.
[2018-07-19] MEDS: Potassium Chloride 10 MEQ ER Capsule PO SCH ×2 (08:34→23:37)
[2018-07-19] MEDS: Furosemide 20 MG Tablet PO SCH (08:34)
[2018-07-19] MEDS: Gabapentin 400 MG Capsule PO SCH ×2 (08:34→23:09)
[2018-07-19] MEDS: Pantoprazole Sodium 20 MG DR Tablet PO SCH (08:34)
[2018-07-19] MEDS: Lactobacillus Acidophilus/L. Spores Tablet PO SCH ×3 (08:34→18:49)
[2018-07-19] MEDS: Morphine Inj 4 MG/ML Vial IV.PUSH PRN ×2 (09:53→13:48)
--- NOTE | 2018-07-19 14:48 | P.PNVS ---
Subjective Subjective/Hospital Course: 68-year-old male known to me from previous admissions and recent surgeries. Several weeks ago patient underwent left below-knee amputation for gangrene of the foot. Patient came to my office because he fell on his stump and noticed some drainage. On exam patient has a small area of crusting and another 1 of small dehiscence very superficial so this should heal okay In addition patient has an area of partial thickness skin loss just subpatellar away from the actual stump and this must be due to either tape or some other sort of a burn Apparently home health has been taking very poor care of patients wound and he came to my office all bundled up with dirty dressings. Apparently the wound was not taken care off, was not washed or treated in any way. While this problem has been handled examination reveals right leg problem with wet gangrene of the right second toe and perhaps the third toe as well. CTA performed in March this year reveals occluded superficial femoral artery on the right with a reconstitution of the popliteal and this patient is a candidate for femoral-popliteal bypass however he has to be first taking care of , rehydrated and should have podiatry amputation of the second toe considering the [place]-Abraham graft will be eventually placed and I do not want infection to spread to the synthetic tissues. Therefore in best case scenario patient should be stabilized placed on antibiotics have the second toe amputated and then may be by the end of the week we going to go ahead with a right femoral-popliteal bypass. Patient in addition has fairly severe distal disease with multilevel stenosis of all 3 vessels and therefore is at high risk of losing the right leg despite best care. Will follow 07/19/2018 Patient complain about pain in the right foot I have discussed this case with Dr. Gordillo and they fully support proceeding with surgery and amputation of the toe. Patient is a candidate for right femoral-popliteal bypass but I would wait for a while until the infection clears from the foot possibly early next week patient will be scheduled for right femoral-popliteal bypass Objective Vital Signs / I&O: Vital Signs 07/18/18 16:00 07/18/18 20:00 07/19/18 00:00 Temperature 97.6 F 98.1 F 97.6 F Pulse Rate 92 H 106 H 97 H Respiratory Rate 12 15 15 Blood Pressure 126/53 L 126/60 118/69 Pulse Oximetry 89 L 95 93 L 07/19/18 04:00 07/19/18 08:00 07/19/18 12:12 Temperature 97.4 F L Pulse Rate 80 Respiratory Rate 18 Blood Pressure 104/57 L Pulse Oximetry 91 L 84 L 91 L Intake & Output 07/18/18 07/19/18 07/19/18 18:59 06:59 18:59 Intake Total 1616.5 / 1616.5 312.5 / 312.5 Output Total 800 / 800 650 / 650 Balance 816.5 / 816.5 -337.5 / -337.5 Weight 78.925 kg 78.9 kg Intake: IV 1016.5 / 1016.5 312.5 / 312.5 NS Inj 1,000 ML @ 75 mls/hr IV. 654 / 654 CONT .[id number] ZULEMA Rx#:[id number] Zosyn 3.375 GM Premix 50 ML @ 100 / 100 50 / 50 100 mls/hr IV.SIG Q8H [facility]ULMEA Rx#: [id number] Vancomycin Inj 1,250 MG In NS 262.5 / 262.5 262.5 / 262.5 Inj 250 ML @ 250 mls/hr IV.SIG Q12H ZULEMA Rx#:[id number] Oral 600 / 600 Output: Urine 800 / 800 650 / 650 Other: # Voids 1 Weight On Admission 78.925 kg Laboratory Results - last 24 hr 07/18/18 18:13 Creatinine 0.82 Estimated GFR Greater than [address] 07/18/18 00:00 CONCLUSION: 1. Multiple focal lucencies seen throughout the bony structures in the foot which could be seen with prominent osteopenia. Other underlying conditions such as reflex sympathetic dystrophy could have a similar appearance in the correct clinical situation. 2. No areas of bony fracture or bony destruction.
[2018-07-19] MEDS ORDERED: Morphine Inj 4 MG/ML Vial IV.PUSH ONE (16:05)
[2018-07-19] MEDS ORDERED: Bupivacaine PF 0.25% Inj 30 ML Vial ONE (16:16)
[2018-07-19] MEDS ORDERED: Lidocaine PF 1% Inj 5 ML Syringe OTHER ONE (16:37)
[2018-07-19] MEDS ORDERED: Phenylephrine/NS 1000 MCG/10ML Syringe IV.PUSH ONE (16:37)
--- NOTE | 2018-07-19 17:30 | P.BOP ---
- Preoperative Diagnosis (1) Gangrene of toe of right foot - Postoperative Diagnosis (1) Gangrene of toe of right foot Date of procedure: 07/19/18 Procedure: Right 2nd digit amputation Anesthesia: GETA Surgeon: Aba Treviño DPM Estimated blood loss (mL): 5 (mL) Pathology: none sent (right 2nd digit, margin Cx taken) Condition: stable Disposition: floor
[2018-07-19] MEDS ORDERED: fentaNYL Citrate Inj 100 MCG/2 ML Ampul ONE (17:48)
--- NOTE | 2018-07-19 18:01 | P.PN ---
Subjective Interval history: Follow up for right 2nd toe gangrene. Patient was seen in the AM. Doing well. No acute concerns. Afebrile. Waiting for surgery. In the afternoon, patient underwent 2nd right toe amputation. Post-Op, patient's oxygenation was very poor and was difficult to maintain. After receiving Lasix 40mg IV once and 125mg of Solumedrol as well as breathing treatment, patient still had hypoxia. I discussed with our night team and we decided to transfer patient to ICU or CIC for closer observation. Additional 40mg of Lasix will be given. Physical Exam Vital signs: Vital Signs 07/18/18 20:00 07/19/18 00:00 07/19/18 04:00 Temperature 98.1 F 97.6 F Pulse Rate 106 H 97 H Respiratory Rate 15 15 Blood Pressure 126/60 118/69 Pulse Oximetry 95 93 L 91 L 07/19/18 08:00 07/19/18 12:00 07/19/18 12:12 Temperature 97.4 F L 97.6 F Pulse Rate 80 92 H Respiratory Rate 18 17 Blood Pressure 104/57 L 106/60 Pulse Oximetry 84 L 78 L 91 L 07/19/18 17:58 Temperature Pulse Rate Respiratory Rate Blood Pressure Pulse Oximetry 92 L Intake & Output 07/18/18 07/19/18 07/19/18 18:59 06:59 18:59 Intake Total 1616.5 / 1616.5 862.5 / 862.5 Output Total 800 / 800 655 / 655 Balance 816.5 / 816.5 207.5 / 207.5 Weight 78.925 kg 78.9 kg Intake: IV 1016.5 / 1016.5 362.5 / 362.5 NS Inj 1,000 ML @ 75 mls/hr IV. 654 / 654 CONT .[id number] ZULEMA Rx#:[id number] Zosyn 3.375 GM Premix 50 ML @ 100 / 100 100 / 100 100 mls/hr IV.SIG Q8H ZULEMA Rx#: [id number] Vancomycin Inj 1,250 MG In NS 262.5 / 262.5 262.5 / 262.5 Inj 250 ML @ 250 mls/hr IV.SIG Q12H ZULEMA Rx#:[id number] Oral 600 / 600 Anesthesia Amount 500 / 500 Output: Urine 800 / 800 650 / 650 Estimated Blood Loss 5 / 5 Other: # Voids 1 Weight On Admission 78.925 kg Narrative: GENERAL: Alert, Oriented x 3, NAD. SKIN: Warm and dry. HEAD: Normocephalic. EYES: No scleral icterus. No injection or drainage. NECK: Supple, trachea midline. No JVD or lymphadenopathy. CARDIOVASCULAR: Regular rate and rhythm without murmurs, gallops, or rubs. RESPIRATORY: Breath sounds equal bilaterally. No accessory muscle use. GASTROINTESTINAL: Abdomen soft, non-tender, nondistended. MUSCULOSKELETAL: No cyanosis, or edema. Right 2nd toe gangrenous BACK: Nontender without obvious deformity. No CVA tenderness. Results - Labs CBC & Chem 7: 07/18/18 18:13 Laboratory Results - last 24 hr 07/18/18 18:13 Creatinine 0.82 Estimated GFR Greater than 89 - Imaging Impressions Foot CT 07/18/18 00:00 CONCLUSION: 1. Multiple focal lucencies seen throughout the bony structures in the foot which could be seen with prominent osteopenia. Other underlying conditions such as reflex sympathetic dystrophy could have a similar appearance in the correct clinical situation. 2. No areas of bony fracture or bony destruction. Assessment and Plan - Assessment (1) Gangrene of right foot Code(s): I96 - Gangrene, not elsewhere classified Status: Acute - Plan Mr. Wang is a 68-year-old male with a history of peripheral vascular disease and had a left lower extremity amputation (BKA) on 06/23/2018. He developed gangrene of his right 2nd toe. Podiatry and vascular surgery were consulted. Right 2nd toe gangrene - s/p Amputation of 2nd toe (right). - Currently on Vancomycin and Zosyn. Congestive heart failure - likely diastolic. -Continue Carvedilol 3.125mg BID. -Will d/c PO lasix and start Lasix 40mg BID IV. -Will order 2D echo limited Hyperlipidemia - continue statin. Full code. When okay with Podiatry, we can start Lovenox.
--- NOTE | 2018-07-19 18:15 | MP ---
cc: Aba Gordillo DPM DATE OF OPERATION: 07/19/2018 PREOPERATIVE DIAGNOSIS: Right second digit gangrene. POSTOPERATIVE DIAGNOSIS: Right second digit gangrene. PROCEDURE PERFORMED: Right second digit amputation. ANESTHESIA: General, local 0.25% Marcaine plain, 10 mL ESTIMATED BLOOD LOSS: Less than 5 mL TOURNIQUET: None. SPECIMENS: 1. Digit for routine pathological analysis. 2. Deep culture at amputation site including second metatarsal head culture. COMPLICATIONS: None. DISPOSITION: Returned to floor. Await for clearing of infection with anticipation for vascular intervention JUSTIFICATION FOR PROCEDURE: A 68-year-old male who has worsening right foot second digit who was admitted to the hospital. The patient continues to have proximal vascular occlusion, which needs intervention, a staged procedure of removing the infected digit in preparation for a [place]-Abraham graft per vascular. No guarantees given or implied regarding the outcome. The patient understood there may be poor healing, need for more surgery at a later date including limited to a partial foot amputation with possible [id number] amputation. The patient wished for all limb salvage efforts, but agreed to a second digit amputation. PROCEDURE IN DETAIL: Under mild sedation, the patient was brought to the operating room, placed on the operating table in supine position. Following the induction of general anesthesia, the right lower extremity was then scrubbed, prepped and draped in the usual aseptic fashion. The foot was elevated and examined. There was noted to be near circumferential fibrotic desiccated necrotic tissue of the dorsal lateral and plantar aspect of PIPJ of the right second digit. At the base of the digit, there appears to be somewhat normal skin; however, hard in texture. A fish mouth type incision took place. Sharp and blunt dissection was carried down beyond the extensor and flexor tendon. There was noted to be punctate bleeding. Bovie and ligation took place at venous structures as deemed appropriate. Sharp elliptical incisional debridement took place at the level of the second MPJ joint capsule and the toe was disarticulated in toto. Upon inspecting the deep tissues at the margin, they appeared to be viable. A deep culture was taken at this level. The wound was flushed with copious amounts of normal saline. Skin was then loosely coapted utilizing nylon. A bulky bandage applied. The patient was transferred from OR to PACU with all vital signs stable. The patient will be heel transfer weightbear only. The patient will await wound inspection over the next 2-3 days with possible vascular intervention per Dr. Glen Luciano possibly early next week. NIKITA Sinha/zachary , 05:34 PM , 05:42 PM
[2018-07-19] MEDS ORDERED: MethylPREDNISolone Sod Succinate Inj 125 MG/2 ML Vial IV.PUSH ONE (18:37)
[2018-07-19] MEDS ORDERED: *morphine SULFATE 4 MG/ML PERIprocedure ONLY ONE ×2 (18:41→20:15)
--- NOTE | 2018-07-19 19:42 | XR ---
EXAM DATE: 07/19/2018 12:00 AM EDT AGE/SEX: 68 years / Male INDICATIONS: Post op dyspnea. CLINICAL DATA: This is the patient's initial encounter. Patient reports that signs and symptoms have been present for 1 day and indicates a pain score of Nonresponsive. MEDICAL/SURGICAL HISTORY: Non-responsive. Non-responsive. COMPARISON: C, CHEST 1V SINGLE AP, 06/19/2018. . FINDINGS: Spinal stimulator lead overlies the mid thoracic spine. There is diffuse interstitial opacity bilater ally. There is patchy left basilar airspace disease. Aortic calcification is noted and cardiomegaly. CONCLUSION: Interstitial prominence again noted with developing left basilar airspace disease and atelectasis. Electronically signed by: Gregorio Espinoza MD 07/19/2018 7:41 PM EDT
[2018-07-19 20:48] LABS: ABG Base Excess -0.3 mmol/L (-2-2); ABG PCO2 39 mmHg (38-42); ABG PO2 65 mmHG (61-120)
[2018-07-19] MEDS: Sodium Chloride 0.9% 2 ML Flush BID IV.FLUSH SCH (23:07)
[2018-07-19] MEDS: Budesonide-Formoterol 160/4.5 MCG 6 GM Inhaler INH SCH (23:09)
[2018-07-20] MEDS: Piperacil/Tazo 3.375 GM Premix 50 ML IV.SIG SCH ×3 (03:01→17:54)
[2018-07-20] MEDS ORDERED: Pharmacy Ordered Lab Info OTHER ONE (05:45)
[2018-07-20 06:45] LABS: Glomerular Filtration Rate Greater Than 89 mL/min (>89)
[2018-07-20 06:46] LABS: Vancomycin,Trough 10.3 mcg/mL (5.0-10.0)
[2018-07-20] MEDS: Vancomycin Inj 1,250 MG in Sodium Chlor 0.9% Inj 250 ML IV.SIG SCH ×3 (07:04→18:36)
[2018-07-20] MEDS: Mupirocin 2% Nasal Oint Topical Syringe EACH NARE SCH ×2 (09:07→20:51)
[2018-07-20] MEDS: Gabapentin 400 MG Capsule PO SCH ×2 (09:07→20:51)
[2018-07-20] MEDS: Potassium Chloride 10 MEQ ER Capsule PO SCH ×2 (09:07→20:51)
[2018-07-20] MEDS: Lactobacillus Acidophilus/L. Spores Tablet PO SCH ×3 (09:10→17:54)
[2018-07-20] MEDS: Pantoprazole Sodium 20 MG DR Tablet PO SCH (09:12)
[2018-07-20] MEDS: Sod Chloride 0.9% Inj 1,000 ML IV.CONT SCH (10:00)
[2018-07-20] MEDS: Sodium Chloride 0.9% 2 ML Flush BID IV.FLUSH SCH ×2 (10:03→20:51)
[2018-07-20] MEDS: Budesonide-Formoterol 160/4.5 MCG 6 GM Inhaler INH SCH ×2 (12:09→20:52)
--- NOTE | 2018-07-20 14:44 | P.PNVS ---
Subjective Subjective/Hospital Course: 68-year-old male known to me from previous admissions and recent surgeries. Several weeks ago patient underwent left below-knee amputation for gangrene of the foot. Patient came to my office because he fell on his stump and noticed some drainage. On exam patient has a small area of crusting and another 1 of small dehiscence very superficial so this should heal okay In addition patient has an area of partial thickness skin loss just subpatellar away from the actual stump and this must be due to either tape or some other sort of a burn Apparently home health has been taking very poor care of patients wound and he came to my office all bundled up with dirty dressings. Apparently the wound was not taken care off, was not washed or treated in any way. While this problem has been handled examination reveals right leg problem with wet gangrene of the right second toe and perhaps the third toe as well. CTA performed in March this year reveals occluded superficial femoral artery on the right with a reconstitution of the popliteal and this patient is a candidate for femoral-popliteal bypass however he has to be first taking care of , rehydrated and should have podiatry amputation of the second toe considering the [place]-Abraham graft will be eventually placed and I do not want infection to spread to the synthetic tissues. Therefore in best case scenario patient should be stabilized placed on antibiotics have the second toe amputated and then may be by the end of the week we going to go ahead with a right femoral-popliteal bypass. Patient in addition has fairly severe distal disease with multilevel stenosis of all 3 vessels and therefore is at high risk of losing the right leg despite best care. Will follow 07/19/2018 Patient complain about pain in the right foot I have discussed this case with Dr. Gordillo and they fully support proceeding with surgery and amputation of the toe. Patient is a candidate for right femoral-popliteal bypass but I would wait for a while until the infection clears from the foot possibly early next week patient will be scheduled for right femoral-popliteal bypass 07/20/2018 Patient underwent toe amputation as per Dr. Gordillo He is now stable awake alert and oriented and waiting for a bed on the floor All things equal will take patient next week for right femoral-popliteal bypass to maximize the blood flow to the right foot and aid in healing of this If the small vessel disease is severe enough this patient will not heal the wound no matter what but every effort should be made to preserve the flow and the remainder of the foot Objective Vital Signs / I&O: Vital Signs 07/19/18 16:00 07/19/18 17:40 07/19/18 17:41 Temperature 98.1 F 98.0 F Pulse Rate 80 86 88 Respiratory Rate 17 14 Blood Pressure 104/59 L 119/57 L Pulse Oximetry 79 L 96 95 07/19/18 17:42 07/19/18 17:45 07/19/18 17:58 Temperature Pulse Rate 88 88 Respiratory Rate 15 15 Blood Pressure 113/58 L 106/59 L Pulse Oximetry 94 L 91 L 92 L 07/19/18 18:00 07/19/18 18:10 07/19/18 18:15 Temperature Pulse Rate 84 89 Respiratory Rate 14 16 Blood Pressure 127/62 130/61 Pulse Oximetry 88 L 95 86 L 07/19/18 18:25 07/19/18 18:30 07/19/18 18:32 Temperature Pulse Rate 89 Respiratory Rate 17 Blood Pressure 127/66 Pulse Oximetry 89 L 89 L 89 L 07/19/18 18:40 07/19/18 18:41 07/19/18 18:45 Temperature Pulse Rate 89 Respiratory Rate 17 Blood Pressure 124/62 Pulse Oximetry 86 L 93 L 97 07/19/18 18:50 07/19/18 19:00 07/19/18 19:15 Temperature Pulse Rate 91 H 85 Respiratory Rate 10 L 17 Blood Pressure 150/81 H 117/68 Pulse Oximetry 96 96 97 07/19/18 19:30 07/19/18 19:31 07/19/18 19:45 Temperature Pulse Rate 93 H 93 H Respiratory Rate 19 16 Blood Pressure 126/73 141/82 H Pulse Oximetry 92 L 88 L 91 L 07/19/18 20:00 07/19/18 20:15 07/19/18 20:30 Temperature Pulse Rate 93 H 93 H 100 H Respiratory Rate 12 16 17 Blood Pressure 119/67 109/60 114/67 Pulse Oximetry 93 L 91 L 93 L 07/19/18 20:45 07/19/18 20:46 07/19/18 21:00 Temperature Pulse Rate 105 H 89 Respiratory Rate 17 14 Blood Pressure 126/77 88/54 L Pulse Oximetry 92 L 88 L 89 L 07/19/18 21:01 07/19/18 21:15 07/19/18 21:30 Temperature Pulse Rate 88 91 H 93 H Respiratory Rate 12 12 12 Blood Pressure 88/52 L 100/56 L 95/57 L Pulse Oximetry 91 L 90 L 07/19/18 21:45 07/19/18 22:00 07/20/18 00:00 Temperature 99.0 F Pulse Rate 93 H 90 90 Respiratory Rate 14 11 L 12 Blood Pressure 115/65 104/59 L 96/62 L Pulse Oximetry 91 L 92 L 91 L 07/20/18 00:07 07/20/18 04:00 07/20/18 08:00 Temperature 99.1 F 98.7 F Pulse Rate 75 82 Respiratory Rate 14 18 16 Blood Pressure 109/59 L 132/63 Pulse Oximetry 95 95 07/20/18 08:16 07/20/18 09:08 07/20/18 09:16 Temperature Pulse Rate 84 Respiratory Rate 16 29 H Blood Pressure Pulse Oximetry 93 L 07/20/18 11:58 07/20/18 12:00 Temperature 97.7 F Pulse Rate 79 Respiratory Rate 15 14 Blood Pressure 99/52 L Pulse Oximetry 100 Intake & Output 07/19/18 07/20/18 07/20/18 18:59 06:59 18:59 Intake Total 862.5 / 862.5 1010 / 1010 2312.5 / 2312.5 Output Total 655 / 655 2700 / 2700 Balance 207.5 / 207.5 -1690 / -1690 2312.5 / 2312.5 Weight 63.8 kg Intake: IV 362.5 / 362.5 50 / 50 2312.5 / 2312.5 LR 1000 mL Inj 1,000 ML @ 30 1000 / 1000 mls/hr IV.SIG .Q24H ZULEMA Rx#: [id number] Zosyn 3.375 GM Premix 50 ML @ 100 / 100 50 / 50 50 / 50 100 mls/hr IV.SIG Q8H ZULEMA Rx#: [id number] Vancomycin Inj 1,250 MG In NS 262.5 / 262.5 262.5 / 262.5 Inj 250 ML @ 250 mls/hr IV.SIG Q12H ZULEMA Rx#:[id number] Oral 960 / 960 Anesthesia Amount 500 / 500 Output: Urine 650 / 650 2700 / 2700 Estimated Blood Loss 5 / 5 Laboratory Results - last 24 hr 07/19/18 07/19/18 07/20/18 20:30 22:45 05:55 Puncture Site Left radial Patient Temperature 98.6 O2 Saturation 89 L* ABG pH 7.40 ABG pCO2 39 ABG pO2 65 ABG HCO3 24 ABG O2 Content 16.0 ABG Base Excess -0.3 ABG Methemoglobin 1.3 Reynaldo Test Present Hemoglobin 12.8 Carboxyhemoglobin 1.5 O2 Delivery Device Nasal cannula Liter Flow 6.00 Critical Value Yes Creatinine 0.85 Estimated GFR Greater than 89 Nasal Screen MRSA (PCR) Mrsa detected Vancomycin Trough 10.3 H Microbiology 07/19/18 17:19 Gram Stain - Final Wound - Toe Impressions Foot CT 07/18/18 00:00 CONCLUSION: 1. Multiple focal lucencies seen throughout the bony structures in the foot which could be seen with prominent osteopenia. Other underlying conditions such as reflex sympathetic dystrophy could have a similar appearance in the correct clinical situation. 2. No areas of bony fracture or bony destruction. Chest X-Ray 07/19/18 00:00 CONCLUSION: Interstitial prominence again noted with developing left basilar airspace disease and atelectasis.
--- NOTE | 2018-07-20 17:05 | ECHRPT ---
Indication: HEART FAILURE CONCLUSIONS Normal left ventricular size and wall thickness. The left ventricular systolic function is normal wi th an estimated ejection fraction in the range of 60-65%. Normal wall motion. Mild mitral annular calcification is present. Possible minimal anterior mitral leaflet prolapse. Trileaflet aortic valve. Possible minimal leaflet sclerosis. BP: / HR: Rhythm: MEASUREMENTS (Male / Female) Normal Values Technical Quality: 2D ECHO LV Diastolic Diameter PLAX 4.2 cm 4.2 - 5.9 / 3.9 - 5.3 cm LV Systolic Diameter PLAX 3.4 cm IVS Diastolic Thickness 0.7 cm 0.6 - 1.0 / 0.6 - 0.9 cm LVPW Diastolic Thickness 0.6 cm 0.6 - 1.0 / 0.6 - 0.9 cm LV Relative Wall Thickness 0.3 RV Internal Dim ED PLAX 2.1 cm DOPPLER TR Peak Velocity 235.5 cm/s TR Peak Gradient 22.2 mmHg Right Atrial Pressure 10.0 mmHg Pulmonary Artery Systolic Pressu 32.2 mmHg Right Ventricular Systolic Press 32.2 mmHg FINDINGS LEFT VENTRICLE Normal left ventricular size and wall thickness. The left ventricular systolic function is normal wi th an estimated ejection fraction in the range of 60-65%. Normal wall motion. RIGHT VENTRICLE Normal right ventricular size and systolic function. LEFT ATRIUM The left atrial size is normal. RIGHT ATRIUM The right atrial size is normal. ATRIAL SEPTUM Normal atrial septal thickness without atrial level shunting by limited color doppler interrogation. AORTA The aortic root and proximal ascending aorta are normal in size on limited imaging. MITRAL VALVE Mild mitral annular calcification is present. Possible minimal anterior mitral leaflet prolapse. AORTIC VALVE Trileaflet aortic valve. Possible minimal leaflet sclerosis. TRICUSPID VALVE Structurally normal tricuspid valve. No tricuspid valve stenosis or regurgitation. PULMONARY VALVE No pulmonary valve regurgitation or stenosis. VESSELS The inferior vena cava is normal in size. PERICARDIUM No pericardial effusion. Kb Urban MD (Electronically Signed) Final Date:20 July 2018 17:04
--- NOTE | 2018-07-20 17:24 | P.PN ---
Subjective Interval history: Follow up for right 2nd toe gangrene and acute respiratory failure. Currently doing well. He is requiring significant amount of oxygen to maintain O2 saturation above 90%. He denies any chest pain, fever or chills. Physical Exam Vital signs: Vital Signs 07/19/18 17:40 07/19/18 17:41 07/19/18 17:42 Temperature 98.0 F Pulse Rate 86 88 88 Respiratory Rate 14 15 Blood Pressure 119/57 L 113/58 L Pulse Oximetry 96 95 94 L 07/19/18 17:45 07/19/18 17:58 07/19/18 18:00 Temperature Pulse Rate 88 84 Respiratory Rate 15 14 Blood Pressure 106/59 L 127/62 Pulse Oximetry 91 L 92 L 88 L 07/19/18 18:10 07/19/18 18:15 07/19/18 18:25 Temperature Pulse Rate 89 Respiratory Rate 16 Blood Pressure 130/61 Pulse Oximetry 95 86 L 89 L 07/19/18 18:30 07/19/18 18:32 07/19/18 18:40 Temperature Pulse Rate 89 Respiratory Rate 17 Blood Pressure 127/66 Pulse Oximetry 89 L 89 L 86 L 07/19/18 18:41 07/19/18 18:45 07/19/18 18:50 Temperature Pulse Rate 89 Respiratory Rate 17 Blood Pressure 124/62 Pulse Oximetry 93 L 97 96 07/19/18 19:00 07/19/18 19:15 07/19/18 19:30 Temperature Pulse Rate 91 H 85 Respiratory Rate 10 L 17 Blood Pressure 150/81 H 117/68 Pulse Oximetry 96 97 92 L 07/19/18 19:31 07/19/18 19:45 07/19/18 20:00 Temperature Pulse Rate 93 H 93 H 93 H Respiratory Rate 19 16 12 Blood Pressure 126/73 141/82 H 119/67 Pulse Oximetry 88 L 91 L 93 L 07/19/18 20:15 07/19/18 20:30 07/19/18 20:45 Temperature Pulse Rate 93 H 100 H Respiratory Rate 16 17 Blood Pressure 109/60 114/67 Pulse Oximetry 91 L 93 L 92 L 07/19/18 20:46 07/19/18 21:00 07/19/18 21:01 Temperature Pulse Rate 105 H 89 88 Respiratory Rate 17 14 12 Blood Pressure 126/77 88/54 L 88/52 L Pulse Oximetry 88 L 89 L 91 L 07/19/18 21:15 07/19/18 21:30 07/19/18 21:45 Temperature Pulse Rate 91 H 93 H 93 H Respiratory Rate 12 12 14 Blood Pressure 100/56 L 95/57 L 115/65 Pulse Oximetry 90 L 91 L 07/19/18 22:00 07/20/18 00:00 07/20/18 00:07 Temperature 99.0 F Pulse Rate 90 90 Respiratory Rate 11 L 12 14 Blood Pressure 104/59 L 96/62 L Pulse Oximetry 92 L 91 L 07/20/18 04:00 07/20/18 08:00 07/20/18 08:16 Temperature 99.1 F 98.7 F Pulse Rate 75 82 Respiratory Rate 18 16 Blood Pressure 109/59 L 132/63 Pulse Oximetry 95 95 93 L 07/20/18 09:08 07/20/18 09:16 07/20/18 11:58 Temperature Pulse Rate 84 Respiratory Rate 16 29 H 15 Blood Pressure Pulse Oximetry 07/20/18 12:00 07/20/18 16:00 Temperature 97.7 F 98.1 F Pulse Rate 79 84 Respiratory Rate 14 16 Blood Pressure 99/52 L 114/55 L Pulse Oximetry 100 100 Intake & Output 07/19/18 07/20/18 07/20/18 18:59 06:59 18:59 Intake Total 862.5 / 862.5 1010 / 1010 2312.5 / 2312.5 Output Total 655 / 655 2700 / 2700 Balance 207.5 / 207.5 -1690 / -1690 2312.5 / 2312.5 Weight 63.8 kg Intake: IV 362.5 / 362.5 50 / 50 2312.5 / 2312.5 LR 1000 mL Inj 1,000 ML @ 30 1000 / 1000 mls/hr IV.SIG .Q24H [facility] Rx#: [id number] Zosyn 3.375 GM Premix 50 ML @ 100 / 100 50 / 50 50 / 50 100 mls/hr IV.SIG Q8H [facility] Rx#: [id number] Vancomycin Inj 1,250 MG In NS 262.5 / 262.5 262.5 / 262.5 Inj 250 ML @ 250 mls/hr IV.SIG Q12H [facility] Rx#:[id number] Oral 960 / 960 Anesthesia Amount 500 / 500 Output: Urine 650 / 650 2700 / 2700 Estimated Blood Loss 5 / 5 Narrative: GENERAL: Alert, Oriented x 3, NAD. SKIN: Warm and dry. HEAD: Normocephalic. EYES: No scleral icterus. No injection or drainage. NECK: Supple, trachea midline. No JVD or lymphadenopathy. CARDIOVASCULAR: Regular rate and rhythm without murmurs, gallops, or rubs. RESPIRATORY: Moderate air entry, no accessory muscle use. GASTROINTESTINAL: Abdomen soft, non-tender, nondistended. MUSCULOSKELETAL: No cyanosis, or edema. Right 2nd toe gangrenous BACK: Nontender without obvious deformity. No CVA tenderness. Results - Labs CBC & Chem 7: 07/20/18 05:55 Laboratory Results - last 24 hr 07/19/18 07/19/18 07/20/18 20:30 22:45 05:55 Puncture Site Left radial Patient Temperature 98.6 O2 Saturation 89 L* ABG pH 7.40 ABG pCO2 39 ABG pO2 65 ABG HCO3 24 ABG O2 Content 16.0 ABG Base Excess -0.3 ABG Methemoglobin 1.3 Erynaldo Test Present Hemoglobin 12.8 Carboxyhemoglobin 1.5 O2 Delivery Device Nasal cannula Liter Flow 6.00 Critical Value Yes Creatinine 0.85 Estimated GFR Greater than 89 Nasal Screen MRSA (PCR) Mrsa detected Vancomycin Trough 10.3 H Microbiology 07/19/18 17:19 Wound - Toe Fungal Smear - Final No fungal elements seen 07/19/18 17:19 Wound - Toe Gram Stain - Final 07/19/18 17:19 Wound - Toe Wound Culture - Preliminary - Imaging Impressions Chest X-Ray 07/19/18 00:00 CONCLUSION: Interstitial prominence again noted with developing left basilar airspace disease and atelectasis. - Procedures 07/19/2018 Right second toe amputation Assessment and Plan - Assessment (1) Gangrene of right foot Code(s): I96 - Gangrene, not elsewhere classified Status: Acute - Plan Mr. Wang is a 68-year-old male with a history of peripheral vascular disease and had a left lower extremity amputation (BKA) on 06/23/2018. He developed gangrene of his right 2nd toe. Podiatry and vascular surgery were consulted. Acute respiratory failure hypoxia -Chest x-ray findings does not correlate with profound hypoxia patient is experiencing. -We will obtain CTA pulmonary. Also obtain CBC BMP and BNP today. Right 2nd toe gangrene - s/p Amputation of 2nd toe (right). - Currently on Vancomycin and Zosyn. Congestive heart failure - likely diastolic. -Continue Carvedilol 3.125mg BID. -2D echo shows normal EF. -Currently on Lasix 40 mg IV twice daily. We will switch to torsemide 20 mg daily. Hyperlipidemia - continue statin. Full code. Pt had surgery yesterday. Will start Lovenox today.
[2018-07-20 18:24] LABS: Baso % (Auto) 0.2 % (0.0-2.0); Hematocrit 34.7 % (39.0-51.0); Hemoglobin 11.4 gm/dL (13.0-17.0); Lymph % (Auto) 10.2 % (9.0-44.0); Mean Corpuscular HGB Conc 32.8 % (32.0-36.0); Mean Corpuscular Hemoglobin 28.6 pg (27.0-34.0); Mean Corpuscular Volume 87.2 fL (80.0-100.0); Mean Platelet Volume 7.6 fL (7.0-11.0); Mono # (Auto) 0.6 th/mm3 (0.0-0.9); Mono % (Auto) 6.5 % (0.0-8.0); Neut # (Auto) 8.1 th/mm3 (1.8-7.7); Neut % (Auto) 83.1 % (16.0-70.0); Platelet Count 348 th/mm3 (150-450); Red Blood Count 3.98 mil/mm3 (4.50-5.90); White Blood Count 9.8 th/mm3 (4.0-11.0)
[2018-07-20] MEDS: Enoxaparin Inj 40 MG/0.4 ML Syringe SQ SCH (18:36)
[2018-07-20 19:05] LABS: Anion Gap 9 meq/L (5-15); Blood Urea Nitrogen 12 mg/dL (7-18); Calcium 7.1 mg/dL (8.5-10.1); Carbon Dioxide 27.1 meq/L (21.0-32.0); Chloride 95 meq/L (98-107); Glomerular Filtration Rate Greater Than 89 mL/min (>89); Glucose,Random 140 mg/dL (74-106); Potassium 3.6 meq/L (3.5-5.1); Sodium 131 meq/L (136-145)
[2018-07-20 19:24] LABS: Total Protein 5.8 g/dL (6.4-8.2)
--- NOTE | 2018-07-20 19:27 | CT ---
EXAM DATE: 07/20/2018 7:01 PM EDT AGE/SEX: 68 years / Male INDICATIONS: Chest pain and shortness breath CLINICAL DATA: This is the patient's initial encounter. Patient reports that signs and symptoms have been present for 1 day and indicates a pain score of 3/10. MEDICAL/SURGICAL HISTORY: Congestive heart failure. None. RADIATION DOSE: 15.97 CTDI (mGy) COMPARISON: No prior exams available for comparison. TECHNIQUE: Volumetric scanning was performed using a multi-row detector CT scanner during bolus infu dustin of 73 ml Omnipaque 350 (iohexol) nonionic water-soluble contrast as a single exam dose. The sara a was post processed with a variety of visualization algorithms including full volume maximum intensi ty projection and sliding thin slab reformation. Using automated exposure control and adjustment of the mA and/or kV according to patient size, radiation dose was kept as low as reasonably achievable t o obtain optimal diagnostic quality images. DICOM format image data is available electronically for review and comparison. FINDINGS: There is no pulmonary embolus. Moderate to severe emphysema with chronic, basilar predominant interstitial changes noted. Mild super imposed pulmonary edema possible. There is mild dependent atelectasis of both lung bases. No pneumoni c infiltrate seen. No pleural effusion or pneumothorax. There is mediastinal lymphadenopathy, including a 16 x 29 mm AP window lymph node and 15 x 24 mm subc arinal lymph node. There are several lymph nodes in the bilateral elina measuring up to 1 cm in size. No axillary lymphadenopathy is demonstrated. Heart size within normal limits. Coronary artery calcification noted. CONCLUSION: 1. No pulmonary embolus. 2. Mild pulmonary edema possible in the proper clinical setting. Otherwise mostly chronic appearing interstitial opacities in a basilar predominant distribution No pleural effusion. 3. Moderate to severe emphysema. 4. Mild, symmetric dependent atelectasis of both lung bases. 5. Nonspecific mediastinal lymphadenopathy. Upper limits of normal hilar lymph nodes. No axillary ly mphadenopathy. Electronically signed by: Jairo Manuel MD 07/20/2018 7:26 PM EDT
--- NOTE | 2018-07-20 20:04 | P.PNPOD ---
Subjective Interval history: s/p amputation R 2nd toe 07/19/18 [facility] Physical Exam Vital signs: Vital Signs 07/19/18 20:15 07/19/18 20:30 07/19/18 20:45 Temperature Pulse Rate 93 H 100 H Respiratory Rate 16 17 Blood Pressure 109/60 114/67 Pulse Oximetry 91 L 93 L 92 L 07/19/18 20:46 07/19/18 21:00 07/19/18 21:01 Temperature Pulse Rate 105 H 89 88 Respiratory Rate 17 14 12 Blood Pressure 126/77 88/54 L 88/52 L Pulse Oximetry 88 L 89 L 91 L 07/19/18 21:15 07/19/18 21:30 07/19/18 21:45 Temperature Pulse Rate 91 H 93 H 93 H Respiratory Rate 12 12 14 Blood Pressure 100/56 L 95/57 L 115/65 Pulse Oximetry 90 L 91 L 07/19/18 22:00 07/20/18 00:00 07/20/18 00:07 Temperature 99.0 F Pulse Rate 90 90 Respiratory Rate 11 L 12 14 Blood Pressure 104/59 L 96/62 L Pulse Oximetry 92 L 91 L 07/20/18 04:00 07/20/18 08:00 07/20/18 08:16 Temperature 99.1 F 98.7 F Pulse Rate 75 82 Respiratory Rate 18 16 Blood Pressure 109/59 L 132/63 Pulse Oximetry 95 95 93 L 07/20/18 09:08 07/20/18 09:16 07/20/18 11:58 Temperature Pulse Rate 84 Respiratory Rate 16 29 H 15 Blood Pressure Pulse Oximetry 07/20/18 12:00 07/20/18 16:00 Temperature 97.7 F 98.1 F Pulse Rate 79 84 Respiratory Rate 14 16 Blood Pressure 99/52 L 114/55 L Pulse Oximetry 100 100 Intake & Output 07/20/18 07/20/18 07/21/18 06:59 18:59 06:59 Intake Total 1010 / 1010 4066.5 / 4066.5 Output Total 2700 / 2700 925 / 925 Balance -1690 / -1690 3141.5 / 3141.5 Weight 63.8 kg Intake: IV 50 / 50 2362.5 / 2362.5 LR 1000 mL Inj 1,000 ML @ 30 1000 / 1000 mls/hr IV.SIG .Q24H [facility] Rx#: [id number] Zosyn 3.375 GM Premix 50 ML @ 50 / 50 100 / 100 100 mls/hr IV.SIG Q8H [facility] Rx#: [id number] Vancomycin Inj 1,250 MG In NS 262.5 / 262.5 Inj 250 ML @ 250 mls/hr IV.SIG Q12H [facility] Rx#:[id number] Oral 960 / 960 1704 / 1704 Output: Urine 2700 / 2700 925 / 925 Narrative: right foot bandage clean, dry, intact Medications and Allergies Active Medications: Active Medications Hydrocodone Bitart/Acetaminophen ([place] 10/325) 1 tab PO Q4H PRN PRN Reason: Pain 7 to 10 Last Admin: 07/20/18 09:08 Dose: 1 tab Hydrocodone Bitart/Acetaminophen ([place] 5/325) 1 tab PO Q4H PRN PRN Reason: Pain 3 to 6 Last Admin: 07/20/18 15:51 Dose: 1 tab Al Hydroxide/Mg Hydroxide ([place]) 30 ml PO Q12H PRN PRN Reason: Mild Constipation Albuterol (Duoneb Neb (Prn)) 1 ampul NEB Q4HR NEB PRN PRN Reason: DYSPNEA Last Admin: 07/20/18 09:16 Dose: 1 ampul Atorvastatin Calcium (Lipitor) 40 mg PO HS [facility] Last Admin: 07/19/18 23:07 Dose: 40 mg Budesonide/Formoterol Fumarate (Symbicort 160/4.5 Mcg Inh) 1 puff INH BID [facility] Last Admin: 07/20/18 12:09 Dose: 1 puff Carvedilol (Coreg) 3.125 mg PO BID [facility] Last Admin: 07/20/18 09:07 Dose: 3.125 mg Chlorhexidine Gluconate (Chlorhexidine 2% Cloth) 3 pack TOPICAL DAILY@0400 [facility] Stop: 07/26/18 03:59 Chlorhexidine Gluconate (Chlorhexidine 2% Cloth) 3 pack TOPICAL DAILY@0400 PRN PRN Reason: Extra cloth needed Stop: 07/26/18 03:59 Enoxaparin Sodium (Lovenox Inj) 40 mg SQ DAILY [facility] Last Admin: 07/20/18 18:36 Dose: 40 mg Gabapentin (Neurontin) 800 mg PO BID [facility] Last Admin: 07/20/18 09:07 Dose: 800 mg Sodium Chloride (Ns Inj) 1,000 mls @ 75 mls/hr IV.CONT .[id number] [facility] Last Admin: 07/20/18 10:00 Dose: Not Given Piperacillin/Tazobactam/Dextrose (Zosyn 3.375 Gm Premix) 50 mls @ 100 mls/hr IV.SIG Q8H [facility] Last Infusion: 07/20/18 18:55 Dose: Infused Vancomycin HCl 1,250 mg/ (Sodium Chloride) 262.5 mls @ 250 mls/hr IV.SIG Q12H [facility] Last Admin: 07/20/18 18:36 Dose: 250 mls/hr Lactobacillus Acidophilus (Lactinex) 1 tab PO TID [facility] Last Admin: 07/20/18 17:54 Dose: 1 tab Morphine Sulfate (Morphine Inj) 4 mg IV.PUSH Q4H PRN PRN Reason: BREAKTHROUGH PAIN Last Admin: 07/19/18 13:48 Dose: 4 mg Mupirocin (Bactroban 2% Nasal Oint) 1 applicatio EACH NARE BID [facility] Stop: 07/24/18 21:01 Last Admin: 07/20/18 09:07 Dose: 1 applicatio Pantoprazole Sodium (Protonix) 20 mg PO DAILY [facility] Last Admin: 07/20/18 09:12 Dose: 20 mg Pharmacy Profile Note (Vancomycin Consult Pharmacy) 1 each OTHER UNSCH PRN PRN Reason: Pharmacy to dose Potassium Chloride (Kcl) 20 meq PO BID [facility] Last Admin: 07/20/18 09:07 Dose: 20 meq Sodium Chloride (Ns Flush) 2 ml IV.FLUSH BID [facility] Last Admin: 07/20/18 10:03 Dose: 2 ml Sodium Chloride (Ns Flush) 2 ml IV.FLUSH PRN PRN PRN Reason: FLUSH AFTER USING IV ACCESS Torsemide (Demadex) 20 mg PO DAILY [facility] Allergies Allergy/AdvReac Type Severity Reaction Status Date / Time No Known Allergies Allergy Verified 04/06/18 17:04 Home Medications Medication Instructions Recorded Confirmed Type omeprazole 20 mg PO DAILY 04/01/18 07/18/18 History aspirin [Ye Aspirin] 325 mg PO DAILY 06/19/18 07/18/18 History carvedilol [Coreg] 3.125 mg PO BID 06/19/18 07/18/18 History gabapentin 06/19/18 History Results - Labs CBC & Chem 7: 07/20/18 18:02 07/20/18 18:02 Laboratory Results - last 24 hr 07/19/18 07/19/18 07/20/18 20:30 22:45 05:55 WBC RBC Hgb Hct MCV MCH MCHC RDW Plt Count MPV Neut % (Auto) Lymph % (Auto) Hill % (Auto) Eos % (Auto) Baso % (Auto) Neut # (Auto) Lymph # (Auto) Hill # (Auto) Eos # (Auto) Baso # (Auto) WBC Differential Differential Comment Puncture Site Left radial Patient Temperature 98.6 O2 Saturation 89 L* ABG pH 7.40 ABG pCO2 39 ABG pO2 65 ABG HCO3 24 ABG O2 Content 16.0 ABG Base Excess -0.3 ABG Methemoglobin 1.3 Reynaldo Test Present Hemoglobin 12.8 Carboxyhemoglobin 1.5 O2 Delivery Device Nasal cannula Liter Flow 6.00 Critical Value Yes Sodium Potassium Chloride Carbon Dioxide Anion Gap BUN Creatinine 0.85 Estimated GFR Greater than 89 Random Glucose Calcium Prot Corrected Calcium Total Protein Nasal Screen MRSA (PCR) Mrsa detected Vancomycin Trough 10.3 H 07/20/18 07/20/18 18:02 18:02 WBC 9.8 RBC 3.98 L Hgb 11.4 L Hct 34.7 L MCV 87.2 MCH 28.6 MCHC 32.8 RDW 21.0 H Plt Count 348 MPV 7.6 Neut % (Auto) 83.1 H Lymph % (Auto) 10.2 Hill % (Auto) 6.5 Eos % (Auto) 0.0 Baso % (Auto) 0.2 Neut # (Auto) 8.1 H Lymph # (Auto) 1.0 Hill # (Auto) 0.6 Eos # (Auto) 0.0 Baso # (Auto) 0.0 WBC Differential . Differential Comment Auto diff final Puncture Site Patient Temperature O2 Saturation ABG pH ABG pCO2 ABG pO2 ABG HCO3 ABG O2 Content ABG Base Excess ABG Methemoglobin Reynaldo Test Hemoglobin Carboxyhemoglobin O2 Delivery Device Liter Flow Critical Value Sodium 131 L Potassium 3.6 Chloride 95 L Carbon Dioxide 27.1 Anion Gap 9 BUN 12 Creatinine 0.69 Estimated GFR Greater than 89 Random Glucose 140 H Calcium 7.1 L* Prot Corrected Calcium 7.8 L Total Protein 5.8 L Nasal Screen MRSA (PCR) Vancomycin Trough Microbiology 07/19/18 17:19 Wound - Toe Fungal Smear - Final No fungal elements seen 07/19/18 17:19 Wound - Toe Gram Stain - Final 07/19/18 17:19 Wound - Toe Wound Culture - Preliminary - Imaging Impressions Chest CTA 07/20/18 00:00 CONCLUSION: 1. No pulmonary embolus. 2. Mild pulmonary edema possible in the proper clinical setting. Otherwise mostly chronic appearing interstitial opacities in a basilar predominant distribution No pleural effusion. 3. Moderate to severe emphysema. 4. Mild, symmetric dependent atelectasis of both lung bases. 5. Nonspecific mediastinal lymphadenopathy. Upper limits of normal hilar lymph nodes. No axillary lymphadenopathy. - Procedures 07/19/2018 Right second toe amputation Assessment and Plan - Assessment (1) Gangrene of toe of right foot Code(s): I96 - Gangrene, not elsewhere classified Status: Acute Plan: Keep dressing clean, dry, intact Will assess surgical site and change bandage this weekend weightbearing as tolerated in surgical shoe right foot
[2018-07-20] MEDS: Morphine Inj 4 MG/ML Vial IV.PUSH PRN (23:04)
[2018-07-20] MEDS: Sodium Chloride 0.9% 2 ML Flush PRN IV.FLUSH (23:05)
[2018-07-21] MEDS: Piperacil/Tazo 3.375 GM Premix 50 ML IV.SIG SCH ×3 (02:48→18:30)
[2018-07-21] MEDS ORDERED: Chlorhexidine Gluconate 2% 1 Pack (2 Cloths) TOPICAL PRN (04:00)
[2018-07-21] MEDS: Chlorhexidine Gluconate 2% 1 Pack (2 Cloths) TOPICAL SCH (05:35)
[2018-07-21] MEDS: Vancomycin Inj 1,250 MG in Sodium Chlor 0.9% Inj 250 ML IV.SIG SCH ×2 (05:35→18:30)
[2018-07-21] MEDS: Morphine Inj 4 MG/ML Vial IV.PUSH PRN (05:59)
[2018-07-21] MEDS: Sodium Chloride 0.9% 2 ML Flush PRN IV.FLUSH (06:00)
[2018-07-21] MEDS: Gabapentin 400 MG Capsule PO SCH ×2 (08:43→17:59)
[2018-07-21] MEDS: Pantoprazole Sodium 20 MG DR Tablet PO SCH (08:43)
[2018-07-21] MEDS: Lactobacillus Acidophilus/L. Spores Tablet PO SCH ×3 (08:43→17:58)
[2018-07-21] MEDS: Torsemide 20 MG Tablet PO SCH (08:45)
[2018-07-21] MEDS: Enoxaparin Inj 40 MG/0.4 ML Syringe SQ SCH (08:46)
[2018-07-21] MEDS: Mupirocin 2% Nasal Oint Topical Syringe EACH NARE SCH ×2 (08:46→20:33)
[2018-07-21] MEDS: Potassium Chloride 10 MEQ ER Capsule PO SCH ×2 (09:27→20:32)
[2018-07-21] MEDS: Sodium Chloride 0.9% 2 ML Flush BID IV.FLUSH SCH ×2 (10:05→20:33)
[2018-07-21] MEDS: Budesonide-Formoterol 160/4.5 MCG 6 GM Inhaler INH SCH ×2 (10:06→20:34)
--- NOTE | 2018-07-21 12:25 | P.PNWCN ---
Wound Care Nurse Consult Description: Received consult for pressure ulcer and wound management of sacrum, buttock, scrotum, and R Lower extremity. Communicated with: RN Gail Nelson and Doctor Asia Rodriguez Recommendation: 1.Please cleanse wound to R hip with wound cleanser and pat dry. Apply optifoam gentle 4x4 dressing and change every 3 days or as needed if saturated or dislodged. 2. Please cleanse wounds to bilateral ischial areas with wound cleanser and pat dry. Please apply Antifungal powder to surrounding denuded skin with satellite lesions and wipe off excess. Then spray with cavilon skin barrier film spray. Repeat process. Apply Versatel one to over wounds Change Versatel as needed for saturation or dislodgement and encrust using Antifungal powder and cavilon spray BID and PRN. 3. Please assist patient with turning and repositioning off of bottom every 2 hours and PRN for comfort and offloading of pressure from juan prominences.Limit time in chair and positioning on back to P.T. and meals 4.Please obtain low airloss bed such as airapy from environmental or K4 from [employer] if airapy not available. Wound/Pressure Injury - Patient Status Premedicated for Pain Prior to Dressing Change: No - Wound Right Hip Wound Staging: Stage II Wound Assessment: Ongoing Wound Type: Pressure Injury Is This a Chronic Wound: No Requested from Provider a Wound Care Consult: Yes (Wouns care saw patient today) Length (cm): 1.4 (cm) Width (cm): 2 (cm) Depth (cm): 0.1 (~0.1cm) Wound Bed Appearance: [place] Wound Bed Appearance: 100% pink tissue Surrounding Tissue Appearance: [place] Surrounding Tissue Temperature: Cool Drainage Amount: None Drainage Odor: No Odor Dressing Status: Changed Cleansing Solution: Saline Cover Dressing: bordered gauze Wound Dressing Change Date: 07/21/18 Right Ischium Wound Staging: Stage III Wound Type: Pressure Injury Is This a Chronic Wound: No Requested from Provider a Wound Care Consult: Yes (Wound care saw patient today) Length (cm): 3 (~3cm) Width (cm): 2 (~2cm) Depth (cm): 0.2 (~0.2cm) Wound Bed Appearance: [place], Yellow Wound Bed Appearance: Wound bed presents with ~80% pink tissue and ~20% thin layer of yellow tissue Surrounding Tissue Appearance: Erythema (Periwound presents with erythematous, blanchable, peeling denuded skin with satellite lesions) Surrounding Tissue Temperature: Warm Drainage Amount: None Drainage Odor: No Odor Dressing Status: Changed Cleansing Solution: Saline Topical: cavilon skin barrier film to protect surrounding skin Cover Dressing: bordered gauze Wound Dressing Change Date: 07/21/18 Wound Margin Description: Wound margins are well defined, but irregular Left Ischium Wound Staging: Stage III Wound Type: Pressure Injury Is This a Chronic Wound: No Requested from Provider a Wound Care Consult: Yes (Wound care saw patient today) Length (cm): 4 (~4cm) Width (cm): 1 (~1cm) Depth (cm): 0.2 (~0.2cm) Wound Bed Appearance: [place], Yellow Wound Bed Appearance: Wound to L ischium area is actually three wounds in a linear pattern that are in close proximity to each other measured as one. Wounds present with ~80% pink tissue and ~20% thin yellow tissue. All wounds are dry. Periwound presents with erythematous, blanchable, peeling denuded skin. Surrounding Tissue Appearance: Erythema (Periwound presents with erythematous, blanchable, peeling denuded skin, with satellite lesions.) Surrounding Tissue Temperature: Warm Drainage Amount: None Drainage Odor: No Odor Dressing Status: Changed Cleansing Solution: Saline Topical: cavilon to surrounding skin Primary Dressing: Versatel Cover Dressing: bordered gauze Wound Dressing Change Date: 07/21/18 Wound Margin Description: Wound margins are well defined and irregular - Additional Information Patient seen on [address] [place] [address] for evaluation of wound management, and possible pressure ulcer management to Sacrum, buttock, scrotum, and R lower extremity.Patient is laying in [place] [facility] bed. Patient was able to position self with moderate assistance from senior mortgage underwriter to L side. Removed dressing to R hip to reveal wound with mixed etiology of pressure and friction. Wound is a stage 2 pressure injury, full description and measurements noted above. Wound was cleansed with normal saline and patted dry. Covered wound with 4x4 bordered gauze. Assessed buttock area next. Buttock area is noted with Calazime skin protectant paste in place. Patient was cleansed with soft bath wipe to remove Calazime. Wounds were then visualized over R and L ischial areas. Wounds were cleansed with normal saline. Wounds presents with mixed etiology of moisture and pressure.Per patient he sits a lot at home and wears a brief. Full wound description and measurements are noted above. Periwound presents with denuded, blanchable erythematous, peeling skin, with satellite lesions noted to the outer borders of erythema, indicating fungal etiology. Wounds appear to be stage 3 pressure injuries. Applied Cavilon wipe to periwound. Patient complains of wounds sticking to underpads .Covered R ischial with bordered gauze. Applied Versatel over wounds measured as one wound to L ischium and secured in bordered gauze versatel. These dressings are temporary. Recommendations for dressing changes are noted above.
--- NOTE | 2018-07-21 16:05 | P.DIET ---
Nutritional Evaluation Type of nutrition evaluation: initial Nutrition screening: [facility] (Wounds stage 3) Subjective Subjective Comments: Eating 100%. Objective - Diagnosis R Foot Gangrene - Objective Part of Body Amputated: Left below knee (6%) % IBW: 102 (IBW = 145#) Body Weight Used for Calculations: Actual (66.9 kg) Energy Needs - Lower Range (kCal/kg): 30 Energy Needs - Upper Range (kCal/kg): 35 Lower Limit kCal/kg (kCals): 2,007 Upper Limit kCal/kg (kCals): 2,342 Lower Limit Protein Factor (Grams per Kg): 1.2 Upper Limit Protein Factor (Grams per Kg): 1.5 Lower Protein Needs (Protein): 80 Upper Protein Needs (Protein): 100 Dietitian Reviewed in Medical Record: Current diet, Curent medications, Intake & Output, Labs, Medical history, Wound/DTI Oral Diet Intake Amount: Excellent 90%+ Wound Care Note: See WOCN dated 07/21: 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 PO intake is currently good. Will send Glucerna Shakes on trays to provide 220 kcals and 10 gms protein per 8 oz serving. Also recommend the addition of a daily MVI/min to aid in healing. RD will follow. Recommendations: 1. Change diet to 1999 ADA 2. Glucerna Shakes tid 3. Please order a daily MVI/min Dietitian to Monitor: Lab values, Supplement acceptance, Intake & Output, Weight change, PO Intake, Wound/skin status, Medical course
[2018-07-22] MEDS: Piperacil/Tazo 3.375 GM Premix 50 ML IV.SIG SCH ×3 (01:31→18:02)
[2018-07-22] MEDS: Chlorhexidine Gluconate 2% 1 Pack (2 Cloths) TOPICAL SCH (05:23)
[2018-07-22] MEDS ORDERED: Pharmacy Ordered Lab Info OTHER ONE (05:45)
[2018-07-22] MEDS: Vancomycin Inj 1,250 MG in Sodium Chlor 0.9% Inj 250 ML IV.SIG SCH (06:17)
[2018-07-22 06:36] LABS: Glomerular Filtration Rate Greater Than 89 mL/min (>89)
[2018-07-22 06:37] LABS: Vancomycin,Trough 27.6 mcg/mL (5.0-10.0)
[2018-07-22] MEDS: Morphine Inj 4 MG/ML Vial IV.PUSH PRN ×3 (08:35→22:55)
[2018-07-22] MEDS: Gabapentin 400 MG Capsule PO SCH ×3 (08:36→18:02)
[2018-07-22] MEDS: Sodium Chloride 0.9% 2 ML Flush BID IV.FLUSH SCH ×2 (08:36→21:25)
[2018-07-22] MEDS: Enoxaparin Inj 40 MG/0.4 ML Syringe SQ SCH (08:36)
[2018-07-22] MEDS: Potassium Chloride 10 MEQ ER Capsule PO SCH ×2 (08:36→21:22)
[2018-07-22] MEDS: Lactobacillus Acidophilus/L. Spores Tablet PO SCH ×3 (08:36→18:02)
[2018-07-22] MEDS: Pantoprazole Sodium 20 MG DR Tablet PO SCH (08:36)
[2018-07-22] MEDS: Torsemide 20 MG Tablet PO SCH (10:12)
[2018-07-22] MEDS: Budesonide-Formoterol 160/4.5 MCG 6 GM Inhaler INH SCH ×2 (10:13→21:25)
[2018-07-22] MEDS: Mupirocin 2% Nasal Oint Topical Syringe EACH NARE SCH ×2 (10:15→21:22)
--- NOTE | 2018-07-22 13:39 | P.PN ---
Subjective Interval history: Follow up right second toe gangrene 07/22/18-Patient seen and examined; complains of poorly controlled pain, Afebrile Physical Exam Vital signs: Vital Signs 07/21/18 13:50 07/21/18 16:00 07/21/18 20:00 Temperature 97.9 F 98.1 F Pulse Rate 82 85 Respiratory Rate 18 20 20 Blood Pressure 105/60 122/62 Pulse Oximetry 95 91 L 07/21/18 23:40 07/22/18 00:00 07/22/18 08:00 Temperature 98.1 F 97.8 F Pulse Rate 88 88 Respiratory Rate 18 18 18 Blood Pressure 106/57 L 134/70 Pulse Oximetry 96 92 L 07/22/18 09:51 Temperature Pulse Rate Respiratory Rate 17 Blood Pressure Pulse Oximetry Intake & Output 07/21/18 07/22/18 07/22/18 18:59 06:59 18:59 Intake Total 50 / 50 892.5 / 892.5 50 / 50 Output Total 450 / 450 Balance 50 / 50 442.5 / 442.5 50 / 50 Weight 68.8 kg Intake: IV 50 / 50 412.5 / 412.5 50 / 50 Zosyn 3.375 GM Premix 50 ML @ 50 / 50 100 / 100 50 / 50 100 mls/hr IV.SIG Q8H [facility] Rx#: [id number] Vancomycin Inj 1,250 MG In NS 312.5 / 312.5 Inj 250 ML @ 250 mls/hr IV.SIG Q12H [facility] Rx#:[id number] Oral 480 / 480 Output: Urine 450 / 450 Other: Date of Last Bowel Movement 07/21/18 07/21/18 07/21/18 Narrative: GENERAL: Alert, Oriented x 3, NAD. SKIN: Warm and dry. HEAD: Normocephalic. EYES: No scleral icterus. No injection or drainage. NECK: Supple, trachea midline. No JVD or lymphadenopathy. CARDIOVASCULAR: Regular rate and rhythm without murmurs, gallops, or rubs. RESPIRATORY: Moderate air entry, no accessory muscle use. GASTROINTESTINAL: Abdomen soft, non-tender, nondistended. MUSCULOSKELETAL: No cyanosis, or edema. dressing over right foot as well as right L BKA stump BACK: Nontender without obvious deformity. No CVA tenderness. Results - Labs CBC & Chem 7: 07/20/18 18:02 07/22/18 05:45 Laboratory Results - last 24 hr 07/22/18 05:45 Creatinine 0.64 Estimated GFR Greater than 89 Vancomycin Trough 27.6 H Microbiology 07/19/18 17:19 Wound - Toe Gram Stain - Final 07/19/18 17:19 Wound - Toe Wound Culture - Final S. aureus MRSA 07/19/18 17:19 Wound - Toe Acid Fast Bacilli Smear - Final No acid fast bacilli seen 07/19/18 17:19 Wound - Toe Fungal Smear - Final No fungal elements seen - Procedures 07/19/2018 Right second toe amputation Assessment and Plan - Assessment (1) Gangrene of right foot Code(s): I96 - Gangrene, not elsewhere classified Status: Acute - Plan 68 years old man with Acute respiratory failure hypoxia-improving. -CTA pulmonary negative for PE Right 2nd toe gangrene - s/p Amputation of 2nd toe (right). - Currently on Vancomycin and Zosyn. Management per podiatry Diastolic congestive heart failure -Continue Carvedilol 3.125mg BID. -2D echo shows normal EF. -Currently torsemide 20 mg daily. Hyperlipidemia - continue statin.
--- NOTE | 2018-07-22 22:39 | P.PNPOD ---
Physical Exam Vital signs: Vital Signs 07/21/18 23:40 07/22/18 00:00 07/22/18 08:00 Temperature 98.1 F 97.8 F Pulse Rate 88 88 Respiratory Rate 18 18 18 Blood Pressure 106/57 L 134/70 Pulse Oximetry 96 92 L 07/22/18 09:51 07/22/18 12:00 07/22/18 14:04 Temperature 97.8 F Pulse Rate 91 H Respiratory Rate 17 18 17 Blood Pressure 111/55 L Pulse Oximetry 93 L 07/22/18 16:00 07/22/18 20:00 Temperature 98.4 F 98.1 F Pulse Rate 78 95 H Respiratory Rate 20 18 Blood Pressure 128/67 110/60 Pulse Oximetry 98 94 L Intake & Output 07/22/18 07/22/18 07/23/18 06:59 18:59 06:59 Intake Total 892.5 / 892.5 100 / 100 Output Total 450 / 450 300 / 300 Balance 442.5 / 442.5 -200 / -200 Weight 68.8 kg Intake: IV 412.5 / 412.5 100 / 100 Zosyn 3.375 GM Premix 50 ML @ 100 / 100 100 / 100 100 mls/hr IV.SIG Q8H [facility] Rx#: [id number] Vancomycin Inj 1,250 MG In NS 312.5 / 312.5 Inj 250 ML @ 250 mls/hr IV.SIG Q12H [facility] Rx#:[id number] Oral 480 / 480 Output: Urine 450 / 450 300 / 300 Other: Date of Last Bowel Movement 07/21/18 07/21/18 Narrative: Right foot with sutures intact to 2nd toe amputation site. No drainage present. No edema, no erythema. No purulence. Medications and Allergies Active Medications: Active Medications Hydrocodone Bitart/Acetaminophen ([place] 10/325) 1 tab PO Q4H PRN PRN Reason: Pain 7 to 10 Last Admin: 07/22/18 21:22 Dose: 1 tab Hydrocodone Bitart/Acetaminophen ([place] 5/325) 1 tab PO Q4H PRN PRN Reason: Pain 3 to 6 Last Admin: 07/20/18 15:51 Dose: 1 tab Al Hydroxide/Mg Hydroxide (Milk Of Magnesia Liq) 30 ml PO Q12H PRN PRN Reason: Mild Constipation Albuterol (Duoneb Neb (Prn)) 1 ampul NEB Q4HR NEB PRN PRN Reason: DYSPNEA Last Admin: 07/20/18 09:16 Dose: 1 ampul Atorvastatin Calcium (Lipitor) 40 mg PO HS [facility] Last Admin: 07/22/18 21:22 Dose: 40 mg Budesonide/Formoterol Fumarate (Symbicort 160/4.5 Mcg Inh) 1 puff INH BID [facility] Last Admin: 07/22/18 21:25 Dose: 1 puff Carvedilol (Coreg) 3.125 mg PO BID [facility] Last Admin: 07/22/18 21:22 Dose: 3.125 mg Chlorhexidine Gluconate (Chlorhexidine 2% Cloth) 3 pack TOPICAL DAILY@0400 [facility] Stop: 07/26/18 03:59 Last Admin: 07/22/18 05:23 Dose: Not Given Chlorhexidine Gluconate (Chlorhexidine 2% Cloth) 3 pack TOPICAL DAILY@0400 PRN PRN Reason: Extra cloth needed Stop: 07/26/18 03:59 Enoxaparin Sodium (Lovenox Inj) 40 mg SQ DAILY [facility] Last Admin: 07/22/18 08:36 Dose: 40 mg Gabapentin (Neurontin) 400 mg PO TID [facility] Last Admin: 07/22/18 18:02 Dose: 400 mg Sodium Chloride (Ns Inj) 1,000 mls @ 75 mls/hr IV.CONT .[id number] [facility] Last Admin: 07/20/18 10:00 Dose: Not Given Piperacillin/Tazobactam/Dextrose (Zosyn 3.375 Gm Premix) 50 mls @ 100 mls/hr IV.SIG Q8H [facility] Last Infusion: 07/22/18 18:38 Dose: Infused Vancomycin HCl 1,250 mg/ (Sodium Chloride) 262.5 mls @ 250 mls/hr IV.SIG Q12H [facility] Last Infusion: 07/22/18 06:52 Dose: Infused Lactobacillus Acidophilus (Lactinex) 1 tab PO TID [facility] Last Admin: 07/22/18 18:02 Dose: 1 tab Morphine Sulfate (Morphine Inj) 4 mg IV.PUSH Q4H PRN PRN Reason: BREAKTHROUGH PAIN Last Admin: 07/22/18 12:58 Dose: 4 mg Mupirocin (Bactroban 2% Nasal Oint) 1 applicatio EACH NARE BID [facility] Stop: 07/24/18 21:01 Last Admin: 07/22/18 21:22 Dose: 1 applicatio Pantoprazole Sodium (Protonix) 20 mg PO DAILY [facility] Last Admin: 07/22/18 08:36 Dose: 20 mg Pharmacy Profile Note (Vancomycin Consult Pharmacy) 1 each OTHER UNSCH PRN PRN Reason: Pharmacy to dose Potassium Chloride (Kcl) 20 meq PO BID [facility] Last Admin: 07/22/18 21:22 Dose: 20 meq Sodium Chloride (Ns Flush) 2 ml IV.FLUSH BID [facility] Last Admin: 07/22/18 21:25 Dose: 2 ml Sodium Chloride (Ns Flush) 2 ml IV.FLUSH PRN PRN PRN Reason: FLUSH AFTER USING IV ACCESS Last Admin: 07/21/18 06:00 Dose: 2 ml Torsemide (Demadex) 20 mg PO DAILY [facility] Last Admin: 07/22/18 10:12 Dose: 20 mg Allergies Allergy/AdvReac Type Severity Reaction Status Date / Time No Known Allergies Allergy Verified 04/06/18 17:04 Home Medications Medication Instructions Recorded Confirmed Type omeprazole 20 mg PO DAILY 04/01/18 07/18/18 History aspirin [Ye Aspirin] 325 mg PO DAILY 06/19/18 07/18/18 History carvedilol [Coreg] 3.125 mg PO BID 06/19/18 07/18/18 History gabapentin 06/19/18 History Results - Labs CBC & Chem 7: 07/20/18 18:02 07/22/18 05:45 Laboratory Results - last 24 hr 07/22/18 05:45 Creatinine 0.64 Estimated GFR Greater than 89 Vancomycin Trough 27.6 H Microbiology 07/19/18 17:19 Wound - Toe Gram Stain - Final 07/19/18 17:19 Wound - Toe Wound Culture - Final S. aureus MRSA - Procedures 07/19/2018 Right second toe amputation Assessment and Plan - Assessment (1) Gangrene of toe of right foot Code(s): I96 - Gangrene, not elsewhere classified Status: Acute Plan: s/p right 2nd toe amputation, Dr Gordillo. Follow up 1 week after discharge with Dr Gordillo. Ok to change dressing prior to discharge and leave that bandage intact until follow up. Keep dressing clean, dry, intact when discharged and dressing changes ordered while in-house. weightbearing as tolerated in surgical shoe right foot No further treatment anticipated. Podiatry signing off. Clear for discharge from podiatry
[2018-07-23] MEDS: Piperacil/Tazo 3.375 GM Premix 50 ML IV.SIG SCH ×3 (02:10→17:51)
[2018-07-23] MEDS: Morphine Inj 4 MG/ML Vial IV.PUSH PRN ×3 (03:27→17:50)
[2018-07-23] MEDS: Chlorhexidine Gluconate 2% 1 Pack (2 Cloths) TOPICAL SCH (03:30)
[2018-07-23] MEDS: Gabapentin 400 MG Capsule PO SCH ×4 (08:52→17:50)
[2018-07-23] MEDS: Enoxaparin Inj 40 MG/0.4 ML Syringe SQ SCH (08:52)
[2018-07-23] MEDS: Potassium Chloride 10 MEQ ER Capsule PO SCH ×2 (08:52→20:14)
[2018-07-23] MEDS: Lactobacillus Acidophilus/L. Spores Tablet PO SCH ×4 (08:52→17:50)
[2018-07-23] MEDS: Pantoprazole Sodium 20 MG DR Tablet PO SCH (08:52)
[2018-07-23] MEDS: Mupirocin 2% Nasal Oint Topical Syringe EACH NARE SCH ×2 (08:52→20:14)
[2018-07-23] MEDS: Sodium Chloride 0.9% 2 ML Flush BID IV.FLUSH SCH ×2 (08:53→22:16)
[2018-07-23] MEDS: Budesonide-Formoterol 160/4.5 MCG 6 GM Inhaler INH SCH ×2 (08:53→22:16)
[2018-07-23] MEDS: Torsemide 20 MG Tablet PO SCH (09:35)
--- NOTE | 2018-07-23 10:04 | P.PN ---
Subjective Interval history: Follow up right second toe gangrene, seen yesterday by Podiatry specialist recommended okay to discharge and follow as outpatient by Doctor Duy, leave the bandage intact until follow up , weightbearing as tolerated in surgical shoe right foot, signed off the case. 07/23: Seen in his bedroom he wants to go home now, discussed with nurse Linnea and with operations research manager not possible to discharge patient at this time, no safe discharge due to that [place] is not giving authorizations on Tuesday will need to place documents sent to [place] tomorrow even for HHC or for SNF placement for the patient, no nausea vomit or diarrhea. he was seen by Vascular surgery, the patient refused any vascular procedure femoral-popliteal bypass, okay to discharge and follow as outpatient in 3 to 4 weeks. Physical Exam Vital signs: Vital Signs 07/22/18 12:00 07/22/18 14:04 07/22/18 16:00 Temperature 97.8 F 98.4 F Pulse Rate 91 H 78 Respiratory Rate 18 17 20 Blood Pressure 111/55 L 128/67 Pulse Oximetry 93 L 98 07/22/18 20:00 07/23/18 00:00 07/23/18 08:00 Temperature 98.1 F 98.4 F 98.5 F Pulse Rate 95 H 113 H 103 H Respiratory Rate 18 18 16 Blood Pressure 110/60 142/60 H 74/43 L Pulse Oximetry 94 L 94 L 90 L Intake & Output 07/22/18 07/23/18 07/23/18 18:59 06:59 18:59 Intake Total 100 / 100 530 / 530 Output Total 300 / 300 Balance -200 / -200 530 / 530 Weight 68.8 kg Intake: IV 100 / 100 50 / 50 Zosyn 3.375 GM Premix 50 ML @ 100 / 100 50 / 50 100 mls/hr IV.SIG Q8H [facility] Rx#: [id number] Oral 480 / 480 Output: Urine 300 / 300 Other: # Incontinent Voids 4 Date of Last Bowel Movement 07/21/18 # Incontinent Bowel Movements 4 Narrative: GENERAL: Alert, Oriented x 3, NAD. SKIN: Warm and dry. HEAD: Normocephalic. EYES: No scleral icterus. No injection or drainage. NECK: Supple, trachea midline. No JVD or lymphadenopathy. CARDIOVASCULAR: Regular rate and rhythm without murmurs, gallops, or rubs. RESPIRATORY: Moderate air entry, no accessory muscle use. GASTROINTESTINAL: Abdomen soft, non-tender, nondistended. MUSCULOSKELETAL: No cyanosis, or edema. dressing over right foot as well as right L BKA stump BACK: Nontender without obvious deformity. No CVA tenderness. Results - Labs CBC & Chem 7: 07/20/18 18:02 07/23/18 15:40 Microbiology 07/19/18 17:19 Wound - Toe Gram Stain - Final 07/19/18 17:19 Wound - Toe Wound Culture - Final S. aureus MRSA - Procedures 07/19/2018 Right second toe amputation Assessment and Plan - Assessment (1) Gangrene of right foot Code(s): I96 - Gangrene, not elsewhere classified Status: Acute - Plan 68 years old man with Acute respiratory failure hypoxia-improving. -CTA pulmonary negative for PE Right 2nd toe gangrene - s/p Amputation of 2nd toe (right). - Currently on Vancomycin and Zosyn. 07/23: Seen in his bedroom he wants to go home now, discussed with nurse Miss Yarbrough and with operations research manager not possible to discharge patient at this time, no safe discharge due to that [place] is not giving authorizations on Tuesday will need to place documents sent to [place] tomorrow even for HHC or for SNF placement for the patient, as per Vascular surgery, the patient refused any vascular procedure femoral-popliteal bypass, okay to discharge and follow as outpatient in 3 to 4 weeks. Diastolic congestive heart failure -Continue Carvedilol 3.125mg BID. -2D echo shows normal EF. -Currently torsemide 20 mg daily. Hyperlipidemia - continue statin. DVT prophylaxis with Lovenox. Code Status: Full code. Discussed Condition With: patient and Nurse Miss Yarbrough Discharge Planning: awaiting arrangements by [employer].
--- NOTE | 2018-07-23 10:38 | P.PNVS ---
Subjective Subjective/Hospital Course: 68-year-old male known to me from previous admissions and recent surgeries. Several weeks ago patient underwent left below-knee amputation for gangrene of the foot. Patient came to my office because he fell on his stump and noticed some drainage. On exam patient has a small area of crusting and another 1 of small dehiscence very superficial so this should heal okay In addition patient has an area of partial thickness skin loss just subpatellar away from the actual stump and this must be due to either tape or some other sort of a burn Apparently home health has been taking very poor care of patients wound and he came to my office all bundled up with dirty dressings. Apparently the wound was not taken care off, was not washed or treated in any way. While this problem has been handled examination reveals right leg problem with wet gangrene of the right second toe and perhaps the third toe as well. CTA performed in March this year reveals occluded superficial femoral artery on the right with a reconstitution of the popliteal and this patient is a candidate for femoral-popliteal bypass however he has to be first taking care of , rehydrated and should have podiatry amputation of the second toe considering the [place] graft will be eventually placed and I do not want infection to spread to the synthetic tissues. Therefore in best case scenario patient should be stabilized placed on antibiotics have the second toe amputated and then may be by the end of the week we going to go ahead with a right femoral-popliteal bypass. Patient in addition has fairly severe distal disease with multilevel stenosis of all 3 vessels and therefore is at high risk of losing the right leg despite best care. Will follow 07/19/2018 Patient complain about pain in the right foot I have discussed this case with Dr. Gordillo and they fully support proceeding with surgery and amputation of the toe. Patient is a candidate for right femoral-popliteal bypass but I would wait for a while until the infection clears from the foot possibly early next week patient will be scheduled for right femoral-popliteal bypass 07/20/2018 Patient underwent toe amputation as per Dr. Gordillo He is now stable awake alert and oriented and waiting for a bed on the floor All things equal will take patient next week for right femoral-popliteal bypass to maximize the blood flow to the right foot and aid in healing of this If the small vessel disease is severe enough this patient will not heal the wound no matter what but every effort should be made to preserve the flow and the remainder of the foot 07/23/2018 Nothing to add to care from vascular point at this time Patient refuses any vascular procedure at this time as far as a femoral- popliteal bypass is concerned and they believe that he would be best served to have this in the future considering his poor general status Patient wants to go home and take care of his dog Foot care as per podiatry Patient can be discharged from my point any time and I will see him in the office in about 3-4 weeks Objective Vital Signs / I&O: Vital Signs 07/22/18 12:00 07/22/18 14:04 07/22/18 16:00 Temperature 97.8 F 98.4 F Pulse Rate 91 H 78 Respiratory Rate 18 17 20 Blood Pressure 111/55 L 128/67 Pulse Oximetry 93 L 98 07/22/18 20:00 07/23/18 00:00 07/23/18 08:00 Temperature 98.1 F 98.4 F 98.5 F Pulse Rate 95 H 113 H 103 H Respiratory Rate 18 18 16 Blood Pressure 110/60 142/60 H 74/43 L Pulse Oximetry 94 L 94 L 90 L Intake & Output 07/22/18 07/23/18 07/23/18 18:59 06:59 18:59 Intake Total 100 / 100 530 / 530 50 / 50 Output Total 300 / 300 Balance -200 / -200 530 / 530 50 / 50 Weight 68.8 kg Intake: IV 100 / 100 50 / 50 50 / 50 Zosyn 3.375 GM Premix 50 ML @ 100 / 100 50 / 50 50 / 50 100 mls/hr IV.SIG Q8H [facility] Rx#: [id number] Oral 480 / 480 Output: Urine 300 / 300 Other: # Incontinent Voids 4 Date of Last Bowel Movement 07/21/18 # Incontinent Bowel Movements 4 Microbiology 07/19/18 17:19 Gram Stain - Final Wound - Toe Wound Culture - Final S. aureus MRSA
[2018-07-23] MEDS: Vancomycin Inj 1,000 MG in Sodium Chlor 0.9% Inj 250 ML IV.SIG SCH (20:12)
[2018-07-24] MEDS: Piperacil/Tazo 3.375 GM Premix 50 ML IV.SIG SCH ×3 (01:07→20:50)
[2018-07-24] MEDS: Chlorhexidine Gluconate 2% 1 Pack (2 Cloths) TOPICAL SCH (05:58)
[2018-07-24 06:08] LABS: Glomerular Filtration Rate Greater Than 89 mL/min (>89)
[2018-07-24] MEDS: Potassium Chloride 10 MEQ ER Capsule PO SCH ×2 (08:31→20:49)
[2018-07-24] MEDS: Gabapentin 400 MG Capsule PO SCH ×3 (08:31→17:25)
[2018-07-24] MEDS: Torsemide 20 MG Tablet PO SCH (08:31)
[2018-07-24] MEDS: Lactobacillus Acidophilus/L. Spores Tablet PO SCH ×3 (08:31→17:25)
[2018-07-24] MEDS: Pantoprazole Sodium 20 MG DR Tablet PO SCH (08:31)
[2018-07-24] MEDS: Enoxaparin Inj 40 MG/0.4 ML Syringe SQ SCH (08:32)
[2018-07-24] MEDS: Morphine Inj 4 MG/ML Vial IV.PUSH PRN ×4 (08:32→20:50)
[2018-07-24] MEDS: Sodium Chloride 0.9% 2 ML Flush BID IV.FLUSH SCH ×2 (08:34→20:50)
[2018-07-24] MEDS: Budesonide-Formoterol 160/4.5 MCG 6 GM Inhaler INH SCH ×2 (08:35→20:50)
[2018-07-24] MEDS: Vancomycin Inj 1,000 MG in Sodium Chlor 0.9% Inj 250 ML IV.SIG SCH ×2 (08:53→19:44)
[2018-07-24] MEDS: Mupirocin 2% Nasal Oint Topical Syringe EACH NARE SCH ×2 (08:54→20:50)
[2018-07-24 12:06] LABS: Baso # (Auto) 0.1 th/mm3 (0.0-0.2); Baso % (Auto) 1.1 % (0.0-2.0); Eos # (Auto) 0.3 th/mm3 (0.0-0.4); Eos % (Auto) 3.7 % (0.0-4.0); Hematocrit 35.4 % (39.0-51.0); Hemoglobin 11.7 gm/dL (13.0-17.0); Lymph # (Auto) 1.6 th/mm3 (1.0-4.8); Mean Corpuscular Hemoglobin 28.7 pg (27.0-34.0); Mean Corpuscular Volume 86.9 fL (80.0-100.0); Mean Platelet Volume 7.3 fL (7.0-11.0); Mono # (Auto) 0.6 th/mm3 (0.0-0.9); Mono % (Auto) 7.1 % (0.0-8.0); Neut # (Auto) 5.9 th/mm3 (1.8-7.7); Neut % (Auto) 69.1 % (16.0-70.0); Platelet Count 305 th/mm3 (150-450); Red Blood Count 4.07 mil/mm3 (4.50-5.90); Red Cell Distribution Width 20.6 % (11.6-17.2); White Blood Count 8.5 th/mm3 (4.0-11.0)
[2018-07-24 12:25] LABS: Alanine Aminotransferase 22 U/L (12-78); Albumin 1.9 g/dL (3.4-5.0); Anion Gap 5 meq/L (5-15); Aspartate Aminotransferase 42 U/L (15-37); Blood Urea Nitrogen 13 mg/dL (7-18); Calcium 7.5 mg/dL (8.5-10.1); Carbon Dioxide 33.9 meq/L (21.0-32.0); Chloride 93 meq/L (98-107); Glucose,Random 109 mg/dL (74-106); Magnesium 1.4 mg/dL (1.5-2.5); Phosphorus 3.8 mg/dL (2.5-4.9); Sodium 132 meq/L (136-145)
[2018-07-24 12:34] LABS: Alkaline Phosphatase 106 U/L (45-117); Free T4 (Free Thyroxine) 1.04 ng/dL (0.76-1.46); Glomerular Filtration Rate Greater Than 89 mL/min (>89)
--- NOTE | 2018-07-24 17:07 | P.PNIM ---
Subjective Interval history: Mr. Wang is a 68-year-old male. 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 Since this time that left leg and wound have been healing well. However he has developed an infection and gangrenous changes at 1 toe on his right foot. He denies any fevers. He does say that he has pain. No other complaints today. Neuro-Stimulator in place, no MRI option. MRI cancelled. CT of foot ordered. 07-19 Follow up for right 2nd toe gangrene. Patient was seen in the AM. Doing well. No acute concerns. Afebrile. Waiting for surgery. In the afternoon, patient underwent 2nd right toe amputation. Post-Op, patient's oxygenation was very poor and was difficult to maintain. After receiving Lasix 40mg IV once and 125mg of Solumedrol as well as breathing treatment, patient still had hypoxia. I discussed with our night team and we decided to transfer patient to ICU or CIC for closer observation. Additional 40mg of Lasix will be given. 07-20 Follow up for right 2nd toe gangrene and acute respiratory failure. Currently doing well. He is requiring significant amount of oxygen to maintain O2 saturation above 90%. He denies any chest pain, fever or chills. 07-22 Follow up right second toe gangrene 07/22/18-Patient seen and examined; complains of poorly controlled pain, Afebrile 07-23 Follow up right second toe gangrene, seen yesterday by Podiatry specialist recommended okay to discharge and follow as outpatient by Doctor Duy, leave the bandage intact until follow up , weightbearing as tolerated in surgical shoe right foot, signed off the case. 07/23: Seen in his bedroom he wants to go home now, discussed with nurse Miss Yarbrough and with seed corn production manager not possible to discharge patient at this time, no safe discharge due to that [place] is not giving authorizations on Tuesday will need to place documents sent to [place] tomorrow even for HHC or for SNF placement for the patient, no nausea vomit or diarrhea. he was seen by Vascular surgery, the patient refused any vascular procedure femoral-popliteal bypass, okay to discharge and follow as outpatient in 3 to 4 weeks. 07-24 WANTS TO GO HOME HOPEFULLY CAN GO HOME IN AM AFTER HHC IS SET UP DW RN AND PT AND CM [facility] FOR WOUND Physical Exam Vital signs: Vital Signs 07/23/18 20:00 07/24/18 00:00 07/24/18 07:07 Temperature 97.8 F 97.8 F Pulse Rate 95 H 85 Respiratory Rate 16 16 8 L Blood Pressure 86/53 L 86/56 L Pulse Oximetry 94 L 95 07/24/18 08:00 07/24/18 12:00 Temperature 97.4 F L 97.8 F Pulse Rate 89 90 Respiratory Rate 19 18 Blood Pressure 133/74 119/77 Pulse Oximetry 98 92 L Intake & Output 07/23/18 07/24/18 07/24/18 18:59 06:59 18:59 Intake Total 100 / 100 300 / 300 300 / 300 Output Total 550 / 550 Balance 100 / 100 300 / 300 -250 / -250 Weight 65.2 kg Intake: IV 100 / 100 300 / 300 300 / 300 Zosyn 3.375 GM Premix 50 ML @ 100 / 100 50 / 50 50 / 50 100 mls/hr IV.SIG Q8H [facility] Rx#: [id number] Vancomycin Inj 1,000 MG In NS 250 / 250 250 / 250 Inj 250 ML @ 250 mls/hr IV.SIG Q12H [facility] Rx#:[id number] Output: Urine 550 / 550 Other: # Voids 3 # Urine Diapers 350 # Bowel Movements 2 Narrative: GENERAL: Alert, Oriented x 3, NAD. SKIN: Warm and dry. HEAD: Normocephalic. EYES: No scleral icterus. No injection or drainage. NECK: Supple, trachea midline. No JVD or lymphadenopathy. CARDIOVASCULAR: Regular rate and rhythm without murmurs, gallops, or rubs. RESPIRATORY: Moderate air entry, no accessory muscle use. GASTROINTESTINAL: Abdomen soft, non-tender, nondistended. MUSCULOSKELETAL: No cyanosis, or edema. dressing over right foot as well as right L BKA stump BACK: Nontender without obvious deformity. No CVA tenderness. Results - Labs CBC & Chem 7: 07/24/18 11:56 07/24/18 11:56 Laboratory Results - last 24 hr 07/24/18 07/24/18 07/24/18 04:55 11:56 11:56 WBC 8.5 RBC 4.07 L Hgb 11.7 L Hct 35.4 L MCV 86.9 MCH 28.7 MCHC 33.0 RDW 20.6 H Plt Count 305 MPV 7.3 Neut % (Auto) 69.1 Lymph % (Auto) 19.0 [place] % (Auto) 7.1 Eos % (Auto) 3.7 Baso % (Auto) 1.1 Neut # (Auto) 5.9 Lymph # (Auto) 1.6 [place] # (Auto) 0.6 Eos # (Auto) 0.3 Baso # (Auto) 0.1 WBC Differential . Differential Comment Auto diff final Sodium 132 L Potassium 4.0 Chloride 93 L Carbon Dioxide 33.9 H Anion Gap 5 BUN 13 Creatinine 0.73 0.66 Estimated GFR Greater than 89 Greater than 89 Random Glucose 109 H Calcium 7.5 L Phosphorus 3.8 Magnesium 1.4 L Total Bilirubin 0.2 AST 42 H ALT 22 Alkaline Phosphatase 106 Total Protein 6.0 L Albumin 1.9 L TSH 6.500 H Free T4 1.04 - Procedures 07/19/2018 Right second toe amputation Assessment and Plan - Assessment (1) Gangrene of right foot Code(s): I96 - Gangrene, not elsewhere classified Status: Acute - Plan 68 years old man with Acute respiratory failure hypoxia-improving. -CTA pulmonary negative for PE Right 2nd toe gangrene - s/p Amputation of 2nd toe (right). - Currently on Vancomycin and Zosyn. 07/23: Seen in his bedroom he wants to go home now, discussed with nurse Miss Yarbrough and with seed corn production manager not possible to discharge patient at this time, no safe discharge due to that [place] is not giving authorizations on Tuesday will need to place documents sent to [place] tomorrow even for HHC or for SNF placement for the patient, as per Vascular surgery, the patient refused any vascular procedure femoral-popliteal bypass, okay to discharge and follow as outpatient in 3 to 4 weeks. Diastolic congestive heart failure -Continue Carvedilol 3.125mg BID. -2D echo shows normal EF. -Currently torsemide 20 mg daily. Hyperlipidemia - continue statin. DVT prophylaxis with Lovenox. [facility] Code Status: FULL CODE Discussed Condition With: RN AND PT AND CM Discharge Planning: DC TO HOME IF ABLE
--- NOTE | 2018-07-24 17:08 | P.DCO ---
- Physical Therapy Order: Evaluate and treat, Improve ambulation, Strength and gait training - Occupational Therapy Order: Evaluate and treat, Improve ADL, Gross motor coordination, Fine motor coordination - Home Health Nursing Order: Signs/symptoms of disease process, Wound care and dressing changes, Nursing assessment with vital signs - Home Health Aide Order: To assist in: Bathing and personal care, echocardiography radiology technologist and meal prep - Print Shop Helper Order: To evaluate: Living conditions/environment, Support services - Case Management Consult Yes - Certification I have seen patient Aron Wang on 07/24/18. My clinical findings support the need for the requested home health care services because: Limited mobility due to disease progression, Medication compliance is questionable, Limited ability to care for self, High risk of falls, Infection with risk of complications I certify that my clinical findings support that this patient is homebound because: Post-op weakness, Impaired cognitive ability/safety, Unsteady gait/balance, Unsafe to leave home unassisted, Non-ambulatory: confined to bed or chair
[2018-07-24 17:09] LABS: Hemoglobin A1c 6.2 % (4.3-6.0)
--- NOTE | 2018-07-24 17:20 | P.DS ---
Date of admission: 07/18/18 14:32 Primary care physician: UNKNOWN Attending physician on discharge: Dhruv Tobias Anticipated date of discharge: 07/24/18 Brief History from admission: Mr. Wang is a 68-year-old male. 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 Since this time that left leg and wound have been healing well. However he has developed an infection and gangrenous changes at 1 toe on his right foot. He denies any fevers. He does say that he has pain. No other complaints today. Patient update on day of discharge: Mr. Wang is a 68-year-old male. 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 Since this time that left leg and wound have been healing well. However he has developed an infection and gangrenous changes at 1 toe on his right foot. He denies any fevers. He does say that he has pain. No other complaints today. Neuro-Stimulator in place, no MRI option. MRI cancelled. CT of foot ordered. 07-19 Follow up for right 2nd toe gangrene. Patient was seen in the AM. Doing well. No acute concerns. Afebrile. Waiting for surgery. In the afternoon, patient underwent 2nd right toe amputation. Post-Op, patient's oxygenation was very poor and was difficult to maintain. After receiving Lasix 40mg IV once and 125mg of Solumedrol as well as breathing treatment, patient still had hypoxia. I discussed with our night team and we decided to transfer patient to ICU or CIC for closer observation. Additional 40mg of Lasix will be given. 07-20 Follow up for right 2nd toe gangrene and acute respiratory failure. Currently doing well. He is requiring significant amount of oxygen to maintain O2 saturation above 90%. He denies any chest pain, fever or chills. 07-22 Follow up right second toe gangrene 07/22/18-Patient seen and examined; complains of poorly controlled pain, Afebrile 07-23 Follow up right second toe gangrene, seen yesterday by Podiatry specialist recommended okay to discharge and follow as outpatient by Doctor Treviño, leave the bandage intact until follow up , weightbearing as tolerated in surgical shoe right foot, signed off the case. 07/23: Seen in his bedroom he wants to go home now, discussed with nurse Miss Yarbrough and with sales training manager not possible to discharge patient at this time, no safe discharge due to that [place] is not giving authorizations on Tuesday will need to place documents sent to [place] tomorrow even for HHC or for SNF placement for the patient, no nausea vomit or diarrhea. he was seen by Vascular surgery, the patient refused any vascular procedure femoral-popliteal bypass, okay to discharge and follow as outpatient in 3 to 4 weeks. 07-24 WANTS TO GO HOME HOPEFULLY CAN GO HOME IN AM AFTER HHC IS SET UP DW RN AND PT AND EPIFANIO SERRANO AT ME FOR WOUND DS: Diagnosis - Discharge Diagnosis (1) Gangrene of right foot Status: Acute (2) Gangrene of toe of right foot Status: Acute (3) Amputation of leg Status: Chronic (4) Cellulitis Status: Acute (5) Dyspnea Status: Chronic (6) Gangrene of left foot Status: Chronic (7) Hypoalbuminemia Status: Chronic (8) Hyponatremia Status: Chronic (9) Peripheral vascular disease Status: Chronic (10) Pneumonia Status: Chronic (11) Anemia Status: Chronic (12) COPD (chronic obstructive pulmonary disease) Status: Chronic (13) CVA (cerebral vascular accident) Status: Suspected DS: Medications - Discharge Medications Prescriptions: acidophilus-sporogenes [Acidophilus Ex Str (L. sporog)] 1 tab PO TID #90 tab aspirin [Ye Aspirin] 325 mg PO DAILY #30 tab atorvastatin 40 mg PO HS #30 tab budesonide-formoterol [Symbicort] 1 puff INH BID #1 inh carvedilol [Coreg] 3.125 mg PO BID #60 tab gabapentin [Neurontin] 400 mg PO TID #90 cap hydrocodone-acetaminophen 1 tab PO Q4H PRN #18 tab PRN Reason: Pain 7 to 10 ipratropium-albuterol 1 amp NEB Q4HR NEB PRN #180 amp PRN Reason: Dyspnea metronidazole [Flagyl] 500 mg PO TID #42 tab pantoprazole [Protonix] 20 mg PO DAILY #30 tab potassium chloride 20 meq PO BID #60 cap sulfamethoxazole-trimethoprim [Bactrim DS] 1 tab PO BID #28 tab torsemide 20 mg PO DAILY #30 tab DS: Summary Hospital Course: Mr. Wang is a 68-year-old male. 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 Since this time that left leg and wound have been healing well. However he has developed an infection and gangrenous changes at 1 toe on his right foot. He denies any fevers. He does say that he has pain. No other complaints today. Neuro-Stimulator in place, no MRI option. MRI cancelled. CT of foot ordered. 07-19 Follow up for right 2nd toe gangrene. Patient was seen in the AM. Doing well. No acute concerns. Afebrile. Waiting for surgery. In the afternoon, patient underwent 2nd right toe amputation. Post-Op, patient's oxygenation was very poor and was difficult to maintain. After receiving Lasix 40mg IV once and 125mg of Solumedrol as well as breathing treatment, patient still had hypoxia. I discussed with our night team and we decided to transfer patient to ICU or CIC for closer observation. Additional 40mg of Lasix will be given. 07-20 Follow up for right 2nd toe gangrene and acute respiratory failure. Currently doing well. He is requiring significant amount of oxygen to maintain O2 saturation above 90%. He denies any chest pain, fever or chills. 07-22 Follow up right second toe gangrene 07/22/18-Patient seen and examined; complains of poorly controlled pain, Afebrile 07-23 Follow up right second toe gangrene, seen yesterday by Podiatry specialist recommended okay to discharge and follow as outpatient by Doctor Duy, leave the bandage intact until follow up , weightbearing as tolerated in surgical shoe right foot, signed off the case. 07/23: Seen in his bedroom he wants to go home now, discussed with nurse Miss Yarbrough and with sales training manager not possible to discharge patient at this time, no safe discharge due to that [place] is not giving authorizations on Tuesday will need to place documents sent to [place] tomorrow even for HHC or for SNF placement for the patient, no nausea vomit or diarrhea. he was seen by Vascular surgery, the patient refused any vascular procedure femoral-popliteal bypass, okay to discharge and follow as outpatient in 3 to 4 weeks. 07-24 WANTS TO GO HOME HOPEFULLY CAN GO HOME IN AM AFTER C IS SET UP DW RN AND PT AND CM BACTMASOUD AT ME FOR WOUND E-FORCSE Prescription Drug Monitoring Database has been queried and verified prior to prescribing the controlled substance. Acute pain exception. This patient has normal, predicted, physiological, and time limited response to an adverse mechanical stimulus associated with surgery, trauma, or acute illness as described in my notes. There is a lack of alternative treatment options other than to include the prescribed narcotic treatment for this condition. Will give Rx for acetaminophen/hydrocodone No. 18 tablets - Time Spent with Patient Total time spent providing and/or coordinating discharge services: Greater than 30 minutes - Quality: VTE Deep Vein Thrombosis/Pulmonary Embolism Present on Admission: No Exam Vital signs: Vital Signs 07/23/18 20:00 07/24/18 00:00 07/24/18 07:07 Temperature 97.8 F 97.8 F Pulse Rate 95 H 85 Respiratory Rate 16 16 8 L Blood Pressure 86/53 L 86/56 L Pulse Oximetry 94 L 95 07/24/18 08:00 07/24/18 12:00 Temperature 97.4 F L 97.8 F Pulse Rate 89 90 Respiratory Rate 19 18 Blood Pressure 133/74 119/77 Pulse Oximetry 98 92 L Intake & Output 07/23/18 07/24/18 07/24/18 18:59 06:59 18:59 Intake Total 100 / 100 300 / 300 300 / 300 Output Total 550 / 550 Balance 100 / 100 300 / 300 -250 / -250 Weight 65.2 kg Intake: IV 100 / 100 300 / 300 300 / 300 Zosyn 3.375 GM Premix 50 ML @ 100 / 100 50 / 50 50 / 50 100 mls/hr IV.SIG Q8H [facility] Rx#: [id number] Vancomycin Inj 1,000 MG In NS 250 / 250 250 / 250 Inj 250 ML @ 250 mls/hr IV.SIG Q12H [facility] Rx#:[id number] Output: Urine 550 / 550 Other: # Voids 3 # Urine Diapers 350 # Bowel Movements 2 Narrative: GENERAL: Alert, Oriented x 3, NAD. SKIN: Warm and dry. HEAD: Normocephalic. EYES: No scleral icterus. No injection or drainage. NECK: Supple, trachea midline. No JVD or lymphadenopathy. CARDIOVASCULAR: Regular rate and rhythm without murmurs, gallops, or rubs. RESPIRATORY: Moderate air entry, no accessory muscle use. GASTROINTESTINAL: Abdomen soft, non-tender, nondistended. MUSCULOSKELETAL: No cyanosis, or edema. dressing over right foot as well as right L BKA stump BACK: Nontender without obvious deformity. No CVA tenderness. Results Procedures completed during hospitalization: 07/19/2018 Right second toe amputation Completed studies during hospitalization: Pending at discharge 07/19/18 07:34 Surgical [PTH] Routine Labs on day of discharge: Labs from last 24 hours 07/24/18 07/24/18 07/24/18 11:56 11:56 11:56 WBC 8.5 RBC 4.07 L Hgb 11.7 L Hct 35.4 L MCV 86.9 MCH 28.7 MCHC 33.0 RDW 20.6 H Plt Count 305 MPV 7.3 Neut % (Auto) 69.1 Lymph % (Auto) 19.0 [place] % (Auto) 7.1 Eos % (Auto) 3.7 Baso % (Auto) 1.1 Neut # (Auto) 5.9 Lymph # (Auto) 1.6 [place] # (Auto) 0.6 Eos # (Auto) 0.3 Baso # (Auto) 0.1 WBC Differential . Differential Comment Auto diff final Sodium 132 L Potassium 4.0 Chloride 93 L Carbon Dioxide 33.9 H Anion Gap 5 BUN 13 Creatinine 0.66 Estimated GFR Greater than 89 Random Glucose 109 H Hemoglobin A1c Pending Calcium 7.5 L Phosphorus 3.8 Magnesium 1.4 L Total Bilirubin 0.2 AST 42 H ALT 22 Alkaline Phosphatase 106 Total Protein 6.0 L Albumin 1.9 L TSH 6.500 H Free T4 1.04 07/24/18 04:55 WBC RBC Hgb Hct MCV MCH MCHC RDW Plt Count MPV Neut % (Auto) Lymph % (Auto) [place] % (Auto) Eos % (Auto) Baso % (Auto) Neut # (Auto) Lymph # (Auto) [place] # (Auto) Eos # (Auto) Baso # (Auto) WBC Differential Differential Comment Sodium Potassium Chloride Carbon Dioxide Anion Gap BUN Creatinine 0.73 Estimated GFR Greater than 89 Random Glucose Hemoglobin A1c Calcium Phosphorus Magnesium Total Bilirubin AST ALT Alkaline Phosphatase Total Protein Albumin TSH Free T4 - Impressions ITS Impressions Foot CT 07/18/18 00:00 CONCLUSION: 1. Multiple focal lucencies seen throughout the bony structures in the foot which could be seen with prominent osteopenia. Other underlying conditions such as reflex sympathetic dystrophy could have a similar appearance in the correct clinical situation. 2. No areas of bony fracture or bony destruction. Chest X-Ray 07/19/18 00:00 CONCLUSION: Interstitial prominence again noted with developing left basilar airspace disease and atelectasis. Chest CTA 07/20/18 00:00 CONCLUSION: 1. No pulmonary embolus. 2. Mild pulmonary edema possible in the proper clinical setting. Otherwise mostly chronic appearing interstitial opacities in a basilar predominant distribution No pleural effusion. 3. Moderate to severe emphysema. 4. Mild, symmetric dependent atelectasis of both lung bases. 5. Nonspecific mediastinal lymphadenopathy. Upper limits of normal hilar lymph nodes. No axillary lymphadenopathy. Discharge Plan - Discharge Disposition Patient Disposition: /Home Health Service - Discharge Condition Condition: Fair - Discharge Order Discharge Orders: Discharge Order (Routine); Ordered 07/24/18 Ordered By: Dhruv Tobias - Discharge Details Anticipated Discharge Date: 07/24/18 Discharge Comment: dc to home with [facility] - Physicians Team Primary Care Provider: UNKNOWN, Attending Provider: Dhruv Tobias Other Providers: Aba Treviño DPM ; Bertram Luciano MD - Rxs /Orders / Referrals /Forms Prescriptions: New acidophilus-sporogenes [Acidophilus Ex Str (L. sporog)] 35 million- 25 million cell Tablet 1 tab PO TID Qty: 90 RF: 0 budesonide-formoterol [Symbicort] 160-4.5 mcg/actuation Hfa Aerosol Inhaler 1 puff INH BID Qty: 1 RF: 0 gabapentin [Neurontin] 400 mg Capsule 400 mg PO TID Qty: 90 RF: 0 hydrocodone-acetaminophen 10-325 mg Tablet 1 tab PO Q4H PRN (Reason: Pain 7 to 10) Qty: 18 RF: 0 ipratropium-albuterol 0.5 mg-3 mg(2.5 mg base)/3 mL Solution For Nebulization 1 amp NEB Q4HR NEB PRN (Reason: Dyspnea) Qty: 180 RF: 0 pantoprazole [Protonix] 20 mg Tablet,Delayed Release (Dr/Ec) 20 mg PO DAILY Qty: 30 RF: 0 sulfamethoxazole-trimethoprim [Bactrim DS] 800-160 mg Tablet 1 tab PO BID Qty: 28 RF: 0 torsemide 20 mg Tablet 20 mg PO DAILY Qty: 30 RF: 0 Continue aspirin [Ye Aspirin] 325 mg tablet 325 mg PO DAILY Qty: 30 atorvastatin 40 mg Tablet 40 mg PO HS Qty: 30 RF: 0 carvedilol [Coreg] 3.125 mg tablet 3.125 mg PO BID Qty: 60 metronidazole [Flagyl] 250 mg Tablet 500 mg PO TID Qty: 42 RF: 0 potassium chloride 10 mEq Capsule, Extended Release 20 meq PO BID Qty: 60 RF: 0 Discontinued furosemide [Lasix] 20 mg Tablet 20 mg PO BID Qty: 60 RF: 0 gabapentin 800 mg Tablet omeprazole 20 mg Capsule,Delayed Release(Dr/Ec) 20 mg PO DAILY Referrals: Aba Treviño DPYovani [Physician] - See Instructions (1 WEEK) Bertram Luciano MD [Physician] - See Instructions (3 TO 4 WEEKS) UNKNOWN, [Primary Care Provider] - See Instructions ([facility]) - Discharge Instructions Patient Printed Instructions: Incision and Drainage (DC)
[2018-07-24] MEDS ORDERED: Pharmacy Ordered Lab Info OTHER ONE (19:45)
--- NOTE | 2018-07-24 21:26 | P.PN ---
Subjective Interval history: Delayed entry for 07/21/2018 Follow up for right 2nd toe gangrene and acute respiratory failure. Patient is resting in bed. Denies any acute concerns. With O2 sensor attached to his right ear, his O2 sat appears to be well above 90% on 3-4 L of O2. Physical Exam Vital signs: Vital Signs 07/24/18 00:00 07/24/18 07:07 07/24/18 08:00 Temperature 97.8 F 97.4 F L Pulse Rate 85 89 Respiratory Rate 16 8 L 19 Blood Pressure 86/56 L 133/74 Pulse Oximetry 95 98 07/24/18 12:00 07/24/18 16:00 Temperature 97.8 F 98.1 F Pulse Rate 90 91 H Respiratory Rate 18 18 Blood Pressure 119/77 130/63 Pulse Oximetry 92 L 93 L Intake & Output 07/24/18 07/24/18 07/25/18 06:59 18:59 06:59 Intake Total 300 / 300 1200 / 1200 Output Total 1400 / 1400 Balance 300 / 300 -200 / -200 Weight 65.2 kg Intake: IV 300 / 300 300 / 300 Zosyn 3.375 GM Premix 50 ML @ 50 / 50 50 / 50 100 mls/hr IV.SIG Q8H [facility] Rx#: [id number] Vancomycin Inj 1,000 MG In NS 250 / 250 250 / 250 Inj 250 ML @ 250 mls/hr IV.SIG Q12H [facility] Rx#:[id number] Oral 900 / 900 Output: Urine 1400 / 1400 Other: # Urine Diapers 350 # Bowel Movements 1 Narrative: GENERAL: Alert, Oriented x 3, NAD. SKIN: Warm and dry. HEAD: Normocephalic. EYES: No scleral icterus. No injection or drainage. NECK: Supple, trachea midline. No JVD or lymphadenopathy. CARDIOVASCULAR: Regular rate and rhythm without murmurs, gallops, or rubs. RESPIRATORY: Moderate air entry, no accessory muscle use. GASTROINTESTINAL: Abdomen soft, non-tender, nondistended. MUSCULOSKELETAL: No cyanosis, or edema. dressing over right foot as well as right L BKA stump BACK: Nontender without obvious deformity. No CVA tenderness. Results - Labs CBC & Chem 7: 07/24/18 11:56 07/24/18 11:56 Laboratory Results - last 24 hr 07/24/18 07/24/18 07/24/18 04:55 11:56 11:56 WBC 8.5 RBC 4.07 L Hgb 11.7 L Hct 35.4 L MCV 86.9 MCH 28.7 MCHC 33.0 RDW 20.6 H Plt Count 305 MPV 7.3 Neut % (Auto) 69.1 Lymph % (Auto) 19.0 [place] % (Auto) 7.1 Eos % (Auto) 3.7 Baso % (Auto) 1.1 Neut # (Auto) 5.9 Lymph # (Auto) 1.6 [place] # (Auto) 0.6 Eos # (Auto) 0.3 Baso # (Auto) 0.1 WBC Differential . Differential Comment Auto diff final Sodium 132 L Potassium 4.0 Chloride 93 L Carbon Dioxide 33.9 H Anion Gap 5 BUN 13 Creatinine 0.73 0.66 Estimated GFR Greater than 89 Greater than 89 Random Glucose 109 H Hemoglobin A1c Calcium 7.5 L Phosphorus 3.8 Magnesium 1.4 L Total Bilirubin 0.2 AST 42 H ALT 22 Alkaline Phosphatase 106 Total Protein 6.0 L Albumin 1.9 L TSH 6.500 H Free T4 1.04 Vancomycin Trough 07/24/18 07/24/18 11:56 19:40 WBC RBC Hgb Hct MCV MCH MCHC RDW Plt Count MPV Neut % (Auto) Lymph % (Auto) [place] % (Auto) Eos % (Auto) Baso % (Auto) Neut # (Auto) Lymph # (Auto) [place] # (Auto) Eos # (Auto) Baso # (Auto) WBC Differential Differential Comment Sodium Potassium Chloride Carbon Dioxide Anion Gap BUN Creatinine Estimated GFR Random Glucose Hemoglobin A1c 6.2 H Calcium Phosphorus Magnesium Total Bilirubin AST ALT Alkaline Phosphatase Total Protein Albumin TSH Free T4 Vancomycin Trough 20.6 H - Procedures 07/19/2018 Right second toe amputation Assessment and Plan - Assessment (1) Gangrene of right foot Code(s): I96 - Gangrene, not elsewhere classified Status: Acute (2) Gangrene of toe of right foot Code(s): I96 - Gangrene, not elsewhere classified Status: Acute (3) Amputation of leg Code(s): Z89.619 - Acquired absence of unspecified leg above knee Status: Chronic (4) Cellulitis Code(s): L03.90 - Cellulitis, unspecified Status: Acute (5) Dyspnea Code(s): R06.00 - Dyspnea, unspecified Status: Chronic (6) Gangrene of left foot Code(s): I96 - Gangrene, not elsewhere classified Status: Chronic (7) Hypoalbuminemia Code(s): E88.09 - Other disorders of plasma-protein metabolism, not elsewhere classified Status: Chronic (8) Hyponatremia Code(s): E87.1 - Hypo-osmolality and hyponatremia Status: Chronic (9) Peripheral vascular disease Code(s): I73.9 - Peripheral vascular disease, unspecified Status: Chronic (10) Pneumonia Code(s): J18.9 - Pneumonia, unspecified organism Status: Chronic (11) Anemia Code(s): D64.9 - Anemia, unspecified Status: Chronic (12) COPD (chronic obstructive pulmonary disease) Code(s): J44.9 - Chronic obstructive pulmonary disease, unspecified Status: Chronic (13) CVA (cerebral vascular accident) Code(s): I63.9 - Cerebral infarction, unspecified Status: Suspected - Plan Mr. Wang is a 68-year-old male with a history of peripheral vascular disease and had a left lower extremity amputation (BKA) on 06/23/2018. He developed gangrene of his right 2nd toe. Podiatry and vascular surgery were consulted. Acute respiratory failure hypoxia -Chest x-ray findings does not correlate with profound hypoxia patient is experiencing. -CTA shows no Pulmonary embolism. -Continue supplemental O2 to keep O2 sat > 90%. Right 2nd toe gangrene - s/p Amputation of 2nd toe (right). - Currently on Vancomycin and Zosyn. Congestive heart failure - likely diastolic. -Continue Carvedilol 3.125mg BID. -2D echo shows normal EF. -Continue torsemide 20 mg daily. Hyperlipidemia - continue statin. Full code. Lovenox. (4) Cellulitis Qualifiers: Site of cellulitis: other site Qualified Code(s): L03.818 - Cellulitis of other sites
[2018-07-25] MEDS: Morphine Inj 4 MG/ML Vial IV.PUSH PRN ×2 (00:41→04:37)
[2018-07-25 03:02] VITALS: RESP 17
[2018-07-25 03:47] VITALS: BP 115/63; PULSE 111; TEMP 98.2; O2SAT 82
[2018-07-25] MEDS: Chlorhexidine Gluconate 2% 1 Pack (2 Cloths) TOPICAL SCH (04:36)
[2018-07-25] MEDS: Piperacil/Tazo 3.375 GM Premix 50 ML IV.SIG SCH (04:38)
[2018-07-25 07:41] LABS: Glomerular Filtration Rate Greater Than 89 mL/min (>89)
[2018-07-25 07:42] LABS: Vancomycin,Random 21.9 Comment
[2018-07-25] MEDS: Potassium Chloride 10 MEQ ER Capsule PO SCH (08:21)
[2018-07-25] MEDS: Enoxaparin Inj 40 MG/0.4 ML Syringe SQ SCH (08:22)
[2018-07-25] MEDS: Torsemide 20 MG Tablet PO SCH (08:22)
[2018-07-25] MEDS: Pantoprazole Sodium 20 MG DR Tablet PO SCH (08:22)
[2018-07-25] MEDS: Lactobacillus Acidophilus/L. Spores Tablet PO SCH (08:22)
[2018-07-25] MEDS: Gabapentin 400 MG Capsule PO SCH (08:22)
[2018-07-25] MEDS: Sodium Chloride 0.9% 2 ML Flush BID IV.FLUSH SCH (09:38)
[2018-07-25] MEDS: Budesonide-Formoterol 160/4.5 MCG 6 GM Inhaler INH SCH (09:38)
== END 2018-07-25 12:58 | disposition home health service (06) ==
LOC: N07 14:32 → N03 07-19 22:17 → N07 07-21 17:28
PROVIDERS: ADMIT Hospitalist; ATTEND Hospitalist